=== PATIENT | female | born 1965 | race Hispanic/Latino ===

== ENCOUNTER 2018-03-13 21:04 | Emergency (ER) | payer OTHER ==
--- OUTSIDE RECORDS SUMMARY | 2018-03-13 21:06 | XMS REPORT ---
:1965 Author Organization eClinicalWorks Care Team Providers Name Role Phone Jono Diamond Provider Role Unavailable Allergies, Adverse Reactions, Alerts Substance Reaction Event Type N.K.D.A. Info Not Available Non Drug Allergy Problems Problem Type Condition Code Onset Dates Condition Status Problem Primary osteoarthritis of right M17.11 Active knee Problem Primary osteoarthritis of left knee M17.12 Active Assessment Primary osteoarthritis of right M17.11 Active knee Assessment Primary osteoarthritis of left knee M17.12 Active Assessment Pain, joint, knee, right M25.561 Active Assessment Pain, joint, knee, left M25.562 Active Medications Medication Code Code Instructions Start End Status Dosage System Date Date Metaxalone [facility] 26705829000 800 MG Oral Active TAKE 1 TABLET BY MOUTH EVERY DAY Clonazepam [facility] 25296908665 2 MG Oral Active (Schedule IV Drug) TAKE 1 TABLET BY MOUTH 3 TIMES A DAY FOR 30 DAYS Furosemide [facility] 25105901601 40 MG Oral Active TAKE 1 TABLET BY MOUTH TWICE A DAY Lisinopril-Hydrochlor [facility] 62824020531 20-12.5 MG Active TAKE 1 othiazide Oral TABLET BY MOUTH EVERY MORNING Hydrocodone-Acetamino [facility] 31862200652 7.5-325 MG Active (Schedule phen Oral II Drug) TAKE 1 TABLET BY MOUTH 3 TIMES A DAY Fluoxetine HCl [facility] 10157901947 40 MG Oral Active TAKE 1 CAPSULE BY MOUTH EVERY DAY OneTouch Verio [facility] 56338458229 - In Vitro Active USE ONCE A DAY IN MORNING Allopurinol [facility] 55235313856 100 MG Oral Active TAKE 1/2 TABLET TWICE A DAY Lamotrigine [facility] 88139083062 100 MG Oral Active TAKE 1 TABLET BY MOUTH EVERY DAY MethylPREDNISolone [facility] 62538646010 4 MG Oral Active TAKE BY MOUTH 1 TABLET WITH FOOD OR MILK IN THE MORNING DIRECTED Gabapentin [facility] 66866297206 800 MG Oral Active TAKE 1 TABLET BY MOUTH THREE TIMES A DAY BuPROPion HCl ER (XL) [facility] 55527030728 300 MG Oral Active TAKE 1 TABLET EVERY MORNING Results No Known Results Summary Purpose eClinicalWorks Submission
[2018-03-13 22:39] LABS: Absolute Monocytes 0.7 K/uL (0.1-1.3); Absolute Neutrophil 8.5 K/uL (1.8-8.0); Basophils % 0.9 % (0-1.3); Eosinophils % 0.4 % (0-4.4); Hematocrit 28.6 % (36.0-45.0); Lymphocytes % 9.5 % (15.3-44.8); MCH 27.2 pg (27.0-35.0); MCV 83.9 fL (80-100); MPV 10.3 fL (7.6-11.3); Monocytes % 6.6 % (3.3-12.3); RBC Red Blood Cell Count 3.41 M/uL (3.86-4.86)
[2018-03-13 22:50] LABS: Potassium 3.8 mmol/L (3.5-5.1)
--- NOTE | 2018-03-13 23:43 | EDPHYS ---
Physician Documentation [facility] Name: Jackeline Weinstein Age: 52 yrs Sex: Female : 1965 Arrival Date: 03/13/2018 Time: 21:04 Bed 14 Private MD: Eber Maria E ED Physician Addison Miller HPI: 03/13 22:58 This 52 yrs old Female presents to ER via Wheelchair with complaints of jr8 Breathing Difficulty, left side pain. 22:58 Patient stated that her left shoulder has been hurting all day today. Stated that she jr8 feels short of breath. Denies falling or trauma. Denies past injury to shoulder. Stated that hit hurts to move it . Onset: The symptoms/episode began/occurred acutely, today. Severity of symptoms: At their worst the symptoms were moderate in the emergency department the symptoms are unchanged. The patient has not experienced similar symptoms in the past. The patient has not recently seen a physician. 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 - Social history:: Smoking status: Patient/guardian denies using tobacco. - Ebola Screening: : Patient negative for fever greater than or equal to 101.5 degrees Fahrenheit, and additional compatible Ebola Virus Disease symptoms Patient denies exposure to infectious person Patient denies travel to an Ebola-affected area in the 21 days before illness onset No symptoms or risks identified at this time. ROS: 22:58 Eyes: Negative for injury, pain, redness, and discharge, ENT: Negative for injury, jr8 pain, and discharge, Neck: Negative for injury, pain, and swelling, Cardiovascular: Negative for chest pain, palpitations, and edema, Abdomen/GI: Negative for abdominal pain, nausea, vomiting, diarrhea, and constipation, Back: Negative for injury and pain, Skin: Negative for injury, rash, and discoloration, Neuro: Negative for headache, weakness, numbness, tingling, and seizure. 22:58 Respiratory: Positive for shortness of breath, Negative for cough, dyspnea on exertion, hemoptysis, orthopnea, pleurisy, sputum production, wheezing. 22:58 MS/extremity: Positive for decreased range of motion, pain, tenderness, of the left arm. Exam: 22:58 Eyes: Pupils equal round and reactive to light, extra-ocular motions intact. Lids and jr8 lashes normal. Conjunctiva and sclera are non-icteric and not injected. Cornea within normal limits. Periorbital areas with no swelling, redness, or edema. ENT: Nares patent. No nasal discharge, no septal abnormalities noted. Tympanic membranes are normal and external auditory canals are clear. Oropharynx with no redness, swelling, or masses, exudates, or evidence of obstruction, uvula midline. Mucous membranes moist. Neck: Trachea midline, no thyromegaly or masses palpated, and no cervical lymphadenopathy. Supple, full range of motion without nuchal rigidity, or vertebral point tenderness. No Meningismus. Cardiovascular: Regular rate and rhythm with a normal S1 and S2. No gallops, murmurs, or rubs. Normal PMI, no JVD. No pulse deficits. Respiratory: Lungs have equal breath sounds bilaterally, clear to auscultation and percussion. No rales, rhonchi or wheezes noted. No increased work of breathing, no retractions or nasal flaring. Abdomen/GI: Soft, non-tender, with normal bowel sounds. No distension or tympany. No guarding or rebound. No evidence of tenderness throughout. Back: No spinal tenderness. No costovertebral tenderness. Full range of motion. Skin: Warm, dry with normal turgor. Normal color with no rashes, no lesions, and no evidence of cellulitis. Neuro: Awake and alert, GCS 15, oriented to person, place, time, and situation. Cranial nerves II-XII grossly intact. Motor strength 5/5 in all extremities. Sensory grossly intact. Cerebellar exam normal. Normal gait. 22:58 Musculoskeletal/extremity: Extremities: grossly normal except: noted in the left shoulder: Moderate amount of pain with palpation and ROM. FULL ROM actively but decreased with passive due to pain. Neurovascularly intact with 2+ radial pulses and normal sensation . Vital Signs: 21:13 BP 128 / 68; Pulse 96; Resp 18; Temp 97.5; Pulse Ox 100% on R/A; Weight 117.93 kg; aj Height 5 ft. 3 in. (160.02 cm); 22:30 BP 130 / 70; Pulse 90; Resp 18; Pulse Ox 99% ; Pain 8/10; ea 23:42 BP 132 / 68; Pulse 88; Resp 18; Pulse Ox 100% on R/A; ea 21:13 Body Mass Index 46.06 (117.93 kg, 160.02 cm) aj MDM: 21:59 Patient medically screened. [facility] 23:40 Data reviewed: vital signs, nurses notes, lab test result(s), EKG, radiologic studies, jr8 plain films. Data interpreted: Pulse oximetry: on room air is 100 %. Interpretation: normal. Counseling: I had a detailed discussion with the patient and/or guardian regarding: the historical points, exam findings, and any diagnostic results supporting the discharge/admit diagnosis, lab results, radiology results, the need for outpatient follow up, a family practitioner, to return to the emergency department if symptoms worsen or persist or if there are any questions or concerns that arise at home. ED course: No acute radiographic or laboratory findings. ECG normal. Patient hemodynamically stable. No altered vital signs. No respiratory distress or adventitious breath sounds. To f/u with PCP . 03/13 22:11 Order name: CBC with Diff; Complete Time: 22:57 [facility] 03/13 22:11 Order name: Basic Metabolic Panel; Complete Time: 22:57 [facility] 03/13 22:09 Order name: XRAY Chest Pa And Lat (2 Views) [facility] 03/13 22:09 Order name: XRAY Shoulder LEFT 2 view [facility] 03/13 22:09 Order name: EKG - Nurse/Tech; Complete Time: 22:43 [facility] Administered Medications: 22:30 Drug: [place] 10 mg-325 mg 1 tabs Route: PO; ea 23:55 Follow up: Response: No adverse reaction; Pain is decreased ea Disposition: 03/14 06:52 Co-signature as Attending Physician, Addison Miller MD I agree with the assessment and ps1 plan of care. Disposition: 03/13/18 23:42 Discharged to Home. Impression: Pain in left shoulder, Shortness of breath. - Condition is Stable. - Discharge Instructions: Joint Pain, Arthritis, Shortness of Breath. - Prescriptions for Mobic 7.5 mg Oral Tablet - take 1 tablet by ORAL route once daily take with food; 20 tablet. - Medication Reconciliation Form, Thank You Letter, Antibiotic Education, Prescription Opioid Use form. - Follow up: Eber Maria MD; When: 2 - 3 days; Reason: Recheck today's complaints, Continuance of care, Re-evaluation by your physician. - Problem is new. - Symptoms have improved. Signatures: Dispatcher [employer] EDMS Keren Diaz RN RN Howard Sellers PA PA jr8 Clara Herring RN RN Addison Fried MD MD ps1 Corrections: (The following items were deleted from the chart) 03/13 23:43 23:40 ED course: No acute radiographic or laboratory findings. ECG normal. To f/u with jose PCP . jose 23:56 23:42 03/13/2018 23:42 Discharged to Home. Impression: Pain in left shoulder; Shortness ea of breath. Condition is Stable. Forms are Medication Reconciliation Form, Thank You Letter, Antibiotic Education, Prescription Opioid Use. Follow up: Eber Maria; When: 2 - 3 days; Reason: Recheck today's complaints, Continuance of care, Re-evaluation by your physician. Problem is new. Symptoms have improved. jr8
--- NOTE | 2018-03-13 23:43 | ER ---
Nurse's Notes [facility] Name: Jackeline Weinstein Age: 52 yrs Sex: Female : 1965 Arrival Date: 03/13/2018 Time: 21:04 Bed 14 Private MD: Eber Maria E Diagnosis: Pain in left shoulder;Shortness of breath Presentation: 03/13 21:08 Presenting complaint: Patient states: Left shoulder and arm pain that started this aj afternoon. Transition of care: patient was not received from another setting of care. Onset of symptoms was March 13, 2018. Risk Assessment: Do you want to hurt yourself or someone else? Patient reports no desire to harm self or others. Initial Sepsis Screen: Does the patient meet any 2 criteria? No. Patient's initial sepsis screen is negative. Does the patient have a suspected source of infection? No. Patient's initial sepsis screen is negative. 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 21:08 Method Of Arrival: Wheelchair aj 21:08 Acuity: CHELSY 4 Triage Assessment: 21:13 General: Appears in no apparent distress. comfortable, obese, Behavior is calm, aj cooperative, appropriate for age. Pain: Complains of pain in anterior aspect of left shoulder. Neuro: Level of Consciousness is awake, alert, obeys commands, Oriented to person, place, time, situation, Appropriate for age. Respiratory: Airway is patent Respiratory effort is even, unlabored, Respiratory pattern is regular, symmetrical. Derm: Skin is intact, is healthy with good turgor, Skin is pink, warm \T\ dry. normal. Musculoskeletal: Reports pain in anterior aspect of left shoulder, left bicep, posterior aspect of left shoulder and left tricep. 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 - Social history:: Smoking status: Patient/guardian denies using tobacco. - Ebola Screening: : Patient negative for fever greater than or equal to 101.5 degrees Fahrenheit, and additional compatible Ebola Virus Disease symptoms Patient denies exposure to infectious person Patient denies travel to an Ebola-affected area in the 21 days before illness onset No symptoms or risks identified at this time. Screenin:15 Abuse screen: Denies threats or abuse. Nutritional screening: No deficits noted. ea Tuberculosis screening: No symptoms or risk factors identified. 22:00 Fall Risk None identified. ea Assessment: 22:20 General: Appears uncomfortable, Behavior is calm, cooperative, appropriate for age. ea Pain: Complains of pain in left tricep and posterior aspect of left shoulder and left bicep and anterior aspect of left shoulder. Pain: Pain currently is 10 out of 10 on a pain scale. Quality of pain is described as aching, Is continuous. Neuro: Level of Consciousness is awake, alert, obeys commands, Oriented to person, place, time, situation. Cardiovascular: Heart tones S1 S2 present Patient's skin is warm and dry. Rhythm is sinus rhythm. Respiratory: Airway is patent Respiratory effort is even, unlabored, Respiratory pattern is regular, symmetrical, Breath sounds are clear bilaterally. GI: Abdomen is non-distended, Bowel sounds present X 4 quads. : No signs and/or symptoms were reported regarding the genitourinary system. Derm: No signs and/or symptoms reported regarding the dermatologic system. Skin is pink, warm \T\ dry. Musculoskeletal: Reports pain in left arm. 23:51 Reassessment: Patient and/or family updated on plan of care and expected duration. Pain ea level reassessed. Patient is alert, oriented x 3, equal unlabored respirations, skin warm/dry/pink. Discharge instructions given to patient, verbalized the understanding of instruction. Vital Signs: 21:13 BP 128 / 68; Pulse 96; Resp 18; Temp 97.5; Pulse Ox 100% on R/A; Weight 117.93 kg; aj Height 5 ft. 3 in. (160.02 cm); 22:30 BP 130 / 70; Pulse 90; Resp 18; Pulse Ox 99% ; Pain 8/10; ea 23:42 BP 132 / 68; Pulse 88; Resp 18; Pulse Ox 100% on R/A; ea 21:13 Body Mass Index 46.06 (117.93 kg, 160.02 cm) ED Course: 21:04 Patient arrived in ED. am2 21:05 Eber Maria MD is Private Physician. am2 21:11 Triage completed. aj 21:13 Arm band placed on right wrist. Patient placed in an exam room. aj 21:18 Howard Covarrubias PA is PHCP. jr8 21:18 Addison Miller MD is Attending Physician. jr8 22:16 Clara Herring, ENZO is Primary Nurse. ea 22:20 Patient has correct armband on for positive identification. Bed in low position. Call ea light in reach. Side rails up X2. 22:50 XRAY Chest Pa And Lat (2 Views) In Process Unspecified. EDMS 22:51 XRAY Shoulder LEFT 2 view In Process Unspecified. EDMS 23:42 Eber Maria MD is Referral Physician. jr8 23:53 No provider procedures requiring assistance completed. IV discontinued, intact, ea bleeding controlled, No redness/swelling at site. Pressure dressing applied. Administered Medications: 22:30 Drug: [place] 10 mg-325 mg 1 tabs Route: PO; ea 23:55 Follow up: Response: No adverse reaction; Pain is decreased ea Outcome: 23:42 Discharge ordered by . jr8 23:54 Discharged to home via wheelchair, with significant other. ea 23:54 Condition: good 23:54 Discharge instructions given to patient, Instructed on discharge instructions, follow up and referral plans. medication usage, Demonstrated understanding of instructions, follow-up care, medications, Prescriptions given X 1. 23:56 Patient left the ED. ea Signatures: Dispatcher [employer] EDMS Keern Diaz RN RN Howard Sellers PA PA jrKeren Driver Clara Vasques RN RN ea
--- NOTE | 2018-03-14 07:48 | RAD REPORT ---
EXAM DESCRIPTION: RAD - Shoulder Left 2 View - 03/13/2018 10:50 pm CLINICAL HISTORY: Left shoulder pain FINDINGS: No fracture or dislocation is seen. Marked osteoarthritis involves the acromioclavicular joint mainly consisting of osteophytes and joint space narrowing. This may result in impingement syndrome
--- NOTE | 2018-03-14 07:48 | RAD REPORT ---
EXAM DESCRIPTION: Tri Christianson (2 Views)03/13/2018 10:51 pm CLINICAL HISTORY: Chest pain COMPARISON: 2008 FINDINGS: The lungs appear clear of acute infiltrate. The heart is borderline enlarged IMPRESSION: No acute abnormalities displayed
--- NOTE | 2018-03-14 07:50 | EKG ---
Test Date: 2018-03-13 Test Time: 22:24:38 Siebel Architect: ACE MEASUREMENT RESULTS: Intervals: Rate: 93 [place]: 136 QRSD: 84 QT: 366 QTc: 455 [place]: P: 39 [place]: 136 QRS: 8 T: 19 INTERPRETIVE STATEMENTS: Normal sinus rhythm Normal ECG Compared to ECG 08/06/2008 15:17:31 No significant changes Electronically Signed On 03-14-18 07:49:37 CDT by Ryan Park
== END 2018-03-13 23:56 | disposition home or self-care (01) ==
LOC: ER 21:04
DX: M25.512 Pain in left shoulder (principal); R06.02 Shortness of breath; M79.7 Fibromyalgia; I10 Essential (primary) hypertension; M06.9 Rheumatoid arthritis, unspecified
CPT/HCPCS: 36415; 71046; 80048; 85025; 93005; 99284

== ENCOUNTER 2018-08-05 21:17 | Emergency (ER) | payer OTHER ==
--- OUTSIDE RECORDS SUMMARY | 2018-08-05 21:20 | XMS REPORT ---
[...] End Status Dosage System Date Date Metaxalone [facility] 73007335151 800 MG Oral Active TAKE 1 TABLET BY MOUTH EVERY DAY Clonazepam [facility] 53445202734 2 MG Oral Active (Schedule IV Drug) TAKE 1 TABLET BY MOUTH 3 TIMES A DAY FOR 30 DAYS Furosemide [facility] 49537249032 40 MG Oral Active TAKE 1 TABLET BY MOUTH TWICE A DAY Lisinopril-Hydrochlor [facility] 67084593314 20-12.5 MG Active TAKE 1 othiazide Oral TABLET BY MOUTH EVERY MORNING Hydrocodone-Acetamino [facility] 77851464603 7.5-325 MG Active (Schedule phen Oral II Drug) TAKE 1 TABLET BY MOUTH 3 TIMES A DAY Fluoxetine HCl [facility] 22879126273 40 MG Oral Active TAKE 1 CAPSULE BY MOUTH EVERY DAY OneTouch Verio [facility] 73386806379 - In Vitro Active USE ONCE A DAY IN MORNING Allopurinol [facility] 94943874487 100 MG Oral Active TAKE 1/2 TABLET TWICE A DAY Lamotrigine [facility] 29117265061 100 MG Oral Active TAKE 1 TABLET BY MOUTH EVERY DAY MethylPREDNISolone [facility] 68348028788 4 MG Oral Active TAKE BY MOUTH 1 TABLET WITH FOOD OR MILK IN THE MORNING DIRECTED Gabapentin [facility] 51909373672 800 MG Oral Active TAKE 1 TABLET BY MOUTH THREE TIMES A DAY BuPROPion HCl ER (XL) [facility] 66935270090 300 MG Oral Active TAKE 1 TABLET EVERY MORNING Results No Known Results Summary Purpose eClinicalWorks Submission
--- OUTSIDE RECORDS SUMMARY | 2018-08-05 21:20 | XMS REPORT ---
:1965 [facility] Address [address] [place] [address] [address] [place] [id number] Care Team Providers Name Role Phone Unavailable Unavailable Unavailable Problems This patient has no known problems. Allergies, Adverse Reactions, Alerts This patient has no known allergies or adverse reactions. Medications This patient has no known medications.
--- OUTSIDE RECORDS SUMMARY | 2018-08-05 21:20 | XMS REPORT ---
:1965 Author Organization eClinicalWorks Care Team Providers Name Role Phone Jono Diamond Provider Role Unavailable Allergies, Adverse Reactions, Alerts Substance Reaction Event Type N.K.D.A. Info Not Available Non Drug Allergy Problems Problem Type Condition Code Onset Dates Condition Status Problem Primary osteoarthritis of right knee M17.11 Active Problem Primary osteoarthritis of left knee M17.12 Active Assessment Arthritis of knee, left M17.12 Active Assessment Arthritis of knee, right M17.11 Active Medications Medication Code Code Instructions Start End Status Dosage System Date Date Allopurinol [facility] 45914209565 100 MG Oral Active TAKE 1/2 TABLET TWICE A DAY Lamotrigine [facility] 93145311283 100 MG Oral Active TAKE 1 TABLET BY MOUTH EVERY DAY BuPROPion HCl [facility] 23946280834 300 MG Oral Active TAKE 1 ER (XL) TABLET EVERY MORNING Fluoxetine HCl [facility] 79790137752 40 MG Oral Active TAKE 1 CAPSULE BY MOUTH EVERY DAY OneTouch Verio [facility] 49929484198 - In Vitro Active USE ONCE A DAY IN MORNING Metaxalone [facility] 11481978833 800 MG Oral Active TAKE 1 TABLET BY MOUTH EVERY DAY Gabapentin [facility] 48305360410 800 MG Oral Active TAKE 1 TABLET BY MOUTH THREE TIMES A DAY Latuda [facility] 74954286838 40 MG Orally Active 1 tablet Once a day with food Clonazepam [facility] 66314874041 2 MG Oral Active (Schedule IV Drug) TAKE 1 TABLET BY MOUTH 3 TIMES A DAY FOR 30 DAYS Mobic [facility] 31188865120 7.5 MG Orally Active 1 tablet Once a day Lisinopril-Hydr [facility] 55893042134 20-12.5 MG Oral Active TAKE 1 ochlorothiazide TABLET BY MOUTH EVERY MORNING Furosemide ND 02857291257 40 MG Oral Active TAKE 1 TABLET BY MOUTH TWICE A DAY Hydrocodone-Leno [facility] 36125226927 7.5-325 MG Oral Active (Schedule taminophen II Drug) TAKE 1 TABLET BY MOUTH 3 TIMES A DAY Results No Known Results Summary Purpose eClinicalWorks Submission
--- OUTSIDE RECORDS SUMMARY | 2018-08-05 21:20 | XMS REPORT ---
:1965 Author Organization eClinicalWorks Care Team Providers Name Role Phone Jono Diamond Provider Role Unavailable Allergies, Adverse Reactions, Alerts Substance Reaction Event Type N.K.D.A. Info Not Available Non Drug Allergy Problems Problem Type Condition Code Onset Dates Condition Status Problem Primary osteoarthritis of right M17.11 Active knee Problem Primary osteoarthritis of left knee M17.12 Active Assessment Acute pain of left knee M25.562 Active Assessment Acute pain of right knee M25.561 Active Assessment Primary osteoarthritis of right M17.11 Active knee Assessment Arthritis of knee, left M17.12 Active Medications Medication Code Code Instructions Start End Status Dosage System Date Date Fluoxetine HCl [facility] 54171313008 40 MG Oral Active TAKE 1 CAPSULE BY MOUTH EVERY DAY Hydrocodone-Leno [facility] 53416742275 7.5-325 MG Oral Active (Schedule taminophen II Drug) TAKE 1 TABLET BY MOUTH 3 TIMES A DAY Lisinopril-Hydr [facility] 43202108387 20-12.5 MG Oral Active TAKE 1 ochlorothiazide TABLET BY MOUTH EVERY MORNING Allopurinol [facility] 54903804311 100 MG Oral Active TAKE 1/2 TABLET TWICE A DAY BuPROPion HCl [facility] [id number] 300 MG Oral Active TAKE 1 ER (XL) TABLET EVERY MORNING Metaxalone [facility] [id number] 800 MG Oral Active TAKE 1 TABLET BY MOUTH EVERY DAY Gabapentin [facility] 81741941976 800 MG Oral Active TAKE 1 TABLET BY MOUTH THREE TIMES A DAY Mobic [facility] 41414607309 7.5 MG Orally Active 1 tablet Once a day Lamotrigine [facility] 10285789145 100 MG Oral Active TAKE 1 TABLET BY MOUTH EVERY DAY Furosemide [facility] 54500353785 40 MG Oral Active TAKE 1 TABLET BY MOUTH TWICE A DAY Clonazepam [facility] [id number] 2 MG Oral Active (Schedule IV Drug) TAKE 1 TABLET BY MOUTH 3 TIMES A DAY FOR 30 DAYS Latuda [facility] 74674757609 40 MG Orally Active 1 tablet Once a day with food OneTouch Verio [facility] [id number] - In Vitro Active USE ONCE A DAY IN MORNING Results No Known Results Summary Purpose eClinicalWorks Submission
[2018-08-05 22:35] LABS: Protime INR 1.07
[2018-08-05 22:36] LABS: Absolute Lymphocytes (CBC) 2.2 K/uL (0.7-4.9); Absolute Monocytes 1.4 K/uL (0.1-1.3); Absolute Neutrophil 10.8 K/uL (1.8-8.0); Basophils % 0.8 % (0-1.3); Eosinophils % 0.6 % (0-4.4); Hematocrit 32.3 % (36.0-45.0); Lymphocytes % 14.8 % (15.3-44.8); Monocytes % 9.8 % (3.3-12.3); RBC Red Blood Cell Count 3.78 M/uL (3.86-4.86)
[2018-08-05] MEDS ORDERED: ONDANSETRON 4 MG/2 ML VIAL ONE (22:46)
[2018-08-05] MEDS ORDERED: MORPHINE 4 MG/ML SYR ONE (22:46)
[2018-08-05 22:50] LABS: ALT/SGPT 22 U/L (12-78); AST/SGOT 15 U/L (15-37); Albumin 3.7 g/dL (3.4-5.0); Alkaline Phosphatase 181 U/L (45-117); BUN Blood Urea Nitrogen 14 mg/dL (7-18); Bicarbonate 25 mmol/L (21-32); Bilirubin Direct 0.2 mg/dL (0-0.2); Bilirubin Total 0.4 mg/dL (0.2-1.0); Glucose Level 120 mg/dL (74-106); Magnesium 2.1 mg/dL (1.8-2.4); NT PRO-BNP 127 pg/mL (<125); Potassium 4.2 mmol/L (3.5-5.1); Protein, Total 7.7 g/dL (6.4-8.2); Sodium Level 136 mmol/L (136-145); Troponin (Emerg Dept Use Only) < 0.02 ng/mL (0.0-0.045)
--- NOTE | 2018-08-06 00:29 | ER ---
Nurse's Notes [facility] Name: Jackeline Weinstein Age: 52 yrs Sex: Female : 1965 Arrival Date: 08/05/2018 Time: 21:20 Bed 27 Private MD: Eber Maria E Diagnosis: Chest pain, unspecified;Pain in right shoulder;Other chronic pain Presentation: 08/05 21:36 Presenting complaint: Patient states: she is having shortness of breath and pain with bb respirations and chest pain aching and sore pain is constant pain radiates down right arm and into her back symptoms started today after lunch and seem to be getting worse. Transition of care: patient was not received from another setting of care. Onset of symptoms was August 05, 2018. Risk Assessment: Do you want to hurt yourself or someone else? Patient reports no desire to harm self or others. Initial Sepsis Screen: Does the patient meet any 2 criteria? No. Patient's initial sepsis screen is negative. Does the patient have a suspected source of infection? No. Patient's initial sepsis screen is negative. Care prior to arrival: None. 21:36 Method Of Arrival: Wheelchair bb 21:36 Acuity: CHELSY 3 bb Triage Assessment: 22:04 Respiratory: Onset: The symptoms/episode began/occurred today, the patient has mild jd3 shortness of breath. 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 - Hysterectomy bb Historical: - Allergies: 21:46 Lyrica; bb - Home Meds: 21:46 bupropion HCl 300 mg oral Tb24 once daily [Active]; Buspirone Oral [Active]; bb hydrocodone-acetaminophen 7.5-325 mg Oral tab 1 tab three times a day [Active]; Klonopin Oral [Active]; Prozac Oral [Active]; hydroxychloroquine 200 mg oral tab 1 tab 2 times per day [Active]; furosemide 20 mg Oral tab 1 tab once daily [Active]; lamotrigine 100 mg oral TbDL 1 tab once daily [Active]; indomethacin 25 mg Oral cap 1 cap daily [Active]; Allopurinol 50 mg Oral 2 times per day [Active]; rifampin 300 mg Oral cap 2 caps once daily [Active]; lisinopril-hydrochlorothiazide 20-12.5 mg oral tab 1 tab once daily [Active]; metaxalone 800 mg oral tab 1 tab twice a day [Active]; gabapentin 800 mg oral tab 1 tab 3 times per day [Active]; - PMHx: 21:46 Chronic pain; Fibromyalgia; Gout; Hypertension; Rheumatoid Arthritis; bb - PSHx: 21:46 Gastric Bypass; ; Hysterectomy; Cholecystectomy; bb - Immunization history:: Adult Immunizations up to date. - Social history:: Smoking status: Patient/guardian denies using tobacco. - Ebola Screening: : No symptoms or risks identified at this time. Screenin:04 Abuse screen: Denies threats or abuse. Nutritional screening: No deficits noted. jd3 Tuberculosis screening: No symptoms or risk factors identified. Fall Risk Ambulatory Aid- None/Bed Rest/Nurse Assist (0 pts). Gait- Normal/Bed Rest/Wheelchair (0 pts) Mental Status- Oriented to own ability (0 pts). Total Morrow Fall Scale indicates No Risk (0-24 pts). Assessment: 22:03 General: Appears uncomfortable, Behavior is cooperative, appropriate for age, anxious. jd3 Pain: Complains of pain in chest Quality of pain is described as pressure. Neuro: Level of Consciousness is awake, alert, obeys commands, Oriented to person, place, time, situation, Appropriate for age. Cardiovascular: Heart tones S1 S2 present Capillary refill < 3 seconds Patient's skin is warm and dry. Rhythm is regular. Respiratory: Reports shortness of breath at rest Airway is patent Respiratory effort is even, unlabored, Respiratory pattern is regular, symmetrical, Breath sounds are clear bilaterally. GI: No signs and/or symptoms were reported involving the gastrointestinal system. : No signs and/or symptoms were reported regarding the genitourinary system. EENT: No signs and/or symptoms were reported regarding the EENT system. Derm: Skin is intact, Skin is dry, Skin is normal, Skin temperature is warm. Musculoskeletal: Circulation, motion, and sensation intact. Range of motion: intact in all extremities. 23:00 Reassessment: Patient appears in no apparent distress at this time. Patient and/or jd3 family updated on plan of care and expected duration. Pain level reassessed. Patient is alert, oriented x 3, equal unlabored respirations, skin warm/dry/pink. 23:22 Reassessment: Patient and/or family updated on plan of care and expected duration. Pain tl3 level reassessed. Patient is alert, oriented x 3, equal unlabored respirations, skin warm/dry/pink. pt states that pain is better since pain meds, no other needs at this time. 08/06 00:13 Reassessment: Patient appears in no apparent distress at this time. No changes from tl3 previously documented assessment. Patient and/or family updated on plan of care and expected duration. Pain level reassessed. Patient is alert, oriented x 3, equal unlabored respirations, skin warm/dry/pink. 00:43 Reassessment: Patient appears in no apparent distress at this time. No changes from tl3 previously documented assessment. Patient and/or family updated on plan of care and expected duration. Pain level reassessed. Patient is alert, oriented x 3, equal unlabored respirations, skin warm/dry/pink. Vital Signs: 08/05 21:46 BP 144 / 68; Pulse 89; Resp 18 S; Temp 99.8(O); Pulse Ox 100% on R/A; Weight 117.93 kg bb (R); Height 5 ft. 3 in. (160.02 cm) (R); Pain 9/10; 23:00 BP 121 / 54; Pulse 91; Resp 17 S; Pulse Ox 100% on R/A; jd3 08/06 00:13 BP 118 / 50; Pulse 88; Resp 18; Pulse Ox 100% on R/A; tl3 08/05 21:46 Body Mass Index 46.06 (117.93 kg, 160.02 cm) bb ED Course: 08/05 21:20 Patient arrived in ED. es 21:21 Eber Maria MD is Private Physician. es 21:38 Triage completed. bb 21:46 Arm band placed on right wrist. Family accompanied patient. bb 21:54 John Fleming NP is PHCP. pm1 21:54 Nomi Amaya MD is Attending Physician. pm1 22:03 Greyson Galeana, ENZO is Primary Nurse. jd3 22:05 Patient has correct armband on for positive identification. Placed in gown. Bed in low jd3 position. Call light in reach. Side rails up X 1. Adult w/ patient. 22:45 XRAY Chest (1 view) In Process Unspecified. EDMS 23:22 No provider procedures requiring assistance completed. Inserted saline lock: 20 gauge tl3 in right antecubital area, using aseptic technique. 08/06 00:43 IV discontinued, intact, bleeding controlled, No redness/swelling at site. Pressure tl3 dressing applied. Administered Medications: 08/05 22:41 Drug: morphine 4 mg Route: IVP; Site: right antecubital; jd3 23:23 Follow up: Response: Marked relief of symptoms tl3 22:41 Drug: Zofran 4 mg Route: IVP; Site: right antecubital; jd3 23:23 Follow up: Response: Marked relief of symptoms tl3 08/06 00:42 Drug: morphine 4 mg Route: IVP; Infused Over: 2 mins; Site: right antecubital; tl3 00:42 Follow up: Response: Medication administered at discharge. tl3 Outcome: 00:27 Discharge ordered by . pm1 00:43 Discharged to home via wheelchair. tl3 00:43 Discharged to home 00:43 Condition: stable 00:43 Discharge instructions given to patient, family, Instructed on discharge instructions, follow up and referral plans. medication usage, Demonstrated understanding of instructions, follow-up care, medications, Prescriptions given X 1. 00:44 Patient left the ED. tl3 Signatures: Dispatcher [employer] Dottie Mccarthy Brenda, RN RN bb Marinas, Patrick, NP TEACHER [employer] pm1 Greyson Galeana RN RN jArmida Cobb RN RN tl3
--- NOTE | 2018-08-06 00:29 | EDPHYS ---
Physician Documentation [facility] Name: Jackeline Weinstein Age: 52 yrs Sex: Female : 1965 Arrival Date: 08/05/2018 Time: 21:20 Bed 27 Private MD: Eber Maria E ED Physician Nomi Amaya HPI: 08/05 22:00 This 52 yrs old Female presents to ER via Wheelchair with complaints of pm1 Shoulder Pain, WHOLE RT SIDE PAIN, Breathing Difficulty. 22:00 The patient or guardian reports chest pain that is located primarily in the anterior pm1 aspect of right upper chest. Onset: this morning. The pain does not radiate. Associated signs and symptoms: Pertinent negatives: cough, diaphoresis, dizziness, headache, nausea, palpitations, shortness of breath, vomiting. The chest pain is described as sharp. Duration: The patient or guardian reports a single episode. Modifying factors: The symptoms are alleviated by nothing. the symptoms are aggravated by movement of left arm. Severity of pain: in the emergency department the pain is actually worse. The patient has experienced similar episodes in the past, chronically. The patient has not recently seen a physician. 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 - Hysterectomy bb Historical: - Allergies: 21:46 Lyrica; bb - Home Meds: 21:46 bupropion HCl 300 mg oral Tb24 once daily [Active]; Buspirone Oral [Active]; bb hydrocodone-acetaminophen 7.5-325 mg Oral tab 1 tab three times a day [Active]; Klonopin Oral [Active]; Prozac Oral [Active]; hydroxychloroquine 200 mg oral tab 1 tab 2 times per day [Active]; furosemide 20 mg Oral tab 1 tab once daily [Active]; lamotrigine 100 mg oral TbDL 1 tab once daily [Active]; indomethacin 25 mg Oral cap 1 cap daily [Active]; Allopurinol 50 mg Oral 2 times per day [Active]; rifampin 300 mg Oral cap 2 caps once daily [Active]; lisinopril-hydrochlorothiazide 20-12.5 mg oral tab 1 tab once daily [Active]; metaxalone 800 mg oral tab 1 tab twice a day [Active]; gabapentin 800 mg oral tab 1 tab 3 times per day [Active]; - PMHx: 21:46 Chronic pain; Fibromyalgia; Gout; Hypertension; Rheumatoid Arthritis; bb - PSHx: 21:46 Gastric Bypass; ; Hysterectomy; Cholecystectomy; bb - Immunization history:: Adult Immunizations up to date. - Social history:: Smoking status: Patient/guardian denies using tobacco. - Ebola Screening: : No symptoms or risks identified at this time. ROS: 22:00 Constitutional: Negative for fever, chills, and weight loss, Eyes: Negative for injury, pm1 pain, redness, and discharge, ENT: Negative for injury, pain, and discharge, Neck: Negative for injury, pain, and swelling. 22:00 Respiratory: Negative for shortness of breath, cough, wheezing, and pleuritic chest pain, Abdomen/GI: Negative for abdominal pain, nausea, vomiting, diarrhea, and constipation, Back: Negative for injury and pain, : Negative for injury, bleeding, discharge, and swelling. 22:00 Skin: Negative for injury, rash, and discoloration, Neuro: Negative for headache, weakness, numbness, tingling, and seizure. 22:00 Cardiovascular: Positive for chest pain, Negative for edema, palpitations. 22:00 MS/extremity: Positive for pain, of the right shoulder. Exam: 22:00 Constitutional: This is a well developed, well nourished patient who is awake, alert, pm1 and in no acute distress. Head/Face: Normocephalic, atraumatic. Eyes: Pupils equal round and reactive to light, extra-ocular motions intact. Lids and lashes normal. Conjunctiva and sclera are non-icteric and not injected. Cornea within normal limits. Periorbital areas with no swelling, redness, or edema. ENT: Nares patent. No nasal discharge, no septal abnormalities noted. Tympanic membranes are normal and external auditory canals are clear. Oropharynx with no redness, swelling, or masses, exudates, or evidence of obstruction, uvula midline. Mucous membranes moist. Neck: Trachea midline, no thyromegaly or masses palpated, and no cervical lymphadenopathy. Supple, full range of motion without nuchal rigidity, or vertebral point tenderness. No Meningismus. 22:00 Cardiovascular: Regular rate and rhythm with a normal S1 and S2. No gallops, murmurs, or rubs. Normal PMI, no JVD. No pulse deficits. Respiratory: Lungs have equal breath sounds bilaterally, clear to auscultation and percussion. No rales, rhonchi or wheezes noted. No increased work of breathing, no retractions or nasal flaring. Abdomen/GI: Soft, non-tender, with normal bowel sounds. No distension or tympany. No guarding or rebound. No evidence of tenderness throughout. Back: No spinal tenderness. No costovertebral tenderness. Full range of motion. Skin: Warm, dry with normal turgor. Normal color with no rashes, no lesions, and no evidence of cellulitis. MS/ Extremity: Pulses equal, no cyanosis. Neurovascular intact. Full, normal range of motion. 22:00 Chest/axilla: Inspection: normal, Palpation: tenderness, of the anterior aspect of right upper chest, that totally reproduces the patient's complaints, rotation of right arm and shoulder reproduces pain. 22:00 Neuro: Orientation: is normal, Motor: is normal, moves all fours, Sensation: is normal, no obvious gross deficits. Vital Signs: 21:46 BP 144 / 68; Pulse 89; Resp 18 S; Temp 99.8(O); Pulse Ox 100% on R/A; Weight 117.93 kg bb (R); Height 5 ft. 3 in. (160.02 cm) (R); Pain 9/10; 23:00 BP 121 / 54; Pulse 91; Resp 17 S; Pulse Ox 100% on R/A; jd3 08/06 00:13 BP 118 / 50; Pulse 88; Resp 18; Pulse Ox 100% on R/A; tl3 08/05 21:46 Body Mass Index 46.06 (117.93 kg, 160.02 cm) bb MDM: 08/05 21:55 Patient medically screened. [facility] 22:06 Data reviewed: vital signs. Data interpreted: Pulse oximetry: on room air is 100 %. pm1 Interpretation: normal. 08/06 00:26 Counseling: I had a detailed discussion with the patient and/or guardian regarding: the pm1 historical points, exam findings, and any diagnostic results supporting the discharge/admit diagnosis, lab results, radiology results, the need for outpatient follow up, to return to the emergency department if symptoms worsen or persist or if there are any questions or concerns that arise at home. 08/05 22:07 Order name: NT PRO-BNP; Complete Time: 22:54 pm1 08/05 22:07 Order name: Basic Metabolic Panel; Complete Time: 22:54 pm08/05 22:07 Order name: CBC with Diff; Complete Time: 22:54 pm08/05 22:07 Order name: LFT's; Complete Time: 22:54 pm1 08/05 22:07 Order name: Magnesium; Complete Time: 22:54 pm08/05 22:07 Order name: PT-INR; Complete Time: 22:54 pm08/05 22:07 Order name: Troponin (emerg Dept Use Only); Complete Time: 22:54 pm08/05 22:07 Order name: XRAY Chest (1 view) pm08/05 22:07 Order name: EKG; Complete Time: 22:07 pm08/06 00:14 Order name: Urine Dipstick--Ancillary (enter results); Complete Time: 00:39 ar08/06 00:14 Order name: Urine --Ancillary (enter results); Complete Time: 00:39 08/05 22:07 Order name: Cardiac monitoring; Complete Time: 22:18 pm08/05 22:07 Order name: EKG - Nurse/Tech; Complete Time: 22:18 pm08/05 22:07 Order name: IV Saline Lock; Complete Time: 22:42 pm08/05 22:07 Order name: Labs collected and sent; Complete Time: 22:42 pm08/05 22:07 Order name: O2 Per Protocol; Complete Time: 22:18 pm08/05 22:07 Order name: O2 Sat Monitoring; Complete Time: 22:18 pm08/05 22:07 Order name: Urine Dipstick-Ancillary (obtain specimen); Complete Time: 00:13 pm08/05 22:07 Order name: Urine Test (obtain specimen); Complete Time: 00:13 pm1 Administered Medications: 08/05 22:41 Drug: morphine 4 mg Route: IVP; Site: right antecubital; jd3 23:23 Follow up: Response: Marked relief of symptoms tl3 22:41 Drug: Zofran 4 mg Route: IVP; Site: right antecubital; jd3 23:23 Follow up: Response: Marked relief of symptoms tl3 08/06 00:42 Drug: morphine 4 mg Route: IVP; Infused Over: 2 mins; Site: right antecubital; tl3 00:42 Follow up: Response: Medication administered at discharge. tl3 Disposition: 08/06/18 00:27 Discharged to Home. Impression: Chest pain, unspecified, Pain in right shoulder, Other chronic pain. - Condition is Stable. - Discharge Instructions: Nonspecific Chest Pain, Chronic Pain, Musculoskeletal Pain, Shoulder Pain. - Prescriptions for Mobic 7.5 mg Oral Tablet - take 1 tablet by ORAL route once daily take with food; 20 tablet. - Medication Reconciliation Form, Thank You Letter, Antibiotic Education, Prescription Opioid Use form. - Follow up: Emergency Department; When: As needed; Reason: Worsening of condition. Follow up: Private Physician; When: 2 - 3 days; Reason: Recheck today's complaints, Continuance of care, Re-evaluation by your physician. - Problem is new. - Symptoms have improved. Addendum: 08/09/2018 06:55 Co-signature as Attending Physician, Nomi Amaya MD I agree with the assessment and c mcallister plan of care. Signatures: Dispatcher [employer] EDKS Nomi Amaya MD MD cha Ballard, Brenda RN RN bb John Fleming NP PROSTHETIC DENTIST pm1 Greyson Galeana RN RN jArmida Cobb RN RN tl3 Corrections: (The following items were deleted from the chart) 08/06 00:44 00:27 08/06/2018 00:27 Discharged to Home. Impression: Chest pain, unspecified; Pain in tl3 right shoulder; Other chronic pain. Condition is Stable. Forms are Medication Reconciliation Form, Thank You Letter, Antibiotic Education, Prescription Opioid Use. Follow up: Emergency Department; When: As needed; Reason: Worsening of condition. Follow up: Private Physician; When: 2 - 3 days; Reason: Recheck today's complaints, Continuance of care, Re-evaluation by your physician. Problem is new. Symptoms have improved. pm1
[2018-08-06 00:37] LABS: Urine Blood NEGATIVE (NEG); Urine Glucose NEGATIVE (NEG); Urine Protein NEGATIVE (NEG); Urine Specific Gravity 1.015 (1.005-1.030); Urine pH 6.5 (5.0-7.0)
[2018-08-06] MEDS ORDERED: MORPHINE 4 MG/ML SYR ONE (00:47)
--- NOTE | 2018-08-06 06:37 | EKG ---
Test Date: 2018-08-05 Test Time: 21:59:37 Marketing Researcher: ADA MEASUREMENT RESULTS: Intervals: Rate: 86 NC: 144 QRSD: 78 QT: 362 QTc: 433 [place]: P: 28 NC: 144 QRS: 26 T: 21 INTERPRETIVE STATEMENTS: Normal sinus rhythm Normal ECG Compared to ECG 03/13/2018 22:24:38 No significant changes Electronically Signed On 08-06-18 06:36:12 WALLBOARD WORKER by Ryan Park
--- NOTE | 2018-08-06 09:09 | RAD REPORT ---
EXAM DESCRIPTION: RAD - Chest Single View - 08/05/2018 10:46 pm CLINICAL HISTORY: Chest pain, shortness of breath COMPARISON: February 2018 TECHNIQUE: AP portable chest image was obtained 2244 hours . FINDINGS: Lung volumes are low. Portable technique, shallow inspiration and large body habitus accen tuate chest findings. No peripheral mass, consolidation or significant failure. Heart and vasculature are normal. No measurable pleural effusion and no pneumothorax. No acute bony abnormality seen. No a cute aortic findings suspected. IMPRESSION: Significant, acute cardiopulmonary finding is doubtful. Portable technique, shallow inspiration and large body habitus limit assessment.
== END 2018-08-06 00:44 | disposition home or self-care (01) ==
LOC: ER 21:17
DX: R07.9 Chest pain, unspecified (principal); G89.29 Other chronic pain; I10 Essential (primary) hypertension; M10.9 Gout, unspecified; Z88.8 Allergy status to other drugs, medicaments and biological substances
CPT/HCPCS: 36415; 71045; 80048; 80076; 81003; 81025; 83735; 83880; 84484; 85025; 85610; 93005; 96374; 96375; 99284; J2405

== ENCOUNTER 2018-09-02 09:38 | Emergency (ER) | payer OTHER ==
--- OUTSIDE RECORDS SUMMARY | 2018-09-02 09:40 | XMS REPORT ---
[...] End Status Dosage System Date Date Metaxalone [facility] [id number] 800 MG Oral Active TAKE 1 TABLET BY MOUTH EVERY DAY Clonazepam [facility] 14500275188 2 MG Oral Active (Schedule IV Drug) TAKE 1 TABLET BY MOUTH 3 TIMES A DAY FOR 30 DAYS Furosemide [facility] 41787155313 40 MG Oral Active TAKE 1 TABLET BY MOUTH TWICE A DAY Lisinopril-Hydrochlor [facility] 26232039231 20-12.5 MG Active TAKE 1 othiazide Oral TABLET BY MOUTH EVERY MORNING Hydrocodone-Acetamino [facility] 41926628089 7.5-325 MG Active (Schedule phen Oral II Drug) TAKE 1 TABLET BY MOUTH 3 TIMES A DAY Fluoxetine HCl [facility] 90937609780 40 MG Oral Active TAKE 1 CAPSULE BY MOUTH EVERY DAY OneTouch Verio [facility] 96910630657 - In Vitro Active USE ONCE A DAY IN MORNING Allopurinol [facility] 36026035946 100 MG Oral Active TAKE 1/2 TABLET TWICE A DAY Lamotrigine [facility] 70573529293 100 MG Oral Active TAKE 1 TABLET BY MOUTH EVERY DAY MethylPREDNISolone [facility] 39663983270 4 MG Oral Active TAKE BY MOUTH 1 TABLET WITH FOOD OR MILK IN THE MORNING DIRECTED Gabapentin [facility] 50875788150 800 MG Oral Active TAKE 1 TABLET BY MOUTH THREE TIMES A DAY BuPROPion HCl ER (XL) [facility] 33387603001 300 MG Oral Active TAKE 1 TABLET EVERY MORNING Results No Known Results Summary Purpose eClinicalWorks Submission
--- OUTSIDE RECORDS SUMMARY | 2018-09-02 09:40 | XMS REPORT ---
[...] Status Dosage System Date Date Fluoxetine HCl [facility] [id number] 40 MG Oral Active TAKE 1 CAPSULE BY MOUTH EVERY DAY Hydrocodone-Leno [facility] 61809138701 7.5-325 MG Oral Active (Schedule taminophen II Drug) TAKE 1 TABLET BY MOUTH 3 TIMES A DAY Lisinopril-Hydr [facility] 17201371835 20-12.5 MG Oral Active TAKE 1 ochlorothiazide TABLET BY MOUTH EVERY MORNING Allopurinol [facility] 68150264769 100 MG Oral Active TAKE 1/2 TABLET TWICE A DAY BuPROPion HCl [facility] 66871630338 300 MG Oral Active TAKE 1 ER (XL) TABLET EVERY MORNING Metaxalone [facility] 37946849916 800 MG Oral Active TAKE 1 TABLET BY MOUTH EVERY DAY Gabapentin [facility] 39344970238 800 MG Oral Active TAKE 1 TABLET BY MOUTH THREE TIMES A DAY Mobic [facility] 96856992578 7.5 MG Orally Active 1 tablet Once a day Lamotrigine [facility] 66041807466 100 MG Oral Active TAKE 1 TABLET BY MOUTH EVERY DAY Furosemide [facility] 27557454378 40 MG Oral Active TAKE 1 TABLET BY MOUTH TWICE A DAY Clonazepam [facility] 04989775766 2 MG Oral Active (Schedule IV Drug) TAKE 1 TABLET BY MOUTH 3 TIMES A DAY FOR 30 DAYS Latuda [facility] 25608182035 40 MG Orally Active 1 tablet Once a day with food OneTouch Verio [facility] [id number] - In Vitro Active USE ONCE A DAY IN MORNING Results No Known Results Summary Purpose eClinicalWorks Submission
--- OUTSIDE RECORDS SUMMARY | 2018-09-02 09:40 | XMS REPORT ---
[...] End Status Dosage System Date Date Allopurinol [facility] 11533038298 100 MG Oral Active TAKE 1/2 TABLET TWICE A DAY Lamotrigine [facility] 46229690859 100 MG Oral Active TAKE 1 TABLET BY MOUTH EVERY DAY BuPROPion HCl [facility] 30322543649 300 MG Oral Active TAKE 1 ER (XL) TABLET EVERY MORNING Fluoxetine HCl [facility] 12727592308 40 MG Oral Active TAKE 1 CAPSULE BY MOUTH EVERY DAY OneTouch Verio [facility] 79608197060 - In Vitro Active USE ONCE A DAY IN MORNING Metaxalone [facility] 91453863167 800 MG Oral Active TAKE 1 TABLET BY MOUTH EVERY DAY Gabapentin [facility] 10829253871 800 MG Oral Active TAKE 1 TABLET BY MOUTH THREE TIMES A DAY Latuda [facility] 41379925369 40 MG Orally Active 1 tablet Once a day with food Clonazepam [facility] 39108906216 2 MG Oral Active (Schedule IV Drug) TAKE 1 TABLET BY MOUTH 3 TIMES A DAY FOR 30 DAYS Mobic [facility] 97559032976 7.5 MG Orally Active 1 tablet Once a day Lisinopril-Hydr [facility] 03105973687 20-12.5 MG Oral Active TAKE 1 ochlorothiazide TABLET BY MOUTH EVERY MORNING Furosemide [place] 79389254156 40 MG Oral Active TAKE 1 TABLET BY MOUTH TWICE A DAY Hydrocodone-Leno [facility] 10043378109 7.5-325 MG Oral Active (Schedule taminophen II Drug) TAKE 1 TABLET BY MOUTH 3 TIMES A DAY Results No Known Results Summary Purpose eClinicalWorks Submission
--- OUTSIDE RECORDS SUMMARY | 2018-09-02 09:40 | XMS REPORT ---
:1965 [facility] Address [address] [place] [address] Dr. [address] [place] [id number] Care Team Providers Name Role Phone Unavailable Unavailable Unavailable Problems This patient has no known problems. Allergies, Adverse Reactions, Alerts This patient has no known allergies or adverse reactions. Medications This patient has no known medications.
[2018-09-02] MEDS ORDERED: ONDANSETRON 4 MG/2 ML VIAL ONE ×2 (10:52→13:27)
[2018-09-02] MEDS ORDERED: FAMOTIDINE 20 MG/2 ML VIAL IV ONE (10:52)
--- NOTE | 2018-09-02 11:00 | RAD REPORT ---
EXAM DESCRIPTION: Tri Single View09/02/2018 10:39 am CLINICAL HISTORY: Shortness of breath COMPARISON: July 2018 FINDINGS: The lungs appear clear of acute infiltrate. The heart is normal size IMPRESSION: No acute abnormalities displayed
[2018-09-02 11:18] LABS: Absolute Lymphocytes (CBC) 2.3 K/uL (0.7-4.9); Absolute Monocytes 0.5 K/uL (0.1-1.3); Absolute Neutrophil 5.3 K/uL (1.8-8.0); Eosinophils % 0.4 % (0-4.4); Hematocrit 35.4 % (36.0-45.0); Lymphocytes % 27.4 % (15.3-44.8); MPV 10.7 fL (7.6-11.3); Monocytes % 6.1 % (3.3-12.3); RBC Red Blood Cell Count 4.21 M/uL (3.86-4.86)
[2018-09-02 11:24] LABS: Protime INR 1.15
[2018-09-02 11:36] LABS: ALT/SGPT 20 U/L (12-78); AST/SGOT 20 U/L (15-37); Albumin 3.9 g/dL (3.4-5.0); Alkaline Phosphatase 178 U/L (45-117); BUN Blood Urea Nitrogen 10 mg/dL (7-18); Bicarbonate 25 mmol/L (21-32); Bilirubin Direct < 0.1 mg/dL (0-0.2); Bilirubin Total 0.2 mg/dL (0.2-1.0); Glucose Level 117 mg/dL (74-106); Lipase 298 U/L (73-393); Magnesium 1.9 mg/dL (1.8-2.4); NT PRO-BNP 142 pg/mL (<125); Potassium 3.8 mmol/L (3.5-5.1); Protein, Total 8.3 g/dL (6.4-8.2); Sodium Level 137 mmol/L (136-145); Troponin (Emerg Dept Use Only) < 0.02 ng/mL (0.0-0.045)
--- NOTE | 2018-09-02 12:23 | RAD REPORT ---
EXAM DESCRIPTION: US - Abdomen Exam Limited - 09/02/2018 12:08 pm CLINICAL HISTORY: Abdominal pain, prior cholecystectomy COMPARISON: None. FINDINGS: Gallbladder is absent. Common bile duct is 7 mm which is normal for a post cholecystectomy patient. No biliary tree dilatation or duct stone identifiable. Imaged portions of the liver parench yma show no suspicious findings. Pancreas is grossly normal but partially obscured by bowel. IMPRESSION: Status post cholecystectomy with no biliary tree abnormality. Pancreas is grossly normal but partially obscured.
[2018-09-02] MEDS ORDERED: PANTOPRAZOLE 40 MG INJ ONE (13:27)
[2018-09-02] MEDS ORDERED: LIDOCAINE VISCOUS 2% SOLN 15 ML UDC ONE (13:27)
[2018-09-02] MEDS ORDERED: MAGNE/ALUM HYDROXD 30 ML UCUP ONE (13:27)
--- NOTE | 2018-09-02 13:36 | EDPHYS ---
Physician Documentation [facility] Name: Jackeline Weinstein Age: 52 yrs Sex: Female : 1965 Arrival Date: 09/02/2018 Time: 09:41 Bed 7 Private MD: Eber Maria E ED Physician Galindo Norton HPI: 09/02 10:22 This 52 yrs old Female presents to ER via Ambulatory with complaints of cp Shortness Of Breath. 10:22 The patient has shortness of breath with light activity. Onset: The symptoms/episode cp began/occurred 1 week(s) ago. Duration: The symptoms are intermittent. Associated signs and symptoms: Pertinent positives: nausea, upper abdominal pain, Pertinent negatives: productive cough, diaphoresis, fever. Severity of symptoms: in the emergency department the symptoms are unchanged despite home interventions. 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 - Hysterectomy hb Historical: - Allergies: 10:11 Lyrica; hb - Home Meds: 10:15 Allopurinol 50 mg Oral 2 times per day [Active]; bupropion HCl 300 mg Oral Tb24 once hb daily [Active]; Buspirone Oral [Active]; furosemide 20 mg Oral tab 1 tab once daily [Active]; gabapentin 800 mg Oral tab 1 tab 3 times per day [Active]; hydrocodone-acetaminophen 5-163 mg/7.5mL(7.5mL) oral soln [Active]; hydroxychloroquine 200 mg Oral tab 1 tab 2 times per day [Active]; indomethacin 25 mg Oral cap 1 cap daily [Active]; Klonopin Oral [Active]; lamotrigine 100 mg Oral TbDL 1 tab once daily [Active]; lisinopril Oral [Active]; lisinopril-hydrochlorothiazide 20-12.5 mg Oral tab 1 tab once daily [Active]; metaxalone 800 mg Oral tab 1 tab twice a day [Active]; Prozac Oral [Active]; rifampin 300 mg Oral cap 2 caps once daily [Active]; - PMHx: 10:11 Chronic pain; Fibromyalgia; Gout; Hypertension; Rheumatoid Arthritis; hb - PSHx: 10:11 Gastric Bypass; ; Cholecystectomy; Hysterectomy; hb - Immunization history:: Adult Immunizations up to date. - Social history:: Smoking status: Patient/guardian denies using tobacco. - Ebola Screening: : No symptoms or risks identified at this time. ROS: 10:30 Constitutional: Negative for body aches, chills, fever, poor PO intake, weight loss. cp 10:30 Eyes: Negative for injury, pain, redness, and discharge. cp 10:30 ENT: Negative for drainage from ear(s), ear pain, sore throat, difficulty swallowing, difficulty handling secretions. 10:30 Cardiovascular: Negative for chest pain, edema, palpitations. 10:30 Respiratory: Positive for shortness of breath, Negative for cough, wheezing. 10:30 Abdomen/GI: Positive for abdominal pain, nausea, diarrhea, of the right upper quadrant and left upper quadrant, Negative for vomiting, constipation, dysphagia, black/tarry stool, rectal bleeding. 10:30 Back: Negative for pain at rest, pain with movement, radiated pain. 10:30 : Negative for urinary symptoms, flank pain. 10:30 Skin: Negative for cellulitis, rash. 10:30 Neuro: Negative for altered mental status, headache, numbness, weakness. 10:30 All other systems are negative. Exam: 10:35 Constitutional: The patient appears in no acute distress, alert, awake, cp non-diaphoretic, non-toxic, well developed, well nourished, obese. 10:35 Head/Face: Normocephalic, atraumatic. Eyes: Pupils equal round and reactive to light, cp extra-ocular motions intact. Lids and lashes normal. Conjunctiva and sclera are non-icteric and not injected. Cornea within normal limits. Periorbital areas with no swelling, redness, or edema. ENT: Nares patent. No nasal discharge, no septal abnormalities noted. Tympanic membranes are normal and external auditory canals are clear. Oropharynx with no redness, swelling, or masses, exudates, or evidence of obstruction, uvula midline. Mucous membranes moist. Neck: Trachea midline, no thyromegaly or masses palpated, and no cervical lymphadenopathy. Supple, full range of motion without nuchal rigidity, or vertebral point tenderness. No Meningismus. Chest/axilla: Normal chest wall appearance and motion. Nontender with no deformity. No lesions are appreciated. 10:35 Cardiovascular: Rate: normal, Rhythm: regular, Edema: is not appreciated, JVD: is not appreciated. 10:35 Respiratory: the patient does not display signs of respiratory distress, Respirations: normal, no use of accessory muscles, no retractions, no splinting, no tachypnea, labored breathing, is not present, Breath sounds: are clear throughout, no decreased breath sounds, no stridor, no wheezing. 10:35 Abdomen/GI: Inspection: obese Bowel sounds: active, all quadrants, Palpation: abdomen is soft and non-tender, in all quadrants, rebound tenderness, is not appreciated, voluntary guarding, is not appreciated, involuntary guarding, is not appreciated. 10:35 Back: pain, is absent, ROM is normal. 10:35 Skin: cellulitis, is not appreciated, no rash present. 10:35 Neuro: Orientation: to person, place \T\ time. Mentation: is normal, Cerebellar function: is grossly normal, Motor: is normal, Sensation: is normal. 11:00 ECG was reviewed by the Attending Physician. cp Vital Signs: 10:11 BP 154 / 76; Pulse 96; Resp 16; Temp 98.2; Pulse Ox 96% on R/A; Pain 8/10; hb 11:24 BP 131 / 64; Pulse 75; Resp 12; Pulse Ox 99% on R/A; aj 13:23 BP 138 / 58; Pulse 87; Resp 16; Pulse Ox 99% on R/A; aj 13:55 BP 137 / 68; Pulse 81; Resp 16; Pulse Ox 99% on R/A; aj MDM: 10:22 Patient medically screened. cp 11:00 Differential diagnosis: Bronchitis Chronic Obstructive Pulmonary Disease pneumonia, cp pulmonary edema, Pulmonary Embolism Unstable Angina gastritis, pancreatitis, bowel obstruction. 13:35 Data reviewed: vital signs, nurses notes, lab test result(s), EKG, radiologic studies, cp plain films, ultrasound, and as a result, I will discharge patient. 13:35 Test interpretation: by ED physician or midlevel provider: ECG, plain radiologic cp studies. 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 Response to treatment: the patient's symptoms have markedly improved after treatment, and as a result, I will discharge patient. 09/02 10:22 Order name: Basic Metabolic Panel; Complete Time: 11:37 cp / 11:37 Interpretation: Normal except: GLUC 117; GFR 67. cp 09/02 10:22 Order name: CBC with Diff; Complete Time: 11:37 cp 09/02 11:38 Interpretation: Normal except: HGB 11.3; HCT 35.4; MCH 26.9; RDW 16.0. cp 09/02 10:22 Order name: LFT's; Complete Time: 11:41 cp 09/02 11:42 Interpretation: Normal except: ALK 178; TP 8.3; GLOB 4.4; A/G 0.9. cp 09/02 10:22 Order name: Magnesium; Complete Time: 11:41 cp 09/02 10:22 Order name: NT PRO-BNP; Complete Time: 11:41 cp 09/02 11:43 Interpretation: Normal except: NT PRO-BNP 142. cp 09/02 10:22 Order name: PT-INR; Complete Time: 11:37 cp 09/02 11:38 Interpretation: PT 13.7; Reviewed. cp 09/02 10:22 Order name: Troponin (emerg Dept Use Only); Complete Time: 11:38 cp 09/02 11:38 Interpretation: Abnormal: TROPED < 0.02. cp 09/02 10:22 Order name: XRAY Chest (1 view); Complete Time: 11:12 cp 09/02 11:12 Interpretation: Report review. cp 09/02 10:22 Order name: Lipase; Complete Time: 11:41 cp 09/02 11:43 Interpretation: LIP 298; Reviewed. cp 09/02 11:45 Order name: US Abdomen Limited; Complete Time: 12:26 cp 09/02 12:26 Interpretation: Report reviewed. cp 09/02 11:45 Order name: Stool Culture cp 09/02 11:45 Order name: CDIFF cp 09/02 12:41 Order name: Urine Dipstick--Ancillary (enter results); Complete Time: 21:20 eb 09/02 10:22 Order name: EKG; Complete Time: 10:23 cp 09/02 10:22 Order name: Cardiac monitoring; Complete Time: 10:47 cp 09/02 10:22 Order name: EKG - Nurse/Tech; Complete Time: 10:47 cp 09/02 10:22 Order name: IV Saline Lock; Complete Time: 11:08 cp 09/02 10:22 Order name: Labs collected and sent; Complete Time: 11:08 cp 09/02 10:22 Order name: O2 Per Protocol; Complete Time: 10:47 cp 09/02 10:22 Order name: O2 Sat Monitoring; Complete Time: 10:47 cp EC:00 Rate is 84 beats/min. Rhythm is regular. DC interval is normal. QRS interval is normal. cp QT interval is normal. T waves are Inverted in lead III. Interpreted by me. Reviewed by me. Administered Medications: 11:07 Drug: Zofran 4 mg Route: IVP; Site: right antecubital; aj 12:32 Follow up: Response: Nausea is decreased aj 11:07 Drug: Pepcid 20 mg Route: IVP; Site: right antecubital; aj 12:31 Follow up: Response: No adverse reaction; Nausea is decreased aj 13:21 Drug: Zofran 4 mg Route: IVP; Site: right antecubital; aj 13:51 Follow up: Response: No adverse reaction aj 13:22 Drug: GI Cocktail without - (Maalox Suspension 30 ml, Lidocaine Liquid 2 % 15 aj ml) Route: PO; 13:51 Follow up: Response: No adverse reaction aj 13:22 Drug: ProTONIX 40 mg Route: IVP; Site: right antecubital; aj 13:51 Follow up: Response: No adverse reaction aj Disposition: 15:11 Co-signature as Attending Physician, Galindo Norton MD I agree with the assessment and kdr plan of care. Disposition: 09/02/18 13:35 Discharged to Home. Impression: Diarrhea, unspecified, Nausea. - Condition is Stable. - Discharge Instructions: Food Choices to Help Relieve Diarrhea, Adult, Diarrhea, Adult, Nausea, Adult. - Prescriptions for Protonix 40 mg Oral Tablet - take 1 tablet by ORAL route once daily; 30 tablet. Zofran 4 mg Oral Tablet - take 1 tablet by ORAL route every 12 hours As needed; 20 tablet. - Medication Reconciliation Form, Thank You Letter, Antibiotic Education, Prescription Opioid Use form. - Follow up: Eber Cabrera MD; When: 2 - 3 days; Reason: Recheck today's complaints. - Problem is new. - Symptoms have improved. Signatures: Dispatcher [employer] Keren Gleason RN RN aj Galindo Norton MD MD kdr Page, Corey, PA PA cp Nancy Gonzalez RN RN Corrections: (The following items were deleted from the chart) 13:57 13:35 09/02/2018 13:35 Discharged to Home. Impression: Diarrhea, unspecified; Nausea. aj Condition is Stable. Forms are Medication Reconciliation Form, Thank You Letter, Antibiotic Education, Prescription Opioid Use. Follow up: Eber Cabrera; When: 2 - 3 days; Reason: Recheck today's complaints. Problem is new. Symptoms have improved. cp
--- NOTE | 2018-09-02 13:36 | ER ---
Nurse's Notes [facility] Name: Jackeline Weinstein Age: 52 yrs Sex: Female : 1965 Arrival Date: 09/02/2018 Time: 09:41 Bed 7 Private MD: Eber Maria E Diagnosis: Diarrhea, unspecified;Nausea Presentation: 09/02 10:11 Presenting complaint: Upper abdominal pain and SOB x 1 week. Transition of care: hb patient was not received from another setting of care. Onset of symptoms was August 27, 2018. Risk Assessment: Do you want to hurt yourself or someone else? Patient reports no desire to harm self or others. Initial Sepsis Screen: Does the patient meet any 2 criteria? No. Patient's initial sepsis screen is negative. Does the patient have a suspected source of infection? No. Patient's initial sepsis screen is negative. Care prior to arrival: None. 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 - Hysterectomy hb Historical: - Allergies: 10:11 Lyrica; hb - Home Meds: 10:15 Allopurinol 50 mg Oral 2 times per day [Active]; bupropion HCl 300 mg Oral Tb24 once hb daily [Active]; Buspirone Oral [Active]; furosemide 20 mg Oral tab 1 tab once daily [Active]; gabapentin 800 mg Oral tab 1 tab 3 times per day [Active]; hydrocodone-acetaminophen 5-163 mg/7.5mL(7.5mL) oral soln [Active]; hydroxychloroquine 200 mg Oral tab 1 tab 2 times per day [Active]; indomethacin 25 mg Oral cap 1 cap daily [Active]; Klonopin Oral [Active]; lamotrigine 100 mg Oral TbDL 1 tab once daily [Active]; lisinopril Oral [Active]; lisinopril-hydrochlorothiazide 20-12.5 mg Oral tab 1 tab once daily [Active]; metaxalone 800 mg Oral tab 1 tab twice a day [Active]; Prozac Oral [Active]; rifampin 300 mg Oral cap 2 caps once daily [Active]; - PMHx: 10:11 Chronic pain; Fibromyalgia; Gout; Hypertension; Rheumatoid Arthritis; hb - PSHx: 10:11 Gastric Bypass; ; Cholecystectomy; Hysterectomy; hb - Immunization history:: Adult Immunizations up to date. - Social history:: Smoking status: Patient/guardian denies using tobacco. - Ebola Screening: : No symptoms or risks identified at this time. Screenin:16 Abuse screen: Denies threats or abuse. Denies injuries from another. Nutritional hb screening: No deficits noted. Tuberculosis screening: No symptoms or risk factors identified. Fall Risk None identified. Assessment: 11:05 General: Appears in no apparent distress. comfortable, Behavior is calm, cooperative, aj appropriate for age. Pain: Denies pain. Neuro: Level of Consciousness is awake, alert, obeys commands, Oriented to person, place, time, situation, Appropriate for age. Cardiovascular: Capillary refill < 3 seconds in bilateral fingers Patient's skin is warm and dry. Rhythm is regular. Respiratory: Reports shortness of breath Airway is patent Respiratory effort is even, unlabored, Respiratory pattern is regular, symmetrical, Breath sounds are clear bilaterally. GI: Reports diarrhea, indigestion. Derm: Skin is intact, is healthy with good turgor, Skin is pink, warm \T\ dry. normal. 13:22 Reassessment: Patient appears in no apparent distress at this time. No changes from aj previously documented assessment. Patient and/or family updated on plan of care and expected duration. Pain level reassessed. Patient is alert, oriented x 3, equal unlabored respirations, skin warm/dry/pink. 13:55 Reassessment: Patient appears in no apparent distress at this time. No changes from aj previously documented assessment. Patient and/or family updated on plan of care and expected duration. Pain level reassessed. Patient is alert, oriented x 3, equal unlabored respirations, skin warm/dry/pink. Vital Signs: 10:11 BP 154 / 76; Pulse 96; Resp 16; Temp 98.2; Pulse Ox 96% on R/A; Pain 8/10; hb 11:24 BP 131 / 64; Pulse 75; Resp 12; Pulse Ox 99% on R/A; aj 13:23 BP 138 / 58; Pulse 87; Resp 16; Pulse Ox 99% on R/A; aj 13:55 BP 137 / 68; Pulse 81; Resp 16; Pulse Ox 99% on R/A; aj ED Course: 09:41 Patient arrived in ED. sb2 09:41 Maria, Eber, MD is Private Physician. sb2 10:10 Nomi Pagan PA is PHCP. cp 10:10 Galindo Norton MD is Attending Physician. cp 10:11 Arm band placed on. hb 10:12 Triage completed. hb 10:12 Keren Diaz, RN is Primary Nurse. aj 10:16 Patient has correct armband on for positive identification. Bed in low position. Call hb light in reach. Side rails up X 1. 10:37 X-ray completed. Portable x-ray completed in exam room. Patient tolerated procedure kw well. 10:39 XRAY Chest (1 view) In Process Unspecified. EDMS 11:05 Inserted saline lock: 20 gauge in right antecubital area, using aseptic technique. aj Blood collected. 11:06 EKG done, by snow technician. reviewed by Nomi ESPINOZA. at1 11:07 Lipase Sent. aj 11:08 Basic Metabolic Panel Sent. aj 11:08 CBC with Diff Sent. aj 11:08 LFT's Sent. aj 11:08 Magnesium Sent. aj 11:08 NT PRO-BNP Sent. aj 11:08 PT-INR Sent. aj 11:08 Troponin (emerg Dept Use Only) Sent. aj 11:31 Noise minimized. Lights dimmed. Pillow given. aj 12:09 US Abdomen Limited In Process Unspecified. EDMS 12:10 Ultrasound completed. Patient moved back from ultrasound. aa4 12:36 Urine collected: clean catch specimen, clear. dh3 13:34 Eber Cabrera MD is Referral Physician. cp 13:55 No provider procedures requiring assistance completed. IV discontinued, intact, aj bleeding controlled, No redness/swelling at site. Pressure dressing applied. 13:57 Stool Culture Sent. aj 13:57 CDIFF Sent. aj Administered Medications: 11:07 Drug: Zofran 4 mg Route: IVP; Site: right antecubital; aj 12:32 Follow up: Response: Nausea is decreased aj 11:07 Drug: Pepcid 20 mg Route: IVP; Site: right antecubital; aj 12:31 Follow up: Response: No adverse reaction; Nausea is decreased aj 13:21 Drug: Zofran 4 mg Route: IVP; Site: right antecubital; aj 13:51 Follow up: Response: No adverse reaction aj 13:22 Drug: GI Cocktail without - (Maalox Suspension 30 ml, Lidocaine Liquid 2 % 15 aj ml) Route: PO; 13:51 Follow up: Response: No adverse reaction aj 13:22 Drug: ProTONIX 40 mg Route: IVP; Site: right antecubital; aj 13:51 Follow up: Response: No adverse reaction aj Outcome: 13:35 Discharge ordered by . costa 13:55 Discharged to home ambulatory. aj 13:55 Condition: good 13:55 Discharge instructions given to patient, family, Instructed on discharge instructions, follow up and referral plans. medication usage, Demonstrated understanding of instructions, follow-up care, medications, Prescriptions given X 2. 13:57 Patient left the ED. noni Signatures: Dispatcher [employer] EDMS Keren Diaz, RN RN Keren Lares aa4 Juli Sosa Amanda, roofing apprentice EKG Tat1 Nomi Pagan PA PA cp Baxter, Heather, RN RN hb Herrera, Deanna 3 Marilee Peterson sb2
[2018-09-02 14:14] LABS: Urine Blood TRACE (NEG); Urine Glucose NEGATIVE (NEG); Urine Protein TRACE (NEG)
--- NOTE | 2018-09-02 16:17 | EKG ---
Test Date: 2018-09-02 Test Time: 10:52:07 Manager Of Photography: JOSE MEASUREMENT RESULTS: Intervals: Rate: 84 ME: 138 QRSD: 78 QT: 374 QTc: 441 [place]: P: 40 ME: 138 QRS: 6 T: 20 INTERPRETIVE STATEMENTS: Normal sinus rhythm Normal ECG Compared to ECG 08/05/2018 21:59:37 No significant changes Electronically Signed On 09-02-18 16:16:51 RESEARCH ASSISTANT by Ryan Park
== END 2018-09-02 13:57 | disposition home or self-care (01) ==
LOC: ER 09:38
DX: R19.7 Diarrhea, unspecified (principal); I10 Essential (primary) hypertension; Z88.8 Allergy status to other drugs, medicaments and biological substances
CPT/HCPCS: 36415; 71045; 76705; 80048; 80076; 81003; 83690; 83735; 83880; 84484; 85025; 85610; 87045; 87046; 87493; 93005; 96374; 96375; 99284; C9113; J2405

== ENCOUNTER 2019-01-28 18:21 | Emergency (ER) | payer OTHER ==
--- OUTSIDE RECORDS SUMMARY | 2019-01-28 18:23 | XMS REPORT ---
:1965 Author Organization [facility] Address [address] [place] [address] Dr. [address] [place] [id number] Care Team Providers Name Role Phone Unavailable Unavailable Unavailable Problems This patient has no known problems. Allergies, Adverse Reactions, Alerts This patient has no known allergies or adverse reactions. Medications This patient has no known medications.
--- OUTSIDE RECORDS SUMMARY | 2019-01-28 18:24 | XMS REPORT ---
[...] End Status Dosage System Date Date Metaxalone [facility] 61692187532 800 MG Oral Active TAKE 1 TABLET BY MOUTH EVERY DAY Clonazepam [facility] 85011829175 2 MG Oral Active (Schedule IV Drug) TAKE 1 TABLET BY MOUTH 3 TIMES A DAY FOR 30 DAYS Furosemide [facility] 92023242490 40 MG Oral Active TAKE 1 TABLET BY MOUTH TWICE A DAY Lisinopril-Hydrochlor [facility] 96794213043 20-12.5 MG Active TAKE 1 othiazide Oral TABLET BY MOUTH EVERY MORNING Hydrocodone-Acetamino [facility] 13029780878 7.5-325 MG Active (Schedule phen Oral II Drug) TAKE 1 TABLET BY MOUTH 3 TIMES A DAY Fluoxetine HCl [facility] 32276806011 40 MG Oral Active TAKE 1 CAPSULE BY MOUTH EVERY DAY OneTouch Verio [facility] 37644792030 - In Vitro Active USE ONCE A DAY IN MORNING Allopurinol [facility] 18977836329 100 MG Oral Active TAKE 1/2 TABLET TWICE A DAY Lamotrigine [facility] 66743607230 100 MG Oral Active TAKE 1 TABLET BY MOUTH EVERY DAY MethylPREDNISolone [facility] 47942232005 4 MG Oral Active TAKE BY MOUTH 1 TABLET WITH FOOD OR MILK IN THE MORNING DIRECTED Gabapentin [facility] 88611922540 800 MG Oral Active TAKE 1 TABLET BY MOUTH THREE TIMES A DAY BuPROPion HCl ER (XL) [facility] 23488877753 300 MG Oral Active TAKE 1 TABLET EVERY MORNING Results No Known Results Summary Purpose eClinicalWorks Submission
--- OUTSIDE RECORDS SUMMARY | 2019-01-28 18:24 | XMS REPORT ---
[...] Status Dosage System Date Date Fluoxetine HCl [facility] 34270512857 40 MG Oral Active TAKE 1 CAPSULE BY MOUTH EVERY DAY Hydrocodone-Leno [facility] 80251991891 7.5-325 MG Oral Active (Schedule taminophen II Drug) TAKE 1 TABLET BY MOUTH 3 TIMES A DAY Lisinopril-Hydr [facility] 12804855578 20-12.5 MG Oral Active TAKE 1 ochlorothiazide TABLET BY MOUTH EVERY MORNING Allopurinol [facility] 91614223241 100 MG Oral Active TAKE 1/2 TABLET TWICE A DAY BuPROPion HCl [facility] 47413274590 300 MG Oral Active TAKE 1 ER (XL) TABLET EVERY MORNING Metaxalone [facility] 51009797301 800 MG Oral Active TAKE 1 TABLET BY MOUTH EVERY DAY Gabapentin [facility] 84197148230 800 MG Oral Active TAKE 1 TABLET BY MOUTH THREE TIMES A DAY Mobic [facility] 06017831674 7.5 MG Orally Active 1 tablet Once a day Lamotrigine [facility] 82063973679 100 MG Oral Active TAKE 1 TABLET BY MOUTH EVERY DAY Furosemide [facility] 89663680846 40 MG Oral Active TAKE 1 TABLET BY MOUTH TWICE A DAY Clonazepam [facility] 52487341662 2 MG Oral Active (Schedule IV Drug) TAKE 1 TABLET BY MOUTH 3 TIMES A DAY FOR 30 DAYS Latuda [facility] 73608075333 40 MG Orally Active 1 tablet Once a day with food OneTouch Verio [facility] 30197817602 - In Vitro Active USE ONCE A DAY IN MORNING Results No Known Results Summary Purpose eClinicalWorks Submission
--- OUTSIDE RECORDS SUMMARY | 2019-01-28 18:24 | XMS REPORT ---
[...] End Status Dosage System Date Date Allopurinol [facility] 16950717308 100 MG Oral Active TAKE 1/2 TABLET TWICE A DAY Lamotrigine [facility] 42454394063 100 MG Oral Active TAKE 1 TABLET BY MOUTH EVERY DAY BuPROPion HCl [facility] 73499757983 300 MG Oral Active TAKE 1 ER (XL) TABLET EVERY MORNING Fluoxetine HCl [facility] 07652575968 40 MG Oral Active TAKE 1 CAPSULE BY MOUTH EVERY DAY OneTouch Verio [facility] 98728587801 - In Vitro Active USE ONCE A DAY IN MORNING Metaxalone [facility] 07066694200 800 MG Oral Active TAKE 1 TABLET BY MOUTH EVERY DAY Gabapentin [facility] 83666834949 800 MG Oral Active TAKE 1 TABLET BY MOUTH THREE TIMES A DAY Latuda [facility] 41068175663 40 MG Orally Active 1 tablet Once a day with food Clonazepam [facility] 49023939332 2 MG Oral Active (Schedule IV Drug) TAKE 1 TABLET BY MOUTH 3 TIMES A DAY FOR 30 DAYS Mobic [facility] 56124263550 7.5 MG Orally Active 1 tablet Once a day Lisinopril-Hydr [facility] 52467800230 20-12.5 MG Oral Active TAKE 1 ochlorothiazide TABLET BY MOUTH EVERY MORNING Furosemide ND 80145643905 40 MG Oral Active TAKE 1 TABLET BY MOUTH TWICE A DAY Hydrocodone-Leno [facility] 85964137538 7.5-325 MG Oral Active (Schedule taminophen II Drug) TAKE 1 TABLET BY MOUTH 3 TIMES A DAY Results No Known Results Summary Purpose eClinicalWorks Submission
--- OUTSIDE RECORDS SUMMARY | 2019-01-28 18:24 | XMS REPORT ---
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 Active Assessment Arthritis of knee, right M17.11 Active Medications Medication Code Code Instructions Start End Status Dosage System Date Date Gabapentin [facility] 55680545574 800 MG Oral Active TAKE 1 TABLET BY MOUTH THREE TIMES A DAY Metaxalone [facility] 16362052676 800 MG Oral Active TAKE 1 TABLET BY MOUTH EVERY DAY Mobic [facility] 08740879878 7.5 MG Orally Active 1 tablet Once a day Fluoxetine HCl [facility] 64934512253 40 MG Oral Active TAKE 1 CAPSULE BY MOUTH EVERY DAY Furosemide [facility] 66911439515 40 MG Oral Active TAKE 1 TABLET BY MOUTH TWICE A DAY Allopurinol [facility] 30788586891 100 MG Oral Active TAKE 1/2 TABLET TWICE A DAY Hydrocodone-Leno [facility] 87462930865 7.5-325 MG Oral Active (Schedule taminophen II Drug) TAKE 1 TABLET BY MOUTH 3 TIMES A DAY Latuda [facility] 24393512537 40 MG Orally Active 1 tablet Once a day with food Clonazepam [facility] 47514029886 2 MG Oral Active (Schedule IV Drug) TAKE 1 TABLET BY MOUTH 3 TIMES A DAY FOR 30 DAYS BuPROPion HCl [facility] 95885889815 300 MG Oral Active TAKE 1 ER (XL) TABLET EVERY MORNING OneTouch Verio [facility] 58184621806 - In Vitro Active USE ONCE A DAY IN MORNING Lisinopril-Hydr [facility] 95019129701 20-12.5 MG Oral Active TAKE 1 ochlorothiazide TABLET BY MOUTH EVERY MORNING Lamotrigine [facility] 89090077801 100 MG Oral Active TAKE 1 TABLET BY MOUTH EVERY DAY Results No Known Results Summary Purpose eClinicalWorks Submission
[2019-01-28] MEDS ORDERED: CYCLOBENZAPRINE 10 MG TAB ONE (19:21)
[2019-01-28] MEDS ORDERED: HYDROCODONE/APAP 5/325 MG TAB ONE (19:21)
--- NOTE | 2019-01-28 19:54 | RAD REPORT ---
EXAM DESCRIPTION: RAD - Shoulder Left 2 View - 01/28/2019 7:38 pm CLINICAL HISTORY: PAIN Fall, left shoulder pain COMPARISON: <Comparisons> FINDINGS: Left shoulder, left humerus and left forearm-multiple projections are submitted Minimally displaced fracture is seen involving the greater tuberosity of the proximal left humerus. A C joint degenerative changes are present. No additional fracture seen. No dislocation.
--- NOTE | 2019-01-28 20:08 | ER ---
Nurse's Notes [facility] Name: Jackeline Weinstein Age: 53 yrs Sex: Female : 1965 Arrival Date: 01/28/2019 Time: 18:24 Bed 20 Private MD: Diagnosis: Fracture of upper end of humerus-Minimally displaced fracture of greater tuberosity of proximal left humerus Presentation: 01/28 18:31 Presenting complaint: Patient states: I fell from standing on to the concrete on to my la1 left side yesterday. My left shoulder is hurting badly but it is hurting all the way down to my forearm. Transition of care: patient was not received from another setting of care. Onset of symptoms was January 28, 2019. Risk Assessment: Do you want to hurt yourself or someone else? Patient reports no desire to harm self or others. Initial Sepsis Screen: Does the patient meet any 2 criteria? No. Patient's initial sepsis screen is negative. Does the patient have a suspected source of infection? No. Patient's initial sepsis screen is negative. Care prior to arrival: None. 18:31 Method Of Arrival: Ambulatory la1 18:31 Acuity: CHELSY 4 la1 Historical: - Allergies: 18:31 Lyrica; la1 - Home Meds: 19:15 Allopurinol 50 mg Oral 2 times per day [Active]; bupropion HCl 300 mg Oral Tb24 once cc3 daily [Active]; Buspirone Oral [Active]; furosemide 20 mg Oral tab 1 tab once daily [Active]; gabapentin 800 mg Oral tab 1 tab 3 times per day [Active]; hydrocodone-acetaminophen 5-163 mg/7.5mL(7.5mL) Oral soln [Active]; hydroxychloroquine 200 mg Oral tab 1 tab 2 times per day [Active]; indomethacin 25 mg Oral cap 1 cap daily [Active]; Klonopin Oral [Active]; lamotrigine 100 mg Oral TbDL 1 tab once daily [Active]; lisinopril Oral [Active]; lisinopril-hydrochlorothiazide 20-12.5 mg Oral tab 1 tab once daily [Active]; metaxalone 800 mg Oral tab 1 tab twice a day [Active]; Prozac Oral [Active]; rifampin 300 mg Oral cap 2 caps once daily [Active]; - PMHx: 18:31 Chronic pain; Fibromyalgia; Gout; Hypertension; Rheumatoid Arthritis; la1 - Immunization history:: Adult Immunizations up to date. - Social history:: Smoking status: Patient/guardian denies using tobacco. - Ebola Screening: : No symptoms or risks identified at this time. Screenin:43 Abuse screen: Denies threats or abuse. Nutritional screening: No deficits noted. em Tuberculosis screening: No symptoms or risk factors identified. Fall Risk None identified. Assessment: 18:42 General: Appears in no apparent distress. comfortable, Behavior is calm, cooperative. em Pain: Complains of pain in anterior aspect of left shoulder Pain currently is 8 out of 10 on a pain scale. Neuro: Level of Consciousness is awake, alert, obeys commands, Oriented to person, place, time, situation. Cardiovascular: Capillary refill < 3 seconds Patient's skin is warm and dry. Respiratory: Airway is patent Respiratory effort is even, unlabored, Respiratory pattern is regular, symmetrical. GI:. Derm: Skin is intact, is healthy with good turgor, Skin is pink, warm \T\ dry. Musculoskeletal: Circulation, motion, and sensation intact. Capillary refill < 3 seconds, Range of motion: limited in left shoulder. 19:10 General: Appears in no apparent distress. comfortable, Behavior is calm, cooperative, cc3 appropriate for age. Pain: Complains of pain in left shoulder and anterior aspect of left shoulder Pain radiates to left forearm Quality of pain is described as aching, Pain began 1 day ago. Neuro: Level of Consciousness is awake, alert, obeys commands, Oriented to person, place, time, situation, Appropriate for age. Cardiovascular: Denies chest pain, Capillary refill < 3 seconds Patient's skin is warm and dry. Respiratory: Airway is patent Respiratory effort is even, unlabored, Respiratory pattern is regular, symmetrical. GI: Abdomen is round non-distended. : No signs and/or symptoms were reported regarding the genitourinary system. EENT: No signs and/or symptoms were reported regarding the EENT system. Derm: Skin is intact, is healthy with good turgor, Skin is pink, warm \T\ dry. normal. Musculoskeletal: Circulation, motion, and sensation intact. Capillary refill < 3 seconds, Range of motion: limited in left shoulder and anterior aspect of left shoulder and left arm. 20:45 Reassessment: Patient appears in no apparent distress at this time. Patient and/or cc3 family updated on plan of care and expected duration. Pain level reassessed. Patient is alert, oriented x 3, equal unlabored respirations, skin warm/dry/pink. LEAH Lopez discharged the patient home, no prescription given. No IV cannula in situ. Patient left ER vitally stable and ambulatory with her . No valuables left in the patient's room. Patient denies pain at this time. Patient states feeling better. Patient states symptoms have improved. Vital Signs: 18:33 BP 131 / 59; Pulse 71; Resp 16; Temp 97.4; Pulse Ox 98% on R/A; Weight 113.4 kg; Height la1 5 ft. 3 in. (160.02 cm); 19:15 BP 104 / 54; Pulse 73; Resp 16 S; Temp 97.7(O); Pulse Ox 96% on R/A; cc3 20:35 BP 119 / 59; Pulse 67; Resp 17 S; Pulse Ox 97% on R/A; cc3 18:33 Body Mass Index 44.29 (113.40 kg, 160.02 cm) la1 ED Course: 18:24 Patient arrived in ED. rg4 18:33 Triage completed. la1 18:33 Arm band placed on left wrist. la1 18:42 Gerard Reno LVN is Primary Nurse. em 18:43 Patient has correct armband on for positive identification. Bed in low position. Call em light in reach. Side rails up X2. Adult w/ patient. 18:46 John Fleming NP is PHCP. pm1 18:46 Brea Telles MD is Attending Physician. pm1 19:38 Shoulder Left (2 View) XRAY In Process Unspecified. EDMS 19:38 Humerus Left XRAY In Process Unspecified. EDMS 19:39 Forearm Left XRAY In Process Unspecified. EDMS 20:46 No provider procedures requiring assistance completed. Patient did not have IV access cc3 during this emergency room visit. Administered Medications: 19:10 Drug: Flexeril 10 mg Route: PO; cc3 20:03 Follow up: Response: No adverse reaction; Pain is decreased cc3 19:10 Drug: [place] 5 mg-325 mg 1 tabs Route: PO; cc3 20:03 Follow up: Response: No adverse reaction; Pain is decreased cc3 20:20 Drug: morphine 4 mg Route: IM; Site: left gluteus; cc3 20:46 Follow up: Response: No adverse reaction; Pain is decreased cc3 Outcome: 20:07 Discharge ordered by . pm1 20:46 Patient left the ED. cc3 20:46 Discharged to home ambulatory, with family. cc3 20:46 Condition: stable 20:46 Discharge instructions given to patient, family, Instructed on discharge instructions, follow up and referral plans. Demonstrated understanding of instructions, follow-up care. Signatures: Dispatcher [employer] EDGerard Mcclain, ANABELA SARAVIAN Michael Small RN RN la1 John Fleming, LEAH BI MANAGER pm1 Sherlyn Jacobs Charlene cc3
--- NOTE | 2019-01-28 20:08 | EDPHYS ---
Physician Documentation [facility] Name: Jackeline Weinstein Age: 53 yrs Sex: Female : 1965 Arrival Date: 01/28/2019 Time: 18:24 Bed 20 Private MD: ED Physician Brea Telles HPI: 01/28 18:59 This 53 yrs old Female presents to ER via Ambulatory with complaints of Left pm1 Shoulder Pain and left arm pain. 18:59 The patient or guardian complains of pain, that is acute. pm1 18:59 The complaints affect the anterior aspect of left shoulder. Context: The problem was pm1 sustained outdoors. Onset: The symptoms/episode began/occurred yesterday. Treatment prior to arrival includes: prescription medications, hydrocodone. Modifying factors: The symptoms are alleviated by remaining still, the symptoms are aggravated by movement, left arm. Associated signs and symptoms: Pertinent negatives: decreased range of motion, deformity, numbness, tingling. Severity of symptoms: in the emergency department the symptoms are unchanged. The patient has not experienced similar symptoms in the past. Patient getting into her car on passenger side and tripped on her slipper. Patient fell down with left arm outstretched. 18:59 No headache, head injury, neck pain, LOC. pm1 Historical: - Allergies: 18:31 Lyrica; la1 - Home Meds: 19:15 Allopurinol 50 mg Oral 2 times per day [Active]; bupropion HCl 300 mg Oral Tb24 once cc3 daily [Active]; Buspirone Oral [Active]; furosemide 20 mg Oral tab 1 tab once daily [Active]; gabapentin 800 mg Oral tab 1 tab 3 times per day [Active]; hydrocodone-acetaminophen 5-163 mg/7.5mL(7.5mL) Oral soln [Active]; hydroxychloroquine 200 mg Oral tab 1 tab 2 times per day [Active]; indomethacin 25 mg Oral cap 1 cap daily [Active]; Klonopin Oral [Active]; lamotrigine 100 mg Oral TbDL 1 tab once daily [Active]; lisinopril Oral [Active]; lisinopril-hydrochlorothiazide 20-12.5 mg Oral tab 1 tab once daily [Active]; metaxalone 800 mg Oral tab 1 tab twice a day [Active]; Prozac Oral [Active]; rifampin 300 mg Oral cap 2 caps once daily [Active]; - PMHx: 18:31 Chronic pain; Fibromyalgia; Gout; Hypertension; Rheumatoid Arthritis; la1 - Immunization history:: Adult Immunizations up to date. - Social history:: Smoking status: Patient/guardian denies using tobacco. - Ebola Screening: : No symptoms or risks identified at this time. ROS: 18:59 Constitutional: Negative for fever, chills, and weight loss, Eyes: Negative for injury, pm1 pain, redness, and discharge, ENT: Negative for injury, pain, and discharge, Neck: Negative for injury, pain, and swelling, Cardiovascular: Negative for chest pain, palpitations, and edema, Respiratory: Negative for shortness of breath, cough, wheezing, and pleuritic chest pain, Abdomen/GI: Negative for abdominal pain, nausea, vomiting, diarrhea, and constipation, Back: Negative for injury and pain. 18:59 Skin: Negative for injury, rash, and discoloration, Neuro: Negative for headache, weakness, numbness, tingling, and seizure. 18:59 MS/extremity: Positive for pain, of the anterior and lateral aspect of left shoulder, Negative for deformity. Exam: 18:59 Constitutional: This is a well developed, well nourished patient who is awake, alert, pm1 and in no acute distress. Head/Face: Normocephalic, atraumatic. Neck: Trachea midline, no thyromegaly or masses palpated, and no cervical lymphadenopathy. Supple, full range of motion without nuchal rigidity, or vertebral point tenderness. No Meningismus. Chest/axilla: Normal chest wall appearance and motion. Nontender with no deformity. No lesions are appreciated. Cardiovascular: Regular rate and rhythm with a normal S1 and S2. No gallops, murmurs, or rubs. Normal PMI, no JVD. No pulse deficits. Respiratory: Lungs have equal breath sounds bilaterally, clear to auscultation and percussion. No rales, rhonchi or wheezes noted. No increased work of breathing, no retractions or nasal flaring. Abdomen/GI: Soft, non-tender, with normal bowel sounds. No distension or tympany. No guarding or rebound. No evidence of tenderness throughout. Back: No spinal tenderness. No costovertebral tenderness. Full range of motion. Skin: Warm, dry with normal turgor. Normal color with no rashes, no lesions, and no evidence of cellulitis. 18:59 Musculoskeletal/extremity: Extremities: grossly normal except: noted in the anterior and lateral aspect of left shoulder: ROM: full passive range of motion, in the left shoulder, Circulation is intact in all extremities. the left arm Sensation intact. Vital Signs: 18:33 BP 131 / 59; Pulse 71; Resp 16; Temp 97.4; Pulse Ox 98% on R/A; Weight 113.4 kg; Height la1 5 ft. 3 in. (160.02 cm); 19:15 BP 104 / 54; Pulse 73; Resp 16 S; Temp 97.7(O); Pulse Ox 96% on R/A; cc3 20:35 BP 119 / 59; Pulse 67; Resp 17 S; Pulse Ox 97% on R/A; cc3 18:33 Body Mass Index 44.29 (113.40 kg, 160.02 cm) la1 MDM: 18:49 Patient medically screened. pm1 19:55 Data reviewed: vital signs. Data interpreted: Pulse oximetry: on room air is 96 %. pm1 Interpretation: normal. Counseling: I had a detailed discussion with the patient and/or guardian regarding: the historical points, exam findings, and any diagnostic results supporting the discharge/admit diagnosis, radiology results, the need for outpatient follow up, for definitive care, a orthopedic surgeon, to return to the emergency department if symptoms worsen or persist or if there are any questions or concerns that arise at home. 01/28 18:55 Order name: Shoulder Left (2 View) XRAY; Complete Time: 20:07 pm1 01/28 18:55 Order name: Humerus Left XRAY pm1 01/28 18:55 Order name: Forearm Left XRAY pm1 01/28 19:55 Order name: Sling; Complete Time: 20:14 pm1 Administered Medications: 19:10 Drug: Flexeril 10 mg Route: PO; cc3 20:03 Follow up: Response: No adverse reaction; Pain is decreased cc3 19:10 Drug: [place] 5 mg-325 mg 1 tabs Route: PO; cc3 20:03 Follow up: Response: No adverse reaction; Pain is decreased cc3 20:20 Drug: morphine 4 mg Route: IM; Site: left gluteus; cc3 20:46 Follow up: Response: No adverse reaction; Pain is decreased cc3 Disposition: 01/28/19 20:07 Discharged to Home. Impression: Fracture of upper end of humerus - Minimally displaced fracture of greater tuberosity of proximal left humerus. - Condition is Stable. - Discharge Instructions: Humerus Fracture Treated With Immobilization, How to Use a Sling. - Medication Reconciliation Form, Thank You Letter, Antibiotic Education, Prescription Opioid Use form. - Follow up: Emergency Department; When: As needed; Reason: Worsening of condition. Follow up: Private Physician; When: 2 - 3 days; Reason: Recheck today's complaints, Continuance of care, Re-evaluation by your physician. - Problem is new. - Symptoms have improved. Addendum: 02/02/2019 02:10 Co-signature as Attending Physician, Brea Telles MD. m a2 Signatures: Dispatcher [employer] EDMS Michael Loya RN RN la1 John Fleming, FLAP CURER FLAP CURER pm1 Brea Telles MD MD ma2 Veronica Garcia cc3 Corrections: (The following items were deleted from the chart) 01/28 20:09 20:07 01/28/2019 20:07 Discharged to Home. Impression: Fracture of upper end of pm1 humerus. Condition is Stable. Forms are Medication Reconciliation Form, Thank You Letter, Antibiotic Education, Prescription Opioid Use. Follow up: Emergency Department; When: As needed; Reason: Worsening of condition. Follow up: Private Physician; When: 2 - 3 days; Reason: Recheck today's complaints, Continuance of care, Re-evaluation by your physician. Problem is new. Symptoms have improved. pm1 20:46 20:09 01/28/2019 20:07 Discharged to Home. Impression: Fracture of upper end of humerus cc3 - Minimally displaced fracture of greater tuberosity of proximal left humerus. Condition is Stable. Discharge Instructions: Humerus Fracture Treated With Immobilization. Forms are Medication Reconciliation Form, Thank You Letter, Antibiotic Education, Prescription Opioid Use. Follow up: Emergency Department; When: As needed; Reason: Worsening of condition. Follow up: Private Physician; When: 2 - 3 days; Reason: Recheck today's complaints, Continuance of care, Re-evaluation by your physician. Problem is new. Symptoms have improved. pm1
[2019-01-28] MEDS ORDERED: MORPHINE 4 MG/ML SYR ONE (20:36)
--- NOTE | 2019-01-30 10:50 | RAD REPORT ---
EXAM DESCRIPTION: RAD - Forearm Left - 01/28/2019 7:38 pm CLINICAL HISTORY: PAIN Fall, left shoulder pain COMPARISON: None FINDINGS: Left shoulder, left humerus and left forearm-multiple projections are submitted Minimally displaced fracture is seen involving the greater tuberosity of the proximal left humerus. A C joint degenerative changes are present. No additional fracture seen. No dislocation.
== END 2019-01-28 20:46 | disposition home or self-care (01) ==
LOC: ER 18:21
DX: S42.252A Displaced fracture of greater tuberosity of left humerus, initial encounter for closed fracture (principal); W01.0XXA Fall on same level from slipping, tripping and stumbling without subsequent striking against object, initial encounter; Y92.810 Car as the place of occurrence of the external cause; M10.9 Gout, unspecified; I10 Essential (primary) hypertension; M06.9 Rheumatoid arthritis, unspecified
CPT/HCPCS: 96372; 99283

== ENCOUNTER 2019-03-22 20:22 | Emergency (ER) | payer OTHER ==
--- OUTSIDE RECORDS SUMMARY | 2019-03-22 20:24 | XMS REPORT ---
:1965 Author Organization eClinicalWorks Care Team Providers Name Role Phone Jono Diamond Provider Role Unavailable Allergies, Adverse Reactions, Alerts Substance Reaction Event Type N.K.D.A. 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 Assessment Pain in joint of left shoulder M25.512 Active Assessment Closed displaced fracture of S42.252D Active greater tuberosity of left humerus with routine healing, subsequent encounter Medications Medication Code Code Instructions Start End Status Dosage System Date Date Clonazepam [facility] 51410799400 2 MG Oral Active (Schedule IV Drug) TAKE 1 TABLET BY MOUTH 3 TIMES A DAY FOR 30 DAYS Allopurinol [facility] 98203621112 100 MG Oral Active TAKE 1/2 TABLET TWICE A DAY OneTouch Verio [facility] 70210832343 - In Vitro Active USE ONCE A DAY IN MORNING Fluoxetine HCl [facility] 35331174967 40 MG Oral Active TAKE 1 CAPSULE BY MOUTH EVERY DAY Lisinopril-Hydr [facility] 98776374843 20-12.5 MG Oral Active TAKE 1 ochlorothiazide TABLET BY MOUTH EVERY MORNING Gabapentin [facility] 83087426335 800 MG Oral Active TAKE 1 TABLET BY MOUTH THREE TIMES A DAY Hydrocodone-Leno [facility] 39073720467 7.5-325 MG Oral Active (Schedule taminophen II Drug) TAKE 1 TABLET BY MOUTH 3 TIMES A DAY Latuda [facility] 19360248119 40 MG Orally Active 1 tablet Once a day with food BuPROPion HCl [facility] 55780144429 300 MG Oral Active TAKE 1 ER (XL) TABLET EVERY MORNING Mobic [facility] 43147144103 7.5 MG Orally Active 1 tablet Once a day Furosemide ND 40809772260 40 MG Oral Active TAKE 1 TABLET BY MOUTH TWICE A DAY Lamotrigine [facility] 90524686666 100 MG Oral Active TAKE 1 TABLET BY MOUTH EVERY DAY Metaxalone [facility] 14495384151 800 MG Oral Active TAKE 1 TABLET BY MOUTH EVERY DAY Results No Known Results Summary Purpose eClinicalWorks Submission
--- OUTSIDE RECORDS SUMMARY | 2019-03-22 20:24 | XMS REPORT ---
:1965 Author Organization [facility] Address [address] [place] [address] [address]. [address] [place] [id number] Care Team Providers Name Role Phone Unavailable Unavailable Unavailable Problems This patient has no known problems. Allergies, Adverse Reactions, Alerts This patient has no known allergies or adverse reactions. Medications This patient has no known medications.
[2019-03-22] MEDS ORDERED: ACETAMINOPHEN 500 MG TAB ONE (21:59)
[2019-03-22] MEDS ORDERED: ONDANSETRON 4 MG/2 ML VIAL ONE (21:59)
[2019-03-22] MEDS ORDERED: FENTANYL CITR 100 MCG/2 ML ONE (21:59)
[2019-03-22 22:00] LABS: Absolute Lymphocytes (CBC) 1.6 K/uL (0.7-4.9); Basophils % 0.8 % (0-1.3); Hematocrit 34.1 % (36.0-45.0); Lymphocytes % 16.8 % (15.3-44.8); MPV 9.8 fL (7.6-11.3); RBC Red Blood Cell Count 3.85 M/uL (3.86-4.86)
[2019-03-22 22:07] LABS: Protime INR 1.07
[2019-03-22 22:26] LABS: ALT/SGPT 20 U/L (12-78); AST/SGOT 22 U/L (15-37); Albumin 3.7 g/dL (3.4-5.0); Alkaline Phosphatase 152 U/L (45-117); BUN Blood Urea Nitrogen 19 mg/dL (7-18); Bicarbonate 25 mmol/L (21-32); Bilirubin Direct < 0.1 mg/dL (0-0.2); Bilirubin Total 0.3 mg/dL (0.2-1.0); Creatine Phosphokinase 130 U/L (26-192); Glucose Level 131 mg/dL (74-106); Lipase 229 U/L (73-393); NT PRO-BNP 1108 pg/mL (<125); Potassium 4.4 mmol/L (3.5-5.1); Sodium Level 139 mmol/L (136-145); Troponin I < 0.02 ng/mL (0.0-0.045)
[2019-03-22 23:46] LABS: Urine Blood TRACE (NEG); Urine Glucose NEGATIVE (NEG); Urine Protein NEGATIVE (NEG); Urine pH 5.5 (5.0-7.0)
[2019-03-22 23:52] LABS: Urine Bacteria 20-50 /HPF (<20); Urine Culture Reflex Order REFLEXED; Urine RBC <5 /HPF (NONE SEEN)
[2019-03-23] MEDS ORDERED: NA CHLORIDE 0.9% 100 ML IV ONE (00:08)
[2019-03-23] MEDS ORDERED: CEFTRIAXONE 1000 MG/VIAL ONE (00:08)
[2019-03-23] MEDS ORDERED: FENTANYL CITR 100 MCG/2 ML ONE (00:44)
--- NOTE | 2019-03-23 01:25 | ER ---
Nurse's Notes [facility] Name: Jackeline Weinstein Age: 53 yrs Sex: Female : 1965 Arrival Date: 03/22/2019 Time: 20:26 Bed 6 Private MD: Eber Maria E Diagnosis: acute headache;shortness of breath Presentation: 03/22 20:44 Presenting complaint: Patient states: headache since this morning. pt stated she took a ak1 pain pill. pt with left shoulder fx a month ago, pt in sling. pt c/o SOB, no resp distress noted in triage. Transition of care: patient was not received from another setting of care. Onset of symptoms was March 22, 2019. Risk Assessment: Do you want to hurt yourself or someone else? Patient reports no desire to harm self or others. Initial Sepsis Screen: Does the patient meet any 2 criteria? No. Patient's initial sepsis screen is negative. Does the patient have a suspected source of infection? No. Patient's initial sepsis screen is negative. Care prior to arrival: None. 20:44 Method Of Arrival: Ambulatory ak1 20:44 Acuity: CHELSY 3 ak1 Triage Assessment: 20:46 General: Appears in no apparent distress. comfortable, Behavior is cooperative. ak1 21:35 Respiratory: Reports shortness of breath at rest on exertion Onset: The cc3 symptoms/episode began/occurred today, the patient has mild shortness of breath. Historical: - Allergies: 20:46 Lyrica; ak1 - Home Meds: 20:46 Allopurinol 50 mg Oral 2 times per day [Active]; bupropion HCl 300 mg Oral Tb24 once ak1 daily [Active]; Buspirone Oral [Active]; furosemide 20 mg Oral tab 1 tab once daily [Active]; gabapentin 800 mg Oral tab 1 tab 3 times per day [Active]; hydrocodone-acetaminophen 5-163 mg/7.5mL(7.5mL) Oral soln [Active]; hydroxychloroquine 200 mg Oral tab 1 tab 2 times per day [Active]; indomethacin 25 mg Oral cap 1 cap daily [Active]; Klonopin Oral [Active]; lisinopril Oral [Active]; lamotrigine 100 mg Oral TbDL 1 tab once daily [Active]; lisinopril-hydrochlorothiazide 20-12.5 mg Oral tab 1 tab once daily [Active]; metaxalone 800 mg Oral tab 1 tab twice a day [Active]; Prozac Oral [Active]; rifampin 300 mg Oral cap 2 caps once daily [Active]; - PMHx: 20:46 Chronic pain; Fibromyalgia; Gout; Hypertension; Rheumatoid Arthritis; ak1 - Immunization history:: Adult Immunizations unknown. - Social history:: Smoking status: Patient/guardian denies using tobacco. - Ebola Screening: : No symptoms or risks identified at this time. - Family history:: not pertinent. - Hospitalizations: : No recent hospitalization is reported. Screenin:35 Abuse screen: Denies threats or abuse. Denies injuries from another. Nutritional cc3 screening: No deficits noted. Tuberculosis screening: No symptoms or risk factors identified. Fall Risk Ambulatory Aid- None/Bed Rest/Nurse Assist (0 pts). Gait- Normal/Bed Rest/Wheelchair (0 pts) Mental Status- Oriented to own ability (0 pts). Assessment: 21:35 General: Appears in no apparent distress. uncomfortable, Behavior is calm, cooperative, cc3 appropriate for age. Pain: Complains of pain in headache. Neuro: Level of Consciousness is awake, alert, obeys commands, Oriented to person, place, time, situation, Appropriate for age. Cardiovascular: Capillary refill < 3 seconds Patient's skin is warm and dry. Rhythm is regular. Respiratory: Airway is patent Respiratory effort is even, unlabored, Respiratory pattern is regular, symmetrical, Breath sounds are clear bilaterally. GI: Abdomen is round obese. : No signs and/or symptoms were reported regarding the genitourinary system. EENT: No signs and/or symptoms were reported regarding the EENT system. Derm: Skin is intact, is healthy with good turgor, Skin is pink, warm \T\ dry. normal. Musculoskeletal: Circulation, motion, and sensation intact. Range of motion: intact in all extremities. 22:18 Reassessment: Patient appears in no apparent distress at this time. Patient and/or cc3 family updated on plan of care and expected duration. Pain level reassessed. Patient is alert, oriented x 3, equal unlabored respirations, skin warm/dry/pink. 23:12 Reassessment: Patient appears in no apparent distress at this time. Patient and/or cc3 family updated on plan of care and expected duration. Pain level reassessed. Patient is alert, oriented x 3, equal unlabored respirations, skin warm/dry/pink. Patient denies pain at this time. Patient states feeling better. Patient states symptoms have improved. 03/23 00:20 Reassessment: Patient appears in no apparent distress at this time. Patient and/or cc3 family updated on plan of care and expected duration. Pain level reassessed. Patient is alert, oriented x 3, equal unlabored respirations, skin warm/dry/pink. 01:22 Reassessment: Patient appears in no apparent distress at this time. Patient and/or cc3 family updated on plan of care and expected duration. Pain level reassessed. Patient is alert, oriented x 3, equal unlabored respirations, skin warm/dry/pink. Patient denies pain at this time. 01:28 Reassessment: Patient appears in no apparent distress at this time. Patient and/or cc3 family updated on plan of care and expected duration. Pain level reassessed. Patient is alert, oriented x 3, equal unlabored respirations, skin warm/dry/pink. Dr. Bui discharged the patient home, no prescription given. IV cannula removed and patient left ER vitally stable by wheelchair escorted by construction services techniciankip Parks and the patient's . No valuables left in the patient's room. Patient denies pain at this time. Patient states feeling better. Patient states symptoms have improved. Vital Signs: 03/22 20:44 BP 151 / 74; Pulse 73; Resp 16; Temp 98; Pulse Ox 99% on R/A; Weight 113.4 kg (R); ak1 Height 5 ft. 3 in. (160.02 cm) (R); Pain 9/10; 21:36 BP 135 / 95; Pulse 68; Resp 18 S; Pulse Ox 100% on R/A; cc3 22:25 BP 161 / 80; Pulse 70; Resp 17 S; Pulse Ox 99% on R/A; cc3 23:43 BP 130 / 54; Pulse 67; Resp 18 S; Pulse Ox 99% on R/A; cc3 03/23 00:17 BP 137 / 58; Pulse 68; Resp 17 S; Pulse Ox 97% on R/A; cc3 01:15 BP 118 / 53; Pulse 65; Resp 18 S; Pulse Ox 98% on R/A; cc3 03/22 20:44 Body Mass Index 44.29 (113.40 kg, 160.02 cm) ak1 ED Course: 03/22 20:26 Patient arrived in ED. cl3 20:26 Eber Maria MD is Private Physician. cl3 20:45 Triage completed. ak1 20:46 Arm band placed on Patient placed in waiting room, Patient notified of wait time. ak1 21:31 Eber Bui MD is Attending Physician. wa 21:35 Veronica Garcia is Primary Nurse. cc3 21:35 Patient has correct armband on for positive identification. Placed in gown. Bed in low cc3 position. Call light in reach. Side rails up X 1. groundwater monitoring technician on. Pulse ox on. NIBP on. 21:45 Inserted saline lock: 20 gauge in right antecubital area, using aseptic technique. cc3 Blood collected. 22:03 Radiology exam delayed due to lab results not completed at this time. (BUN/Creatinine). ne 22:40 CT completed. Patient tolerated procedure well. Patient moved to CT. Patient moved back ne from CT. 23:50 Chest Pa And Lat (2 Views) In Process Unspecified. EDMS 23:54 Head Brain Wo Cont In Process Unspecified. EDMS 23:54 Chest For Pe Angio In Process Unspecified. EDMS 03/23 01:21 Andrea Severino MD is Referral Physician. ut 01:28 No provider procedures requiring assistance completed. IV discontinued, intact, cc3 bleeding controlled, No redness/swelling at site. Pressure dressing applied. Administered Medications: 03/22 22:00 Drug: fentaNYL (PF) 50 mcg {Note: RASS 0.} Route: IVP; Site: right antecubital; cc3 22:30 Follow up: Response: No adverse reaction; Pain is decreased; RASS: Alert and Calm (0) cc3 22:05 Drug: Tylenol 1000 mg Route: PO; cc3 23:00 Follow up: Response: No adverse reaction; Pain is decreased cc3 22:05 Drug: Zofran 4 mg Route: IVP; Site: right antecubital; cc3 22:30 Follow up: Response: No adverse reaction; Nausea is decreased cc3 03/23 00:15 Drug: Rocephin - (cefTRIAXone) 2 grams Route: IVPB; Infused Over: 30 mins; Site: right cc3 antecubital; 00:47 Follow up: IV Status: Completed infusion; IV Intake: 100ml tl1 00:48 Drug: fentaNYL (PF) 100 mcg Route: IVP; Infused Over: 2 mins; Site: right antecubital; tl1 01:15 Follow up: Response: No adverse reaction; Pain is decreased; RASS: Alert and Calm (0) cc3 Intake: 00:47 IV: 100ml; Total: 100ml. tl1 Outcome: 01:22 Discharge ordered by . marquis 01:28 Discharged to home via wheelchair, with family. cc3 01:28 Condition: stable 01:28 Discharge instructions given to patient, family, Instructed on discharge instructions, follow up and referral plans. Demonstrated understanding of instructions, follow-up care. 01:30 Patient left the ED. cc3 Addendum: 03/28/2019 16:53 Addendum: Culture Results: Positive urine culture. Patient was not prescribed s s antibiotics at discharge. Report given to MADDY for further evaluation and then to campaign director for follow up with patient. Phone call Attempt #1 no answer. Left Certified letter sent to listed address for patient. 17:30 Addendum: Other Patient called back stating that she was feeling better. Denies having s s S/S of UTI. States that she has follow up appt on the 6th with Dr. Maria and will mention the positive culture report and knows that the culture report is available if Dr. Maria needs copies. Signatures: Dispatcher [employer] EDMS Erna Chapman RN RN Krystle Miguel RN RN tl1 Caryl Olson RN RN ak1 French Araujo William, MD MD wa Cordel, Charlene cc3 Adarsh Foley 3
--- NOTE | 2019-03-23 01:26 | EDPHYS ---
Physician Documentation [facility] Name: Jackeline Weinstein Age: 53 yrs Sex: Female : 1965 Arrival Date: 03/22/2019 Time: 20:26 Bed 6 Private MD: Eber Maria E ED Physician Eber Bui HPI: 03/23 04:03 This 53 yrs old Female presents to ER via Ambulatory with complaints of wa Shortness Of Breath, Headache. 04:03 The patient has shortness of breath at rest. Onset: The symptoms/episode began/occurred wa today. Duration: The symptoms are continuous, and are unchanged since they started. The patient's shortness of breath has no apparent modifying factors. Associated signs and symptoms: Pertinent positives: headache, Pertinent negatives: chest pain, dizziness, fever. Severity of symptoms: At their worst the symptoms were moderate in the emergency department the symptoms are unchanged. The patient has experienced similar episodes in the past, a few times. The patient has not recently seen a physician. c/o DEL ANGEL since waking up. Also c/o feeling short of breath. denies h/o HAs. Historical: - Allergies: 03/22 20:46 Lyrica; ak1 - Home Meds: 20:46 Allopurinol 50 mg Oral 2 times per day [Active]; bupropion HCl 300 mg Oral Tb24 once ak1 daily [Active]; Buspirone Oral [Active]; furosemide 20 mg Oral tab 1 tab once daily [Active]; gabapentin 800 mg Oral tab 1 tab 3 times per day [Active]; hydrocodone-acetaminophen 5-163 mg/7.5mL(7.5mL) Oral soln [Active]; hydroxychloroquine 200 mg Oral tab 1 tab 2 times per day [Active]; indomethacin 25 mg Oral cap 1 cap daily [Active]; Klonopin Oral [Active]; lisinopril Oral [Active]; lamotrigine 100 mg Oral TbDL 1 tab once daily [Active]; lisinopril-hydrochlorothiazide 20-12.5 mg Oral tab 1 tab once daily [Active]; metaxalone 800 mg Oral tab 1 tab twice a day [Active]; Prozac Oral [Active]; rifampin 300 mg Oral cap 2 caps once daily [Active]; - PMHx: 20:46 Chronic pain; Fibromyalgia; Gout; Hypertension; Rheumatoid Arthritis; ak1 - Immunization history:: Adult Immunizations unknown. - Social history:: Smoking status: Patient/guardian denies using tobacco. - Ebola Screening: : No symptoms or risks identified at this time. - Family history:: not pertinent. - Hospitalizations: : No recent hospitalization is reported. ROS: 03/23 04:05 Constitutional: Negative for fever, chills, and weight loss, Eyes: Negative for injury, wa pain, redness, and discharge, ENT: Negative for injury, pain, and discharge, Neck: Negative for injury, pain, and swelling, Abdomen/GI: Negative for abdominal pain, nausea, vomiting, diarrhea, and constipation, Back: Negative for injury and pain, : Negative for injury, bleeding, discharge, and swelling, MS/Extremity: Negative for injury and deformity, Skin: Negative for injury, rash, and discoloration, Psych: Negative for depression, anxiety, suicide ideation, homicidal ideation, and hallucinations. Cardiovascular: Negative for chest pain, edema, orthopnea, palpitations, paroxysmal nocturnal dyspnea. Respiratory: Positive for shortness of breath, Negative for cough, dyspnea on exertion, hemoptysis, orthopnea. Neuro: Positive for headache, Negative for altered mental status, dizziness, gait disturbance. All other systems are negative. Exam: 04:06 Constitutional: This is a well developed, well nourished patient who is awake, alert, wa and in no acute distress. Head/Face: Normocephalic, atraumatic. Eyes: Pupils equal round and reactive to light, extra-ocular motions intact. Lids and lashes normal. Conjunctiva and sclera are non-icteric and not injected. Cornea within normal limits. Periorbital areas with no swelling, redness, or edema. ENT: Nares patent. No nasal discharge, no septal abnormalities noted. Tympanic membranes are normal and external auditory canals are clear. Oropharynx with no redness, swelling, or masses, exudates, or evidence of obstruction, uvula midline. Mucous membranes moist. Neck: Trachea midline, no thyromegaly or masses palpated, and no cervical lymphadenopathy. Supple, full range of motion without nuchal rigidity, or vertebral point tenderness. No Meningismus. Chest/axilla: Normal chest wall appearance and motion. Nontender with no deformity. No lesions are appreciated. Abdomen/GI: Soft, non-tender, with normal bowel sounds. No distension or tympany. No guarding or rebound. No evidence of tenderness throughout. Back: No spinal tenderness. No costovertebral tenderness. Full range of motion. Skin: Warm, dry with normal turgor. Normal color with no rashes, no lesions, and no evidence of cellulitis. MS/ Extremity: Pulses equal, no cyanosis. Neurovascular intact. Full, normal range of motion. Psych: Awake, alert, with orientation to person, place and time. Behavior, mood, and affect are within normal limits. 04:06 Cardiovascular: Rate: normal, Rhythm: regular, Pulses: no pulse deficits are appreciated, Heart sounds: normal, Edema: is not appreciated, JVD: is not appreciated. 04:06 Respiratory: the patient does not display signs of respiratory distress, Respirations: normal, Breath sounds: are clear throughout, Respiratory rate: nml 04:06 Neuro: Orientation: is normal, Cranial nerves: grossly normal, Motor: is normal. Vital Signs: 03/22 20:44 BP 151 / 74; Pulse 73; Resp 16; Temp 98; Pulse Ox 99% on R/A; Weight 113.4 kg (R); ak1 Height 5 ft. 3 in. (160.02 cm) (R); Pain 9/10; 21:36 BP 135 / 95; Pulse 68; Resp 18 S; Pulse Ox 100% on R/A; cc3 22:25 BP 161 / 80; Pulse 70; Resp 17 S; Pulse Ox 99% on R/A; cc3 23:43 BP 130 / 54; Pulse 67; Resp 18 S; Pulse Ox 99% on R/A; cc3 03/23 00:17 BP 137 / 58; Pulse 68; Resp 17 S; Pulse Ox 97% on R/A; cc3 01:15 BP 118 / 53; Pulse 65; Resp 18 S; Pulse Ox 98% on R/A; cc3 03/22 20:44 Body Mass Index 44.29 (113.40 kg, 160.02 cm) ak1 MDM: 03/22 21:31 Patient medically screened. ak 03/23 04:09 Differential diagnosis: Anemia Bronchitis CHF exacerbation, Chronic Obstructive wa Pulmonary Disease pneumonia, Pneumothorax pulmonary edema, Pulmonary Embolism Unstable Angina r/o ICH. Data reviewed: vital signs, nurses notes. Test interpretation: by ED physician or midlevel provider: labs noted for UTI. head CT noted negative fo acute process. CT chest: no PE. . Response to treatment: the patient's symptoms have markedly improved after treatment. ED course: pt improved in ED with interventions including IV pain med treatment. 04:11 Test interpretation: by ED physician or midlevel provider: EKG: Interp by mo: HR 77. wa sinus. nml axis. no obvious STEMI or acute dysrrhythmia. 03/22 21:47 Order name: BMP 03/22 21:47 Order name: CBC with Diff 03/22 21:47 Order name: CPK 03/22 21:47 Order name: Hepatic Function 03/22 21:47 Order name: Lipase 03/22 21:47 Order name: NT PRO-BNP 03/22 21:47 Order name: PT-INR 03/22 21:47 Order name: Troponin (emerg Dept Use Only) 03/22 21:48 Order name: Urine Microscopic Only 03/22 22:02 Order name: CBC with Automated Diff; Complete Time: 23:56 EDMS 03/22 22:22 Order name: Protime (+INR); Complete Time: 23:56 EDMS 03/22 22:26 Order name: Basic Metabolic Panel; Complete Time: 23:56 EDMS 03/22 22:26 Order name: Liver (Hepatic) Function; Complete Time: 23:56 EDMS 03/22 22:26 Order name: Creatine Phosphokinase; Complete Time: 23:56 EDMS 03/22 21:47 Order name: XRAY Chest Pa And Lat (2 Views) ak 03/22 21:48 Order name: CT Head Brain wo Cont ak 03/22 21:49 Order name: CT Chest For PE Angio 03/22 22:26 Order name: Troponin I; Complete Time: 23:56 EDMS 03/22 22:26 Order name: NT PRO-BNP; Complete Time: 23:56 EDMS 03/22 22:26 Order name: Lipase; Complete Time: 23:56 EDSD 03/22 23:28 Order name: Urine Dipstick--Ancillary (enter results) cm6 03/22 23:39 Order name: Head Brain Wo Cont EDSD 03/22 23:39 Order name: Chest Pa And Lat (2 Views) EDSD 03/22 23:40 Order name: Chest For Pe Angio EDSD 03/22 23:48 Order name: Urine Dipstick-Ancillary; Complete Time: 23:56 [facility] 03/22 23:53 Order name: Urine Microscopic Only EDSD 03/23 00:33 Order name: Urine Culture [facility] 03/22 21:47 Order name: EKG; Complete Time: 22:31 ak 03/22 21:47 Order name: Cardiac monitoring; Complete Time: 21:48 ak 03/22 21:47 Order name: EKG - Nurse/Tech; Complete Time: 21:48 ak 03/22 21:47 Order name: IV Saline Lock; Complete Time: 21:48 ak 03/22 21:47 Order name: Labs collected and sent; Complete Time: 21:48 ak 03/22 21:47 Order name: O2 Per Protocol; Complete Time: 21:48 ak 03/22 21:47 Order name: O2 Sat Monitoring; Complete Time: 21:48 ak 03/22 21:48 Order name: Urine Dipstick-Ancillary (obtain specimen); Complete Time: 23:52 ak Administered Medications: 03/22 22:00 Drug: fentaNYL (PF) 50 mcg {Note: RASS 0.} Route: IVP; Site: right antecubital; cc3 22:30 Follow up: Response: No adverse reaction; Pain is decreased; RASS: Alert and Calm (0) cc3 22:05 Drug: Tylenol 1000 mg Route: PO; cc3 23:00 Follow up: Response: No adverse reaction; Pain is decreased cc3 22:05 Drug: Zofran 4 mg Route: IVP; Site: right antecubital; cc3 22:30 Follow up: Response: No adverse reaction; Nausea is decreased 3 03/23 00:15 Drug: Rocephin - (cefTRIAXone) 2 grams Route: IVPB; Infused Over: 30 mins; Site: right cc3 antecubital; 00:47 Follow up: IV Status: Completed infusion; IV Intake: 100ml tl1 00:48 Drug: fentaNYL (PF) 100 mcg Route: IVP; Infused Over: 2 mins; Site: right antecubital; tl1 01:15 Follow up: Response: No adverse reaction; Pain is decreased; RASS: Alert and Calm (0) cc3 Disposition: 03/23/19 01:22 Discharged to Home. Impression: acute headache, shortness of breath. - Condition is Stable. - Discharge Instructions: Shortness of Breath, [id number], General Headache Without Cause, [id number]. - Medication Reconciliation Form, Thank You Letter, Antibiotic Education, Prescription Opioid Use form. - Follow up: Andrea Severino MD; When: 1 - 2 days; Reason: Recheck today's complaints. - Problem is new. - Symptoms have improved. - Notes: return for any worsening concerns such a pain and or shortness of breath Signatures: Dispatcher [employer] EDMS Krystle Miguel RN RN tl1 Caryl Olson RN RN ak1 Eber Bui MD MD wa Cordel, Charlene cc3 Corrections: (The following items were deleted from the chart) 01:30 01:22 03/23/2019 01:22 Discharged to Home. Impression: acute headache; shortness of cc3 breath. Condition is Stable. Forms are Medication Reconciliation Form, Thank You Letter, Antibiotic Education, Prescription Opioid Use. Follow up: Andrea Severino; When: 1 - 2 days; Reason: Recheck today's complaints. Problem is new. Symptoms have improved. wa
--- NOTE | 2019-03-23 07:31 | EKG ---
Test Date: 2019-03-22 Test Time: 21:36:58 Material Preparation Worker: GARY MEASUREMENT RESULTS: Intervals: Rate: 77 NV: 264 QRSD: 76 QT: 444 QTc: 502 [place]: P: 35 NV: 264 QRS: 37 T: 28 INTERPRETIVE STATEMENTS: Sinus rhythm with 1st degree AV block with fusion complexes Right atrial enlargement Prolonged QT Abnormal ECG Compared to ECG 03/22/2019 21:36:19 Fusion complex(es) now present First degree AV block now present Atrial abnormality now present Prolonged QT interval now present Uncertain supraventricular rhythm no longer present Ventricular premature complex(es) no longer present Electronically Signed On 03-23-19 07:31:14 CDT by Trenton Wilson
--- NOTE | 2019-03-23 08:16 | RAD REPORT ---
EXAM DESCRIPTION: RAD - Chest Pa And Lat (2 Views) - 03/22/2019 10:19 pm CLINICAL HISTORY: COUGH Chest pain. COMPARISON: Chest Single View dated 09/02/2018; Chest Single View dated 08/05/2018; Chest Pa And Lat (2 Views) dated 03/13/2018; CHEST PA AND LAT 2 VIEW dated 08/06/2008 FINDINGS: The lungs are clear. The heart is mildly enlarged in size. No displaced fractures. Mild th oracic dextroscoliosis. IMPRESSION: Mild cardiomegaly.
--- NOTE | 2019-03-23 10:53 | RAD REPORT ---
EXAM DESCRIPTION: CT Angiography Chest With Intravenous Contrast CLINICAL HISTORY: The patient is 53 years old and is Female; SOB TECHNIQUE: Axial computed tomographic angiography images of the chest with intravenous contrast usin g pulmonary embolism protocol. Sagittal and coronal reformatted images were created and reviewed. This CT exam was performed using one or more of the following dose reduction techniques: automated exposure control, adjustment of the mA and/or kV according to patient size, and/or use of iterative reconstruction technique. MIP reconstructed images were created and reviewed. COMPARISON: No relevant prior studies available. FINDINGS: ARTIFACTS: The exam is suboptimal secondary to motion artifact. LIMITATIONS: Suboptimal study secondary to artifact related to patient body habitus. PULMONARY ARTERIES: There are no obvious filling defects identified within the pulmonary arterie s to suggest pulmonary embolism. AORTA: No acute findings. No thoracic aortic aneurysm. LUNGS: Unremarkable. No mass. No consolidation. PLEURAL SPACE: Unremarkable. No significant effusion. No pneumothorax. HEART: Unremarkable. No cardiomegaly. No significant pericardial effusion. No evidence of RV dysfunction. BONES/JOINTS: Multilevel degenerative changes spine is present. No acute fracture. No disloc ation. SOFT TISSUES: Unremarkable. LYMPH NODES: Unremarkable. No enlarged lymph nodes. IMPRESSION: No evidence of pulmonary embolism. Electronically signed by: Vicenta Lange MD 03/22/2019 10:52 PM CDT Due to temporary technical issues with the PACS/Fluency reporting system, reports are being signed by the in house radiologist as a courtesy to ensure prompt reporting. The interpreting radiologist is f ully responsible for the content of the report.
--- NOTE | 2019-03-23 10:54 | RAD REPORT ---
EXAM DESCRIPTION: CT Head Without Intravenous Contrast CLINICAL HISTORY: The patient is 53 years old and is Female; HEADACHE TECHNIQUE: Axial computed tomography images of the head/brain without intravenous contrast. Sagitt al and coronal reformatted images were created and reviewed. This CT exam was performed using one o r more of the following dose reduction techniques: automated exposure control, adjustment of the mA and/or kV according to patient size, and/or use of iterative reconstruction technique. COMPARISON: No relevant prior studies available. FINDINGS: BRAIN: Unremarkable. The barraza-white matter differentiation is preserved . No hemorrhag e. No significant white matter disease. No edema. No extra-axial fluid collections. VENTRICLES: Unremarkable. No ventriculomegaly. BONES/JOINTS: No acute fracture. SOFT TISSUES: Unremarkable. SINUSES: Unremarkable as visualized. No acute sinusitis. MASTOID AIR CELLS: Unremarkable as visualized. No mastoid effusion. IMPRESSION: No acute intracranial findings. Electronically signed by: Vicenta Lange MD 03/22/2019 10:40 PM CDT Due to temporary technical issues with the PACS/Fluency reporting system, reports are being signed by the in house radiologist as a courtesy to ensure prompt reporting. The interpreting radiologist is f ully responsible for the content of the report.
== END 2019-03-23 01:30 | disposition home or self-care (01) ==
LOC: ER 20:22
DX: R51 Headache (principal); I10 Essential (primary) hypertension; M79.7 Fibromyalgia; M06.9 Rheumatoid arthritis, unspecified; G89.29 Other chronic pain; M10.9 Gout, unspecified; Z88.8 Allergy status to other drugs, medicaments and biological substances
CPT/HCPCS: 96365; 93005; 87088; 85025; 87086; 80048; 36415; 82550; 85610; 80076; 87077; 87186; 84484; 83690; 83880; 70450; 71275; 71046; 96375; 99285; Q9967; J3010 ×2; J2405; 81003; 81015

== ENCOUNTER 2019-11-09 21:35 | Emergency (ER) | payer OTHER ==
--- OUTSIDE RECORDS SUMMARY | 2019-11-09 21:38 | XMS REPORT ---
:1965 Author Organization eClinicalWorks Care Team Providers Name Role Phone Jono Diamond Provider Role Unavailable Allergies, Adverse Reactions, Alerts Substance Reaction Event Type N.K.D.A. Info Not Available Non Drug Allergy Problems Problem Type Condition Code Onset Dates Condition Statu s Problem Primary osteoarthritis of right M17.11 Active knee Problem Primary osteoarthritis of left M17.12 Active knee Assessment Closed displaced fracture of S42.252D Active greater tuberosity of left humerus with routine healing, subsequent encounter Assessment Contusion of right shoulder, S40.011D Active subsequent encounter Assessment Pain in joint of right shoulder M25.511 Active Assessment Pain in joint of left shoulder M25.512 Active Medications Medication Code Code Instructions Start End Status Dosage System Date Date Clonazepam [facility] 25419106155 2 MG Oral Active (Schedu le IV Drug) TAKE 1 TABLET BY MOUTH 3 TIMES A DAY FOR 30 DAYS Metaxalone ND 14678361820 800 MG Oral Active TAKE 1 TABLET BY MOUTH EVERY DAY Gabapentin ND 78106656235 800 MG Oral Active TAKE 1 TABLET BY MOUTH THREE TIMES A DAY Lamotrigine ND 49123840356 100 MG Oral Active TAKE 1 TABLET BY MOUTH EVERY DAY Triamcinolone ND 32889480500 0.1 % External Active APPLY 1-2 Acetonide GRAMS TO AFFECTED AREA(S) UP TO 3-4 TIMES DAILY NEEDED, AVOID FACE. USE 2 WEEKS ON, 1 WEEK OFF LONG DIRECTED BY PHYSICIAN Hydrocodone-Acet [facility] 16320038198 7.5-325 MG Oral Act chaparro (Schedule aminophen II Drug) TAKE 1 TABLET BY MOUTH 3 TIMES A DAY Allopurinol ND 60560169256 100 MG Oral Active TAKE 1/2 TABLET TWICE A DAY Metformin HCl ND 90839334603 500 MG Oral Active TA KE 1 TABLET BY MOUTH TWICE A DAY WITH MEALS Leflunomide ND 91906126614 20 MG Oral Active TAKE 1 TABLET BY MOUTH EVERY DAY Lisinopril-Casco [facility] 71664899790 20-12.5 MG Oral Act chaparro TAKE 1 chlorothiazide TABLET BY MOUTH EVERY MORNING Mobic [facility] 62832206961 7.5 MG Orally Active 1 tabl et Once a day Azithromycin [facility] 81839223490 250 MG Oral Active LUIS E 2 TABLETS BY MOUTH TODAY, THEN TAKE 1 TABLET DAILY FOR 4 DAYS BuPROPion HCl ER [facility] 32554234968 300 MG Oral Active TAKE 1 (XL) TABLET EVERY MORNING Fluoxetine HCl [facility] 46828434720 40 MG Oral Active TA KE 1 CAPSULE BY MOUTH EVERY DAY Timolol Maleate [facility] 33246885394 0.5 % Active INST ILL 1 Ophthalmic DROP INTO BOTH EYES EVERY MORNING OneTouch Verio [facility] 52977890490 - In Vitro Active US E ONCE A DAY IN MORNING Latuda [facility] 66130601034 40 MG Orally Active 1 table t Once a day with food Furosemide [facility] 42527086318 40 MG Oral Active TAKE 1 TABLET BY MOUTH TWICE A DAY Pantoprazole [facility] 97526087064 40 MG Oral Active TAKE 1 Sodium TABLET BY MOUTH DAILY 30 MINUTES BEFORE BREAKFAST (ON AN EMPTY STOMACH) Results No Known Results Summary Purpose eClinicalWorks Submission
--- OUTSIDE RECORDS SUMMARY | 2019-11-09 21:38 | XMS REPORT ---
:1965 Author Organization [employer]ClinicalWorks Care Team Providers Name Role Phone Gretel Russ Provider Role Unavailable Allergies No Known Allergies Problems Problem Type Condition Code Onset Dates Condition Statu s Problem Primary osteoarthritis of right knee M17.11 Active Problem Primary osteoarthritis of left knee M17.12 Active Medications No Known Medications Results No Known Results Summary Purpose eClinicalWorks Submission
--- OUTSIDE RECORDS SUMMARY | 2019-11-09 21:38 | XMS REPORT ---
:1965 Author Organization [facility] t Address [address] [place] [address] Care Team Providers Name Role Phone Unavailable Unavailable Unavailable Problems Condition Condition Condition Status Onset Resolution Last Treatin g Comments Name Details Category Date Date Treatment Clinician Date Primary Primary Diagnosis Active osteoarthri osteoarthri tis of tis of right knee right knee Primary Primary Diagnosis Active osteoarthri osteoarthri tis of left tis of left knee knee Pain in Pain in Diagnosis Active joint of joint of left knee left knee Pain in Pain in Diagnosis Active joint of joint of right knee right knee Allergies, Adverse Reactions, Alerts This patient has no known allergies or adverse reactions. Medications Ordered Filled Start Stop Current Ordering Indication Dosage Frequency Signature Comments Components Medication Medication Date Date Medication? Clinician (SIG) Name Name Metaxalone Metaxalone Yes Jono TAKE 1 Diamond TABLET BY MOUTH EVERY DAY Furosemide Furosemide Yes Jono TAKE 1 Diamond TABLET BY MOUTH TWICE A DAY Lisinopril- Lisinopril- Yes Jono TAKE 1 Hydrochloro Hydrochloro Diamond TABLET B Y thiazide thiazide MOUTH EVERY MORNING Hydrocodone Hydrocodone Yes Jono (Sched ule -Acetaminop -Acetaminop Diamond II Drug) hen hen TAKE 1 TABLET BY MOUTH 3 TIMES A DAY Fluoxetine Fluoxetine Yes Jono TAKE 1 HCl HCl Diamond CAPSULE BY MOUTH EVERY DAY OneTouch OneTouch Yes Jono USE ONCE A Verio Verio Diamond DAY IN MORNING Allopurinol Allopurinol Yes Jono TAKE 1 /2 Diamond TABLET TWICE A DAY Lamotrigine Lamotrigine Yes Jono TAKE 1 Diamond TABLET BY MOUTH EVERY DAY Gabapentin Gabapentin Yes Jono TAKE 1 Diamond TABLET BY MOUTH THREE TIMES A DAY BuPROPion BuPROPion Yes Jono TAKE 1 HCl ER (XL) HCl ER (XL) Diamond TABLET EVERY MORNING Mobic Mobic Yes Jono 1 tablet Diamond Latuda Latuda Yes Jono 1 tablet Diamond with food Clonazepam Clonazepam Yes Jono (Schedul e Diamond IV Drug) TAKE 1 TABLET BY MOUTH 3 TIMES A DAY FOR 30 DAYS Triamcinolo Triamcinolo Yes Jono APPLY 1-2 ne ne Diamond GRAMS TO Acetonide Acetonide AFFECTED AREA(S) UP TO 3-4 TIMES DAILY NEEDED, AVOID FACE. USE 2 WEEKS ON, 1 WEEK OFF LONG DIRECTED BY PHYSICIAN Metformin Metformin Yes Jono TAKE 1 HCl HCl Diamond TABLET BY MOUTH TWICE A DAY WITH MEALS Leflunomide Leflunomide Yes Jono TAKE 1 Diamond TABLET BY MOUTH EVERY DAY Azithromyci Azithromyci Yes Jono TAKE 2 n n Diamond TABLETS BY MOUTH TODAY, THEN TAKE 1 TABLET DAILY FOR 4 DAYS Timolol Timolol Yes Jono INSTILL 1 Maleate Maleate Diamond DROP INTO BOTH EYES EVERY MORNING Pantoprazol Pantoprazol Yes Jono TAKE 1 e Sodium e Sodium Diamond TABLET BY MOUTH DAILY 30 MINUTES BEFORE BREAKFAST (ON AN EMPTY STOMACH) Encounters Start End Encounter Admission Attending Care Care Encounter Date/Time Date/Time Type Type Clinicians Facility Department ID 2019-10-12 2019-10-12 [facility] [id number] 10:00:00 10:00:00 [facility] 2019-09-07 2019-09-07 [id number] 11:39:00 11:39:00 [facility] 2019-09-07 2019-09-07 [facility] [id number] 11:38:00 11:38:00 [facility] 2019-09-05 2019-09-05 [facility] [id number] 13:30:00 13:30:00 [facility] 2019-06-28 2019-06-28 [id number] 15:10:00 15:10:00 [facility] 2019-06-19 2019-06-19 [facility] [id number] 15:03:00 15:03:00 [facility] 2019-06-12 2019-06-12 [facility] [id number] 11:10:00 11:10:00 [facility] 2019-06-12 2019-06-12 [facility] [id number] 10:30:00 10:30:00 [facility] 2019-05-04 2019-05-04 [id number] 15:30:00 15:30:00 [facility] 2019-04-26 2019-04-26 [id number] 10:00:00 10:00:00 [facility] 2019-04-19 2019-04-19 [id number] 08:26:00 08:26:00 [facility] 2019-04-04 2019-04-04 [id number] 10:43:00 10:43:00 [facility] 2019-04-03 2019-04-03 [facility] [id number] 13:25:00 13:25:00 [facility] 2019-03-06 2019-03-06 [id number] 14:00:00 14:00:00 [facility] 2019-02-02 2019-02-02 [id number] 13:30:00 13:30:00 [facility] 2018-10-27 2018-10-27 [id number] 09:30:00 09:30:00 [facility] 2018-06-28 2018-06-28 [id number] 11:00:00 11:00:00 [facility] 2018-06-28 2018-06-28 [id number] 11:00:00 11:00:00 [facility] 2018-04-28 2018-04-28 [id number] 09:00:00 09:00:00 [facility] 2018-04-28 2018-04-28 [id number] 09:00:00 09:00:00 [facility] 2018-03-01 2018-03-01 [id number] 14:30:00 14:30:00 [facility] 2018-03-01 2018-03-01 [facility] [id number] 14:30:00 14:30:00 [facility]
--- OUTSIDE RECORDS SUMMARY | 2019-11-09 21:38 | XMS REPORT | Summary of Care ---
:1965 Author Organization [facility] Address [address] [place] [address] Care Team Providers Name Role Phone Eber Maria Primary Care Provider Reason for Visit Reason Comments Rx Concern/Question Encounter Details Date Type Department Care Team Description 09/01/2019 Telephone [facility] Adelita Pham MD Rx Concern/Question [address] [place] [address] [facility] [phone] [place] [address] Allergies Active Allergy Reactions Severity Noted Date Comments Pregabalin Swelling 05/24/2018 documented as of this encounter (statuses as of 09/01/2019) Medications Medication Sig Dispensed Refills Start Date End Date Status furosemide 40 mg/5 mL (8 Take 20 mg by 0 Active mg/mL) solution mouth daily. lamoTRIgine 100 mg Take 100 mg by 0 Active tablet mouth daily. FLUoxetine 40 mg capsule Take 40 mg by 0 Active mouth daily. allopurinol 100 mg Take 100 mg by 0 Active tablet mouth daily. metaxalone 800 mg tablet Take 800 mg by 0 Active mouth 4 (four) times daily. gabapentin 800 mg tablet Take 800 mg by 0 Active mouth 3 (three) times daily. latanoprost 0.005 % Place 1 Drop in 0 Active ophthalmic drops both eyes every evening. buPROPion XL 300 mg 24 Take 300 mg by 0 Active hr tablet mouth daily. lisinopril-hydrochloroth Take 1 tablet by 0 Active iazide 20-12.5 mg per mouth daily. tablet clonazePAM 2 mg tablet Take 2 mg by 0 Active mouth daily. HYDROcodone-acetaminophe Take 1 tablet by 0 Active n 7.5-325 mg per tablet mouth 3 (three) times daily. Fluocinolone-Hydroq.-Jeremy Apply to 30 g 1 06/23/2018 Active tinoin (TRI-JOHN) area(s) at 0.01-4-0.05 % bedtime. creamIndications: Melasma amoxicillin 500 mg TAKE ONE CAPSULE 0 06/14/2018 Active capsule BY MOUTH 4 TIMES A DAY UNTIL ALL TAKEN , TAKE WITH FOOD AND DRINK PLENTY OF WATER furosemide 20 mg tablet TAKE 1 TABLET BY 2 8 Active MOUTH EVERY MORNING LATUDA 40 mg tablet TAKE 1 TABLET BY 2 06/05/2018 Active MOUTH IN THE EVENING WITH A FULL MEAL VITAMIN C 500 mg tablet Take 500 mg by 08/28/2018 Active mouth daily. SAPHRIS 10 mg sublinguql TAKE 1 TABLET BY 2 08/06/19 19 Active tablet MOUTH EVERYDAY AT BEDTIME ferrous sulfate 325 mg Take 325 mg by 08/28/2018 Active (65 mg iron) EC tablet mouth daily. indomethacin 25 mg TAKE 1 CAPSULE 2 07/30/2018 Active capsule BY MOUTH TWICE A DAY WITH FOOD OR MILK metFORMIN 500 mg tablet TAKE 1 TABLET BY 1 9 Active MOUTH TWICE A DAY WITH MEALS ondansetron 4 mg tablet TAKE 1 TABLET BY 0 9 Active MOUTH EVERY 12 HOURS NEEDED pantoprazole 40 mg EC Take 40 mg by 0 09/02/2018 Active tablet mouth daily. predniSONE 20 mg tablet TAKE 1 TABLET BY 0 9 Active MOUTH TWICE A DAY FOR 5 DAYS promethazine-codeine TAKE BY MOUTH 1 0 06/29/2018 Active 6.25-10 mg/5 mL syrup TEASPOONFUL EVERY 6 HOURS NEEDED FOR 7 DAYS traZODONE 50 mg tablet TAKE 1 TABLET BY 5 07/27/2018 Active MOUTH EVERY DAY AT BEDTIME NEEDED zolpidem 10 mg tablet TAKE 1 TABLET BY 08/30/2018 Active MOUTH AT BEDTIME NEEDED hydroxychloroquine 200 Take 1.5 tablets 135 tablet 1 9 Active mg tabletIndications: by mouth daily 0 Sjogren's syndrome, with for 90 days. unspecified organ involvement, Polyarthralgia meloxicam 7.5 mg Take 1 tablet 90 tablet 0 07/07/2019 Active tabletIndications: daily as needed Sjogren's syndrome, with for joint pain unspecified organ involvement, Polyarthralgia ergocalciferol, vitamin Take 1 capsule 12 capsule 0 07/13/2019 Active d2, 50,000 unit by mouth weekly 0 capsuleIndications: for 90 days. Hypovitaminosis D hydrocortisone 2.5 % Apply to 454 g 2 07/27/2019 Active creamIndications: Other affected area(s) atopic dermatitis 2 (two) times daily. Apply to itchy areas on arms, legs, trunk twice daily as needed timolol 0.5 % ophthalmic Place 1 Drop in 5 mL 3 0 Active solution both eyes every morning. documented as of this encounter (statuses as of 09/01/2019) Active Problems Patient Care Coordination Note Diabetes Plan of Care 02/24/2013 My Diabetes Goals are the following: A1c (Measure of average glucose over t he 3 months) less than 7.0 Blood pressure- less than 130/80 Cholesterol- LDL ( bad cholesterol )- less than 100 (If I have heart disease less than 70) Home Glucose value goals o Before Breakfast- 80 to 126 o 2 hours after meals- 120-160 My Diabetes Care Plan includes the follo wing: Check and record my blood glucose at [facility] once a day, alternating between checking before breakfast and checking 2 hours after my largest meal Check and record blood pressure at [facility] once a week Exercise at least 30 minutes a day 5 d ays a week. This can be in three 10 minute intervals Continue to adhere to my diabetic diet (if you have questions about this, ask) Contact the office if: o Glucose values are not in the goal ran ge three times in one week o I have feelings my glucose is too low (feeling very faint, dizzy, or fuzzy headed or feeling very jittery, sweaty and hungry) and/or my glucose values are under 60 more than twice a week o I am so sick that I cannot eat properl y, to find out whether I need to adjust my medicines o My blood pressure is over my goal more than three times Problem Noted Date Morbid obesity with body mass index of 40.0-49.9 06/28 Long-term use of Plaquenil 06/22/2018 Iron deficiency anemia 05/24/2018 Skin depigmentation 05/24/2018 Positive QuantiFERON-TB Gold test 04/20/2018 Intermediate TPMT enzyme activity: 23.4 04/18/2018 Hypovitaminosis D: 14(03/2018) 04/15/2018 Immunization counseling 04/12/2018 senior care (current) use of non-steroidal anti-inflamma tories (nsaid) 04/12/2018 Idiopathic gout of multiple sites 04/12/2018 ESR raised 04/12/2018 At risk for bone density loss 04/12/2018 Diabetes mellitus type 2 without retinopathy 3 Glaucoma suspect 09/02/2012 Dry eyes 09/02/2012 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 Insomnia 08/02/2012 Fibromyalgia 05/06/2012 Chronic low back pain 05/06/2012 Shortness of breath 05/06/2012 Other depression 05/06/2012 Positive PPD 05/06/2012 Essential hypertension, benign 05/06/2012 Rotator cuff tear, right 05/25/2011 Arthropathy of shoulder region 03/31/2011 Overview: ICD10 Diagnosis Term Employment Educational Coord Utility Myalgia and myositis 03/27/2011 Overview: ICD10 Diagnosis Term Employment Educational Coord Utility Other specified crystal arthropathies, shoulder region 03/27/2011 Sjogren's syndrome: sicca, + SSA 03/13/2011 Polyarthralgia: RF 30, CCP 21 03/13/2011 Elevated rheumatoid factor 03/13/2011 Lumbago 03/13/2011 documented as of this encounter (statuses as of 09/01/2019) Resolved Problems Problem Noted Date Resolved Date Positive ALIA (antinuclear antibody) 1:320 04/12/2018 05/24/2018 documented as of this encounter (statuses as of 09/01/2019) Immunizations Name Administration Dates Next Due Influenza Virus Vaccine 04/27/2019, 05/03/2012 documented as of this encounter Social History Tobacco Use Types Packs/Day Years Used Date Former Smoker Cigarettes Quit: 03/13/19 96 Smokeless Tobacco: Never Used Alcohol Use Drinks/Week oz/Week Comments No Sex Assigned at Date Recorded Not on file Job Start Date Occupation Industry Not on file Not on file Not on file Travel History Travel Start Travel End No recent travel history available. documented as of this encounter Last Filed Vital Signs Not on filedocumented in this encounter Plan of Treatment Date Type Specialty Care Team Description 10/06/2019 Office Visit Rheumatology Surendra Robin i, MD [address] [place] [address]. [place] [address] [phone] 10/26/2019 Office Visit Ophthalmology Adelita Pham MD [address] [address] [phone] 12/28/2019 Office Visit Dermatology Marisa Asher MD [address] [place] [address] [phone] 07/01/2020 Office Visit Obstetrics & Gynecology Amy Ibarra, [address] [place] [address] [phone] Health Maintenance Due Date Last Done Comments PNEUMOCOCCAL 0-64 YEARS COMBINED 09/30/1969 SERIES (1 of 1 - PPSV23) DTaP,Tdap,and Td Vaccines (1 - 09/30/1974 Tdap) COLONOSCOPY 09/30/2013 Zoster Recombinant Vaccine 09/30/2013 (SHINGRIX) (1 of 2) FOOT EXAM 03/24/2014 03/24/2013 HgA1C 05/26/2015 11/23/2014, 03/22/2014, 09/27/2013, Additional history exists LDL-C 11/24/2015 11/23/2014, 03/22/2014, 09/27/2013, Additional history exists URINE MICROALBUMIN 11/24/2015 11/23/2014, 09/27/2013, 08/16/2012 Breast Cancer Screening 12/14/2017 12/14/2016 (MAMMOGRAM) CREATININE (SERUM) 02/01/2019 02/01/2018, 11/23/2014, 03/22/2014, Additional history exists EYE EXAM 07/27/2020 07/27/2019, 05/31/2018, 01/25/2014, Additional history exists HEPATITIS C (HCV) SCREEN Completed 03/13/2011 INFLUENZA VACCINE Completed 04/27/2019, 05/03/2012 documented as of this encounter Results Not on filedocumented in this encounter Insurance Payer Benefit Plan Subscriber ID Effective Phone Address Typ e / Group Dates [facility] xxxxxxxxx 2014-Olga Medic aid HEALTH[employer] COMM STAR PLUS nt PLAN - MANAGED MEDICAID [place] MEDICAID OF xxxxxxxxx 2017-Pre [phone] Med icaid [place] sent [id number] [place] [address] [facility] TOTAL [facility] TOTAL [id number] 2018-Olga Hindsio n VISION VISION nt documented as of this encounter Advance Directives Type Date Recorded Patient Social Director Explanati on Advance Directives and Living Will Power of Construction Supervisor
--- OUTSIDE RECORDS SUMMARY | 2019-11-09 21:38 | XMS REPORT ---
:1965 Author Organization eClinicalWorks Care Team Providers Name Role Phone Jono Diamond Provider Role Unavailable Allergies No Known Allergies Problems Problem Type Condition Code Onset Dates Condition Statu s Problem Primary osteoarthritis of right knee M17.11 Active Problem Primary osteoarthritis of left knee M17.12 Active Medications No Known Medications Results No Known Results Summary Purpose eClinicalWorks Submission
--- OUTSIDE RECORDS SUMMARY | 2019-11-09 21:39 | XMS REPORT | Summary of Care ---
:1965 Author Organization [address] [address] Care Team Providers Name Role Phone Eber Maria Primary Care Provider Reason for Visit Reason Comments Medication Assistance instructions Encounter Details Date Type Department Care Team Description 08/08/2019 Telephone [facility] Marisa Asher MD Medication Assistance Dermatology- [address] [place], [place] [address]d (instructions) [facility] [phone] [place] [address] Drive, 5th [place] [address] Allergies Active Allergy Reactions Severity Noted Date Comments Pregabalin Swelling 05/24/2018 documented as of this encounter (statuses as of 08/08/2019) Medications Medication Sig Dispensed Refills Start Date [...] 500 mg tablet Take 500 mg by 5 08/28/2018 Active mouth daily. SAPHRIS 10 mg [...] 500 mg tablet TAKE 1 TABLET BY 9 Active MOUTH TWICE A DAY WITH [...] 10 mg tablet TAKE 1 TABLET BY 1 08/30/2018 Active MOUTH AT BEDTIME NEEDED hydroxychloroquine [...] as of this encounter (statuses as of 08/08/2019) Active Problems Patient Care Coordination Note Diabetes [...] Check and record my blood glucose at [facility] once a day, alternating between checking before breakfast and checking 2 hours after my largest meal Check and record blood pressure at [facility] once a week Exercise at least 30 [...] Hypovitaminosis D: 14(03/2018) 04/15/2018 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 of non-steroidal anti-inflamma tories (nsaid) [...] shoulder region 03/31/2011 Overview: ICD10 Diagnosis Term Solid Waste Analyst Utility Myalgia and myositis 03/27/2011 Overview: ICD10 Diagnosis Term Solid Waste Analyst Utility Other specified crystal arthropathies, shoulder region 03/27/2011 Sjogren's syndrome: sicca, + SSA 03/13/2011 Polyarthralgia: RF 30, CCP 21 03/13/2011 Elevated rheumatoid factor 03/13/2011 Lumbago 03/13/2011 documented as of this encounter (statuses as of 08/08/2019) Resolved Problems Problem Noted Date Resolved Date Positive ALIA (antinuclear antibody) 1:320 04/12/2018 05/24/2018 documented as of this encounter (statuses as of 08/08/2019) Immunizations Name Administration Dates Next Due Influenza [...] Office Visit Rheumatology Surendra Robin i, MD [address] [place] [address]. [place], [place] [phone] 10/26/2019 Office Visit Ophthalmology Adelita Pham MD 2660 [facility] 8 [place], [place] [address] 12/28/2019 Office Visit Dermatology Marisa Asher MD [address] [place] [address] [phone] 07/01/2020 Office Visit Obstetrics & Gynecology Amy Ibarra PA-C [address] [place] [address] 208 [place], [place] [phone] Health Maintenance Due Date Last [...] Phone Address Typ e / Group Dates [facility] xxxxxxxxx 2014-[place]ga Medic aid HEALTHCARE COMM STAR PLUS nt PLAN - MANAGED MEDICAID [facility] MEDICAID OF xxxxxxxxx 2017-Pre [phone] [address] Med icaid [place] sent [phone] [id number] [place] [address] [facility] TOTAL [facility] TOTAL [id number] 2018-Olga Hindsio n VISION VISION nt documented as of this encounter Advance Directives Type Date Recorded Patient Can Carrier Explanati on Advance Directives and Living Will Power of Story Writer
--- OUTSIDE RECORDS SUMMARY | 2019-11-09 21:40 | XMS REPORT | Summary of Care ---
:1965 Author Organization [facility] [place] [facility] Address [address] [place] [address] Care Team Providers Name Role Phone Eber Maria Primary Care Provider Reason for Visit Reason Comments Assessment Encounter Details Date Type Department Care Team Description 08/08/2019 Telephone [facility] [place] Adelita Pham MD Assessment Center-[address] [place] [address] [place] [address] [place] [address] [phone] Allergies Active Allergy Reactions Severity Noted Date [...] Check and record my blood glucose at 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) use of non-steroidal anti-inflamma tories [...] shoulder region 03/31/2011 Overview: ICD10 Diagnosis Term Glove Cleaner Utility Myalgia and myositis 03/27/2011 Overview: ICD10 Diagnosis Term Glove Cleaner Utility Other specified crystal arthropathies, shoulder region 03/27/2011 Sjogren's syndrome: sicca, + SSA 03/13/2011 Polyarthralgia: RF 30, CCP 21 03/13/2011 Elevated rheumatoid factor 03/13/2011 Lumbago 03/13/2011 documented as of this encounter (statuses as of 08/08/2019) Resolved Problems Problem Noted Date Resolved Date Positive LAIA (antinuclear antibody) 1:320 04/12/2018 05/24/2018 documented as [...] Office Visit Rheumatology Surendra Robin i, MD [address] [place] [address]. [place], [place] [phone] 10/26/2019 Office Visit Ophthalmology Adelita Pham MD [address] [id number] 12/28/2019 Office Visit Dermatology Marisa Asher MD [address] [place] [address] [phone] 07/01/2020 Office Visit Obstetrics & Gynecology Amy Ibarra PA-C [address] [place] [phone] Health Maintenance Due Date Last [...] Address Typ e / Group Dates [facility] [place] xxxxxxxxx 2014-Olga Medic aid HEALTHCARE COMM STAR PLUS nt PLAN - MANAGED MEDICAID [facility] MEDICAID OF xxxxxxxxx 2017-Dominic [phone] [address] Med icaid [place] sent [phone] [id number] [place] [address] [facility] TOTAL [facility] TOTAL [id number] 2018-Olga Rich n VISION VISION nt documented as of this encounter Advance Directives Type Date Recorded 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
--- OUTSIDE RECORDS SUMMARY | 2019-11-09 21:40 | XMS REPORT | Summary of Care ---
:1965 Author Organization [facility] Address [address] [place] [address] Care Team Providers Name Role Phone Eber Maria Primary Care Provider Reason for Visit Reason Comments Cataract Dry Eye GLAUCOMA (Routine) Status Reason Specialty Diagnoses / Procedures Referred By Elizabeth solano To Contact Contact Closed Ophthalmology Diagnoses Sjogren's syndrome, with unspecified organ involvement Marley Shah Procedures CONSULT/REFERRAL OPHTHALMOLOGY MD [place] [address] [place] [address] 2 [place] [address] Encounter Details Date Type Department Care Team Description 07/27/[address] [facility] Eye Adelita Pham, Glaucoma suspect of both eyes (Primary Dx); [facility] Long-term use of Plaquenil; [address] [place] [address]. [address] [place] [address] Senile incipient cataract of both eyes; [facility] Dry eye [address] [place], [place] [address] Allergies Active Allergy Reactions Severity Noted Date Comments Pregabalin Swelling 05/24/2018 documented as of this encounter (statuses as of 08/31/2019) Medications Medication Sig Dispensed Refills Start End Status Date Date furosemide 40 mg/5 mL Take 20 mg by 0 Active (8 mg/mL) solution mouth daily. lamoTRIgine 100 mg Take 100 mg by 0 Active tablet mouth daily. FLUoxetine 40 mg Take 40 mg by 0 Active capsule mouth daily. allopurinol 100 mg Take 100 mg by 0 Active tablet mouth daily. metaxalone 800 mg Take 800 mg by 0 Active tablet mouth 4 (four) times daily. gabapentin 800 mg Take 800 mg by 0 Active tablet mouth 3 (three) times daily. latanoprost 0.005 % Place 1 Drop 0 Active ophthalmic drops in both eyes every evening. buPROPion XL 300 mg 24 Take 300 mg by 0 Active hr tablet mouth daily. lisinopril-hydrochloro Take 1 tablet 0 Active thiazide 20-12.5 mg by mouth per tablet daily. clonazePAM 2 mg tablet Take 2 mg by 0 Active mouth daily. HYDROcodone-acetaminop Take 1 tablet 0 Active hen 7.5-325 mg per by mouth 3 tablet (three) times daily. Fluocinolone-Hydroq.-T Apply to 30 g 1 06/23/20 Active retinoin (TRI-JOHN) area(s) at 18 0.01-4-0.05 % bedtime. creamIndications: Melasma amoxicillin 500 mg TAKE ONE 0 06/14/20 A ctive capsule CAPSULE BY 18 MOUTH 4 TIMES A DAY UNTIL ALL TAKEN , TAKE WITH FOOD AND DRINK PLENTY OF WATER furosemide 20 mg TAKE 1 TABLET 2 06/21/20 Active tablet BY MOUTH EVERY 18 MORNING LATUDA 40 mg tablet TAKE 1 TABLET 2 06/05/20 Active BY MOUTH IN 18 THE EVENING WITH A FULL MEAL VITAMIN C 500 mg Take 500 mg by 5 08/28/19 Active tablet mouth daily. 19 SAPHRIS 10 mg TAKE 1 TABLET 2 08/06/19 Ac tive sublinguql tablet BY MOUTH 19 EVERYDAY AT BEDTIME ferrous sulfate 325 mg Take 325 mg by 5 08/28/19 Active (65 mg iron) EC tablet mouth daily. 19 indomethacin 25 mg TAKE 1 CAPSULE 2 07/30/19 Active capsule BY MOUTH TWICE 19 A DAY WITH FOOD OR MILK metFORMIN 500 mg TAKE 1 TABLET 1 08/23/19 Active tablet BY MOUTH TWICE 19 A DAY WITH MEALS ondansetron 4 mg TAKE 1 TABLET 0 09/02/19 Active tablet BY MOUTH EVERY 19 12 HOURS NEEDED pantoprazole 40 mg EC Take 40 mg by 0 09/02/19 Active tablet mouth daily. 19 predniSONE 20 mg TAKE 1 TABLET 0 07/27/19 Active tablet BY MOUTH TWICE 19 A DAY FOR 5 DAYS promethazine-codeine TAKE BY MOUTH 0 06/29/20 Active 6.25-10 mg/5 mL syrup 1 TEASPOONFUL 18 EVERY 6 HOURS NEEDED FOR 7 DAYS traZODONE 50 mg tablet TAKE 1 TABLET 5 07/27/19 Active BY MOUTH EVERY 19 DAY AT BEDTIME NEEDED zolpidem 10 mg tablet TAKE 1 TABLET 1 08/30/19 Active BY MOUTH AT 19 BEDTIME NEEDED hydroxychloroquine 200 Take 1.5 135 tablet 1 07/07/20 Active mg tabletIndications: tablets by 19 020 Sjogren's syndrome, mouth daily with unspecified organ for 90 days. involvement, Polyarthralgia meloxicam 7.5 mg Take 1 tablet 90 tablet 0 07/07/20 Active tabletIndications: daily as 19 Sjogren's syndrome, needed for with unspecified organ joint pain involvement, Polyarthralgia ergocalciferol, Take 1 capsule 12 capsule 0 07/13/20 Active vitamin d2, 50,000 by mouth 020 unit weekly for 90 capsuleIndications: days. Hypovitaminosis D hydrocortisone 2.5 % Apply to 454 g 2 07/27/19 Active creamIndications: affected 20 Other atopic area(s) 2 dermatitis (two) times daily. Apply to itchy areas on arms, legs, trunk twice daily as needed timolol 0.5 % Place 1 Drop 0 Dis continued ophthalmic solution in both eyes 020 (Reorder) every morning. documented as of this encounter (statuses as of 08/31/2019) Active Problems Patient Care Coordination Note Diabetes [...] Check and record my blood glucose at [facility] once a day, alternating between checking before [...] Hypovitaminosis D: 14(03/2018) 04/15/2018 Immunization counseling 04/12/2018 ocean transportation intermediary (current) use of non-steroidal anti-inflamma tories (nsaid) [...] shoulder region 03/31/2011 Overview: ICD10 Diagnosis Term Runstitching Machine Operator Utility Myalgia and myositis 03/27/2011 Overview: ICD10 Diagnosis Term Runstitching Machine Operator Utility Other specified crystal arthropathies, shoulder region 03/27/2011 Sjogren's syndrome: sicca, + SSA 03/13/2011 Polyarthralgia: RF 30, CCP 21 03/13/2011 Elevated rheumatoid factor 03/13/2011 Lumbago 03/13/2011 documented as of this encounter (statuses as of 08/31/2019) Resolved Problems Problem Noted Date Resolved Date Positive ALIA (antinuclear antibody) 1:320 04/12/2018 05/24/2018 documented as of this encounter (statuses as of 08/31/2019) Immunizations Name Administration Dates Next Due Influenza [...] Signs Not on filedocumented in this encounter Progress Notes Adelita Pham MD - 07/27/2019 1:45 PM CST Ophthalmology Clinic Note 07/27/2019 14:36 CC: Chief Complaint Patient presents with Cataract Dry Eye GLAUCOMA HPI: Jackeline Weinstein is a 53 year old female presents for plaquenil sreening. She states she has not noted any distortion of vision but does not intermittent blurring while reading OU over the past few months. Has been taking glaucoma meds without problems. PMH: Past Medical History: Diagnosis Date Abnormal uterine bleeding Anemia Anxiety Arthritis Autoimmune disorder Blood dyscrasia Chronic low back pain Depression DM (diabetes mellitus) Fibromyalgia Glaucoma Gout Hypertension Sjogren syndrome Ro and ALIA 1:320 Tuberculosis skin test positive / chest xray neg ROS: Review of systems done by data communications technician during this encounter. No changes noted. Meds: Current Outpatient Medications: timolol 0.5 % ophthalmic solution, Place 1 Drop in both eyes every morning., Disp: , Rfl: hydroxychloroquine 200 mg tablet, Take 1.5 tablets by mouth daily for 90 days., Disp: 135 tablet, Rfl: 1 latanoprost 0.005 % ophthalmic drops, Place 1 Drop in both eyes every evening., Disp: , Rfl: hydrocortisone 2.5 % cream, Apply to affected area(s) 2 (two) times daily. Apply to itchy areas on arms, legs, trunk twice daily as needed, Disp: 454 g, Rfl: 2 ergocalciferol, vitamin d2, 50,000 unit capsule, Take 1 capsule by mouth weekly for 90 days., Disp: 12 capsule, Rfl: 0 meloxicam 7.5 mg tablet, Take 1 tablet daily as needed for joint pain, Disp: 90 tablet, Rfl: 0 ferrous sulfate 325 mg (65 mg iron) EC tablet, Take 325 mg by mouth daily., Disp: , Rfl: 5 indomethacin 25 mg capsule, TAKE 1 CAPSULE BY MOUTH TWICE A DAY WITH FOOD OR MILK, Disp: , Rfl:2 metFORMIN 500 mg tablet, TAKE 1 TABLET BY MOUTH TWICE A DAY WITH MEALS, Disp: , Rfl: 1 ondansetron 4 mg tablet, TAKE 1 TABLET BY MOUTH EVERY 12 HOURS NEEDED, Disp: , Rfl: 0 pantoprazole 40 mg EC tablet, Take 40 mg by mouth daily., Disp: , Rfl: 0 predniSONE 20 mg tablet, TAKE 1 TABLET BY MOUTH TWICE A DAY FOR 5 DAYS, Disp: , Rfl: 0 promethazine-codeine 6.25-10 mg/5 mL syrup, TAKE BY MOUTH 1 TEASPOONFUL EVERY 6 HOURS NEEDEDFOR 7 DAYS, Disp: , Rfl: 0 SAPHRIS 10 mg sublinguql tablet, TAKE 1 TABLET BY MOUTH EVERYDAY AT BEDTIME, Disp: , Rfl: 2 traZODONE 50 mg tablet, TAKE 1 TABLET BY MOUTH EVERY DAY AT BEDTIME NEEDED, Disp: , Rfl: 5 VITAMIN C 500 mg tablet, Take 500 mg by mouth daily., Disp: , Rfl: 5 zolpidem 10 mg tablet, TAKE 1 TABLET BY MOUTH AT BEDTIME NEEDED, Disp: , Rfl: 1 amoxicillin 500 mg capsule, TAKE ONE CAPSULE BY MOUTH 4 TIMES A DAY UNTIL ALL TAKEN , TAKE WITHFOOD AND DRINK PLENTY OF WATER, Disp: , Rfl: 0 furosemide 20 mg tablet, TAKE 1 TABLET BY MOUTH EVERY MORNING, Disp: , Rfl: 2 LATUDA 40 mg tablet, TAKE 1 TABLET BY MOUTH IN THE EVENING WITH A FULL MEAL, Disp: , Rfl: 2 Fluocinolone-Hydroq.-Tretinoin (TRI-JOHN) 0.01-4-0.05 % cream, Apply to area(s) at bedtime., Disp: 30 g, Rfl: 1 allopurinol 100 mg tablet, Take 100 mg by mouth daily., Disp: , Rfl: buPROPion XL 300 mg 24 hr tablet, Take 300 mg by mouth daily., Disp: , Rfl: clonazePAM 2 mg tablet, Take 2 mg by mouth daily., Disp: , Rfl: FLUoxetine 40 mg capsule, Take 40 mg by mouth daily., Disp: , Rfl: furosemide 40 mg/5 mL (8 mg/mL) solution, Take 20 mg by mouth daily., Disp: , Rfl: gabapentin 800 mg tablet, Take 800 mg by mouth 3 (three) times daily., Disp: , Rfl: HYDROcodone-acetaminophen 7.5-325 mg per tablet, Take 1 tablet by mouth 3 (three) times daily.,Disp: , Rfl: lamoTRIgine 100 mg tablet, Take 100 mg by mouth daily., Disp: , Rfl: lisinopril-hydrochlorothiazide 20-12.5 mg per tablet, Take 1 tablet by mouth daily., Disp: , Rfl: metaxalone 800 mg tablet, Take 800 mg by mouth 4 (four) times daily., Disp: , Rfl: 1. Glaucoma suspect of both eyes OU SPECTRALIS OCT MACULA, BOTH EYES OU SPECTRALIS OCT OPTIC NERVE, BOTH EYES 2. Long-term use of Plaquenil 3. Senile incipient cataract of both eyes 4. Dry eye Assessment/Plan: 53 year old female seen by ophthalmology for Cataract; Dry Eye; and GLAUCOMA 1. Glaucoma suspect of both eyes - no known family history - DFE (07/27/2019): 0.45 OU - OCT (07/27/2019): yellow nasally OD, yellow ST/SN/N/IT OS - follows with outside provider - continue latanoprost qhs OU and timolol qam OU 2. Long-term use of Plaquenil - patient has been on plaquenil x 2 months - dose: 300 mg/day or 60 mg/kg/day - [place] body weight 116 lb - cumulative dose: 3600 mg - OCT macula 07/27/2019 : wnl OU 3. Senile incipient cataract of both eyes - early, not visually significant - will monitor for now - UV protection 4. Dry eye - recommend ATs 3-4x/day, Preservative free if more often - likely related to Sjogren's Follow up 3 months, HVF 24-2 Kera Faster Adelita Pham MD Department of Ophthalmology and Visual Sciences hkath-Anna Bonilla - 07/27/2019 1:45 PM CSTSpectralis OCT disc and mac OU Anna Max 07/27/2019 2:11 PM LING FLOOR SUPERVISOR documented in this encounter Plan of Treatment Date Type Specialty Care Team Description 10/06/2019 Office Visit Rheumatology Surendra Robin i, MD 301 [facility]. [place], [place] [phone] 10/26/2019 Office Visit Ophthalmology Adelita Pham MD [address] [address] [phone] 12/28/2019 Office Visit Dermatology Marisa Asher MD [address] [place] [address] [phone] 07/01/2020 Office Visit Obstetrics & Gynecology Amy Ibarra, ALEXIS-C [address] [place] [phone] Health Maintenance Due Date Last [...] 04/27/2019, 05/03/2012 documented as of this encounter Procedures Procedure Name Priority Date/Time Associated Diagnosis Comme nts OU SPECTRALIS OCT Routine 07/27/2019 Glaucoma suspect of Res ults for this OPTIC NERVE, BOTH EYES both eyes proce dure are in the results section . documented in this encounter Results OU SPECTRALIS OCT OPTIC NERVE, BOTH EYES (07/27/2019) Impressions Performed At yellow nasally OD, yellow ST/SN/N/IT OS documented in this encounter Visit Diagnoses Diagnosis Glaucoma suspect of both eyes - Primary Preglaucoma, unspecified Long-term use of Plaquenil Senile incipient cataract of both eyes Dry eye documented in this encounter Insurance Payer Benefit Plan / Subscriber ID Effective Dates Phone Addre ss Type Group C TOTAL VISION [facility] TOTAL VISION [id number] 2018-Present Vision documented as of this encounter Advance Directives Type Date Recorded Patient Senior Licensing Manager Explanati on Advance Directives and Living Will Power of Education Reporter
--- OUTSIDE RECORDS SUMMARY | 2019-11-09 21:41 | XMS REPORT | Summary of Care ---
:1965 Author Organization [facility] Address [address] [place] [address] Care Team Providers Name Role Phone Eber Maria Primary Care Provider Reason for Visit Reason Comments Assessment Rx Concern/Question Medication Assistance Encounter Details Date Type Department Care Team Description 09/01/2019 Telephone [facility] Yamilet Robin, Salvador t; Rx Rheumatology-[place] Concern/Question; [facility] [address] [place] [address]. Medication 2660 [facility] [place], [place] [phone] Allergies Active Allergy Reactions Severity Noted Date Comments Pregabalin Swelling 05/24/2018 documented as of this encounter (statuses as of 09/04/2019) Medications Medication Sig Dispensed Refills Start Date [...] 325 mg Take 325 mg by 5 08/28/2018 Active (65 mg iron) EC tablet [...] as of this encounter (statuses as of 09/04/2019) Active Problems Patient Care Coordination Note Diabetes [...] record my blood glucose at [facility] once a day, alternating between checking before breakfast and checking 2 hours after my largest meal Check and record blood pressure at [facility] once a week Exercise at [...] Hypovitaminosis D: 14(03/2018) 04/15/2018 Immunization counseling 04/12/2018 [facility] (current) use of non-steroidal anti-inflamma tories (nsaid) [...] shoulder region 03/31/2011 Overview: ICD10 Diagnosis Term Drill Punch Operator Utility Myalgia and myositis 03/27/2011 Overview: ICD10 Diagnosis Term Drill Punch Operator Utility Other specified crystal arthropathies, shoulder region 03/27/2011 Sjogren's syndrome: sicca, + SSA 03/13/2011 Polyarthralgia: RF 30, CCP 21 03/13/2011 Elevated rheumatoid factor 03/13/2011 Lumbago 03/13/2011 documented as of this encounter (statuses as of 09/04/2019) Resolved Problems Problem Noted Date Resolved Date Positive ALIA (antinuclear antibody) 1:320 04/12/2018 05/24/2018 documented as of this encounter (statuses as of 09/04/2019) Immunizations Name Administration Dates Next Due Influenza [...] Office Visit Rheumatology Surendra Robin i, MD [address] [place] [address]. [place], [place] [phone] 10/26/2019 Office Visit Ophthalmology Adelita Pham MD [address] [address] [phone] 12/28/2019 Office Visit Dermatology Marisa Asher MD [address] [place] [address] [phone] 07/01/2020 Office Visit Obstetrics & Gynecology Amy Ibarra, [address] [place] [phone] Health Maintenance Due Date Last [...] Address Typ e / Group Dates [facility] xxxxxxxxx 2014-Presadelso Medic aid HEALTHCARE COMM STAR PLUS nt PLAN - MANAGED MEDICAID [facility] MEDICAID OF xxxxxxxxx 2017-Pre [phone] [address] Med icaid [place] sent [phone] [id number] [place] [address] [facility] TOTAL [facility] TOTAL [id number] 2018-Olga Visio n VISION VISION nt documented as of this encounter Advance Directives Type Date Recorded Patient Channel Man Explanati on Advance Directives and Living Will Power of Bacteriology Technician
--- OUTSIDE RECORDS SUMMARY | 2019-11-09 21:41 | XMS REPORT | Summary of Care ---
:1965 Author Organization [facility] Address [address] [place] [address] Care Team Providers Name Role Phone Eber Maria Primary Care Provider Reason for Visit Reason Comments Rx Concern/Question Encounter Details Date Type Department Care Team Description 08/31/2019 Telephone [facility] Eye Adelita Pham MD Rx Concern/Question [address] [place] [address] [facility] [phone] [place] [address] Allergies Active Allergy Reactions Severity Noted Date Comments Pregabalin Swelling 05/24/2018 documented as of this encounter (statuses as of 08/31/2019) Medications Medication Sig Dispensed Refills Start Date [...] Check and record my blood glucose at [facility] once a day, alternating between checking [...] Hypovitaminosis D: 14(03/2018) 04/15/2018 Immunization counseling 04/12/2018 [facility] (current) use of non-steroidal anti-inflamma tories (nsaid) [...] shoulder region 03/31/2011 Overview: ICD10 Diagnosis Term Molding Line Operator Utility Myalgia and myositis 03/27/2011 Overview: ICD10 Diagnosis Term Molding Line Operator Utility Other specified crystal arthropathies, shoulder [...] Office Visit Rheumatology Surendra Robin i, MD [address] [place] [address]. [place] [address] [phone] 10/26/2019 Office Visit Ophthalmology Adelita Pham MD [address] [address] [phone] 12/28/2019 Office Visit Dermatology Marisa Asher MD [address] [place] [address] [phone] 07/01/2020 Office Visit Obstetrics & Gynecology Amy Ibarra, [address] [place] [phone] Health Maintenance Due Date Last [...] Phone Address Typ e / Group Dates [facility] xxxxxxxxx 2014-Olga Medic aid HEALTHCARE COMM STAR PLUS nt PLAN - MANAGED MEDICAID [facility] MEDICAID OF xxxxxxxxx 2017-Pre [phone] [address] Med icaid [place] sent [id number] [place] [address] [facility] TOTAL [facility] TOTAL [id number] 2018-Olga Hindsio n VISION VISION nt documented as of this encounter Advance Directives Type Date Recorded Patient Vocational Rehabilitation Teacher Explanati on Advance Directives and Living Will Power of Terminal Computer Operator
--- OUTSIDE RECORDS SUMMARY | 2019-11-09 21:42 | XMS REPORT | Summary of Care ---
:1965 Author Organization [facility] Address [address] [place] [address] Care Team Providers Name Role Phone Eber Maria Primary Care Provider Reason for Visit Reason Comments Rx Concern/Question Encounter Details Date Type Department Care Team Description 09/11/2019 Telephone [facility] Eye Adelita Pham MD Rx Concern/Question [address] [place] [address] [facility] [phone] [place] [address] Allergies Active Allergy Reactions Severity Noted Date Comments Pregabalin Swelling 05/24/2018 documented as of this encounter (statuses as of 09/11/2019) Medications Medication Sig Dispensed Refills Start Date [...] as of this encounter (statuses as of 09/11/2019) Active Problems Patient Care Coordination Note Diabetes [...] Hypovitaminosis D: 14(03/2018) 04/15/2018 Immunization counseling 04/12/2018 detention (current) use of non-steroidal anti-inflamma tories (nsaid) [...] shoulder region 03/31/2011 Overview: ICD10 Diagnosis Term Network Account Manager Utility Myalgia and myositis 03/27/2011 Overview: ICD10 Diagnosis Term Network Account Manager Utility Other specified crystal arthropathies, shoulder region 03/27/2011 Sjogren's syndrome: sicca, + SSA 03/13/2011 Polyarthralgia: RF 30, CCP 21 03/13/2011 Elevated rheumatoid factor 03/13/2011 Lumbago 03/13/2011 documented as of this encounter (statuses as of 09/11/2019) Resolved Problems Problem Noted Date Resolved Date Positive ALIA (antinuclear antibody) 1:320 04/12/2018 05/24/2018 documented as of this encounter (statuses as of 09/11/2019) Immunizations Name Administration Dates Next Due Influenza [...] Office Visit Rheumatology Surendra Robin i, MD [address] [place] [address]. [place] [address] [phone] 10/26/2019 Office Visit Ophthalmology Adelita Pham MD [address] [address] [phone] 12/28/2019 Office Visit Dermatology Marisa Asher MD [address] [place] [address] [phone] 07/01/2020 Office Visit Obstetrics & Gynecology Amy Ibarra, [address] [place] [address] [phone] Health Maintenance Due Date Last [...] Phone Address Typ e / Group Dates [facility] xxxxxxxxx 2014-Olga Medic aid [employer] COMM STAR PLUS nt PLAN - MANAGED MEDICAID [facility] MEDICAID OF xxxxxxxxx 2017-Pre [phone] Med icaid [place] sent [id number] [place] [address] [facility] TOTAL [id number] 2018-Olga Hindsio n VISION VISION nt documented as of this encounter Advance Directives Type Date Recorded Patient Rental Car Porter Explanati on Advance Directives and Living Will Power of Primer Inspector
--- OUTSIDE RECORDS SUMMARY | 2019-11-09 21:42 | XMS REPORT ---
:1965 Author Organization [employer] Care Team Providers Name Role Phone DiamondJono Provider Role Unavailable Allergies, Adverse Reactions, Alerts [...] Start End Status Dosage System Date Date OneTouch Verio [facility] 81182734622 - In Vitro Active US E ONCE A DAY IN MORNING Hydrocodone-Acet [facility] 79138475155 7.5-325 MG Oral Act chaparro (Schedule aminophen II Drug) TAKE 1 TABLET BY MOUTH 3 TIMES A DAY Clonazepam [facility] 27041125415 2 MG Oral Active (Schedu le IV Drug) TAKE 1 TABLET BY MOUTH 3 TIMES A DAY FOR 30 DAYS Triamcinolone [facility] 62063379340 0.1 % External Active APPLY 1-2 Acetonide GRAMS TO AFFECTED AREA(S) UP TO 3-4 TIMES DAILY NEEDED, AVOID FACE. USE 2 WEEKS ON, 1 WEEK OFF LONG DIRECTED BY PHYSICIAN Furosemide ND [id number] 40 MG Oral Active TAKE 1 TABLET BY MOUTH TWICE A DAY Lamotrigine [facility] [id number] 100 MG Oral Active TAKE 1 TABLET BY MOUTH EVERY DAY Azithromycin [facility] 26074746395 250 MG Oral Active LUIS E 2 TABLETS BY MOUTH TODAY, THEN TAKE 1 TABLET DAILY FOR 4 DAYS Fluoxetine HCl [facility] 53773041566 40 MG Oral Active TA KE 1 CAPSULE BY MOUTH EVERY DAY Pantoprazole [facility] 96225906743 40 MG Oral Active TAKE 1 Sodium TABLET BY MOUTH DAILY 30 MINUTES BEFORE BREAKFAST (ON AN EMPTY STOMACH) Timolol Maleate [facility] 94200793724 0.5 % Active INST ILL 1 Ophthalmic DROP INTO BOTH EYES EVERY MORNING Gabapentin [facility] 09331013701 800 MG Oral Active TAKE 1 TABLET BY MOUTH THREE TIMES A DAY Metaxalone [facility] 44124963760 800 MG Oral Active TAKE 1 TABLET BY MOUTH EVERY DAY Lisinopril-[place] [facility] 82821591762 20-12.5 MG Oral Act chaparro TAKE 1 chlorothiazide TABLET BY MOUTH EVERY MORNING Allopurinol [facility] 85109566134 100 MG Oral Active TAKE 1/2 TABLET TWICE A DAY Mobic [facility] 49336758206 7.5 MG Orally Active 1 tabl et Once a day Leflunomide [facility] 82619444614 20 MG Oral Active TAKE 1 TABLET BY MOUTH EVERY DAY BuPROPion HCl ER [facility] 82598725791 300 MG Oral Active TAKE 1 (XL) TABLET EVERY MORNING Metformin HCl [facility] 85782247177 500 MG Oral Active TA KE 1 TABLET BY MOUTH TWICE A DAY WITH MEALS Latuda [facility] 69628420107 40 MG Orally Active 1 table t Once a day with food Results No Known Results Summary Purpose eClinicalWorks Submission
--- OUTSIDE RECORDS SUMMARY | 2019-11-09 21:43 | XMS REPORT | Summary of Care ---
:1965 Author Organization [facility] Address [address] [place] [address] Care Team Providers Name Role Phone Eber Maria Primary Care Provider Reason for Visit Reason Comments Assessment Encounter Details Date Type Department Care Team Description 09/21/2019 Telephone [facility] Internal Yamilet Robin MD Assessment Medicine [address] [place] [address]. Rheumatology[facility] [place] [address] Primary Care Pavilio n [phone] [facility] [address], [address] [phone] (F ax) [address] [place] [address] Allergies Active Allergy Reactions Severity Noted Date Comments Pregabalin Swelling 05/24/2018 documented as of this encounter (statuses as of 09/26/2019) Medications Medication Sig Dispensed Refills Start Date [...] to 30 g 1 06/23/2018 Active tinoin (TRI-JHON) area(s) at 0.01-4-0.05 % bedtime. 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) use of non-steroidal anti-inflamma tories (nsaid) [...] shoulder region 03/31/2011 Overview: ICD10 Diagnosis Term Sports Fitness And Wellness Director Utility Myalgia and myositis 03/27/2011 Overview: ICD10 Diagnosis Term Sports Fitness And Wellness Director Utility Other specified crystal arthropathies, shoulder region 03/27/2011 Sjogren's syndrome: sicca, + SSA 03/13/2011 Polyarthralgia: RF 30, CCP 21 03/13/2011 Elevated rheumatoid factor 03/13/2011 Lumbago 03/13/2011 documented as of this encounter (statuses as of 09/26/2019) Resolved Problems Problem Noted Date Resolved Date Positive ALIA (antinuclear antibody) 1:320 04/12/2018 05/24/2018 documented as of this encounter (statuses as of 09/26/2019) Immunizations Name Administration Dates Next Due Influenza [...] Treatment Date Type Specialty Care Team Description 09/28/2019 Office Visit Rheumatology Surendra Robin i, MD [address] [place] [address]. [place], [place] [phone] 10/26/2019 Office Visit Ophthalmology Adelita Pham MD [address] [facility] [address] [place], [place] [phone] 12/28/2019 Office Visit Dermatology Marisa Asher MD [address] [place] [phone] 07/01/2020 Office Visit Obstetrics & Gynecology Amy Ibarra PA-C [address] [place] [address] [phone] Health Maintenance Due Date Last [...] Address Typ e / Group Dates [facility] xxxxxxxxx 2014-Olga Medic aid HEALTH[employer]ARE COMM STAR PLUS nt PLAN - MANAGED MEDICAID [facility] MEDICAID OF xxxxxxxxx 2017-Pre [phone] Med icaid [place] sent [phone] [id number] [place] [address] [facility] TOTAL [facility] TOTAL [id number] 2018-Olga Hindsio n VISION VISION nt documented as of this encounter Advance Directives Type Date Recorded 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
--- OUTSIDE RECORDS SUMMARY | 2019-11-09 21:43 | XMS REPORT | Summary of Care ---
:1965 Author Organization [facility] Address [address] [place] [address] Care Team Providers Name Role Phone Eber Maria Primary Care Provider Reason for Referral (Routine) Status Reason Specialty Diagnoses / Referred By Referred To Procedures Contact Contact New Request Endocrinology Diagnoses Sjogren's syndrome, with unspecified organ involvement Polyarthralgia Homero Diabetes & Procedures CONSULT/REFERRAL ENDOCRINOLOGY Preferred Location: [facility] Jameson Sanon MD [id number] [place] [address] Reason for Visit Reason Comments Follow-up Encounter Details Date Type Department Care Team Description 09/28/2019 Office Visit [facility] Jameson Valentin MD [address] [place], [place] [id number] [place] [address] Sjogren's syndrome, with unspecified org an involvement (Primary Dx); Internal Medicine Yamilet Porter MD [address] [place] [address]. [place] [address] Polyarthralgia: RF 30, CCP 21; Rheumatology[facility] Fibromya lgia; ton Positive anti-CCP test; Primary Care ESR raised; [facility] Fatigue, unspecified type; [address] , Other de pression; [address] Hypovitaminosis D: 14(03/2018 ); [place], [place] Positive ALIA ( antinuclear antibody); [id number] Rheumatoid factor positive; [phone] Hypocomplemente andrew; History of gout Allergies Active Allergy Reactions Severity Noted Date Comments Pregabalin Swelling 05/24/2018 documented as of this encounter (statuses as of 09/28/2019) Medications Medication Sig Dispensed Refills Start End [...] 0 Active thiazide 20-12.5 mg by mouth daily. per tablet clonazePAM 2 mg tablet Take 2 mg by 0 Active mouth daily. HYDROcodone-acetaminop Take 1 tablet 0 Active hen 7.5-325 mg per by mouth 3 tablet (three) times daily. Fluocinolone-Hydroq.-T Apply to 30 g 1 Active retinoin (TRI-JOHN) area(s) at 8 0.01-4-0.05 % bedtime. creamIndications: Melasma LATUDA 40 mg tablet TAKE 1 TABLET 2 Active BY MOUTH IN THE 8 EVENING WITH A FULL MEAL VITAMIN C 500 mg Take 500 mg by 5 Active tablet mouth daily. 9 SAPHRIS 10 mg TAKE 1 TABLET 2 Ac tive sublinguql tablet BY MOUTH 9 EVERYDAY AT BEDTIME ferrous sulfate 325 mg Take 325 mg by 5 Active (65 mg iron) EC tablet mouth daily. 9 metFORMIN 500 mg TAKE 1 TABLET 1 Active tablet BY MOUTH TWICE 9 A DAY WITH MEALS ondansetron 4 mg TAKE 1 TABLET 0 Active tablet BY MOUTH EVERY 9 12 HOURS NEEDED pantoprazole 40 mg EC Take 40 mg by 0 Active tablet mouth daily. 9 promethazine-codeine TAKE BY MOUTH 1 0 Active 6.25-10 mg/5 mL syrup TEASPOONFUL 8 EVERY 6 HOURS NEEDED FOR 7 DAYS zolpidem 10 mg tablet TAKE 1 TABLET 1 Active BY MOUTH AT 9 BEDTIME NEEDED hydroxychloroquine 200 Take 1.5 135 tablet 1 Active mg tabletIndications: tablets by 9 020 Sjogren's syndrome, mouth daily for with unspecified organ 90 days. involvement, Polyarthralgia meloxicam 7.5 mg Take 1 tablet 90 tablet 0 Active tabletIndications: daily as needed 9 Sjogren's syndrome, for joint pain with unspecified organ involvement, Polyarthralgia ergocalciferol, Take 1 capsule 12 capsule 0 Active vitamin d2, 50,000 by mouth weekly 9 020 unit for 90 days. capsuleIndications: Hypovitaminosis D hydrocortisone 2.5 % Apply to 454 g 2 Active creamIndications: affected 0 Other atopic area(s) 2 (two) dermatitis times daily. Apply to itchy areas on arms, legs, trunk twice daily as needed timolol 0.5 % Place 1 Drop in 5 mL 3 Active ophthalmic solution both eyes every 0 morning. methotrexate 2.5 mg Take 5 tablets 60 tablet 1 12/26 Active tabletIndications: by mouth weekly 0 020 Sjogren's syndrome, with unspecified organ involvement, Polyarthralgia foLIC acid 1 mg Take 1 tablet 90 tablet 1 Active tabletIndications: by mouth daily 0 020 Sjogren's syndrome, for 90 days. with unspecified organ involvement, Polyarthralgia hydroxychloroquine Take 1.5 135 tablet 1 Active (PLAQUENIL) 200 mg tablets by 0 020 tabletIndications: mouth daily for Sjogren's syndrome, 90 days. with unspecified organ involvement, Polyarthralgia amoxicillin 500 mg TAKE ONE 0 D iscontinued capsule CAPSULE BY 8 020 MOUTH 4 TIMES A DAY UNTIL ALL TAKEN , TAKE WITH FOOD AND DRINK PLENTY OF WATER furosemide 20 mg TAKE 1 TABLET 2 Discontinued tablet BY MOUTH EVERY 8 020 MORNING indomethacin 25 mg TAKE 1 CAPSULE 2 Discontinued capsule BY MOUTH TWICE 9 020 A DAY WITH FOOD OR MILK predniSONE 20 mg TAKE 1 TABLET 0 Discontinued tablet BY MOUTH TWICE 9 020 A DAY FOR 5 DAYS traZODONE 50 mg tablet TAKE 1 TABLET 5 11/24 Discontinued BY MOUTH EVERY 9 020 DAY AT BEDTIME NEEDED documented as of this encounter (statuses as of 09/28/2019) Active Problems Patient Care Coordination Note Diabetes [...] 120-160 My Diabetes Care Plan includes the tooo wing: Check and record my blood glucose at 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 Rheumatoid factor positive 09/28/2019 Positive ALIA (antinuclear antibody) 09/28/2019 Morbid obesity with body mass index of 40.0-49.9 06/28 Long-term use of Plaquenil 06/22/2018 Iron deficiency anemia 05/24/2018 Skin depigmentation 05/24/2018 Positive QuantiFERON-TB Gold test 04/20/2018 Intermediate TPMT enzyme activity: 23.4 04/18/2018 Hypovitaminosis D: 14(03/2018) 04/15/2018 Immunization counseling 04/12/2018 correction (current) use of non-steroidal anti-inflamma tories (nsaid) [...] shoulder region 03/31/2011 Overview: ICD10 Diagnosis Term [employer] Utility Myalgia and myositis 03/27/2011 Overview: ICD10 Diagnosis Term [employer] Other specified crystal arthropathies, shoulder region 03/27/2011 Sjogren's syndrome: sicca, + SSA 03/13/2011 Polyarthralgia: RF 30, CCP 21 03/13/2011 Elevated rheumatoid factor 03/13/2011 Lumbago 03/13/2011 documented as of this encounter (statuses as of 09/28/2019) Resolved Problems Problem Noted Date Resolved Date Positive ALIA (antinuclear antibody) 1:320 04/12/2018 05/24/2018 documented as of this encounter (statuses as of 09/28/2019) Immunizations Name Administration Dates Next Due Influenza [...] of this encounter Last Filed Vital Signs Vital Sign Reading Time Taken Comments Blood Pressure 138/74 09/28/2019 10:55 AM FITTER'S ASSISTANT Pulse 65 09/28/2019 10:55 AM FITTER'S ASSISTANT Temperature 36.6 C (97.8 F) 09/28/2019 10:55 AM FITTER'S ASSISTANT Respiratory Rate 16 09/28/2019 10:55 AM FITTER'S ASSISTANT Oxygen Saturation 97% 09/28/2019 10:55 AM FITTER'S ASSISTANT Inhaled Oxygen Concentration - - Weight 109.2 kg (240 lb 11.2 oz) 09/28/2019 10:55 AM FITTER'S ASSISTANT Height 160 cm (5' 3") 09/28/2019 10:55 AM FITTER'S ASSISTANT Body Mass Index 42.64 09/28/2019 10:55 AM FITTER'S ASSISTANT documented in this encounter Patient Instructions Patient InstructionsYamilet Porter MD - 09/28/2019 10:30 AM FITTER'S ASSISTANT- Please take Vitamin D as prescribed. After completing the medication (for 3 months), you can starttaking over the counter Vitamin D3 1000 units daily - Continue Plaquenil 300 mg daily - Will start Methotrexate - please take 5 pills ONCE a week - Will start Folic acid 1 mg daily - may use Tylenol (Acetaminophen) over the counter as needed for joint pains, not to exceed 2000 mg in 24 hours - Return to Clinic in 3-4 months ER'S ASSISTANT documented in this encounter Progress Notes Jameson Valentin MD - 09/28/2019 10:30 AM CSTMarch [address] Porter, I interviewed and examined the patient with Dr. Porter todayin the clinic. Jackeline Weinstein is a 53 year old female from [place], a follow-up patient. She has a complicated medical history: several diagnoses, including gout, Sjogren's syndrome, fibromyalgia, history of latent TB, treated, etc. Her description of polyarticular joint symptoms would suggest more aninflammatory autoimmune disorder than gout. A serum uric acid was in fact only 5.7 mg/dl or so. She hurts in multiple joints most of the time, including both hands in the MCPs. PMH: HTN, glaucoma, history of treated latent TB, gout, fibromyalgia, anxiety-depression, anemia, chronic low back pain, diabetes mellitus, type 2. Medications: Plaquenil, 300 mg, allopurinol, 100 mg, iron, meloxicam, prn, metformin, Zofran, Zaphris SL tablet, vitamin C, Lasix, clonazepam, Prozac, Neurontin, 800 mg PO TID, lamotrigine, lisinopril-HCTZ, metaxalone, 800 mg 4 times daily. Her labs are from January, MAR, APR, andDEC 2019: a CBC shows anemia, with a Hb of 9.2 (this is she says from her S/P bariatric surgery for obesity); a CMP, TSH, UA, SPEP, and a CK were normal. An ALIA was positive in 2010, at 1:320 but laternegative in 2018. An anti-Ro was positive in the 30 unit range, and an anti-CCP was 21, repeated at 22.4; a RA factor is also positive at 58. An anti-La was negative, anti-DNA, and other autoantibodieswere negative. A hep C was non-reactive. A TPMT was low at 23.4. A G6PDS screen was normal. A CRP [id number] was 1.8. C3 was normal, and C4 low at 17. A serum uric acid was 4.1 mg/dl, on allopurinol, 100 mg. Hand and foot films were rather non-specific with periarticular osteopenia, and some cystic areas, without overt erosions. She has OA changes as well, without findings suggestive of gout. PE: she is in a wheel-chair. She is obese. The MCPs seem mildly puffy, without over synovitis. Thereis no Raynaud's, parotid enlargement, skin rashes, etc. A Prayer sign is mildly positive. Her lungs are clear. I don't believe she has gout. If anything, her joint symptoms, lab, and physical findings would suggest more a polyarticular inflamatory arthropathy, along the lines of Sjogren's, UCTD, RA, or similar overlap. In addition, she can have diabetic neuropathy and/or arthropathy. Today, we are referring her to endocrinology for diabetes management. We reminded her to continue having the annual retinal examinations, as required. Therapeutically, we are continuing the Plaquenil, 300 mg PO QHS, and adding MTX, 5 pills weekly, along with daily folic acid. We are D/Cing the allopurinol. We asked her not to drink alcohol while on the MTX. The potential medication side effects were discussed, including renal and liver dysfunction, infection, malignancy, GI ulceration and bleeding, cytopenias, bone marrow suppression, infection, retinopathy, pneumonitis, skin rashes, photosensitivity, etc. I agree with Dr. Porter's impressions & recommendations, as written. 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 She reports persistent joint pains in hands, knees and ankles. Has intermittent swelling of hands (MCPs) and ankles as well. Unable to make a full fist or carry out her regular activities. Continues to have dry eye and dry mouth. Using artificial tears. Denies any gout flares - states it occurred last on left foot about 4 months ago, lasting for a few days, and took indomethacin with good relief. Had some shrimp just prior. Avoiding shrimp, alcohol. She does drink sodas. Currently on Plaquenil 300 mg daily, Meloxicam 7.5 mg daily PRN (been taking everyday). Also on Allopurinol 100 mg daily. She takes Gabapentin 800 mg once or twice a day or so. She also takes [place] prn, about once a day or so. She is still on Vitamin D2 50,000 weekly. No longer on Indomethacin. Last Ophthalmology visit was 07/2019 - okay to continue Plaquenil. 06/2019 She reports joint pains in her hands, right elbow, wrists, right knee, right hip, feet. There is intermittent swelling in her hands (MCPs), feet, right elbow, and right knee. Has days of difficulty making a fist a few times a month. She has been off Plaquenil for 6 months. She reports blurry vision which was concerning for her and was advised on phone to see Ophthalmology by her [employer], which she was unable to. She was notable to keep up with her follow up appointment with [employer] as well. Morning stiffness 30 minutes. She takes Gabapentin 800 mg once every other day or so. She also takes [place] prn, about once a day or so. Also on Skelaxin prn. Denies any nsaids otc or Mobic. She is on Allopurinol 100 mg daily and Indomethacin 25 mg BID as prescribed by her PCP for joint pain/swelling/redness in right big toe - has been taking it off/on for past year. She does eat shrimp once a week; red meats once every 2 weeks; denies any Etoh use. Follows with Psychiatry. She says she stopped taking Latuda due to swelling in her body. 05/2018 - Seen by Dr. Myesha Lea Js is a 52 year old /White, or [place] female with past medical history significant for Depression/HTN/LBP/OA/FMS/Sjogren's syndrome. Last seen 05/24/2018. Seen by ID for latent TB and started on rifampin. Has seen eye doctor 02/2018 AND 04/2018- cleared for plaquenil. Has chronic anemia. Currently on ergocalciferol weekly. Continues to have diffuse joint and muscle aches, brain fog, difficulty multitasking/concentrating,Non refreshing sleep some days( no sleep study), labile mood. On gabapentin with some relief. Continues to have dry eyes, dry mouth- uses lubricating drops. Goes to see Dr. Horne in [place], went to see dentist last week. Uses norco 7.5mg and gabapentin as needed, uses mobic 7.5mg daily. Has had hand swelling. Patient denies fevers/ chills/ weight changes/ anorexia/ patchy hair loss/ swollen joints/ photosensitivity/ malar rash/ skin rashes/ recent infections/ nasal, oral or genital ulcers/ enlarged lymph nodes/ raynaud's phenomenon/ dyspnea/ chest pain/ cough/ serositis/ pleurisy/ abdominal pain/ bloody stools/ dysphagia/ cytopenia/ DVTs/ miscarriages/ seizures/ hematuria/ proteinuria/ digital ulcers/ GERD/ Skin thickening. + sicca/fatigue REVIEW OF SYSTEMS General - + Fatigue. Negative for generalized weakness, weight loss, fevers or chills HEENT - Negative for dry eyes, dry mouth, oral ulcers, blurry vision, eye pain, eye redness Cardiovascular - Negative for chest pain and palpitations Respiratory - Negative for cough and dyspnea Gastrointestinal - Negative for heart burn, dysphagia, abdominal pain, constipation, diarrhea Genitourinary - Negative for dysuria and hematuria Skin - Negative for rash and Raynaud's phenomenon Neuro - Negative for numbness, tingling and weakness. Negative for Seizures. Hematologic - Negative for blood clots and easy bruising Psych - Negative for anxiety, depression and hallucinations HISTORY Past Medical History: Diagnosis Date Abnormal uterine bleeding Anemia Anxiety Arthritis Autoimmune disorder Blood dyscrasia Chronic low back pain Depression DM (diabetes mellitus) Fibromyalgia Glaucoma Gout Hypertension Sjogren syndrome Ro and ALIA 1:320 Tuberculosis skin test positive / chest xray neg Past Surgical History: Procedure Laterality Date APPENDECTOMY SECTION CHOLECYSTECTOMY HYSTERECTOMY excessive bleeding LAPAROSCOPIC BARIATRIC GASTRIC BYPASS 2014 OPEN SHOULDER ROTATOR CUFF REPAIR TOOTH EXTRACTION [place] Teeth Family History Problem Relation Age of Onset Arthritis Father Diabetes Brother Arthritis Mother Diabetes Mother Cancer Mother breast Breast Cancer Mother 63 Asthma NoFHx defects NoFHx Colon Cancer NoFHx Ovarian Cancer NoFHx Uterine Cancer NoFHx Depression NoFHx Genetic NoFHx High cholesterol NoFHx Heart NoFHx Hypertension NoFHx Mental retardation NoFHx Neurological NoFHx Osteoporosis NoFHx Psychiatry NoFHx Other - see comments NoFHx Social History Socioeconomic History Marital status: Spouse name: Not on file Number of children: Not on file Years of education: Not on file Highest education level: Not on file 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 Social Needs Financial resource strain: Not on file Food insecurity: Worry: Not on file Inability: Not on file Transportation needs: Medical: Not on file Non-medical: Not on file Tobacco Use Smoking status: Former Smoker Types: Cigarettes Last attempt to quit: 03/13/1996 Years since quittin.5 Smokeless tobacco: Never Used Substance and Sexual Activity Alcohol use: No Drug use: No Sexual activity: Yes Partners: Male control/protection: Surgical Lifestyle Physical activity: Days per week: Not on file Minutes per session: Not on file Stress: Not on file Relationships Social connections: Talks on phone: Not on file Gets together: Not on file Attends faith service: Not on file Active member of club or organization: Not on file Attends meetings of clubs or organizations: Not on file Relationship status: Not on file Intimate partner violence: Fear of current or ex partner: Not on file Emotionally abused: Not on file Physically abused: Not on file Forced sexual activity: Not on file Other Topics Concern Not on file Social History Narrative , 4 children On disability No hx of TB contacts. Lives in [place] with . She had a "skin test for TB in the thatshowed a reaction, like swelling". She states that no further w/u or treatment was given". Allergies Allergen Reactions Lyrica [Pregabalin] Swelling Current Outpatient Medications on File Prior to Visit Medication Sig Dispense Refill timolol 0.5 % ophthalmic solution Place 1 Drop in both eyes every morning. 5 mL 3 hydrocortisone 2.5 % cream Apply to affected area(s) 2 (two) times daily. Apply to itchy areas on arms, legs, trunk twice daily as needed 454 g 2 ergocalciferol, vitamin d2, 50,000 unit capsule Take 1 capsule by mouth weekly for 90 days. 12 capsule 0 hydroxychloroquine 200 mg tablet Take 1.5 tablets by mouth daily for 90 days. 135 tablet 1 meloxicam 7.5 mg tablet Take 1 tablet daily as needed for joint pain 90 tablet 0 ferrous sulfate 325 mg (65 mg iron) EC tablet Take 325 mg by mouth daily. 5 indomethacin 25 mg capsule TAKE 1 CAPSULE BY MOUTH TWICE A DAY WITH FOOD OR MILK 2 metFORMIN 500 mg tablet TAKE 1 TABLET BY MOUTH TWICE A DAY WITH MEALS 1 ondansetron 4 mg tablet TAKE 1 TABLET BY MOUTH EVERY 12 HOURS NEEDED 0 pantoprazole 40 mg EC tablet Take 40 mg by mouth daily. 0 predniSONE 20 mg tablet TAKE 1 TABLET BY MOUTH TWICE A DAY FOR 5 DAYS 0 promethazine-codeine 6.25-10 mg/5 mL syrup TAKE BY MOUTH 1 TEASPOONFUL EVERY 6 HOURS NEEDED FOR 7 DAYS 0 SAPHRIS 10 mg sublinguql tablet TAKE 1 TABLET BY MOUTH EVERYDAY AT BEDTIME 2 traZODONE 50 mg tablet TAKE 1 TABLET BY MOUTH EVERY DAY AT BEDTIME NEEDED 5 VITAMIN C 500 mg tablet Take 500 mg by mouth daily. 5 zolpidem 10 mg tablet TAKE 1 TABLET BY MOUTH AT BEDTIME NEEDED 1 amoxicillin 500 mg capsule TAKE ONE CAPSULE BY MOUTH 4 TIMES A DAY UNTIL ALL TAKEN , TAKE WITH FOOD AND DRINK PLENTY OF WATER 0 furosemide 20 mg tablet TAKE 1 TABLET BY MOUTH EVERY MORNING 2 LATUDA 40 mg tablet TAKE 1 TABLET BY MOUTH IN THE EVENING WITH A FULL MEAL 2 Fluocinolone-Hydroq.-Tretinoin (TRI-JOHN) 0.01-4-0.05 % cream Apply to area(s) at bedtime. 30 g1 allopurinol 100 mg tablet Take 100 mg by mouth daily. buPROPion XL 300 mg 24 hr tablet Take 300 mg by mouth daily. clonazePAM 2 mg tablet Take 2 mg by mouth daily. FLUoxetine 40 mg capsule Take 40 mg by mouth daily. furosemide 40 mg/5 mL (8 mg/mL) solution Take 20 mg by mouth daily. gabapentin 800 mg tablet Take 800 mg by mouth 3 (three) times daily. HYDROcodone-acetaminophen 7.5-325 mg per tablet Take 1 tablet by mouth 3 (three) times daily. lamoTRIgine 100 mg tablet Take 100 mg by mouth daily. latanoprost 0.005 % ophthalmic drops Place 1 Drop in both eyes every evening. lisinopril-hydrochlorothiazide 20-12.5 mg per tablet Take 1 tablet by mouth daily. metaxalone 800 mg tablet Take 800 mg by mouth 4 (four) times daily. No current facility-administered medications on file prior to visit. PHYSICAL EXAM BP 138/74 (BP Location: Left arm, Patient Position: Sitting, BP CUFF SIZE: Adult Medium) | Pulse 65 | Temp 36.6 C (97.8 F) (Oral) | Resp 16 | Ht 5' 3" (1.6 m) | Wt 240 lb 11.2 oz (109.2 kg) |SpO2 97% | BMI 42.64 kg/m General: Alert, Oriented to name, place and time, No apparent distress Psych: Mood and affect congruent Eyes: Pupils equal round, reactive to light, Sclera non injected, anicteric Ears, Nose, Throat, Mouth: Oral mucosa moist with good salivary pool; no oral or nasal ulcers or erythema;no parotid enlargement Skin: No rashes noted Neck: No lymphadenopathy Cardiovascular: Regular S1, S2; normal rate and rhythm; no murmurs/rubs/gallops appreciated; no lower extremity edema Respiratory: clear to ausculation bilaterally, no wheezes or crackles Abdomen: Soft, nontender, nondistended with normoactive bowel sounds Neuro: Normal proximal and distal muscle strength; able to rise from chair without assistance; Cranial nerves 2-12 grossly intact Musculoskeletal: Hands: Normal, No swelling, tenderness, warmth, erythema, present at the PIPs, DIPs, MCPs. OA changes: none. Fist makin % bilaterally Wrists: Normal. No swelling, tenderness, warmth, erythema. Bilateral ROM: Normal. Elbows: Normal. No swelling, tenderness, warmth, erythema. No nodules. Bilateral ROM: Normal. Shoulders: Normal. Bilateral ROM: Normal. Feet: Normal and bilateral MTP squeeze negative. Ankles: Normal. No swelling, tenderness, warmth, erythema. Bilateral ROM: Normal. Knees: Normal. Bony enlargement / crepitus negative. No swelling, tenderness, warmth, erythema. No joint effusion. Bilateral ROM: Normal. Hips: Normal and bilateral ROM: Normal. LABS 06/2019 Uric acid 4.1 RF 58 CCP 22.4 Vit D - 22 Added on SSA/ SSB to above labs --> SSA positive, SSB negative Xray reviewed at [facility]- Rheum conference dated 07/07/[address] Em XRay Hands: No marginal erosions, Rt 3rd MCP nonspecific cyst XRay feet Rt Osteophytes in Calcaneus Impression: No erosions, Osteopenia, OA changes 04/2019 (outside records) CMP normal Hg 9.7 HgA1C 6.4 TSH normal FT4 normal Result review: 03/2018: Hgb 9.2, MCV 88, plt 215, U/A WNL, SPEP WNL, + Qft, Vit D 14, HBcAB/HIV Neg, ALIA/Centromere/chromatin/SCL 70/ DS DNA/CCP Neg, C3/C4 WNL, TPMT 23.4, G6PD WNL, TSH 2.76, CRP 1.8, UA 5.2 02/2018: Cr 1.13, AST 14, ALT 12, Alb 3.7, UA 6.2, WBC 9, Hgb 9.6, plt 278, RF 30 01/2018: Hgb 8.9, MCV 85, ESR 69 2012: +SSA, SSB neg, CRP 1.4, ESR 63, RF <20 2010: ESR 57, HCV/HBsAG Neg, ALIA 1:320 03/2018 CXR: WNL 03/2018 XRAY HANDS/FEET Findings are nonspecific for inflammatory arthropathy, but may represent early inflammatory arthritis. Mild to moderate bilateral hands and wrists osteoarthrosis. Right hallux valgus. No acute osseous abnormality. 01/2018 CXR Mild pulmonary venous congestion 01/2018 XRAY R HAND 1. No acute abnormality. 2. Osteoarthritis and osteopenia 12/2016 MRI [facility] -Advanced OA changes in medial compartment, chondromalacia, meniscal tear 08/2017 MRI [facility] Degenerative medial meniscal tear, OA of medial compartment with subchondral edema ASSESSMENT ICD-10-CM ICD-9-CM 1. Sjogren's syndrome, with unspecified organ involvement M35.00 710.2 2. Polyarthralgia: RF 30, CCP 21 M25.50 719.49 3. Fibromyalgia M79.7 729.1 4. Positive anti-CCP test R76.8 795.79 5. Idiopathic gout of multiple sites, unspecified chronicity M10.09 274.00 6. ESR raised R70.0 790.1 7. Fatigue, unspecified type R53.83 780.79 8. Other depression F32.89 311 9. 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 +SSA in 2012. Using eye drops as prescribed by her Ophthalmology. Also has joint pains, could the joint pain be inflammatory in nature? Plan: - Continue Plaquenil 300 mg daily - Continue Meloxicam 7.5 mg daily prn joint pain - Will start Methotrexate 5 pills weekly - Will start Folic acid 1 mg daily - may use Tylenol (Acetaminophen) over the counter as needed for joint pains, not to exceed 2000 mg in 24 hours Polyarthralgia: CCP 22, RF 58 Positive anti-CCP test Comment: low titer CCP (21). +SSA in 2012 with sicca symptoms. Has ongoing diffuse pain and swellingin hands - likely has FMS, OA and more likely element of inflammatory arthritis - RA vs Sjogren's vsGout?. Hand and Feet XR in 2018 showing Findings are nonspecific for inflammatory arthropathy, but may represent early inflammatory arthritis. Mild to moderate bilateral hands and wrists osteoarthrosis. Plan: - Continue Plaquenil 300 mg daily - Continue Meloxicam 7.5 mg daily prn joint pain - Will start Methotrexate 5 pills weekly - Will start Folic acid 1 mg daily - may use Tylenol (Acetaminophen) over the counter as needed for joint pains, not to exceed 2000 mg in 24 hours History of gout Comment: low serum uric acid. Her joint pains are not suggestive of acute/chronic gout flare at thistime. Plan: - Will STOP Allopurinol - monitor Fibromyalgia Comment: Clinical scenario is suggestive of chronic fatigue/fibromyalgia. Fibromyalgia is a condition is associated with abnormal central processing of various peripheral stimuli including pain. Diagnosis based on clinical symptoms and exam. The cornerstones of therapy for this are optimal sleep, regular aerobic exercise (stationary bike, pool therapy) and optimal treatment of depression. Optimal quality sleep (especially deep sleep - phase 3/4 NREM) is important to achieve and hence recommend follow up with sleep physician. Patient may also benefit from relaxation techniques such as yoga or biofeedback to help deal better with stress. We emphasize that all the three aspects of the treatment (sleep, exercise, depression) be addressed simultaneously for maximum benefit and effective treatment of this condition. Doing one or the other will result in less than an optimal response to treatment. Plan: - Recommend low grade low impact graded aerobic exercise - Recommend aquatic therapy - Consider referral to sleep medicine + Qft test Completed rifampin for latent TB by ID in 2018 Plan: - noted ESR raised Comment: has had chronically elevated ESR- likely related to multiple comorbidities Plan: - Recommend age appropriate malignancy screening Fatigue, unspecified type Comment: Likely multifactorial Plan: replete vit D Monitor Other depression Comment: ongoing issue Plan: - F/U with psychiatry Hypovitaminosis D Plan: - Vit D 22 in 06/2019 - Being repleted RTC in 3-4 months YAMILET PORTER MD Rheumatology Fellow, PGY-5 Pager: [phone] ER'S ASSISTANT documented in this encounter Plan of Treatment Date Type Specialty Care Team Description 10/26/2019 Office Visit Ophthalmology Adelita Pham MD [address] [place] [address] [phone] 12/11/2019 Office Visit Endocrinology Diabetes & Kesired Korina bedolla MD Metabolism [address] [place] [address] [phone] 12/28/2019 Office Visit Dermatology Marisa Asher MD [address] [place] [phone] 12/28/2019 Office Visit Rheumatology Surendra Porter i, MD [address] [place] [address]. [place] [address] [phone] 07/01/2020 Office Visit Obstetrics & Gynecology Amy Ibarra PA-C [address] [place], [place] [phone] Health Maintenance Due Date Last Done [...] Results Not on filedocumented in this encounter Visit Diagnoses Diagnosis Sjogren's syndrome, with unspecified org an involvement - Primary Polyarthralgia: RF 30, CCP 21 Pain in joint, multiple sites Fibromyalgia Mylagia and myositis, unspecified Positive anti-CCP test Other and unspecified nonspecific immuno logical findings ESR raised Elevated sedimentation rate Fatigue, unspecified type Other depression Hypovitaminosis D: 14(03/2018) Unspecified vitamin D deficiency Positive ALIA (antinuclear antibody) Other and unspecified nonspecific immuno logical findings Rheumatoid factor positive Other and unspecified nonspecific immuno logical findings 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
--- OUTSIDE RECORDS SUMMARY | 2019-11-09 21:44 | XMS REPORT | Summary of Care ---
:1965 Author Organization [facility] Address [address] [place] [address] Care Team Providers Name Role Phone Eber Maria Primary Care Provider Reason for Referral (Routine) Status Reason Specialty Diagnoses / Referred By Referred To Procedures Contact Contact New Request Endocrinology Diagnoses Sjogren's syndrome, with unspecified organ involvement Polyarthralgia Homero Diabetes & Procedures CONSULT/REFERRAL ENDOCRINOLOGY Preferred Location: [facility] Jameson Sanon MD [id number] [place] [address] Reason for Visit Reason Comments Follow-up Encounter Details Date Type Department Care Team Description 09/28/2019 Office Visit [facility] Jameson aVlentin MD [address] [place], [place] [phone] [place] [address] Sjogren's syndrome, with unspecified org an involvement (Primary Dx); Internal Medicine Yamilet Porter MD [address] [place] [address]. [place] [address] Polyarthralgia: RF 30, CCP 21; [facility]ology[facility] Fibromya lgia; ton Positive anti-CCP test; Primary Care ESR raised; Pavilion Fatigue, unspecified type; [address] , Other de pression; [address] Hypovitaminosis D: 14(03/2018 ); [place], [place] Positive ALIA ( antinuclear antibody); [address] Rheumatoid factor positive; [phone] Hypocomplemente andrew; History of gout Allergies Active [...] Check and record my blood glucose at [facility] once a day, alternating between checking [...] shoulder region 03/31/2011 Overview: ICD10 Diagnosis Term Manager Risk Management Utility Myalgia and myositis 03/27/2011 Overview: ICD10 Diagnosis Term Manager Risk Management Utility Other specified crystal arthropathies, shoulder region [...] Comments Blood Pressure 138/74 09/28/2019 10:55 AM GRAIN PICKER Pulse 65 09/28/2019 10:55 AM GRAIN PICKER Temperature 36.6 C (97.8 F) 09/28/2019 10:55 AM GRAIN PICKER Respiratory Rate 16 09/28/2019 10:55 AM GRAIN PICKER Oxygen Saturation 97% 09/28/2019 10:55 AM GRAIN PICKER Inhaled Oxygen Concentration - - Weight 109.2 kg (240 lb 11.2 oz) 09/28/2019 10:55 AM GRAIN PICKER Height 160 cm (5' 3") 09/28/2019 10:55 AM GRAIN PICKER Body Mass Index 42.64 09/28/2019 10:55 AM GRAIN PICKER documented in this encounter Patient Instructions Patient InstructionsYamilet Porter MD - 09/28/2019 10:30 AM GRAIN PICKER- Please take Vitamin D as prescribed. After [...] - Return to Clinic in 3-4 months N PICKER documented in this encounter Progress Notes Jameson Valentin MD - 09/28/2019 10:30 AM CSTMarch [address] Porter, I interviewed and examined the patient with Dr. Porter todayin the clinic. Jackeline Weinstein is a 53 year old female from [place], a follow-up patient. She has a complicated [...] A G6PDS screen was normal. A CRP [id number] was 1.8. C3 was normal, and C4 [...] Dr. Porter's impressions & recommendations, as written. 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 She also takes Dawes prn, about once a day or so. [...] on phone to see Ophthalmology by her Casting Carrier, which she was unable to. She was notable to keep up with her follow up appointment with Casting Carrier as well. Morning stiffness 30 minutes. She takes Gabapentin 800 mg once every other day or so. She also takes Dawes prn, about once a day or so. [...] a 52 year old /White, or [place] female with past medical history significant for [...] drops. Goes to see Dr. Horne in [place], went to see dentist last week. Uses [...] OPEN SHOULDER ROTATOR CUFF REPAIR TOOTH EXTRACTION [place]eth Family History Problem Relation Age of [...] file Gets together: Not on file Attends amish service: Not on file Active member of [...] No hx of TB contacts. Lives in [place] with . She had a "skin test [...] SSA positive, SSB negative Xray reviewed at [facility] Radio- Rheum conference dated 07/07/[address] [...] YAMILET PORTER MD Rheumatology Fellow, PGY-5 Pager: [phone] N PICKER documented in this encounter Plan of Treatment Date Type Specialty Care Team Description 10/26/2019 Office Visit Ophthalmology Adelita Pham MD [address] [place] [address] [phone] 12/11/2019 Office Visit Endocrinology Diabetes & Kesired Korina bedolla MD Metabolism [address] [place] [address] [phone] 12/28/2019 Office Visit Dermatology Marisa Asher MD [address] [place] [phone] 12/28/2019 Office Visit Rheumatology Surendra Porter i, MD [address] [place] [address]. [place] [address] [phone] 07/01/2020 Office Visit Obstetrics & Gynecology Amy Ibarra PA-C [address] [place], [place] [address] [phone] Health Maintenance Due Date Last Done [...] Effective Dates Phone Addre ss Type Group [facility] xxxxxxxxx 2014-Present Medicaid COMM PLAN - PLUS MANAGED MEDICAID documented as of this encounter Advance Directives Type Date Recorded Patient Feed Blender Explanati on Advance Directives and Living Will Power of Business Continuity Planner
--- OUTSIDE RECORDS SUMMARY | 2019-11-09 21:45 | XMS REPORT ---
[...] osteoarthritis of left knee M17.12 Active Assessment Pain in joint of left knee M25.562 A ctive Assessment Pain in joint of right knee M25.561 Active Medications Medication Code Code Instructions Start End Status Dosage System Date Date Lamotrigine [facility] 54486490844 100 MG Oral Active TAKE 1 TABLET BY MOUTH EVERY DAY Clonazepam [facility] 82504692670 2 MG Oral Active (Schedu le IV Drug) TAKE 1 TABLET BY MOUTH 3 TIMES A DAY FOR 30 DAYS Fluoxetine HCl [facility] 78299364811 40 MG Oral Active TA KE 1 CAPSULE BY MOUTH EVERY DAY Timolol Maleate [facility] 41597744544 0.5 % Active INST ILL 1 Ophthalmic DROP INTO BOTH EYES EVERY MORNING Gabapentin [facility] 96693443920 800 MG Oral Active TAKE 1 TABLET BY MOUTH THREE TIMES A DAY OneTouch Verio [facility] 66582423808 - In Vitro Active US E ONCE A DAY IN MORNING Pantoprazole [facility] 74293094192 40 MG Oral Active TAKE 1 Sodium TABLET BY MOUTH DAILY 30 MINUTES BEFORE BREAKFAST (ON AN EMPTY STOMACH) Allopurinol ND 71366672846 100 MG Oral Active TAKE 1/2 TABLET TWICE A DAY Mobic [facility] 91011330332 7.5 MG Orally Active 1 tabl et Once a day Azithromycin [facility] 59802041969 250 MG Oral Active LUIS E 2 TABLETS BY MOUTH TODAY, THEN TAKE 1 TABLET DAILY FOR 4 DAYS Furosemide ND 72859416376 40 MG Oral Active TAKE 1 TABLET BY MOUTH TWICE A DAY Metformin HCl [facility] 07978784720 500 MG Oral Active TA KE 1 TABLET BY MOUTH TWICE A DAY WITH MEALS Leflunomide [facility] 26112792286 20 MG Oral Active TAKE 1 TABLET BY MOUTH EVERY DAY Lisinopril-Wilton [facility] 74811225915 20-12.5 MG Oral Act chaparro TAKE 1 chlorothiazide TABLET BY MOUTH EVERY MORNING Metaxalone [facility] 04791570767 800 MG Oral Active TAKE 1 TABLET BY MOUTH EVERY DAY Triamcinolone [facility] 11705746136 0.1 % External Active APPLY 1-2 Acetonide GRAMS TO AFFECTED AREA(S) UP TO 3-4 TIMES DAILY NEEDED, AVOID FACE. USE 2 WEEKS ON, 1 WEEK OFF LONG DIRECTED BY PHYSICIAN Hydrocodone-Acet [facility] 38821919216 7.5-325 MG Oral Act chaparro (Schedule aminophen II Drug) TAKE 1 TABLET BY MOUTH 3 TIMES A DAY BuPROPion HCl ER [facility] 16622644373 300 MG Oral Active TAKE 1 (XL) TABLET EVERY MORNING Latuda [facility] 08184608152 40 MG Orally Active 1 table t Once a day with food Results No Known Results Summary Purpose eClinicalWorks Submission
--- OUTSIDE RECORDS SUMMARY | 2019-11-09 21:45 | XMS REPORT | Summary of Care ---
:1965 Author Organization [facility] Address [address] [place] [address] Care Team Providers Name Role Phone Eber Maria Primary Care Provider Reason for Referral (Routine) Status Reason Specialty Diagnoses / Referred By Referred To Procedures Contact Contact New Request Endocrinology Diagnoses Sjogren's syndrome, with unspecified organ involvement Polyarthralgia Homero Diabetes & Procedures CONSULT/REFERRAL ENDOCRINOLOGY Preferred Location: [facility] Jameson Sanon MD [phone] [place] [address] Reason for Visit Reason Comments Follow-up Encounter Details Date Type Department Care Team Description 09/28/2019 Office Visit [facility] Jameson Valentin MD [address] [place], [place] [phone] [place] [address] Sjogren's syndrome, with unspecified org an involvement (Primary Dx); Internal Medicine Yamilet Porter MD [address] [place] [address]. [place] [address] Polyarthralgia: RF 30, CCP 21; Rheumatology-[facility] Fibromya lgia; ton Positive anti-CCP test; Primary Care ESR raised; [facility] Fatigue, unspecified type; [address] , Other de pression; [address] Hypovitaminosis D: 14(03/2018 ); [place], [place] Positive ALIA ( antinuclear antibody); [address] Rheumatoid factor positive; [phone] Hypocomplemente andrew; History of gout Allergies Active Allergy Reactions Severity Noted Date Comments Pregabalin Swelling 05/24/2018 documented as of this encounter (statuses as of 10/06/2019) Medications Medication Sig Dispensed Refills Start End [...] Active BY MOUTH AT 9 BEDTIME NEEDED meloxicam 7.5 mg Take 1 tablet 90 [...] EVERY 9 020 DAY AT BEDTIME NEEDED hydroxychloroquine 200 Take 1.5 135 tablet 1 mg tabletIndications: tablets by 9 020 Sjogren's syndrome, mouth daily for with unspecified organ 90 days. involvement, Polyarthralgia documented as of this encounter (statuses as of 10/06/2019) Active Problems Patient Care Coordination Note Diabetes [...] Check and record my blood glucose at [facility] once a day, alternating between checking before breakfast and checking 2 hours after my largest meal Check and record blood pressure at [facility] once a week Exercise at least 30 [...] Hypovitaminosis D: 14(03/2018) 04/15/2018 Immunization counseling 04/12/2018 manager long term care (current) use of non-steroidal anti-inflamma tories [...] shoulder region 03/31/2011 Overview: ICD10 Diagnosis Term Structural Steel Trades Worker Utility Myalgia and myositis 03/27/2011 Overview: ICD10 Diagnosis Term Structural Steel Trades Worker Utility Other specified crystal arthropathies, shoulder region 03/27/2011 Sjogren's syndrome: sicca, + SSA 03/13/2011 Polyarthralgia: RF 30, CCP 21 03/13/2011 Elevated rheumatoid factor 03/13/2011 Lumbago 03/13/2011 documented as of this encounter (statuses as of 10/06/2019) Resolved Problems Problem Noted Date Resolved Date Positive ALIA (antinuclear antibody) 1:320 04/12/2018 05/24/2018 documented as of this encounter (statuses as of 10/06/2019) Immunizations Name Administration Dates Next Due Influenza [...] Comments Blood Pressure 138/74 09/28/2019 10:55 AM SOAP MIXER Pulse 65 09/28/2019 10:55 AM SOAP MIXER Temperature 36.6 C (97.8 F) 09/28/2019 10:55 AM SOAP MIXER Respiratory Rate 16 09/28/2019 10:55 AM SOAP MIXER Oxygen Saturation 97% 09/28/2019 10:55 AM SOAP MIXER Inhaled Oxygen Concentration - - Weight 109.2 kg (240 lb 11.2 oz) 09/28/2019 10:55 AM SOAP MIXER Height 160 cm (5' 3") 09/28/2019 10:55 AM SOAP MIXER Body Mass Index 42.64 09/28/2019 10:55 AM SOAP MIXER documented in this encounter Patient Instructions Patient InstructionsYamilet Porter MD - 09/28/2019 10:30 AM SOAP MIXER- Please take Vitamin D as prescribed. After [...] - Return to Clinic in 3-4 months MIXER documented in this encounter Progress Notes Jameson Valentin MD - 09/28/2019 10:30 AM CSTMarch [address] Porter, I interviewed and examined the patient with Dr. Porter todayin the clinic. Jackeline Weinstein is a 53 year old female from [place], a follow-up patient. She has a complicated [...] A G6PDS screen was normal. A CRP [id number] was 1.8. C3 was normal, and C4 [...] Dr. Porter's impressions & recommendations, as written. 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 She also takes Glen prn, about once a day or so. [...] on phone to see Ophthalmology by her Relationship Specialist, which she was unable to. She was notable to keep up with her follow up appointment with Relationship Specialist as well. Morning stiffness 30 minutes. She takes Gabapentin 800 mg once every other day or so. She also takes Glen prn, about once a day or so. [...] a 52 year old /White, or [place] female with past medical history significant for [...] drops. Goes to see Dr. Horne in [place], went to see dentist last week. Uses [...] OPEN SHOULDER ROTATOR CUFF REPAIR TOOTH EXTRACTION [place] Teeth Family History Problem Relation Age of [...] file Gets together: Not on file Attends mandaen service: Not on file Active member of [...] No hx of TB contacts. Lives in [place] with . She had a "skin test [...] SSA positive, SSB negative Xray reviewed at [facility] Radio- Rheum conference dated 07/07/[address] [...] YAMILET PORTER MD Rheumatology Fellow, PGY-5 Pager: [phone] MIXER documented in this encounter Plan of Treatment Date Type Specialty Care Team Description 10/26/2019 Office Visit Ophthalmology Adelita Pham MD [address] [phone] 12/11/2019 Office Visit Endocrinology Diabetes & Kesired Korina bedolla MD Metabolism [address] [place], [place] [address] 12/28/2019 Office Visit Dermatology Marisa Asher MD [address] [place] [phone] 12/28/2019 Office Visit Rheumatology Surendra Porter i, MD [address] [place] [address]. [place] [phone] 07/01/2020 Office Visit Obstetrics & Gynecology Amy Ibarra PA-C [address] [place] [phone] Name Type Priority Associated Diagnoses Order S chedule CBC WITH DIFF LAB Routine Sjogren's syndrome, with Ex pected: 10/06/2019, unspecified organ Expires: 0 10/05/2020 involvement COMP. METABOLIC PANEL LAB Routine Sjogren's syndrome, with Expected: 10/06/2019, ([id number]) unspecified organ Expires: 0 10/05/2020 involvement Health Maintenance Due Date Last Done Comments PNEUMOCOCCAL 0-64 YEARS COMBINED 09/30/1969 SERIES (1 of 3 - PCV13) MENINGOCOCCAL B VACCINES (1 of 2 - 09/30/1973 Risk Bexsero 2-dose series) DTaP,Tdap,and Td Vaccines (1 - 09/30/1974 Tdap) [...] Effective Dates Phone Addre ss Type Group [facility] xxxxxxxxx 2014-Present Medicaid COMM PLAN - PLUS MANAGED MEDICAID documented as of this encounter Advance Directives Type Date Recorded Patient Vegetable Harvest Worker Explanati on Advance Directives and Living Will Power of Piped Buttonhole Machine Operator
--- OUTSIDE RECORDS SUMMARY | 2019-11-09 21:45 | XMS REPORT | Summary of Care ---
:1965 Author Organization [facility] Address [address] [place] [id number] Care Team Providers Name Role Phone Candace Eber Causey Primary Care Provider Reason for Visit Reason Comments Refill Request meloxicam 7.5 mg tablet Encounter Details Date Type Department Care Team Description 10/03/2019 Refill [facility] Internal Yamilet Robin MD Refill Request Medicine [address] [place] [address] lvd. (meloxicam 7.5 mg Rheumatology[facility] [place] tablet ) [place] [phone] [facility] [address] [place] [address] Allergies Active Allergy Reactions Severity Noted Date [...] at 18 0.01-4-0.05 % bedtime. creamIndications: Melasma LATUDA 40 [...] mg iron) EC tablet mouth daily. 19 metFORMIN 500 mg TAKE 1 TABLET 1 08/23/19 Active tablet BY MOUTH TWICE 19 A DAY WITH MEALS ondansetron 4 mg TAKE 1 TABLET 0 09/02/19 Active tablet BY MOUTH EVERY 19 12 HOURS NEEDED pantoprazole 40 mg EC Take 40 mg by 0 09/02/19 Active tablet mouth daily. 19 promethazine-codeine TAKE BY MOUTH 0 06/29/20 Active 6.25-10 mg/5 mL syrup 1 TEASPOONFUL 18 EVERY 6 HOURS NEEDED FOR 7 DAYS zolpidem 10 mg tablet TAKE 1 TABLET 1 08/30/19 Active BY MOUTH AT 19 BEDTIME NEEDED ergocalciferol, Take 1 capsule 12 capsule 0 07/13/2010/10/ Active vitamin d2, 50,000 by mouth 19 020 unit weekly for 90 capsuleIndications: days. Hypovitaminosis D hydrocortisone 2.5 % Apply to 454 g 2 07/27/19 Active creamIndications: affected 20 Other atopic area(s) 2 dermatitis (two) times daily. Apply to itchy areas on arms, legs, trunk twice daily as needed timolol 0.5 % Place 1 Drop 5 mL 3 07/31/19 Act chaparro ophthalmic solution in both eyes 20 every morning. methotrexate 2.5 mg Take 5 tablets 60 tablet 1 09/28/1912/26 Active tabletIndications: by mouth 20 020 Sjogren's syndrome, weekly with unspecified organ involvement, Polyarthralgia foLIC acid 1 mg Take 1 tablet 90 tablet 1 09/28/19 Active tabletIndications: by mouth daily 20 020 Sjogren's syndrome, for 90 days. with unspecified organ involvement, Polyarthralgia hydroxychloroquine Take 1.5 135 tablet 1 09/28/19 Active (PLAQUENIL) 200 mg tablets by 20 020 tabletIndications: mouth daily Sjogren's syndrome, for 90 days. with unspecified organ involvement, Polyarthralgia meloxicam 15 mg Take 1 tablet 30 tablet 0 10/06/19 Active tabletIndications: daily as 20 Sjogren's syndrome, needed for with unspecified organ joint pain involvement, Polyarthralgia hydroxychloroquine 200 Take 1.5 135 tablet 1 07/07/20 mg tabletIndications: tablets by 020 Sjogren's syndrome, mouth daily with unspecified organ for 90 days. involvement, Polyarthralgia meloxicam 7.5 mg Take 1 tablet 90 tablet 0 07/07/20 Discontinued tabletIndications: daily as 020 ( Reorder) Sjogren's syndrome, needed for with unspecified organ joint pain involvement, Polyarthralgia documented as of this encounter [...] record my blood glucose at [facility] once a day, alternating between checking before breakfast and checking 2 hours after my largest meal Check and record blood pressure at [facility] once a week Exercise at least [...] Hypovitaminosis D: 14(03/2018) 04/15/2018 Immunization counseling 04/12/2018 director long term care (current) use of non-steroidal [...] shoulder region 03/31/2011 Overview: ICD10 Diagnosis Term Thinner Sprayer Utility Myalgia and myositis 03/27/2011 Overview: ICD10 Diagnosis Term Thinner Sprayer Utility Other specified crystal arthropathies, shoulder region [...] 10/26/2019 Office Visit Ophthalmology Adelita Pham MD [address] [place] [address] [phone] 12/11/2019 Office Visit Endocrinology Diabetes & Kesired Korina bedolla MD Metabolism [address] [place] [address] [phone] 12/28/2019 Office Visit Dermatology Marisa Asher MD [address] [place] [phone] 12/28/2019 Office Visit Rheumatology Surendra Robin i, MD [address] [place] [address]. [place] [phone] 07/01/2020 Office Visit Obstetrics & Gynecology Amy Ibarra PA-C [address] [place] [phone] Health Maintenance Due Date Last [...] Sjogren's syndrome, with unspecified org an involvement Polyarthralgia: RF 30, CCP 21 Pain in joint, multiple sites documented in this encounter Insurance Payer Benefit Plan Subscriber ID Effective Phone Address Typ e / Group Dates [facility] xxxxxxxxx 2014-Prese Medic aid HEALTHCARE COMM STAR PLUS nt PLAN - MANAGED MEDICAID [facility] MEDICAID OF xxxxxxxxx 2017-Pre [phone] Med icaid [place] sent [id number] [place] [address] [facility] TOTAL [facility] TOTAL [id number] 2018-Prese Visio n VISION VISION nt documented as of this encounter Advance Directives Type Date Recorded Patient Rail Equipment Operator Explanati on Advance Directives and Living Will Power of Supersonic Engineer
--- OUTSIDE RECORDS SUMMARY | 2019-11-09 21:46 | XMS REPORT | Summary of Care ---
:1965 Author Organization [facility] Address [address] [place] [address] Care Team Providers Name Role Phone Eber Maria Primary Care Provider Reason for Visit Reason Comments Appointment Encounter Details Date Type Department Care Team Description 11/06/2019 Telephone [facility] Eye Adelita Pham MD Appointment Center-[address] [place] [address] [place] [address] [phone] Allergies Active Allergy Reactions Severity Noted Date Comments Pregabalin Swelling 05/24/2018 documented as of this encounter (statuses as of 11/06/2019) Medications Medication Sig Dispensed Refills Start Date [...] area(s) at 0.01-4-0.05 % bedtime. creamIndications: Melasma LATUDA 40 [...] (65 mg iron) EC tablet mouth daily. metFORMIN 500 mg tablet TAKE 1 TABLET BY 1 9 Active MOUTH TWICE A DAY WITH MEALS ondansetron 4 mg tablet TAKE 1 TABLET BY 0 9 Active MOUTH EVERY 12 HOURS NEEDED pantoprazole 40 mg EC Take 40 mg by 0 09/02/2018 Active tablet mouth daily. promethazine-codeine TAKE BY MOUTH 1 0 06/29/2018 Active 6.25-10 mg/5 mL syrup TEASPOONFUL EVERY 6 HOURS NEEDED FOR 7 DAYS zolpidem 10 mg tablet TAKE 1 TABLET BY 1 08/30/2018 Active MOUTH AT BEDTIME NEEDED hydrocortisone 2.5 % Apply to 454 g 2 07/27/2019 Active creamIndications: Other affected area(s) atopic dermatitis 2 (two) times daily. Apply to itchy areas on arms, legs, trunk twice daily as needed timolol 0.5 % ophthalmic Place 1 Drop in 5 mL 3 0 Active solution both eyes every morning. methotrexate 2.5 mg Take 5 tablets 60 tablet 1 09/28/2019 06/0 Active tabletIndications: by mouth weekly 0 Sjogren's syndrome, with unspecified organ involvement, Polyarthralgia foLIC acid 1 mg Take 1 tablet by 90 tablet 1 09/28/2019 Active tabletIndications: mouth daily for 0 Sjogren's syndrome, with 90 days. unspecified organ involvement, Polyarthralgia hydroxychloroquine Take 1.5 tablets 135 tablet 1 09/28/2019 Active (PLAQUENIL) 200 mg by mouth daily 0 tabletIndications: for 90 days. Sjogren's syndrome, with unspecified organ involvement, Polyarthralgia meloxicam 15 mg Take 1 tablet 30 tablet 0 10/06/2019 Active tabletIndications: daily as needed Sjogren's syndrome, with for joint pain unspecified organ involvement, Polyarthralgia documented as of this encounter (statuses as of 11/06/2019) Active Problems Patient Care Coordination Note Diabetes [...] record my blood glucose at 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 non-steroidal anti-inflamma tories (nsaid) [...] shoulder region 03/31/2011 Overview: ICD10 Diagnosis Term Child Care Specialist Utility Myalgia and myositis 03/27/2011 Overview: ICD10 Diagnosis Term Child Care Specialist Utility Other specified crystal arthropathies, shoulder region 03/27/2011 Sjogren's syndrome: sicca, + SSA 03/13/2011 Polyarthralgia: RF 30, CCP 21 03/13/2011 Elevated rheumatoid factor 03/13/2011 Lumbago 03/13/2011 documented as of this encounter (statuses as of 11/06/2019) Resolved Problems Problem Noted Date Resolved Date Positive ALIA (antinuclear antibody) 1:320 04/12/2018 05/24/2018 documented as of this encounter (statuses as of 11/06/2019) Immunizations Name Administration Dates Next Due Influenza [...] Treatment Date Type Specialty Care Team Description 11/29/2019 Office Visit Ophthalmology Adelita Pham MD [facility] [address] [place] [address] [phone] 12/11/2019 Telemedicine Visit Endocrinology Diabetes Kesire Korina mclaughlin MD & Metabolism [address] [place] [address] [phone] 12/28/2019 Office Visit Dermatology Marisa Sims MD [address] [place] [phone] 01/02/2020 Office Visit Rheumatology Marley Shah MD [address] [place] [address] [address] [place], [place] [phone] 05/02/2020 Appointment Radiology Radiology [address] [place] [address] 07/01/2020 Office Visit Obstetrics & Gynecology Amy Ibarra, ALEXIS-C [address] [place] [phone] Health Maintenance Due Date Last Done Comments [...] Address Typ e / Group Dates [facility] xxxxxxxxx 2014-Olga Medic aid HEALTHCARE COMM STAR PLUS nt PLAN - MANAGED MEDICAID [id number] MEDICAID OF xxxxxxxxx 2017-Pre [phone] Med icaid [place] sent [id number] [place] [address] [facility] TOTAL [facility] TOTAL [id number] 2018-Olga rider VISION VISION nt documented as of this encounter Advance Directives Type Date Recorded 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
[2019-11-09] MEDS ORDERED: HYDROCODONE/APAP 7.5/325 MG TAB ONE (22:38)
--- NOTE | 2019-11-09 23:29 | EDPHYS ---
Physician Documentation [facility] Name: Jackeline Weinstein Age: 54 yrs Sex: Female : 1965 Arrival Date: 11/09/2019 Time: 21:36 Bed 5 Private MD: Nomi Gallego HPI: 11/08 22:25 This 54 yrs old Female presents to ER via Ambulatory with complaints of Wrist cp Pain - -Right. 22:25 The patient or guardian reports decreased range of motion, deformity, injury, pain. The cp complaints affect the right wrist diffusely. Context: The problem was sustained at home, resulted from a fall. Onset: The symptoms/episode began/occurred today. Associated signs and symptoms: Pertinent positives: tingling distally. Historical: - Allergies: 21:51 Lyrica; ll1 - Home Meds: 22:01 Allopurinol 50 mg Oral 2 times per day [Active]; bupropion HCl 300 mg Oral Tb24 once lp1 daily [Active]; Buspirone Oral [Active]; furosemide 20 mg Oral tab 1 tab once daily [Active]; gabapentin 800 mg Oral tab 1 tab 3 times per day [Active]; hydrocodone-acetaminophen 5-163 mg/7.5mL(7.5mL) Oral soln [Active]; hydroxychloroquine 200 mg Oral tab 1 tab 2 times per day [Active]; indomethacin 25 mg Oral cap 1 cap daily [Active]; Klonopin Oral [Active]; lamotrigine 100 mg Oral TbDL 1 tab once daily [Active]; lisinopril Oral [Active]; lisinopril-hydrochlorothiazide 20-12.5 mg Oral tab 1 tab once daily [Active]; metaxalone 800 mg Oral tab 1 tab twice a day [Active]; Prozac Oral [Active]; rifampin 300 mg Oral cap 2 caps once daily [Active]; - PMHx: 21:51 Hypertension; Chronic pain; Rheumatoid Arthritis; Gout; Fibromyalgia; ll1 - PSHx: 21:51 Gastric Bypass; ; ll1 - Immunization history:: Adult Immunizations up to date. - Social history:: Patient/guardian denies using alcohol, street drugs, tobacco products, Smoking status: Patient denies any tobacco usage or history of. ROS: 22:30 MS/extremity: Positive for injury or acute deformity, decreased range of motion, pain, cp paresthesias, tenderness. 22:30 All other systems are negative. cp Exam: 22:30 Constitutional: The patient appears in no acute distress, alert, awake, cp non-diaphoretic, non-toxic, well developed, well nourished, uncomfortable. 22:30 Head/Face: Normocephalic, atraumatic. cp 22:30 Musculoskeletal/extremity: Extremities: grossly normal except: noted in the right wrist: decreased ROM, deformity, pain, swelling, tenderness, Perfusion: the extremity is normally perfused throughout, the right hand Tingling of extremity. 22:30 Skin: intact right wrist. 22:30 Neuro: Orientation: to person, place \T\ time. Mentation: is normal. Vital Signs: 21:49 BP 172 / 86; Pulse 77; Resp 18; Temp 98.0; Pulse Ox 100% ; Pain 10/10; ll1 11/09 00:00 BP 148 / 77; Pulse 68; Resp 18; Pulse Ox 98% ; ea Procedures: 00:15 Splinting: Splint applied to right wrist using Orthoglass splint, sling, sugar tong cp type. applied by tech. Examined by me, post splint application: neurovascular intact, Patient tolerated well. MDM: 11/08 21:50 Patient medically screened. ekaterina 22:30 Differential diagnosis: dislocation, open fracture, closed fracture. cp 23:23 Data reviewed: vital signs, nurses notes, radiologic studies, plain films. Test cp interpretation: by ED physician or midlevel provider: xrays of right wrist show distal radius fracture with ulna styloid fracture. Counseling: I had a detailed discussion with the patient and/or guardian regarding: the historical points, exam findings, and any diagnostic results supporting the discharge/admit diagnosis, radiology results, the need for outpatient follow up, for definitive care, a orthopedic surgeon, to return to the emergency department if symptoms worsen or persist or if there are any questions or concerns that arise at home. Response to treatment: the patient's symptoms have markedly improved after treatment, and as a result, I will discharge patient. 23:28 ED course: Patient reports having prescribed hydrocodone at home for pain and not cp needing prescription for pain medications. 11/08 22:21 Order name: XRAY Wrist RIGHT 3 view cp 11/08 23:21 Order name: Sling; Complete Time: 00:01 cp 11/08 23:21 Order name: Sugar Tong Forearm Splint; Complete Time: 00:01 cp Administered Medications: 22:36 Drug: Hydrocodone-Acetaminophen (7.5 mg-325 mg) 1 tabs {Note: RASS 0.} Route: PO; lp1 23:20 Follow up: Response: No adverse reaction; Pain is unchanged, physician notified ea 23:30 Drug: Demerol 25 mg {Note: RASS 1.} Route: IM; Site: left deltoid; ea 11/09 00:01 Follow up: Response: No adverse reaction ea Disposition: 11/08 23:45 Chart complete. cp 11/09 11:11 Co-signature as Attending Physician, Nomi Amaya MD I agree with the assessment and ekaterina plan of care. Disposition: 11/09/19 23:28 Discharged to Home. Impression: Colles' fracture of right radius, Fracture of ulna styloid process - right. - Condition is Stable. - Discharge Instructions: Colles Fracture. - Medication Reconciliation Form, Thank You Letter, Antibiotic Education, Prescription Opioid Use form. - Follow up: Jono Diamond MD; When: 2 - 3 days; Reason: distal radius fracture. - Problem is new. - Symptoms have improved. Signatures: Dispatcher [employer] EDMS Nomi Amaya MD MD cha Pena, Laura, RN RN lp1 Nomi Pagan PA PA cp Antunez, Elena, RN RN ea Lewis, Lynsay RN RN ll1 Corrections: (The following items were deleted from the chart) 00:17 11/08 23:28 11/09/2019 23:28 Discharged to Home. Impression: Colles' fracture of right ea radius; Fracture of ulna styloid process - right. Condition is Stable. Forms are Medication Reconciliation Form, Thank You Letter, Antibiotic Education, Prescription Opioid Use. Follow up: Dr. Jono Diamond; When: 2 - 3 days; Reason: distal radius fracture. Problem is new. Symptoms have improved. cp
--- NOTE | 2019-11-09 23:29 | ER ---
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 Reports landing ll1 on right wrist, pain since. Coronavirus screen: Proceed with normal triage. Patient denies a cough. Patient denies shortness of breath or difficulty breathing. Patient denies measured and/or subjective temperature greater than 100.4F prior to today's visit. Patient denies travel on a cruise ship or to a country the [facility] currently lists as an affected area. Patient denies contact with known and/or suspected case of COVID-19. Ebola Screen: Patient denies travel to an Ebola-affected area in the 21 days before illness onset. Initial Sepsis Screen: Does the patient meet any 2 criteria? No. Patient's initial sepsis screen is negative. Risk Assessment: Do you want to hurt yourself or someone else? Patient reports no desire to harm self or others. Onset of symptoms was November 09, 2019. 21:49 Method Of Arrival: Ambulatory ll1 21:49 Acuity: CEHLSY 4 ll1 22:00 Initial Sepsis Screen: Does the patient have a suspected source of infection? No. lp1 Patient's initial sepsis screen is negative. Historical: - Allergies: 21:51 Lyrica; ll1 - Home Meds: 22:01 Allopurinol 50 mg Oral 2 times per day [Active]; bupropion HCl 300 mg Oral Tb24 once lp1 daily [Active]; Buspirone Oral [Active]; furosemide 20 mg Oral tab 1 tab once daily [Active]; gabapentin 800 mg Oral tab 1 tab 3 times per day [Active]; hydrocodone-acetaminophen 5-163 mg/7.5mL(7.5mL) Oral soln [Active]; hydroxychloroquine 200 mg Oral tab 1 tab 2 times per day [Active]; indomethacin 25 mg Oral cap 1 cap daily [Active]; Klonopin Oral [Active]; lamotrigine 100 mg Oral TbDL 1 tab once daily [Active]; lisinopril Oral [Active]; lisinopril-hydrochlorothiazide 20-12.5 mg Oral tab 1 tab once daily [Active]; metaxalone 800 mg Oral tab 1 tab twice a day [Active]; Prozac Oral [Active]; rifampin 300 mg Oral cap 2 caps once daily [Active]; - PMHx: 21:51 Hypertension; Chronic pain; Rheumatoid Arthritis; Gout; Fibromyalgia; ll1 - PSHx: 21:51 Gastric Bypass; ; ll1 - Immunization history:: Adult Immunizations up to date. - Social history:: Patient/guardian denies using alcohol, street drugs, tobacco products, Smoking status: Patient denies any tobacco usage or history of. Screenin:59 Abuse screen: Denies threats or abuse. Denies injuries from another. Nutritional lp1 screening: No deficits noted. Tuberculosis screening: No symptoms or risk factors identified. Fall Risk None identified. Assessment: 21:58 General: Appears in no apparent distress. Behavior is appropriate for age. Pain: lp1 Complains of pain in dorsal aspect of right wrist Pain currently is 8 out of 10 on a pain scale. Quality of pain is described as aching. Neuro: No deficits noted. Cardiovascular: Patient's skin is warm and dry. Respiratory: Respiratory effort is even, unlabored. GI: No signs and/or symptoms were reported involving the gastrointestinal system. : No signs and/or symptoms were reported regarding the genitourinary system. EENT: No signs and/or symptoms were reported regarding the EENT system. Derm: Skin is pink, warm \T\ dry. Musculoskeletal: Range of motion: limited in right wrist Swelling present in dorsal aspect of right wrist. 23:00 Reassessment: Patient and/or family updated on plan of care and expected duration. Pain ea level reassessed. Patient is alert, oriented x 3, equal unlabored respirations, skin warm/dry/pink. 11/09 00:16 Reassessment: Patient and/or family updated on plan of care and expected duration. Pain ea level reassessed. Patient is alert, oriented x 3, equal unlabored respirations, skin warm/dry/pink. Discharge instruction given to patient, verbalized the understanding of instruction pt left via wheelchair, tolerating well. Vital Signs: 11/08 21:49 BP 172 / 86; Pulse 77; Resp 18; Temp 98.0; Pulse Ox 100% ; Pain 10/10; ll1 11/09 00:00 BP 148 / 77; Pulse 68; Resp 18; Pulse Ox 98% ; ea ED Course: 11/08 21:36 Patient arrived in ED. cl3 21:48 Kenzie Powell, RN is Primary Nurse. lp1 21:49 Nomi Pagan PA is PHCP. cp 21:49 Nomi Amaya MD is Attending Physician. cp 21:50 Triage completed. ll1 21:52 Arm band placed on Patient placed in an exam room, on a stretcher. ll1 21:58 Ice pack applied to right wrist. lp1 21:59 Patient has correct armband on for positive identification. lp1 22:54 XRAY Wrist RIGHT 3 view In Process Unspecified. EDMS 23:25 Jono Diamond MD is Referral Physician. cp 11/09 00:02 No provider procedures requiring assistance completed. Patient did not have IV access ea during this emergency room visit. 00:04 Orthoglass splint: Sugar tong splint applied on right arm. Sling applied to right arm. oe Administered Medications: 11/08 22:36 Drug: Hydrocodone-Acetaminophen (7.5 mg-325 mg) 1 tabs {Note: RASS 0.} Route: PO; lp1 23:20 Follow up: Response: No adverse reaction; Pain is unchanged, physician notified ea 23:30 Drug: Demerol 25 mg {Note: RASS 1.} Route: IM; Site: left deltoid; ea 11/09 00:01 Follow up: Response: No adverse reaction ea Outcome: 11/08 23:28 Discharge ordered by . cp 11/09 00:16 Discharged to home via wheelchair, with family. ea Condition: stable Discharge instructions given to patient, Instructed on discharge instructions, follow up and referral plans. Demonstrated understanding of instructions, follow-up care. 00:17 Patient left the ED. ea Signatures: Dispatcher [employer] EDMS Kenzie Powell, RN RN lp1 Nomi Pagan PA PA cp Adin Martin Elena, RN RN ea Lewis, Charde cl3 Janice Foley RN RN ll1
[2019-11-09] MEDS ORDERED: MEPERIDINE HCL 25 MG/0.5 ML ONE (23:31)
[2019-11-10 00:23] VITALS: TEMP 98
[2019-11-10 00:24] VITALS: BP 148/77; O2SAT 98
--- NOTE | 2019-11-10 08:32 | RAD REPORT ---
EXAM DESCRIPTION: RAD - Wrist Right 3 View - 11/09/2019 10:53 pm CLINICAL HISTORY: fall;Pain Pain COMPARISON: No comparisons FINDINGS: Intra-articular distal radius fracture is seen with mild impaction. Ulnar styloid fracture also present. Moderate soft tissue swelling is evident.
== END 2019-11-10 00:17 | disposition home or self-care (01) ==
LOC: ER 21:35
PROC: 2W3CX1Z Immobilization of Right Lower Arm using Splint (ICD-10-PCS; principal; 2019-11-10)
DX: S52.531A Colles' fracture of right radius, initial encounter for closed fracture (principal); S52.611A Displaced fracture of right ulna styloid process, initial encounter for closed fracture; W19.XXXA Unspecified fall, initial encounter; Y93.9 Activity, unspecified; Y92.009 Unspecified place in unspecified non-institutional (private) residence as the place of occurrence of the external cause; I10 Essential (primary) hypertension; Z88.8 Allergy status to other drugs, medicaments and biological substances
CPT/HCPCS: 73110; 96372; 99283; 29125; J2175

== ENCOUNTER 2023-06-21 10:53 | Emergency (ER) | payer OTHER ==
[2023-06-21 11:29] LABS: Absolute Lymphocytes (CBC) 1.6 K/uL (0.7-4.9); Hematocrit 34.1 % (36.0-45.0); Lymphocytes % 34.3 % (15.3-44.8); MCV 99.5 fL (80-100); Platelets 115 thou/uL (152-406); RBC Red Blood Cell Count 3.43 M/uL (3.86-4.86)
--- OUTSIDE RECORDS SUMMARY | 2023-06-21 11:32 | XMS REPORT | Continuity of Care Document ---
:1965 Author Organization [facility] t Address [address] [facility] [address] [place] [address] Care Team Providers Name Role Phone Deng Curtis Primary Care Physician James Willard Attending Clinician Unavailable Felipe Rosas Attending Clinician Unavailable Gretel Russ Attending Clinician Unavailable ANTHONY AHMADI Attending Clinician Unavailable COLT HOLDEN Attending Clinician Unavailable KING PERRY Attending Clinician Unavailable FREDERIC MO Attending Clinician Unavailable FREDERIC MO Attending Clinician Unavailable KARELY POSADAS Attending Clinician Unavailable KARELY POSADAS Attending Clinician Unavailable CHAYO APODACA Attending Clinician Unavailable Vtc-Lab Attending Clinician Unavailable NASH SWARTZ Attending Clinician Unavailable Sendy Saavedra MA Attending Clinician Unavailable KARELY POSADAS Attending Clinician Unavailable Anthony Ahmadi MD Attending Clinician Doctor Unassigned, [place] Attending Clinician Unavailable Alexandria Castro RN Attending Clinician Unavailable HILARY NELSON Attending Clinician Unavailable HILARY NELSON Attending Clinician Unavailable Guilherme LYNN, Shashi Attending Clinician TOMMY CURIEL Attending Clinician Unavailable Julio GIRALDO, Bettie Ogden Attending Clinician Unavailable Martin Rojo MD Attending Clinician [phone] Nancy Craig MA Attending Clinician Unavailable Karyn Rendon Attending Clinician Unavailable MEHDI RIOS Attending Clinician Unavailable Mehdi Rios PA-C Attending Clinician MICHEL COVARRUBIAS Attending Clinician Unavailable MICHEL COVARRUBIAS Attending Clinician Unavailable SHANE CASTILLO Attending Clinician Unavailable MARTIN ROJO Attending Clinician Unavailable JASWANT SANFORD Attending Clinician Unavailable Shane Castillo MD Attending Clinician NICOLE MARX Attending Clinician Unavailable Nicole Marx MD Attending Clinician [phone] SHASHI MCCLURE Attending Clinician Unavailable Sunday Liu MD Attending Clinician SAM WEAVER Attending Clinician Unavailable Frantz Santiago MD Attending Clinician BUBBA MARX Attending Clinician Unavailable Justice Dexter MD Attending Clinician Marilyn Weston MD Attending Clinician MARILYN WESTON Attending Clinician Unavailable Mike De La Garza MD Attending Clinician Liseth Sesay MD Attending Clinician Unavailable 1, [facility] Attending Clinician Unavailable Lotus Griffith LMSW Attending Clinician Unavailable Antonino Bailey DO Attending Clinician Emma Shah MD Attending Clinician DESEAN ORTEGA Attending Clinician Unavailable Po, [facility] Main Attending Clinician Unavailable BRIDGETTE LEHMAN Attending Clinician Unavailable SUNDAY LIU Attending Clinician Unavailable MIKE DE LA GARZA Attending Clinician Unavailable EBENEZER NAVARRO Attending Clinician Unavailable PAVAN LOPEZ Attending Clinician Unavailable ROSEMARIE NO Attending Clinician Unavailable EMMA SHAH Attending Clinician Unavailable Yeison GIRALDO, Nomi Attending Clinician Unavailable Radiology Attending Clinician Unavailable RADIOLOGY Attending Clinician Unavailable ALMA VIRAMONTES Attending Clinician Unavailable LUCIO CASAS Attending Clinician Unavailable Gloria العراقي, Apple Alexander Attending Clinician JOHN BUI Attending Clinician Unavailable ANTHONY AHMADI Admitting Clinician Unavailable COLT HOLDEN Admitting Clinician Unavailable FREDERIC MO Admitting Clinician Unavailable NICOLE MARX Admitting Clinician Unavailable AMAURI GAXIOLA Admitting Clinician Unavailable Payers Payer Name Policy Type Policy Number Effective Date Expiration Date S ynes [facility] [id number] 2014 PLUS 00:00:00 [place] [id number] [place] [id number] [place] [id number] [id number] [place] [id number] [id number] [facility] Problems Condition Condition Condition Status Onset Resolution Last Treating Co mments Source Name Details Category Date Date Treatment Clinician Date S/P S/P Disease Active Univers hysterecto hysterecto 2-19 it y of my my 00:: [place] [facility] Chronic Chronic Disease Active Univers gouty gouty 1-13 ity [facility] arthritis [facility] Morbid Morbid Disease Active Univers obesity obesity 1-13 ity of 00:: [place] [facility] Osteoarthr Osteoarthr Disease Active U nivers itis of itis of 1-13 ity of knee knee 00:00: [place] [facility] Type 2 Type 2 Disease Active Univers diabetes diabetes 1-13 ity of mellitus mellitus 00:00: [place] with other with other 00 Me dical specified specified Bran ch complicati complicati on on History of History of Disease Active 2019-0 U nivers gout gout 3-05 ity of 00:00: [place] [facility] 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 3-05 ity of 00:: [place] [facility] Rheumatoid Rheumatoid Disease Active 2020-0 U nivers factor factor 3-05 ity of positive positive 00:00: [place] 00 Medical Branch Positive Positive Disease Active Unive rs ALIA ALIA 3-05 ity of (antinucle [place]antinucle [place] [facility] antibody[place] antibody) Bran ch BMI BMI Disease Active 2018-07 Univers 40.0-44.9, 40.0-44.9, 2-04 it y of adult adult 00:00: [place] [facility] Long-term Long-term Disease Active 2017-07 Uni vers use of use of 1-28 ity of Plaquenil Plaquenil [place] Iron Iron Disease Active 2017-07 Univers deficiency deficiency 0-30 it y of anemia anemia 00:00: [place] [facility] Skin Skin Disease Active 2017-07 Univers depigmenta depigmenta 0-30 it y of tion tion 00:00: [place] [facility] Skin Skin Disease Active 2017-07 Univers depigmenta depigmenta 0-30 it y of tion tion 00:00: [place] [facility] Positive Positive Disease Active Unive rs QuantiFERO QuantiFERO 9-26 it y of N-TB Gold N-TB Gold 00:[place] 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 9-24 ity of enzyme enzyme 00:00: [place] activity: activity: 00 Medi julian 23.4 23.4 Branch 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: nosis D: 9-21 ity of 14(03/2018) 14(03/2018) [place] [facility] [place] Well woman Well woman Disease Active 2017- U nivers exam exam 9-18 ity of 00:00: [place] [facility] Idiopathic Idiopathic Disease Active U nivers gout of gout of 9-18 ity of multiple multiple 00:00: [place] sites sites 00 Medical Branch ESR raised ESR raised Disease Active 2017- U nivers 9-18 ity of 00:00: [place] 00 Medical Branch At risk At risk Disease Active Univers for bone for bone 9-18 ity of density density 00:00: [place] loss loss Medical Branch Diabetes Diabetes Disease Active Unive rs mellitus mellitus 2-08 ity of type 2 type 2 00:00: [place] without without 00 Medical retinopath retinopath Br anch y y Glaucoma Glaucoma Disease Active Unive rs suspect suspect 2-08 ity of 00:00: [place] [facility] Dry eyes Dry eyes Disease Active Overview: Un violeta 2-08 Formattin ity of 00:00: g of this [place] 00 note Medical might be Branch different from the original. 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 Will stop HCTZ due to goutStart lisinopri l 40mg daily- advised to follow home BP measureme nts Essential Essential Disease Active 2011-07 Last Uni vers hypertensi hypertensi 0-12 Assessmen ity of on on 00:00: t & Plan: [place] Formattin Medical g of this Branch note might be different from the original. Will stop HCTZ due to goutStart lisinopri l 40mg daily- advised to follow home BP measureme nts Fibromyalg Fibromyalg Disease Active 2011-07 U nivers ia ia 0-12 ity of 00:00: [place] 00 Medical Branch Rotator Rotator Disease Active 2010-07 Univers cuff tear, cuff tear, 0-31 it y of right right 00:00: 00 Medical Branch Arthropath Arthropath Disease Active Overview : Univers y of y of 9-06 Formattin ity of shoulder shoulder 00:00: g of this [place] as region region 00 note Medical might be Branch different from the original. ICD10 Diagnosis Term [employer] Myalgia Myalgia Disease Active Overview: Univ ers and and 03-27 Formattin ity of myositis myositis 00:00: g of this [place] 00 note Medical might be Branch different from the original. ICD10 Diagnosis Term [employer] Other Other Disease Active Univers specified specified 03-27 ity of crystal crystal 00:00: [place] arthropath arthropath 00 Me dical ies, ies, Branch shoulder shoulder region region Sjogren's Sjogren's Disease Active Uni vers syndrome: syndrome: 03-13 ity of sicca, + sicca, + 00:00: [place] SSA SSA Medical Branch Multiple Multiple Disease Active Unive rs joint pain joint pain 03-13 it y of 00:00: Medical Branch Elevated Elevated Disease Active Unive rs rheumatoid rheumatoid 03-13 it y of factor factor 00:00: Medical Branch Lumbago Lumbago Disease Active Univers 03-13 ity of 00:00: Medical Branch [id number] Primary Problem Active Comm on osteoarthr Spirit itis of [facility] right knee [facility] [id number] Primary Problem Active Comm on osteoarthr Spirit itis of - [facility] left knee [facility] Allergies, Adverse Reactions, Alerts Allergy Allergy Status Severity Reaction(s) Onset Inactive Treating Comm ents Source Name Type Date Date Clinician PREGABAL DRUG Active Swelling 2017-07 Univer s IN INGREDI 0-30 ity of 00:00: 00 Medical Branch Pregabal Propensi Active Swelling 2017-07 Univ ers in ty to 0-30 ity of adverse 00:00: [place] reaction 00 Medical s Branch Pregabal Drug Active Swelling 2017-07 Univer s in Allergy 0-30 ity of 00:00: [place] [facility] [place] Social History Social Habit Start Date Stop Date Quantity Comments Source Sex Assigned At [facility] - [facility] Gender identity Universit y [facility] Sexual orientation Univer sity [facility] Alcohol intake 2023-05-13 2023-05-13 Ex-drinker University of 00:00:00 00:00:00 (finding) [facility] Exposure to 2022-09-25 2022-10-05 Not sure [facility] SARS-CoV-2 (event) 00:00:00 12:06:00 [facility] Tobacco use and 2022-09-09 2022-09-09 Smokeless Universit y of exposure 00:00:00 00:00:00 tobacco non-user [facility] dical Branch History of Social 2021-01-16 2021-01-16 Univers ity of function 00:00:00 00:00:00 [place] [facility] [place] History SDOH 2020-07-01 2020-07-01 99 University o f Alcohol Frequency 00:00:00 00:00:00 [place] M edical Branch History SDOH 2020-07-01 2020-07-01 99 University o f Alcohol Std Drinks 00:00:00 00:00:00 [facility] History SDOH 2020-07-01 2020-07-01 99 University o f Alcohol Binge 00:00:00 00:00:00 [place] Medic al [facility] Alcohol Comment 2020-07-01 2020-07-01 rare Universit y of 00:00:00 00:00:00 [facility] History of tobacco 1996-03-13 Cigarette Smoker University of use 00:00:00 [facility] Smoking Status Start Date Stop Date Source Ex-smoker 2022-09-09 00:00:00 2022-09-09 00:00:00 Universi ty of [facility] Never Smoker [facility] Medications Ordered Filled Start Stop Current Ordering Indication Dosage Frequency Signature Comments Components Source Medication Medication Date Date Medication? Clinician (SIG) Name Name leflunomide 2022-07 Yes [id number] 20mg Take 1 Univers 20 mg 0-19 tablet by ity of tablet 00:00: mouth in [place] 00 the Medical morning. Branch leflunomide 2022-07 Yes [id number] 20mg Take 1 Univers 20 mg 0-19 tablet by ity of tablet 00:00: mouth in [place] the Medical morning. Branch leflunomide 2022-07 Yes [id number] 20mg Take 1 Univers 20 mg 0-19 tablet by ity of tablet 00:00: mouth in [place] [address] the Medical morning. Branch leflunomide 2022-07 Yes [id number] 20mg Take 1 Univers 20 mg 0-19 tablet by ity of tablet 00:00: mouth in [place] [address] the Medical morning. Branch leflunomide 2023-1 Yes [id number] 20mg Take 1 Univers 20 mg 0-19 tablet by ity of tablet 00:00: mouth in [place] the Medical morning. Branch leflunomide 3-1 Yes [id number] 20mg Take 1 Univers 20 mg 0-19 tablet by ity of tablet 00:00: mouth in [place] the Medical morning. Branch leflunomide 3-1 Yes [id number] 20mg Take 1 Univers 20 mg 0-19 tablet by ity of tablet 00:00: mouth in [place] the Medical morning. Branch leflunomide 3-1 Yes [id number] 20mg Take 1 Univers 20 mg 0-19 tablet by ity of tablet 00:00: mouth in [place] the Medical morning. Branch foLIC acid 3-0 Yes [id number] 2mg Take 2 Univers 1 mg tablet 8-31 tablets by it y of 00:00: mouth in [place] the Medical morning. Branch foLIC acid 3-0 Yes [id number] 2mg Take 2 Univers 1 mg tablet 8-31 tablets by it y of 00:00: mouth in [place] the Medical morning. Branch foLIC acid 2023-0 Yes [id number] 2mg Take 2 Univers 1 mg tablet 8-31 tablets by it y of 00:00: mouth in [place] the Medical morning. Branch foLIC acid 2023-0 Yes [id number] 2mg Take 2 Univers 1 mg tablet 8-31 tablets by it y of 00:00: mouth in [place] the Medical morning. Branch foLIC acid 2023-0 Yes [id number] 2mg Take 2 Univers 1 mg tablet 8-31 tablets by it y of 00:00: mouth in [place] the Medical morning. Branch foLIC acid 2023-0 Yes [id number] 2mg Take 2 Univers 1 mg tablet 8-31 tablets by it y of 00:00: mouth in [place] the Medical morning. Branch foLIC acid 2023-0 Yes [id number] 2mg Take 2 Univers 1 mg tablet 8-31 tablets by it y of 00:00: mouth in [place] the Medical morning. Branch foLIC acid 2023-0 Yes [id number] 2mg Take 2 Univers 1 mg tablet 8-31 tablets by it y of 00:00: mouth in [place] the Medical morning. Branch foLIC acid 2023-0 Yes [id number] 2mg Take 2 Univers 1 mg tablet 8-31 tablets by it y of 00:00: mouth in [place] 00 the Medical morning. Branch foLIC acid 2022-0 Yes [id number] 2mg Take 2 Univers 1 mg tablet 8-31 tablets by it y of 00:00: mouth in [place] the Medical morning. Branch foLIC acid 2022-0 Yes [id number] 2mg Take 2 Univers 1 mg tablet 8-31 tablets by it y of 00:00: mouth in [place] the Medical morning. Branch foLIC acid 2022-0 Yes [id number] 2mg Take 2 Univers 1 mg tablet 8-31 tablets by it y of 00:00: mouth in [place] the Medical morning. Branch foLIC acid 2022-0 Yes [id number] 2mg Take 2 Univers 1 mg tablet 8-31 tablets by it y of 00:00: mouth in [place] the Medical morning. Branch foLIC acid 2022-0 Yes [id number] 2mg Take 2 Univers 1 mg tablet 8-31 tablets by it y of 00:00: mouth in [place] the Medical morning. Branch methotrexat 2022-0 2022- Yes [id number] 10mg Take 4 Univers e 2.5 mg 8-31 11-30 tablets by ity of tablet 00:00: 05:59 mouth [place] 00 :00 weekly Medical Branch methotrexat 3-0 2022- Yes [id number] 10mg Take 4 Univers e 2.5 mg 8-31 11-30 tablets by ity of tablet 00:00: 05:59 mouth [place] 00 :00 weekly Medical Branch methotrexat 3-0 2022- Yes [id number] 10mg Take 4 Univers e 2.5 mg 8-31 11-30 tablets by ity of tablet 00:00: 05:59 mouth [place] 00 :00 weekly Medical Branch methotrexat 3-0 3- Yes [id number] 10mg Take 4 Univers e 2.5 mg 8-31 11-30 tablets by ity of tablet 00:00: 05:59 mouth [place] 00 :00 weekly Medical Branch methotrexat 3-0 2022- Yes [id number] 10mg Take 4 Univers e 2.5 mg 8-31 11-30 tablets by ity of tablet 00:00: 05:59 mouth [place] 00 :00 weekly Medical Branch HYDROXYCHLO 3-0 Yes [id number] TAKE 2 Univers ROQUINE 200 6-06 TABLETS BY it y of mg tablet 00:00: MOUTH [place] 00 EVERY Medical MORNING Branch HYDROXYCHLO 2023-0 Yes [id number] TAKE 2 Univers ROQUINE 200 6-06 TABLETS BY it y of mg tablet 00:00: MOUTH [place] 00 EVERY Medical MORNING Branch HYDROXYCHLO 3-0 Yes [id number] TAKE 2 Univers ROQUINE 200 6-06 TABLETS BY it y of mg tablet 00:00: MOUTH [place] 00 EVERY Medical MORNING Branch HYDROXYCHLO 3-0 Yes [id number] TAKE 2 Univers ROQUINE 200 6-06 TABLETS BY it y of mg tablet 00:00: MOUTH [place] 00 EVERY Medical MORNING Branch HYDROXYCHLO 2023-0 Yes [id number] TAKE 2 Univers ROQUINE 200 6-06 TABLETS BY it y of mg tablet 00:00: MOUTH [place] 00 EVERY Medical MORNING Branch HYDROXYCHLO 3-0 Yes [id number] TAKE 2 Univers ROQUINE 200 6-06 TABLETS BY it y of mg tablet 00:00: MOUTH [place] 00 EVERY Medical MORNING Branch HYDROXYCHLO 3-0 Yes [id number] TAKE 2 Univers ROQUINE 200 6-06 TABLETS BY it y of mg tablet 00:00: MOUTH [place] 00 EVERY Medical MORNING Branch HYDROXYCHLO 3-0 Yes [id number] TAKE 2 Univers ROQUINE 200 6-06 TABLETS BY it y of mg tablet 00:00: MOUTH [place] 00 EVERY Medical MORNING Branch HYDROXYCHLO 3-0 Yes [id number] TAKE 2 Univers ROQUINE 200 6-06 TABLETS BY it y of mg tablet 00:00: MOUTH [place] 00 EVERY Medical MORNING Branch HYDROXYCHLO 3-0 Yes [id number] TAKE 2 Univers ROQUINE 200 6-06 TABLETS BY it y of mg tablet 00:00: MOUTH [place] 00 EVERY Medical MORNING Branch HYDROXYCHLO 3-0 Yes [id number] TAKE 2 Univers ROQUINE 200 6-06 TABLETS BY it y of mg tablet 00:00: MOUTH [place] 00 EVERY Medical MORNING Branch HYDROXYCHLO 2023-0 Yes [id number] TAKE 2 Univers ROQUINE 200 6-06 TABLETS BY it y of mg tablet 00:00: MOUTH [place] 00 EVERY Medical MORNING Branch HYDROXYCHLO 3-0 Yes [id number] TAKE 2 Univers ROQUINE 200 6-06 TABLETS BY it y of mg tablet 00:00: MOUTH [place] 00 EVERY Medical MORNING Branch HYDROXYCHLO 3-0 Yes [id number] TAKE 2 Univers ROQUINE 200 6-06 TABLETS BY it y of mg tablet 00:00: MOUTH [place] 00 EVERY Medical MORNING Branch FOLIC ACID 3-0 Yes [id number] TAKE 1 Univers 1 mg tablet 6-06 TABLET BY ity of 00:00: MOUTH [place] 00 EVERY DAY Medical Branch HYDROXYCHLO 2023-0 Yes [id number] TAKE 2 Univers ROQUINE 200 6-06 TABLETS BY it y of mg tablet 00:00: MOUTH [place] 00 EVERY Medical MORNING Branch FOLIC ACID 2023-0 Yes [id number] TAKE 1 Univers 1 mg tablet 6-06 TABLET BY ity of 00:00: MOUTH [place] 00 EVERY DAY Medical Branch HYDROXYCHLO 2023-0 Yes [id number] TAKE 2 Univers ROQUINE 200 6-06 TABLETS BY it y of mg tablet 00:00: MOUTH [place] 00 EVERY Medical MORNING Branch FOLIC ACID 2023-0 Yes [id number] TAKE 1 Univers 1 mg tablet 6-06 TABLET BY ity of 00:00: MOUTH [place] 00 EVERY DAY Medical Branch HYDROXYCHLO 2023-0 Yes [id number] TAKE 2 Univers ROQUINE 200 6-06 TABLETS BY it y of mg tablet 00:00: MOUTH [place] 00 EVERY Medical MORNING Branch FOLIC ACID 2023-0 Yes [id number] TAKE 1 Univers 1 mg tablet 6-06 TABLET BY ity of 00:00: MOUTH [place] 00 EVERY DAY Medical Branch HYDROXYCHLO 2023-0 Yes [id number] TAKE 2 Univers ROQUINE 200 6-06 TABLETS BY it y of mg tablet 00:00: MOUTH [place] 00 EVERY Medical MORNING Branch FOLIC ACID 2023-0 Yes [id number] TAKE 1 Univers 1 mg tablet 6-06 TABLET BY ity of 00:00: MOUTH [place] 00 EVERY DAY Medical Branch HYDROXYCHLO 2023-0 Yes [id number] TAKE 2 Univers ROQUINE 200 6-06 TABLETS BY it y of mg tablet 00:00: MOUTH [place] 00 EVERY Medical MORNING Branch FOLIC ACID 2023-0 2023- No [id number] TAKE 1 Univers 1 mg tablet 6-06 08-31 TABLET BY it y of 00:00: 00:00 MOUTH [place] 00 :00 EVERY DAY Medical Branch METHOTREXAT 2023-0 Yes [id number] 20mg TAKE 8 Univers E 2.5 mg 6-05 TABLETS BY ity o f tablet 00:00: MOUTH [place] 00 WEEKLY Medical TAKE 4 Branch PILLS IN THE MORNING AND 4 PILLS IN THE EVENING METHOTREXAT 2023-0 Yes [id number] 20mg TAKE 8 Univers E 2.5 mg 6-05 TABLETS BY ity o f tablet 00:00: MOUTH [place] 00 WEEKLY Medical TAKE 4 Branch PILLS IN THE MORNING AND 4 PILLS IN THE EVENING METHOTREXAT 2023-0 Yes [id number] 20mg TAKE 8 Univers E 2.5 mg 6-05 TABLETS BY ity o f tablet 00:00: WEEKLY Medical TAKE 4 Branch PILLS IN THE MORNING AND 4 PILLS IN THE EVENING METHOTREXAT 2023-0 Yes [id number] 20mg TAKE 8 Univers E 2.5 mg 6-05 TABLETS BY ity o f tablet 00:00: WEEKLY Medical TAKE 4 Branch PILLS IN THE MORNING AND 4 PILLS IN THE EVENING METHOTREXAT 2023-0 Yes [id number] 20mg TAKE 8 Univers E 2.5 mg 6-05 TABLETS BY ity o f tablet 00:00: WEEKLY Medical TAKE 4 Branch PILLS IN THE MORNING AND 4 PILLS IN THE EVENING METHOTREXAT 2023-0 Yes [id number] 20mg TAKE 8 Univers E 2.5 mg 6-05 TABLETS BY ity o f tablet 00:00: WEEKLY Medical TAKE 4 Branch PILLS IN THE MORNING AND 4 PILLS IN THE EVENING METHOTREXAT 2023-0 2023- No [id number] 20mg TAKE 8 Univers E 2.5 mg 6-05 08-31 TABLETS BY ity of tablet 00:00: 00: 00 :00 WEEKLY Medical TAKE 4 Branch PILLS IN THE MORNING AND 4 PILLS IN THE EVENING METHOTREXAT 2023-0 Yes [id number] 20mg TAKE 8 Univers E 2.5 mg 5-11 TABLETS BY ity o f tablet 00:00: WEEKLY Medical TAKE 4 Branch PILLS IN THE MORNING AND 4 PILLS IN THE EVENING METHOTREXAT 2023-0 Yes [id number] 20mg TAKE 8 Univers E 2.5 mg 5-11 TABLETS BY ity o f tablet 00:00: WEEKLY Medical TAKE 4 Branch PILLS IN THE MORNING AND 4 PILLS IN THE EVENING METHOTREXAT 2023-0 Yes [id number] 20mg TAKE 8 Univers E 2.5 mg 5-11 TABLETS BY ity o f tablet 00:00: WEEKLY Medical TAKE 4 Branch PILLS IN THE MORNING AND 4 PILLS IN THE EVENING METHOTREXAT 2023-0 Yes [id number] 20mg TAKE 8 Univers E 2.5 mg 5-11 TABLETS BY ity o f tablet 00:00: WEEKLY Medical TAKE 4 Branch PILLS IN THE MORNING AND 4 PILLS IN THE EVENING METHOTREXAT 2023-0 Yes [id number] 20mg TAKE 8 Univers E 2.5 mg 5-11 TABLETS BY ity o f tablet 00:00: MOUTH [place] 00 WEEKLY Medical TAKE 4 Branch PILLS IN THE MORNING AND 4 PILLS IN THE EVENING METHOTREXAT 3-0 2023- No [id number] 20mg TAKE 8 Univers E 2.5 mg 5-11 06-05 TABLETS BY ity of tablet 00:00: 00:00 MOUTH [place] 00 :00 WEEKLY Medical TAKE 4 Branch PILLS IN THE MORNING AND 4 PILLS IN THE EVENING METHOTREXAT 3-0 2023- No [id number] 20mg TAKE 8 Univers E 2.5 mg 5-11 06-05 TABLETS BY ity of tablet 00:00: 00:00 MOUTH [place] 00 :00 WEEKLY Medical TAKE 4 Branch PILLS IN THE MORNING AND 4 PILLS IN THE EVENING foLIC acid 2023-0 Yes [id number] TAKE 1 Univers 1 mg tablet 4-19 TABLET BY ity of 00:00: MOUTH [place] 00 EVERY DAY Medical Branch foLIC acid 2023-0 Yes [id number] TAKE 1 Univers 1 mg tablet 4-19 TABLET BY ity of 00:00: MOUTH [place] 00 EVERY DAY Medical Branch foLIC acid 2023-0 Yes [id number] TAKE 1 Univers 1 mg tablet 4-19 TABLET BY ity of 00:00: MOUTH [place] 00 EVERY DAY Medical Branch foLIC acid 2023-0 Yes [id number] TAKE 1 Univers 1 mg tablet 4-19 TABLET BY ity of 00:00: MOUTH [place] 00 EVERY DAY Medical Branch foLIC acid 2023-0 Yes [id number] TAKE 1 Univers 1 mg tablet 4-19 TABLET BY ity of 00:00: MOUTH [place] 00 EVERY DAY Medical Branch foLIC acid 2023-0 Yes [id number] TAKE 1 Univers 1 mg tablet 4-19 TABLET BY ity of 00:00: MOUTH [place] 00 EVERY DAY Medical Branch foLIC acid 2023-0 Yes [id number] TAKE 1 Univers 1 mg tablet 4-19 TABLET BY ity of 00:00: MOUTH [place] 00 EVERY DAY Medical Branch foLIC acid 2023-0 Yes [id number] TAKE 1 Univers 1 mg tablet 4-19 TABLET BY ity of 00:00: MOUTH [place] 00 EVERY DAY Medical Branch foLIC acid 2023-0 Yes [id number] TAKE 1 Univers 1 mg tablet 4-19 TABLET BY ity of 00:00: MOUTH [place] 00 EVERY DAY Medical Branch foLIC acid 2023-0 2023- No [id number] TAKE 1 Univers 1 mg tablet 11-11 TABLET BY it y of 00:00: 00:00 MOUTH [place] 00 :00 EVERY DAY Medical Branch foLIC acid 2023-0 3- No [id number] TAKE 1 Univers 1 mg tablet 11-11 TABLET BY it y of 00:00: 00:00 MOUTH [place] 00 :00 EVERY DAY Medical Branch ibuprofen 2023-0 Yes 800mg Take 1 Unive rs 800 mg 3-23 tablet by ity of tablet 00:00: mouth [place] 00 every 8 Medical (eight) Branch hours as needed for Pain (scale 4-6). ibuprofen 2023-0 Yes 800mg Take 1 Unive rs 800 mg 3-23 tablet by ity of tablet 00:00: mouth [place] 00 every 8 Medical (eight) Branch hours as needed for Pain (scale 4-6). ibuprofen 2023-0 Yes 800mg Take 1 Unive rs 800 mg 3-23 tablet by ity of tablet 00:00: mouth [place] 00 every 8 Medical (eight) Branch hours as needed for Pain (scale 4-6). ibuprofen 2023-0 Yes 800mg Take 1 [facility] 800 mg 3-23 tablet by ity of tablet 00:00: mouth [place] 00 every 8 Medical (eight) Branch hours as needed for Pain (scale 4-6). ibuprofen 2023-0 Yes 800mg Take 1 [facility] rs 800 mg 3-23 tablet by ity of tablet 00:00: mouth [place] 00 every 8 Medical (eight) Branch hours as needed for Pain (scale 4-6). ibuprofen 2023-0 Yes 800mg Take 1 [facility] rs 800 mg 3-23 tablet by ity of tablet 00:00: mouth [place] 00 every 8 Medical (eight) Branch hours as needed for Pain (scale 4-6). ibuprofen 2023-0 Yes 800mg Take 1 [facility] rs 800 mg 3-23 tablet by ity of tablet 00:00: mouth [place] 00 every 8 Medical (eight) Branch hours as needed for Pain (scale 4-6). ibuprofen 2023-0 Yes 800mg Take 1 [facility] rs 800 mg 3-23 tablet by ity of tablet 00:00: mouth [place] 00 every 8 Medical (eight) Branch hours as needed for Pain (scale 4-6). ibuprofen 2023-0 Yes 800mg Take 1 [facility] rs 800 mg 3-23 tablet by ity of tablet 00:00: mouth [place] 00 every 8 Medical (eight) Branch hours as needed for Pain (scale 4-6). ibuprofen 2023-0 Yes 800mg Take 1 [facility] rs 800 mg 3-23 tablet by ity of tablet 00:00: mouth [place] 00 every 8 Medical (eight) Branch hours as needed for Pain (scale 4-6). ibuprofen 2023-0 Yes 800mg Take 1 [facility] rs 800 mg 3-23 tablet by ity of tablet 00:00: mouth [place] 00 every 8 Medical (eight) Branch hours as needed for Pain (scale 4-6). ibuprofen 2023-0 Yes 800mg Take 1 [facility] rs 800 mg 3-23 tablet by ity of tablet 00:00: mouth [place] 00 every 8 Medical (eight) Branch hours as needed for Pain (scale 4-6). ibuprofen 2023-0 Yes 800mg Take 1 [facility] rs 800 mg 3-23 tablet by ity of tablet 00:00: mouth [place] 00 every 8 Medical (eight) Branch hours as needed for Pain (scale 4-6). ibuprofen 2023-0 Yes 800mg Take 1 [facility] rs 800 mg 3-23 tablet by ity of tablet 00:00: mouth [place] 00 every 8 Medical (eight) Branch hours as needed for Pain (scale 4-6). ibuprofen 2023-0 Yes 800mg Take 1 [facility] rs 800 mg 3-23 tablet by ity of tablet 00:00: mouth [place] 00 every 8 Medical (eight) Branch hours as needed for Pain (scale 4-6). ibuprofen 2023-0 Yes 800mg Take 1 [facility] rs 800 mg 3-23 tablet by ity of tablet 00:00: mouth [place] 00 every 8 Medical (eight) Branch hours as needed for Pain (scale 4-6). ibuprofen 2023-0 Yes 800mg Take 1 [facility] rs 800 mg 3-23 tablet by ity of tablet 00:00: mouth [place] 00 every 8 Medical (eight) Branch hours as needed for Pain (scale 4-6). ibuprofen 2023-0 Yes 800mg Take 1 [facility] rs 800 mg 3-23 tablet by ity of tablet 00:00: mouth [place] 00 every 8 Medical (eight) Branch hours as needed for Pain (scale 4-6). ibuprofen 2023-0 Yes 800mg Take 1 [facility] rs 800 mg 3-23 tablet by ity of tablet 00:00: mouth [place] 00 every 8 Medical (eight) Branch hours as needed for Pain (scale 4-6). ibuprofen 2023-0 Yes 800mg Take 1 [facility] rs 800 mg 3-23 tablet by ity of tablet 00:00: mouth [place] 00 every 8 Medical (eight) Branch hours as needed for Pain (scale 4-6). ibuprofen 2023-0 Yes 800mg Take 1 [facility] rs 800 mg 3-23 tablet by ity of tablet 00:00: mouth [place] 00 every 8 Medical (eight) Branch hours as needed for Pain (scale 4-6). ibuprofen 2023-0 Yes 800mg Take 1 [facility] rs 800 mg 3-23 tablet by ity of tablet 00:00: mouth [place] 00 every 8 Medical (eight) Branch hours as needed for Pain (scale 4-6). ibuprofen 2023-0 Yes 800mg Take 1 [facility] rs 800 mg 3-23 tablet by ity of tablet 00:00: mouth [place] 00 every 8 Medical (eight) Branch hours as needed for Pain (scale 4-6). ibuprofen 2023-0 Yes 800mg Take 1 [facility] rs 800 mg 3-23 tablet by ity of tablet 00:00: mouth [place] 00 every 8 Medical (eight) Branch hours as needed for Pain (scale 4-6). ibuprofen 2023-0 Yes 800mg Take 1 [facility] rs 800 mg 3-23 tablet by ity of tablet 00:00: mouth [place] 00 every 8 Medical (eight) Branch hours as needed for Pain (scale 4-6). ibuprofen 2023-0 Yes 800mg Take 1 [facility] rs 800 mg 3-23 tablet by ity of tablet 00:00: mouth [place] 00 every 8 Medical (eight) Branch hours as needed for Pain (scale 4-6). ibuprofen 2023-0 Yes 800mg Take 1 [facility] rs 800 mg 3-23 tablet by ity of tablet 00:00: mouth [place] 00 every 8 Medical (eight) Branch hours as needed for Pain (scale 4-6). ibuprofen 2023-0 Yes 800mg Take 1 [facility] rs 800 mg 3-23 tablet by ity of tablet 00:00: mouth [place] 00 every 8 Medical (eight) Branch hours as needed for Pain (scale 4-6). ibuprofen 2023-0 Yes 800mg Take 1 [facility] rs 800 mg 3-23 tablet by ity of tablet 00:00: mouth [place] 00 every 8 Medical (eight) Branch hours as needed for Pain (scale 4-6). ibuprofen 2023-0 Yes 800mg Take 1 [facility] rs 800 mg 3-23 tablet by ity of tablet 00:00: mouth [place] 00 every 8 Medical (eight) Branch hours as needed for Pain (scale 4-6). ibuprofen 2023-0 Yes 800mg Take 1 [facility] rs 800 mg 3-23 tablet by ity of tablet 00:00: mouth [place] 00 every 8 Medical (eight) Branch hours as needed for Pain (scale 4-6). ibuprofen 2023-0 Yes 800mg Take 1 [facility] rs 800 mg 3-23 tablet by ity of tablet 00:00: mouth [place] 00 every 8 Medical (eight) Branch hours as needed for Pain (scale 4-6). methylPREDN 2023-0 2022- No [id number] 80mg Univers ISolone 10-05 [id number] ity of acetate 22:30: 22:21 [place] (DEPO-MEDRO 00 :00 Medical L) Branch injection 80 mg methylPREDN 3-0 2022- No [id number] 80mg 80 mg, Univers ISolone 10-05 [id number] Intramuscu ity of acetate 22:30: 22:21 [place], ONCE, [place] (DEPO-MEDRO 00 :00 1 dose, On Me dical L) Mon Branch injection 10/05/22 at 80 mg 1730, Routine methylPREDN 2022-0 2022- No [id number] 80mg Univers ISolone 10-05 [id number] ity of acetate 22:30: 22:21 [place] (DEPO-MEDRO 00 :00 Medical L) Branch injection 80 mg methylPREDN 2023-0 2022- No [id number] 80mg 80 mg, Univers ISolone 10-05 [id number] Intramuscu ity of acetate 22:30: 22:21 lar, ONCE, [place] (DEPO-MEDRO 00 :00 1 dose, On Me dical L) Mon Branch injection 10/05/22 at 80 mg 1730, Routine methylPREDN 2023-0 2022- No [id number] 80mg Univers ISolone 10-05 [id number] ity of acetate 22:30: 22:21 [place] (DEPO-MEDRO 00 :00 Medical L) Branch injection 80 mg methylPREDN 2022-0 2022- No [id number] 80mg 80 mg, Univers ISolone 10-05 [id number] Intramuscu ity of acetate 22:30: 22:21 lar, ONCE, [place] (DEPO-MEDRO 00 :00 1 dose, On Me dical L) Mon Branch injection 10/05/22 at 80 mg 1730, Routine methylPREDN 2022-0 2022- No [id number] 80mg Univers ISolone 10-05 [id number] ity of acetate 22:30: 22:21 [place] (DEPO-MEDRO 00 :00 Medical L) Branch injection 80 mg methylPREDN 2022-0 2022- No [id number] 80mg 80 mg, Univers ISolone 10-05 [id number] Intramuscu ity of acetate 22:30: 22:21 lar, ONCE, [place] (DEPO-MEDRO 00 :00 1 dose, On Me dical L) Mon Branch injection 10/05/22 at 80 mg 1730, Routine methylPREDN 2022-0 2022- No [id number] 80mg Univers ISolone 10-05 [id number] ity of acetate 22:30: 22:21 [place] (DEPO-MEDRO 00 :00 Medical L) Branch injection 80 mg methylPREDN 2022-0 2022- No [id number] 80mg 80 mg, Univers ISolone 10-05 [id number] Intramuscu ity of acetate 22:30: 22:21 lar, ONCE, [place] (DEPO-MEDRO 00 :00 1 dose, On Me dical L) Mon Branch injection 10/05/22 at 80 mg 1730, Routine LATANOPROST 2022-0 Yes [id number] INSTILL 1 Univers 0.005 % 2-20 DROP IN ity of ophthalmic 00:00: BOTH EYES [place] drops 00 AT [facility] LATANOPROST 2022-0 Yes [id number] INSTILL 1 Univers 0.005 % 2-20 DROP IN ity of ophthalmic 00:00: [place] [facility] Yes [id number] INSTILL 1 Univers 0.005 % 2-20 DROP IN ity of ophthalmic 00:00: BOTH EYES [place] drops 00 AT [facility] LATANOPROST 2022-0 Yes [id number] INSTILL 1 Univers 0.005 % 2-20 DROP IN ity of ophthalmic 00:00: BOTH EYES [place] drops 00 AT [facility] LATANOPROST 2022-0 Yes [id number] INSTILL 1 Univers 0.005 % 2-20 DROP IN ity of ophthalmic 00:00: BOTH EYES [place] drops 00 AT [facility] LATANOPROST 2022-0 Yes [id number] INSTILL 1 Univers 0.005 % 2-20 DROP IN ity of ophthalmic 00:00: BOTH EYES [place] drops 00 AT [facility] LATANOPROST 0 Yes [id number] INSTILL 1 Univers 0.005 % 2-20 DROP IN ity of ophthalmic 00:00: BOTH EYES [place] drops 00 AT [facility] LATANOPROST 0 Yes [id number] INSTILL 1 Univers 0.005 % 2-20 DROP IN ity of ophthalmic 00:00: BOTH EYES [place] 00 AT [facility] LATANOPROST 0 Yes [id number] INSTILL 1 Univers 0.005 % 2-20 DROP IN ity of ophthalmic 00:00: BOTH EYES [place] 00 AT [facility] LATANOPROST 2022-0 Yes [id number] INSTILL 1 Univers 0.005 % 2-20 DROP IN ity of ophthalmic 00:00: BOTH EYES [place] 00 AT [facility] LATANOPROST 0 Yes [id number] INSTILL 1 Univers 0.005 % 2-20 DROP IN ity of ophthalmic 00:00: BOTH EYES [place] 00 AT [facility] LATANOPROST 2022-0 Yes [id number] INSTILL 1 Univers 0.005 % 2-20 DROP IN ity of ophthalmic 00:00: BOTH EYES [place] 00 AT [facility] LATANOPROST 2022-0 Yes [id number] INSTILL 1 Univers 0.005 % 2-20 DROP IN ity of ophthalmic 00:00: BOTH EYES [place] 00 AT [facility] LATANOPROST 2022-0 Yes [id number] INSTILL 1 Univers 0.005 % 2-20 DROP IN ity of ophthalmic 00:00: BOTH EYES [place] 00 AT [facility] LATANOPROST 0 Yes [id number] INSTILL 1 Univers 0.005 % 2-20 DROP IN ity of ophthalmic 00:00: BOTH EYES [place] 00 AT [facility] LATANOPROST 0 Yes [id number] INSTILL 1 Univers 0.005 % 2-20 DROP IN ity of ophthalmic 00:00: BOTH EYES [place] 00 AT [facility] LATANOPROST Yes [id number] INSTILL 1 Univers 0.005 % 2-20 DROP IN ity of ophthalmic 00:00: BOTH EYES [place] 00 AT [facility] LATANOPROST Yes [id number] INSTILL 1 Univers 0.005 % 2-20 DROP IN ity of ophthalmic 00:00: BOTH EYES [place] 00 AT [facility] LATANOPROST Yes [id number] INSTILL 1 Univers 0.005 % 2-20 DROP IN ity of ophthalmic 00:00: BOTH EYES [place] 00 AT [facility] LATANOPROST Yes [id number] INSTILL 1 Univers 0.005 % 2-20 DROP IN ity of ophthalmic 00:00: BOTH EYES [place] 00 AT [facility] LATANOPROST Yes [id number] INSTILL 1 Univers 0.005 % 2-20 DROP IN ity of ophthalmic 00:00: BOTH EYES [place] 00 AT [facility] LATANOPROST Yes [id number] INSTILL 1 Univers 0.005 % 2-20 DROP IN ity of ophthalmic 00:00: BOTH EYES [place] 00 AT [facility] LATANOPROST 0 Yes [id number] INSTILL 1 Univers 0.005 % 2-20 DROP IN ity of ophthalmic 00:00: BOTH EYES [place] 00 AT [facility] LATANOPROST 0 Yes [id number] INSTILL 1 Univers 0.005 % 2-20 DROP IN ity of ophthalmic 00:00: BOTH EYES [place] 00 AT [facility] LATANOPROST 0 Yes [id number] INSTILL 1 Univers 0.005 % 2-20 DROP IN ity of ophthalmic 00:00: BOTH EYES [place] 00 AT [facility] LATANOPROST Yes [id number] INSTILL 1 Univers 0.005 % 2-20 DROP IN ity of ophthalmic 00:00: BOTH EYES [place] 00 AT [facility] LATANOPROST 0 Yes [id number] INSTILL 1 Univers 0.005 % 2-20 DROP IN ity of ophthalmic 00:00: BOTH EYES [place] 00 AT [facility] LATANOPROST Yes [id number] INSTILL 1 Univers 0.005 % 2-20 DROP IN ity of ophthalmic 00:00: BOTH EYES [place] 00 AT [facility] LATANOPROST Yes [id number] INSTILL 1 Univers 0.005 % 2-20 DROP IN ity of ophthalmic 00:00: BOTH EYES [place] 00 AT [facility] LATANOPROST Yes [id number] INSTILL 1 Univers 0.005 % 2-20 DROP IN ity of ophthalmic 00:00: BOTH EYES [place] 00 AT [facility] LATANOPROST Yes [id number] INSTILL 1 Univers 0.005 % 2-20 DROP IN ity of ophthalmic 00:00: BOTH EYES [place] 00 AT [facility] LATANOPROST Yes [id number] INSTILL 1 Univers 0.005 % 2-20 DROP IN ity of ophthalmic 00:00: BOTH EYES [place] 00 AT [facility] LATANOPROST 0 Yes [id number] INSTILL 1 Univers 0.005 % 2-20 DROP IN ity of ophthalmic 00:00: BOTH EYES [place] 00 AT [facility] LATANOPROST 0 Yes [id number] INSTILL 1 Univers 0.005 % 2-20 DROP IN ity of ophthalmic 00:00: BOTH EYES [place] 00 AT [facility] LATANOPROST 0 Yes [id number] INSTILL 1 Univers 0.005 % 2-20 DROP IN ity of ophthalmic 00:00: BOTH EYES [place] 00 AT [facility] LATANOPROST Yes [id number] INSTILL 1 Univers 0.005 % 2-20 DROP IN ity of ophthalmic 00:00: BOTH EYES [place] 00 AT [facility] LATANOPROST 0 Yes [id number] INSTILL 1 Univers 0.005 % 2-20 DROP IN ity of ophthalmic 00:00: BOTH EYES [place] 00 AT [facility] LATANOPROST 0 Yes [id number] INSTILL 1 Univers 0.005 % 2-20 DROP IN ity of ophthalmic 00:00: BOTH EYES [place] 00 AT [facility] LATANOPROST Yes [id number] INSTILL 1 Univers 0.005 % 2-20 DROP IN ity of ophthalmic 00:00: BOTH EYES [place] 00 AT [facility] LATANOPROST Yes [id number] INSTILL 1 Univers 0.005 % 2-20 DROP IN ity of ophthalmic 00:00: BOTH EYES [place] 00 AT [facility] LATANOPROST Yes [id number] INSTILL 1 Univers 0.005 % 2-20 DROP IN ity of ophthalmic 00:00: BOTH EYES [place] 00 AT [facility] LATANOPROST 0 Yes [id number] INSTILL 1 Univers 0.005 % 2-20 DROP IN ity of ophthalmic 00:00: BOTH EYES [place] 00 AT [facility] LATANOPROST 0 Yes [id number] INSTILL 1 Univers 0.005 % 2-20 DROP IN ity of ophthalmic 00:00: BOTH EYES [place] 00 AT [facility] LATANOPROST 0 Yes [id number] INSTILL 1 Univers 0.005 % 2-20 DROP IN ity of ophthalmic 00:00: BOTH EYES [place] 00 AT [facility] LATANOPROST 0 Yes [id number] INSTILL 1 Univers 0.005 % 2-20 DROP IN ity of ophthalmic 00:00: BOTH EYES [place] drops 00 AT [facility] LATANOPROST 0 Yes [id number] INSTILL 1 Univers 0.005 % 2-20 DROP IN ity of ophthalmic 00:00: BOTH EYES [place] 00 AT [facility] LATANOPROST Yes [id number] INSTILL 1 Univers 0.005 % 2-20 DROP IN ity of ophthalmic 00:00: BOTH EYES [place] 00 AT [facility] LATANOPROST Yes [id number] INSTILL 1 Univers 0.005 % 2-20 DROP IN ity of ophthalmic 00:00: B[place] EYES [place] 00 AT [facility] LATANOPROST Yes [id number] INSTILL 1 Univers 0.005 % 2-20 DROP IN ity of ophthalmic 00:00: B[place] EYES [place] 00 AT [facility] LATANOPROST Yes [id number] INSTILL 1 Univers 0.005 % 2-20 DROP IN ity of ophthalmic 00:00: BOTH EYES [place] drops 00 AT [facility] LATANOPROST Yes [id number] INSTILL 1 Univers 0.005 % 2-20 DROP IN ity of ophthalmic 00:00: BOTH EYES [place] drops 00 AT [facility] LATANOPROST Yes [id number] INSTILL 1 Univers 0.005 % 2-20 DROP IN ity of ophthalmic 00:00: BOTH EYES [place] drops 00 AT [facility] LATANOPROST Yes [id number] INSTILL 1 Univers 0.005 % 2-20 DROP IN ity of ophthalmic 00:00: BOTH EYES [place] drops 00 AT [facility] LATANOPROST Yes [id number] INSTILL 1 Univers 0.005 % 2-20 DROP IN ity of ophthalmic 00:00: BOTH EYES [place] drops 00 AT [facility] LATANOPROST Yes [id number] INSTILL 1 Univers 0.005 % 2-20 DROP IN ity of ophthalmic 00:00: BOTH EYES [place] drops 00 AT [facility] allopurinoL 2022- No [id number] 200mg Take 2 Univers 100 mg 2-18 03-21 tablets by ity of tablet 00:00: 04:59 mouth in [place] 00 :00 the [facility] for 30 days. Needs [facility] maeve carson pcp for further refills. allopurinoL 2022- No [id number] 200mg Take 2 Univers 100 mg 2-18 03-21 tablets by ity of tablet 00:00: 04:59 mouth in [place] 00 :00 the [facility] for 30 days. Needs appointmen maeve carson pcp for further refills. allopurinoL 2022- No [id number] 200mg Take 2 Univers 100 mg 2-18 03-21 tablets by ity of tablet 00:00: 04:59 mouth in [place] 00 :00 the [facility] for 30 days. Needs appointmen t yamileth pcp for further refills. allopurinoL 2022- No [id number] 200mg Take 2 Univers 100 mg 2-18 03-21 tablets by ity of tablet 00:00: 04:59 mouth in [place] 00 :00 the [facility] for 30 days. Needs appointmen maeve carson pcp for further refills. allopurinoL 2022- No [id number] 200mg Take 2 Univers 100 mg 2-18 03-21 tablets by ity of tablet 00:00: 04:59 mouth in [place] 00 :00 the [facility] for 30 days. Needs appointmen t yamileth pcp for further refills. allopurinoL 2022- No [id number] 200mg Take 2 Univers 100 mg 2-18 03-21 tablets by ity of tablet 00:00: 04:59 mouth in [place] 00 :00 the [facility] for 30 days. Needs appointmen maeve carson pcp for further refills. allopurinoL 2022- No [id number] 200mg Take 2 Univers 100 mg 2-18 03-21 tablets by ity of tablet 00:00: 04:59 mouth in [place] 00 :00 the [facility] for 30 days. Needs appointmen t yamileth pcp for further refills. allopurinoL 2022- No [id number] 200mg Take 2 Univers 100 mg 2-18 03-21 tablets by ity of tablet 00:00: 04:59 mouth in [place] 00 :00 the [facility] for 30 days. Needs appointmen t yamileth pcp for further refills. allopurinoL 2022- No [id number] 200mg Take 2 Univers 100 mg 2-18 03-21 tablets by ity of tablet 00:00: 04:59 mouth in [place] 00 :00 the [facility] for 30 days. Needs appointmen t wit pcp for further refills. allopurinoL No [id number] 200mg Take 2 Univers 100 mg 2-18 03-21 tablets by ity of tablet 00:00: 04:59 mouth in [place] 00 :00 the [facility] for 30 days. Needs appointmen t wit pcp for further refills. allopurinoL 2022- No [id number] 200mg Take 2 Univers 100 mg 2-18 03-21 tablets by ity of tablet 00:00: 04:59 mouth in [place] 00 :00 the [facility] for 30 days. Needs appointmen t wit pcp for further refills. allopurinoL 2022- No [id number] 200mg Take 2 Univers 100 mg 2-18 03-21 tablets by ity of tablet 00:00: 04:59 mouth in [place] 00 :00 the [facility] for 30 days. Needs appointmen t wit pcp for further refills. allopurinoL 2022- No [id number] 200mg Take 2 Univers 100 mg 2-18 03-21 tablets by ity of tablet 00:00: 04:59 mouth in [place] 00 :00 the [facility] for 30 days. Needs appointmen t wit pcp for further refills. allopurinoL 2022- No [id number] 200mg Take 2 Univers 100 mg 2-18 03-21 tablets by ity of tablet 00:00: 04:59 mouth in [place] 00 :00 the [facility] for 30 days. Needs appointmen t yamileth pcp for further refills. allopurinoL 2022- No [id number] 200mg Take 2 Univers 100 mg 2-18 03-21 tablets by ity of tablet 00:00: 04:59 mouth in [place] 00 :00 the [facility] for 30 days. Needs appointmen t wit pcp for further refills. allopurinoL 2022- No [id number] 200mg Take 2 Univers 100 mg 2-18 03-21 tablets by ity of tablet 00:00: 04:59 mouth in [place] 00 :00 the [facility] for 30 days. Needs appointmen t wit pcp for further refills. allopurinoL 2022- No [id number] 200mg Take 2 Univers 100 mg 2-18 03-21 tablets by ity of tablet 00:00: 04:59 mouth in [place] 00 :00 [facility] for 30 days. Needs appointmen t wit pcp for further refills. allopurinoL 2022- No [id number] 200mg Take 2 Univers 100 mg 2-18 03-21 tablets by ity of tablet 00:00: 04:59 mouth in [place] 00 :00 the [facility] for 30 days. Needs appointmen t wit pcp for further refills. allopurinoL 2022- No [id number] 200mg Take 2 Univers 100 mg 2-18 03-21 tablets by ity of tablet 00:00: 04:59 mouth in [place] 00 :00 the [facility] for 30 days. Needs appointmen t wit pcp for further refills. allopurinoL 2022- No [id number] 200mg Take 2 Univers 100 mg 2-18 03-21 tablets by ity of tablet 00:00: 04:59 mouth in [place] 00 :00 [facility] for 30 days. Needs appointmen t wit pcp for further refills. allopurinoL 2022- No [id number] 200mg Take 2 Univers 100 mg 2-18 03-21 tablets by ity of tablet 00:00: 04:59 mouth in [place] 00 :00 [facility] for 30 days. Needs appointmen t yamileth pcp for further refills. allopurinoL 2022- No [id number] 200mg Take 2 Univers 100 mg 2-18 03-21 tablets by ity of tablet 00:00: 04:59 mouth in [place] 00 :00 [facility] for 30 days. Needs appointmen t wit pcp for further refills. clonazePAM 2022-0 Yes (Schedule Un violeta 2 mg tablet 2-15 IV Drug) ity of 14:39: TAKE 1 [place] 55 TABLET BY Medical MOUTH 3 Branch TIMES A DAY FOR 30 DAYS lamoTRIgine 2022-0 Yes 1{tbl} Take 1 Un violeta 100 mg 2-15 tablet by ity of tablet 14:39: mouth in [place] [address] the Medical morning. Branch colchicine 2022-0 Yes Take by Univ ers 0.6 mg Cap 2-15 mouth. ity of 14:39: [place] [address] Medical Branch clonazePAM 2022-0 Yes (Schedule Un violeta 2 mg tablet 2-15 IV Drug) ity of 14:39: TAKE 1 [place] 55 TABLET BY Medical MOUTH 3 Branch TIMES A DAY FOR 30 DAYS lamoTRIgine 2022-0 Yes 1{tbl} Take 1 Un violeta 100 mg 2-15 tablet by ity of tablet 14:39: mouth in [place] [address] the Medical morning. Branch colchicine 0 Yes Take by Univ ers 0.6 mg Cap 2-15 mouth. ity of 14:39: [place] [address] Medical Branch clonazePAM 2022-0 Yes (Schedule Un violeta 2 mg tablet 2-15 IV Drug) ity of 14:39: TAKE 1 [place] 55 TABLET BY Medical MOUTH 3 Branch TIMES A DAY FOR 30 DAYS lamoTRIgine 2022-0 Yes 1{tbl} Take 1 Un violeta 100 mg 2-15 tablet by ity of tablet 14:39: mouth in [place] [address] the Medical morning. Branch colchicine 0 Yes Take by Univ ers 0.6 mg Cap 2-15 mouth. ity of 14:39: [address] Branch clonazePAM 2022-0 Yes (Schedule Un violeta 2 mg tablet 2-15 IV Drug) ity of 14:39: TAKE 1 [place] 55 TABLET BY Medical MOUTH 3 Branch TIMES A DAY FOR 30 DAYS lamoTRIgine 2022-0 Yes 1{tbl} Take 1 Un violeta 100 mg 2-15 tablet by ity of tablet 14:39: mouth in [place] [address] the Medical morning. Branch colchicine 0 Yes Take by Univ ers 0.6 mg Cap 2-15 mouth. ity of 14:39: [place] [address] Medical Branch clonazePAM 2022-0 Yes (Schedule Un violeta 2 mg tablet 2-15 IV Drug) ity of 14:39: TAKE 1 [place] 55 TABLET BY Medical MOUTH 3 Branch TIMES A DAY FOR 30 DAYS lamoTRIgine 2022-0 Yes 1{tbl} Take 1 Un violeta 100 mg 2-15 tablet by ity of tablet 14:39: mouth in [place] [address] the Medical morning. Branch colchicine 0 Yes Take by Univ ers 0.6 mg Cap 2-15 mouth. ity of 14:39: [place] [address] Medical Branch colchicine 2022-0 Yes Take by Univ ers 0.6 mg Cap 2-15 mouth. ity of 14:39: [place] [address] Medical Branch colchicine 2022-0 Yes Take by Univ ers 0.6 mg Cap 2-15 mouth. ity of 14:39: [address] colchicine Yes Take by Univ ers 0.6 mg Cap 2-15 mouth. ity of 14:39: [address] colchicine Yes Take by Univ ers 0.6 mg Cap 2-15 mouth. ity of 14:39: [address] colchicine Yes Take by Univ ers 0.6 mg Cap 2-15 mouth. ity of 14:39: [address] colchicine Yes Take by Univ ers 0.6 mg Cap 2-15 mouth. ity of 14:39: [address] colchicine Yes Take by Univ ers 0.6 mg Cap 2-15 mouth. ity of 14:39: [address] colchicine Yes Take by Univ ers 0.6 mg Cap 2-15 mouth. ity of 14:39: [address] colchicine Yes Take by Univ ers 0.6 mg Cap 2-15 mouth. ity of 14:39: [address] clonazePAM Yes (Schedule Un violeta 2 mg tablet 2-15 IV Drug) ity of 14:39: TAKE 1 [place] 55 TABLET BY Medical MOUTH 3 Branch TIMES A DAY FOR 30 DAYS lamoTRIgine Yes 1{tbl} Take 1 Un violeta 100 mg 2-15 tablet by ity of tablet 14:39: mouth in [place] [address] the Medical morning. Branch colchicine Yes Take by Univ ers 0.6 mg Cap 2-15 mouth. ity of 14:39: [address] clonazePAM Yes (Schedule Un violeta 2 mg tablet 2-15 IV Drug) ity of 14:39: TAKE 1 [place] 55 TABLET BY Medical MOUTH 3 Branch TIMES A DAY FOR 30 DAYS lamoTRIgine Yes 1{tbl} Take 1 Un violeta 100 mg 2-15 tablet by ity of tablet 14:39: mouth in [place] [address] the Medical morning. Branch colchicine Yes Take by Univ ers 0.6 mg Cap 2-15 mouth. ity of 14:39: [address] lamoTRIgine Yes 1{tbl} Take 1 Un violeta 100 mg 2-15 tablet by ity of tablet 14:39: mouth in [place] [address] the Medical morning. Branch colchicine 2022-0 Yes Take by Univ ers 0.6 mg Cap 2-15 mouth. ity of 14:39: [place] [address] Medical Branch lamoTRIgine 2022-0 Yes 1{tbl} Take 1 Un violeta 100 mg 2-15 tablet by ity of tablet 14:39: mouth in [place] [address] the Medical morning. Branch colchicine 2022-0 Yes Take by [facility] 0.6 mg Cap 2-15 mouth. [facility] of 14:39: [place] [address] [facility] Branch lamoTRIgine 2022-0 Yes 1{tbl} Take 1 Un violeta 100 mg 2-15 tablet by ity of tablet 14:39: mouth in [place] [address] the Medical morning. Branch colchicine 2022-0 Yes Take by [facility] 0.6 mg Cap 2-15 mouth. ity of 14:39: [place] [address] [facility] Branch lamoTRIgine 2022-0 Yes 1{tbl} Take 1 Un violeta 100 mg 2-15 tablet by ity of tablet 14:39: mouth in [place] [address] the Medical morning. Branch colchicine 2022-0 Yes Take by [facility] 0.6 mg Cap 2-15 mouth. ity of 14:39: [place] [address] [facility] Branch lamoTRIgine 2022-0 Yes 1{tbl} Take 1 Un violeta 100 mg 2-15 tablet by ity of tablet 14:39: mouth in [place] [address] the Medical morning. Branch colchicine 2022-0 Yes Take by [facility] 0.6 mg Cap 2-15 mouth. ity of 14:39: [place] [address] [facility] Branch lamoTRIgine 3-0 Yes 1{tbl} Take 1 Un violeta 100 mg 2-15 tablet by ity of tablet 14:39: mouth in [place] [address] the Medical morning. Branch colchicine 3-0 Yes Take by [facility] 0.6 mg Cap 2-15 mouth. ity of 14:39: [place] [address] [facility] Branch lamoTRIgine 3-0 Yes 1{tbl} Take 1 Un violtea 100 mg 2-15 tablet by ity of tablet 14:39: mouth in [place] [address] the Medical morning. Branch colchicine 3-0 Yes Take by [facility] 0.6 mg Cap 2-15 mouth. ity of 14:39: [place] [address] [facility] Branch lamoTRIgine 2022-0 Yes 1{tbl} Take 1 Un violeta 100 mg 2-15 tablet by ity of tablet 14:39: mouth in [place] [address] the Medical morning. Branch colchicine 2022-0 Yes Take by [facility] 0.6 mg Cap 2-15 mouth. ity of 14:39: [place] [address] [facility] Branch lamoTRIgine 2022-0 Yes 1{tbl} Take 1 Un violeta 100 mg 2-15 tablet by ity of tablet 14:39: mouth in [place] [address] the Medical morning. Branch colchicine 2022-0 Yes Take by [facility] 0.6 mg Cap 2-15 mouth. ity of 14:39: [place] [address] [facility] Branch clonazePAM 2022-0 Yes (Schedule Un violeta 2 mg tablet 2-15 IV Drug) ity of 14:39: TAKE 1 [place] 55 TABLET BY Medical MOUTH 3 Branch TIMES A DAY FOR 30 DAYS lamoTRIgine 2022-0 Yes 1{tbl} Take 1 Un violeta 100 mg 2-15 tablet by ity of tablet 14:39: mouth in [place] [address] the Medical morning. Branch colchicine 2022-0 Yes Take by [facility] 0.6 mg Cap 2-15 mouth. ity of 14:39: [place] [address] [facility] Branch clonazePAM 2022-0 Yes (Schedule Un violeta 2 mg tablet 2-15 IV Drug) ity of 14:39: TAKE 1 [place] 55 TABLET BY Medical MOUTH 3 Branch TIMES A DAY FOR 30 DAYS lamoTRIgine 2022-0 Yes 1{tbl} Take 1 Un violeta 100 mg 2-15 tablet by ity of tablet 14:39: mouth in [place] [address] the Medical morning. Branch colchicine 2022-0 Yes Take by [facility] 0.6 mg Cap 2-15 mouth. ity of 14:39: [place] [address] Medical Branch clonazePAM 3-0 Yes (Schedule Un violeta 2 mg tablet 2-15 IV Drug) ity of 14:39: TAKE 1 [place] 55 TABLET BY Medical MOUTH 3 Branch TIMES A DAY FOR 30 DAYS lamoTRIgine 3-0 Yes 1{tbl} Take 1 Un violeta 100 mg 2-15 tablet by ity of tablet 14:39: mouth in [place] [address] the Medical morning. Branch colchicine 2022-0 Yes Take by [facility] 0.6 mg Cap 2-15 mouth. ity of 14:39: [place] [address] [facility] Branch clonazePAM 2023-0 Yes (Schedule Un violeta 2 mg tablet 2-15 IV Drug) ity of 14:39: TAKE 1 [place] 55 TABLET BY Medical MOUTH 3 Branch TIMES A DAY FOR 30 DAYS lamoTRIgine 2022-0 Yes 1{tbl} Take 1 Un violeta 100 mg 2-15 tablet by ity of tablet 14:39: mouth in [place] [address] the Medical morning. Branch colchicine 2022-0 Yes Take by [facility] 0.6 mg Cap 2-15 mouth. ity of 14:39: [place] [address] [facility] Branch clonazePAM 2022-0 Yes (Schedule Un violeta 2 mg tablet 2-15 IV Drug) ity of 14:39: TAKE 1 [place] 55 TABLET BY Medical MOUTH 3 Branch TIMES A DAY FOR 30 DAYS lamoTRIgine 2022-0 Yes 1{tbl} Take 1 Un violeta 100 mg 2-15 tablet by ity of tablet 14:39: mouth in [place] [address] the Medical morning. Branch colchicine 2022-0 Yes Take by [facility] 0.6 mg Cap 2-15 mouth. ity of 14:39: [place] [address] Medical Branch clonazePAM 2022-0 Yes (Schedule Un violeta 2 mg tablet 2-15 IV Drug) ity of 14:39: TAKE 1 [place] 55 TABLET BY Medical MOUTH 3 Branch TIMES A DAY FOR 30 DAYS lamoTRIgine 2022-0 Yes 1{tbl} Take 1 Un violeta 100 mg 2-15 tablet by ity of tablet 14:39: mouth in [place] [address] the Medical morning. Branch colchicine 2022-0 Yes Take by [facility] 0.6 mg Cap 2-15 mouth. ity of 14:39: [place] [address] [facility] Branch clonazePAM 2022-0 Yes (Schedule Un violeta 2 mg tablet 2-15 IV Drug) ity of 14:39: TAKE 1 [place] 55 TABLET BY Medical MOUTH 3 Branch TIMES A DAY FOR 30 DAYS lamoTRIgine 2022-0 Yes 1{tbl} Take 1 Un violeta 100 mg 2-15 tablet by ity of tablet 14:39: mouth in [place] [address] the Medical morning. Branch colchicine 2022-0 Yes Take by [facility] 0.6 mg Cap 2-15 mouth. ity of 14:39: [place] [address] [facility] Branch clonazePAM 3-0 Yes (Schedule Un violeta 2 mg tablet 2-15 IV Drug) ity of 14:39: TAKE 1 [place] 55 TABLET BY Medical MOUTH 3 Branch TIMES A DAY FOR 30 DAYS lamoTRIgine 3-0 Yes 1{tbl} Take 1 Un violeta 100 mg 2-15 tablet by ity of tablet 14:39: mouth in [place] [address] the Medical morning. Branch colchicine 2022-0 Yes Take by [facility] 0.6 mg Cap 2-15 mouth. ity of 14:39: [place] [address] [facility] Branch clonazePAM 2022-0 Yes (Schedule Un violeta 2 mg tablet 2-15 IV Drug) ity of 14:39: TAKE 1 [place] 55 TABLET BY Medical MOUTH 3 Branch TIMES A DAY FOR 30 DAYS lamoTRIgine 2022-0 Yes 1{tbl} Take 1 Un violeta 100 mg 2-15 tablet by ity of tablet 14:39: mouth in [place] [address] the Medical morning. Branch colchicine 0 Yes Take by [facility] 0.6 mg Cap 2-15 mouth. ity of 14:39: [place] [address] Medical Branch clonazePAM 2022-0 Yes (Schedule Un violeta 2 mg tablet 2-15 IV Drug) ity of 14:39: TAKE 1 [place] 55 TABLET BY Medical MOUTH 3 Branch TIMES A DAY FOR 30 DAYS lamoTRIgine 2022-0 Yes 1{tbl} Take 1 Un violeta 100 mg 2-15 tablet by ity of tablet 14:39: mouth in [place] [address] the Medical morning. Branch colchicine 0 Yes Take by [facility] 0.6 mg Cap 2-15 mouth. ity of 14:39: [place] [address] Medical Branch clonazePAM 3-0 Yes (Schedule Un violeta 2 mg tablet 2-15 IV Drug) ity of 14:39: TAKE 1 [place] 55 TABLET BY Medical MOUTH 3 Branch TIMES A DAY FOR 30 DAYS lamoTRIgine 2022-0 Yes 1{tbl} Take 1 Un violeta 100 mg 2-15 tablet by ity of tablet 14:39: mouth in [place] [address] the Medical morning. Branch colchicine 2022-0 Yes Take by [facility] 0.6 mg Cap 2-15 mouth. ity of 14:39: [place] [address] Medical Branch clonazePAM 3-0 Yes (Schedule Un violeta 2 mg tablet 2-15 IV Drug) ity of 14:39: TAKE 1 [place] 55 TABLET BY Medical MOUTH 3 Branch TIMES A DAY FOR 30 DAYS lamoTRIgine 3-0 Yes 1{tbl} Take 1 Un violeta 100 mg 2-15 tablet by ity of tablet 14:39: mouth in [place] [address] the Medical morning. Branch colchicine 2022-0 Yes Take by [facility] 0.6 mg Cap 2-15 mouth. ity of 14:39: [place] [address] Medical Branch clonazePAM 2022-0 Yes (Schedule Un violeta 2 mg tablet 2-15 IV Drug) ity of 14:39: TAKE 1 [place] 55 TABLET BY Medical MOUTH 3 Branch TIMES A DAY FOR 30 DAYS lamoTRIgine 2022-0 Yes 1{tbl} Take 1 Un violeta 100 mg 2-15 tablet by ity of tablet 14:39: mouth in [place] [address] the Medical morning. Branch colchicine 2022-0 Yes Take by [facility] 0.6 mg Cap 2-15 mouth. ity of 14:39: [place] [address] Medical Branch clonazePAM 2022-0 Yes (Schedule Un violeta 2 mg tablet 2-15 IV Drug) ity of 14:39: TAKE 1 [place] 55 TABLET BY Medical MOUTH 3 Branch TIMES A DAY FOR 30 DAYS lamoTRIgine 2022-0 Yes 1{tbl} Take 1 Un violeta 100 mg 2-15 tablet by ity of tablet 14:39: mouth in [place] [address] the Medical morning. Branch colchicine 2022-0 Yes Take by [facility] 0.6 mg Cap 2-15 mouth. ity of 14:39: [place] [address] Medical Branch clonazePAM 2022-0 Yes (Schedule Un violeta 2 mg tablet 2-15 IV Drug) ity of 14:39: TAKE 1 [place] 55 TABLET BY Medical MOUTH 3 Branch TIMES A DAY FOR 30 DAYS lamoTRIgine 2022-0 Yes 1{tbl} Take 1 Un violeta 100 mg 2-15 tablet by ity of tablet 14:39: mouth in [place] [address] the Medical morning. Branch colchicine 2022-0 Yes Take by [facility] 0.6 mg Cap 2-15 mouth. ity of 14:39: [place] [address] Medical Branch clonazePAM 3-0 Yes (Schedule Un violeta 2 mg tablet 2-15 IV Drug) ity of 14:39: TAKE 1 [place] 55 TABLET BY Medical MOUTH 3 Branch TIMES A DAY FOR 30 DAYS lamoTRIgine 3-0 Yes 1{tbl} Take 1 Un violeta 100 mg 2-15 tablet by ity of tablet 14:39: mouth in [place] [address] the Medical morning. Branch colchicine 2023-0 Yes Take by [facility] 0.6 mg Cap 2-15 mouth. ity of 14:39: [place] [address] [facility] Branch clonazePAM 2022-0 Yes (Schedule Un violeta 2 mg tablet 2-15 IV Drug) ity of 14:39: TAKE 1 [place] 55 TABLET BY Medical MOUTH 3 Branch TIMES A DAY FOR 30 DAYS lamoTRIgine 2022-0 Yes 1{tbl} Take 1 Un violeta 100 mg 2-15 tablet by ity of tablet 14:39: mouth in [place] [address] the Medical morning. Branch colchicine 2022-0 Yes Take by [facility] 0.6 mg Cap 2-15 mouth. ity of 14:39: [place] [address] Medical Branch clonazePAM 2022-0 Yes (Schedule Un violeta 2 mg tablet 2-15 IV Drug) ity of 14:39: TAKE 1 [place] 55 TABLET BY Medical MOUTH 3 Branch TIMES A DAY FOR 30 DAYS lamoTRIgine 2022-0 Yes 1{tbl} Take 1 Un violeta 100 mg 2-15 tablet by ity of tablet 14:39: mouth in [place] [address] the Medical morning. Branch colchicine 2022-0 Yes Take by [facility] 0.6 mg Cap 2-15 mouth. ity of 14:39: [place] [address] Medical Branch clonazePAM 2022-0 Yes (Schedule Un violeta 2 mg tablet 2-15 IV Drug) ity of 14:39: TAKE 1 [place] 55 TABLET BY Medical MOUTH 3 Branch TIMES A DAY FOR 30 DAYS lamoTRIgine 2022-0 Yes 1{tbl} Take 1 Un violeta 100 mg 2-15 tablet by ity of tablet 14:39: mouth in [place] [address] the Medical morning. Branch colchicine 2022-0 Yes Take by [facility] 0.6 mg Cap 2-15 mouth. ity of 14:39: [place] [address] Medical Branch clonazePAM 2022-0 Yes (Schedule Un violeta 2 mg tablet 2-15 IV Drug) ity of 14:39: TAKE 1 [place] 55 TABLET BY Medical MOUTH 3 Branch TIMES A DAY FOR 30 DAYS lamoTRIgine 2022-0 Yes 1{tbl} Take 1 Un violeta 100 mg 2-15 tablet by ity of tablet 14:39: mouth in [place] [address] the Medical morning. Branch colchicine 2022-0 Yes Take by [facility] 0.6 mg Cap 2-15 mouth. ity of 14:39: [place] [address] Medical Branch clonazePAM 2023-0 Yes (Schedule Un violeta 2 mg tablet 2-15 IV Drug) ity of 14:39: TAKE 1 [place] 55 TABLET BY Medical MOUTH 3 Branch TIMES A DAY FOR 30 DAYS lamoTRIgine 3-0 Yes 1{tbl} Take 1 Un violeta 100 mg 2-15 tablet by ity of tablet 14:39: mouth in [place] [address] the Medical morning. Branch colchicine 2022-0 Yes Take by [facility] 0.6 mg Cap 2-15 mouth. ity of 14:39: [place] [address] Medical Branch clonazePAM 3-0 Yes (Schedule Un violeta 2 mg tablet 2-15 IV Drug) ity of 14:39: TAKE 1 [place] 55 TABLET BY Medical MOUTH 3 Branch TIMES A DAY FOR 30 DAYS lamoTRIgine 3-0 Yes 1{tbl} Take 1 Un violeta 100 mg 2-15 tablet by ity of tablet 14:39: mouth in [place] [address] the Medical morning. Branch colchicine 2022-0 Yes Take by [facility] 0.6 mg Cap 2-15 mouth. ity of 14:39: [place] [address] Medical Branch clonazePAM 3-0 Yes (Schedule Un violeta 2 mg tablet 2-15 IV Drug) ity of 14:39: TAKE 1 [place] 55 TABLET BY Medical MOUTH 3 Branch TIMES A DAY FOR 30 DAYS lamoTRIgine 3-0 Yes 1{tbl} Take 1 Un violeta 100 mg 2-15 tablet by ity of tablet 14:39: mouth in [place] [address] the Medical morning. Branch colchicine 2022-0 Yes Take by [facility] 0.6 mg Cap 2-15 mouth. ity of 14:39: [place] [address] Medical Branch clonazePAM 3-0 Yes (Schedule Un violeta 2 mg tablet 2-15 IV Drug) ity of 14:39: TAKE 1 [place] 55 TABLET BY Medical MOUTH 3 Branch TIMES A DAY FOR 30 DAYS lamoTRIgine 3-0 Yes 1{tbl} Take 1 Un violeta 100 mg 2-15 tablet by ity of tablet 14:39: mouth in [place] [address] the Medical morning. Branch colchicine 2022-0 Yes Take by [facility] 0.6 mg Cap 2-15 mouth. ity of 14:39: [place] [address] Medical Branch clonazePAM 3-0 Yes (Schedule Un violeta 2 mg tablet 2-15 IV Drug) ity of 14:39: TAKE 1 [place] 55 TABLET BY Medical MOUTH 3 Branch TIMES A DAY FOR 30 DAYS lamoTRIgine 2022-0 Yes 1{tbl} Take 1 Un violeta 100 mg 2-15 tablet by ity of tablet 14:39: mouth in [place] [address] the Medical morning. Branch colchicine 0 Yes Take by [facility] 0.6 mg Cap 2-15 mouth. ity of 14:39: [place] [address] Medical Branch clonazePAM 2022-0 Yes (Schedule Un violeta 2 mg tablet 2-15 IV Drug) ity of 14:39: TAKE 1 [place] 55 TABLET BY Medical MOUTH 3 Branch TIMES A DAY FOR 30 DAYS lamoTRIgine 2022-0 Yes 1{tbl} Take 1 Un violeta 100 mg 2-15 tablet by ity of tablet 14:39: mouth in [place] [address] the Medical morning. Branch colchicine 0 Yes Take by [facility] 0.6 mg Cap 2-15 mouth. ity of 14:39: [place] [address] Medical Branch clonazePAM 2022-0 Yes (Schedule Un violeta 2 mg tablet 2-15 IV Drug) ity of 14:39: TAKE 1 [place] 55 TABLET BY Medical MOUTH 3 Branch TIMES A DAY FOR 30 DAYS lamoTRIgine 2022-0 Yes 1{tbl} Take 1 Un violeta 100 mg 2-15 tablet by ity of tablet 14:39: mouth in [place] [address] the Medical morning. Branch colchicine 2022-0 Yes Take by [facility] 0.6 mg Cap 2-15 mouth. ity of 14:39: [place] [address] Medical Branch clonazePAM 2022-0 Yes (Schedule Un violeta 2 mg tablet 2-15 IV Drug) ity of 14:39: TAKE 1 [place] 55 TABLET BY Medical MOUTH 3 Branch TIMES A DAY FOR 30 DAYS lamoTRIgine 2022-0 Yes 1{tbl} Take 1 Un violeta 100 mg 2-15 tablet by ity of tablet 14:39: mouth in [place] [address] the Medical morning. Branch colchicine 2022-0 Yes Take by [facility] 0.6 mg Cap 2-15 mouth. ity of 14:39: [place] [address] Medical Branch clonazePAM 3-0 Yes (Schedule Un violeta 2 mg tablet 2-15 IV Drug) ity of 14:39: TAKE 1 [place] 55 TABLET BY Medical MOUTH 3 Branch TIMES A DAY FOR 30 DAYS lamoTRIgine 2022-0 Yes 1{tbl} Take 1 Un vioelta 100 mg 2-15 tablet by ity of tablet 14:39: mouth in [place] [address] the Medical morning. Branch colchicine 2022-0 Yes Take by [facility] 0.6 mg Cap 2-15 mouth. ity of 14:39: [place] [address] Medical Branch clonazePAM 2022-0 Yes (Schedule Un violeta 2 mg tablet 2-15 IV Drug) ity of 14:39: TAKE 1 [place] 55 TABLET BY Medical MOUTH 3 Branch TIMES A DAY FOR 30 DAYS lamoTRIgine 2022-0 Yes 1{tbl} Take 1 Un violeta 100 mg 2-15 tablet by ity of tablet 14:39: mouth in [place] [address] the Medical morning. Branch colchicine 2022-0 Yes Take by [facility] 0.6 mg Cap 2-15 mouth. ity of 14:39: [place] [address] Medical Branch clonazePAM 2022-0 Yes (Schedule Un violeta 2 mg tablet 2-15 IV Drug) ity of 14:39: TAKE 1 [place] 55 TABLET BY Medical MOUTH 3 Branch TIMES A DAY FOR 30 DAYS lamoTRIgine 2022-0 Yes 1{tbl} Take 1 Un violeta 100 mg 2-15 tablet by ity of tablet 14:39: mouth in [place] [address] the Medical morning. Branch colchicine 2022-0 Yes Take by [facility] 0.6 mg Cap 2-15 mouth. ity of 14:39: [place] [address] Medical Branch clonazePAM 2022-0 Yes (Schedule Un violeta 2 mg tablet 2-15 IV Drug) ity of 14:39: TAKE 1 [place] 55 TABLET BY Medical MOUTH 3 Branch TIMES A DAY FOR 30 DAYS lamoTRIgine 2022-0 Yes 1{tbl} Take 1 Un violeta 100 mg 2-15 tablet by ity of tablet 14:39: mouth in [place] [address] the Medical morning. Branch colchicine 2022-0 Yes Take by [facility] 0.6 mg Cap 2-15 mouth. ity of 14:39: [place] [address] Medical Branch clonazePAM 2022-0 Yes (Schedule Un violeta 2 mg tablet 2-15 IV Drug) ity of 14:39: TAKE 1 [place] 55 TABLET BY Medical MOUTH 3 Branch TIMES A DAY FOR 30 DAYS lamoTRIgine 3-0 Yes 1{tbl} Take 1 Un violeta 100 mg 2-15 tablet by ity of tablet 14:39: mouth in [place] [address] the Medical morning. Branch colchicine 2023-0 Yes Take by [facility] 0.6 mg Cap 2-15 mouth. ity of 14:39: [place] [address] Medical Branch clonazePAM 3-0 Yes (Schedule Un violeta 2 mg tablet 2-15 IV Drug) ity of 14:39: TAKE 1 [place] 55 TABLET BY Medical MOUTH 3 Branch TIMES A DAY FOR 30 DAYS lamoTRIgine 3-0 Yes 1{tbl} Take 1 Un violeta 100 mg 2-15 tablet by ity of tablet 14:39: mouth in [place] [address] the Medical morning. Branch colchicine 2022-0 Yes Take by [facility] 0.6 mg Cap 2-15 mouth. ity of 14:39: [place] [address] Medical Branch clonazePAM 3-0 Yes (Schedule Un violeta 2 mg tablet 2-15 IV Drug) ity of 14:39: TAKE 1 [place] 55 TABLET BY Medical MOUTH 3 Branch TIMES A DAY FOR 30 DAYS lamoTRIgine 3-0 Yes 1{tbl} Take 1 Un violeta 100 mg 2-15 tablet by ity of tablet 14:39: mouth in [place] [address] the Medical morning. Branch colchicine 2022-0 Yes Take by [facility] 0.6 mg Cap 2-15 mouth. ity of 14:39: [place] [address] Medical Branch clonazePAM 3-0 Yes (Schedule Un violeta 2 mg tablet 2-15 IV Drug) ity of 14:39: TAKE 1 [place] 55 TABLET BY Medical MOUTH 3 Branch TIMES A DAY FOR 30 DAYS lamoTRIgine 3-0 Yes 1{tbl} Take 1 Un violeta 100 mg 2-15 tablet by ity of tablet 14:39: mouth in [place] [address] the Medical morning. Branch colchicine 3-0 Yes Take by [facility] 0.6 mg Cap 2-15 mouth. ity of 14:39: [place] [address] Medical Branch clonazePAM 3-0 Yes (Schedule Un violeta 2 mg tablet 2-15 IV Drug) ity of 14:39: TAKE 1 [place] 55 TABLET BY Medical MOUTH 3 Branch TIMES A DAY FOR 30 DAYS lamoTRIgine 2023-0 Yes 1{tbl} Take 1 Un violeta 100 mg 2-15 tablet by ity of tablet 14:39: mouth in [place] [address] the Medical morning. Branch colchicine 3-0 Yes Take by [facility] 0.6 mg Cap 2-15 mouth. ity of 14:39: [place] [address] Medical Branch clonazePAM 3-0 Yes (Schedule Un violeta 2 mg tablet 2-15 IV Drug) ity of 14:39: TAKE 1 [place] 55 TABLET BY Medical MOUTH 3 Branch TIMES A DAY FOR 30 DAYS lamoTRIgine 2022-0 Yes 1{tbl} Take 1 Un violeta 100 mg 2-15 tablet by ity of tablet 14:39: mouth in [place] [address] the Medical morning. Branch colchicine 2022-0 Yes Take by [facility] 0.6 mg Cap 2-15 mouth. ity of 14:39: [place] [address] Medical Branch clonazePAM 2022-0 Yes (Schedule Un violeta 2 mg tablet 2-15 IV Drug) ity of 14:39: TAKE 1 [place] 55 TABLET BY Medical MOUTH 3 Branch TIMES A DAY FOR 30 DAYS lamoTRIgine 2022-0 Yes 1{tbl} Take 1 Un violeta 100 mg 2-15 tablet by ity of tablet 14:39: mouth in [place] [address] the Medical morning. Branch colchicine 2022-0 Yes Take by [facility] 0.6 mg Cap 2-15 mouth. ity of 14:39: [place] [address] Medical Branch clonazePAM 2022-0 Yes (Schedule Un violeta 2 mg tablet 2-15 IV Drug) ity of 14:39: TAKE 1 [place] 55 TABLET BY Medical MOUTH 3 Branch TIMES A DAY FOR 30 DAYS lamoTRIgine 2022-0 Yes 1{tbl} Take 1 Un violeta 100 mg 2-15 tablet by ity of tablet 14:39: mouth in [place] [address] the Medical morning. Branch colchicine 2022-0 Yes Take by [facility] 0.6 mg Cap 2-15 mouth. ity of 14:39: [place] [address] Medical Branch clonazePAM 3-0 Yes (Schedule Un violeta 2 mg tablet 2-15 IV Drug) ity of 14:39: TAKE 1 [place] 55 TABLET BY Medical MOUTH 3 Branch TIMES A DAY FOR 30 DAYS lamoTRIgine 3-0 Yes 1{tbl} Take 1 Un violeta 100 mg 2-15 tablet by ity of tablet 14:39: mouth in [place] [address] the Medical morning. Branch colchicine 2022-0 Yes Take by [facility] 0.6 mg Cap 2-15 mouth. ity of 14:39: [place] [address] Medical Branch clonazePAM 3-0 Yes (Schedule Un violeta 2 mg tablet 2-15 IV Drug) ity of 14:39: TAKE 1 [place] 55 TABLET BY Medical MOUTH 3 Branch TIMES A DAY FOR 30 DAYS lamoTRIgine 3-0 Yes 1{tbl} Take 1 Un violeta 100 mg 2-15 tablet by ity of tablet 14:39: mouth in [place] [address] the Medical morning. Branch colchicine 2022-0 Yes Take by [facility] 0.6 mg Cap 2-15 mouth. ity of 14:39: [place] [address] Medical Branch clonazePAM 3-0 Yes (Schedule Un violeta 2 mg tablet 2-15 IV Drug) ity of 14:39: TAKE 1 [place] 55 TABLET BY Medical MOUTH 3 Branch TIMES A DAY FOR 30 DAYS lamoTRIgine 2022-0 Yes 1{tbl} Take 1 Un violeta 100 mg 2-15 tablet by ity of tablet 14:39: mouth in [place] [address] the Medical morning. Branch colchicine 2022-0 Yes Take by [facility] 0.6 mg Cap 2-15 mouth. ity of 14:39: [place] [address] Medical Branch clonazePAM 3-0 Yes (Schedule Un violeta 2 mg tablet 2-15 IV Drug) ity of 14:39: TAKE 1 [place] 55 TABLET BY Medical MOUTH 3 Branch TIMES A DAY FOR 30 DAYS lamoTRIgine 2022-0 Yes 1{tbl} Take 1 Un violeta 100 mg 2-15 tablet by ity of tablet 14:39: mouth in [place] [address] the Medical morning. Branch colchicine 2022-0 Yes Take by [facility] 0.6 mg Cap 2-15 mouth. ity of 14:39: [place] [address] Medical Branch clonazePAM 3-0 Yes (Schedule Un violeta 2 mg tablet 2-15 IV Drug) ity of 14:39: TAKE 1 [place] 55 TABLET BY Medical MOUTH 3 Branch TIMES A DAY FOR 30 DAYS lamoTRIgine 3-0 Yes 1{tbl} Take 1 Un violeta 100 mg 2-15 tablet by ity of tablet 14:39: mouth in [place] [address] the Medical morning. Branch colchicine 2022-0 Yes Take by [facility] 0.6 mg Cap 2-15 mouth. ity of 14:39: [place] [address] Medical Branch clonazePAM 3-0 Yes (Schedule Un violeta 2 mg tablet 2-15 IV Drug) ity of 14:39: TAKE 1 [place] 55 TABLET BY Medical MOUTH 3 Branch TIMES A DAY FOR 30 DAYS lamoTRIgine 2023-0 Yes 1{tbl} Take 1 Un violeta 100 mg 2-15 tablet by ity of tablet 14:39: mouth in [place] [address] the Medical morning. Branch colchicine 2022-0 Yes Take by [facility] 0.6 mg Cap 2-15 mouth. ity of 14:39: [place] [address] Medical Branch clonazePAM 2022-0 Yes (Schedule Un violeta 2 mg tablet 2-15 IV Drug) ity of 14:39: TAKE 1 [place] 55 TABLET BY Medical MOUTH 3 Branch TIMES A DAY FOR 30 DAYS lamoTRIgine 2022-0 Yes 1{tbl} Take 1 Un violeta 100 mg 2-15 tablet by ity of tablet 14:39: mouth in [place] [address] the Medical morning. Branch colchicine 0 Yes Take by [facility] 0.6 mg Cap 2-15 mouth. ity of 14:39: [place] [address] Medical Branch clonazePAM 2022-0 Yes (Schedule Un violeta 2 mg tablet 2-15 IV Drug) ity of 14:39: TAKE 1 [place] [address] TABLET BY Medical MOUTH 3 Branch TIMES A DAY FOR 30 DAYS lamoTRIgine 2022-0 Yes 1{tbl} Take 1 Un violeta 100 mg 2-15 tablet by ity of tablet 14:39: mouth in [place] [address] the Medical morning. Branch colchicine 0 Yes Take by [facility] 0.6 mg Cap 2-15 mouth. ity of 14:39: [place] [address] Medical Branch clonazePAM 2022-0 Yes (Schedule Un violeta 2 mg tablet 2-15 IV Drug) ity of 14:39: TAKE 1 [place] [address] TABLET BY Medical MOUTH 3 Branch TIMES A DAY FOR 30 DAYS lamoTRIgine 2022-0 Yes 1{tbl} Take 1 Un violeta 100 mg 2-15 tablet by ity of tablet 14:39: mouth in [place] [address] the Medical morning. Branch colchicine 2022-0 Yes Take by [facility] 0.6 mg Cap 2-15 mouth. ity of 14:39: [place] [address] Medical Branch FLUoxetine 2022-0 2022- No 1{capsu Take 1 U nivers 40 mg 2-15 02-15 le} capsule by ity of capsule 14:39: 00:00 mouth in [place] 55 :00 the Medical morning. Branch FLUoxetine 2022-0 2022- No 1{capsu Take 1 U nivers 40 mg 2-15 02-15 le} capsule by ity of capsule 14:39: 00:00 mouth in [place] 55 :00 the Medical morning. [place] lisinopriL- 2022- No 1{tbl} Take 1 [facility] nivers hydrochloro 2-15 02-15 tablet by it y of thiazide 14:39: 00:00 mouth [place] 20-12.5 mg 55 :00 every Medical per tablet morning. [facility] FLUoxetine 2022- No 1{capsu Take 1 U nivers 40 mg 2-15 02-15 le} capsule by ity of capsule 14:39: 00:00 mouth in [place] 55 :00 the Medical morning. [place] lisinopriL- 2022- No 1{tbl} Take 1 U nivers hydrochloro 2-15 02-15 tablet by it y of thiazide 14:39: 00:00 mouth [place] 20-12.5 mg 55 :00 every Medical per tablet morning. [facility] FLUoxetine 2022- No 1{capsu Take 1 U nivers 40 mg 2-15 02-15 le} capsule by ity of capsule 14:39: 00:00 mouth in [place] 55 :00 the Medical morning. [place] FLUoxetine 2022- No 1{capsu Take 1 U nivers 40 mg 2-15 02-15 le} capsule by ity of capsule 14:39: 00:00 mouth in [place] 55 :00 the Medical morning. [place] FLUoxetine 2022- No 1{capsu Take 1 U nivers 40 mg 2-15 02-15 le} capsule by ity of capsule 14:39: 00:00 mouth in [place] 55 :00 the Medical morning. [place] buPROPion Yes TAKE 1 [facility] 200 mg 12 2-06 TABLET BY ity o f hr tablet 00:00: MOUTH [place] 00 EVERY DAY Medical IN THE [place] MORNING FOR 90 DAYS buPROPion Yes TAKE 1 [facility] 200 mg 12 2-06 TABLET BY ity o f hr tablet 00:00: MOUTH [place] [address] EVERY DAY Medical IN THE [place] MORNING FOR 90 DAYS buPROPion Yes TAKE 1 [facility] 200 mg 12 2-06 TABLET BY ity o f hr tablet 00:00: MOUTH [place] [address] EVERY DAY Medical IN THE [place] MORNING FOR 90 DAYS buPROPion 2023-0 Yes TAKE 1 [facility] 200 mg 12 2-06 TABLET BY [facility] hr tablet 00:00: MOUTH [place] 00 EVERY DAY Medical IN THE [place] MORNING FOR 90 DAYS buPROPion 3-0 Yes TAKE 1 [facility] 200 mg 12 2-06 TABLET BY [facility] hr tablet 00:00: MOUTH [place] 00 EVERY DAY Medical IN THE [place] MORNING FOR 90 DAYS buPROPion 3-0 Yes TAKE 1 [facility] 200 mg 12 2-06 TABLET BY [facility] hr tablet 00:00: MOUTH [place] 00 EVERY DAY Medical IN THE [place] MORNING FOR 90 DAYS buPROPion 2022-0 Yes TAKE 1 [facility] 200 mg 12 2-06 TABLET BY [facility] hr tablet 00:00: MOUTH [place] 00 EVERY DAY Medical IN THE [place] MORNING FOR 90 DAYS buPROPion 2022-0 Yes TAKE 1 [facility] 200 mg 12 2-06 TABLET BY [facility] hr tablet 00:00: MOUTH [place] 00 EVERY DAY Medical IN THE [place] MORNING FOR 90 DAYS buPROPion 2022-0 Yes TAKE 1 [facility] 200 mg 12 2-06 TABLET BY [facility] hr tablet 00:00: MOUTH [place] 00 EVERY DAY Medical IN THE [place] MORNING FOR 90 DAYS buPROPion 2022-0 Yes TAKE 1 [facility] 200 mg 12 2-06 TABLET BY [facility] hr tablet 00:00: MOUTH [place] 00 EVERY DAY Medical IN THE [place] MORNING FOR 90 DAYS buPROPion 3-0 Yes TAKE 1 [facility] 200 mg 12 2-06 TABLET BY [facility] hr tablet 00:00: MOUTH [place] 00 EVERY DAY Medical IN THE [place] MORNING FOR 90 DAYS buPROPion 3-0 Yes TAKE 1 [facility] 200 mg 12 2-06 TABLET BY [facility] hr tablet 00:00: MOUTH [place] 00 EVERY DAY Medical IN THE [place] MORNING FOR 90 DAYS buPROPion 3-0 Yes TAKE 1 [facility] 200 mg 12 2-06 TABLET BY [facility] hr tablet 00:00: MOUTH [place] 00 EVERY DAY Medical IN THE [place] MORNING FOR 90 DAYS buPROPion 3-0 Yes TAKE 1 [facility] 200 mg 12 2-06 TABLET BY [facility] hr tablet 00:00: MOUTH [place] 00 EVERY DAY Medical IN THE [place] MORNING FOR 90 DAYS buPROPion 3-0 Yes TAKE 1 [facility] 200 mg 12 2-06 TABLET BY [facility] hr tablet 00:00: MOUTH [place] 00 EVERY DAY Medical IN THE [place] MORNING FOR 90 DAYS buPROPion 3-0 Yes TAKE 1 [facility] 200 mg 12 2-06 TABLET BY [facility] hr tablet 00:00: MOUTH [place] 00 EVERY DAY Medical IN THE [place] MORNING FOR 90 DAYS buPROPion 2023-0 Yes TAKE 1 [facility] 200 mg 12 2-06 TABLET BY [facility] hr tablet 00:00: MOUTH [place] 00 EVERY DAY Medical IN THE [place] MORNING FOR 90 DAYS buPROPion 3-0 Yes TAKE 1 [facility] 200 mg 12 2-06 TABLET BY [facility] hr tablet 00:00: MOUTH [place] 00 EVERY DAY Medical IN THE [place] MORNING FOR 90 DAYS buPROPion 3-0 Yes TAKE 1 [facility] 200 mg 12 2-06 TABLET BY [facility] hr tablet 00:00: MOUTH [place] 00 EVERY DAY Medical IN THE [place] MORNING FOR 90 DAYS buPROPion 3-0 Yes TAKE 1 [facility] 200 mg 12 2-06 TABLET BY [facility] hr tablet 00:00: MOUTH [place] 00 EVERY DAY Medical IN THE [place] MORNING FOR 90 DAYS buPROPion 3-0 Yes TAKE 1 [facility] 200 mg 12 2-06 TABLET BY [facility] hr tablet 00:00: MOUTH [place] 00 EVERY DAY Medical IN THE [place] MORNING FOR 90 DAYS buPROPion 3-0 Yes TAKE 1 [facility] 200 mg 12 2-06 TABLET BY [facility] hr tablet 00:00: MOUTH [place] 00 EVERY DAY Medical IN THE [place] MORNING FOR 90 DAYS buPROPion 3-0 Yes TAKE 1 [facility] 200 mg 12 2-06 TABLET BY [facility] hr tablet 00:00: MOUTH [place] 00 EVERY DAY Medical IN THE [place] MORNING FOR 90 DAYS buPROPion 3-0 Yes TAKE 1 [facility] 200 mg 12 2-06 TABLET BY [facility] hr tablet 00:00: MOUTH [place] 00 EVERY DAY Medical IN THE [place] MORNING FOR 90 DAYS buPROPion 2023-0 Yes TAKE 1 [facility] 200 mg 12 2-06 TABLET BY [facility] hr tablet 00:00: MOUTH [place] 00 EVERY DAY Medical IN THE [place] MORNING FOR 90 DAYS buPROPion 2023-0 Yes TAKE 1 [facility] 200 mg 12 2-06 TABLET BY [facility] hr tablet 00:00: MOUTH [place] 00 EVERY DAY Medical IN THE [place] MORNING FOR 90 DAYS buPROPion 3-0 Yes TAKE 1 [facility] 200 mg 12 2-06 TABLET BY [facility] hr tablet 00:00: MOUTH [place] 00 EVERY DAY Medical IN THE [place] MORNING FOR 90 DAYS buPROPion 3-0 Yes TAKE 1 [facility] 200 mg 12 2-06 TABLET BY [facility] hr tablet 00:00: MOUTH [place] 00 EVERY DAY Medical IN THE [place] MORNING FOR 90 DAYS buPROPion 3-0 Yes TAKE 1 [facility] 200 mg 12 2-06 TABLET BY [facility] hr tablet 00:00: MOUTH [place] 00 EVERY DAY Medical IN THE [place] MORNING FOR 90 DAYS buPROPion 3-0 Yes TAKE 1 [facility] 200 mg 12 2-06 TABLET BY [facility] hr tablet 00:00: MOUTH [place] 00 EVERY DAY Medical IN THE [place] MORNING FOR 90 DAYS buPROPion 3-0 Yes TAKE 1 [facility] 200 mg 12 2-06 TABLET BY [facility] hr tablet 00:00: MOUTH [place] 00 EVERY DAY Medical IN THE [place] MORNING FOR 90 DAYS buPROPion 3-0 Yes TAKE 1 [facility] 200 mg 12 2-06 TABLET BY [facility] hr tablet 00:00: MOUTH [place] 00 EVERY DAY Medical IN THE [place] MORNING FOR 90 DAYS buPROPion 3-0 Yes TAKE 1 [facility] 200 mg 12 2-06 TABLET BY [facility] hr tablet 00:00: MOUTH [place] 00 EVERY DAY Medical IN THE [place] MORNING FOR 90 DAYS buPROPion 3-0 Yes TAKE 1 [facility] 200 mg 12 2-06 TABLET BY [facility] hr tablet 00:00: MOUTH [place] 00 EVERY DAY Medical IN THE [place] MORNING FOR 90 DAYS buPROPion 3-0 Yes TAKE 1 [facility] 200 mg 12 2-06 TABLET BY [facility] hr tablet 00:00: MOUTH [place] 00 EVERY DAY Medical IN THE [place] MORNING FOR 90 DAYS buPROPion 3-0 Yes TAKE 1 [facility] 200 mg 12 2-06 TABLET BY [facility] hr tablet 00:00: MOUTH [place] 00 EVERY DAY Medical IN THE [place] MORNING FOR 90 DAYS buPROPion 3-0 Yes TAKE 1 [facility] 200 mg 12 2-06 TABLET BY [facility] hr tablet 00:00: MOUTH [place] 00 EVERY DAY Medical IN THE [place] MORNING FOR 90 DAYS buPROPion 3-0 Yes TAKE 1 [facility] 200 mg 12 2-06 TABLET BY [facility] hr tablet 00:00: MOUTH [place] 00 EVERY DAY Medical IN THE [place] MORNING FOR 90 DAYS buPROPion 3-0 Yes TAKE 1 [facility] 200 mg 12 2-06 TABLET BY [facility] hr tablet 00:00: MOUTH [place] 00 EVERY DAY Medical IN THE [place] MORNING FOR 90 DAYS buPROPion 2023-0 Yes TAKE 1 [facility] 200 mg 12 2-06 TABLET BY [facility] hr tablet 00:00: MOUTH [place] 00 EVERY DAY Medical IN THE [place] MORNING FOR 90 DAYS buPROPion 3-0 Yes TAKE 1 [facility] 200 mg 12 2-06 TABLET BY [facility] hr tablet 00:00: MOUTH [place] 00 EVERY DAY Medical IN THE [place] MORNING FOR 90 DAYS buPROPion 3-0 Yes TAKE 1 [facility] 200 mg 12 2-06 TABLET BY [facility] hr tablet 00:00: MOUTH [place] 00 EVERY DAY Medical IN THE [place] MORNING FOR 90 DAYS buPROPion 3-0 Yes TAKE 1 [facility] 200 mg 12 2-06 TABLET BY [facility] hr tablet 00:00: MOUTH [place] 00 EVERY DAY Medical IN THE [place] MORNING FOR 90 DAYS buPROPion 3-0 Yes TAKE 1 [facility] 200 mg 12 2-06 TABLET BY [facility] hr tablet 00:00: MOUTH [place] 00 EVERY DAY Medical IN THE [place] MORNING FOR 90 DAYS buPROPion 3-0 Yes TAKE 1 [facility] 200 mg 12 2-06 TABLET BY [facility] hr tablet 00:00: MOUTH [place] 00 EVERY DAY Medical IN THE [place] MORNING FOR 90 DAYS buPROPion 3-0 Yes TAKE 1 [facility] 200 mg 12 2-06 TABLET BY [facility] hr tablet 00:00: MOUTH [place] 00 EVERY DAY Medical IN THE [place] MORNING FOR 90 DAYS buPROPion 3-0 Yes TAKE 1 [facility] 200 mg 12 2-06 TABLET BY [facility] hr tablet 00:00: MOUTH [place] 00 EVERY DAY Medical IN THE [place] MORNING FOR 90 DAYS buPROPion 3-0 Yes TAKE 1 [facility] 200 mg 12 2-06 TABLET BY [facility] hr tablet 00:00: MOUTH [place] 00 EVERY DAY Medical IN THE [place] MORNING FOR 90 DAYS buPROPion 3-0 Yes TAKE 1 [facility] 200 mg 12 2-06 TABLET BY [facility] hr tablet 00:00: MOUTH [place] 00 EVERY DAY Medical IN THE [place] MORNING FOR 90 DAYS buPROPion 3-0 Yes TAKE 1 [facility] 200 mg 12 2-06 TABLET BY [facility] hr tablet 00:00: MOUTH [place] 00 EVERY DAY Medical IN THE [place] MORNING FOR 90 DAYS buPROPion 2023-0 Yes TAKE 1 [facility] 200 mg 12 2-06 TABLET BY [facility] hr tablet 00:00: MOUTH [place] 00 EVERY DAY Medical IN THE [place] MORNING FOR 90 DAYS buPROPion 3-0 Yes TAKE 1 [facility] 200 mg 12 2-06 TABLET BY [facility] hr tablet 00:00: MOUTH [place] 00 EVERY DAY Medical IN THE [place] MORNING FOR 90 DAYS buPROPion 3-0 Yes TAKE 1 [facility] 200 mg 12 2-06 TABLET BY [facility] hr tablet 00:00: MOUTH [place] 00 EVERY DAY Medical IN THE [place] MORNING FOR 90 DAYS buPROPion 3-0 Yes TAKE 1 [facility] 200 mg 12 2-06 TABLET BY [facility] hr tablet 00:00: MOUTH [place] 00 EVERY DAY Medical IN THE [place] MORNING FOR 90 DAYS buPROPion 3-0 Yes TAKE 1 [facility] 200 mg 12 2-06 TABLET BY [facility] hr tablet 00:00: MOUTH [place] 00 EVERY DAY Medical IN THE [place] MORNING FOR 90 DAYS buPROPion 3-0 Yes TAKE 1 [facility] 200 mg 12 2-06 TABLET BY [facility] hr tablet 00:00: MOUTH [place] 00 EVERY DAY Medical IN THE [place] MORNING FOR 90 DAYS buPROPion 3-0 Yes TAKE 1 [facility] 200 mg 12 2-06 TABLET BY [facility] o [facility] hr tablet 00:00: MOUTH [place] 00 EVERY DAY Medical IN THE [place] MORNING FOR 90 DAYS buPROPion 3-0 Yes TAKE 1 [facility] 200 mg 12 2-06 TABLET BY [facility] o [facility] hr tablet 00:00: MOUTH [place] 00 EVERY DAY Medical IN THE [place] MORNING FOR 90 DAYS buPROPion 2023-0 Yes TAKE 1 [facility] 200 mg 12 2-06 TABLET BY [facility] o [facility] hr tablet 00:00: MOUTH [place] 00 EVERY DAY Medical IN THE [place] MORNING FOR 90 DAYS buPROPion 2023-0 Yes TAKE 1 [facility] 200 mg 12 2-06 TABLET BY [facility] o [facility] hr tablet 00:00: MOUTH [place] 00 EVERY DAY Medical IN THE [place] MORNING FOR 90 DAYS buPROPion 0 Yes TAKE 1 [facility] 200 mg 12 2-06 TABLET BY it[facility] o [facility] hr tablet 00:00: MOUTH [place] 00 EVERY DAY Medical IN THE [place] MORNING FOR 90 DAYS lisinopriL- 2022-0 Yes [id number] 1{tbl} Take 1 [facility] hydrochloro 1-26 tablet by ity of thiazide 00:00: mouth in [place] 20-12.5 mg 00 the Medical per tablet morning. [facility] lisinopriL- 2022-0 Yes [id number] 1{tbl} Take 1 [facility] hydrochloro 1-26 tablet by ity of thiazide 00:00: mouth in [place] 20-12.5 mg 00 the Medical per tablet morning. [facility] lisinopriL- 2022-0 Yes [id number] 1{tbl} Take 1 [facility] hydrochloro 1-26 tablet by ity of thiazide 00:00: mouth in [place] 20-12.5 mg 00 the Medical per tablet morning. [facility] lisinopriL- 3-0 Yes [id number] 1{tbl} Take 1 [facility] hydrochloro 1-26 tablet by ity of thiazide 00:00: mouth in [place] 20-12.5 mg 00 the Medical per tablet morning. [facility] lisinopriL- 3-0 Yes [id number] 1{tbl} Take 1 [facility] hydrochloro 1-26 tablet by ity of thiazide 00:00: mouth in [place] 20-12.5 mg 00 the Medical per tablet morning. [facility] lisinopriL- 3-0 Yes [id number] 1{tbl} Take 1 [facility] hydrochloro 1-26 tablet by ity of thiazide 00:00: mouth in [place] 20-12.5 mg 00 the Medical per tablet morning. [facility] lisinopriL- 3-0 Yes [id number] 1{tbl} Take 1 [facility] hydrochloro 1-26 tablet by ity of thiazide 00:00: mouth in [place] 20-12.5 mg 00 the Medical per tablet morning[facility]- 3-0 Yes [id number] 1{tbl} Take 1 [facility] hydrochloro 1-26 tablet by ity of thiazide 00:00: mouth in [place] 20-12.5 mg 00 the Medical per tablet morning. [facility] lisinopriL- 2022-0 Yes [id number] 1{tbl} Take 1 [facility] hydrochloro 1-26 tablet by ity of thiazide 00:00: mouth in [place] 20-12.5 mg 00 the Medical per tablet morning. [facility] lisinopriL- 2022-0 Yes [id number] 1{tbl} Take 1 [facility] hydrochloro 1-26 tablet by ity of thiazide 00:00: mouth in [place] 20-12.5 mg 00 the Medical per tablet morning. [facility] lisinopriL- 2022-0 Yes [id number] 1{tbl} Take 1 [facility] hydrochloro 1-26 tablet by ity of thiazide 00:00: mouth in [place] 20-12.5 mg 00 the Medical per tablet morning. [facility] lisinopriL- 2022-0 Yes [id number] 1{tbl} Take 1 [facility] hydrochloro 1-26 tablet by ity of thiazide 00:00: mouth in [place] 20-12.5 mg 00 the Medical per tablet morning. [facility] lisinopriL- 2022-0 Yes [id number] 1{tbl} Take 1 [facility] hydrochloro 1-26 tablet by ity of thiazide 00:00: mouth in [place] 20-12.5 mg 00 the Medical per tablet morning. [facility] lisinopriL- 2022-0 Yes [id number] 1{tbl} Take 1 [facility] hydrochloro 1-26 tablet by ity of thiazide 00:00: mouth in [place] 20-12.5 mg 00 the Medical per tablet morning. [facility] lisinopriL- 2022-0 Yes [id number] 1{tbl} Take 1 [facility] hydrochloro 1-26 tablet by ity of thiazide 00:00: mouth in [place] 20-12.5 mg 00 the Medical per tablet morning. [facility] lisinopriL- 2022-0 Yes [id number] 1{tbl} Take 1 [facility] hydrochloro 1-26 tablet by ity of thiazide 00:00: mouth in [place] 20-12.5 mg 00 the Medical per tablet morning. [facility] hydrOXYchlo 2022-0 Yes [id number] 400mg Take 2 [facility] roQUINE 200 1-26 tablets by it y [facility] mg tablet 00:00: [facility] morning. [facility] methotrexat 0 Yes [id number] 20mg Take 8 [facility] e 2.5 mg 1-26 tablets by ity o f tablet 00:00: mouth weekly Medical Take 4 Branch pills in the morning and 4 pills in the evening lisinopriL- 2023-0 Yes [id number] 1{tbl} Take 1 [facility] hydrochloro 1-26 tablet by ity of thiazide 00:00: mouth in [place] 20-12.5 mg 00 the Medical per tablet morning. [facility] hydrOXYchlo 2023-0 Yes [id number] 400mg Take 2 [facility] roQUINE 200 1-26 tablets by it y of mg tablet 00:00: mouth in the Medical morning. Branch methotrexat 2023-0 Yes [id number] 20mg Take 8 [facility] e 2.5 mg 1-26 tablets by ity o f tablet 00:00: mouth weekly Medical Take 4 Branch pills in the morning and 4 pills in the evening lisinopriL- 2023-0 Yes [id number] 1{tbl} Take 1 [facility] hydrochloro 1-26 tablet by ity of thiazide 00:00: mouth in [place] 20-12.5 mg 00 the Medical per tablet morning. [facility] hydrOXYchlo 3-0 Yes [id number] 400mg Take 2 [facility] roQUINE 200 1-26 tablets by it y of mg tablet 00:00: mouth in the Medical morning. [facility] methotrexat 3-0 Yes [id number] 20mg Take 8 [facility] e 2.5 mg 1-26 tablets by ity o f tablet 00:00: mouth weekly Medical Take 4 Branch pills in the morning and 4 pills in the evening lisinopriL- 2023-0 Yes [id number] 1{tbl} Take 1 [facility] hydrochloro 1-26 tablet by ity of thiazide 00:00: mouth in [place] 20-12.5 mg 00 the Medical per tablet morning. [facility] hydrOXYchlo 2023-0 Yes [id number] 400mg Take 2 [facility] roQUINE 200 1-26 tablets by it y of mg tablet 00:[place]: [place] the Medical morning. [facility] methotrexat 2023-0 Yes [id number] 20mg Take 8 [facility] e 2.5 mg 1-26 tablets by ity o f tablet 00:00: mouth weekly Medical Take 4 Branch pills in the morning and 4 pills in the evening lisinopriL- 2023-0 Yes [id number] 1{tbl} Take 1 [facility] hydrochloro 1-26 tablet by ity of thiazide 00:00: mouth in [place] 20-12.5 mg 00 the Medical per tablet morning. [facility] hydrOXYchlo 3-0 Yes [id number] 400mg Take 2 [facility] roQUINE 200 1-26 tablets by [facility] y of mg tablet 00:[place]: [place] the Medical morning. [facility] methotrexat 3-0 Yes [id number] 20mg Take 8 [facility] e 2.5 mg 1-26 tablets by ity o f tablet 00:00: mouth weekly Medical Take 4 Branch pills in the morning and 4 pills in the evening lisinopriL- 2023-0 Yes [id number] 1{tbl} Take 1 [facility] hydrochloro 1-26 tablet by ity of thiazide 00:00: mouth in [place] 20-12.5 mg 00 the Medical per tablet morning. [facility] hydrOXYchlo 2022-0 Yes [id number] 400mg Take 2 [facility] roQUINE 200 1-26 tablets by it y of mg tablet 00:00: [place] the Medical morning. [facility] methotrexat 3-0 Yes [id number] 20mg Take 8 [facility] e 2.5 mg 1-26 tablets by ity o f tablet 00:00: mouth [place] weekly Medical Take 4 Branch pills in the morning and 4 pills in the evening lisinopriL- 2023-0 Yes [id number] 1{tbl} Take 1 [facility] hydrochloro 1-26 tablet by ity of thiazide 00:00: mouth in [place] 20-12.5 mg 00 the Medical per tablet morning. [facility] hydrOXYchlo 3-0 Yes [id number] 400mg Take 2 [facility] roQUINE 200 1-26 tablets by it y of mg tablet 00:00: mouth [place] 00 the Medical morning. [facility] methotrexat 3-0 Yes [id number] 20mg Take 8 [facility] e 2.5 mg 1-26 tablets by ity o f tablet 00:00: mouth [place] 00 weekly Medical Take 4 Branch pills in the morning and 4 pills in the evening lisinopriL- 2023-0 Yes [id number] 1{tbl} Take 1 [facility] hydrochloro 1-26 tablet by ity of thiazide 00:00: mouth in [place] 20-12.5 mg 00 the Medical per tablet morning. [facility] hydrOXYchlo 2023-0 Yes [id number] 400mg Take 2 [facility] roQUINE 200 1-26 tablets by it y of mg tablet 00:00: mouth in the Medical morning. Branch methotrexat 2023-0 Yes [id number] 20mg Take 8 [facility] e 2.5 mg 1-26 tablets by ity o f tablet 00:00: mouth [place] weekly Medical Take 4 Branch pills in the morning and 4 pills in the evening lisinopriL- 2023-0 Yes [id number] 1{tbl} Take 1 [facility] hydrochloro 1-26 tablet by ity of thiazide 00:00: mouth in [place] 20-12.5 mg 00 the Medical per tablet morning. [facility] h hydrOXYchlo 2023-0 Yes [id number] 400mg Take 2 [facility] roQUINE 200 1-26 tablets by it y of mg tablet 00:00: mouth in [facility] the Medical morning. Branch methotrexat 2023-0 Yes [id number] 20mg Take 8 [facility] e 2.5 mg 1-26 tablets by ity o f tablet 00:00: mouth [place] weekly Medical Take 4 Branch pills in the morning and 4 pills in the evening lisinopriL- 2023-0 Yes [id number] 1{tbl} Take 1 [facility] hydrochloro 1-26 tablet by ity of thiazide 00:00: mouth in [place] 20-12.5 mg 00 the Medical per tablet morning. [facility] h hydrOXYchlo 2023-0 Yes [id number] 400mg Take 2 [facility] roQUINE 200 1-26 tablets by it y of mg tablet 00:00: mouth in [facility] the Medical morning. Branch methotrexat 2023-0 Yes [id number] 20mg Take 8 [facility] e 2.5 mg 1-26 tablets by ity o f tablet 00:00: mouth [place] weekly Medical Take 4 Branch pills in the morning and 4 pills in the evening lisinopriL- 2023-0 Yes [id number] 1{tbl} Take 1 [facility] hydrochloro 1-26 tablet by ity of thiazide 00:00: mouth in [place] 20-12.5 mg 00 the Medical per tablet morning. [facility] hydrOXYchlo 2023-0 Yes [id number] 400mg Take 2 [facility] roQUINE 200 1-26 tablets by it y of mg tablet 00:00: mouth in the Medical morning. Branch methotrexat 2023-0 Yes [id number] 20mg Take 8 [facility] e 2.5 mg 1-26 tablets by ity o f tablet 00:00: mouth weekly Medical Take 4 Branch pills in the morning and 4 pills in the evening lisinopriL- 2023-0 Yes [id number] 1{tbl} Take 1 [facility] hydrochloro 1-26 tablet by ity of thiazide 00:00: mouth in [place] 20-12.5 mg 00 the Medical per tablet morning. [facility] h hydrOXYchlo 2023-0 Yes [id number] 400mg Take 2 [facility] roQUINE 200 1-26 tablets by it y of mg tablet 00:00: mouth in the Medical morning. Branch methotrexat 2023-0 Yes [id number] 20mg Take 8 [facility] e 2.5 mg 1-26 tablets by ity o f tablet 00:00: mouth weekly Medical Take 4 Branch pills in the morning and 4 pills in the evening lisinopriL- 2023-0 Yes [id number] 1{tbl} Take 1 [facility] hydrochloro 1-26 tablet by ity of thiazide 00:00: mouth in [place] 20-12.5 mg 00 the Medical per tablet morning. [facility] hydrOXYchlo 2023-0 Yes [id number] 400mg Take 2 [facility] roQUINE 200 1-26 tablets by it y of mg tablet 00:00: mouth in the Medical morning. Branch methotrexat 2023-0 Yes [id number] 20mg Take 8 [facility] e 2.5 mg 1-26 tablets by ity o f tablet 00:00: mouth [place] weekly Medical Take 4 Branch pills in the morning and 4 pills in the evening lisinopriL- 2023-0 Yes [id number] 1{tbl} Take 1 [facility] hydrochloro 1-26 tablet by ity of thiazide 00:00: mouth in [place] 20-12.5 mg 00 the Medical per tablet morning. [facility] h hydrOXYchlo 2023-0 Yes [id number] 400mg Take 2 [facility] roQUINE 200 1-26 tablets by it y of mg tablet 00:00: mouth in [place] the Medical morning. [facility] methotrexat 2023-0 Yes [id number] 20mg Take 8 [facility] e 2.5 mg 1-26 tablets by ity o f tablet 00:00: mouth weekly Medical Take 4 Branch pills in the morning and 4 pills in the evening lisinopriL- 2023-0 Yes [id number] 1{tbl} Take 1 [facility] hydrochloro 1-26 tablet by ity of thiazide 00:00: mouth in [place] 20-12.5 mg 00 the Medical per tablet morning. [facility] hydrOXYchlo 2023-0 Yes [id number] 400mg Take 2 [facility] roQUINE 200 1-26 tablets by it y of mg tablet 00:00: mouth in [place] the Medical morning. [facility] methotrexat 2023-0 Yes [id number] 20mg Take 8 [facility] e 2.5 mg 1-26 tablets by ity o f tablet 00:00: mouth weekly Medical Take 4 Branch pills in the morning and 4 pills in the evening lisinopriL- 2023-0 Yes [id number] 1{tbl} Take 1 [facility] hydrochloro 1-26 tablet by ity of thiazide 00:00: mouth in [place] 20-12.5 mg 00 the Medical per tablet morning. [facility] h hydrOXYchlo 3-0 Yes [id number] 400mg Take 2 [facility] roQUINE 200 1-26 tablets by it y of mg tablet 00:00: mouth in the Medical morning. Branch methotrexat 3-0 Yes [id number] 20mg Take 8 [facility] e 2.5 mg 1-26 tablets by ity o f tablet 00:00: mouth weekly Medical Take 4 Branch pills in the morning and 4 pills in the evening lisinopriL- 2023-0 Yes [id number] 1{tbl} Take 1 [facility] hydrochloro 1-26 tablet by ity of thiazide 00:00: mouth in [place] 20-12.5 mg 00 the Medical per tablet morning. [facility] hydrOXYchlo 2023-0 Yes [id number] 400mg Take 2 [facility] roQUINE 200 1-26 tablets by it y of mg tablet 00:00: mouth [place] the Medical morning. [facility] methotrexat 2023-0 Yes [id number] 20mg Take 8 [facility] e 2.5 mg 1-26 tablets by ity o f tablet 00:00: mouth weekly Medical Take 4 Branch pills in the morning and 4 pills in the evening lisinopriL- 2023-0 Yes [id number] 1{tbl} Take 1 [facility] hydrochloro 1-26 tablet by ity of thiazide 00:00: mouth in [place] 20-12.5 mg 00 the Medical per tablet morning. [facility] hydrOXYchlo 3-0 Yes [id number] 400mg Take 2 [facility] roQUINE 200 1-26 tablets by it y of mg tablet 00:00: [place] 00 the Medical morning. [facility] methotrexat 2023-0 Yes [id number] 20mg Take 8 [facility] e 2.5 mg 1-26 tablets by ity o f tablet 00:00: mouth [place] 00 weekly Medical Take 4 Branch pills in the morning and 4 pills in the evening lisinopriL- 2023-0 Yes [id number] 1{tbl} Take 1 [facility] hydrochloro 1-26 tablet by ity of thiazide 00:00: mouth in [place] 20-12.5 mg 00 the Medical per tablet morning. [facility] hydrOXYchlo 3-0 Yes [id number] 400mg Take 2 [facility] roQUINE 200 1-26 tablets by it y of mg tablet 00:00: mouth in [facility] 00 the Medical morning. Branch methotrexat 3-0 Yes [id number] 20mg Take 8 [facility] e 2.5 mg 1-26 tablets by ity o f tablet 00:00: mouth [place] 00 weekly Medical Take 4 Branch pills in the morning and 4 pills in the evening lisinopriL- 2023-0 Yes [id number] 1{tbl} Take 1 [facility] hydrochloro 1-26 tablet by ity of thiazide 00:00: mouth in [place] 20-12.5 mg 00 the Medical per tablet morning. [facility] hydrOXYchlo 3-0 Yes [id number] 400mg Take 2 [facility] roQUINE 200 1-26 tablets by it y of mg tablet 00:00: mouth [place] 00 the Medical morning. [facility] methotrexat 2023-0 Yes [id number] 20mg Take 8 [facility] e 2.5 mg 1-26 tablets by ity o f tablet 00:00: mouth [place] 00 weekly Medical Take 4 Branch pills in the morning and 4 pills in the evening lisinopriL- 2023-0 Yes [id number] 1{tbl} Take 1 [facility] hydrochloro 1-26 tablet by ity of thiazide 00:00: mouth in [place] 20-12.5 mg 00 the Medical per tablet morning. [facility] hydrOXYchlo 2023-0 Yes [id number] 400mg Take 2 [facility] roQUINE 200 1-26 tablets by it y of mg tablet 00:00: mouth in the Medical morning. [facility] methotrexat 3-0 Yes [id number] 20mg Take 8 [facility] e 2.5 mg 1-26 tablets by ity o f tablet 00:00: mouth weekly Medical Take 4 Branch pills in the morning and 4 pills in the evening lisinopriL- 2023-0 Yes [id number] 1{tbl} Take 1 [facility] hydrochloro 1-26 tablet by ity of thiazide 00:00: mouth in [place] 20-12.5 mg 00 the Medical per tablet morning. [facility] h hydrOXYchlo 3-0 Yes [id number] 400mg Take 2 [facility] roQUINE 200 1-26 tablets by it y of mg tablet 00:00: mouth in the Medical morning. Branch methotrexat 3-0 Yes [id number] 20mg Take 8 [facility] e 2.5 mg 1-26 tablets by ity o f tablet 00:00: mouth weekly Medical Take 4 Branch pills in the morning and 4 pills in the evening lisinopriL- 2023-0 Yes [id number] 1{tbl} Take 1 [facility] hydrochloro 1-26 tablet by ity of thiazide 00:00: mouth in [place] 20-12.5 mg 00 the Medical per tablet morning. [facility] hydrOXYchlo 3-0 Yes [id number] 400mg Take 2 [facility] roQUINE 200 1-26 tablets by it y of mg tablet 00:00: mouth in [facility] the Medical morning. Branch methotrexat 3-0 Yes [id number] 20mg Take 8 [facility] e 2.5 mg 1-26 tablets by ity o f tablet 00:00: mouth 00 weekly Medical Take 4 Branch pills in the morning and 4 pills in the evening lisinopriL- 2023-0 Yes [id number] 1{tbl} Take 1 [facility] hydrochloro 1-26 tablet by ity of thiazide 00:00: mouth in [place] 20-12.5 mg 00 the Medical per tablet morning. [facility] hydrOXYchlo 3-0 Yes [id number] 400mg Take 2 [facility] roQUINE 200 1-26 tablets by it y of mg tablet 00:[place] the Medical morning. Branch methotrexat 2023-0 Yes [id number] 20mg Take 8 [facility] e 2.5 mg 1-26 tablets by ity o f tablet 00:00: mouth weekly Medical Take 4 Branch pills in the morning and 4 pills in the evening lisinopriL- 2023-0 Yes [id number] 1{tbl} Take 1 [facility] hydrochloro 1-26 tablet by ity of thiazide 00:00: mouth in [place] 20-12.5 mg 00 the Medical per tablet morning. [facility] h hydrOXYchlo 2023-0 Yes [id number] 400mg Take 2 [facility] roQUINE 200 1-26 tablets by it y of mg tablet 00:00: mouth in [place] the Medical morning. Branch methotrexat 2023-0 Yes [id number] 20mg Take 8 [facility] e 2.5 mg 1-26 tablets by ity o f tablet 00:00: mouth [place] weekly Medical Take 4 Branch pills in the morning and 4 pills in the evening lisinopriL- 2023-0 Yes [id number] 1{tbl} Take 1 [facility] hydrochloro 1-26 tablet by ity of thiazide 00:00: mouth in [place] 20-12.5 mg 00 the Medical per tablet morning. [facility] hydrOXYchlo 2023-0 Yes [id number] 400mg Take 2 [facility] roQUINE 200 1-26 tablets by it y of mg tablet 00:00: mouth in [facility] the Medical morning. Branch methotrexat 2023-0 Yes [id number] 20mg Take 8 [facility] e 2.5 mg 1-26 tablets by ity o f tablet 00:00: mouth [place] weekly Medical Take 4 Branch pills in the morning and 4 pills in the evening lisinopriL- 2023-0 Yes [id number] 1{tbl} Take 1 [facility] hydrochloro 1-26 tablet by ity of thiazide 00:00: mouth in [place] 20-12.5 mg 00 the Medical per tablet morning. [facility] h hydrOXYchlo 2023-0 Yes [id number] 400mg Take 2 [facility] roQUINE 200 1-26 tablets by it y [place] mg tablet 00:00: [place] the Medical morning. Branch methotrexat 2023-0 Yes [id number] 20mg Take 8 [facility] e 2.5 mg 1-26 tablets by ity o f tablet 00:00: mouth weekly Medical Take 4 Branch pills in the morning and 4 pills in the evening lisinopriL- 2023-0 Yes [id number] 1{tbl} Take 1 [facility] hydrochloro 1-26 tablet by ity of thiazide 00:00: mouth in [place] 20-12.5 mg 00 the Medical per tablet morning. [facility] h hydrOXYchlo 2023-0 Yes [id number] 400mg Take 2 [facility] roQUINE 200 1-26 tablets by it y of mg tablet 00:00: mouth in the Medical morning. Branch methotrexat 2023-0 Yes [id number] 20mg Take 8 [facility] e 2.5 mg 1-26 tablets by ity o f tablet 00:00: mouth weekly Medical Take 4 Branch pills in the morning and 4 pills in the evening lisinopriL- 2023-0 Yes [id number] 1{tbl} Take 1 [facility] hydrochloro 1-26 tablet by ity of thiazide 00:00: mouth in [place] 20-12.5 mg 00 the Medical per tablet morning. [facility] hydrOXYchlo 2023-0 Yes [id number] 400mg Take 2 [facility] roQUINE 200 1-26 tablets by it y of mg tablet 00:00: mouth in [facility] the Medical morning. Branch methotrexat 2023-0 Yes [id number] 20mg Take 8 [facility] e 2.5 mg 1-26 tablets by ity o f tablet 00:00: mouth weekly Medical Take 4 Branch pills in the morning and 4 pills in the evening lisinopriL- 2023-0 Yes [id number] 1{tbl} Take 1 [facility] hydrochloro 1-26 tablet by ity of thiazide 00:00: mouth in [place] 20-12.5 mg 00 the Medical per tablet morning. [facility] h hydrOXYchlo 2023-0 Yes [id number] 400mg Take 2 [facility] roQUINE 200 1-26 tablets by it y of mg tablet 00:00: [place] the Medical morning. Branch methotrexat 2023-0 Yes [id number] 20mg Take 8 [facility] e 2.5 mg 1-26 tablets by ity o f tablet 00:00: mouth [place] weekly Medical Take 4 Branch pills in the morning and 4 pills in the evening lisinopriL- 2023-0 Yes [id number] 1{tbl} Take 1 [facility] hydrochloro 1-26 tablet by ity of thiazide 00:00: mouth in [place] 20-12.5 mg 00 the Medical per tablet morning. [facility] h hydrOXYchlo 2023-0 Yes [id number] 400mg Take 2 [facility] roQUINE 200 1-26 tablets by it y of mg tablet 00:00: mouth in [facility] the Medical morning. Branch methotrexat 2023-0 Yes [id number] 20mg Take 8 [facility] e 2.5 mg 1-26 tablets by ity o f tablet 00:00: mouth [place] 00 weekly Medical Take 4 Branch pills in the morning and 4 pills in the evening lisinopriL- 2023-0 Yes [id number] 1{tbl} Take 1 [facility] hydrochloro 1-26 tablet by ity of thiazide 00:00: mouth in [place] 20-12.5 mg 00 the Medical per tablet morning. [facility] hydrOXYchlo 3-0 Yes [id number] 400mg Take 2 [facility] roQUINE 200 1-26 tablets by it y of mg tablet 00:00: mouth in [facility] the Medical morning. Branch methotrexat 2023-0 Yes [id number] 20mg Take 8 [facility] e 2.5 mg 1-26 tablets by ity o f tablet 00:00: mouth [place] weekly Medical Take 4 Branch pills in the morning and 4 pills in the evening lisinopriL- 2023-0 Yes [id number] 1{tbl} Take 1 [facility] hydrochloro 1-26 tablet by ity of thiazide 00:00: mouth in [place] 20-12.5 mg 00 the Medical per tablet morning. [facility] hydrOXYchlo 3-0 Yes [id number] 400mg Take 2 [facility] roQUINE 200 1-26 tablets by it y of mg tablet 00:00: mouth in [facility] 00 the Medical morning. Branch methotrexat 2023-0 Yes [id number] 20mg Take 8 [facility] e 2.5 mg 1-26 tablets by ity o f tablet 00:00: mouth [place] 00 weekly Medical Take 4 Branch pills in the morning and 4 pills in the evening lisinopriL- 2023-0 Yes [id number] 1{tbl} Take 1 [facility] hydrochloro 1-26 tablet by ity of thiazide 00:00: mouth in [place] 20-12.5 mg 00 the Medical per tablet morning. [facility] hydrOXYchlo 2023-0 Yes [id number] 400mg Take 2 [facility] roQUINE 200 1-26 tablets by it y of mg tablet 00:00: mouth in the Medical morning. Branch methotrexat 2023-0 Yes [id number] 20mg Take 8 [facility] e 2.5 mg 1-26 tablets by ity o f tablet 00:00: mouth weekly Medical Take 4 Branch pills in the morning and 4 pills in the evening lisinopriL- 2023-0 Yes [id number] 1{tbl} Take 1 [facility] hydrochloro 1-26 tablet by ity of thiazide 00:00: mouth in [place] 20-12.5 mg 00 the Medical per tablet morning. [facility] h hydrOXYchlo 3-0 Yes [id number] 400mg Take 2 [facility] roQUINE 200 1-26 tablets by it y of mg tablet 00:00: mouth in [place] the Medical morning. Branch methotrexat 2023-0 Yes [id number] 20mg Take 8 [facility] e 2.5 mg 1-26 tablets by ity o f tablet 00:00: mouth weekly Medical Take 4 Branch pills in the morning and 4 pills in the evening lisinopriL- 2023-0 Yes [id number] 1{tbl} Take 1 [facility] hydrochloro 1-26 tablet by ity of thiazide 00:00: mouth in [place] 20-12.5 mg 00 the Medical per tablet morning. [facility] h hydrOXYchlo 3-0 Yes [id number] 400mg Take 2 [facility] roQUINE 200 1-26 tablets by it y of mg tablet 00:00: mouth in the Medical morning. Branch methotrexat 2023-0 Yes [id number] 20mg Take 8 [facility] e 2.5 mg 1-26 tablets by ity o f tablet 00:00: mouth weekly Medical Take 4 Branch pills in the morning and 4 pills in the evening lisinopriL- 2023-0 Yes [id number] 1{tbl} Take 1 [facility] hydrochloro 1-26 tablet by ity of thiazide 00:00: mouth in [place] 20-12.5 mg 00 the Medical per tablet morning. [facility] h hydrOXYchlo 2023-0 Yes [id number] 400mg Take 2 [facility] roQUINE 200 1-26 tablets by it y of mg tablet 00:00: [place] the Medical morning. Branch methotrexat 2023-0 Yes [id number] 20mg Take 8 [facility] e 2.5 mg 1-26 tablets by ity o f tablet 00:00: mouth weekly Medical Take 4 Branch pills in the morning and 4 pills in the evening lisinopriL- 2023-0 Yes [id number] 1{tbl} Take 1 [facility] hydrochloro 1-26 tablet by ity of thiazide 00:00: mouth in [place] 20-12.5 mg 00 the Medical per tablet morning. [facility] h hydrOXYchlo 2023-0 Yes [id number] 400mg Take 2 [facility] roQUINE 200 1-26 tablets by it y of mg tablet 00:00: mouth in [place] the Medical morning. Branch methotrexat 2023-0 Yes [id number] 20mg Take 8 [facility] e 2.5 mg 1-26 tablets by ity o f tablet 00:00: mouth weekly Medical Take 4 Branch pills in the morning and 4 pills in the evening lisinopriL- 2023-0 Yes [id number] 1{tbl} Take 1 [facility] hydrochloro 1-26 tablet by ity of thiazide 00:00: mouth in [place] 20-12.5 mg 00 the Medical per tablet morning. [facility] h hydrOXYchlo 2023-0 Yes [id number] 400mg Take 2 [facility] roQUINE 200 1-26 tablets by it y of mg tablet 00:00: mouth in the Medical morning. Branch methotrexat 2023-0 Yes [id number] 20mg Take 8 [facility] e 2.5 mg 1-26 tablets by ity o f tablet 00:00: mouth weekly Medical Take 4 Branch pills in the morning and 4 pills in the evening lisinopriL- 2023-0 Yes [id number] 1{tbl} Take 1 [facility] hydrochloro 1-26 tablet by ity of thiazide 00:00: mouth in [place] 20-12.5 mg 00 the Medical per tablet morning. [facility] h hydrOXYchlo 2023-0 Yes [id number] 400mg Take 2 [facility] roQUINE 200 1-26 tablets by it y of mg tablet 00:00: [place] the Medical morning. Branch methotrexat 2023-0 Yes [id number] 20mg Take 8 [facility] e 2.5 mg 1-26 tablets by ity o f tablet 00:00: mouth weekly Medical Take 4 Branch pills in the morning and 4 pills in the evening lisinopriL- 2023-0 Yes [id number] 1{tbl} Take 1 [facility] hydrochloro 1-26 tablet by ity of thiazide 00:00: mouth in [place] 20-12.5 mg 00 the Medical per tablet morning. [facility] hydrOXYchlo 3-0 Yes [id number] 400mg Take 2 [facility] roQUINE 200 1-26 tablets by it y of mg tablet 00:00: mouth in [facility] s the Medical morning. Branch methotrexat 2023-0 Yes [id number] 20mg Take 8 [facility] e 2.5 mg 1-26 tablets by ity o f tablet 00:00: mouth [place] weekly Medical Take 4 Branch pills in the morning and 4 pills in the evening lisinopriL- 2023-0 Yes [id number] 1{tbl} Take 1 [facility] hydrochloro 1-26 tablet by ity of thiazide 00:00: mouth in [place] 20-12.5 mg 00 the Medical per tablet morning. [facility] hydrOXYchlo 3-0 Yes [id number] 400mg Take 2 [facility] roQUINE 200 1-26 tablets by it y of mg tablet 00:00: mouth in [facility] s the Medical morning. Branch methotrexat 3-0 Yes [id number] 20mg Take 8 [facility] e 2.5 mg 1-26 tablets by ity o f tablet 00:00: mouth [place] weekly Medical Take 4 Branch pills in the morning and 4 pills in the evening lisinopriL- 2023-0 Yes [id number] 1{tbl} Take 1 [facility] hydrochloro 1-26 tablet by ity of thiazide 00:00: mouth in [place] 20-12.5 mg 00 the Medical per tablet morning. [facility] hydrOXYchlo 3-0 Yes [id number] 400mg Take 2 [facility] roQUINE 200 1-26 tablets by it y of mg tablet 00:00: [place] the Medical morning. Branch methotrexat 2023-0 Yes [id number] 20mg Take 8 [facility] e 2.5 mg 1-26 tablets by ity o f tablet 00:00: mouth [place] weekly Medical Take 4 Branch pills in the morning and 4 pills in the evening lisinopriL- 2023-0 Yes [id number] 1{tbl} Take 1 [facility] hydrochloro 1-26 tablet by ity of thiazide 00:00: mouth in [place] 20-12.5 mg 00 the Medical per tablet morning. [facility] hydrOXYchlo 3-0 Yes [id number] 400mg Take 2 [facility] roQUINE 200 1-26 tablets by it y of mg tablet 00:00: mouth in the Medical morning. Branch methotrexat 3-0 Yes [id number] 20mg Take 8 [facility] e 2.5 mg 1-26 tablets by ity o f tablet 00:00: mouth [place] weekly Medical Take 4 Branch pills in the morning and 4 pills in the evening lisinopriL- 2023-0 Yes [id number] 1{tbl} Take 1 [facility] hydrochloro 1-26 tablet by ity of thiazide 00:00: mouth in [place] 20-12.5 mg 00 the Medical per tablet morning. [facility] hydrOXYchlo 3-0 Yes [id number] 400mg Take 2 [facility] roQUINE 200 1-26 tablets by it y of mg tablet 00:00: mouth in the Medical morning. Branch methotrexat 3-0 Yes [id number] 20mg Take 8 [facility] e 2.5 mg 1-26 tablets by ity o f tablet 00:00: mouth [place] weekly Medical Take 4 Branch pills in the morning and 4 pills in the evening lisinopriL- 2023-0 Yes [id number] 1{tbl} Take 1 [facility] hydrochloro 1-26 tablet by ity of thiazide 00:00: mouth in [place] 20-12.5 mg 00 the Medical per tablet morning. [facility] hydrOXYchlo 3-0 Yes [id number] 400mg Take 2 [facility] roQUINE 200 1-26 tablets by it y of mg tablet 00:00: mouth in [facility] the Medical morning. Branch lisinopriL- 2023-0 Yes [id number] 1{tbl} Take 1 [facility] hydrochloro 1-26 tablet by ity of thiazide 00:00: mouth in [place] 20-12.5 mg 00 the Medical per tablet morning. [facility] hydrOXYchlo 2023-0 Yes [id number] 400mg Take 2 [facility] roQUINE 200 1-26 tablets by it y of mg tablet 00:00: mouth in [facility] s the Medical morning. Branch lisinopriL- 2023-0 Yes [id number] 1{tbl} Take 1 [facility] hydrochloro 1-26 tablet by ity of thiazide 00:00: mouth in [place] 20-12.5 mg 00 the Medical per tablet morning. [facility] hydrOXYchlo 2023-0 Yes [id number] 400mg Take 2 [facility] roQUINE 200 1-26 tablets by it y of mg tablet 00:00: [place] the Medical morning. Branch lisinopriL- 2023-0 Yes [id number] 1{tbl} Take 1 [facility] hydrochloro 1-26 tablet by ity of thiazide 00:00: mouth in [place] 20-12.5 mg 00 the Medical per tablet morning. [facility] hydrOXYchlo 3-0 Yes [id number] 400mg Take 2 [facility] roQUINE 200 1-26 tablets by it y of mg tablet 00:00: [place] 00 the Medical morning. [place] lisinopriL- 2023-0 Yes [id number] 1{tbl} Take 1 [facility] hydrochloro 1-26 tablet by ity of thiazide 00:00: mouth in [place] 20-12.5 mg 00 the Medical per tablet morning. [facility] hydrOXYchlo 3-0 Yes [id number] 400mg Take 2 [facility] roQUINE 200 1-26 tablets by it y of mg tablet 00:00: [place] 00 the Medical morning. [place] lisinopriL- 2023-0 Yes [id number] 1{tbl} Take 1 [facility] hydrochloro 1-26 tablet by ity of thiazide 00:00: mouth in [place] 20-12.5 mg 00 the Medical per tablet morning. [facility] hydrOXYchlo 3-0 Yes [id number] 400mg Take 2 [facility] roQUINE 200 1-26 tablets by it y of mg tablet 00:00: mouth [place] 00 the Medical morning. [place] lisinopriL- 2023-0 Yes [id number] 1{tbl} Take 1 [facility] hydrochloro 1-26 tablet by ity of thiazide 00:00: mouth in [place] 20-12.5 mg 00 the Medical per tablet morning. [facility] lisinopriL- 2023-0 Yes [id number] 1{tbl} Take 1 [facility] hydrochloro 1-26 tablet by ity of thiazide 00:00: mouth in [place] 20-12.5 mg 00 the Medical per tablet morning. [facility] lisinopriL- 2023-0 Yes [id number] 1{tbl} Take 1 [facility] hydrochloro 1-26 tablet by ity of thiazide 00:00: mouth in [place] 20-12.5 mg 00 the Medical per tablet morning. [facility] lisinopriL- 2023-0 Yes [id number] 1{tbl} Take 1 [facility] hydrochloro 1-26 tablet by ity of thiazide 00:00: mouth in [place] 20-12.5 mg 00 the Medical per tablet morning. [facility] lisinopriL- 3-0 Yes [id number] 1{tbl} Take 1 [facility] hydrochloro 1-26 tablet by ity of thiazide 00:00: mouth in [place] 20-12.5 mg 00 the Medical per tablet morning. [facility] lisinopriL- 3-0 Yes [id number] 1{tbl} Take 1 [facility] hydrochloro 1-26 tablet by ity of thiazide 00:00: mouth in [place] 20-12.5 mg 00 the Medical per tablet morning. [facility] lisinopriL- 3-0 Yes [id number] 1{tbl} Take 1 [facility] hydrochloro 1-26 tablet by ity of thiazide 00:00: mouth in [place] 20-12.5 mg 00 the Medical per tablet morning. [facility] lisinopriL- 3-0 Yes [id number] 1{tbl} Take 1 [facility] hydrochloro 1-26 tablet by ity of thiazide 00:00: mouth in [place] 20-12.5 mg 00 the Medical per tablet morning. [facility] hydrOXYchlo 3-0 2022- No [id number] 400mg Take 2 Univers roQUINE 200 1-26 06-06 tablets by i ty of mg tablet 00:00: 00:00 mouth in [facility] as 00 :00 the Medical morning. [place] hydrOXYchlo 3-0 2022- No [id number] 400mg Take 2 Univers roQUINE 200 1-26 06-06 tablets by i ty of mg tablet 00:00: 00:00 mouth in [place] as 00 :00 the Medical morning. Branch methotrexat 3-0 2022- No [id number] 20mg Take 8 Univers e 2.5 mg 1-26 05-11 tablets by ity of tablet 00:00: 00:00 mouth [place] 00 :00 weekly Medical Take 4 Branch pills in the morning and 4 pills in the evening methotrexat 2022-0 2023- No [id number] 20mg Take 8 Univers e 2.5 mg 1-26 05-11 tablets by ity of tablet 00:00: 00:00 mouth [place] 00 :00 weekly Medical Take 4 Branch pills in the morning and 4 pills in the evening clonazePAM 2022-0 Yes (Schedule Un violeta 2 mg tablet 1-13 IV Drug) ity of 08:47: TAKE 1 [place] 58 TABLET BY Medical MOUTH 3 Branch TIMES A DAY FOR 30 DAYS FLUoxetine 2022-0 Yes 1{capsu Take 1 Un violeta 40 mg 1-13 le} capsule by ity of capsule 08:47: mouth in [place] [address] the Medical morning. Branch lamoTRIgine Yes 1{tbl} Take 1 Un [facility] 100 mg 1-13 tablet by ity of tablet 08:47: mouth in [place] [address] the Medical morning. Branch clonazePAM Yes (Schedule Un violeta 2 mg tablet 1-13 IV Drug) ity of 08:47: TAKE 1 [place] 58 TABLET BY Medical MOUTH 3 Branch TIMES A DAY FOR 30 DAYS FLUoxetine 2022-0 Yes 1{capsu Take 1 Un violeta 40 mg 1-13 le} capsule by ity of capsule 08:47: mouth in [place] [address] the Medical morning. Branch lamoTRIgine 0 Yes 1{tbl} Take 1 Un [place] 100 mg 1-13 tablet by ity of tablet 08:47: mouth in [place] [address] the Medical morning. Branch clonazePAM 2022-0 Yes (Schedule Un violeta 2 mg tablet 1-13 IV Drug) ity of 08:47: TAKE 1 [place] 58 TABLET BY Medical MOUTH 3 Branch TIMES A DAY FOR 30 DAYS FLUoxetine 2022-0 Yes 1{capsu Take 1 Un viole[place] 40 mg 1-13 le} capsule by ity of capsule 08:47: mouth in [place] [address] the Medical morning. Branch lamoTRIgine 2022-0 Yes 1{tbl} Take 1 Un [place] 100 mg 1-13 tablet by ity of tablet 08:47: mouth in [place] [address] the Medical morning. Branch clonazePAM 2022-0 Yes (Schedule Un violeta 2 mg tablet 1-13 IV Drug) ity of 08:47: TAKE 1 [place] 58 TABLET BY Medical MOUTH 3 Branch TIMES A DAY FOR 30 DAYS FLUoxetine 2022-0 Yes 1{capsu Take 1 Un viole[place] 40 mg 1-13 le} capsule by ity of capsule 08:47: mouth in [place] [address] the Medical morning. Branch lamoTRIgine 2022-0 Yes 1{tbl} Take 1 Un [place] 100 mg 1-13 tablet by ity of tablet 08:47: mouth in [place] [address] the Medical morning. Branch clonazePAM 2022-0 Yes (Schedule Un violeta 2 mg tablet 1-13 IV Drug) ity of 08:47: TAKE 1 [place] 58 TABLET BY Medical MOUTH 3 Branch TIMES A DAY FOR 30 DAYS FLUoxetine 2022-0 Yes 1{capsu Take 1 Un viole[place] 40 mg 1-13 le} capsule by ity of capsule 08:47: mouth in [place] [address] the Medical morning. Branch lamoTRIgine 2022-0 Yes 1{tbl} Take 1 Un [place] 100 mg 1-13 tablet by ity of tablet 08:47: mouth in [place] [address] the Medical morning. Branch clonazePAM 2022-0 Yes (Schedule Un violeta 2 mg tablet 1-13 IV Drug) ity of 08:47: TAKE 1 [place] 58 TABLET BY Medical MOUTH 3 Branch TIMES A DAY FOR 30 DAYS FLUoxetine 2022-0 Yes 1{capsu Take 1 Un viole[place] 40 mg 1-13 le} capsule by ity of capsule 08:47: mouth in [place] [address] the Medical morning. Branch lamoTRIgine 2022-0 Yes 1{tbl} Take 1 Un [facility] 100 mg 1-13 tablet by ity of tablet 08:47: mouth in [place] [address] the Medical morning. Branch clonazePAM 2022-0 Yes (Schedule Un violeta 2 mg tablet 1-13 IV Drug) ity of 08:47: TAKE 1 [place] 58 TABLET BY Medical MOUTH 3 Branch TIMES A DAY FOR 30 DAYS FLUoxetine 3-0 Yes 1{capsu Take 1 Un violeta 40 mg 1-13 le} capsule by ity of capsule 08:47: mouth in [place] [address] the Medical morning. Branch lamoTRIgine 2022-0 Yes 1{tbl} Take 1 [facility] 100 mg 1-13 tablet by ity of tablet 08:47: mouth in [place] [address] the Medical morning. Branch clonazePAM 3-0 Yes (Schedule Un violeta 2 mg tablet 1-13 IV Drug) ity of 08:47: TAKE 1 [place] 58 TABLET BY Medical MOUTH 3 Branch TIMES A DAY FOR 30 DAYS FLUoxetine 2023-0 Yes 1{capsu Take 1 Un viole[facility] 40 mg 1-13 le} capsule by ity of capsule 08:47: mouth in [place] [address] the Medical morning. Branch lamoTRIgine 2022-0 Yes 1{tbl} Take 1 Un [facility] 100 mg 1-13 tablet by ity of tablet 08:47: mouth in [place] [address] the Medical morning. Branch clonazePAM 2022-0 Yes (Schedule Un violeta 2 mg tablet 1-13 IV Drug) ity of 08:47: TAKE 1 [place] 58 TABLET BY Medical MOUTH 3 Branch TIMES A DAY FOR 30 DAYS FLUoxetine 2022-0 Yes 1{capsu Take 1 Un v[facility]le[facility] 40 mg 1-13 le} capsule by ity of capsule 08:47: mouth in [place] [address] the Medical morning. Branch lamoTRIgine 2022-0 Yes 1{tbl} Take 1 Un [place] 100 mg 1-13 tablet by ity of tablet 08:47: mouth in [place] [address] the Medical morning. Branch clonazePAM 2022-0 Yes (Schedule Un violeta 2 mg tablet 1-13 IV Drug) ity of 08:47: TAKE 1 [place] 58 TABLET BY Medical MOUTH 3 Branch TIMES A DAY FOR 30 DAYS FLUoxetine 2022-0 Yes 1{capsu Take 1 Un v[facility]le[place] 40 mg 1-13 le} capsule by ity of capsule 08:47: mouth in [place] [address] the Medical morning. Branch lamoTRIgine 2022-0 Yes 1{tbl} Take 1 Un [facility] 100 mg 1-13 tablet by ity of tablet 08:47: mouth in [place] [address] the Medical morning. Branch clonazePAM 2022-0 Yes (Schedule Un violeta 2 mg tablet 1-13 IV Drug) ity of 08:47: TAKE 1 [place] 58 TABLET BY Medical MOUTH 3 Branch TIMES A DAY FOR 30 DAYS FLUoxetine 2022-0 Yes 1{capsu Take 1 Un [facility] 40 mg 1-13 le} capsule by ity of capsule 08:47: mouth in [place] [address] the Medical morning. Branch lamoTRIgine 2022-0 Yes 1{tbl} Take 1 [facility] [place] 100 mg 1-13 tablet by ity of tablet 08:47: mouth in [place] [address] the Medical morning. Branch METHOTREXAT 2021-07 Yes [id number] 20mg TAKE 8 [facility] E 2.5 mg 2-01 TABLETS BY ity o f tablet 00:00: MOUTH [place] [address] WEEKLY Medical Branch METHOTREXAT 2021-07 Yes [id number] 20mg TAKE 8 [facility] E 2.5 mg 2-01 TABLETS BY ity o f tablet 00:00: [facility] Medical Branch METHOTREXAT 2021-07 Yes [id number] 20mg TAKE 8 [facility] E 2.5 mg 2-01 TABLETS BY ity o f tablet 00:00: [facility] [place] [facility] Medical Branch METHOTREXAT 2021-07 Yes [id number] 20mg TAKE 8 [facility] E 2.5 mg 2-01 TABLETS BY ity o f tablet 00:00: [facility] [place] [facility] Branch METHOTREXAT 2021-07 Yes [id number] 20mg TAKE 8 [facility] E 2.5 mg 2-01 TABLETS BY ity o f tablet 00:00: [facility] [place] [facility] Branch METHOTREXAT 2021-07 Yes [id number] 20mg TAKE 8 [facility] E 2.5 mg 2-01 TABLETS BY ity o f tablet 00:00: [facility] [place] [facility] Branch METHOTREXAT 2021-07 Yes [id number] 20mg TAKE 8 [facility] E 2.5 mg 2-01 TABLETS BY ity o f tablet 00:00: [facility] [place] [facility] Branch METHOTREXAT 2021-07 Yes [id number] 20mg TAKE 8 [facility] E 2.5 mg 2-01 TABLETS BY ity o f tablet 00:00: [facility] [place] [facility] Branch METHOTREXAT 2021-07 Yes [id number] 20mg TAKE 8 [facility] E 2.5 mg 2-01 TABLETS BY ity o f tablet 00:00: [facility] [place] [facility] Branch METHOTREXAT 2021-2022- No [id number] 20mg TAKE 8 [facility] E 2.5 mg 2-01 -26 TABLETS BY ity of tablet 00:00: 00:00 [facility] [place] 00 : [facility] METHOTREXAT 2021-2022- No [id number] 20mg TAKE 8 Univers E 2.5 mg 2-01 -26 TABLETS BY ity of tablet 00:00: 00:00 [facility] [place] 00 :00 [facility] METHOTREXAT 2021-2022- No [id number] 20mg TAKE 8 Univers E 2.5 mg 2-01 -26 TABLETS BY ity of tablet 00:00: 00:00 [facility] [place] 00 : [facility] OZEMPIC 2021-07 Yes INJECT Univers 0.25 mg or 1-30 0.5MG ity of 0.5 mg(2 00:00: SUBCUTANEO [place] as mg/1.5 mL) 00 [facility] MORNING Branch ONCE A WEEK [facility]2021-07 Yes INJECT Univers 0.25 mg or 1-30 0.5MG ity of 0.5 mg(2 00:00: SUBCUTANEO [place] as mg/1.5 mL) 00 [facility] MORNING Branch ONCE A WEEK 2021-07 Yes INJECT Univers 0.25 mg or 1-30 0.5MG ity of 0.5 mg(2 00:00: SUBCUTANEO [place] as mg/1.5 mL) 00 [facility] MORNING Branch ONCE A WEEK 2021-07 Yes INJECT Univers 0.25 mg or 1-30 0.5MG ity of 0.5 mg(2 00:00: SUBCUTANEO [place] as mg/1.5 mL) 00 [facility] MORNING Branch ONCE A WEEK 2021-07 Yes INJECT Univers 0.25 mg or 1-30 0.5MG ity of 0.5 mg(2 00:00: SUBCUTANEO [place] as mg/1.5 mL) 00 [facility] MORNING Branch ONCE A WEEK 2021-07 Yes INJECT Univers 0.25 mg or 1-30 0.5MG ity of 0.5 mg(2 00:00: SUBCUTANEO [place] as mg/1.5 mL) 00 [facility] MORNING Branch ONCE A WEEK 2021-07 Yes INJECT Univers 0.25 mg or 1-30 0.5MG ity of 0.5 mg(2 00:00: SUBCUTANEO [place] mg/1.5 mL) 00 [facility] MORN[facility] Branch ONCE A WEEK 2021-07 Yes INJECT [facility] 0.25 mg or 1-30 0.5MG ity of 0.5 mg(2 00:00: SUBCUTANEO [place] mg/1.5 mL) 00 [facility] MORNING Branch ONCE A WEEK 2021-07 Yes INJECT [facility] 0.25 mg or 1-30 0.5MG ity of 0.5 mg(2 00:00: SUBCUTANEO [place] mg/1.5 mL) 00 [facility] ONCE A WEEK 2021-07 Yes INJECT [facility] 0.25 mg or 1-30 0.5MG ity of 0.5 mg(2 00:00: SUBCUTANEO [place] mg/1.5 mL) 00 [facility] ONCE A WEEK 2021-07 Yes INJECT [facility] 0.25 mg or 1-30 0.5MG ity of 0.5 mg(2 00:00: SUBCUTANEO [place] mg/1.5 mL) 00 [facility] ONCE A WEEK 2021-07 Yes INJECT [facility] 0.25 mg or 1-30 0.5MG ity of 0.5 mg(2 00:00: SUBCUTANEO [place] mg/1.5 mL) 00 [facility] ONCE A WEEK 2021-07 Yes INJECT [facility] 0.25 mg or 1-30 0.5MG ity of 0.5 mg(2 00:00: SUBCUTANEO [place] mg/1.5 mL) 00 [facility] ONCE A WEEK 2021-07 Yes INJECT [facility] 0.25 mg or 1-30 0.5MG ity of 0.5 mg(2 00:00: SUBCUTANEO [place] mg/1.5 mL) 00 [facility] ONCE A WEEK 2021-07 Yes INJECT [facility] 0.25 mg or 1-30 0.5MG it[facility] of 0.5 mg(2 00:00: SUBCUTANEO [place] mg/1.5 mL) 00 [facility] ONCE A WEEK 2021-07 Yes INJECT [facility] 0.25 mg or 1-30 0.5MG ity of 0.5 mg(2 00:00: SUBCUTANEO [place] mg/1.5 mL) 00 [facility] ONCE A WEEK 2021-07 Yes INJECT [facility] 0.25 mg or 1-30 0.5MG ity of 0.5 mg(2 00:00: SUBCUTANEO [place] mg/1.5 mL) 00 [facility] ONCE A WEEK 2021-07 Yes INJECT [facility] 0.25 mg or 1-30 0.5MG [facility] of 0.5 mg(2 00:00: SUBCUTANEO [place] mg/1.5 mL) 00 [facility] ONCE A WEEK 2021-07 Yes INJECT [facility] 0.25 mg or 1-30 0.5MG ity of 0.5 mg(2 00:00: SUBCUTANEO [place] mg/1.5 mL) 00 [facility] ONCE A WEEK 2021-07 Yes INJECT [facility] 0.25 mg or 1-30 0.5MG ity of 0.5 mg(2 00:00: SUBCUTANEO [place] mg/1.5 mL) 00 [facility] ONCE A WEEK 2021-07 Yes INJECT [facility] 0.25 mg or 1-30 0.5MG ity of 0.5 mg(2 00:00: SUBCUTANEO [place] mg/1.5 mL) 00 [facility] ONCE A WEEK 2021-07 Yes INJECT [facility] 0.25 mg or 1-30 0.5MG ity of 0.5 mg(2 00:00: SUBCUTANEO [place] mg/1.5 mL) 00 [facility] ONCE A WEEK 2021-07 Yes INJECT [facility] 0.25 mg or 1-30 0.5MG ity of 0.5 mg(2 00:00: SUBCUTANEO [place] mg/1.5 mL) 00 [facility] ONCE A WEEK 2021-07 Yes INJECT [facility] 0.25 mg or 1-30 0.5MG ity of 0.5 mg(2 00:00: SUBCUTANEO [place] mg/1.5 mL) 00 [facility] ONCE A WEEK 2021-07 Yes INJECT [facility] 0.25 mg or 1-30 0.5MG ity of 0.5 mg(2 00:00: SUBCUTANEO [place] mg/1.5 mL) 00 [facility] ONCE A WEEK 2021-07 Yes INJECT [facility] 0.25 mg or 1-30 0.5MG ity of 0.5 mg(2 00:00: SUBCUTANEO [place] mg/1.5 mL) 00 [facility] ONCE A WEEK 2021-07 Yes INJECT [facility] 0.25 mg or 1-30 0.5MG ity of 0.5 mg(2 00:00: SUBCUTANEO [place] mg/1.5 mL) 00 [facility] ONCE A WEEK 2021-07 Yes INJECT [facility] 0.25 mg or 1-30 0.5MG ity of 0.5 mg(2 00:00: SUBCUTANEO [place] mg/1.5 mL) 00 [facility] ONCE A WEEK 2021-07 Yes INJECT [facility] 0.25 mg or 1-30 0.5MG ity of 0.5 mg(2 00:00: SUBCUTANEO [place] mg/1.5 mL) 00 [facility] ONCE A WEEK 2021-07 Yes INJECT [facility] 0.25 mg or 1-30 0.5MG ity of 0.5 mg(2 00:00: SUBCUTANEO [place] mg/1.5 mL) 00 [facility] ONCE A WEEK 2021-07 Yes INJECT [facility] 0.25 mg or 1-30 0.5MG ity of 0.5 mg(2 00:00: SUBCUTANEO [place] mg/1.5 mL) 00 [facility] ONCE A WEEK 2021-07 Yes INJECT [facility] 0.25 mg or 1-30 0.5MG ity of 0.5 mg(2 00:00: SUBCUTANEO [place] mg/1.5 mL) 00 [facility] ONCE A WEEK 2021-07 Yes INJECT [facility] 0.25 mg or 1-30 0.5MG ity of 0.5 mg(2 00:00: SUBCUTANEO [place] mg/1.5 mL) 00 [facility] ONCE A WEEK 2021-07 Yes INJECT [facility] 0.25 mg or 1-30 0.5MG ity of 0.5 mg(2 00:00: SUBCUTANEO [place] mg/1.5 mL) 00 [facility] ONCE A WEEK 2021-07 Yes INJECT [facility] 0.25 mg or 1-30 0.5MG ity of 0.5 mg(2 00:00: SUBCUTANEO [place] mg/1.5 mL) 00 [facility] ONCE A WEEK 2021-07 Yes INJECT [facility] 0.25 mg or 1-30 0.5MG ity of 0.5 mg(2 00:00: SUBCUTANEO [place] mg/1.5 mL) 00 [facility] ONCE A WEEK 2021-07 Yes INJECT [facility] 0.25 mg or 1-30 0.5MG ity of 0.5 mg(2 00:00: SUBCUTANEO [place] mg/1.5 mL) 00 [facility] ONCE A WEEK 2021-07 Yes INJECT [facility] 0.25 mg or 1-30 0.5MG ity of 0.5 mg(2 00:00: SUBCUTANEO [place] mg/1.5 mL) 00 [facility] ONCE A WEEK 2021-07 Yes INJECT [facility] 0.25 mg or 1-30 0.5MG ity of 0.5 mg(2 00:00: SUBCUTANEO [place] mg/1.5 mL) 00 [facility] ONCE A WEEK 2021-07 Yes INJECT [facility] 0.25 mg or 1-30 0.5MG ity of 0.5 mg(2 00:00: SUBCUTANEO [place] mg/1.5 mL) 00 [facility] ONCE A WEEK 2021-07 Yes INJECT [facility] 0.25 mg or 1-30 0.5MG ity of 0.5 mg(2 00:00: SUBCUTANEO [place] mg/1.5 mL) 00 [facility] ONCE A WEEK 2021-07 Yes INJECT [facility] 0.25 mg or 1-30 0.5MG ity of 0.5 mg(2 00:00: SUBCUTANEO [place] mg/1.5 mL) 00 [facility] ONCE A WEEK 2021-07 Yes INJECT [facility] 0.25 mg or 1-30 0.5MG ity of 0.5 mg(2 00:00: SUBCUTANEO [place] mg/1.5 mL) 00 [facility] ONCE A WEEK 2021-07 Yes INJECT [facility] 0.25 mg or 1-30 0.5MG ity of 0.5 mg(2 00:00: SUBCUTANEO [place] mg/1.5 mL) 00 [facility] ONCE A WEEK 2021-07 Yes INJECT [facility] 0.25 mg or 1-30 0.5MG ity of 0.5 mg(2 00:00: SUBCUTANEO [place] mg/1.5 mL) 00 [facility] ONCE A WEEK 2021-07 Yes INJECT [facility] 0.25 mg or 1-30 0.5MG ity of 0.5 mg(2 00:00: SUBCUTANEO [place] mg/1.5 mL) 00 [facility] ONCE A WEEK 2021-07 Yes INJECT [facility] 0.25 mg or 1-30 0.5MG ity of 0.5 mg(2 00:00: SUBCUTANEO [place] mg/1.5 mL) 00 [facility] ONCE A WEEK 2021-07 Yes INJECT [facility] 0.25 mg or 1-30 0.5MG ity of 0.5 mg(2 00:00: SUBCUTANEO [place] mg/1.5 mL) 00 [facility] ONCE A WEEK 2021-07 Yes INJECT [facility] 0.25 mg or 1-30 0.5MG ity of 0.5 mg(2 00:00: SUBCUTANEO [place] mg/1.5 mL) 00 [facility] ONCE A WEEK 2021-07 Yes INJECT [facility] 0.25 mg or 1-30 0.5MG ity of 0.5 mg(2 00:00: SUBCUTANEO [place] mg/1.5 mL) 00 [facility] ONCE A WEEK 2021-07 Yes INJECT [facility] 0.25 mg or 1-30 0.5MG ity of 0.5 mg(2 00:00: SUBCUTANEO [place] mg/1.5 mL) 00 [facility] ONCE A WEEK 2021-07 Yes INJECT [facility] 0.25 mg or 1-30 0.5MG ity of 0.5 mg(2 00:00: SUBCUTANEO [place] mg/1.5 mL) 00 [facility] ONCE A WEEK 2021-07 Yes INJECT [facility] 0.25 mg or 1-30 0.5MG ity of 0.5 mg(2 00:00: SUBCUTANEO [place] mg/1.5 mL) 00 [facility] ONCE A WEEK 2021-07 Yes INJECT [facility] 0.25 mg or 1-30 0.5MG ity of 0.5 mg(2 00:00: SUBCUTANEO [place] mg/1.5 mL) 00 [facility] ONCE A WEEK 2021-07 Yes INJECT [facility] 0.25 mg or 1-30 0.5MG ity of 0.5 mg(2 00:00: SUBCUTANEO [place] mg/1.5 mL) 00 [facility] ONCE A WEEK 2021-07 Yes INJECT [facility] 0.25 mg or 1-30 0.5MG ity of 0.5 mg(2 00:00: SUBCUTANEO [place] [facility] mg/1.5 mL) 00 [facility] ONCE A WEEK 2021-07 Yes INJECT [facility] 0.25 mg or 1-30 0.5MG ity of 0.5 mg(2 00:00: SUBCUTANEO [place] mg/1.5 mL) 00 [facility] 0.25 mg or 1-30 0.5MG ity of 0.5 mg(2 00:00: SUBCUTANEO [place] mg/1.5 mL) 00 [facility] ONCE A WEEK OZEMPIC 2021-07 Yes INJECT [facility] 0.25 mg or 1-30 0.5MG ity of 0.5 mg(2 00:00: SUBCUTANEO [place] mg/1.5 mL) 00 [facility] ONCE A WEEK OZEMPIC 2021-07 Yes INJECT [facility] 0.25 mg or 1-30 0.5MG ity of 0.5 mg(2 00:00: SUBCUTANEO [place] [facility] mg/1.5 mL) 00 [facility] OZEMPIC 2021-07 Yes INJECT [facility] 0.25 mg or 1-30 0.5MG ity of 0.5 mg(2 00:00: SUBCUTANEO [place] mg/1.5 mL) 00 [facility] ONCE A WEEK zolpidem 2021-07 Yes TAKE 1 [facility] 12.5 mg CR 1-28 TABLET BY ity of tablet 00:00: MOUTH [place] 00 EVERY DAY Medical AT BEDTIME [place] NEEDED FOR 30 DAYS...DUE 06/22 zolpidem 2021-07 Yes TAKE 1 [facility] 12.5 mg CR 1-28 TABLET BY ity of tablet 00:00: MOUTH [place] 00 EVERY DAY Medical AT BEDTIME [place] NEEDED FOR 30 DAYS...DUE 06/22 zolpidem 2021-07 Yes TAKE 1 [facility] 12.5 mg CR 1-28 TABLET BY ity of tablet 00:00: MOUTH [place] 00 EVERY DAY Medical AT BEDTIME [place] NEEDED FOR 30 DAYS...DUE 06/22 zolpidem 2021-07 Yes TAKE 1 [facility] 12.5 mg CR 1-28 TABLET BY ity of tablet 00:00: MOUTH [place] 00 EVERY DAY Medical AT BEDTIME [place] NEEDED FOR 30 DAYS...DUE 06/22 zolpidem 2021-07 Yes TAKE 1 [facility] 12.5 mg CR 1-28 TABLET BY ity of tablet 00:00: MOUTH [place] 00 EVERY DAY Medical AT BEDTIME [place] NEEDED FOR 30 DAYS...DUE 06/22 zolpidem 2021-07 Yes TAKE 1 [facility] 12.5 mg CR 1-28 TABLET BY ity of tablet 00:00: MOUTH [place] 00 EVERY DAY Medical AT BEDTIME [place] NEEDED FOR 30 DAYS...DUE 06/22 zolpidem 2021-07 Yes TAKE 1 [facility] 12.5 mg CR 1-28 TABLET BY ity of tablet 00:00: MOUTH [place] 00 EVERY DAY Medical AT BEDTIME [place] NEEDED FOR 30 DAYS...DUE 06/22 zolpidem 2021-07 Yes TAKE 1 [facility] 12.5 mg CR 1-28 TABLET BY ity of tablet 00:00: MOUTH [place] 00 EVERY DAY Medical AT BEDTIME [place] NEEDED FOR 30 DAYS...DUE 06/22 zolpidem 2021-07 Yes TAKE 1 [facility] 12.5 mg CR 1-28 TABLET BY ity of tablet 00:00: MOUTH [place] 00 EVERY DAY Medical AT BEDTIME [place] NEEDED FOR 30 DAYS...DUE 06/22 zolpidem 2021-07 Yes TAKE 1 [facility] 12.5 mg CR 1-28 TABLET BY ity of tablet 00:00: MOUTH [place] 00 EVERY DAY Medical AT BEDTIME [place] NEEDED FOR 30 DAYS...DUE 06/22 zolpidem 2021-07 Yes TAKE 1 [facility] 12.5 mg CR 1-28 TABLET BY ity of tablet 00:00: MOUTH [place] 00 EVERY DAY Medical AT BEDTIME [place] NEEDED FOR 30 DAYS...DUE 06/22 zolpidem 2021-07 Yes TAKE 1 [facility] 12.5 mg CR 1-28 TABLET BY ity of tablet 00:00: MOUTH [place] 00 EVERY DAY Medical AT BEDTIME [place] NEEDED FOR 30 DAYS...DUE 06/22 zolpidem 2021-07 Yes TAKE 1 [facility] 12.5 mg CR 1-28 TABLET BY ity of tablet 00:00: MOUTH [place] 00 EVERY DAY Medical AT BEDTIME [place] NEEDED FOR 30 DAYS...DUE 06/22 zolpidem 2021-07 Yes TAKE 1 [facility] 12.5 mg CR 1-28 TABLET BY ity of tablet 00:00: MOUTH [place] 00 EVERY DAY Medical AT BEDTIME [place] NEEDED FOR 30 DAYS...DUE 06/22 zolpidem 2021-07 Yes TAKE 1 [facility] 12.5 mg CR 1-28 TABLET BY ity of tablet 00:00: MOUTH [place] 00 EVERY DAY Medical AT BEDTIME [place] NEEDED FOR 30 DAYS...DUE 06/22 zolpidem 2021-07 Yes TAKE 1 [facility] 12.5 mg CR 1-28 TABLET BY ity of tablet 00:00: MOUTH [place] 00 EVERY DAY Medical AT BEDTIME [place] NEEDED FOR 30 DAYS...DUE 06/22 zolpidem 2021-07 Yes TAKE 1 [facility] 12.5 mg CR 1-28 TABLET BY ity of tablet 00:00: MOUTH [place] 00 EVERY DAY Medical AT BEDTIME [place] NEEDED FOR 30 DAYS...DUE 06/22 zolpidem 2021-07 Yes TAKE 1 [facility] 12.5 mg CR 1-28 TABLET BY ity of tablet 00:00: MOUTH [place] 00 EVERY DAY Medical AT BEDTIME [place] NEEDED FOR 30 DAYS...DUE 06/22 zolpidem 2021-07 Yes TAKE 1 [facility] 12.5 mg CR 1-28 TABLET BY ity of tablet 00:00: MOUTH [place] 00 EVERY DAY Medical AT BEDTIME [place] NEEDED FOR 30 DAYS...DUE 06/22 zolpidem 2021-07 Yes TAKE 1 [facility] 12.5 mg CR 1-28 TABLET BY ity of tablet 00:00: MOUTH [place] 00 EVERY DAY Medical AT BEDTIME [place] NEEDED FOR 30 DAYS...DUE 06/22 zolpidem 2021-07 Yes TAKE 1 [facility] 12.5 mg CR 1-28 TABLET BY ity of tablet 00:00: MOUTH [place] 00 EVERY DAY Medical AT BEDTIME [place] NEEDED FOR 30 DAYS...DUE 06/22 zolpidem 2021-07 Yes TAKE 1 [facility] 12.5 mg CR 1-28 TABLET BY ity of tablet 00:00: MOUTH [place] 00 EVERY DAY Medical AT BEDTIME [place] NEEDED FOR 30 DAYS...DUE 06/22 zolpidem 2021-07 Yes TAKE 1 [facility] 12.5 mg CR 1-28 TABLET BY ity of tablet 00:00: MOUTH [place] 00 EVERY DAY Medical AT BEDTIME [place] NEEDED FOR 30 DAYS...DUE 06/22 zolpidem 2021-07 Yes TAKE 1 [facility] 12.5 mg CR 1-28 TABLET BY ity of tablet 00:00: MOUTH [place] 00 EVERY DAY Medical AT BEDTIME [place] NEEDED FOR 30 DAYS...DUE 06/22 zolpidem 2021-07 Yes TAKE 1 [facility] 12.5 mg CR 1-28 TABLET BY ity of tablet 00:00: MOUTH [place] 00 EVERY DAY Medical AT BEDTIME [place] NEEDED FOR 30 DAYS...DUE 06/22 zolpidem 2021-07 Yes TAKE 1 [facility] 12.5 mg CR 1-28 TABLET BY ity of tablet 00:00: MOUTH [place] 00 EVERY DAY Medical AT BEDTIME [place] NEEDED FOR 30 DAYS...DUE 06/22 zolpidem 2021-07 Yes TAKE 1 [facility] 12.5 mg CR 1-28 TABLET BY ity of tablet 00:00: MOUTH [place] 00 EVERY DAY Medical AT BEDTIME [place] NEEDED FOR 30 DAYS...DUE 06/22 zolpidem 2021-07 Yes TAKE 1 [facility] 12.5 mg CR 1-28 TABLET BY ity of tablet 00:00: MOUTH [place] 00 EVERY DAY Medical AT BEDTIME [place] NEEDED FOR 30 DAYS...DUE 06/22 zolpidem 2021-07 Yes TAKE 1 [facility] 12.5 mg CR 1-28 TABLET BY ity of tablet 00:00: MOUTH [place] 00 EVERY DAY Medical AT BEDTIME [place] NEEDED FOR 30 DAYS...DUE 06/22 zolpidem 2021-07 Yes TAKE 1 [facility] 12.5 mg CR 1-28 TABLET BY ity of tablet 00:00: MOUTH [place] 00 EVERY DAY Medical AT BEDTIME [place] NEEDED FOR 30 DAYS...DUE 06/22 zolpidem 2021-07 Yes TAKE 1 [facility] 12.5 mg CR 1-28 TABLET BY ity of tablet 00:00: MOUTH [place] 00 EVERY DAY Medical AT BEDTIME [place] NEEDED FOR 30 DAYS...DUE 06/22 zolpidem 2021-07 Yes TAKE 1 [facility] 12.5 mg CR 1-28 TABLET BY ity of tablet 00:00: MOUTH [place] 00 EVERY DAY Medical AT BEDTIME [place] NEEDED FOR 30 DAYS...DUE 06/22 zolpidem 2021-07 Yes TAKE 1 [facility] 12.5 mg CR 1-28 TABLET BY ity of tablet 00:00: MOUTH [place] 00 EVERY DAY Medical AT BEDTIME [place] NEEDED FOR 30 DAYS...DUE 06/22 zolpidem 2021-07 Yes TAKE 1 [facility] 12.5 mg CR 1-28 TABLET BY ity of tablet 00:00: MOUTH [place] 00 EVERY DAY Medical AT BEDTIME [place] NEEDED FOR 30 DAYS...DUE 06/22 zolpidem 2021-07 Yes TAKE 1 [facility] 12.5 mg CR 1-28 TABLET BY ity of tablet 00:00: MOUTH [place] 00 EVERY DAY Medical AT BEDTIME [place] NEEDED FOR 30 DAYS...DUE 06/22 zolpidem 2021-07 Yes TAKE 1 [facility] 12.5 mg CR 1-28 TABLET BY ity of tablet 00:00: MOUTH [place] 00 EVERY DAY Medical AT BEDTIME [place] NEEDED FOR 30 DAYS...DUE 06/22 zolpidem 2021-07 Yes TAKE 1 [facility] 12.5 mg CR 1-28 TABLET BY ity of tablet 00:00: MOUTH [place] 00 EVERY DAY Medical AT BEDTIME [place] NEEDED FOR 30 DAYS...DUE 06/22 zolpidem 2021-07 Yes TAKE 1 [facility] 12.5 mg CR 1-28 TABLET BY ity of tablet 00:00: MOUTH [place] 00 EVERY DAY Medical AT BEDTIME [place] NEEDED FOR 30 DAYS...DUE 06/22 zolpidem 2021-07 Yes TAKE 1 [facility] 12.5 mg CR 1-28 TABLET BY ity of tablet 00:00: MOUTH [place] 00 EVERY DAY Medical AT BEDTIME [place] NEEDED FOR 30 DAYS...DUE 06/22 zolpidem 2021-07 Yes TAKE 1 [facility] 12.5 mg CR 1-28 TABLET BY ity of tablet 00:00: MOUTH [place] 00 EVERY DAY Medical AT BEDTIME [place] NEEDED FOR 30 DAYS...DUE 06/22 zolpidem 2021-07 Yes TAKE 1 [facility] 12.5 mg CR 1-28 TABLET BY ity of tablet 00:00: MOUTH [place] 00 EVERY DAY Medical AT BEDTIME [place] NEEDED FOR 30 DAYS...DUE 06/22 zolpidem 2021-07 Yes TAKE 1 [facility] 12.5 mg CR 1-28 TABLET BY ity of tablet 00:00: MOUTH [place] 00 EVERY DAY Medical AT BEDTIME [place] NEEDED FOR 30 DAYS...DUE 06/22 zolpidem 2021-07 Yes TAKE 1 [facility] 12.5 mg CR 1-28 TABLET BY ity of tablet 00:00: MOUTH [place] 00 EVERY DAY Medical AT BEDTIME [place] NEEDED FOR 30 DAYS...DUE 06/22 zolpidem 2021-07 Yes TAKE 1 [facility] 12.5 mg CR 1-28 TABLET BY ity of tablet 00:00: MOUTH [place] 00 EVERY DAY Medical AT BEDTIME [place] NEEDED FOR 30 DAYS...DUE 06/22 zolpidem 2021-07 Yes TAKE 1 [facility] 12.5 mg CR 1-28 TABLET BY ity of tablet 00:00: MOUTH [place] 00 EVERY DAY Medical AT BEDTIME [place] NEEDED FOR 30 DAYS...DUE 06/22 zolpidem 2021-07 Yes TAKE 1 [facility] 12.5 mg CR 1-28 TABLET BY ity of tablet 00:00: MOUTH [place] 00 EVERY DAY Medical AT BEDTIME [place] NEEDED FOR 30 DAYS...DUE 06/22 zolpidem 2021-07 Yes TAKE 1 [facility] 12.5 mg CR 1-28 TABLET BY ity of tablet 00:00: MOUTH [place] 00 EVERY DAY Medical AT BEDTIME [place] NEEDED FOR 30 DAYS...DUE 06/22 zolpidem 2021-07 Yes TAKE 1 [facility] 12.5 mg CR 1-28 TABLET BY ity of tablet 00:00: MOUTH [place] 00 EVERY DAY Medical AT BEDTIME [place] NEEDED FOR 30 DAYS...DUE 06/22 zolpidem 2021-07 Yes TAKE 1 [facility] 12.5 mg CR 1-28 TABLET BY ity of tablet 00:00: MOUTH [place] 00 EVERY DAY Medical AT BEDTIME [place] NEEDED FOR 30 DAYS...DUE 06/22 zolpidem 2021-07 Yes TAKE 1 [facility] 12.5 mg CR 1-28 TABLET BY ity of tablet 00:00: MOUTH [place] 00 EVERY DAY Medical AT BEDTIME [place] NEEDED FOR 30 DAYS...DUE 06/22 zolpidem 2021-07 Yes TAKE 1 [facility] 12.5 mg CR 1-28 TABLET BY ity of tablet 00:00: MOUTH [place] 00 EVERY DAY Medical AT BEDTIME [place] NEEDED FOR 30 DAYS...DUE 06/22 zolpidem 2021-07 Yes TAKE 1 [facility] 12.5 mg CR 1-28 TABLET BY ity of tablet 00:00: MOUTH [place] 00 EVERY DAY Medical AT BEDTIME [place] NEEDED FOR 30 DAYS...DUE 06/22 zolpidem 2021-07 Yes TAKE 1 [facility] 12.5 mg CR 1-28 TABLET BY ity of tablet 00:00: MOUTH [place] [facility] zolpidem 2021-07 Yes TAKE 1 [facility] 12.5 mg CR 1-28 TABLET BY ity of tablet 00:00: MOUTH [place] 00 EVERY DAY Medical AT BEDTIME [place] NEEDED FOR 30 DAYS...DUE 06/22 zolpidem 2021-07 Yes TAKE 1 [facility] 12.5 mg CR 1-28 TABLET BY ity of tablet 00:00: MOUTH [place] 00 EVERY DAY Medical AT [facility] NEEDED FOR 30 DAYS...DUE 06/22 zolpidem 2021-07 Yes TAKE 1 [facility] 12.5 mg CR 1-28 TABLET BY ity of tablet 00:00: MOUTH [place] 00 EVERY DAY Medical AT BEDTIME [place] NEEDED FOR 30 DAYS...DUE 06/22 zolpidem 2021-07 Yes TAKE 1 [facility] 12.5 mg CR 1-28 TABLET BY ity of tablet 00:00: MOUTH [place] 00 [facility] 06/22 zolpidem 2021-07 Yes TAKE 1 [facility] 12.5 mg CR 1-28 TABLET BY ity of tablet 00:00: MOUTH [place] 00 [facility] [place] [facility]...DUE 06/22 zolpidem 2021-07 Yes TAKE 1 [facility] 12.5 mg CR 1-28 TABLET BY ity of tablet 00:00: MOUTH [place] 00 [facility] 06/22 zolpidem 2021-07 Yes TAKE 1 [facility] 12.5 mg CR 1-28 TABLET BY ity of tablet 00:00: MOUTH [place] 00 EVERY DAY Medical AT BEDTIME [place] NEEDED FOR 30 DAYS...DUE 06/22 zolpidem 2021-07 Yes TAKE 1 [facility] 12.5 mg CR 1-28 TABLET BY ity of tablet 00:00: MOUTH [place] 00 EVERY DAY Medical AT BEDTIME [place] NEEDED FOR 30 DAYS...DUE 06/22 zolpidem 2021-07 Yes TAKE 1 [facility] 12.5 mg CR 1-28 TABLET BY ity of tablet 00:00: MOUTH [place] 00 EVERY DAY Medical AT BEDTIME [place] NEEDED FOR 30 DAYS...DUE 06/22 zolpidem 2021-07 Yes TAKE 1 [facility] 12.5 mg CR 1-28 TABLET BY ity of tablet 00:00: MOUTH [place] 00 EVERY DAY Medical AT BEDTIME [place] NEEDED FOR 30 DAYS...DUE 06/22 zolpidem 2021-07 Yes TAKE 1 [facility] 12.5 mg CR 1-28 TABLET BY ity of tablet 00:00: MOUTH [place] 00 EVERY DAY Medical AT BEDTIME [place] NEEDED FOR 30 DAYS...DUE 06/22 zolpidem 2021-07 Yes TAKE 1 [facility] 12.5 mg CR 1-28 TABLET BY ity of tablet 00:00: MOUTH [place] 00 EVERY DAY Medical AT BEDTIME [place] NEEDED FOR 30 DAYS...DUE 06/22 zolpidem 2021-07 Yes TAKE 1 [facility] 12.5 mg CR 1-28 TABLET BY ity of tablet 00:00: MOUTH [place] 00 EVERY DAY Medical AT BEDTIME [place] NEEDED FOR 30 DAYS...DUE 06/22 zolpidem 2021-07 Yes TAKE 1 [facility] 12.5 mg CR 1-28 TABLET BY ity of tablet 00:00: MOUTH [place] 00 EVERY DAY Medical AT BEDTIME [place] NEEDED FOR 30 DAYS...DUE 06/22 zolpidem 2021-07 Yes TAKE 1 [facility] 12.5 mg CR 1-28 TABLET BY ity of tablet 00:00: MOUTH [place] 00 EVERY DAY Medical AT BEDTIME [place] NEEDED FOR 30 DAYS...DUE 06/22 zolpidem 2021-07 Yes TAKE 1 [facility] 12.5 mg CR 1-28 TABLET BY ity of tablet 00:00: MOUTH [place] 00 EVERY DAY Medical AT BEDTIME [place] NEEDED FOR 30 DAYS...DUE 06/22 zolpidem 2021-07 Yes TAKE 1 [facility] 12.5 mg CR 1-28 TABLET BY ity of tablet 00:00: MOUTH [place] 00 EVERY DAY Medical AT BEDTIME [place] NEEDED FOR 30 DAYS...DUE 06/22 zolpidem 2021-07 Yes TAKE 1 [facility] 12.5 mg CR 1-28 TABLET BY ity of tablet 00:00: MOUTH [place] 00 EVERY DAY Medical AT BEDTIME [place] NEEDED FOR 30 DAYS...DUE 06/22 zolpidem 2021-07 Yes TAKE 1 [facility] 12.5 mg CR 1-28 TABLET BY ity of tablet 00:00: MOUTH [place] 00 EVERY DAY Medical AT BEDTIME [place] NEEDED FOR 30 DAYS...DUE 06/22 zolpidem 2021-07 Yes TAKE 1 [facility] 12.5 mg CR 1-28 TABLET BY ity of tablet 00:00: MOUTH [place] 00 EVERY DAY Medical AT BEDTIME [place] NEEDED FOR 30 DAYS...DUE 06/22 zolpidem 2021-07 Yes TAKE 1 [facility] 12.5 mg CR 1-28 TABLET BY ity of tablet 00:00: MOUTH [place] 00 EVERY DAY Medical AT BEDTIME [place] NEEDED FOR 30 DAYS...DUE 06/22 zolpidem 2021-07 Yes TAKE 1 [facility] 12.5 mg CR 1-28 TABLET BY ity of tablet 00:00: MOUTH [place] 00 EVERY DAY Medical AT BEDTIME [place] NEEDED FOR 30 DAYS...DUE 06/22 zolpidem 2021-07 Yes TAKE 1 [facility] 12.5 mg CR 1-28 TABLET BY ity of tablet 00:00: MOUTH [place] 00 EVERY DAY Medical AT BEDTIME [place] NEEDED FOR 30 DAYS...DUE 06/22 ARIPiprazol 2021-07 Yes 5mg Take 5 mg U nivers e 5 mg 1-22 by mouth ity of tablet 00:00: in the [place] morning. Medical Branch ARIPiprazol 2021-07 Yes 5mg Take 5 mg U nivers e 5 mg 1-22 by mouth ity of tablet 00:00: in the [place] morning. Medical Branch ARIPiprazol 2021-07 Yes 5mg Take 5 mg [facility] n[facility] e 5 mg 1-22 by mouth ity of tablet 00:00: in the [place] morning. [facility] Branch ARIPiprazol 2021-07 Yes 5mg Take 5 mg [facility] n[facility] 5 mg 1-22 by mouth ity of tablet 00:00: in the [place] morning. [facility] ARIPiprazol 2021-07 Yes 5mg Take 5 mg [facility] n[facility] 5 mg 1-22 by mouth ity of tablet 00:00: in the [place] 00 morning. [facility] Branch ARIPiprazol 2021-07 Yes 5mg Take 5 mg [facility] n[facility] e 5 mg 1-22 by mouth ity of tablet 00:00: in the [place] 00 morning. [facility] Branch ARIPiprazol 2021-07 Yes 5mg Take 5 mg U nivers e 5 mg 1-22 by mouth ity of tablet 00:00: in the [place] 00 morning. Medical Branch [facility] 2021-07 Yes [id number] TAKE 1 AND [facility] ro[facility] 200 1-22 1/2 ity of mg tablet 00:00: TABLETS BY [place] 00 MOUTH Medical EVERY DAY [facility]-07 Yes [id number] TAKE 1 AND [facility] roQUINE 200 1-22 1/2 ity of mg tablet 00:00: TABLETS BY [place] 00 MOUTH Medical EVERY DAY [facility] 2021-07 Yes [id number] TAKE 1 AND [facility] roQUINE 200 1-22 1/2 ity of mg tablet 00:00: TABLETS BY [place] 00 MOUTH Medical EVERY DAY [facility] 2021-07 Yes [id number] TAKE 1 AND [facility] roQUINE 200 1-22 1/2 ity of mg tablet 00:00: TABLETS BY [place] 00 MOUTH Medical EVERY DAY [facility] 2021-07 Yes [id number] TAKE 1 AND [facility] roQUINE 200 1-22 1/2 ity of mg tablet 00:00: TABLETS BY [place] 00 MOUTH Medical EVERY DAY [facility] 2021-07 Yes [id number] TAKE 1 AND [facility] roQUINE 200 1-22 1/2 ity of mg tablet 00:00: TABLETS BY [place] 00 MOUTH Medical EVERY DAY [facility] 2021-07 Yes [id number] TAKE 1 AND [facility] roQUINE 200 1-22 1/2 ity of mg tablet 00:00: TABLETS BY [place] 00 MOUTH Medical EVERY DAY [facility] 2021-07 Yes [id number] TAKE 1 AND [facility] roQUINE 200 1-22 1/2 ity of mg tablet 00:00: TABLETS BY [place] 00 MOUTH Medical EVERY DAY [facility] 2021-07 Yes [id number] TAKE 1 AND [facility] roQUINE 200 1-22 1/2 ity of mg tablet 00:00: TABLETS BY [place] 00 MOUTH Medical EVERY DAY Branch ARIPiprazol 2021-07 Yes 5mg Take 5 mg U nivers e 5 mg 1-22 by mouth ity of tablet 00:00: in the [place] 00 morning. [facility] Yes [id number] TAKE 1 AND [facility] roQUINE 200 1-22 1/2 ity of mg tablet 00:00: TABLETS BY [place] 00 MOUTH Medical EVERY DAY Branch ARIPiprazol 2021-07 Yes 5mg Take 5 mg U nivers e 5 mg 1-22 by mouth ity of tablet 00:00: in the [place] 00 morning. Medical Branch ARIPiprazol 2021-1 Yes 5mg Take 5 mg U nivers e 5 mg 1-22 by mouth ity of tablet 00:00: in the [place] 00 morning. Medical Branch ARIPiprazol 2021-1 Yes 5mg Take 5 mg U nivers e 5 mg 1-22 by mouth ity of tablet 00:00: in the [place] 00 morning. Medical Branch ARIPiprazol 2-1 Yes 5mg Take 5 mg U nivers e 5 mg 1-22 by mouth ity of tablet 00:00: in the [place] 00 morning. Medical Branch ARIPiprazol 2021-1 Yes 5mg Take 5 mg U nivers e 5 mg 1-22 by mouth ity of tablet 00:00: in the [place] 00 morning. Medical Branch ARIPiprazol 2021-1 Yes 5mg Take 5 mg U nivers e 5 mg 1-22 by mouth ity of tablet 00:00: in the [place] 00 morning. Medical Branch ARIPiprazol 2021-1 Yes 5mg Take 5 mg U nivers e 5 mg 1-22 by mouth ity of tablet 00:00: in the [place] 00 morning. Medical Branch ARIPiprazol 2021- Yes 5mg Take 5 mg U nivers e 5 mg 1-22 by mouth ity of tablet 00:00: in the [place] 00 morning. Medical Branch ARIPiprazol 2-1 Yes 5mg Take 5 mg U nivers e 5 mg 1-22 by mouth ity of tablet 00:00: in the [place] 00 morning. Medical Branch ARIPiprazol 2-1 Yes 5mg Take 5 mg U nivers e 5 mg 1-22 by mouth ity of tablet 00:00: in the [place] 00 morning. Medical Branch ARIPiprazol 2-1 Yes 5mg Take 5 mg U nivers e 5 mg 1-22 by mouth ity of tablet 00:00: in the [place] 00 morning. Medical Branch ARIPiprazol 2-1 Yes 5mg Take 5 mg U nivers e 5 mg 1-22 by mouth ity of tablet 00:00: in the [place] 00 morning. Medical Branch ARIPiprazol 2022- Yes 5mg Take 5 mg U nivers e 5 mg 1-22 by mouth ity of tablet 00:00: in the [place] 00 morning. Medical Branch ARIPiprazol 2021- Yes 5mg Take 5 mg U nivers e 5 mg 1-22 by mouth ity of tablet 00:00: in the [place] 00 morning. Medical Branch ARIPiprazol 2021- Yes 5mg Take 5 mg U nivers e 5 mg 1-22 by mouth ity of tablet 00:00: in the [place] 00 morning. Medical Branch ARIPiprazol 2021- Yes 5mg Take 5 mg U nivers e 5 mg 1-22 by mouth ity of tablet 00:00: in the [place] 00 morning. Medical Branch ARIPiprazol 2021- Yes 5mg Take 5 mg U nivers e 5 mg 1-22 by mouth ity of tablet 00:00: in the [place] 00 morning. Medical Branch ARIPiprazol 2021- Yes 5mg Take 5 mg U nivers e 5 mg 1-22 by mouth ity of tablet 00:00: in the [place] 00 morning. Medical Branch ARIPiprazol 2021- Yes 5mg Take 5 mg U nivers e 5 mg 1-22 by mouth ity of tablet 00:00: in the [place] 00 morning. Medical Branch ARIPiprazol 2021- Yes 5mg Take 5 mg U nivers e 5 mg 1-22 by mouth ity of tablet 00:00: in the [place] 00 morning. Medical Branch ARIPiprazol 2- Yes 5mg Take 5 mg U nivers e 5 mg 1-22 by mouth ity of tablet 00:00: in the [place] 00 morning. Medical Branch ARIPiprazol 2021- Yes 5mg Take 5 mg U nivers e 5 mg 1-22 by mouth ity of tablet 00:00: in the [place] 00 morning. Medical Branch ARIPiprazol 2021-1 Yes 5mg Take 5 mg U nivers e 5 mg 1-22 by mouth ity of tablet 00:00: in the [place] 00 morning. Medical Branch ARIPiprazol 2021-1 Yes 5mg Take 5 mg U nivers e 5 mg 1-22 by mouth ity of tablet 00:00: in the [place] 00 morning. Medical Branch ARIPiprazol 2-1 Yes 5mg Take 5 mg U nivers e 5 mg 1-22 by mouth ity of tablet 00:00: in the [place] 00 morning. Medical Branch ARIPiprazol 2-1 Yes 5mg Take 5 mg U nivers e 5 mg 1-22 by mouth ity of tablet 00:00: in the [place] 00 morning. Medical Branch ARIPiprazol 2-1 Yes 5mg Take 5 mg U nivers e 5 mg 1-22 by mouth ity of tablet 00:00: in the [place] 00 morning. Medical Branch ARIPiprazol 2-1 Yes 5mg Take 5 mg U nivers e 5 mg 1-22 by mouth ity of tablet 00:00: in the [place] 00 morning. Medical Branch ARIPiprazol 2021-1 Yes 5mg Take 5 mg U nivers e 5 mg 1-22 by mouth ity of tablet 00:00: in the [place] 00 morning. Medical Branch ARIPiprazol 2-1 Yes 5mg Take 5 mg U nivers e 5 mg 1-22 by mouth ity of tablet 00:00: in the [place] 00 morning. Medical Branch ARIPiprazol 2-1 Yes 5mg Take 5 mg U nivers e 5 mg 1-22 by mouth ity of tablet 00:00: in the [place] 00 morning. Medical Branch ARIPiprazol 2-1 Yes 5mg Take 5 mg U nivers e 5 mg 1-22 by mouth ity of tablet 00:00: in the [place] 00 morning. Medical Branch ARIPiprazol 2-1 Yes 5mg Take 5 mg U nivers e 5 mg 1-22 by mouth ity of tablet 00:00: in the [place] 00 morning. Medical Branch ARIPiprazol 2-1 Yes 5mg Take 5 mg U nivers e 5 mg 1-22 by mouth ity of tablet 00:00: in the [place] 00 morning. Medical Branch ARIPiprazol 2-1 Yes 5mg Take 5 mg U nivers e 5 mg 1-22 by mouth ity of tablet 00:00: in the [place] 00 morning. Medical Branch ARIPiprazol 2-1 Yes 5mg Take 5 mg U nivers e 5 mg 1-22 by mouth ity of tablet 00:00: in the [place] 00 morning. Medical Branch ARIPiprazol 2021- Yes 5mg Take 5 mg U nivers e 5 mg 1-22 by mouth ity of tablet 00:00: in the [place] 00 morning. Medical Branch ARIPiprazol 2021-1 Yes 5mg Take 5 mg U nivers e 5 mg 1-22 by mouth ity of tablet 00:00: in the [place] 00 morning. Medical Branch ARIPiprazol 2021- Yes 5mg Take 5 mg U nivers e 5 mg 1-22 by mouth ity of tablet 00:00: in the [place] 00 morning. Medical Branch ARIPiprazol 2021- Yes 5mg Take 5 mg U nivers e 5 mg 1-22 by mouth ity of tablet 00:00: in the [place] 00 morning. Medical Branch ARIPiprazol 2021-1 Yes 5mg Take 5 mg U nivers e 5 mg 1-22 by mouth ity of tablet 00:00: in the [place] 00 morning. Medical Branch ARIPiprazol 2021-1 Yes 5mg Take 5 mg U nivers e 5 mg 1-22 by mouth ity of tablet 00:00: in the [place] 00 morning. Medical Branch ARIPiprazol 2021- Yes 5mg Take 5 mg U nivers e 5 mg 1-22 by mouth ity of tablet 00:00: in the [place] 00 morning. Medical Branch ARIPiprazol 2021- Yes 5mg Take 5 mg U nivers e 5 mg 1-22 by mouth ity of tablet 00:00: in the [place] 00 morning. Medical Branch ARIPiprazol 2-1 Yes 5mg Take 5 mg U nivers e 5 mg 1-22 by mouth ity of tablet 00:00: in the [place] 00 morning. Medical Branch ARIPiprazol 2021-1 Yes 5mg Take 5 mg U nivers e 5 mg 1-22 by mouth ity of tablet 00:00: in the [place] 00 morning. Medical Branch ARIPiprazol 2021-1 Yes 5mg Take 5 mg U nivers e 5 mg 1-22 by mouth ity of tablet 00:00: in the [place] 00 morning. Medical Branch ARIPiprazol 2-1 Yes 5mg Take 5 mg U nivers e 5 mg 1-22 by mouth ity of tablet 00:00: in the [place] 00 morning. Medical Branch ARIPiprazol 2021-07 Yes 5mg Take 5 mg U nivers e 5 mg 1-22 by mouth ity of tablet 00:00: in the [place] 00 morning. [facility] Branch ARIPiprazol 2021-07 Yes 5mg Take 5 mg U nivers e 5 mg 1-22 by mouth ity of tablet 00:00: in the [place] 00 morning. Medical Branch ARIPiprazol 2021-07 Yes 5mg Take 5 mg U nivers e 5 mg 1-22 by mouth ity of tablet 00:00: in the [place] 00 morning. Medical Branch ARIPiprazol 2021-07 Yes 5mg Take 5 mg U nivers e 5 mg 1-22 by mouth ity of tablet 00:00: in the [place] 00 morning. Medical Branch ARIPiprazol 2021-07 Yes 5mg Take 5 mg U nivers e 5 mg 1-22 by mouth ity of tablet 00:00: in the [place] 00 morning. [facility] Branch ARIPiprazol 2021-07 Yes 5mg Take 5 mg U nivers e 5 mg 1-22 by mouth ity of tablet 00:00: in the [place] 00 morning. Medical Branch ARIPiprazol 2021-07 Yes 5mg Take 5 mg U nivers e 5 mg 1-22 by mouth ity of tablet 00:00: in the [place] 00 morning. Medical Branch ARIPiprazol 2021-07 Yes 5mg Take 5 mg U nivers e 5 mg 1-22 by mouth ity of tablet 00:00: in the [place] 00 morning. Medical Branch ARIPiprazol 2021-07 Yes 5mg Take 5 mg U nivers e 5 mg 1-22 by mouth ity of tablet 00:00: in the [place] 00 morning. Medical Branch ARIPiprazol 2021-07 Yes 5mg Take 5 mg U nivers e 5 mg 1-22 by mouth ity of tablet 00:00: in the [place] 00 morning. Medical Branch ARIPiprazol 2021-07 Yes 5mg Take 5 mg U nivers e 5 mg 1-22 by mouth ity of tablet 00:00: in the [place] 00 morning. Medical Branch hydrOXYchlo 2021-073- No [id number] TAKE 1 AND [facility] roQUINE 200 08-20 12 ity of mg tablet 00:00: 00:00 TABLETS BY [place] 00 :00 MOUTH Medical EVERY DAY Branch hydrOXYchlo 2021-07- No [id number] TAKE 1 AND [facility] roQUINE 200 08-16 1/2 ity of mg tablet 00:00: 00:00 TABLETS BY [place] 00 :00 MOUTH Medical EVERY DAY Branch hydrOXYchlo 2021-07- No [id number] TAKE 1 AND [facility] roQUINE 200 08-16 12 ity of mg tablet 00:00: 00:00 TABLETS BY [place] 00 :00 MOUTH Medical EVERY DAY Branch DULoxetine 2021-07 Yes TAKE 1 Unive rs 60 mg 1-07 CAPSULE AT ity of capsule 00:00: NIGHT FOR [place] (S) Medical Branch metaxalone 2021-07 Yes 800mg Take 800 Un violeta 800 mg 1-07 mg by ity of tablet 00:00: mouth in [place] the Medical morning Branch and 800 mg in the evening. DULoxetine 2021-07 Yes TAKE 1 Unive rs 60 mg 1-07 CAPSULE AT ity of capsule 00:00: NIGHT FOR [place] (S) Medical Branch metaxalone 2021-07 Yes 800mg Take 800 Un violeta 800 mg 1-07 mg by ity of tablet 00:00: mouth in [place] the Medical morning Branch and 800 mg in the evening. DULoxetine 2021-07 Yes TAKE 1 Unive rs 60 mg 1-07 CAPSULE AT ity of capsule 00:00: NIGHT FOR [place] (S) Medical Branch metaxalone 2021-07 Yes 800mg Take 800 Un violeta 800 mg 1-07 mg by ity of tablet 00:00: mouth in [place] the Medical morning Branch and 800 mg in the evening. DULoxetine 2021-07 Yes TAKE 1 Unive rs 60 mg 1-07 CAPSULE AT ity of capsule 00:00: NIGHT FOR [place] DAY(S) Medical Branch metaxalone 2021-07 Yes 800mg Take 800 Un violeta 800 mg 1-07 mg by ity of tablet 00:00: mouth in [place] [address] the Medical morning Branch and 800 mg in the evening. DULoxetine 2021-07 Yes TAKE 1 Unive rs 60 mg 1-07 CAPSULE AT ity of capsule 00:00: NIGHT FOR [place] (S) Medical Branch metaxalone 2021-07 Yes 800mg Take 800 Un violeta 800 mg 1-07 mg by ity of tablet 00:00: mouth in [place] the Medical morning Branch and 800 mg in the evening. DULoxetine 2021-07 Yes TAKE 1 Unive rs 60 mg 1-07 CAPSULE AT ity of capsule 00:00: NIGHT FOR [place] (S) Medical Branch metaxalone 2021-07 Yes 800mg Take 800 Un violeta 800 mg 1-07 mg by ity of tablet 00:00: mouth in [place] the Medical morning Branch and 800 mg in the evening. DULoxetine 2021-07 Yes TAKE 1 Unive rs 60 mg 1-07 CAPSULE AT ity of capsule 00:00: NIGHT FOR [place] (S) Medical Branch metaxalone 2021-07 Yes 800mg Take 800 Un violeta 800 mg 1-07 mg by ity of tablet 00:00: mouth in [place] the Medical morning Branch and 800 mg in the evening. METHOTREXAT 2021-07 Yes [id number] 20mg TAKE 8 [facility] E 2.5 mg 1-07 TABLETS BY ity o f tablet 00:00: MOUTH [place] WEEKLY Medical Branch METHOTREXAT 2021-07 Yes [id number] 20mg TAKE 8 [facility] E 2.5 mg 1-07 TABLETS BY ity o f tablet 00:00: MOUTH [place] WEEKLY Medical Branch METHOTREXAT 2021-07 Yes [id number] 20mg TAKE 8 [facility] E 2.5 mg 1-07 TABLETS BY ity o f tablet 00:00: MOUTH [place] WEEKLY Medical Branch DULoxetine 2021-07 Yes TAKE 1 Unive rs 60 mg 1-07 CAPSULE AT ity of capsule 00:00: NIGHT FOR [place] (S) Medical Branch metaxalone 2021-07 Yes 800mg Take 800 Un violeta 800 mg 1-07 mg by ity of tablet 00:00: mouth in [place] [address] the Medical morning Branch and 800 mg in the evening. DULoxetine 2021-07 Yes TAKE 1 Unive rs 60 mg 1-07 CAPSULE AT ity of capsule 00:00: NIGHT FOR [place] (S) Medical Branch metaxalone 2021-07 Yes 800mg Take 800 Un violeta 800 mg 1-07 mg by ity of tablet 00:00: mouth in [place] 00 the Medical morning Branch and 800 mg in the evening. DULoxetine 2021-07 Yes TAKE 1 Unive rs 60 mg 1-07 CAPSULE AT ity of capsule 00:00: NIGHT FOR (S) Medical Branch metaxalone 2021-07 Yes 800mg Take 800 Un violeta 800 mg 1-07 mg by ity of tablet 00:00: mouth in [place] 00 the Medical morning Branch and 800 mg in the evening. DULoxetine 2021-07 Yes TAKE 1 Unive rs 60 mg 1-07 CAPSULE AT ity of capsule 00:00: NIGHT FOR [place] (S) Medical Branch metaxalone 2021-07 Yes 800mg Take 800 Un violeta 800 mg 1-07 mg by ity of tablet 00:00: mouth in [place] the Medical morning Branch and 800 mg in the evening. DULoxetine 2021-07 Yes TAKE 1 Unive rs 60 mg 1-07 CAPSULE AT ity of capsule 00:00: NIGHT FOR [place] (S) Medical Branch metaxalone 2021-07 Yes 800mg Take 800 Un violeta 800 mg 1-07 mg by ity of tablet 00:00: mouth in [place] the Medical morning Branch and 800 mg in the evening. DULoxetine 2021-07 Yes TAKE 1 Unive rs 60 mg 1-07 CAPSULE AT ity of capsule 00:00: NIGHT FOR (S) Medical Branch metaxalone 2021-07 Yes 800mg Take 800 Un violeta 800 mg 1-07 mg by ity of tablet 00:00: mouth in [place] the Medical morning Branch and 800 mg in the evening. DULoxetine 2021-07 Yes TAKE 1 Unive rs 60 mg 1-07 CAPSULE AT ity of capsule 00:00: NIGHT FOR [place] (S) Medical Branch metaxalone 2021-07 Yes 800mg Take 800 Un violeta 800 mg 1-07 mg by ity of tablet 00:00: mouth in [place] the Medical morning Branch and 800 mg in the evening. DULoxetine 2021-07 Yes TAKE 1 Unive rs 60 mg 1-07 CAPSULE AT ity of capsule 00:00: NIGHT FOR [place] (S) Medical Branch metaxalone 2021- Yes 800mg Take 800 Un violeta 800 mg 1-07 mg by ity of tablet 00:00: mouth in [place] 00 the Medical morning Branch and 800 mg in the evening. DULoxetine 2021-07 Yes TAKE 1 Unive rs 60 mg 1-07 CAPSULE AT ity of capsule 00:00: NIGHT FOR [place] (S) Medical Branch metaxalone 2021-07 Yes 800mg Take 800 Un violeta 800 mg 1-07 mg by ity of tablet 00:00: mouth in [place] 00 the Medical morning Branch and 800 mg in the evening. DULoxetine 2021-07 Yes TAKE 1 Unive rs 60 mg 1-07 CAPSULE AT ity of capsule 00:00: NIGHT FOR [place] (S) Medical Branch metaxalone 2021-07 Yes 800mg Take 800 Un violeta 800 mg 1-07 mg by ity of tablet 00:00: mouth in [place] the Medical morning Branch and 800 mg in the evening. DULoxetine 2021-07 Yes TAKE 1 Unive rs 60 mg 1-07 CAPSULE AT ity of capsule 00:00: NIGHT FOR [place] (S) Medical Branch metaxalone 2021-07 Yes 800mg Take 800 Un violeta 800 mg 1-07 mg by ity of tablet 00:00: mouth in [place] the Medical morning Branch and 800 mg in the evening. DULoxetine 2021-07 Yes TAKE 1 Unive rs 60 mg 1-07 CAPSULE AT ity of capsule 00:00: NIGHT FOR [place] (S) Medical Branch metaxalone 2021-07 Yes 800mg Take 800 Un violeta 800 mg 1-07 mg by ity of tablet 00:00: mouth in [place] the Medical morning Branch and 800 mg in the evening. DULoxetine 2021-07 Yes TAKE 1 Unive rs 60 mg 1-07 CAPSULE AT ity of capsule 00:00: NIGHT FOR [place] (S) Medical Branch metaxalone 2021-07 Yes 800mg Take 800 Un violeta 800 mg 1-07 mg by ity of tablet 00:00: mouth in [place] the Medical morning Branch and 800 mg in the evening. DULoxetine 2021-07 Yes TAKE 1 Unive rs 60 mg 1-07 CAPSULE AT ity of capsule 00:00: NIGHT FOR [place] (S) Medical Branch metaxalone 2021-07 Yes 800mg Take 800 Un violeta 800 mg 1-07 mg by ity of tablet 00:00: mouth in [place] 00 the Medical morning Branch and 800 mg in the evening. DULoxetine 2021-07 Yes TAKE 1 Unive rs 60 mg 1-07 CAPSULE AT ity of capsule 00:00: NIGHT FOR (S) Medical Branch metaxalone 2021-07 Yes 800mg Take 800 Un violeta 800 mg 1-07 mg by ity of tablet 00:00: mouth in [place] the Medical morning Branch and 800 mg in the evening. DULoxetine 2021-07 Yes TAKE 1 Unive rs 60 mg 1-07 CAPSULE AT ity of capsule 00:00: NIGHT FOR [place] (S) Medical Branch metaxalone 2021-07 Yes 800mg Take 800 Un violeta 800 mg 1-07 mg by ity of tablet 00:00: mouth in [place] the Medical morning Branch and 800 mg in the evening. DULoxetine 2021-07 Yes TAKE 1 Unive rs 60 mg 1-07 CAPSULE AT ity of capsule 00:00: NIGHT FOR (S) Medical Branch metaxalone 2021-07 Yes 800mg Take 800 Un violeta 800 mg 1-07 mg by ity of tablet 00:00: mouth in [place] the Medical morning Branch and 800 mg in the evening. DULoxetine 2021-07 Yes TAKE 1 Unive rs 60 mg 1-07 CAPSULE AT ity of capsule 00:00: NIGHT FOR [place] (S) Medical Branch metaxalone 2021-07 Yes 800mg Take 800 Un violeta 800 mg 1-07 mg by ity of tablet 00:00: mouth in [place] the Medical morning Branch and 800 mg in the evening. DULoxetine 2021-07 Yes TAKE 1 Unive rs 60 mg 1-07 CAPSULE AT ity of capsule 00:00: NIGHT FOR [place] (S) Medical Branch metaxalone 2021-07 Yes 800mg Take 800 Un violeta 800 mg 1-07 mg by ity of tablet 00:00: mouth in [place] the Medical morning Branch and 800 mg in the evening. DULoxetine 2021-07 Yes TAKE 1 Unive rs 60 mg 1-07 CAPSULE AT ity of capsule 00:00: NIGHT FOR [place] (S) Medical Branch metaxalone 2021-07 Yes 800mg Take 800 Un violeta 800 mg 1-07 mg by ity of tablet 00:00: mouth in [place] the Medical morning Branch and 800 mg in the evening. DULoxetine 2021-07 Yes TAKE 1 Unive rs 60 mg 1-07 CAPSULE AT ity of capsule 00:00: NIGHT FOR (S) Medical Branch metaxalone 2021-07 Yes 800mg Take 800 Un violeta 800 mg 1-07 mg by ity of tablet 00:00: mouth in [place] the Medical morning Branch and 800 mg in the evening. DULoxetine 2021-07 Yes TAKE 1 Unive rs 60 mg 1-07 CAPSULE AT ity of capsule 00:00: NIGHT FOR [place] (S) Medical Branch metaxalone 2021-07 Yes 800mg Take 800 Un violeta 800 mg 1-07 mg by ity of tablet 00:00: mouth in [place] the Medical morning Branch and 800 mg in the evening. DULoxetine 2021-07 Yes TAKE 1 Unive rs 60 mg 1-07 CAPSULE AT ity of capsule 00:00: NIGHT FOR [place] (S) Medical Branch metaxalone 2021-07 Yes 800mg Take 800 Un violeta 800 mg 1-07 mg by ity of tablet 00:00: mouth in [place] the Medical morning Branch and 800 mg in the evening. DULoxetine 2021-07 Yes TAKE 1 Unive rs 60 mg 1-07 CAPSULE AT ity of capsule 00:00: NIGHT FOR [place] (S) Medical Branch metaxalone 2021-07 Yes 800mg Take 800 Un violeta 800 mg 1-07 mg by ity of tablet 00:00: mouth in [place] the Medical morning Branch and 800 mg in the evening. DULoxetine 2021-07 Yes TAKE 1 Unive rs 60 mg 1-07 CAPSULE AT ity of capsule 00:00: NIGHT FOR [place] (S) Medical Branch metaxalone 2021-07 Yes 800mg Take 800 Un violeta 800 mg 1-07 mg by ity of tablet 00:00: mouth in [place] the Medical morning Branch and 800 mg in the evening. DULoxetine 2021-07 Yes TAKE 1 Unive rs 60 mg 1-07 CAPSULE AT ity of capsule 00:00: NIGHT FOR [place] (S) Medical Branch metaxalone 2021- Yes 800mg Take 800 Un violeta 800 mg 1-07 mg by ity of tablet 00:00: mouth in [place] 00 the Medical morning Branch and 800 mg in the evening. DULoxetine 2021-07 Yes TAKE 1 Unive rs 60 mg 1-07 CAPSULE AT ity of capsule 00:00: NIGHT FOR (S) Medical Branch metaxalone 2021-07 Yes 800mg Take 800 Un violeta 800 mg 1-07 mg by ity of tablet 00:00: mouth in [place] the Medical morning Branch and 800 mg in the evening. DULoxetine 2021-07 Yes TAKE 1 Unive rs 60 mg 1-07 CAPSULE AT ity of capsule 00:00: NIGHT FOR (S) Medical Branch metaxalone 2021-07 Yes 800mg Take 800 Un violeta 800 mg 1-07 mg by ity of tablet 00:00: mouth in [place] the Medical morning Branch and 800 mg in the evening. DULoxetine 2021-07 Yes TAKE 1 Unive rs 60 mg 1-07 CAPSULE AT ity of capsule 00:00: NIGHT FOR (S) Medical Branch metaxalone 2021-07 Yes 800mg Take 800 Un violeta 800 mg 1-07 mg by ity of tablet 00:00: mouth in [place] the Medical morning Branch and 800 mg in the evening. DULoxetine 2021-07 Yes TAKE 1 Unive rs 60 mg 1-07 CAPSULE AT ity of capsule 00:00: NIGHT FOR (S) Medical Branch metaxalone 2021-07 Yes 800mg Take 800 Un violeta 800 mg 1-07 mg by ity of tablet 00:00: mouth in [place] the Medical morning Branch and 800 mg in the evening. DULoxetine 2021-07 Yes TAKE 1 Unive rs 60 mg 1-07 CAPSULE AT ity of capsule 00:00: NIGHT FOR [place] (S) Medical Branch metaxalone 2021-07 Yes 800mg Take 800 Un violeta 800 mg 1-07 mg by ity of tablet 00:00: mouth in [place] the Medical morning Branch and 800 mg in the evening. DULoxetine 2021-07 Yes TAKE 1 Unive rs 60 mg 1-07 CAPSULE AT ity of capsule 00:00: NIGHT FOR [place] (S) Medical Branch metaxalone 2021-07 Yes 800mg Take 800 Un violeta 800 mg 1-07 mg by ity of tablet 00:00: mouth in [place] 00 the Medical morning Branch and 800 mg in the evening. DULoxetine 2021-07 Yes TAKE 1 Unive rs 60 mg 1-07 CAPSULE AT ity of capsule 00:00: NIGHT FOR (S) Medical Branch metaxalone 2021-07 Yes 800mg Take 800 Un violeta 800 mg 1-07 mg by ity of tablet 00:00: mouth in [place] 00 the Medical morning Branch and 800 mg in the evening. DULoxetine 2021-07 Yes TAKE 1 Unive rs 60 mg 1-07 CAPSULE AT ity of capsule 00:00: NIGHT FOR [place] (S) Medical Branch metaxalone 2021-07 Yes 800mg Take 800 Un violeta 800 mg 1-07 mg by ity of tablet 00:00: mouth in [place] the Medical morning Branch and 800 mg in the evening. DULoxetine 2021-07 Yes TAKE 1 Unive rs 60 mg 1-07 CAPSULE AT ity of capsule 00:00: NIGHT FOR [place] (S) Medical Branch metaxalone 2021-07 Yes 800mg Take 800 Un violeta 800 mg 1-07 mg by ity of tablet 00:00: mouth in [place] the Medical morning Branch and 800 mg in the evening. DULoxetine 2021-07 Yes TAKE 1 Unive rs 60 mg 1-07 CAPSULE AT ity of capsule 00:00: NIGHT FOR (S) Medical Branch metaxalone 2021-07 Yes 800mg Take 800 Un violeta 800 mg 1-07 mg by ity of tablet 00:00: mouth in [place] the Medical morning Branch and 800 mg in the evening. DULoxetine 2021-07 Yes TAKE 1 Unive rs 60 mg 1-07 CAPSULE AT ity of capsule 00:00: NIGHT FOR [place] (S) Medical Branch metaxalone 2021-07 Yes 800mg Take 800 Un violeta 800 mg 1-07 mg by ity of tablet 00:00: mouth in [place] the Medical morning Branch and 800 mg in the evening. DULoxetine 2021-07 Yes TAKE 1 Unive rs 60 mg 1-07 CAPSULE AT ity of capsule 00:00: NIGHT FOR [place] (S) Medical Branch metaxalone 2021-07 Yes 800mg Take 800 Un violeta 800 mg 1-07 mg by ity of tablet 00:00: mouth in [place] 00 the Medical morning Branch and 800 mg in the evening. DULoxetine 2021-07 Yes TAKE 1 Unive rs 60 mg 1-07 CAPSULE AT ity of capsule 00:00: NIGHT FOR (S) Medical Branch metaxalone 2021-07 Yes 800mg Take 800 Un violeta 800 mg 1-07 mg by ity of tablet 00:00: mouth in [place] 00 the Medical morning Branch and 800 mg in the evening. DULoxetine 2021-07 Yes TAKE 1 Unive rs 60 mg 1-07 CAPSULE AT ity of capsule 00:00: NIGHT FOR (S) Medical Branch metaxalone 2021-07 Yes 800mg Take 800 Un violeta 800 mg 1-07 mg by ity of tablet 00:00: mouth in [place] the Medical morning Branch and 800 mg in the evening. DULoxetine 2021-07 Yes TAKE 1 Unive rs 60 mg 1-07 CAPSULE AT ity of capsule 00:00: NIGHT FOR (S) Medical Branch metaxalone 2021-07 Yes 800mg Take 800 Un violeta 800 mg 1-07 mg by ity of tablet 00:00: mouth in [place] the Medical morning Branch and 800 mg in the evening. DULoxetine 2021-07 Yes TAKE 1 Unive rs 60 mg 1-07 CAPSULE AT ity of capsule 00:00: NIGHT FOR (S) Medical Branch metaxalone 2021-07 Yes 800mg Take 800 Un violeta 800 mg 1-07 mg by ity of tablet 00:00: mouth in [place] the Medical morning Branch and 800 mg in the evening. DULoxetine 2021-07 Yes TAKE 1 Unive rs 60 mg 1-07 CAPSULE AT ity of capsule 00:00: NIGHT FOR (S) Medical Branch metaxalone 2021-07 Yes 800mg Take 800 Un violeta 800 mg 1-07 mg by ity of tablet 00:00: mouth in [place] the Medical morning Branch and 800 mg in the evening. DULoxetine 2021-07 Yes TAKE 1 Unive rs 60 mg 1-07 CAPSULE AT ity of capsule 00:00: NIGHT FOR (S) Medical Branch metaxalone 2021-07 Yes 800mg Take 800 Un violeta 800 mg 1-07 mg by ity of tablet 00:00: mouth in [place] 00 the Medical morning Branch and 800 mg in the evening. DULoxetine 2021-07 Yes TAKE 1 Unive rs 60 mg 1-07 CAPSULE AT ity of capsule 00:00: NIGHT FOR (S) Medical Branch metaxalone 2021-07 Yes 800mg Take 800 Un violeta 800 mg 1-07 mg by ity of tablet 00:00: mouth in [place] 00 the Medical morning Branch and 800 mg in the evening. DULoxetine 2021-07 Yes TAKE 1 Unive rs 60 mg 1-07 CAPSULE AT ity of capsule 00:00: NIGHT FOR (S) Medical Branch metaxalone 2021-07 Yes 800mg Take 800 Un violeta 800 mg 1-07 mg by ity of tablet 00:00: mouth in [place] the Medical morning Branch and 800 mg in the evening. DULoxetine 2021-07 Yes TAKE 1 Unive rs 60 mg 1-07 CAPSULE AT ity of capsule 00:00: NIGHT FOR (S) Medical Branch metaxalone 2021-07 Yes 800mg Take 800 Un violeta 800 mg 1-07 mg by ity of tablet 00:00: mouth in [place] the Medical morning Branch and 800 mg in the evening. DULoxetine 2021-07 Yes TAKE 1 Un[facility] rs 60 mg 1-07 CAPSULE AT ity of capsule 00:00: NIGHT FOR (S) Medical Branch metaxalone 2021-07 Yes 800mg Take 800 Un violeta 800 mg 1-07 mg by ity of tablet 00:00: mouth in [place] the Medical morning Branch and 800 mg in the evening. DULoxetine 2021-07 Yes TAKE 1 [facility] rs 60 mg 1-07 CAPSULE AT ity of capsule 00:00: NIGHT FOR (S) Medical Branch metaxalone 2021-07 Yes 800mg Take 800 Un violeta 800 mg 1-07 mg by ity of tablet 00:00: mouth in [place] the Medical morning Branch and 800 mg in the evening. DULoxetine 2021-07 Yes TAKE 1 [facility] rs 60 mg 1-07 CAPSULE AT ity of capsule 00:00: NIGHT FOR [place] (S) Medical Branch metaxalone 2021-07 Yes 800mg Take 800 Un violeta 800 mg 1-07 mg by ity of tablet 00:00: mouth in [place] 00 the Medical morning Branch and 800 mg in the evening. DULoxetine 2021-07 Yes TAKE 1 [facility] rs 60 mg 1-07 CAPSULE AT ity of capsule 00:00: NIGHT FOR (S) Medical Branch metaxalone 2021-07 Yes 800mg Take 800 Un violeta 800 mg 1-07 mg by ity of tablet 00:00: mouth in [place] 00 the Medical morning Branch and 800 mg in the evening. DULoxetine 2021-07 Yes TAKE 1 [facility] rs 60 mg 1-07 CAPSULE AT ity of capsule 00:00: NIGHT FOR (S) Medical Branch metaxalone 2021-07 Yes 800mg Take 800 Un violeta 800 mg 1-07 mg by ity of tablet 00:00: mouth in [place] the Medical morning Branch and 800 mg in the evening. DULoxetine 2021-07 Yes TAKE 1 [facility] rs 60 mg 1-07 CAPSULE AT ity of capsule 00:00: NIGHT FOR (S) Medical Branch metaxalone 2021-07 Yes 800mg Take 800 Un violeta 800 mg 1-07 mg by ity of tablet 00:00: mouth in [place] the Medical morning Branch and 800 mg in the evening. DULoxetine 2021-07 Yes TAKE 1 Unive rs 60 mg 1-07 CAPSULE AT ity of capsule 00:00: NIGHT FOR (S) Medical Branch metaxalone 2021-07 Yes 800mg Take 800 Un violeta 800 mg 1-07 mg by ity of tablet 00:00: mouth in [place] the Medical morning Branch and 800 mg in the evening. DULoxetine 2021-07 Yes TAKE 1 [facility] rs 60 mg 1-07 CAPSULE AT ity of capsule 00:00: NIGHT FOR (S) Medical Branch metaxalone 2021-07 Yes 800mg Take 800 Un violeta 800 mg 1-07 mg by ity of tablet 00:00: mouth in [place] the Medical morning Branch and 800 mg in the evening. DULoxetine 2021-07 Yes TAKE 1 [facility] rs 60 mg 1-07 CAPSULE AT ity of capsule 00:00: NIGHT FOR (S) Medical Branch metaxalone 2021-07 Yes 800mg Take 800 Un violeta 800 mg 1-07 mg by ity of tablet 00:00: mouth in [place] the Medical morning Branch and 800 mg in the evening. DULoxetine 2021-07 Yes TAKE 1 Unive rs 60 mg 1-07 CAPSULE AT ity of capsule 00:00: NIGHT FOR (S) Medical Branch metaxalone 2021-07 Yes 800mg Take 800 Un violeta 800 mg 1-07 mg by ity of tablet 00:00: mouth in [place] the Medical morning Branch and 800 mg in the evening. DULoxetine 2021-07 Yes TAKE 1 Unive rs 60 mg 1-07 CAPSULE AT ity of capsule 00:00: NIGHT FOR [place] (S) Medical Branch metaxalone 2021-07 Yes 800mg Take 800 Un violeta 800 mg 1-07 mg by ity of tablet 00:00: mouth in [place] the Medical morning Branch and 800 mg in the evening. DULoxetine 2021-07 Yes TAKE 1 [facility] rs 60 mg 1-07 CAPSULE AT ity of capsule 00:00: NIGHT FOR [place] (S) Medical Branch metaxalone 2021-07 Yes 800mg Take 800 Un violeta 800 mg 1-07 mg by ity of tablet 00:00: mouth in [place] the Medical morning Branch and 800 mg in the evening. DULoxetine 2021-07 Yes TAKE 1 [facility] rs 60 mg 1-07 CAPSULE AT ity of capsule 00:00: NIGHT FOR (S) Medical Branch metaxalone 2021-07 Yes 800mg Take 800 Un violeta 800 mg 1-07 mg by ity of tablet 00:00: mouth in [place] the Medical morning Branch and 800 mg in the evening. METHOTREXAT 2021-07- No [id number] 20mg TAKE 8 [facility] E 2.5 mg 1-07 12-01 TABLETS BY ity of tablet 00:00: 00:00 MOUTH [place] 00 :00 WEEKLY Medical Branch methotrexat 2021- Yes [id number] 20mg Take 8 [facility] e 2.5 mg 0-14 tablets by ity o f tablet 00:00: mouth [place] 00 weekly Medical Branch methotrexat 2021- Yes [id number] 20mg Take 8 [facility] e 2.5 mg 0-14 tablets by ity o f tablet 00:00: [facility] weekly Medical Branch methotrexat 2021-2021- No [id number] 20mg Take 8 [facility] e 2.5 mg 0-14 11-07 tablets by ity of tablet 00:00: 00:00 [facility] 00 : weekly Medical Branch methotrexat 2021-2021- No [id number] 20mg Take 8 [facility] e 2.5 mg 0-14 11-07 tablets by ity of tablet 00:00: 00:00 [facility] 00 : weekly Medical Branch ALLOPURINOL 2021-0 Yes [id number] 200mg TAKE 2 [facility] 100 mg 9-14 TABLETS BY ity of tablet 00:00: [facility] DAILY Medical Branch ALLOPURINOL 2021-0 Yes [id number] 200mg TAKE 2 [facility] 100 mg 9-14 TABLETS BY ity of tablet 00:00: [facility] DAILY Medical Branch ALLOPURINOL 2021-0 Yes [id number] 200mg TAKE 2 [facility] 100 mg 9-14 TABLETS BY ity of tablet 00:00: [facility] DAILY Medical Branch ALLOPURINOL 2021-0 Yes [id number] 200mg TAKE 2 [facility] 100 mg 9-14 TABLETS BY ity of tablet 00:00: [facility] DAILY Medical Branch ALLOPURINOL 2021-0 Yes [id number] 200mg TAKE 2 [facility] 100 mg 9-14 TABLETS BY ity of tablet 00:00: [facility] DAILY Medical Branch ALLOPURINOL 2021-0 Yes [id number] 200mg TAKE 2 [facility] 100 mg 9-14 TABLETS BY ity of tablet 00:00: [facility] DAILY Medical Branch ALLOPURINOL 2-0 Yes [id number] 200mg TAKE 2 [facility] 100 mg 9-14 TABLETS BY ity of tablet 00:00: [facility] DAILY Medical Branch ALLOPURINOL 2021-0 Yes [id number] 200mg TAKE 2 [facility] 100 mg 9-14 TABLETS BY ity of tablet 00:00: [facility] DAILY Medical Branch ALLOPURINOL 2021-0 Yes [id number] 200mg TAKE 2 [facility] 100 mg 9-14 TABLETS BY ity of tablet 00:00: [facility] DAILY Medical Branch ALLOPURINOL 2021-0 Yes [id number] 200mg TAKE 2 [facility] 100 mg 9-14 TABLETS BY ity of tablet 00:00: [facility] DAILY Medical Branch ALLOPURINOL 2-0 Yes [id number] 200mg TAKE 2 [facility] 100 mg 9-14 TABLETS BY ity of tablet 00:00: [facility] DAILY Medical Branch ALLOPURINOL 2-0 Yes [id number] 200mg TAKE 2 [facility] 100 mg 9-14 TABLETS BY ity of tablet 00:00: DAILY Medical Branch ALLOPURINOL 2021-0 Yes [id number] 200mg TAKE 2 [facility] 100 mg 9-14 TABLETS BY ity of tablet 00:00: [facility] DAILY Medical Branch ALLOPURINOL 2021-0 Yes [id number] 200mg TAKE 2 [facility] 100 mg 9-14 TABLETS BY ity of tablet 00:00: [facility] DAILY Medical Branch ALLOPURINOL 2021-0 Yes [id number] 200mg TAKE 2 [facility] 100 mg 9-14 TABLETS BY ity of tablet 00:00: [facility] DAILY Medical Branch ALLOPURINOL 2021-0 Yes [id number] 200mg TAKE 2 [facility] 100 mg 9-14 TABLETS BY ity of tablet 00:00: [facility] DAILY Medical Branch ALLOPURINOL 2021-0 Yes [id number] 200mg TAKE 2 [facility] 100 mg 9-14 TABLETS BY ity of tablet 00:00: [facility] DAILY Medical Branch ALLOPURINOL 2021-0 Yes [id number] 200mg TAKE 2 [facility] 100 mg 9-14 TABLETS BY ity of tablet 00:00: [facility] DAILY Medical Branch ALLOPURINOL 2021-0 Yes [id number] 200mg TAKE 2 [facility] 100 mg 9-14 TABLETS BY ity of tablet 00:00: [facility] DAILY Medical Branch ALLOPURINOL 2-0 Yes [id number] 200mg TAKE 2 [facility] 100 mg 9-14 TABLETS BY ity of tablet 00:00: [facility] DAILY Medical Branch ALLOPURINOL 2-0 Yes [id number] 200mg TAKE 2 [facility] 100 mg 9-14 TABLETS BY ity of tablet 00:00: [facility] DAILY Medical Branch ALLOPURINOL 2-0 Yes [id number] 200mg TAKE 2 [facility] 100 mg 9-14 TABLETS BY ity of tablet 00:00: [facility] DAILY Medical Branch ALLOPURINOL 2-0 Yes [id number] 200mg TAKE 2 [facility] 100 mg 9-14 TABLETS BY ity of tablet 00:00: [facility] DAILY Medical Branch ALLOPURINOL 0 Yes [id number] 200mg TAKE 2 [facility] 100 mg 9-14 TABLETS BY ity of tablet 00:00: [facility] DAILY Medical Branch ALLOPURINOL 2021-0 Yes [id number] 200mg TAKE 2 [facility] 100 mg 9-14 TABLETS BY ity of tablet 00:00: [facility] DAILY Medical Branch ALLOPURINOL 2021-0 Yes [id number] 200mg TAKE 2 [facility] 100 mg 9-14 TABLETS BY ity of tablet 00:00: [facility] DAILY Medical Branch ALLOPURINOL 2021-0 Yes [id number] 200mg TAKE 2 [facility] 100 mg 9-14 TABLETS BY ity of tablet 00:00: [facility] DAILY Medical Branch ALLOPURINOL 2021-0 Yes [id number] 200mg TAKE 2 [facility] 100 mg 9-14 TABLETS BY ity of tablet 00:00: [facility] DAILY Medical Branch ALLOPURINOL 2021-0 3- No [id number] 200mg TAKE 2 [facility] 100 mg 9-14 02-18 TABLETS BY ity of tablet 00:00: 00:00 [facility] 00 :00 DAILY Medical Branch ALLOPURINOL 2021-0 3- No [id number] 200mg TAKE 2 [facility] 100 mg 9-14 02-18 TABLETS BY ity of tablet 00:00: 00:00 [facility] 00 :00 DAILY Medical Branch ALLOPURINOL 2021-0 3- No [id number] 200mg TAKE 2 [facility] 100 mg 9-14 02-18 TABLETS BY ity of tablet 00:00: 00:00 [facility] 00 :00 DAILY Medical Branch ALLOPURINOL 2021-0 2023- No [id number] 200mg TAKE 2 [facility] 100 mg 9-14 02-18 TABLETS BY ity of tablet 00:00: 00:00 [facility] 00 :00 DAILY Medical Branch ALLOPURINOL 2021-0 3- No [id number] 200mg TAKE 2 [facility] 100 mg 9-14 02-18 TABLETS BY ity of tablet 00:00: 00:00 [facility] 00 :00 DAILY Medical Branch ALLOPURINOL 2021-0 2023- No [id number] 200mg TAKE 2 [facility] 100 mg 9-14 02-18 TABLETS BY ity of tablet 00:00: 00:00 [facility] 00 :00 DAILY Medical Branch ibuprofen 2-0 Yes 800mg Take 1 Unive rs 800 mg 9-07 tablet by ity of tablet 00:00: mouth [place] 00 every 8 Medical (eight) Branch hours as needed for Pain (scale 4-6). ibuprofen 2022-0 Yes 800mg Take 1 Unive rs 800 mg 9-07 tablet by ity of tablet 00:00: mouth [place] 00 every 8 Medical (eight) Branch hours as needed for Pain (scale 4-6). ibuprofen 2022-0 Yes 800mg Take 1 Unive rs 800 mg 9-07 tablet by ity of tablet 00:00: mouth [place] 00 every 8 Medical (eight) Branch hours as needed for Pain (scale 4-6). ibuprofen 2022-0 Yes 800mg Take 1 Unive rs 800 mg 9-07 tablet by ity of tablet 00:00: mouth [place] 00 every 8 Medical (eight) Branch hours as needed for Pain (scale 4-6). ibuprofen 2022-0 Yes 800mg Take 1 Unive rs 800 mg 9-07 tablet by ity of tablet 00:00: mouth [place] 00 every 8 Medical (eight) Branch hours as needed for Pain (scale 4-6). ibuprofen 2022-0 Yes 800mg Take 1 Unive rs 800 mg 9-07 tablet by ity of tablet 00:00: mouth [place] 00 every 8 Medical (eight) Branch hours as needed for Pain (scale 4-6). ibuprofen 2022-0 Yes 800mg Take 1 Unive rs 800 mg 9-07 tablet by ity of tablet 00:00: mouth [place] 00 every 8 Medical (eight) Branch hours as needed for Pain (scale 4-6). ibuprofen 2022-0 Yes 800mg Take 1 Unive rs 800 mg 9-07 tablet by ity of tablet 00:00: mouth [place] 00 every 8 Medical (eight) Branch hours as needed for Pain (scale 4-6). ibuprofen 2022-0 Yes 800mg Take 1 Unive rs 800 mg 9-07 tablet by ity of tablet 00:00: mouth [place] 00 every 8 Medical (eight) Branch hours as needed for Pain (scale 4-6). ibuprofen 2022-0 Yes 800mg Take 1 Unive rs 800 mg 9-07 tablet by ity of tablet 00:00: mouth [place] 00 every 8 Medical (eight) Branch hours as needed for Pain (scale 4-6). ibuprofen 2022-0 Yes 800mg Take 1 Unive rs 800 mg 9-07 tablet by ity of tablet 00:00: mouth [place] 00 every 8 Medical (eight) Branch hours as needed for Pain (scale 4-6). ibuprofen 2022-0 Yes 800mg Take 1 Unive rs 800 mg 9-07 tablet by ity of tablet 00:00: mouth [place] 00 every 8 Medical (eight) Branch hours as needed for Pain (scale 4-6). ibuprofen 2022-0 Yes 800mg Take 1 Unive rs 800 mg 9-07 tablet by ity of tablet 00:00: mouth [place] 00 every 8 Medical (eight) Branch hours as needed for Pain (scale 4-6). ibuprofen 2022-0 Yes 800mg Take 1 Unive rs 800 mg 9-07 tablet by ity of tablet 00:00: mouth [place] 00 every 8 Medical (eight) Branch hours as needed for Pain (scale 4-6). ibuprofen 2022-0 Yes 800mg Take 1 Unive rs 800 mg 9-07 tablet by ity of tablet 00:00: mouth [place] 00 every 8 Medical (eight) Branch hours as needed for Pain (scale 4-6). ibuprofen 2022-0 Yes 800mg Take 1 Unive rs 800 mg 9-07 tablet by ity of tablet 00:00: mouth [place] 00 every 8 Medical (eight) Branch hours as needed for Pain (scale 4-6). ibuprofen 2022-0 Yes 800mg Take 1 Unive rs 800 mg 9-07 tablet by ity of tablet 00:00: mouth [place] 00 every 8 Medical (eight) Branch hours as needed for Pain (scale 4-6). ibuprofen 2022-0 Yes 800mg Take 1 Unive rs 800 mg 9-07 tablet by ity of tablet 00:00: mouth [place] 00 every 8 Medical (eight) Branch hours as needed for Pain (scale 4-6). ibuprofen 2022-0 Yes 800mg Take 1 Unive rs 800 mg 9-07 tablet by ity of tablet 00:00: mouth [place] 00 every 8 Medical (eight) Branch hours as needed for Pain (scale 4-6). ibuprofen 2022-0 Yes 800mg Take 1 Unive rs 800 mg 9-07 tablet by ity of tablet 00:00: mouth [place] 00 every 8 Medical (eight) Branch hours as needed for Pain (scale 4-6). ibuprofen 2022-0 Yes 800mg Take 1 Unive rs 800 mg 9-07 tablet by ity of tablet 00:00: mouth [place] 00 every 8 Medical (eight) Branch hours as needed for Pain (scale 4-6). ibuprofen 2022-0 Yes 800mg Take 1 Unive rs 800 mg 9-07 tablet by ity of tablet 00:00: mouth [place] 00 every 8 Medical (eight) Branch hours as needed for Pain (scale 4-6). ibuprofen 2022-0 Yes 800mg Take 1 Unive rs 800 mg 9-07 tablet by ity of tablet 00:00: mouth [place] 00 every 8 Medical (eight) Branch hours as needed for Pain (scale 4-6). ibuprofen 2022-0 Yes 800mg Take 1 Unive rs 800 mg 9-07 tablet by ity of tablet 00:00: mouth [place] 00 every 8 Medical (eight) Branch hours as needed for Pain (scale 4-6). ibuprofen 2022-0 Yes 800mg Take 1 Unive rs 800 mg 9-07 tablet by ity of tablet 00:00: mouth [place] 00 every 8 Medical (eight) Branch hours as needed for Pain (scale 4-6). ibuprofen 2022-0 Yes 800mg Take 1 Unive rs 800 mg 9-07 tablet by ity of tablet 00:00: mouth [place] 00 every 8 Medical (eight) Branch hours as needed for Pain (scale 4-6). ibuprofen 2022-0 Yes 800mg Take 1 Unive rs 800 mg 9-07 tablet by ity of tablet 00:00: mouth [place] 00 every 8 Medical (eight) Branch hours as needed for Pain (scale 4-6). ibuprofen 2022-0 Yes 800mg Take 1 Unive rs 800 mg 9-07 tablet by ity of tablet 00:00: mouth [place] 00 every 8 Medical (eight) Branch hours as needed for Pain (scale 4-6). ibuprofen 2022-0 Yes 800mg Take 1 Unive rs 800 mg 9-07 tablet by ity of tablet 00:00: mouth [place] 00 every 8 Medical (eight) Branch hours as needed for Pain (scale 4-6). ibuprofen 2022-0 Yes 800mg Take 1 Unive rs 800 mg 9-07 tablet by ity of tablet 00:00: mouth [place] 00 every 8 Medical (eight) Branch hours as needed for Pain (scale 4-6). ibuprofen 2022-0 Yes 800mg Take 1 Unive rs 800 mg 9-07 tablet by ity of tablet 00:00: mouth [place] 00 every 8 Medical (eight) Branch hours as needed for Pain (scale 4-6). ibuprofen 2022-0 Yes 800mg Take 1 Unive rs 800 mg 9-07 tablet by ity of tablet 00:00: mouth [place] 00 every 8 Medical (eight) Branch hours as needed for Pain (scale 4-6). ibuprofen 2022-0 Yes 800mg Take 1 Unive rs 800 mg 9-07 tablet by ity of tablet 00:00: mouth [place] 00 every 8 Medical (eight) Branch hours as needed for Pain (scale 4-6). ibuprofen 2022-0 Yes 800mg Take 1 Unive rs 800 mg 9-07 tablet by ity of tablet 00:00: mouth [place] 00 every 8 Medical (eight) Branch hours as needed for Pain (scale 4-6). ibuprofen 2022-0 Yes 800mg Take 1 Unive rs 800 mg 9-07 tablet by ity of tablet 00:00: mouth [place] 00 every 8 Medical (eight) Branch hours as needed for Pain (scale 4-6). ibuprofen 2022-0 Yes 800mg Take 1 Unive rs 800 mg 9-07 tablet by ity of tablet 00:00: mouth [place] 00 every 8 Medical (eight) Branch hours as needed for Pain (scale 4-6). ibuprofen 2022-0 Yes 800mg Take 1 Unive rs 800 mg 9-07 tablet by ity of tablet 00:00: mouth [place] 00 every 8 Medical (eight) Branch hours as needed for Pain (scale 4-6). ibuprofen 2022-0 Yes 800mg Take 1 Unive rs 800 mg 9-07 tablet by ity of tablet 00:00: mouth [place] 00 every 8 Medical (eight) Branch hours as needed for Pain (scale 4-6). ibuprofen 2022-0 Yes 800mg Take 1 Unive rs 800 mg 9-07 tablet by ity of tablet 00:00: mouth [place] 00 every 8 Medical (eight) Branch hours as needed for Pain (scale 4-6). ibuprofen 2022-0 Yes 800mg Take 1 Unive rs 800 mg 9-07 tablet by ity of tablet 00:00: mouth [place] 00 every 8 Medical (eight) Branch hours as needed for Pain (scale 4-6). ibuprofen 2022-0 Yes 800mg Take 1 Unive rs 800 mg 9-07 tablet by ity of tablet 00:00: mouth [place] 00 every 8 Medical (eight) Branch hours as needed for Pain (scale 4-6). ibuprofen 2022-0 Yes 800mg Take 1 Unive rs 800 mg 9-07 tablet by ity of tablet 00:00: mouth [place] 00 every 8 Medical (eight) Branch hours as needed for Pain (scale 4-6). ibuprofen 2022-0 Yes 800mg Take 1 Unive rs 800 mg 9-07 tablet by ity of tablet 00:00: mouth [place] 00 every 8 Medical (eight) Branch hours as needed for Pain (scale 4-6). ibuprofen 2022-0 Yes 800mg Take 1 Unive rs 800 mg 9-07 tablet by ity of tablet 00:00: mouth [place] 00 every 8 Medical (eight) Branch hours as needed for Pain (scale 4-6). ibuprofen 2022-0 Yes 800mg Take 1 Unive rs 800 mg 9-07 tablet by ity of tablet 00:00: mouth [place] 00 every 8 Medical (eight) Branch hours as needed for Pain (scale 4-6). ibuprofen 2022-0 Yes 800mg Take 1 Unive rs 800 mg 9-07 tablet by ity of tablet 00:00: mouth [place] 00 every 8 Medical (eight) Branch hours as needed for Pain (scale 4-6). ibuprofen 2022-0 Yes 800mg Take 1 Unive rs 800 mg 9-07 tablet by ity of tablet 00:00: mouth [place] 00 every 8 Medical (eight) Branch hours as needed for Pain (scale 4-6). ibuprofen 2022-0 Yes 800mg Take 1 Unive rs 800 mg 9-07 tablet by ity of tablet 00:00: mouth [place] 00 every 8 Medical (eight) Branch hours as needed for Pain (scale 4-6). ibuprofen 2022-0 Yes 800mg Take 1 Unive rs 800 mg 9-07 tablet by ity of tablet 00:00: mouth [place] 00 every 8 Medical (eight) Branch hours as needed for Pain (scale 4-6). ibuprofen 2022-0 Yes 800mg Take 1 Unive rs 800 mg 9-07 tablet by ity of tablet 00:00: mouth [place] 00 every 8 Medical (eight) Branch hours as needed for Pain (scale 4-6). ibuprofen 2022-0 Yes 800mg Take 1 Unive rs 800 mg 9-07 tablet by ity of tablet 00:00: mouth [place] 00 every 8 Medical (eight) Branch hours as needed for Pain (scale 4-6). ibuprofen 2022-0 Yes 800mg Take 1 Unive rs 800 mg 9-07 tablet by ity of tablet 00:00: mouth [place] 00 every 8 Medical (eight) Branch hours as needed for Pain (scale 4-6). ibuprofen 2022-0 Yes 800mg Take 1 Unive rs 800 mg 9-07 tablet by ity of tablet 00:00: mouth [place] 00 every 8 Medical (eight) Branch hours as needed for Pain (scale 4-6). ibuprofen 2022-0 Yes 800mg Take 1 Unive rs 800 mg 9-07 tablet by ity of tablet 00:00: mouth [place] 00 every 8 Medical (eight) Branch hours as needed for Pain (scale 4-6). ibuprofen 2022-0 Yes 800mg Take 1 Un[facility] rs 800 mg 9-07 tablet by ity of tablet 00:00: mouth [place] 00 every 8 Medical (eight) Branch hours as needed for Pain (scale 4-6). ibuprofen 2022-0 2023- No 800mg Take 1 Univ ers 800 mg 9-07 03-18 tablet by ity of tablet 00:00: 00:00 mouth [place] 00 :00 every 8 Medical (eight) Branch hours as needed for Pain (scale 4-6). ibuprofen 2022-0 2023- No 800mg Take 1 Univ ers 800 mg 9-07 03-18 tablet by ity of tablet 00:00: 00:00 mouth [place] 00 :00 every 8 Medical (eight) Branch hours as needed for Pain (scale 4-6). methotrexat 2022-0 2022- No [id number] 20mg Take 8 [facility] e 2.5 mg 7-11 10-10 tablets by ity of tablet 00:00: 04:59 mouth [place] 00 :00 weekly Medical Branch methotrexat 2022-0 2022- No [id number] 20mg Take 8 [facility] e 2.5 mg 7-11 10-10 tablets by ity of tablet 00:00: 04:59 mouth [place] 00 :00 weekly Medical Branch methotrexat 2022-0 2022- No [id number] 20mg Take 8 [facility] e 2.5 mg 7-11 10-10 tablets by ity of tablet 00:00: 04:59 mouth [place] 00 :00 weekly Medical Branch LATANOPROST 0 Yes [id number] INSTILL 1 [facility] 0.005 % 6-27 [id number] DROP IN ity of ophthalmic 00:00: [place]OTH [place] 00 AT [facility] LATANOPROST 0 Yes [id number] INSTILL 1 [facility] 0.005 % 6-27 [id number] DROP IN ity of ophthalmic 00:00: [place] 00 AT [facility] LATANOPROST 0 Yes [id number] INSTILL 1 [facility] 0.005 % 6-27 [id number] DROP IN ity of ophthalmic 00:00: [place] 00 AT [facility] LATANOPROST 0 Yes [id number] INSTILL 1 [facility] 0.005 % 6-27 DROP IN ity of ophthalmic 00:00: [place] 00 AT [facility] LATANOPROST 0 Yes [id number] INSTILL 1 [facility] 0.005 % 6-27 DROP IN ity of ophthalmic 00:00: [place] 00 AT [facility] LATANOPROST 0 Yes [id number] INSTILL 1 [facility] 0.005 % 6-27 DROP IN ity of ophthalmic 00:00: [place] E[place] 00 AT [facility] LATANOPROST 0 Yes [id number] INSTILL 1 [facility] 0.005 % 6-27 DROP IN ity of ophthalmic 00:00: [place] 00 AT [facility] LATANOPROST 0 Yes [id number] INSTILL 1 [facility] 0.005 % 6-27 DROP IN ity of ophthalmic 00:00: [place] 00 AT [facility] LATANOPROST 0 Yes [id number] INSTILL 1 [facility] 0.005 % 6-27 DROP IN ity of ophthalmic 00:00: B[place] EYES [place] 00 AT [facility] LATANOPROST 0 Yes [id number] INSTILL 1 [facility] 0.005 % 6-27 DROP IN ity of ophthalmic 00:00: [place] EYES [place] 00 AT [facility] LATANOPROST 0 Yes [id number] INSTILL 1 [facility] 0.005 % 6-27 DROP IN ity of ophthalmic 00:00: B[place] EYES [place] 00 AT [facility] LATANOPROST Yes [id number] INSTILL 1 [facility] 0.005 % 6-27 DROP IN ity of ophthalmic 00:00: B[place] EYES [place] 00 AT [facility] LATANOPROST 0 Yes [id number] INSTILL 1 [facility] 0.005 % 6-27 DROP IN ity of ophthalmic 00:00: BOTH EYES [place] 00 AT [facility] LATANOPROST 0 Yes [id number] INSTILL 1 [facility] 0.005 % 6-27 DROP IN ity of ophthalmic 00:00: BOTH EYES [place] 00 AT [facility] LATANOPROST 0 Yes [id number] INSTILL 1 [facility] 0.005 % 6-27 DROP IN ity of ophthalmic 00:00: BOTH EYES [place] 00 AT [facility] LATANOPROST 0 Yes [id number] INSTILL 1 [facility] 0.005 % 6-27 DROP IN ity of ophthalmic 00:00: BOTH EYES [place] 00 AT [facility] LATANOPROST 0 Yes [id number] INSTILL 1 [facility] 0.005 % 6-27 DROP IN ity of ophthalmic 00:00: BOTH EYES [place] 00 AT [facility] LATANOPROST 0 Yes [id number] INSTILL 1 [facility] 0.005 % 6-27 DROP IN ity of ophthalmic 00:00: BOTH EYES [place] 00 AT [facility] LATANOPROST 0 Yes [id number] INSTILL 1 [facility] 0.005 % 6-27 DROP IN ity of ophthalmic 00:00: BOTH EYES [place] 00 AT [facility] LATANOPROST 0 Yes [id number] INSTILL 1 [facility] 0.005 % 6-27 DROP IN ity of ophthalmic 00:00: BOTH EYES [place] 00 AT [facility] LATANOPROST 0 Yes [id number] INSTILL 1 [facility] 0.005 % 6-27 DROP IN ity of ophthalmic 00:00: BOTH EYES [place] 00 AT [facility] LATANOPROST 0 Yes [id number] INSTILL 1 [facility] 0.005 % 6-27 DROP IN ity of ophthalmic 00:00: BOTH EYES [place] 00 AT [facility] LATANOPROST 0 Yes [id number] INSTILL 1 [facility] 0.005 % 6-27 DROP IN ity of ophthalmic 00:00: BOTH EYES [place] 00 AT [facility] LATANOPROST 0 Yes [id number] INSTILL 1 [facility] 0.005 % 6-27 DROP IN ity of ophthalmic 00:00: B[place] EYES [place] 00 AT [facility] LATANOPROST 0 Yes [id number] INSTILL 1 [facility] 0.005 % 6-27 DROP IN ity of ophthalmic 00:00: BOTH EYES [place] 00 AT [facility] LATANOPROST 0 Yes [id number] INSTILL 1 [facility] 0.005 % 6-27 DROP IN [facility]y of ophthalmic 00:00: B[place] EYES [place] 00 AT [facility] LATANOPROST 0 Yes [id number] INSTILL 1 [facility] 0.005 % 6-27 DROP IN ity of ophthalmic 00:00: [place] EYES [place] drops 00 AT [facility] LATANOPROST 0 Yes [id number] INSTILL 1 [facility] 0.005 % 6-27 DROP IN ity of ophthalmic 00:00: [place] 00 AT [facility] LATANOPROST 0 Yes [id number] INSTILL 1 [facility] 0.005 % 6-27 DROP IN ity of ophthalmic 00:00: [place] 00 AT [facility] LATANOPROST 0 Yes [id number] INSTILL 1 [facility] 0.005 % 6-27 DROP IN ity of ophthalmic 00:00: [place] 00 AT [facility] LATANOPROST 0 Yes [id number] INSTILL 1 [facility] 0.005 % 6-27 DROP IN ity of ophthalmic 00:00: [place] 00 AT [facility] LATANOPROST 0 2022- No [id number] INSTILL 1 [facility] 0.005 % 6-27 02-20 DROP IN ity of ophthalmic 00:00: 00:00 BOTH EYES [place] drops 00 :00 AT [facility] LATANOPROST 2022- No [id number] INSTILL 1 [facility] 0.005 % 6-27 02-20 DROP IN ity of ophthalmic 00:00: 00:00 BOTH EYES [place] drops 00 :00 AT BED[facility] LATANOPROST 2022- No [id number] INSTILL 1 [facility] 0.005 % 6-27 02-20 DROP IN ity of ophthalmic 00:00: [facility]:[place] [facility] No [id number] INSTILL 1 [facility] 0.005 % 6-27 02-20 DROP IN ity of ophthalmic 00:00: 00:00 BOTH EYES [place] drops 00 :00 AT [facility] semaglutide Yes [id number] 7mg Take 7 mg [facility] (RYBELSUS) 5-11 by mouth ity o f 7 mg Tab 00:00: daily. [place] [facility] semaglutide Yes [id number] 7mg Take 7 mg [facility] (RYBELSUS) 5-11 by mouth ity o f 7 mg Tab 00:00: daily. [place] [facility] semaglutide Yes [id number] 7mg Take 7 mg [facility] (RYBELSUS) 5-11 by mouth ity o f 7 mg Tab 00:00: daily. [place] [facility] semaglutide Yes [id number] 7mg Take 7 mg [facility] (RYBELSUS) 5-11 by mouth ity o f 7 mg Tab 00:00: daily. [place] [facility] semaglutide Yes [id number] 7mg Take 7 mg [facility] (RYBELSUS) 5-11 by mouth ity o f 7 mg Tab 00:00: daily. [place] [facility] semaglutide Yes [id number] 7mg Take 7 mg [facility] (RYBELSUS) 5-11 by mouth ity o f 7 mg Tab 00:00: daily. [place] [facility] semaglutide Yes [id number] 7mg Take 7 mg [facility] (RYBELSUS) 5-11 by mouth ity o f 7 mg Tab 00:00: daily. [place] [facility] semaglutide Yes [id number] 7mg Take 7 mg [facility] (RYBELSUS) 5-11 by mouth ity o f 7 mg Tab 00:00: daily. [facility] semaglutide Yes [id number] 7mg Take 7 mg [facility] (RYBELSUS) 5-11 by mouth ity o f 7 mg Tab 00:00: daily. [facility] semaglutide Yes [id number] 7mg Take 7 mg [facility] (RYBELSUS) 5-11 by mouth ity o f 7 mg Tab 00:00: daily. [facility] semaglutide Yes [id number] 7mg Take 7 mg [facility] (RYBELSUS) 5-11 by mouth ity o f 7 mg Tab 00:00: daily. [place] [facility] semaglutide Yes [id number] 7mg Take 7 mg [facility] (RYBELSUS) 5-11 by mouth ity o f 7 mg Tab 00:00: daily. [place] [facility] semaglutide Yes [id number] 7mg Take 7 mg [facility] (RYBELSUS) 5-11 by mouth ity o f 7 mg Tab 00:00: daily. [place] [facility] semaglutide Yes [id number] 7mg Take 7 mg [facility] (RYBELSUS) 5-11 by mouth ity o f 7 mg Tab 00:00: daily. [place] [facility] semaglutide Yes [id number] 7mg Take 7 mg [facility] (RYBELSUS) 5-11 by mouth ity o f 7 mg Tab 00:00: daily. [facility] semaglutide Yes [id number] 7mg Take 7 mg [facility] (RYBELSUS) 5-11 by mouth ity o f 7 mg Tab 00:00: daily. [place] [facility] semaglutide Yes [id number] 7mg Take 7 mg [facility] (RYBELSUS) 5-11 by mouth ity o f 7 mg Tab 00:00: daily. [place] [facility] semaglutide Yes [id number] 7mg Take 7 mg [facility] (RYBELSUS) 5-11 by mouth ity o f 7 mg Tab 00:00: daily. [facility] semaglutide Yes [id number] 7mg Take 7 mg [facility] (RYBELSUS) 5-11 by mouth ity o f 7 mg Tab 00:00: daily. [place] [facility] semaglutide Yes [id number] 7mg Take 7 mg [facility] (RYBELSUS) 5-11 by mouth ity o f 7 mg Tab 00:00: daily. [place] [facility] semaglutide Yes [id number] 7mg Take 7 mg [facility] (RYBELSUS) 5-11 by mouth ity o f 7 mg Tab 00:00: daily. [place] [facility] semaglutide Yes [id number] 7mg Take 7 mg [facility] (RYBELSUS) 5-11 by mouth ity o f 7 mg Tab 00:00: daily. [place] [facility] semaglutide 3- No [id number] 7mg Take 7 mg [facility] (RYBELSUS) -08 by mouth ity of 7 mg Tab 00:00: 00:00 daily. [place] 00 :00 [facility] semaglutide 3- No [id number] 7mg Take 7 mg [facility] (RYBELSUS) -05 27-08 by mouth ity of 7 mg Tab 00:00: 00:00 daily. [place] 00 :00 [facility] Branch semaglutide 3- No [id number] 7mg Take 7 mg [facility] (RYBELSUS) -05 27-08 by mouth ity of 7 mg Tab 00:00: 00:00 daily. [place] 00 :00 Medical [facility] semaglutide 3- No [id number] 7mg Take 7 mg [facility] (RYBELSUS) -05 27-08 by mouth ity of 7 mg Tab 00:00: 00:00 daily. [place] 00 :00 Medical Branch semaglutide 3- No [id number] 7mg Take 7 mg [facility] (RYBELSUS) -05 27-08 by mouth ity of 7 mg Tab 00:00: 00:00 daily. [place] 00 :00 Medical Branch timolol 0.5 Yes [id number] 1[drp] Place 1 [facility] % 4-14 Drop in ity of ophthalmic 00:00: both eyes [place] solution 00 every Medical morning. Branch timolol 0.5 Yes [id number] 1[drp] Place 1 [facility] % 4-14 Drop in ity of ophthalmic 00:00: both eyes [place] solution 00 every Medical morning. Branch timolol 0.5 2021-0 Yes [id number] 1[drp] Place 1 [facility] % 4-14 Drop in ity of ophthalmic 00:00: both eyes [place] solution 00 every Medical morning. Branch timolol 0.5 2-0 Yes [id number] 1[drp] Place 1 [facility] % 4-14 Drop in ity of ophthalmic 00:00: both eyes [place] solution 00 every Medical morning. Branch timolol 0.5 2021-0 Yes [id number] 1[drp] Place 1 [facility] % 4-14 Drop in ity of ophthalmic 00:00: both eyes [place] solution 00 every Medical morning. Branch timolol 0.5 2021-0 Yes [id number] 1[drp] Place 1 [facility] % 4-14 Drop in ity of ophthalmic 00:00: both eyes [place] solution 00 every Medical morning. Branch timolol 0.5 2021-0 Yes [id number] 1[drp] Place 1 [facility] % 4-14 Drop in ity of ophthalmic 00:00: both eyes [place] solution 00 every Medical morning. Branch timolol 0.5 2021-0 Yes [id number] 1[drp] Place 1 [facility] % 4-14 Drop in ity of ophthalmic 00:00: both eyes [place] solution 00 every Medical morning. Branch timolol 0.5 2021-0 Yes [id number] 1[drp] Place 1 [facility] % 4-14 Drop in ity of ophthalmic 00:00: both eyes [place] solution 00 every Medical morning. Branch timolol 0.5 2021-0 Yes [id number] 1[drp] Place 1 [facility] % 4-14 Drop in ity of ophthalmic 00:00: both eyes [place] solution 00 every Medical morning. Branch timolol 0.5 2021-0 Yes [id number] 1[drp] Place 1 [facility] % 4-14 Drop in ity of ophthalmic 00:00: both eyes [place] solution 00 every Medical morning. Branch timolol 0.5 2021-0 Yes [id number] 1[drp] Place 1 [facility] % 4-14 Drop in ity of ophthalmic 00:00: both eyes [place] solution 00 every Medical morning. Branch timolol 0.5 2021-0 Yes [id number] 1[drp] Place 1 [facility] % 4-14 Drop in ity of ophthalmic 00:00: both eyes [place] solution 00 every Medical morning. Branch timolol 0.5 2021-0 Yes [id number] 1[drp] Place 1 [facility] % 4-14 Drop in ity of ophthalmic 00:00: both eyes [place] solution 00 every Medical morning. Branch timolol 0.5 2021-0 Yes [id number] 1[drp] Place 1 [facility] % 4-14 Drop in ity of ophthalmic 00:00: both eyes [place] solution 00 every Medical morning. Branch timolol 0.5 2021-0 Yes [id number] 1[drp] Place 1 [facility] % 4-14 Drop in ity of ophthalmic 00:00: both eyes [place] solution 00 every Medical morning. Branch timolol 0.5 2021-0 Yes [id number] 1[drp] Place 1 [facility] % 4-14 Drop in ity of ophthalmic 00:00: both eyes [place] solution 00 every Medical morning. Branch timolol 0.5 2021-0 Yes [id number] 1[drp] Place 1 [facility] % 4-14 [id number] Drop in ity of ophthalmic 00:00: both eyes [place] solution 00 every Medical morning. Branch timolol 0.5 2021-0 Yes [id number] 1[drp] Place 1 [facility] % 4-14 [id number] Drop in ity of ophthalmic 00:00: both eyes [place] solution 00 every Medical morning. Branch timolol 0.5 2021-0 Yes [id number] 1[drp] Place 1 [facility] % 4-14 [id number] Drop in ity of ophthalmic 00:00: both eyes [place] solution 00 every Medical morning. Branch timolol 0.5 2021-0 Yes [id number] 1[drp] Place 1 [facility] % 4-14 Drop in ity of ophthalmic 00:00: both eyes [place] solution 00 every Medical morning. Branch timolol 0.5 2021-0 Yes [id number] 1[drp] Place 1 [facility] % 4-14 Drop in ity of ophthalmic 00:00: both eyes [place] solution 00 every Medical morning. Branch timolol 0.5 2021-0 Yes [id number] 1[drp] Place 1 [facility] % 4-14 Drop in ity of ophthalmic 00:00: both eyes [place] solution 00 every Medical morning. Branch timolol 0.5 2021-0 Yes [id number] 1[drp] Place 1 [facility] % 4-14 Drop in ity of ophthalmic 00:00: both eyes [place] solution 00 every Medical morning. Branch timolol 0.5 2021-0 Yes [id number] 1[drp] Place 1 [facility] % 4-14 Drop in ity of ophthalmic 00:00: both eyes [place] solution 00 every Medical morning. Branch timolol 0.5 2021-0 Yes [id number] 1[drp] Place 1 [facility] % 4-14 Drop in ity of ophthalmic 00:00: both eyes [place] solution 00 every Medical morning. Branch timolol 0.5 2021-0 Yes [id number] 1[drp] Place 1 [facility] % 4-14 Drop in ity of ophthalmic 00:00: both eyes [place] solution 00 every Medical morning. Branch timolol 0.5 2021-0 Yes [id number] 1[drp] Place 1 [facility] % 4-14 Drop in ity of ophthalmic 00:00: both eyes [place] solution 00 every Medical morning. Branch timolol 0.5 2021-0 Yes [id number] 1[drp] Place 1 [facility] % 4-14 Drop in ity of ophthalmic 00:00: both eyes [place] solution 00 every Medical morning. Branch timolol 0.5 2021-0 Yes [id number] 1[drp] Place 1 [facility] % 4-14 Drop in ity of ophthalmic 00:00: both eyes [place] solution 00 every Medical morning. Branch timolol 0.5 2021-0 Yes [id number] 1[drp] Place 1 [facility] % 4-14 Drop in ity of ophthalmic 00:00: both eyes [place] solution 00 every Medical morning. Branch timolol 0.5 2021-0 Yes [id number] 1[drp] Place 1 [facility] % 4-14 Drop in ity of ophthalmic 00:00: both eyes [place] solution 00 every Medical morning. Branch timolol 0.5 2021-0 Yes [id number] 1[drp] Place 1 [facility] % 4-14 Drop in ity of ophthalmic 00:00: both eyes [place] solution 00 every Medical morning. Branch timolol 0.5 2021-0 Yes [id number] 1[drp] Place 1 [facility] % 4-14 Drop in ity of ophthalmic 00:00: both eyes [place] solution 00 every Medical morning. Branch timolol 0.5 2021-0 Yes [id number] 1[drp] Place 1 [facility] % 4-14 Drop in ity of ophthalmic 00:00: both eyes [place] solution 00 every Medical morning. Branch timolol 0.5 2021-0 Yes [id number] 1[drp] Place 1 [facility] % 4-14 Drop in ity of ophthalmic 00:00: both eyes [place] solution 00 every Medical morning. Branch timolol 0.5 2021-0 Yes [id number] 1[drp] Place 1 [facility] % 4-14 Drop in ity of ophthalmic 00:00: both eyes [place] solution 00 every Medical morning. Branch timolol 0.5 2021-0 Yes [id number] 1[drp] Place 1 [facility] % 4-14 Drop in ity of ophthalmic 00:00: both eyes [place] solution 00 every Medical morning. Branch timolol 0.5 2021-0 Yes [id number] 1[drp] Place 1 [facility] % 4-14 Drop in ity of ophthalmic 00:00: both eyes [place] solution 00 every Medical morning. Branch timolol 0.5 2021-0 Yes [id number] 1[drp] Place 1 [facility] % 4-14 Drop in ity of ophthalmic 00:00: both eyes [place] solution 00 every Medical morning. Branch timolol 0.5 2021-0 Yes [id number] 1[drp] Place 1 [facility] % 4-14 Drop in ity of ophthalmic 00:00: both eyes [place] solution 00 every Medical morning. Branch timolol 0.5 2021-0 Yes [id number] 1[drp] Place 1 [facility] % 4-14 Drop in ity of ophthalmic 00:00: both eyes [place] solution 00 every Medical morning. Branch timolol 0.5 2021-0 Yes [id number] 1[drp] Place 1 [facility] % 4-14 Drop in ity of ophthalmic 00:00: both eyes [place] solution 00 every Medical morning. Branch timolol 0.5 2021-0 Yes [id number] 1[drp] Place 1 [facility] % 4-14 Drop in ity of ophthalmic 00:00: both eyes [place] solution 00 every Medical morning. Branch timolol 0.5 2021-0 Yes [id number] 1[drp] Place 1 [facility] % 4-14 Drop in ity of ophthalmic 00:00: both eyes [place] solution 00 every Medical morning. Branch timolol 0.5 2021-0 Yes [id number] 1[drp] Place 1 [facility] % 4-14 Drop in ity of ophthalmic 00:00: both eyes [place] solution 00 every Medical morning. Branch timolol 0.5 2021-0 Yes [id number] 1[drp] Place 1 [facility] % 4-14 Drop in ity of ophthalmic 00:00: both eyes [place] solution 00 every Medical morning. Branch timolol 0.5 2021-0 Yes [id number] 1[drp] Place 1 [facility] % 4-14 Drop in ity of ophthalmic 00:00: both eyes [place] solution 00 every Medical morning. Branch timolol 0.5 2021-0 Yes [id number] 1[drp] Place 1 [facility] % 4-14 Drop in ity of ophthalmic 00:00: both eyes [place] solution 00 every Medical morning. Branch timolol 0.5 2021-0 Yes [id number] 1[drp] Place 1 [facility] % 4-14 Drop in ity of ophthalmic 00:00: both eyes [place] solution 00 every Medical morning. Branch timolol 0.5 2021-0 Yes [id number] 1[drp] Place 1 [facility] % 4-14 Drop in ity of ophthalmic 00:00: both eyes [place] solution 00 every Medical morning. Branch timolol 0.5 2021-0 Yes [id number] 1[drp] Place 1 [facility] % 4-14 Drop in ity of ophthalmic 00:00: both eyes [place] solution 00 every Medical morning. Branch timolol 0.5 2021-0 Yes [id number] 1[drp] Place 1 [facility] % 4-14 Drop in ity of ophthalmic 00:00: both eyes [place] solution 00 every Medical morning. Branch timolol 0.5 2021-0 Yes [id number] 1[drp] Place 1 [facility] % 4-14 Drop in ity of ophthalmic 00:00: both eyes [place] solution 00 every Medical morning. Branch timolol 0.5 2021-0 Yes [id number] 1[drp] Place 1 [facility] % 4-14 Drop in ity of ophthalmic 00:00: both eyes [place] solution 00 every Medical morning. Branch timolol 0.5 2021-0 Yes [id number] 1[drp] Place 1 [facility] % 4-14 Drop in ity of ophthalmic 00:00: both eyes [place] solution 00 every Medical morning. Branch timolol 0.5 2021-0 Yes [id number] 1[drp] Place 1 [facility] % 4-14 Drop in ity of ophthalmic 00:00: both eyes [place] solution 00 every Medical morning. Branch timolol 0.5 2021-0 Yes [id number] 1[drp] Place 1 [facility] % 4-14 Drop in ity of ophthalmic 00:00: both eyes [place] solution 00 every Medical morning. Branch timolol 0.5 2021-0 Yes [id number] 1[drp] Place 1 [facility] % 4-14 Drop in ity of ophthalmic 00:00: both eyes [place] solution 00 every Medical morning. Branch timolol 0.5 2021-0 Yes [id number] 1[drp] Place 1 [facility] % 4-14 Drop in ity of ophthalmic 00:00: both eyes [place] solution 00 every Medical morning. Branch timolol 0.5 2021-0 Yes [id number] 1[drp] Place 1 [facility] % 4-14 Drop in ity of ophthalmic 00:00: both eyes [place] solution 00 every Medical morning. Branch timolol 0.5 2021-0 Yes [id number] 1[drp] Place 1 [facility] % 4-14 Drop in ity of ophthalmic 00:00: both eyes [place] solution 00 every Medical morning. Branch timolol 0.5 2021-0 Yes [id number] 1[drp] Place 1 [facility] % 4-14 Drop in ity of ophthalmic 00:00: both eyes [place] solution 00 every Medical morning. Branch timolol 0.5 2021-0 Yes [id number] 1[drp] Place 1 [facility] % 4-14 Drop in ity of ophthalmic 00:00: both eyes [place] solution 00 every Medical morning. Branch timolol 0.5 2021-0 Yes [id number] 1[drp] Place 1 [facility] % 4-14 Drop in ity of ophthalmic 00:00: both eyes [place] solution 00 every Medical morning. Branch timolol 0.5 2021-0 Yes [id number] 1[drp] Place 1 [facility] % 4-14 Drop in ity of ophthalmic 00:00: both eyes [place] solution 00 every Medical morning. Branch timolol 0.5 2021-0 Yes [id number] 1[drp] Place 1 [facility] % 4-14 Drop in ity of ophthalmic 00:00: both eyes [place] solution 00 every Medical morning. Branch timolol 0.5 2021-0 Yes [id number] 1[drp] Place 1 [facility] % 4-14 Drop in ity of ophthalmic 00:00: both eyes [place] solution 00 every Medical morning. Branch timolol 0.5 2021-0 Yes [id number] 1[drp] Place 1 [facility] % 4-14 Drop in ity of ophthalmic 00:00: both eyes [place] solution 00 every Medical morning. Branch timolol 0.5 2021-0 Yes [id number] 1[drp] Place 1 [facility] % 4-14 Drop in ity of ophthalmic 00:00: both eyes [place] solution 00 every Medical morning. Branch timolol 0.5 2021-0 Yes [id number] 1[drp] Place 1 [facility] % 4-14 Drop in ity of ophthalmic 00:00: both eyes [place] solution 00 every Medical morning. Branch timolol 0.5 2021-0 Yes [id number] 1[drp] Place 1 [facility] % 4-14 Drop in ity of ophthalmic 00:00: both eyes [place] solution 00 every Medical morning. Branch timolol 0.5 2021-0 Yes [id number] 1[drp] Place 1 [facility] % 4-14 Drop in ity of ophthalmic 00:00: both eyes [place] solution 00 every Medical morning. Branch timolol 0.5 2-0 Yes [id number] 1[drp] Place 1 [facility] % 4-14 Drop in ity of ophthalmic 00:00: both eyes [place] solution 00 every Medical morning. Branch timolol 0.5 2021-0 Yes [id number] 1[drp] Place 1 [facility] % 4-14 Drop in ity of ophthalmic 00:00: both eyes [place] solution 00 every Medical morning. Branch timolol 0.5 2021-0 Yes [id number] 1[drp] Place 1 [facility] % 4-14 Drop in ity of ophthalmic 00:00: both eyes [place] solution 00 every Medical morning. Branch timolol 0.5 2021-0 Yes [id number] 1[drp] Place 1 [facility] % 4-14 Drop in ity of ophthalmic 00:00: both eyes [place] solution 00 every Medical morning. Branch timolol 0.5 2021-0 Yes [id number] 1[drp] Place 1 [facility] % 4-14 Drop in ity of ophthalmic 00:00: both eyes [place] solution 00 every Medical morning. Branch timolol 0.5 2021-0 Yes [id number] 1[drp] Place 1 [facility] % 4-14 Drop in ity of ophthalmic 00:00: both eyes [place] solution 00 every Medical morning. Branch timolol 0.5 2021-0 Yes [id number] 1[drp] Place 1 [facility] % 4-14 Drop in ity of ophthalmic 00:00: both eyes [place] solution 00 every Medical morning. Branch timolol 0.5 2021-0 Yes [id number] 1[drp] Place 1 [facility] % 4-14 Drop in ity of ophthalmic 00:00: both eyes [place] solution 00 every Medical morning. Branch timolol 0.5 2021-0 Yes [id number] 1[drp] Place 1 [facility] % 4-14 Drop in ity of ophthalmic 00:00: both eyes [place] solution 00 every Medical morning. Branch timolol 0.5 2021-0 Yes [id number] 1[drp] Place 1 [facility] % 4-14 Drop in ity of ophthalmic 00:00: both eyes [place] solution 00 every Medical morning. Branch timolol 0.5 2021-0 Yes [id number] 1[drp] Place 1 [facility] % 4-14 Drop in ity of ophthalmic 00:00: both eyes [place] solution 00 every Medical morning. Branch timolol 0.5 2021-0 Yes [id number] 1[drp] Place 1 [facility] % 4-14 Drop in ity of ophthalmic 00:00: both eyes [place] solution 00 every Medical morning. Branch timolol 0.5 2022-0 Yes [id number] 1[drp] Place 1 [facility] % 4-14 Drop in ity of ophthalmic 00:00: both eyes [place] solution 00 every Medical morning. Branch timolol 0.5 2022-0 Yes [id number] 1[drp] Place 1 [facility] % 4-14 Drop in ity of ophthalmic 00:00: both eyes [place] solution 00 every Medical morning. Branch timolol 0.5 2-0 Yes [id number] 1[drp] Place 1 [facility] % 4-14 Drop in ity of ophthalmic 00:00: both eyes [place] solution 00 every Medical morning. Branch timolol 0.5 2022-0 Yes [id number] 1[drp] Place 1 [facility] % 4-14 Drop in ity of ophthalmic 00:00: both eyes [place] solution 00 every Medical morning. Branch timolol 0.5 2022-0 Yes [id number] 1[drp] Place 1 [facility] % 4-14 Drop in ity of ophthalmic 00:00: both eyes [place] solution 00 every Medical morning. Branch timolol 0.5 2021-0 Yes [id number] 1[drp] Place 1 [facility] % 4-14 Drop in ity of ophthalmic 00:00: both eyes [place] solution 00 every Medical morning. Branch timolol 0.5 2-0 Yes [id number] 1[drp] Place 1 [facility] % 4-14 Drop in ity of ophthalmic 00:00: both eyes [place] solution 00 every Medical morning. Branch foLIC acid Yes [id number] 1mg Take 1 Univers 1 mg tablet 4-05 tablet by ity of 00:00: mouth [place] 00 daily. Medical Branch hydrOXYchlo Yes [id number] 300mg Take 1.5 [facility] roQUINE 200 4-05 tablets by it y of mg tablet 00:00: mouth [place] 00 daily. [facility] Branch foLIC acid Yes [id number] 1mg Take 1 Univers 1 mg tablet 4-05 tablet by ity of 00:00: mouth [place] 00 daily. [facility] Branch hydrOXYchlo Yes [id number] 300mg Take 1.5 [facility] roQUINE 200 4-05 tablets by it y of mg tablet 00:00: mouth [place] 00 daily. Medical Branch foLIC acid 2021-0 Yes [id number] 1mg Take 1 Univers 1 mg tablet 4-05 tablet by ity of 00:00: mouth [place] 00 daily. Medical Branch hydrOXYchlo 2-0 Yes [id number] 300mg Take 1.5 [facility] roQUINE 200 4-05 tablets by it y of mg tablet 00:00: mouth [place] 00 daily. Medical Branch foLIC acid 2021-0 Yes [id number] 1mg Take 1 [facility] 1 mg tablet 4-05 tablet by ity of 00:00: mouth [place] 00 daily. Medical Branch hydrOXYchlo 2021-0 Yes [id number] 300mg Take 1.5 [facility] roQUINE 200 4-05 tablets by it y of mg tablet 00:00: mouth [place] 00 daily. Medical Branch foLIC acid 2021-0 Yes [id number] 1mg Take 1 [facility] 1 mg tablet 4-05 tablet by ity of 00:00: mouth [place] 00 daily. Medical Branch hydrOXYchlo 2021-0 Yes [id number] 300mg Take 1.5 [facility] roQUINE 200 4-05 tablets by it y of mg tablet 00:00: mouth [place] 00 daily. Medical Branch foLIC acid 2021-0 Yes [id number] 1mg Take 1 [facility] 1 mg tablet 4-05 tablet by ity of 00:00: mouth [place] 00 daily. Medical Branch hydrOXYchlo 2021-0 Yes [id number] 300mg Take 1.5 [facility] roQUINE 200 4-05 tablets by it y of mg tablet 00:00: mouth [place] 00 daily. Medical Branch foLIC acid 2021-0 Yes [id number] 1mg Take 1 [facility] 1 mg tablet 4-05 tablet by ity of 00:00: mouth [place] 00 daily. [facility] Branch hydrOXYchlo 2021-0 Yes [id number] 300mg Take 1.5 [facility] roQUINE 200 4-05 tablets by it y of mg tablet 00:00: mouth [place] 00 daily. Medical Branch foLIC acid 2021-0 Yes [id number] 1mg Take 1 [facility] 1 mg tablet 4-05 tablet by ity of 00:00: mouth [place] 00 daily. Medical Branch foLIC acid 2021-0 Yes [id number] 1mg Take 1 [facility] 1 mg tablet 4-05 tablet by ity of 00:00: mouth [place] 00 daily. Medical Branch foLIC acid 2021-0 Yes [id number] 1mg Take 1 [facility] 1 mg tablet 4-05 tablet by ity of 00:00: mouth [place] 00 daily. Medical Branch foLIC acid 2-0 Yes [id number] 1mg Take 1 [facility] 1 mg tablet 4-05 tablet by ity of 00:00: mouth [place] 00 daily. Medical Branch foLIC acid 2-0 Yes [id number] 1mg Take 1 [facility] 1 mg tablet 4-05 tablet by ity of 00:00: mouth [place] 00 daily. Medical Branch foLIC acid 2-0 Yes [id number] 1mg Take 1 [facility] 1 mg tablet 4-05 tablet by ity of 00:00: mouth [place] 00 daily. Medical Branch foLIC acid 2-0 Yes [id number] 1mg Take 1 [facility] 1 mg tablet 4-05 tablet by ity of 00:00: mouth [place] 00 daily. Medical Branch foLIC acid 2-0 Yes [id number] 1mg Take 1 [facility] 1 mg tablet 4-05 tablet by ity of 00:00: mouth [place] 00 daily. Medical Branch foLIC acid 2-0 Yes [id number] 1mg Take 1 [facility] 1 mg tablet 4-05 tablet by ity of 00:00: mouth [place] 00 daily. Medical Branch foLIC acid 2021-0 Yes [id number] 1mg Take 1 [facility] 1 mg tablet 4-05 tablet by ity of 00:00: mouth [place] 00 daily. Medical Branch foLIC acid 2-0 Yes [id number] 1mg Take 1 [facility] 1 mg tablet 4-05 tablet by ity of 00:00: mouth [place] 00 daily. Medical Branch foLIC acid 2-0 Yes [id number] 1mg Take 1 [facility] 1 mg tablet 4-05 tablet by ity of 00:00: mouth [place] 00 daily. Medical Branch foLIC acid 2-0 Yes [id number] 1mg Take 1 [facility] 1 mg tablet 4-05 tablet by ity of 00:00: mouth [place] 00 daily. Medical Branch foLIC acid 2-0 Yes [id number] 1mg Take 1 [facility] 1 mg tablet 4-05 tablet by ity of 00:00: mouth [place] 00 daily. Medical Branch foLIC acid 2-0 Yes [id number] 1mg Take 1 [facility] 1 mg tablet 4-05 tablet by ity of 00:00: mouth [place] 00 daily. Medical Branch foLIC acid 2-0 Yes [id number] 1mg Take 1 [facility] 1 mg tablet 4-05 tablet by ity of 00:00: mouth [place] 00 daily. Medical Branch foLIC acid 2-0 Yes [id number] 1mg Take 1 [facility] 1 mg tablet 4-05 tablet by ity of 00:00: mouth [place] 00 daily. Medical Branch foLIC acid 2-0 Yes [id number] 1mg Take 1 [facility] 1 mg tablet 4-05 tablet by ity of 00:00: mouth [place] 00 daily. Medical Branch foLIC acid 2-0 Yes [id number] 1mg Take 1 [facility] 1 mg tablet 4-05 tablet by ity of 00:00: mouth [place] 00 daily. Medical Branch foLIC acid 2-0 Yes [id number] 1mg Take 1 [facility] 1 mg tablet 4-05 tablet by ity of 00:00: mouth [place] 00 daily. Medical Branch foLIC acid 2-0 Yes [id number] 1mg Take 1 [facility] 1 mg tablet 4-05 tablet by ity of 00:00: mouth [place] 00 daily. Medical Branch foLIC acid 2021-0 Yes [id number] 1mg Take 1 [facility] 1 mg tablet 4-05 tablet by [facility]y of 00:00: mouth [place] 00 daily. [facility] foLIC acid 2021-0 Yes [id number] 1mg Take 1 [facility] 1 mg tablet 4-05 tablet by ity of 00:00: mouth [place] 00 daily. [facility] foLIC acid 2021-0 Yes [id number] 1mg Take 1 [facility] 1 mg tablet 4-05 tablet by ity of 00:00: mouth [place] 00 daily. [facility] foLIC acid 2-0 Yes [id number] 1mg Take 1 [facility] 1 mg tablet 4-05 tablet by ity of 00:00: mouth [place] 00 daily. [facility] foLIC acid 2-0 Yes [id number] 1mg Take 1 [facility] 1 mg tablet 4-05 tablet by ity of 00:00: mouth [place] 00 daily. [facility] foLIC acid 2-0 Yes [id number] 1mg Take 1 [facility] 1 mg tablet 4-05 tablet by ity of 00:00: mouth [place] 00 daily. [facility] foLIC acid 2-0 Yes [id number] 1mg Take 1 [facility] 1 mg tablet 4-05 tablet by ity of 00:00: mouth [place] 00 daily. [facility] foLIC acid 2-0 Yes [id number] 1mg Take 1 [facility] 1 mg tablet 4-05 tablet by ity of 00:00: mouth [place] 00 daily. [facility] foLIC acid 2-0 Yes [id number] 1mg Take 1 [facility] 1 mg tablet 4-05 tablet by ity of 00:00: mouth [place] 00 daily. [facility] foLIC acid 2-0 Yes [id number] 1mg Take 1 [facility] 1 mg tablet 4-05 tablet by ity of 00:00: mouth [place] 00 daily. [facility] foLIC acid 2-0 Yes [id number] 1mg Take 1 [facility] 1 mg tablet 4-05 tablet by ity of 00:00: mouth [place] 00 daily. [facility] foLIC acid 2-0 Yes [id number] 1mg Take 1 [facility] 1 mg tablet 4-05 tablet by ity of 00:00: mouth [place] 00 daily. [facility] foLIC acid 2-0 Yes [id number] 1mg Take 1 [facility] 1 mg tablet 4-05 tablet by ity of 00:00: mouth [place] 00 daily. [facility] foLIC acid 2-0 Yes [id number] 1mg Take 1 [facility] 1 mg tablet 4-05 tablet by ity of 00:00: mouth [place] 00 daily. [facility] foLIC acid 2-0 Yes [id number] 1mg Take 1 [facility] 1 mg tablet 4-05 tablet by ity of 00:00: mouth [place] 00 daily. [facility] foLIC acid 2-0 Yes [id number] 1mg Take 1 [facility] 1 mg tablet 4-05 tablet by ity of 00:00: mouth [place] 00 daily. [facility] foLIC acid 2-0 Yes [id number] 1mg Take 1 [facility] 1 mg tablet 4-05 tablet by ity of 00:00: mouth [place] 00 daily. [facility] foLIC acid 2-0 Yes [id number] 1mg Take 1 [facility] 1 mg tablet 4-05 tablet by ity of 00:00: mouth [place] 00 daily. [facility] foLIC acid 2-0 Yes [id number] 1mg Take 1 [facility] 1 mg tablet 4-05 tablet by ity of 00:00: mouth [place] 00 daily. [facility] foLIC acid 2-0 Yes [id number] 1mg Take 1 [facility] 1 mg tablet 4-05 tablet by ity of 00:00: mouth [place] 00 daily. [facility] foLIC acid 2-0 Yes [id number] 1mg Take 1 [facility] 1 mg tablet 4-05 tablet by ity of 00:00: mouth [place] 00 daily. [facility] foLIC acid 2-0 Yes [id number] 1mg Take 1 [facility] 1 mg tablet 4-05 tablet by ity of 00:00: mouth [place] 00 daily. [facility] foLIC acid 2022-0 Yes [id number] 1mg Take 1 [facility] 1 mg tablet 4-05 tablet by ity of 00:00: mouth [place] 00 daily. [facility] foLIC acid 2021-0 Yes [id number] 1mg Take 1 [facility] 1 mg tablet 4-05 tablet by ity of 00:00: mouth [place] 00 daily. [facility] foLIC acid 2021-0 Yes [id number] 1mg Take 1 [facility] 1 mg tablet 4-05 tablet by ity of 00:00: mouth [place] 00 daily. [facility] foLIC acid 2021-0 Yes [id number] 1mg Take 1 [facility] 1 mg tablet 4-05 tablet by ity of 00:00: mouth [place] 00 daily. [facility] foLIC acid 2021-0 Yes [id number] 1mg Take 1 [facility] 1 mg tablet 4-05 tablet by ity of 00:00: mouth [place] 00 daily. [facility] foLIC acid 2021-0 Yes [id number] 1mg Take 1 [facility] 1 mg tablet 4-05 tablet by ity of 00:00: mouth [place] 00 daily. [facility] foLIC acid 2021-0 Yes [id number] 1mg Take 1 [facility] 1 mg tablet 4-05 tablet by ity of 00:00: mouth [place] 00 daily. [facility] foLIC acid 2021-0 Yes [id number] 1mg Take 1 [facility] 1 mg tablet 4-05 tablet by ity of 00:00: mouth [place] 00 daily. [facility] foLIC acid 2021-0 3- No [id number] 1mg Take 1 [facility] 1 mg tablet 4-05 04-19 tablet by it y of 00:00: 00:00 mouth [place] 00 :00 daily. [facility] hydrOXYchlo 2021-0 2021- No [id number] 300mg Take 1.5 [facility] roQUINE 200 4-05 11-22 tablets by i ty of mg tablet 00:00: 00:00 mouth [place] 00 :00 daily. [facility] methylPREDN Yes Take by [facility] vers ISolone 3-15 mouth ity of (MEDROL, 00:00: SEE-INSTRU [place],) 4 mg 00 CTIONS. Medica l tablets Take as Branch directed on package methylPREDN Yes Take by [facility] vers ISolone 3-15 mouth ity of (MEDROL, 00:00: SEE-INSTRU [place],) 4 mg 00 CTIONS. Medica l tablets Take as Branch directed on package methylPREDN 2022-0 Yes Take by [facility] vers ISolone 3-15 mouth ity of (MEDROL, 00:00: SEE-INSTRU [place],) 4 mg 00 CTIONS. Medica l tablets Take as Branch directed on package methylPREDN 2022-0 Yes Take by [facility] vers ISolone 3-15 mouth ity of (MEDROL, 00:00: SEE-INSTRU [place],) 4 mg 00 CTIONS. Medica l tablets Take as Branch directed on package methylPREDN 2022-0 Yes Take by [facility] vers ISolone 3-15 mouth ity of (MEDROL, 00:00: SEE-INSTRU [place],) 4 mg 00 CTIONS. Medica l tablets Take as Branch directed on package methylPREDN 2022-0 Yes Take by [facility] vers ISolone 3-15 mouth ity of (MEDROL, 00:00: SEE-INSTRU [place],) 4 mg 00 CTIONS. Medica l tablets Take as Branch directed on package methylPREDN 2022-0 Yes Take by [facility] vers ISolone 3-15 mouth ity of (MEDROL, 00:00: SEE-INSTRU [place],) 4 mg 00 CTIONS. Medica l tablets Take as Branch directed on package methylPREDN 2022-0 Yes Take by [facility] vers ISolone 3-15 mouth ity of (MEDROL, 00:00: SEE-INSTRU [place],) 4 mg 00 CTIONS. Medica l tablets Take as Branch directed on package methylPREDN 2022-0 Yes Take by [facility] vers ISolone 3-15 mouth ity of (MEDROL, 00:00: SEE-INSTRU [place],) 4 mg 00 CTIONS. Medica l tablets Take as Branch directed on package methylPREDN 2022-0 Yes Take by [facility] vers ISolone 3-15 mouth ity of (MEDROL, 00:00: SEE-INSTRU [place],) 4 mg 00 CTIONS. Medica l tablets Take as Branch directed on package methylPREDN 2022-0 Yes Take by [facility] vers ISolone 3-15 mouth ity of (MEDROL, 00:00: SEE-INSTRU [place],) 4 mg 00 CTIONS. Medica l tablets Take as Branch directed on package methylPREDN 2022-0 Yes Take by [facility] vers ISolone 3-15 mouth ity of (MEDROL, 00:00: SEE-INSTRU [place],) 4 mg 00 CTIONS. Medica l tablets Take as Branch directed on package methylPREDN 2022-0 Yes Take by [facility] vers ISolone 3-15 mouth ity of (MEDROL, 00:00: SEE-INSTRU [place],) 4 mg 00 CTIONS. Medica l tablets Take as Branch directed on package methylPREDN 2022-0 Yes Take by [facility] vers ISolone 3-15 mouth ity of (MEDROL, 00:00: SEE-INSTRU [place],) 4 mg 00 CTIONS. Medica l tablets Take as Branch directed on package methylPREDN 2022-0 Yes Take by [facility] vers ISolone 3-15 mouth ity of (MEDROL, 00:00: SEE-INSTRU [place],) 4 mg 00 CTIONS. Medica l tablets Take as Branch directed on package methylPREDN 2022-0 Yes Take by [facility] vers ISolone 3-15 mouth ity of (MEDROL, 00:00: SEE-INSTRU [place],) 4 mg 00 CTIONS. Medica l tablets Take as Branch directed on package methylPREDN 2022-0 Yes Take by [facility] vers ISolone 3-15 mouth ity of (MEDROL, 00:00: SEE-INSTRU [place] [facility],) 4 mg 00 CTIONS. Medica l tablets Take as Branch directed on package methylPREDN 2022-0 Yes Take by [facility] vers ISolone 3-15 mouth ity of (MEDROL, 00:00: SEE-INSTRU [place],) 4 mg 00 CTIONS. Medica l tablets Take as Branch directed on package methylPREDN 2022-0 Yes Take by [facility] vers ISolone 3-15 mouth ity of (MEDROL, 00:00: SEE-INSTRU [place],) 4 mg 00 CTIONS. Medica l tablets Take as Branch directed on package methylPREDN 2022-0 Yes Take by [facility] vers ISolone 3-15 mouth ity of (MEDROL, 00:00: SEE-INSTRU [place],) 4 mg 00 CTIONS. Medica l tablets Take as Branch directed on package methylPREDN 2022-0 Yes Take by [facility] vers ISolone 3-15 mouth ity of (MEDROL, 00:00: SEE-INSTRU [place],) 4 mg 00 CTIONS. Medica l tablets Take as Branch directed on package methylPREDN 2022-0 Yes Take by [facility] vers ISolone 3-15 mouth ity of (MEDROL, 00:00: SEE-INSTRU [place],) 4 mg 00 CTIONS. Medica l tablets Take as Branch directed on package methylPREDN 2022-0 Yes Take by [facility] vers ISolone 3-15 mouth ity of (MEDROL, 00:00: SEE-INSTRU [place],) 4 mg 00 CTIONS. Medica l tablets Take as Branch directed on package methylPREDN 2022-0 Yes Take by [facility] vers ISolone 3-15 mouth ity of (MEDROL, 00:00: SEE-INSTRU [place],) 4 mg 00 CTIONS. Medica l tablets Take as Branch directed on package methylPREDN 2022-0 Yes Take by [facility] vers ISolone 3-15 mouth ity of (MEDROL, 00:00: SEE-INSTRU [place],) 4 mg 00 CTIONS. Medica l tablets Take as Branch directed on package methylPREDN 2022-0 Yes Take by [facility] vers ISolone 3-15 mouth ity of (MEDROL, 00:00: SEE-INSTRU [place],) 4 mg 00 CTIONS. Medica l tablets Take as Branch directed on package methylPREDN 2022-0 Yes Take by [facility] vers ISolone 3-15 mouth ity of (MEDROL, 00:00: SEE-INSTRU [place],) 4 mg 00 CTIONS. Medica l tablets Take as Branch directed on package methylPREDN 2022-0 Yes Take by [facility] vers ISolone 3-15 mouth ity of (MEDROL, 00:00: SEE-INSTRU [place],) 4 mg 00 CTIONS. Medica l tablets Take as Branch directed on package methylPREDN 2022-0 Yes Take by [facility] vers ISolone 3-15 mouth ity of (MEDROL, 00:00: SEE-INSTRU [place],) 4 mg 00 CTIONS. Medica l tablets Take as Branch directed on package methylPREDN 2022-0 Yes Take by [facility] vers ISolone 3-15 mouth ity of (MEDROL, 00:00: SEE-INSTRU [place],) 4 mg 00 CTIONS. Medica l tablets Take as Branch directed on package methylPREDN 2022-0 Yes Take by [facility] vers ISolone 3-15 mouth ity of (MEDROL, 00:00: SEE-INSTRU [place],) 4 mg 00 CTIONS. Medica l tablets Take as Branch directed on package methylPREDN 2022-0 Yes Take by [facility] vers ISolone 3-15 mouth ity of (MEDROL, 00:00: SEE-INSTRU [place],) 4 mg 00 CTIONS. Medica l tablets Take as Branch directed on package methylPREDN 2022-0 Yes Take by [facility] vers ISolone 3-15 mouth ity of (MEDROL, 00:00: SEE-INSTRU [place],) 4 mg 00 CTIONS. Medica l tablets Take as Branch directed on package methylPREDN 2022-0 Yes Take by [facility] vers ISolone 3-15 mouth ity of (MEDROL, 00:00: SEE-INSTRU [place],) 4 mg 00 CTIONS. Medica l tablets Take as Branch directed on package methylPREDN 2022-0 Yes Take by [facility] vers ISolone 3-15 mouth ity of (MEDROL, 00:00: SEE-INSTRU [place],) 4 mg 00 CTIONS. Medica l tablets Take as Branch directed on package methylPREDN 2022-0 Yes Take by [facility] vers ISolone 3-15 mouth ity of (MEDROL, 00:00: SEE-INSTRU [place],) 4 mg 00 CTIONS. Medica l tablets Take as Branch directed on package methylPREDN 2022-0 Yes Take by [facility] vers ISolone 3-15 mouth ity of (MEDROL, 00:00: SEE-INSTRU [place],) 4 mg 00 CTIONS. Medica l tablets Take as Branch directed on package methylPREDN 2022-0 Yes Take by [facility] vers ISolone 3-15 mouth ity of (MEDROL, 00:00: SEE-INSTRU [place],) 4 mg 00 CTIONS. Medica l tablets Take as Branch directed on package methylPREDN 2022-0 Yes Take by [facility] vers ISolone 3-15 mouth ity of (MEDROL, 00:00: SEE-INSTRU [place],) 4 mg 00 CTIONS. Medica l tablets Take as Branch directed on package methylPREDN 2022-0 Yes Take by Uni vers ISolone 3-15 mouth ity of (MEDROL, 00:00: SEE-INSTRU [place],) 4 mg 00 CTIONS. Medica l tablets Take as Branch directed on package methylPREDN 2022-0 Yes Take by [facility] vers ISolone 3-15 mouth ity of (MEDROL, 00:00: SEE-INSTRU [place],) 4 mg 00 CTIONS. Medica l tablets Take as Branch directed on package methylPREDN 2022-0 Yes Take by [facility] vers ISolone 3-15 mouth ity of (MEDROL, 00:00: SEE-INSTRU [place],) 4 mg 00 CTIONS. Medica l tablets Take as Branch directed on package methylPREDN 2022-0 Yes Take by [facility] vers ISolone 3-15 mouth ity of (MEDROL, 00:00: SEE-INSTRU [place],) 4 mg 00 CTIONS. Medica l tablets Take as Branch directed on package methylPREDN 2022-0 Yes Take by [facility] vers ISolone 3-15 mouth ity of (MEDROL, 00:00: SEE-INSTRU [place],) 4 mg 00 CTIONS. Medica l tablets Take as Branch directed on package methylPREDN 2022-0 Yes Take by [facility] vers ISolone 3-15 mouth ity of (MEDROL, 00:00: SEE-INSTRU [place] [facility],) 4 mg 00 CTIONS. Medica l tablets Take as Branch directed on package methylPREDN 2022-0 Yes Take by [facility] vers ISolone 3-15 mouth ity of (MEDROL, 00:00: SEE-INSTRU [place],) 4 mg 00 CTIONS. Medica l tablets Take as Branch directed on package methylPREDN 2022-0 Yes Take by Uni vers ISolone 3-15 mouth ity of (MEDROL, 00:00: SEE-INSTRU [place],) 4 mg 00 CTIONS. Medica l tablets Take as Branch directed on package methylPREDN 2022-0 Yes Take by [facility] vers ISolone 3-15 mouth ity of (MEDROL, 00:00: SEE-INSTRU [place],) 4 mg 00 CTIONS. Medica l tablets Take as Branch directed on package methylPREDN 2022-0 Yes Take by [facility] vers ISolone 3-15 mouth ity of (MEDROL, 00:00: SEE-INSTRU [place],) 4 mg 00 CTIONS. Medica l tablets Take as Branch directed on package methylPREDN 2022-0 Yes Take by Uni vers ISolone 3-15 mouth ity of (MEDROL, 00:00: SEE-INSTRU [place],) 4 mg 00 CTIONS. Medica l tablets Take as Branch directed on package methylPREDN 2022-0 Yes Take by [facility] vers ISolone 3-15 mouth ity of (MEDROL, 00:00: SEE-INSTRU [place],) 4 mg 00 CTIONS. Medica l tablets Take as Branch directed on package methylPREDN 2022-0 Yes Take by Uni vers ISolone 3-15 mouth ity of (MEDROL, 00:00: SEE-INSTRU [place],) 4 mg 00 CTIONS. Medica l tablets Take as Branch directed on package methylPREDN 2022-0 Yes Take by Un violeta ISolone 3-15 mouth ity of (MEDROL, 00:00: SEE-INSTRU [place]UNG,) 4 mg 00 CTIONS. Medica l tablets Take as Branch directed on package methylPREDN 2022-0 Yes Take by Uni vers ISolone 3-15 mouth ity of (MEDROL, 00:00: SEE-INSTRU [place] [facility],) 4 mg 00 CTIONS. Medica l tablets Take as Branch directed on package methylPREDN 2022-0 Yes Take by [facility] vers ISolone 3-15 mouth ity of (MEDROL, 00:00: SEE-INSTRU [place] [facility]UNG,) 4 mg 00 CTIONS. Medica l tablets Take as Branch directed on package methylPREDN 2022-0 Yes Take by Uni vers ISolone 3-15 mouth ity of (MEDROL, 00:00: SEE-INSTRU [place] [facility]UNG,) 4 mg 00 CTIONS. Medica l tablets Take as Branch directed on package methylPREDN 2022-0 Yes Take by Uni vers ISolone 3-15 mouth ity of (MEDROL, 00:00: SEE-INSTRU [place]UNG,) 4 mg 00 CTIONS. Medica l tablets Take as Branch directed on package methylPREDN 2022-0 Yes Take by [facility] vers ISolone 3-15 mouth ity of (MEDROL, 00:00: SEE-INSTRU [place],) 4 mg 00 CTIONS. Medica l tablets Take as Branch directed on package methylPREDN 2022-0 Yes Take by Uni vers ISolone 3-15 mouth ity of (MEDROL, 00:00: SEE-INSTRU [place],) 4 mg 00 CTIONS. Medica l tablets Take as Branch directed on package methylPREDN 2022-0 Yes Take by [facility] vers ISolone 3-15 mouth ity of (MEDROL, 00:00: SEE-INSTRU [place],) 4 mg 00 CTIONS. Medica l tablets Take as Branch directed on package methylPREDN 2022-0 Yes Take by Uni vers ISolone 3-15 mouth ity of (MEDROL, 00:00: SEE-INSTRU [place],) 4 mg 00 CTIONS. Medica l tablets Take as Branch directed on package methylPREDN 2022-0 Yes Take by Uni vers ISolone 3-15 mouth ity of (MEDROL, 00:00: SEE-INSTRU [place],) 4 mg 00 CTIONS. Medica l tablets Take as Branch directed on package methylPREDN 2022-0 Yes Take by Uni vers ISolone 3-15 mouth ity of (MEDROL, 00:00: SEE-INSTRU [place],) 4 mg 00 CTIONS. Medica l tablets Take as Branch directed on package methylPREDN 2022-0 Yes Take by Uni vers ISolone 3-15 mouth ity of (MEDROL, 00:00: SEE-INSTRU [place],) 4 mg 00 CTIONS. Medica l tablets Take as Branch directed on package methylPREDN 2022-0 Yes Take by Uni vers ISolone 3-15 mouth ity of (MEDROL, 00:00: SEE-INSTRU [place],) 4 mg 00 CTIONS. Medica l tablets Take as Branch directed on package methylPREDN 2022-0 Yes Take by Uni vers ISolone 3-15 mouth ity of (MEDROL, 00:00: SEE-INSTRU [place] [facility]G,) 4 mg 00 CTIONS. Medica l tablets Take as Branch directed on package methylPREDN 2022-0 Yes Take by [facility] vers ISolone 3-15 mouth ity of (MEDROL, 00:00: SEE-INSTRU [place],) 4 mg 00 CTIONS. Medica l tablets Take as Branch directed on package methylPREDN 2022-0 Yes Take by [facility] vers ISolone 3-15 mouth ity of (MEDROL, 00:00: SEE-INSTRU [place] [facility],) 4 mg 00 CTIONS. Medica l tablets Take as Branch directed on package methylPREDN 2022-0 Yes Take by [facility] vers ISolone 3-15 mouth ity of (MEDROL, 00:00: SEE-INSTRU [place] [facility]G,) 4 mg 00 CTIONS. Medica l tablets Take as Branch directed on package methylPREDN 2022-0 Yes Take by [facility] vers ISolone 3-15 mouth ity of (MEDROL, 00:00: SEE-INSTRU [place],) 4 mg 00 CTIONS. Medica l tablets Take as Branch directed on package methylPREDN 2022-0 Yes Take by [facility] vers ISolone 3-15 mouth ity of (MEDROL, 00:00: SEE-INSTRU [place],) 4 mg 00 CTIONS. Medica l tablets Take as Branch directed on package methylPREDN 2022-0 Yes Take by [facility] vers ISolone 3-15 mouth ity of (MEDROL, 00:00: SEE-INSTRU [place] [facility],) 4 mg 00 CTIONS. Medica l tablets Take as Branch directed on package methylPREDN 2022-0 Yes Take by [facility] vers ISolone 3-15 mouth ity of (MEDROL, 00:00: SEE-INSTRU [place],) 4 mg 00 CTIONS. Medica l tablets Take as Branch directed on package methylPREDN 2022-0 Yes Take by [facility] vers ISolone 3-15 mouth ity of (MEDROL, 00:00: SEE-INSTRU [place] [facility],) 4 mg 00 CTIONS. Medica l tablets Take as Branch directed on package methylPREDN 2022-0 Yes Take by [facility] vers ISolone 3-15 mouth ity of (MEDROL, 00:00: SEE-INSTRU [place] [facility],) 4 mg 00 CTIONS. Medica l tablets Take as Branch directed on package methylPREDN 2022-0 Yes Take by Uni vers ISolone 3-15 mouth ity of (MEDROL, 00:00: SEE-INSTRU [place] [facility],) 4 mg 00 CTIONS. Medica l tablets Take as Branch directed on package methylPREDN 2022-0 Yes Take by Uni vers ISolone 3-15 mouth ity of (MEDROL, 00:00: SEE-INSTRU [place],) 4 mg 00 CTIONS. Medica l tablets Take as Branch directed on package methylPREDN 2022-0 Yes Take by Uni vers ISolone 3-15 mouth ity of (MEDROL, 00:00: SEE-INSTRU [place],) 4 mg 00 CTIONS. Medica l tablets Take as Branch directed on package methylPREDN 2022-0 Yes Take by Uni vers ISolone 3-15 mouth ity of (MEDROL, 00:00: SEE-INSTRU [place] [facility] [place],) 4 mg 00 CTIONS. Medica l tablets Take as Branch directed on package methylPREDN 2022-0 Yes Take by Uni vers ISolone 3-15 mouth ity of (MEDROL, 00:00: SEE-INSTRU [place],) 4 mg 00 CTIONS. Medica l tablets Take as Branch directed on package methylPREDN 2022-0 Yes Take by Uni vers ISolone 3-15 mouth ity of (MEDROL, 00:00: SEE-INSTRU [place] [facility]G,) 4 mg 00 CTIONS. Medica l tablets Take as Branch directed on package methylPREDN 2022-0 Yes Take by Uni vers ISolone 3-15 mouth ity of (MEDROL, 00:00: SEE-INSTRU [place] [facility],) 4 mg 00 CTIONS. Medica l tablets Take as Branch directed on package methylPREDN 2022-0 Yes Take by Uni vers ISolone 3-15 mouth ity of (MEDROL, 00:00: SEE-INSTRU [place] [facility] [place],) 4 mg 00 CTIONS. Medica l tablets Take as Branch directed on package methylPREDN 2022-0 Yes Take by [facility] vers ISolone 3-15 mouth ity of (MEDROL, 00:00: SEE-INSTRU [place] [facility] [place],) 4 mg 00 CTIONS. Medica l tablets Take as Branch directed on package methylPREDN 2022-0 Yes Take by Uni vers ISolone 3-15 mouth ity of (MEDROL, 00:00: SEE-INSTRU [place] [facility],) 4 mg 00 CTIONS. Medica l tablets Take as Branch directed on package methylPREDN 2022-0 Yes Take by Uni vers ISolone 3-15 mouth ity of (MEDROL, 00:00: SEE-INSTRU [place] [facility] [place],) 4 mg 00 CTIONS. Medica l tablets Take as Branch directed on package methylPREDN 2022-0 Yes Take by [facility] vers ISolone 3-15 mouth ity of (MEDROL, 00:00: SEE-INSTRU [place] [facility],) 4 mg 00 CTIONS. Medica l tablets Take as Branch directed on package methylPREDN 2022-0 Yes Take by Uni vers ISolone 3-15 mouth ity of (MEDROL, 00:00: SEE-INSTRU [place] [facility] [place],) 4 mg 00 CTIONS. Medica l tablets Take as Branch directed on package methylPREDN 2022-0 Yes Take by [facility] vers ISolone 3-15 mouth ity of (MEDROL, 00:00: SEE-INSTRU [place] [facility] [place],) 4 mg 00 CTIONS. Medica l tablets Take as Branch directed on package methylPREDN 2022-0 Yes Take by Uni vers ISolone 3-15 mouth ity of (MEDROL, 00:00: SEE-INSTRU [place] [facility] [place],) 4 mg 00 CTIONS. Medica l tablets Take as Branch directed on package methylPREDN 2022-0 Yes Take by [facility] vers ISolone 3-15 mouth ity of (MEDROL, 00:00: SEE-INSTRU [place] [facility] [place],) 4 mg 00 CTIONS. Medica l tablets Take as Branch directed on package methylPREDN 2022-0 Yes Take by Uni vers ISolone 3-15 mouth ity of (MEDROL, 00:00: SEE-INSTRU [place],) 4 mg 00 CTIONS. Medica l tablets Take as Branch directed on package LISINOPRIL- 2022-0 Yes [id number] TAKE 1 [facility] nivers HYDROCHLORO 3-11 TABLET BY ity of THIAZIDE 00:00: MOUTH [place] 20-12.5 mg 00 EVERY DAY Medi julian per tablet Branch LISINOPRIL- 2022-0 Yes [id number] TAKE 1 U nivers HYDROCHLORO 3-11 TABLET BY ity of THIAZIDE 00:00: MOUTH [place] 20-12.5 mg 00 EVERY DAY Medi julian per tablet Branch LISINOPRIL- 2022-0 Yes [id number] TAKE 1 U nivers HYDROCHLORO 3-11 TABLET BY ity of THIAZIDE 00:00: MOUTH [place] 20-12.5 mg 00 EVERY DAY Medi julian per tablet Branch LISINOPRIL- 2021-0 Yes [id number] TAKE 1 U nivers HYDROCHLORO 3-11 TABLET BY ity of THIAZIDE 00:00: MOUTH [place] 20-12.5 mg 00 EVERY DAY Medi julian per tablet Branch LISINOPRIL- 2021-0 Yes [id number] TAKE 1 U nivers HYDROCHLORO 3-11 TABLET BY ity of THIAZIDE 00:00: MOUTH [place] 20-12.5 mg 00 EVERY DAY Medi julian per tablet Branch LISINOPRIL- 2021-0 Yes [id number] TAKE 1 U nivers HYDROCHLORO 3-11 TABLET BY ity of THIAZIDE 00:00: MOUTH [place] 20-12.5 mg 00 EVERY DAY Medi julian per tablet Branch LISINOPRIL- 0 Yes [id number] TAKE 1 U nivers HYDROCHLORO 3-11 TABLET BY ity of THIAZIDE 00:00: MOUTH [place] 20-12.5 mg 00 EVERY DAY Medi julian per tablet Branch LISINOPRIL- 0 Yes [id number] TAKE 1 U nivers HYDROCHLORO 3-11 TABLET BY ity of THIAZIDE 00:00: MOUTH [place] 20-12.5 mg 00 EVERY DAY Medi julian per tablet Branch LISINOPRIL- 0 Yes [id number] TAKE 1 U nivers HYDROCHLORO 3-11 TABLET BY ity of THIAZIDE 00:00: MOUTH [place] 20-12.5 mg 00 EVERY DAY Medi julian per tablet Branch LISINOPRIL- 0 Yes [id number] TAKE 1 U nivers HYDROCHLORO 3-11 TABLET BY ity of THIAZIDE 00:00: MOUTH [place] 20-12.5 mg 00 EVERY DAY Medi julian per tablet Branch LISINOPRIL- 2021-0 Yes [id number] TAKE 1 U nivers HYDROCHLORO 3-11 TABLET BY ity of THIAZIDE 00:00: MOUTH [place] 20-12.5 mg 00 EVERY DAY Medi julian per tablet Branch LISINOPRIL- 2021-0 Yes [id number] TAKE 1 U nivers HYDROCHLORO 3-11 TABLET BY ity of THIAZIDE 00:00: MOUTH [place] 20-12.5 mg 00 EVERY DAY Medi julian per tablet Branch LISINOPRIL- 2021-0 Yes [id number] TAKE 1 U nivers HYDROCHLORO 3-11 TABLET BY ity of THIAZIDE 00:00: MOUTH [place] 20-12.5 mg 00 EVERY DAY Medi julian per tablet Branch LISINOPRIL- 2021-0 Yes [id number] TAKE 1 U nivers HYDROCHLORO 3-11 TABLET BY ity of THIAZIDE 00:00: MOUTH [place] 20-12.5 mg 00 EVERY DAY Medi julian per tablet Branch LISINOPRIL- 2021-0 Yes [id number] TAKE 1 U nivers HYDROCHLORO 3-11 TABLET BY ity of THIAZIDE 00:00: MOUTH [place] 20-12.5 mg 00 EVERY DAY Medi julian per tablet Branch LISINOPRIL- 2021-0 Yes [id number] TAKE 1 U nivers HYDROCHLORO 3-11 TABLET BY ity of THIAZIDE 00:00: MOUTH [place] 20-12.5 mg 00 EVERY DAY Medi julian per tablet Branch LISINOPRIL- 2021-0 Yes [id number] TAKE 1 [facility] nivers HYDROCHLORO 3-11 TABLET BY ity of THIAZIDE 00:00: MOUTH [place] 20-12.5 mg 00 EVERY DAY Medi julian per tablet Branch LISINOPRIL- 0 3- No [id number] TAKE 1 [facility] HYDROCHLORO 3-11 - TABLET BY it y of THIAZIDE 00:00: 00:00 MOUTH [place] 20-12.5 mg 00 :00 EVERY DAY Medi julian per tablet Branch LISINOPRIL- 0 2023- No [id number] TAKE 1 [facility] HYDROCHLORO 3-11 - TABLET BY it y of THIAZIDE 00:00: 00:00 MOUTH [place] 20-12.5 mg 00 :00 EVERY DAY Medi julian per tablet Branch LISINOPRIL- 2021-0 2023- No [id number] TAKE 1 [facility] HYDROCHLORO 3-11 - TABLET BY it y of THIAZIDE 00:00: 00:00 MOUTH [place] 20-12.5 mg 00 :00 EVERY DAY Medi julian per tablet Branch ibuprofen 0 Yes [id number] 800mg Take 1 [facility] 800 [facility] 2-07 tablet by [facility] tablet 00:00: mouth [place] 00 every 6 [facility] (six) Branch hours as needed for Pain (scale 4-6). Diclofenac 0 Yes [id number] Apply to [facility] Sodium 2-07 area(s) 3 [facility] of (VOLTAREN) 00:00: (three) [place] 1 % gel 00 times [facility] daily as [facility] needed for Pain (scale 7-10). Apply 1 gram to affected area TID as needed ibuprofen 2021-0 Yes [id number] 800mg Take 1 [facility] 800 mg 2-07 tablet by [facility] tablet 00:00: mouth [place] 00 every 6 [facility] (six) Branch hours as needed for Pain (scale 4-6). Diclofenac 2021-0 Yes [id number] Apply to [facility] Sodium 2-07 area(s) 3 [facility] of (VOLTAREN) 00:00: (three) [place] 1 % gel 00 times [facility] daily as [facility] needed for Pain (scale 7-10). Apply 1 gram to affected area TID as needed ibuprofen 2021-0 Yes [id number] 800mg Take 1 [facility] 800 mg 2-07 tablet by [facility] tablet 00:00: mouth [place] 00 every 6 [facility] (six) Branch hours as needed for Pain (scale 4-6). Diclofenac 2021-0 Yes [id number] Apply to [facility] Sodium 2-07 area(s) 3 [facility] (VOLTAREN) 00:00: (three) [place] 1 % gel 00 times [facility] daily as [facility] needed for Pain (scale 7-10). Apply 1 gram to affected area TID as needed ibuprofen 2021-0 Yes [id number] 800mg Take 1 [facility] 800 mg 2-07 tablet by [facility] tablet 00:00: mouth [place] 00 every 6 [facility] (six) Branch hours as needed for Pain (scale 4-6). Diclofenac 2021-0 Yes [id number] Apply to [facility] Sodium 2-07 area(s) 3 [facility] of (VOLTAREN) 00:00: (three) [place] 1 % gel 00 times [facility] daily as [facility] needed for Pain (scale 7-10). Apply 1 gram to affected area TID as needed ibuprofen 2021-0 Yes [id number] 800mg Take 1 [facility] 800 mg 2-07 tablet by [facility] tablet 00:00: mouth [place] 00 every 6 [facility] (six) Branch hours as needed for Pain (scale 4-6). Diclofenac 2022-0 Yes [id number] Apply to [facility] Sodium 2-07 area(s) 3 [facility] (VOLTAREN) 00:00: (three) [place] 1 % gel 00 times [facility] daily as [facility] needed for Pain (scale 7-10). Apply 1 gram to affected area TID as needed ibuprofen 2021-0 Yes [id number] 800mg Take 1 [facility] 800 mg 2-07 tablet by [facility] tablet 00:00: mouth [place] 00 every 6 [facility] (six) Branch hours as needed for Pain (scale 4-6). Diclofenac 2021-0 Yes [id number] Apply to [facility] Sodium 2-07 area(s) 3 [facility] (VOLTAREN) 00:00: (three) [place] 1 % gel 00 times [facility] daily as [facility] needed for Pain (scale 7-10). Apply 1 gram to affected area TID as needed ibuprofen 2021-0 Yes [id number] 800mg Take 1 [facility] 800 mg 2-07 tablet by [facility] tablet 00:00: mouth [place] 00 every 6 [facility] (six) Branch hours as needed for Pain (scale 4-6). Diclofenac 2021-0 Yes [id number] Apply to [facility] Sodium 2-07 area(s) 3 [facility] (VOLTAREN) 00:00: (three) [place] 1 % gel 00 times [facility] daily as [facility] needed for Pain (scale 7-10). Apply 1 gram to affected area TID as needed ibuprofen 2021-0 Yes [id number] 800mg Take 1 [facility] 800 mg 2-07 tablet by [facility] tablet 00:00: mouth [place] 00 every 6 [facility] (six) Branch hours as needed for Pain (scale 4-6). Diclofenac 2021-0 Yes [id number] Apply to [facility] Sodium 2-07 area(s) 3 [facility] (VOLTAREN) 00:00: (three) [place] 1 % gel 00 times [facility] daily as [facility] needed for Pain (scale 7-10). Apply 1 gram to affected area TID as needed ibuprofen 2021-0 Yes [id number] 800mg Take 1 [facility] 800 mg 2-07 tablet by [facility] tablet 00:00: mouth [place] 00 every 6 [facility] (six) Branch hours as needed for Pain (scale 4-6). Diclofenac 2021-0 Yes [id number] Apply to [facility] Sodium 2-07 area(s) 3 [facility] (VOLTAREN) 00:00: (three) [place] 1 % gel 00 times [facility] daily as Branch needed for Pain (scale 7-10). Apply 1 gram to affected area TID as needed ibuprofen 2021-0 Yes [id number] 800mg Take 1 [facility] 800 mg 2-07 tablet by [facility] tablet 00:00: mouth [place] 00 every 6 [facility] (six) Branch hours as needed for Pain (scale 4-6). Diclofenac 2021-0 Yes [id number] Apply to [facility] Sodium 2-07 area(s) 3 [facility] of (VOLTAREN) 00:00: (three) [place] 1 % gel 00 times [facility] daily as [facility] needed for Pain (scale 7-10). Apply 1 gram to affected area TID as needed ibuprofen 2021-0 Yes [id number] 800mg Take 1 [facility] 800 mg 2-07 tablet by [facility] tablet 00:00: mouth [place] 00 every 6 [facility] (six) Branch hours as needed for Pain (scale 4-6). Diclofenac 2021-0 Yes [id number] Apply to [facility] Sodium 2-07 area(s) 3 [facility] of (VOLTAREN) 00:00: (three) [place] 1 % gel 00 times [facility] daily as Branch needed for Pain (scale 7-10). Apply 1 gram to affected area TID as needed ibuprofen 2021-0 Yes [id number] 800mg Take 1 [facility] 800 mg 2-07 tablet by [facility] tablet 00:00: mouth [place] 00 every 6 [facility] (six) Branch hours as needed for Pain (scale 4-6). Diclofenac 2021-0 Yes [id number] Apply to [facility] Sodium 2-07 area(s) 3 [facility] of (VOLTAREN) 00:00: (three) [place] 1 % gel 00 times [facility] daily as Branch needed for Pain (scale 7-10). Apply 1 gram to affected area TID as needed ibuprofen 2021-0 Yes [id number] 800mg Take 1 [facility] 800 mg 2-07 tablet by [facility] tablet 00:00: mouth [place] 00 every 6 [facility] (six) Branch hours as needed for Pain (scale 4-6). Diclofenac 2021-0 Yes [id number] Apply to [facility] Sodium 2-07 area(s) 3 [facility] of (VOLTAREN) 00:00: (three) [place] 1 % gel 00 times [facility] daily as Branch needed for Pain (scale 7-10). Apply 1 gram to affected area TID as needed ibuprofen 2021-0 Yes [id number] 800mg Take 1 [facility] 800 mg 2-07 tablet by [facility] tablet 00:00: mouth [place] 00 every 6 [facility] (six) Branch hours as needed for Pain (scale 4-6). Diclofenac 202-0 Yes [id number] Apply to [facility] Sodium 2-07 area(s) 3 [facility] of (VOLTAREN) 00:00: (three) [place] 1 % gel 00 times [facility] daily as Branch needed for Pain (scale 7-10). Apply 1 gram to affected area TID as needed ibuprofen 2021-0 Yes [id number] 800mg Take 1 [facility] 800 mg 2-07 tablet by [facility] tablet 00:00: mouth [place] 00 every 6 [facility] (six) Branch hours as needed for Pain (scale 4-6). Diclofenac 2021-0 Yes [id number] Apply to [facility] Sodium 2-07 area(s) 3 [facility] of (VOLTAREN) 00:00: (three) [place] 1 % gel 00 times [facility] daily as Branch needed for Pain (scale 7-10). Apply 1 gram to affected area TID as needed ibuprofen 2021-0 Yes [id number] 800mg Take 1 [facility] 800 mg 2-07 tablet by [facility] tablet 00:00: mouth [place] 00 every 6 [facility] (six) Branch hours as needed for Pain (scale 4-6). Diclofenac 2021-0 Yes [id number] Apply to [facility] Sodium 2-07 area(s) 3 [facility] of (VOLTAREN) 00:00: (three) [place] 1 % gel 00 times [facility] daily as Branch needed for Pain (scale 7-10). Apply 1 gram to affected area TID as needed ibuprofen 2021-0 Yes [id number] 800mg Take 1 [facility] 800 mg 2-07 tablet by [facility] tablet 00:00: mouth [place] 00 every 6 [facility] (six) Branch hours as needed for Pain (scale 4-6). Diclofenac 2021-0 Yes [id number] Apply to [facility] Sodium 2-07 area(s) 3 [facility] of (VOLTAREN) 00:00: (three) [place] 1 % gel 00 times [facility] daily as Branch needed for Pain (scale 7-10). Apply 1 gram to affected area TID as needed ibuprofen 2021-0 Yes [id number] 800mg Take 1 [facility] 800 mg 2-07 tablet by [facility] tablet 00:00: mouth [place] 00 every 6 [facility] (six) Branch hours as needed for Pain (scale 4-6). Diclofenac 2022-0 Yes [id number] Apply to [facility] Sodium 2-07 area(s) 3 [facility] of (VOLTAREN) 00:00: (three) [place] 1 % gel 00 times [facility] daily as Branch needed for Pain (scale 7-10). Apply 1 gram to affected area TID as needed ibuprofen 2021-0 Yes [id number] 800mg Take 1 [facility] 800 mg 2-07 tablet by [facility] tablet 00:00: mouth [place] 00 every 6 [facility] (six) Branch hours as needed for Pain (scale 4-6). Diclofenac 2021-0 Yes [id number] Apply to [facility] Sodium 2-07 area(s) 3 [facility] of (VOLTAREN) 00:00: (three) [place] 1 % gel 00 times [facility] daily as Branch needed for Pain (scale 7-10). Apply 1 gram to affected area TID as needed ibuprofen 2021-0 Yes [id number] 800mg Take 1 [facility] 800 mg 2-07 tablet by [facility] tablet 00:00: mouth [place] 00 every 6 [facility] (six) Branch hours as needed for Pain (scale 4-6). Diclofenac 2021-0 Yes [id number] Apply to [facility] Sodium 2-07 area(s) 3 [facility] of (VOLTAREN) 00:00: (three) [place] 1 % gel 00 times [facility] daily as Branch needed for Pain (scale 7-10). Apply 1 gram to affected area TID as needed ibuprofen 2021-0 Yes [id number] 800mg Take 1 [facility] 800 mg 2-07 tablet by [facility] tablet 00:00: mouth [place] 00 every 6 [facility] (six) Branch hours as needed for Pain (scale 4-6). Diclofenac 2021-0 Yes [id number] Apply to [facility] Sodium 2-07 area(s) 3 [facility] of (VOLTAREN) 00:00: (three) [place] 1 % gel 00 times [facility] daily as Branch needed for Pain (scale 7-10). Apply 1 gram to affected area TID as needed ibuprofen 2021-0 Yes [id number] 800mg Take 1 [facility] 800 mg 2-07 tablet by [facility] tablet 00:00: mouth [place] 00 every 6 [facility] (six) Branch hours as needed for Pain (scale 4-6). Diclofenac 2021-0 Yes [id number] Apply to [facility] Sodium 2-07 area(s) 3 [facility] of (VOLTAREN) 00:00: (three) [place] 1 % gel 00 times [facility] daily as Branch needed for Pain (scale 7-10). Apply 1 gram to affected area TID as needed ibuprofen 2021-0 Yes [id number] 800mg Take 1 [facility] 800 mg 2-07 tablet by [facility] tablet 00:00: mouth [place] 00 every 6 [facility] (six) Branch hours as needed for Pain (scale 4-6). Diclofenac 2021-0 Yes [id number] Apply to [facility] Sodium 2-07 area(s) 3 [facility] of (VOLTAREN) 00:00: (three) [place] 1 % gel 00 times [facility] daily as Branch needed for Pain (scale 7-10). Apply 1 gram to affected area TID as needed ibuprofen 2021-0 Yes [id number] 800mg Take 1 [facility] 800 mg 2-07 tablet by [facility] of tablet 00:00: mouth [place] 00 every 6 [facility] (six) Branch hours as needed for Pain (scale 4-6). Diclofenac 2021-0 Yes [id number] Apply to [facility] Sodium 2-07 area(s) 3 [facility] of (VOLTAREN) 00:00: (three) [place] 1 % gel 00 times [facility] daily as Branch needed for Pain (scale 7-10). Apply 1 gram to affected area TID as needed ibuprofen 2021-0 Yes [id number] 800mg Take 1 [facility] 800 mg 2-07 tablet by [facility] of tablet 00:00: mouth [place] 00 every 6 [facility] (six) Branch hours as needed for Pain (scale 4-6). Diclofenac 2021-0 Yes [id number] Apply to [facility] Sodium 2-07 area(s) 3 [facility] of (VOLTAREN) 00:00: (three) [place] 1 % gel 00 times [facility] daily as Branch needed for Pain (scale 7-10). Apply 1 gram to affected area TID as needed ibuprofen 2021-0 Yes [id number] 800mg Take 1 [facility] 800 mg 2-07 tablet by [facility] of tablet 00:00: mouth [place] 00 every 6 [facility] (six) Branch hours as needed for Pain (scale 4-6). Diclofenac 202-0 Yes [id number] Apply to [facility] Sodium 2-07 area(s) 3 [facility] of (VOLTAREN) 00:00: (three) [place] 1 % gel 00 times [facility] daily as Branch needed for Pain (scale 7-10). Apply 1 gram to affected area TID as needed ibuprofen 202-0 Yes [id number] 800mg Take 1 [facility] 800 mg 2-07 tablet by [facility] of tablet 00:00: mouth [place] 00 every 6 [facility] (six) Branch hours as needed for Pain (scale 4-6). Diclofenac 2021-0 Yes [id number] Apply to [facility] Sodium 2-07 area(s) 3 [facility] of (VOLTAREN) 00:00: (three) [place] 1 % gel 00 times [facility] daily as Branch needed for Pain (scale 7-10). Apply 1 gram to affected area TID as needed ibuprofen 2021-0 Yes [id number] 800mg Take 1 [facility] 800 mg 2-07 tablet by [facility] of tablet 00:00: mouth [place] 00 every 6 Medical (six) Branch hours as needed for Pain (scale 4-6). Diclofenac 2021-0 Yes [id number] Apply to [facility] Sodium 2-07 area(s) 3 [facility] of (VOLTAREN) 00:00: (three) [place] 1 % gel 00 times [facility] daily as Branch needed for Pain (scale 7-10). Apply 1 gram to affected area TID as needed ibuprofen 2021-0 Yes [id number] 800mg Take 1 [facility] 800 mg 2-07 tablet by [facility] of tablet 00:00: mouth [place] 00 every 6 [facility] (six) Branch hours as needed for Pain (scale 4-6). Diclofenac 2-0 Yes [id number] Apply to [facility] Sodium 2-07 area(s) 3 [facility] of (VOLTAREN) 00:00: (three) [place] 1 % gel 00 times [facility] daily as Branch needed for Pain (scale 7-10). Apply 1 gram to affected area TID as needed ibuprofen 2022-0 Yes [id number] 800mg Take 1 [facility] 800 mg 2-07 tablet by [facility] of tablet 00:00: mouth [place] 00 every 6 Medical (six) Branch hours as needed for Pain (scale 4-6). Diclofenac 2022-0 Yes [id number] Apply to [facility] Sodium 2-07 area(s) 3 [facility] of (VOLTAREN) 00:00: (three) [place] 1 % gel 00 times [facility] daily as Branch needed for Pain (scale 7-10). Apply 1 gram to affected area TID as needed ibuprofen 2021-0 Yes [id number] 800mg Take 1 [facility] 800 mg 2-07 tablet by [facility] of tablet 00:00: mouth [place] 00 every 6 Medical (six) Branch hours as needed for Pain (scale 4-6). Diclofenac 2021-0 Yes [id number] Apply to [facility] Sodium 2-07 area(s) 3 [facility] of (VOLTAREN) 00:00: (three) [place] 1 % gel 00 times [facility] daily as Branch needed for Pain (scale 7-10). Apply 1 gram to affected area TID as needed ibuprofen 2021-0 Yes [id number] 800mg Take 1 [facility] 800 mg 2-07 tablet by [facility] of tablet 00:00: mouth [place] 00 every 6 [facility] (six) Branch hours as needed for Pain (scale 4-6). Diclofenac 2021-0 Yes [id number] Apply to [facility] Sodium 2-07 area(s) 3 [facility] of (VOLTAREN) 00:00: (three) [place] 1 % gel 00 times [facility] daily as Branch needed for Pain (scale 7-10). Apply 1 gram to affected area TID as needed ibuprofen 2021-0 Yes [id number] 800mg Take 1 [facility] 800 mg 2-07 tablet by [facility] of tablet 00:00: mouth [place] 00 every 6 Medical (six) Branch hours as needed for Pain (scale 4-6). Diclofenac 2021-0 Yes [id number] Apply to [facility] Sodium 2-07 area(s) 3 [facility] of (VOLTAREN) 00:00: (three) [place] 1 % gel 00 times [facility] daily as Branch needed for Pain (scale 7-10). Apply 1 gram to affected area TID as needed ibuprofen 2021-0 Yes [id number] 800mg Take 1 [facility] 800 mg 2-07 tablet by [facility] of tablet 00:00: mouth [place] 00 every 6 Medical (six) Branch hours as needed for Pain (scale 4-6). Diclofenac 2022-0 Yes [id number] Apply to [facility] Sodium 2-07 area(s) 3 [facility] of (VOLTAREN) 00:00: (three) [place] 1 % gel 00 times [facility] daily as Branch needed for Pain (scale 7-10). Apply 1 gram to affected area TID as needed ibuprofen 2022-0 Yes [id number] 800mg Take 1 [facility] 800 mg 2-07 tablet by [facility] of tablet 00:00: mouth [place] 00 every 6 Medical (six) Branch hours as needed for Pain (scale 4-6). Diclofenac 2021-0 Yes [id number] Apply to [facility] Sodium 2-07 area(s) 3 [facility] of (VOLTAREN) 00:00: (three) [place] 1 % gel 00 times [facility] daily as Branch needed for Pain (scale 7-10). Apply 1 gram to affected area TID as needed ibuprofen 2021-0 Yes [id number] 800mg Take 1 [facility] 800 mg 2-07 tablet by [facility] of tablet 00:00: mouth [place] 00 every 6 Medical (six) Branch hours as needed for Pain (scale 4-6). Diclofenac 2021-0 Yes [id number] Apply to [facility] Sodium 2-07 area(s) 3 [facility] of (VOLTAREN) 00:00: (three) [place] 1 % gel 00 times [facility] daily as Branch needed for Pain (scale 7-10). Apply 1 gram to affected area TID as needed ibuprofen 2021-0 Yes [id number] 800mg Take 1 [facility] 800 mg 2-07 tablet by [facility] of tablet 00:00: mouth [place] 00 every 6 Medical (six) Branch hours as needed for Pain (scale 4-6). Diclofenac 2021-0 Yes [id number] Apply to [facility] Sodium 2-07 area(s) 3 [facility] of (VOLTAREN) 00:00: (three) [place] 1 % gel 00 times [facility] daily as Branch needed for Pain (scale 7-10). Apply 1 gram to affected area TID as needed ibuprofen 2021-0 Yes [id number] 800mg Take 1 [facility] 800 mg 2-07 tablet by [facility] of tablet 00:00: mouth [place] 00 every 6 Medical (six) Branch hours as needed for Pain (scale 4-6). Diclofenac 2021-0 Yes [id number] Apply to [facility] Sodium 2-07 area(s) 3 [facility] of (VOLTAREN) 00:00: (three) [place] 1 % gel 00 times [facility] daily as Branch needed for Pain (scale 7-10). Apply 1 gram to affected area TID as needed ibuprofen 2021-0 Yes [id number] 800mg Take 1 [facility] 800 mg 2-07 tablet by [facility] of tablet 00:00: mouth [place] 00 every 6 Medical (six) Branch hours as needed for Pain (scale 4-6). Diclofenac 2021-0 Yes [id number] Apply to [facility] Sodium 2-07 area(s) 3 [facility] of (VOLTAREN) 00:00: (three) [place] 1 % gel 00 times [facility] daily as Branch needed for Pain (scale 7-10). Apply 1 gram to affected area TID as needed ibuprofen 2021-0 Yes [id number] 800mg Take 1 [facility] 800 mg 2-07 tablet by [facility] of tablet 00:00: mouth [place] 00 every 6 Medical (six) Branch hours as needed for Pain (scale 4-6). Diclofenac 2021-0 Yes [id number] Apply to [facility] Sodium 2-07 area(s) 3 [facility] of (VOLTAREN) 00:00: (three) [place] 1 % gel 00 times [facility] daily as Branch needed for Pain (scale 7-10). Apply 1 gram to affected area TID as needed ibuprofen 2021-0 Yes [id number] 800mg Take 1 [facility] 800 mg 2-07 tablet by [facility] of tablet 00:00: mouth [place] 00 every 6 Medical (six) Branch hours as needed for Pain (scale 4-6). Diclofenac 2021-0 Yes [id number] Apply to [facility] Sodium 2-07 area(s) 3 [facility]y of (VOLTAREN) 00:00: (three) [place] 1 % gel 00 times [facility] daily as Branch needed for Pain (scale 7-10). Apply 1 gram to affected area TID as needed ibuprofen 2021-0 Yes [id number] 800mg Take 1 [facility] 800 mg 2-07 tablet by [facility] of tablet 00:00: mouth [place] 00 every 6 Medical (six) Branch hours as needed for Pain (scale 4-6). Diclofenac 202-0 Yes [id number] Apply to [facility] Sodium 2-07 area(s) 3 [facility] of (VOLTAREN) 00:00: (three) [place] 1 % gel 00 times [facility] daily as Branch needed for Pain (scale 7-10). Apply 1 gram to affected area TID as needed ibuprofen 2021-0 Yes [id number] 800mg Take 1 [facility] 800 mg 2-07 tablet by [facility] of tablet 00:00: mouth [place] 00 every 6 Medical (six) Branch hours as needed for Pain (scale 4-6). Diclofenac 2021-0 Yes [id number] Apply to [facility] Sodium 2-07 area(s) 3 [facility] of (VOLTAREN) 00:00: (three) [place] 1 % gel 00 times [facility] daily as Branch needed for Pain (scale 7-10). Apply 1 gram to affected area TID as needed ibuprofen 2021-0 Yes [id number] 800mg Take 1 [facility] 800 mg 2-07 tablet by [facility] of tablet 00:00: mouth [place] 00 every 6 Medical (six) Branch hours as needed for Pain (scale 4-6). Diclofenac 2021-0 Yes [id number] Apply to [facility] Sodium 2-07 area(s) 3 [facility] of (VOLTAREN) 00:00: (three) [place] 1 % gel 00 times [facility] daily as Branch needed for Pain (scale 7-10). Apply 1 gram to affected area TID as needed ibuprofen 2021-0 Yes [id number] 800mg Take 1 [facility] 800 mg 2-07 tablet by [facility] of tablet 00:00: mouth [place] 00 every 6 Medical (six) Branch hours as needed for Pain (scale 4-6). Diclofenac 2021-0 Yes [id number] Apply to [facility] Sodium 2-07 area(s) 3 [facility] of (VOLTAREN) 00:00: (three) [place] 1 % gel 00 times [facility] daily as Branch needed for Pain (scale 7-10). Apply 1 gram to affected area TID as needed ibuprofen 2021-0 Yes [id number] 800mg Take 1 [facility] 800 mg 2-07 tablet by [facility] of tablet 00:00: mouth [place] 00 every 6 Medical (six) Branch hours as needed for Pain (scale 4-6). Diclofenac 2021-0 Yes [id number] Apply to [facility] Sodium 2-07 area(s) 3 [facility] of (VOLTAREN) 00:00: (three) [place] 1 % gel 00 times [facility] daily as Branch needed for Pain (scale 7-10). Apply 1 gram to affected area TID as needed ibuprofen 2021-0 Yes [id number] 800mg Take 1 [facility] 800 mg 2-07 tablet by [facility] of tablet 00:00: mouth [place] 00 every 6 [facility] (six) Branch hours as needed for Pain (scale 4-6). Diclofenac 2021-0 Yes [id number] Apply to [facility] Sodium 2-07 area(s) 3 [facility] of (VOLTAREN) 00:00: (three) [place] 1 % gel 00 times [facility] daily as Branch needed for Pain (scale 7-10). Apply 1 gram to affected area TID as needed ibuprofen 2021-0 Yes [id number] 800mg Take 1 [facility] 800 mg 2-07 tablet by [facility] of tablet 00:00: mouth [place] 00 every 6 Medical (six) Branch hours as needed for Pain (scale 4-6). Diclofenac 2021-0 Yes [id number] Apply to [facility] Sodium 2-07 area(s) 3 [facility] of (VOLTAREN) 00:00: (three) [place] 1 % gel 00 times [facility] daily as Branch needed for Pain (scale 7-10). Apply 1 gram to affected area TID as needed ibuprofen 2021-0 Yes [id number] 800mg Take 1 [facility] 800 mg 2-07 tablet by [facility] of tablet 00:00: mouth [place] 00 every 6 Medical (six) Branch hours as needed for Pain (scale 4-6). Diclofenac 2021-0 Yes [id number] Apply to [facility] Sodium 2-07 area(s) 3 [facility] of (VOLTAREN) 00:00: (three) [place] 1 % gel 00 times [facility] daily as Branch needed for Pain (scale 7-10). Apply 1 gram to affected area TID as needed ibuprofen 2021-0 Yes [id number] 800mg Take 1 [facility] 800 mg 2-07 tablet by [facility] of tablet 00:00: mouth [place] 00 every 6 Medical (six) Branch hours as needed for Pain (scale 4-6). Diclofenac 2021-0 Yes [id number] Apply to [facility] Sodium 2-07 area(s) 3 [facility]y of (VOLTAREN) 00:00: (three) [place] 1 % gel 00 times [facility] daily as Branch needed for Pain (scale 7-10). Apply 1 gram to affected area TID as needed ibuprofen 2021-0 Yes [id number] 800mg Take 1 [facility] 800 mg 2-07 tablet by [facility] of tablet 00:00: mouth [place] 00 every 6 Medical (six) Branch hours as needed for Pain (scale 4-6). Diclofenac 2021-0 Yes [id number] Apply to [facility] Sodium 2-07 area(s) 3 [facility]y of (VOLTAREN) 00:00: (three) [place] 1 % gel 00 times [facility] daily as Branch needed for Pain (scale 7-10). Apply 1 gram to affected area TID as needed ibuprofen 2021-0 Yes [id number] 800mg Take 1 [facility] 800 mg 2-07 tablet by [facility] of tablet 00:00: mouth [place] 00 every 6 Medical (six) Branch hours as needed for Pain (scale 4-6). Diclofenac 2021-0 Yes [id number] Apply to [facility] Sodium 2-07 area(s) 3 [facility] of (VOLTAREN) 00:00: (three) [place] 1 % gel 00 times [facility] daily as Branch needed for Pain (scale 7-10). Apply 1 gram to affected area TID as needed ibuprofen 2021-0 Yes [id number] 800mg Take 1 [facility] 800 mg 2-07 tablet by [facility] of tablet 00:00: mouth [place] 00 every 6 Medical (six) Branch hours as needed for Pain (scale 4-6). Diclofenac 2021-0 Yes [id number] Apply to [facility] Sodium 2-07 area(s) 3 [facility]y of (VOLTAREN) 00:00: (three) [place] 1 % gel 00 times [facility] daily as Branch needed for Pain (scale 7-10). Apply 1 gram to affected area TID as needed ibuprofen 2021-0 Yes [id number] 800mg Take 1 [facility] 800 mg 2-07 tablet by [facility] of tablet 00:00: mouth [place] 00 every 6 Medical (six) Branch hours as needed for Pain (scale 4-6). Diclofenac 2021-0 Yes [id number] Apply to [facility] Sodium 2-07 area(s) 3 [facility]y of (VOLTAREN) 00:00: (three) [place] 1 % gel 00 times [facility] daily as Branch needed for Pain (scale 7-10). Apply 1 gram to affected area TID as needed ibuprofen 2021-0 Yes [id number] 800mg Take 1 [facility] 800 mg 2-07 tablet by [facility] of tablet 00:00: mouth [place] 00 every 6 Medical (six) Branch hours as needed for Pain (scale 4-6). Diclofenac 2022-0 Yes [id number] Apply to [facility] Sodium 2-07 area(s) 3 [facility]y of (VOLTAREN) 00:00: (three) [place] 1 % gel 00 times [facility] daily as Branch needed for Pain (scale 7-10). Apply 1 gram to affected area TID as needed ibuprofen 2021-0 Yes [id number] 800mg Take 1 [facility] 800 mg 2-07 tablet by [facility] of tablet 00:00: mouth [place] 00 every 6 Medical (six) Branch hours as needed for Pain (scale 4-6). Diclofenac 2021-0 Yes [id number] Apply to [facility] Sodium 2-07 area(s) 3 ity of (VOLTAREN) 00:00: (three) [place] 1 % gel 00 times [facility] daily as Branch needed for Pain (scale 7-10). Apply 1 gram to affected area TID as needed ibuprofen 2021-0 Yes [id number] 800mg Take 1 [facility] 800 mg 2-07 tablet by [facility] of tablet 00:00: mouth [place] 00 every 6 Medical (six) Branch hours as needed for Pain (scale 4-6). Diclofenac 2021-0 Yes [id number] Apply to [facility] Sodium 2-07 area(s) 3 [facility]y of (VOLTAREN) 00:00: (three) [place] 1 % gel 00 times [facility] daily as Branch needed for Pain (scale 7-10). Apply 1 gram to affected area TID as needed ibuprofen 2021-0 Yes [id number] 800mg Take 1 [facility] 800 mg 2-07 tablet by [facility] of tablet 00:00: mouth [place] 00 every 6 Medical (six) Branch hours as needed for Pain (scale 4-6). Diclofenac 2021-0 Yes [id number] Apply to [facility] Sodium 2-07 area(s) 3 ity of (VOLTAREN) 00:00: (three) [place] 1 % gel 00 times [facility] daily as Branch needed for Pain (scale 7-10). Apply 1 gram to affected area TID as needed ibuprofen 2022-0 Yes [id number] 800mg Take 1 [facility] 800 mg 2-07 tablet by [facility] of tablet 00:00: mouth [place] 00 every 6 Medical (six) Branch hours as needed for Pain (scale 4-6). Diclofenac 2022-0 Yes [id number] Apply to [facility] Sodium 2-07 area(s) 3 [facility]y of (VOLTAREN) 00:00: (three) [place] 1 % gel 00 times [facility] daily as Branch needed for Pain (scale 7-10). Apply 1 gram to affected area TID as needed ibuprofen 2021-0 Yes [id number] 800mg Take 1 [facility] 800 mg 2-07 tablet by [facility] of tablet 00:00: mouth [place] 00 every 6 Medical (six) Branch hours as needed for Pain (scale 4-6). Diclofenac 2021-0 Yes [id number] Apply to [facility] Sodium 2-07 area(s) 3 ity of (VOLTAREN) 00:00: (three[place] [facility] % gel 00 times [facility] daily as Branch needed for Pain (scale 7-10). Apply 1 gram to affected area TID as needed ibuprofen 2021-0 Yes [id number] 800mg Take 1 [facility] 800 mg 2-07 tablet by [facility] tablet 00:00: mouth [place] 00 every 6 Medical (six) Branch hours as needed for Pain (scale 4-6). Diclofenac 2021-0 Yes [id number] Apply to [facility] Sodium 2-07 area(s) 3 ity of (VOLTAREN) 00:00: (three) [place] 1 % gel 00 times [facility] daily as Branch needed for Pain (scale 7-10). Apply 1 gram to affected area TID as needed ibuprofen 2021-0 Yes [id number] 800mg Take 1 [facility] 800 mg 2-07 tablet by [facility] tablet 00:00: mouth [place] 00 every 6 Medical (six) Branch hours as needed for Pain (scale 4-6). Diclofenac 2021-0 Yes [id number] Apply to [facility] Sodium 2-07 area(s) 3 ity of (VOLTAREN) 00:00: (three) [place] 1 % gel 00 times [facility] daily as Branch needed for Pain (scale 7-10). Apply 1 gram to affected area TID as needed ibuprofen 2022-0 Yes [id number] 800mg Take 1 [facility] 800 mg 2-07 tablet by [facility] of tablet 00:00: mouth [place] 00 every 6 Medical (six) Branch hours as needed for Pain (scale 4-6). Diclofenac 2022-0 Yes [id number] Apply to [facility] Sodium 2-07 area(s) 3 ity of (VOLTAREN) 00:00: (three) [place] 1 % gel 00 times [facility] daily as Branch needed for Pain (scale 7-10). Apply 1 gram to affected area TID as needed ibuprofen 2021-0 Yes [id number] 800mg Take 1 [facility] 800 mg 2-07 tablet by [facility] tablet 00:00: mouth [place] 00 every 6 Medical (six) Branch hours as needed for Pain (scale 4-6). Diclofenac 2021-0 Yes [id number] Apply to [facility] Sodium 2-07 area(s) 3 ity of (VOLTAREN) 00:00: (three) [place] 1 % gel 00 times [facility] daily as Branch needed for Pain (scale 7-10). Apply 1 gram to affected area TID as needed ibuprofen 2021-0 Yes [id number] 800mg Take 1 [facility] 800 mg 2-07 tablet by [facility] tablet 00:00: mouth [place] 00 every 6 Medical (six) Branch hours as needed for Pain (scale 4-6). Diclofenac 2021-0 Yes [id number] Apply to [facility] Sodium 2-07 area(s) 3 ity of (VOLTAREN) 00:00: (three) [place] 1 % gel 00 times [facility] daily as Branch needed for Pain (scale 7-10). Apply 1 gram to affected area TID as needed ibuprofen 2021-0 Yes [id number] 800mg Take 1 [facility] 800 mg 2-07 tablet by [facility] tablet 00:00: mouth [place] 00 every 6 Medical (six) Branch hours as needed for Pain (scale 4-6). Diclofenac 2021-0 Yes [id number] Apply to [facility] Sodium 2-07 area(s) 3 ity of (VOLTAREN) 00:00: (three) [place] 1 % gel 00 times [facility] daily as Branch needed for Pain (scale 7-10). Apply 1 gram to affected area TID as needed ibuprofen 2021-0 Yes [id number] 800mg Take 1 [facility] 800 mg 2-07 tablet by [facility] tablet 00:00: mouth [place] 00 every 6 Medical (six) Branch hours as needed for Pain (scale 4-6). Diclofenac 2022-0 Yes [id number] Apply to [facility] Sodium 2-07 area(s) 3 [facility] of (VOLTAREN) 00:00: (three) [place] 1 % gel 00 times [facility] daily as Branch needed for Pain (scale 7-10). Apply 1 gram to affected area TID as needed ibuprofen 2022-0 Yes [id number] 800mg Take 1 [facility] 800 mg 2-07 tablet by [facility] tablet 00:00: mouth [place] 00 every 6 Medical (six) Branch hours as needed for Pain (scale 4-6). Diclofenac 2021-0 Yes [id number] Apply to [facility] Sodium 2-07 area(s) 3 ity of (VOLTAREN) 00:00: (three) [place] 1 % gel 00 times [facility] daily as Branch needed for Pain (scale 7-10). Apply 1 gram to affected area TID as needed ibuprofen 2021-0 Yes [id number] 800mg Take 1 [facility] 800 mg 2-07 tablet by [facility] of tablet 00:00: mouth [place] 00 every 6 Medical (six) Branch hours as needed for Pain (scale 4-6). Diclofenac 2021-0 Yes [id number] Apply to [facility] Sodium 2-07 area(s) 3 [facility] of (VOLTAREN) 00:00: (three) [place] 1 % gel 00 times [facility] daily as Branch needed for Pain (scale 7-10). Apply 1 gram to affected area TID as needed ibuprofen 2021-0 Yes [id number] 800mg Take 1 [facility] 800 mg 2-07 tablet by [facility] of tablet 00:00: mouth [place] 00 every 6 Medical (six) Branch hours as needed for Pain (scale 4-6). Diclofenac 2021-0 Yes [id number] Apply to [facility] Sodium 2-07 area(s) 3 ity of (VOLTAREN) 00:00: (three) [place] 1 % gel 00 times [facility] daily as Branch needed for Pain (scale 7-10). Apply 1 gram to affected area TID as needed ibuprofen 2021-0 Yes [id number] 800mg Take 1 [facility] 800 mg 2-07 tablet by [facility] of tablet 00:00: mouth [place] 00 every 6 Medical (six) Branch hours as needed for Pain (scale 4-6). Diclofenac 2022-0 Yes [id number] Apply to [facility] Sodium 2-07 area(s) 3 ity of (VOLTAREN) 00:00: (three) [place] 1 % gel 00 times [facility] daily as Branch needed for Pain (scale 7-10). Apply 1 gram to affected area TID as needed ibuprofen 202-0 Yes [id number] 800mg Take 1 [facility] 800 mg 2-07 tablet by [facility] of tablet 00:00: mouth [place] 00 every 6 Medical (six) Branch hours as needed for Pain (scale 4-6). Diclofenac 2021-0 Yes [id number] Apply to [facility] Sodium 2-07 area(s) 3 ity of (VOLTAREN) 00:00: (three) [place] 1 % gel 00 times [facility] daily as Branch needed for Pain (scale 7-10). Apply 1 gram to affected area TID as needed ibuprofen 2021-0 Yes [id number] 800mg Take 1 [facility] 800 mg 2-07 tablet by [facility] of tablet 00:00: mouth [place] 00 every 6 Medical (six) Branch hours as needed for Pain (scale 4-6). Diclofenac 2021-0 Yes [id number] Apply to [facility] Sodium 2-07 area(s) 3 ity of (VOLTAREN) 00:00: (three) [place] 1 % gel 00 times [facility] daily as Branch needed for Pain (scale 7-10). Apply 1 gram to affected area TID as needed ibuprofen 2021-0 Yes [id number] 800mg Take 1 [facility] 800 mg 2-07 tablet by [facility] of tablet 00:00: mouth [place] 00 every 6 Medical (six) Branch hours as needed for Pain (scale 4-6). Diclofenac 2021-0 Yes [id number] Apply to [facility] Sodium 2-07 area(s) 3 ity of (VOLTAREN) 00:00: (three) [place] 1 % gel 00 times [facility] daily as Branch needed for Pain (scale 7-10). Apply 1 gram to affected area TID as needed ibuprofen 2021-0 Yes [id number] 800mg Take 1 [facility] 800 mg 2-07 tablet by [facility] of tablet 00:00: mouth [place] 00 every 6 Medical (six) Branch hours as needed for Pain (scale 4-6). Diclofenac 2021-0 Yes [id number] Apply to [facility] Sodium 2-07 area(s) 3 ity of (VOLTAREN) 00:00: (three) [place] 1 % gel 00 times [facility] daily as Branch needed for Pain (scale 7-10). Apply 1 gram to affected area TID as needed ibuprofen 2021-0 Yes [id number] 800mg Take 1 [facility] 800 mg 2-07 tablet by [facility] of tablet 00:00: mouth [place] 00 every 6 Medical (six) Branch hours as needed for Pain (scale 4-6). Diclofenac 2021-0 Yes [id number] Apply to [facility] Sodium 2-07 area(s) 3 ity of (VOLTAREN) 00:00: (three) [place] 1 % gel 00 times [facility] daily as Branch needed for Pain (scale 7-10). Apply 1 gram to affected area TID as needed ibuprofen 2021-0 Yes [id number] 800mg Take 1 [facility] 800 mg 2-07 tablet by [facility] of tablet 00:00: mouth [place] 00 every 6 Medical (six) Branch hours as needed for Pain (scale 4-6). Diclofenac 202-0 Yes [id number] Apply to [facility] Sodium 2-07 area(s) 3 ity of (VOLTAREN) 00:00: (three) [place] 1 % gel 00 times [facility] daily as Branch needed for Pain (scale 7-10). Apply 1 gram to affected area TID as needed ibuprofen 2021-0 Yes [id number] 800mg Take 1 [facility] 800 mg 2-07 tablet by [facility] of tablet 00:00: mouth [place] 00 every 6 Medical (six) Branch hours as needed for Pain (scale 4-6). Diclofenac 2021-0 Yes [id number] Apply to [facility] Sodium 2-07 area(s) 3 [facility] of (VOLTAREN) 00:00: (three) [place] 1 % gel 00 times [facility] daily as Branch needed for Pain (scale 7-10). Apply 1 gram to affected area TID as needed ibuprofen 2021-0 Yes [id number] 800mg Take 1 [facility] 800 mg 2-07 tablet by [facility] of tablet 00:00: mouth [place] 00 every 6 Medical (six) Branch hours as needed for Pain (scale 4-6). Diclofenac 2022-0 Yes [id number] Apply to [facility] Sodium 2-07 area(s) 3 ity of (VOLTAREN) 00:00: (three) [place] 1 % gel 00 times [facility] daily as Branch needed for Pain (scale 7-10). Apply 1 gram to affected area TID as needed ibuprofen 2022-0 Yes [id number] 800mg Take 1 [facility] 800 mg 2-07 tablet by [facility] of tablet 00:00: mouth [place] 00 every 6 Medical (six) Branch hours as needed for Pain (scale 4-6). Diclofenac 2022-0 Yes [id number] Apply to [facility] Sodium 2-07 area(s) 3 ity of (VOLTAREN) 00:00: (three) [place] 1 % gel 00 times [facility] daily as Branch needed for Pain (scale 7-10). Apply 1 gram to affected area TID as needed ibuprofen 2021-0 Yes [id number] 800mg Take 1 [facility] 800 mg 2-07 tablet by [facility] of tablet 00:00: mouth [place] 00 every 6 Medical (six) Branch hours as needed for Pain (scale 4-6). Diclofenac 2021-0 Yes [id number] Apply to [facility] Sodium 2-07 area(s) 3 ity of (VOLTAREN) 00:00: (three) [place] 1 % gel 00 times [facility] daily as Branch needed for Pain (scale 7-10). Apply 1 gram to affected area TID as needed ibuprofen 0 Yes [id number] 800mg Take 1 [facility] 800 mg 2-07 tablet by [facility] of tablet 00:00: mouth [place] 00 every 6 Medical (six) Branch hours as needed for Pain (scale 4-6). Diclofenac 2021-0 Yes [id number] Apply to [facility] Sodium 2-07 area(s) 3 ity of (VOLTAREN) 00:00: (three) [place] 1 % gel 00 times [facility] daily as Branch needed for Pain (scale 7-10). Apply 1 gram to affected area TID as needed ibuprofen 2021-0 Yes [id number] 800mg Take 1 [facility] 800 mg 2-07 tablet by [facility] of tablet 00:00: mouth [place] 00 every 6 Medical (six) Branch hours as needed for Pain (scale 4-6). Diclofenac 2021-0 Yes [id number] Apply to [facility] Sodium 2-07 area(s) 3 ity of (VOLTAREN) 00:00: (three) [place] 1 % gel 00 times [facility] daily as Branch needed for Pain (scale 7-10). Apply 1 gram to affected area TID as needed ibuprofen 2021-0 Yes [id number] 800mg Take 1 [facility] 800 mg 2-07 tablet by [facility] of tablet 00:00: mouth [place] 00 every 6 Medical (six) Branch hours as needed for Pain (scale 4-6). Diclofenac 2021-0 Yes [id number] Apply to [facility] Sodium 2-07 area(s) 3 ity of (VOLTAREN) 00:00: (three) [place] 1 % gel 00 times [facility] daily as Branch needed for Pain (scale 7-10). Apply 1 gram to affected area TID as needed ibuprofen 2021-0 Yes [id number] 800mg Take 1 [facility] 800 mg 2-07 tablet by [facility] of tablet 00:00: mouth [place] 00 every 6 Medical (six) Branch hours as needed for Pain (scale 4-6). Diclofenac 2021-0 Yes [id number] Apply to [facility] Sodium 2-07 area(s) 3 ity of (VOLTAREN) 00:00: (three) [place] 1 % gel 00 times [facility] daily as Branch needed for Pain (scale 7-10). Apply 1 gram to affected area TID as needed ibuprofen 2021-0 Yes [id number] 800mg Take 1 [facility] 800 mg 2-07 tablet by [facility] of tablet 00:00: mouth [place] 00 every 6 Medical (six) Branch hours as needed for Pain (scale 4-6). Diclofenac 2021-0 Yes [id number] Apply to [facility] Sodium 2-07 area(s) 3 ity of (VOLTAREN) 00:00: (three) [place] 1 % gel 00 times [facility] daily as Branch needed for Pain (scale 7-10). Apply 1 gram to affected area TID as needed ibuprofen 2021-0 Yes [id number] 800mg Take 1 [facility] 800 mg 2-07 tablet by [facility] of tablet 00:00: mouth [place] 00 every 6 Medical (six) Branch hours as needed for Pain (scale 4-6). Diclofenac 2021-0 Yes [id number] Apply to [facility] Sodium 2-07 area(s) 3 ity of (VOLTAREN) 00:00: (three) [place] 1 % gel 00 times [facility] daily as Branch needed for Pain (scale 7-10). Apply 1 gram to affected area TID as needed ibuprofen 2021-0 Yes [id number] 800mg Take 1 [facility] 800 mg 2-07 tablet by [facility] of tablet 00:00: mouth [place] 00 every 6 Medical (six) Branch hours as needed for Pain (scale 4-6). Diclofenac 202-0 Yes [id number] Apply to [facility] Sodium 2-07 area(s) 3 ity of (VOLTAREN) 00:00: (three) [place] 1 % gel 00 times [facility] daily as Branch needed for Pain (scale 7-10). Apply 1 gram to affected area TID as needed ibuprofen 2021-0 Yes [id number] 800mg Take 1 [facility] 800 mg 2-07 tablet by [facility] of tablet 00:00: mouth [place] 00 every 6 Medical (six) Branch hours as needed for Pain (scale 4-6). Diclofenac 2021-0 Yes [id number] Apply to [facility] Sodium 2-07 area(s) 3 ity of (VOLTAREN) 00:00: (three) [place] 1 % gel 00 times [facility] daily as Branch needed for Pain (scale 7-10). Apply 1 gram to affected area TID as needed ibuprofen 2021-0 Yes [id number] 800mg Take 1 [facility] 800 mg 2-07 tablet by [facility] of tablet 00:00: mouth [place] 00 every 6 Medical (six) Branch hours as needed for Pain (scale 4-6). Diclofenac 2021-0 Yes [id number] Apply to [facility] Sodium 2-07 area(s) 3 ity of (VOLTAREN) 00:00: (three) [place] 1 % gel 00 times [facility] daily as Branch needed for Pain (scale 7-10). Apply 1 gram to affected area TID as needed ibuprofen 2021-0 Yes [id number] 800mg Take 1 [facility] 800 mg 2-07 tablet by [facility] of tablet 00:00: mouth [place] 00 every 6 Medical (six) Branch hours as needed for Pain (scale 4-6). Diclofenac 2021-0 Yes [id number] Apply to [facility] Sodium 2-07 area(s) 3 ity of (VOLTAREN) 00:00: (three) [place] 1 % gel 00 times [facility] daily as Branch needed for Pain (scale 7-10). Apply 1 gram to affected area TID as needed ibuprofen 202-0 Yes [id number] 800mg Take 1 [facility] 800 mg 2-07 tablet by [facility] of tablet 00:00: mouth [place] 00 every 6 Medical (six) Branch hours as needed for Pain (scale 4-6). Diclofenac 202-0 Yes [id number] Apply to [facility] Sodium 2-07 area(s) 3 ity of (VOLTAREN) 00:00: (three) [place] 1 % gel 00 times [facility] daily as Branch needed for Pain (scale 7-10). Apply 1 gram to affected area TID as needed METFORMIN Yes [id number] TAKE 1 [facility] 500 mg 1-26 TABLET BY ity o f 24 hr 00:00: MOUTH [place] tablet 00 EVERY DAY Medical WITH Branch BREAKFAST METFORMIN Yes [id number] TAKE 1 [facility] [place] [facility] 500 mg 1-26 TABLET BY ity o f 24 hr 00:00: MOUTH [place] tablet 00 EVERY DAY Medical WITH Branch BREAKFAST METFORMIN Yes [id number] TAKE 1 [facility] [place] [facility] 500 mg 1-26 TABLET BY ity o f 24 hr 00:00: MOUTH [place] tablet 00 EVERY DAY Medical WITH Branch BREAKFAST METFORMIN Yes [id number] TAKE 1 [facility] [place] [facility] 500 mg 1-26 TABLET BY ity o f 24 hr 00:00: MOUTH [place] tablet 00 EVERY DAY Medical WITH Branch BREAKFAST METFORMIN Yes [id number] TAKE 1 [facility] [facility] 500 mg 1-26 TABLET BY ity o f 24 hr 00:00: MOUTH [place] tablet 00 EVERY DAY Medical WITH Branch BREAKFAST METFORMIN Yes [id number] TAKE 1 [facility] [place] [facility] 500 mg 1-26 TABLET BY it[facility] o f 24 hr 00:00: MOUTH [place] tablet 00 EVERY DAY Medical WITH Branch BREAKFAST METFORMIN Yes [id number] TAKE 1 [facility] [place] [facility] 500 mg 1-26 TABLET BY it[facility] o f 24 hr 00:00: MOUTH [place] tablet 00 EVERY DAY Medical WITH Branch BREAKFAST METFORMIN 0 Yes [id number] TAKE 1 [facility] [place] [facility] 500 mg 1-26 TABLET BY it[facility] o f 24 hr 00:00: MOUTH [place] tablet 00 EVERY DAY Medical WITH Branch BREAKFAST METFORMIN 0 Yes [id number] TAKE 1 [facility] [place] [facility] 500 mg 1-26 TABLET BY ity o f 24 hr 00:00: MOUTH [place] tablet 00 EVERY DAY Medical WITH Branch BREAKFAST METFORMIN 0 Yes [id number] TAKE 1 [facility] [place] [facility] 500 mg 1-26 TABLET BY ity o f 24 hr 00:00: MOUTH [place] tablet 00 EVERY DAY Medical WITH Branch BREAKFAST METFORMIN 0 Yes [id number] TAKE 1 [facility] [facility] 500 mg 1-26 TABLET BY ity o f 24 hr 00:00: MOUTH [place] tablet 00 EVERY DAY Medical WITH Branch BREAKFAST METFORMIN Yes [id number] TAKE 1 [facility] [place] [facility] 500 mg 1-26 TABLET BY ity o f 24 hr 00:00: MOUTH [place] tablet 00 EVERY DAY Medical WITH Branch BREAKFAST METFORMIN 2021-0 Yes [id number] TAKE 1 [facility] [place] [facility] 500 mg 1-26 TABLET BY ity o f 24 hr 00:00: MOUTH [place] tablet 00 EVERY DAY Medical WITH Branch BREAKFAST METFORMIN 2021-0 Yes [id number] TAKE 1 [facility] [place] [facility] 500 mg 1-26 TABLET BY ity o f 24 hr 00:00: MOUTH [place] tablet 00 EVERY DAY Medical WITH Branch BREAKFAST METFORMIN 2021-0 Yes [id number] TAKE 1 [facility] [facility] 500 mg 1-26 TABLET BY ity o f 24 hr 00:00: MOUTH [place] tablet 00 EVERY DAY Medical WITH Branch BREAKFAST METFORMIN 2021-0 Yes [id number] TAKE 1 [facility] [facility] 500 mg 1-26 TABLET BY ity o f 24 hr 00:00: MOUTH [place] tablet 00 EVERY DAY Medical WITH Branch BREAKFAST METFORMIN 2021-0 Yes [id number] TAKE 1 [facility] [place] [facility] 500 mg 1-26 TABLET BY ity o f 24 hr 00:00: MOUTH [place] tablet 00 EVERY DAY Medical WITH Branch BREAKFAST METFORMIN 2021-0 Yes [id number] TAKE 1 [facility] [place] [facility] 500 mg 1-26 TABLET BY ity o f 24 hr 00:00: MOUTH [place] tablet 00 EVERY DAY Medical WITH Branch BREAKFAST METFORMIN 2021-0 Yes [id number] TAKE 1 [facility] [place] [facility] 500 mg 1-26 TABLET BY ity o f 24 hr 00:00: MOUTH [place] tablet 00 EVERY DAY Medical WITH Branch BREAKFAST METFORMIN 2021-0 Yes [id number] TAKE 1 [facility] [place] [facility] 500 mg 1-26 TABLET BY it[facility] o f 24 hr 00:00: MOUTH [place] tablet 00 EVERY DAY Medical WITH Branch BREAKFAST METFORMIN 2021-0 Yes [id number] TAKE 1 [facility] [place] [facility] 500 mg 1-26 TABLET BY it[facility] o f 24 hr 00:00: MOUTH [place] tablet 00 EVERY DAY Medical WITH Branch BREAKFAST METFORMIN 2021-0 Yes [id number] TAKE 1 [facility] [place] [facility] 500 mg 1-26 TABLET BY it[facility] o f 24 hr 00:00: MOUTH [place] tablet 00 EVERY DAY Medical WITH Branch BREAKFAST METFORMIN 2021-0 Yes [id number] TAKE 1 [facility] [place] [facility] 500 mg 1-26 TABLET BY ity o f 24 hr 00:00: MOUTH [place] tablet 00 EVERY DAY Medical WITH Branch BREAKFAST METFORMIN 2021-0 Yes [id number] TAKE 1 [facility] [place] [facility] 500 mg 1-26 TABLET BY ity o f 24 hr 00:00: MOUTH [place] tablet 00 EVERY DAY Medical WITH Branch BREAKFAST METFORMIN 2021-0 Yes [id number] TAKE 1 [facility] [place] [facility] 500 mg 1-26 TABLET BY ity o f 24 hr 00:00: MOUTH [place] tablet 00 EVERY DAY Medical WITH Branch BREAKFAST METFORMIN 2021-0 Yes [id number] TAKE 1 [facility] [place] [facility] 500 mg 1-26 TABLET BY ity o f 24 hr 00:00: MOUTH [place] tablet 00 EVERY DAY Medical WITH Branch BREAKFAST METFORMIN 2021-0 Yes [id number] TAKE 1 [facility] [place] [facility] 500 mg 1-26 TABLET BY ity o f 24 hr 00:00: MOUTH [place] tablet 00 EVERY DAY Medical WITH Branch BREAKFAST METFORMIN 2021-0 Yes [id number] TAKE 1 [facility] [place] 500 mg 1-26 TABLET BY ity o f 24 hr 00:00: MOUTH [place] tablet 00 EVERY DAY Medical WITH Branch BREAKFAST METFORMIN 2021-0 Yes [id number] TAKE 1 [facility] [place] [facility] 500 mg 1-26 TABLET BY ity o f 24 hr 00:00: MOUTH [place] tablet 00 EVERY DAY Medical WITH Branch BREAKFAST METFORMIN 2021-0 Yes [id number] TAKE 1 [facility] [place] [facility] 500 mg 1-26 TABLET BY ity o f 24 hr 00:00: MOUTH [place] tablet 00 EVERY DAY Medical WITH Branch BREAKFAST METFORMIN 2021-0 Yes [id number] TAKE 1 [facility] [place] [facility] 500 mg 1-26 TABLET BY it[facility] o f 24 hr 00:00: MOUTH [place] tablet 00 EVERY DAY Medical WITH Branch BREAKFAST METFORMIN 2021-0 Yes [id number] TAKE 1 [facility] [place] [facility] 500 mg 1-26 TABLET BY it[facility] o f 24 hr 00:00: MOUTH [place] tablet 00 EVERY DAY Medical WITH Branch BREAKFAST METFORMIN 2021-0 Yes [id number] TAKE 1 [facility] [place] [facility] 500 mg 1-26 TABLET BY ity o f 24 hr 00:00: MOUTH [place] tablet 00 EVERY DAY Medical WITH Branch BREAKFAST METFORMIN 2-0 Yes [id number] TAKE 1 [facility] [place] [facility] 500 mg 1-26 TABLET BY ity o f 24 hr 00:00: MOUTH [place] tablet 00 EVERY DAY Medical WITH Branch BREAKFAST METFORMIN 2021-0 Yes [id number] TAKE 1 [facility] [place] 500 mg 1-26 TABLET BY it[facility] o f 24 hr 00:00: MOUTH [place] tablet 00 EVERY DAY Medical WITH Branch BREAKFAST METFORMIN 2021-0 Yes [id number] TAKE 1 [facility] [facility] 500 mg 1-26 TABLET BY it[facility] o f 24 hr 00:00: MOUTH [place] tablet 00 EVERY DAY Medical WITH Branch BREAKFAST METFORMIN 2021-0 Yes [id number] TAKE 1 [facility] [facility] 500 mg 1-26 TABLET BY ity o f 24 hr 00:00: MOUTH [place] tablet 00 EVERY DAY Medical WITH Branch BREAKFAST METFORMIN 2021-0 Yes [id number] TAKE 1 [facility] [place] 500 mg 1-26 TABLET BY ity o f 24 hr 00:00: MOUTH [place] tablet 00 EVERY DAY Medical WITH Branch BREAKFAST METFORMIN 2021-0 Yes [id number] TAKE 1 [facility] [place] [facility] 500 mg 1-26 TABLET BY ity o f 24 hr 00:00: MOUTH [place] tablet 00 EVERY DAY Medical WITH Branch BREAKFAST METFORMIN 2021-0 Yes [id number] TAKE 1 [facility] [facility] 500 mg 1-26 TABLET BY ity o f 24 hr 00:00: MOUTH [place] tablet 00 EVERY DAY Medical WITH Branch BREAKFAST METFORMIN 2021-0 Yes [id number] TAKE 1 [facility] [place] [facility] 500 mg 1-26 TABLET BY ity o f 24 hr 00:00: MOUTH [place] tablet 00 EVERY DAY Medical WITH Branch BREAKFAST METFORMIN 2021-0 Yes [id number] TAKE 1 [facility] [place] [facility] 500 mg 1-26 TABLET BY it[facility] o f 24 hr 00:00: MOUTH [place] tablet 00 EVERY DAY Medical WITH Branch BREAKFAST METFORMIN 2021-0 Yes [id number] TAKE 1 [facility] [place] [facility] 500 mg 1-26 TABLET BY ity o f 24 hr 00:00: MOUTH [place] tablet 00 EVERY DAY Medical WITH Branch BREAKFAST METFORMIN 2021-0 Yes [id number] TAKE 1 [facility] [place] [facility] 500 mg 1-26 TABLET BY ity o f 24 hr 00:00: MOUTH [place] tablet 00 EVERY DAY Medical WITH Branch BREAKFAST METFORMIN 2021-0 Yes [id number] TAKE 1 [facility] [facility] 500 mg 1-26 TABLET BY ity o f 24 hr 00:00: MOUTH [place] tablet 00 EVERY DAY Medical WITH Branch BREAKFAST METFORMIN 2021-0 Yes [id number] TAKE 1 [facility] [facility] 500 mg 1-26 TABLET BY ity o f 24 hr 00:00: MOUTH [place] tablet 00 EVERY DAY Medical WITH Branch BREAKFAST METFORMIN 2021-0 Yes [id number] TAKE 1 [facility] [facility] 500 mg 1-26 TABLET BY ity o f 24 hr 00:00: MOUTH [place] tablet 00 EVERY DAY Medical WITH Branch BREAKFAST METFORMIN 2021-0 Yes [id number] TAKE 1 [facility] [facility] 500 mg 1-26 TABLET BY ity o f 24 hr 00:00: MOUTH [place] tablet 00 EVERY DAY Medical WITH Branch BREAKFAST METFORMIN 2021-0 Yes [id number] TAKE 1 [facility] [facility] 500 mg 1-26 TABLET BY ity o f 24 hr 00:00: MOUTH [place] tablet 00 EVERY DAY Medical WITH Branch BREAKFAST METFORMIN 2021-0 Yes [id number] TAKE 1 [facility] [facility] 500 mg 1-26 TABLET BY ity o f 24 hr 00:00: MOUTH [place] tablet 00 EVERY DAY Medical WITH Branch BREAKFAST METFORMIN 2021-0 Yes [id number] TAKE 1 [facility] [facility] 500 mg 1-26 TABLET BY ity o f 24 hr 00:00: MOUTH [place] tablet 00 EVERY DAY Medical WITH Branch BREAKFAST METFORMIN 2021-0 Yes [id number] TAKE 1 [facility] [facility] 500 mg 1-26 TABLET BY ity o f 24 hr 00:00: MOUTH [place] tablet 00 EVERY DAY Medical WITH Branch BREAKFAST METFORMIN 2021-0 Yes [id number] TAKE 1 [facility] [facility] 500 mg 1-26 TABLET BY ity o f 24 hr 00:00: MOUTH [place] tablet 00 EVERY DAY Medical WITH Branch BREAKFAST METFORMIN 2021-0 Yes [id number] TAKE 1 [facility] 500 mg 1-26 TABLET BY ity o f 24 hr 00:00: MOUTH [place] tablet 00 EVERY DAY Medical WITH Branch BREAKFAST METFORMIN 2021-0 Yes [id number] TAKE 1 [facility] [facility] 500 mg 1-26 TABLET BY ity o f 24 hr 00:00: MOUTH [place] tablet 00 EVERY DAY Medical WITH Branch BREAKFAST METFORMIN 2021-0 Yes [id number] TAKE 1 [facility] [facility] 500 mg 1-26 TABLET BY ity o f 24 hr 00:00: MOUTH [place] tablet 00 EVERY DAY Medical WITH Branch BREAKFAST METFORMIN 2021-0 Yes [id number] TAKE 1 [facility] [facility] 500 mg 1-26 TABLET BY ity o f 24 hr 00:00: MOUTH [place] tablet 00 EVERY DAY Medical WITH Branch BREAKFAST METFORMIN 2-0 Yes [id number] TAKE 1 [facility] [facility] 500 mg 1-26 TABLET BY ity o f 24 hr 00:00: MOUTH [place] tablet 00 EVERY DAY Medical WITH Branch BREAKFAST METFORMIN 2021-0 Yes [id number] TAKE 1 [facility] [facility] 500 mg 1-26 TABLET BY ity o f 24 hr 00:00: MOUTH [place] tablet 00 EVERY DAY Medical WITH Branch BREAKFAST METFORMIN 2022-0 Yes [id number] TAKE 1 [facility] [facility] 500 mg 1-26 TABLET BY ity o f 24 hr 00:00: MOUTH [place] tablet 00 EVERY DAY Medical WITH Branch BREAKFAST METFORMIN 2021-0 Yes [id number] TAKE 1 [facility] 500 mg 1-26 TABLET BY ity o f 24 hr 00:00: MOUTH [place] tablet 00 EVERY DAY Medical WITH Branch BREAKFAST METFORMIN 2021-0 Yes [id number] TAKE 1 [facility] 500 mg 1-26 TABLET BY ity o f 24 hr 00:00: MOUTH [place] tablet 00 EVERY DAY Medical WITH Branch BREAKFAST METFORMIN 2021-0 Yes [id number] TAKE 1 [facility] [facility] 500 mg 1-26 TABLET BY ity o f 24 hr 00:00: MOUTH [place] tablet 00 EVERY DAY Medical WITH Branch BREAKFAST METFORMIN 2021-0 Yes [id number] TAKE 1 [facility] [facility] 500 mg 1-26 TABLET BY ity o f 24 hr 00:00: MOUTH [place] tablet 00 EVERY DAY Medical WITH Branch BREAKFAST METFORMIN 2021-0 Yes [id number] TAKE 1 [facility] [facility] 500 mg 1-26 TABLET BY ity o f 24 hr 00:00: MOUTH [place] tablet 00 EVERY DAY Medical WITH Branch BREAKFAST METFORMIN 2021-0 Yes [id number] TAKE 1 [facility] [facility] 500 mg 1-26 TABLET BY ity o f 24 hr 00:00: MOUTH [place] tablet 00 EVERY DAY Medical WITH Branch BREAKFAST METFORMIN 2021-0 Yes [id number] TAKE 1 [facility] 500 mg 1-26 TABLET BY ity o f 24 hr 00:00: MOUTH [place] tablet 00 EVERY DAY Medical WITH Branch BREAKFAST METFORMIN 2021-0 Yes [id number] TAKE 1 [facility] 500 mg 1-26 TABLET BY ity o f 24 hr 00:00: MOUTH [place] tablet 00 EVERY DAY Medical WITH Branch BREAKFAST METFORMIN 2021-0 Yes [id number] TAKE 1 [facility] [facility] 500 mg 1-26 TABLET BY ity o f 24 hr 00:00: MOUTH [place] tablet 00 EVERY DAY Medical WITH Branch BREAKFAST METFORMIN 2-0 Yes [id number] TAKE 1 [facility] [facility] 500 mg 1-26 TABLET BY ity o f 24 hr 00:00: MOUTH [place] tablet 00 EVERY DAY Medical WITH Branch BREAKFAST METFORMIN 2021-0 Yes [id number] TAKE 1 [facility] 500 mg 1-26 TABLET BY ity o f 24 hr 00:00: MOUTH [place] tablet 00 EVERY DAY Medical WITH Branch BREAKFAST METFORMIN 2021-0 Yes [id number] TAKE 1 Un violeta ER 500 mg 1-26 TABLET BY ity o f 24 hr 00:00: MOUTH [place] tablet 00 EVERY DAY Medical WITH Branch BREAKFAST METFORMIN 2021-0 Yes [id number] TAKE 1 [facility] ER 500 mg 1-26 TABLET BY ity o f 24 hr 00:00: MOUTH [place] tablet 00 EVERY DAY Medical WITH Branch BREAKFAST METFORMIN 2021-0 Yes [id number] TAKE 1 [facility] ER 500 mg 1-26 TABLET BY ity o f 24 hr 00:00: MOUTH [place] tablet 00 EVERY DAY Medical WITH Branch BREAKFAST METFORMIN 2021-0 Yes [id number] TAKE 1 [facility] ER 500 mg 1-26 TABLET BY it[facility] o f 24 hr 00:00: MOUTH [place] tablet 00 EVERY DAY Medical WITH Branch BREAKFAST METFORMIN 2021-0 Yes [id number] TAKE 1 [facility] ER 500 mg 1-26 TABLET BY it[facility] o f 24 hr 00:00: MOUTH [place] tablet 00 EVERY DAY Medical WITH Branch BREAKFAST METFORMIN 2021-0 Yes [id number] TAKE 1 [facility] ER 500 mg 1-26 TABLET BY it[facility] o f 24 hr 00:00: MOUTH [place] tablet 00 EVERY DAY Medical WITH Branch BREAKFAST METFORMIN 2021-0 Yes [id number] TAKE 1 [facility] ER 500 mg 1-26 TABLET BY ity o f 24 hr 00:00: MOUTH [place] tablet 00 EVERY DAY Medical WITH Branch BREAKFAST METFORMIN 2021-0 Yes [id number] TAKE 1 [facility] ER 500 mg 1-26 TABLET BY ity o f 24 hr 00:00: MOUTH [place] tablet 00 EVERY DAY Medical WITH Branch BREAKFAST METFORMIN 2021-0 Yes [id number] TAKE 1 [facility] ER 500 mg 1-26 TABLET BY it[facility] o f 24 hr 00:00: MOUTH [place] tablet 00 EVERY DAY Medical WITH Branch BREAKFAST METFORMIN 2021-0 Yes [id number] TAKE 1 [facility] ER 500 mg 1-26 TABLET BY it[facility] o f 24 hr 00:00: MOUTH [place] tablet 00 EVERY DAY Medical WITH Branch BREAKFAST METFORMIN 2-0 Yes [id number] TAKE 1 [facility] ER 500 mg 1-26 TABLET BY it[facility] o f 24 hr 00:00: MOUTH [place] tablet 00 EVERY DAY Medical WITH Branch BREAKFAST METFORMIN 2021-0 Yes [id number] TAKE 1 [facility] ER 500 mg 1-26 TABLET BY it[facility] o f 24 hr 00:00: MOUTH [place] tablet 00 EVERY DAY Medical WITH Branch BREAKFAST METFORMIN 2021-0 Yes [id number] TAKE 1 [facility] ER 500 mg 1-26 TABLET BY it[facility] o f 24 hr 00:00: MOUTH [place] tablet 00 EVERY DAY Medical WITH Branch BREAKFAST METFORMIN 2021-0 Yes [id number] TAKE 1 [facility] ER 500 mg 1-26 TABLET BY [facility] o f 24 hr 00:00: MOUTH [place] tablet 00 EVERY DAY Medical WITH Branch BREAKFAST METFORMIN 2021-0 Yes [id number] TAKE 1 [facility] ER 500 mg 1-26 TABLET BY it[facility] o f 24 hr 00:00: MOUTH [place] tablet 00 EVERY DAY Medical WITH Branch BREAKFAST METFORMIN 2021-0 Yes [id number] TAKE 1 [facility] ER 500 mg 1-26 TABLET BY it[facility] o f 24 hr 00:00: MOUTH [place] tablet 00 EVERY DAY Medical WITH Branch BREAKFAST METFORMIN 2021-0 Yes [id number] TAKE 1 [facility] ER 500 mg 1-26 TABLET BY it[facility] o f 24 hr 00:00: MOUTH [place] tablet 00 EVERY DAY Medical WITH Branch BREAKFAST METFORMIN 2021-0 Yes [id number] TAKE 1 [facility] ER 500 mg 1-26 TABLET BY it[facility] o f 24 hr 00:00: MOUTH [place] tablet 00 EVERY DAY Medical WITH Branch BREAKFAST METFORMIN 2021-0 Yes [id number] TAKE 1 [facility] ER 500 mg 1-26 TABLET BY [facility] o f 24 hr 00:00: MOUTH [place] tablet 00 EVERY DAY Medical WITH Branch BREAKFAST METFORMIN 2021-0 Yes [id number] TAKE 1 [facility] ER 500 mg 1-26 TABLET BY [facility] o f 24 hr 00:00: MOUTH [place] tablet 00 EVERY DAY Medical WITH Branch BREAKFAST METFORMIN 2021-0 Yes [id number] TAKE 1 [facility] ER 500 mg 1-26 TABLET BY [facility] o f 24 hr 00:00: MOUTH [place] tablet 00 EVERY DAY Medical WITH Branch BREAKFAST METFORMIN 2021-0 Yes [id number] TAKE 1 [facility] ER 500 mg 1-26 TABLET BY it[facility] o f 24 hr 00:00: MOUTH [place] tablet 00 EVERY DAY Medical WITH Branch BREAKFAST atorvastati 2021-0 Yes 10mg Take 1 [facility] ers n 10 mg 1-19 tablet by [facility] of tablet 00:00: mouth at [place] 00 bedtime. Medical Branch atorvastati 0 Yes 10mg Take 1 [facility] ers n 10 mg 1-19 tablet by [facility] of tablet 00:00: mouth at [place] 00 bedtime. Medical Branch atorvastati 2-0 Yes 10mg Take 1 [facility] ers n 10 mg 1-19 tablet by [facility] of tablet 00:00: mouth at [place] [address] bedtime. Medical Branch atorvastati 2-0 Yes 10mg Take 1 [facility] ers n 10 mg 1-19 tablet by [facility] of tablet 00:00: mouth at [place] [address] bedtime. Medical Branch atorvastati 2-0 Yes 10mg Take 1 [facility] n 10 mg 1-19 tablet by [facility] of tablet 00:00: mouth at [place] bedtime. Medical Branch atorvastati 2-0 Yes 10mg Take 1 [facility] n 10 mg 1-19 tablet by [facility] of tablet 00:00: mouth at [place] [address] bedtime. Medical Branch atorvastati 2-0 Yes 10mg Take 1 [facility] n 10 mg 1-19 tablet by [facility] of tablet 00:00: mouth at [place] [address] bedtime. Medical Branch atorvastati 2-0 Yes 10mg Take 1 [facility] ers n 10 mg 1-19 tablet by [facility] of tablet 00:00: mouth at [place] [address] bedtime. Medical Branch atorvastati 2-0 Yes 10mg Take 1 [facility] n 10 mg 1-19 tablet by [facility] of tablet 00:00: mouth at [place] [address] bedtime. Medical [facility] atorvastati 2-0 Yes 10mg Take 1 [facility] n 10 mg 1-19 tablet by [facility] of tablet 00:00: mouth at [place] [address] bedtime. Medical Branch atorvastati 2-0 Yes 10mg Take 1 [facility] n 10 mg 1-19 tablet by [facility] of tablet 00:00: mouth at [place] [address] bedtime. Medical Branch atorvastati 2-0 Yes 10mg Take 1 [facility] n 10 mg 1-19 tablet by [facility] of tablet 00:00: mouth at [place] [address] bedtime. Medical Branch atorvastati 2-0 Yes 10mg Take 1 [facility] n 10 mg 1-19 tablet by [facility] of tablet 00:00: mouth at [place] [address] bedtime. Medical [facility] atorvastati 2-0 Yes 10mg Take 1 [facility] n 10 mg 1-19 tablet by [facility] of tablet 00:00: mouth at [place] [address] bedtime. Medical [facility] atorvastati 2-0 Yes 10mg Take 1 [facility] n 10 mg 1-19 tablet by [facility] of tablet 00:00: mouth at [place] [address] bedtime. [facility] atorvastati 2-0 Yes 10mg Take 1 [facility] n 10 mg 1-19 tablet by [facility] of tablet 00:00: mouth at [place] [address] bedtime. [facility] atorvastati 2-0 Yes 10mg Take 1 [facility] n 10 mg 1-19 tablet by [facility] of tablet 00:00: mouth at [place] [address] bedtime. [facility] atorvastati 2-0 Yes 10mg Take 1 [facility] n 10 mg 1-19 tablet by [facility] of tablet 00:00: mouth at [place] [address] bedtime. Medical Branch atorvastati 2-0 Yes 10mg Take 1 [facility] n 10 mg 1-19 tablet by [facility] of tablet 00:00: mouth at [place] [address] bedtime. Medical [facility] atorvastati 2-0 Yes 10mg Take 1 [facility] n 10 mg 1-19 tablet by [facility] of tablet 00:00: mouth at [place] [address] bedtime. [facility] atorvastati 2-0 Yes 10mg Take 1 [facility] n 10 mg 1-19 tablet by [facility] of tablet 00:00: mouth at [place] [address] bedtime. [facility] atorvastati 2-0 Yes 10mg Take 1 [facility] n 10 mg 1-19 tablet by [facility] of tablet 00:00: mouth at [place] [address] bedtime. [facility] atorvastati 2-0 Yes 10mg Take 1 [facility] n 10 mg 1-19 tablet by [facility] of tablet 00:00: mouth at [place] [address] bedtime. [facility] atorvastati 2-0 Yes 10mg Take 1 [facility] n 10 mg 1-19 tablet by [facility] of tablet 00:00: mouth at [place] [address] bedtime. [facility] atorvastati 2-0 Yes 10mg Take 1 [facility] n 10 mg 1-19 tablet by [facility] of tablet 00:00: mouth at [place] [address] bedtime. [facility] atorvastati 2-0 Yes 10mg Take 1 [facility] n 10 mg 1-19 tablet by [facility] of tablet 00:00: mouth at [place] [address] bedtime. [facility] atorvastati 2-0 Yes 10mg Take 1 [facility] n 10 mg 1-19 tablet by [facility] of tablet 00:00: mouth at [place] [address] bedtime. [facility] atorvastati 2-0 Yes 10mg Take 1 [facility] n 10 mg 1-19 tablet by [facility] of tablet 00:00: mouth at [place] [address] bedtime. [facility] atorvastati 2-0 Yes 10mg Take 1 [facility] n 10 mg 1-19 tablet by [facility] of tablet 00:00: mouth at [place] [address] bedtime. [facility] atorvastati 2-0 Yes 10mg Take 1 [facility] n 10 mg 1-19 tablet by [facility] of tablet 00:00: mouth at [place] bedtime. Medical [facility] atorvastati 2-0 Yes 10mg Take 1 [facility] n 10 mg 1-19 tablet by [facility] of tablet 00:00: mouth at [place] [address] bedtime. [facility] atorvastati 2-0 Yes 10mg Take 1 [facility] n 10 mg 1-19 tablet by [facility] of tablet 00:00: mouth at [place] [address] bedtime. [facility] atorvastati 2-0 Yes 10mg Take 1 [facility] n 10 mg 1-19 tablet by [facility] of tablet 00:00: mouth at [place] [address] bedtime. [facility] atorvastati 2-0 Yes 10mg Take 1 [facility] n 10 mg 1-19 tablet by [facility] of tablet 00:00: mouth at [place] [address] bedtime. [facility] atorvastati 2-0 Yes 10mg Take 1 [facility] n 10 mg 1-19 tablet by [facility] of tablet 00:00: mouth at [place] [address] bedtime. [facility] atorvastati 2-0 Yes 10mg Take 1 [facility] n 10 mg 1-19 tablet by [facility] of tablet 00:00: mouth at [place] [address] bedtime. [facility] atorvastati 2-0 Yes 10mg Take 1 [facility] n 10 mg 1-19 tablet by [facility] of tablet 00:00: mouth at [place] [address] bedtime. [facility] atorvastati 2-0 Yes 10mg Take 1 [facility] n 10 mg 1-19 tablet by [facility] of tablet 00:00: mouth at [place] [address] bedtime. [facility] atorvastati 2-0 Yes 10mg Take 1 [facility] n 10 mg 1-19 tablet by [facility] of tablet 00:00: mouth at [place] [address] bedtime. [facility] atorvastati 2-0 Yes 10mg Take 1 [facility] n 10 mg 1-19 tablet by [facility] of tablet 00:00: mouth at [place] [address] bedtime. [facility] atorvastati 2-0 Yes 10mg Take 1 [facility] n 10 mg 1-19 tablet by [facility] of tablet 00:00: mouth at [place] [address] bedtime. [facility] atorvastati 2-0 Yes 10mg Take 1 [facility] n 10 mg 1-19 tablet by ity of tablet 00:00: mouth at [place] [address] bedtime. [facility] atorvastati 2-0 Yes 10mg Take 1 [facility] n 10 mg 1-19 tablet by [facility] of tablet 00:00: mouth at [place] [address] bedtime. [facility] atorvastati 2-0 Yes 10mg Take 1 [facility] n 10 mg 1-19 tablet by ity of tablet 00:00: mouth at [place] [address] bedtime. [facility] atorvastati 2-0 Yes 10mg Take 1 [facility] n 10 mg 1-19 tablet by ity of tablet 00:00: mouth at [place] [address] bedtime. [facility] atorvastati 2-0 Yes 10mg Take 1 [facility] n 10 mg 1-19 tablet by [facility] of tablet 00:00: mouth at [place] [address] bedtime. [facility] atorvastati 2-0 Yes 10mg Take 1 [facility] n 10 mg 1-19 tablet by [facility] of tablet 00:00: mouth at [place] [address] bedtime. [facility] atorvastati 2-0 Yes 10mg Take 1 [facility] n 10 mg 1-19 tablet by ity of tablet 00:00: mouth at [place] [address] bedtime. [facility] atorvastati 2-0 Yes 10mg Take 1 [facility] n 10 mg 1-19 tablet by [facility]y of tablet 00:00: mouth at [place] [address] bedtime. [facility] atorvastati 2-0 Yes 10mg Take 1 [facility] n 10 mg 1-19 tablet by [facility] of tablet 00:00: mouth at [place] [address] bedtime. [facility] atorvastati 2-0 Yes 10mg Take 1 [facility] n 10 mg 1-19 tablet by [facility] of tablet 00:00: mouth at [place] [address] bedtime. [facility] atorvastati 2-0 Yes 10mg Take 1 [facility] 10 mg 1-19 tablet by [facility] of tablet 00:00: mouth at [place] [address] bedtime. [facility] atorvastati 2-0 Yes 10mg Take 1 [facility] 10 mg 1-19 tablet by [facility] of tablet 00:00: mouth at [place] [address] bedtime. [facility] atorvastati 2-0 Yes 10mg Take 1 [facility] n 10 mg 1-19 tablet by [facility] of tablet 00:00: mouth at [place] [address] bedtime. [facility] atorvastati 2-0 Yes 10mg Take 1 [facility] n 10 mg 1-19 tablet by [facility] of tablet 00:00: mouth at [place] bedtime. [facility] atorvastati 2-0 Yes 10mg Take 1 [facility] n 10 mg 1-19 tablet by [facility]y of tablet 00:00: mouth at [place] [address] bedtime. [facility] atorvastati 2-0 Yes 10mg Take 1 [facility] n 10 mg 1-19 tablet by [facility] of tablet 00:00: mouth at [place] [address] bedtime. [facility] atorvastati 2-0 Yes 10mg Take 1 [facility] 10 mg 1-19 tablet by [facility] of tablet 00:00: mouth at [place] [address] bedtime. [facility] atorvastati 2-0 Yes 10mg Take 1 [facility] n 10 mg 1-19 tablet by [facility] of tablet 00:00: mouth at [place] [address] bedtime. [facility] atorvastati 2-0 Yes 10mg Take 1 [facility] n 10 mg 1-19 tablet by [facility] of tablet 00:00: mouth at [place] [address] bedtime. [facility] atorvastati 2-0 Yes 10mg Take 1 [facility] 10 mg 1-19 tablet by [facility] of tablet 00:00: mouth at [place] [address] bedtime. [facility] atorvastati 2-0 Yes 10mg Take 1 [facility] 10 mg 1-19 tablet by [facility] of tablet 00:00: mouth at [place] [address] bedtime. [facility] atorvastati 2-0 Yes 10mg Take 1 [facility] 10 mg 1-19 tablet by [facility] of tablet 00:00: mouth at [place] [address] bedtime. [facility] atorvastati 2-0 Yes 10mg Take 1 [facility] 10 mg 1-19 tablet by [facility] of tablet 00:00: mouth at [place] [address] bedtime. [facility] atorvastati 2-0 Yes 10mg Take 1 [facility] 10 mg 1-19 tablet by [facility] of tablet 00:00: mouth at [place] [address] bedtime. [facility] atorvastati 2-0 Yes 10mg Take 1 [facility] 10 mg 1-19 tablet by [facility] of tablet 00:00: mouth at [place] [address] bedtime. [facility] atorvastati 2-0 Yes 10mg Take 1 [facility] 10 mg 1-19 tablet by [facility] of tablet 00:00: mouth at [place] [address] bedtime. [facility] atorvastati 2-0 Yes 10mg Take 1 [facility] 10 mg 1-19 tablet by [facility] of tablet 00:00: mouth at [place] [address] bedtime. [facility] atorvastati 2-0 Yes 10mg Take 1 [facility] 10 mg 1-19 tablet by [facility] of tablet 00:00: mouth at [place] [address] bedtime. [facility] atorvastati 2-0 Yes 10mg Take 1 [facility] 10 mg 1-19 tablet by [facility] of tablet 00:00: mouth at [place] [address] bedtime. [facility] atorvastati 2-0 Yes 10mg Take 1 [facility] 10 mg 1-19 tablet by [facility] of tablet 00:00: mouth at [place] [address] bedtime. [facility] atorvastati 2-0 Yes 10mg Take 1 [facility] 10 mg 1-19 tablet by [facility] of tablet 00:00: mouth at [place] [address] bedtime. [facility] atorvastati 2-0 Yes 10mg Take 1 [facility] 10 mg 1-19 tablet by [facility] of tablet 00:00: mouth at [place] [address] bedtime. [facility] atorvastati 2-0 Yes 10mg Take 1 [facility] 10 mg 1-19 tablet by [facility] of tablet 00:00: mouth at [place] [address] bedtime. [facility] atorvastati 2-0 Yes 10mg Take 1 [facility] 10 mg 1-19 tablet by [facility] of tablet 00:00: mouth at [place] [address] bedtime. [facility] atorvastati 2-0 Yes 10mg Take 1 [facility] 10 mg 1-19 tablet by [facility] of tablet 00:00: mouth at [place] [address] bedtime. [facility] atorvastati 2-0 Yes 10mg Take 1 [facility] 10 mg 1-19 tablet by [facility] of tablet 00:00: mouth at [place] [address] bedtime. [facility] atorvastati 2-0 Yes 10mg Take 1 [facility] 10 mg 1-19 tablet by [facility] of tablet 00:00: mouth at [place] [address] bedtime. [facility] atorvastati 2-0 Yes 10mg Take 1 [facility] 10 mg 1-19 tablet by [facility] of tablet 00:00: mouth at [place] [address] bedtime. [facility] atorvastati 2-0 Yes 10mg Take 1 [facility] 10 mg 1-19 tablet by [facility] of tablet 00:00: mouth at [place] bedtime. [facility] atorvastati 2-0 Yes 10mg Take 1 [facility] 10 mg 1-19 tablet by [facility] of tablet 00:00: mouth at [place] [address] bedtime. [facility] atorvastati 2-0 Yes 10mg Take 1 [facility] 10 mg 1-19 tablet by [facility] of tablet 00:00: mouth at [place] [address] bedtime. [facility] atorvastati 2-0 Yes 10mg Take 1 [facility] 10 mg 1-19 tablet by [facility] of tablet 00:00: mouth at [place] [address] bedtime. [facility] atorvastati 2-0 Yes 10mg Take 1 [facility] 10 mg 1-19 tablet by [facility] of tablet 00:00: mouth at [place] [address] bedtime. [facility] atorvastati 2-0 Yes 10mg Take 1 [facility] 10 mg 1-19 tablet by [facility] of tablet 00:00: mouth at [place] [address] bedtime. [facility] atorvastati 2-0 Yes 10mg Take 1 [facility] 10 mg 1-19 tablet by [facility] of tablet 00:00: mouth at [place] [address] bedtime. [facility] atorvastati 2-0 Yes 10mg Take 1 [facility] 10 mg 1-19 tablet by [facility] of tablet 00:00: mouth at [place] [address] bedtime. [facility] atorvastati 2-0 Yes 10mg Take 1 [facility] 10 mg 1-19 tablet by [facility] of tablet 00:00: mouth at [place] [address] bedtime. [facility] atorvastati 2-0 Yes 10mg Take 1 [facility] 10 mg 1-19 tablet by [facility] of tablet 00:00: mouth at [place] [address] bedtime. [facility] atorvastati 2-0 Yes 10mg Take 1 [facility] 10 mg 1-19 tablet by [facility] of tablet 00:00: mouth at [place] 00 bedtime. [facility] atorvastati 0 Yes 10mg Take 1 [facility] 10 mg 1-19 tablet by [facility] of tablet 00:00: mouth at [place] 00 bedtime. [facility] atorvastati 0 Yes 10mg Take 1 [facility] 10 mg 1-19 tablet by [facility] of tablet 00:00: mouth at [place] 00 bedtime. [facility] atorvastati 0 Yes 10mg Take 1 [facility] n 10 mg 1-19 tablet by [facility] of tablet 00:00: mouth at [place] 00 bedtime. [facility] Branch colchicine Yes Take by [facility] ers 0.6 mg Cap 1-18 mouth. ity of 13:28: [place] [address] Medical Branch colchicine Yes Take by [facility] ers 0.6 mg Cap 1-18 mouth. ity of 13:28: [place] [address] Medical Branch colchicine Yes Take by [facility] ers 0.6 mg Cap 1-18 mouth. ity of 13:28: [place] [address] Medical Branch colchicine Yes Take by [facility] 0.6 mg Cap 1-18 mouth. ity of 13:28: [place] [address] Medical Branch colchicine Yes Take by [facility] 0.6 mg Cap 1-18 mouth. ity of 13:28: [place] [address] Medical Branch colchicine Yes Take by [facility] 0.6 mg Cap 1-18 mouth. ity of 13:28: [place] [address] Medical Branch colchicine Yes Take by [facility] 0.6 mg Cap 1-18 mouth. ity of 13:28: [place] [address] Medical Branch colchicine Yes Take by [facility] 0.6 mg Cap 1-18 mouth. ity of 13:28: [place] [address] Medical Branch colchicine Yes Take by [facility] 0.6 mg Cap 1-18 mouth. ity of 13:28: [place] [address] Medical Branch colchicine Yes Take by [facility] 0.6 mg Cap 1-18 mouth. ity of 13:28: [place] [address] [facility] Branch colchicine Yes Take by [facility] 0.6 mg Cap 1-18 mouth. ity of 13:28: [place] [address] [facility] Branch colchicine Yes Take by [facility] 0.6 mg Cap 1-18 mouth. ity of 13:28: [place] [address] [facility] Branch colchicine Yes Take by [facility] 0.6 mg Cap 1-18 mouth. ity of 13:28: [place] [address] [facility] Branch colchicine Yes Take by [facility] 0.6 mg Cap 1-18 mouth. ity of 13:28: [place] [address] [facility] Branch colchicine Yes Take by [facility] 0.6 mg Cap 1-18 mouth. ity of 13:28: [place] [address] [facility] colchicine Yes Take by [facility] 0.6 mg Cap 1-18 mouth. ity of 13:28: [place] [address] [facility] colchicine Yes Take by [facility] 0.6 mg Cap 1-18 mouth. ity of 13:28: [place] [address] [facility] colchicine Yes Take by [facility] 0.6 mg Cap 1-18 mouth. ity of 13:28: [place] [address] [facility] colchicine Yes Take by [facility] 0.6 mg Cap 1-18 mouth. ity of 13:28: [place] [address] [facility] colchicine Yes Take by [facility] 0.6 mg Cap 1-18 mouth. ity of 13:28: [place] [address] [facility] colchicine Yes Take by [facility] 0.6 mg Cap 1-18 mouth. ity of 13:28: [place] [address] [facility] Branch colchicine Yes Take by [facility] vers 0.6 mg Cap 1-18 mouth. ity of 13:28: [address] Branch colchicine Yes Take by [facility] ers 0.6 mg Cap 1-18 mouth. ity of 13:28: [place] [address] Medical Branch colchicine Yes Take by [facility] 0.6 mg Cap 1-18 mouth. ity of 13:28: [place] [address] Medical Branch colchicine Yes Take by [facility] 0.6 mg Cap 1-18 mouth. ity of 13:28: [place] [address] [facility] Branch colchicine Yes Take by [facility] 0.6 mg Cap 1-18 mouth. ity of 13:28: [address] Branch allopurinoL 2021-0 2022- No [id number] 100mg Take 1 [facility] 100 mg 08-05 tablet by [facility] tablet 00:00: 00:00 mouth [place] 00 :00 daily. Medical [facility] METFORMIN 2020-07- No [id number] TAKE 1 [facility] ER 500 mg 09-03 TABLET BY [facility] of 24 hr 00:00: 00:00 MOUTH [place] tablet 00 :00 EVERY DAY Medical WITH Branch BREAKFAST cyanocobala 2020-07 Yes [id number] 2000ug Take 1 [facility] min 1-29 tablet by [facility] of (VITAMIN 00:00: mouth [place] B-12) 2,000 00 daily. Medica l mcg tablet Branch cyanocobala 2020-07 Yes [id number] 2000ug Take 1 [facility] min 1-29 tablet by ity of (VITAMIN 00:00: mouth [place] B-12) 2,000 00 daily. Medica l mcg tablet Branch cyanocobala 2020-07 Yes [id number] 2000ug Take 1 [facility] min 1-29 tablet by [facility]y of (VITAMIN 00:00: mouth [place] B-12) 2,000 00 daily. Medica l mcg tablet Branch cyanocobala 2020-07 Yes [id number] 2000ug Take 1 [facility] min 1-29 tablet by [facility]y of (VITAMIN 00:00: mouth [place] B-12) 2,000 00 daily. Medica l mcg tablet Branch cyanocobala 2020-07 Yes [id number] 2000ug Take 1 [facility] min 1-29 tablet by [facility]y of (VITAMIN 00:00: mouth [place] B-12) 2,000 00 daily. Medica [facility] mcg tablet Branch cyanocobala 2020-07 Yes [id number] 2000ug Take 1 [facility] min 1-29 tablet by [facility]y of (VITAMIN 00:00: mouth [place] B-12) 2,000 00 daily. Medica l mcg tablet Branch cyanocobala 2020-07 Yes [id number] 2000ug Take 1 [facility] min 1-29 tablet by ity of (VITAMIN 00:00: mouth [place] B-12) 2,000 00 daily. Medica [facility] mcg tablet Branch cyanocobala 2020-07 Yes [id number] 2000ug Take 1 [facility] min 1-29 tablet by ity of (VITAMIN 00:00: mouth [place] B-12) 2,000 00 daily. Medica l mcg tablet Branch cyanocobala 2020-07 Yes [id number] 2000ug Take 1 [facility] min 1-29 tablet by [facility]y of (VITAMIN 00:00: mouth [place] B-12) 2,000 00 daily. Medica [facility] mcg tablet Branch cyanocobala 2020-07 Yes [id number] 2000ug Take 1 [facility] min 1-29 tablet by ity of (VITAMIN 00:00: mouth [place] B-12) 2,000 00 daily. Medica [facility] mcg tablet Branch cyanocobala 2020-07 Yes [id number] 2000ug Take 1 [facility] min 1-29 tablet by [facility]y of (VITAMIN 00:00: mouth [place] B-12) 2,000 00 daily. Medica [facility] mcg tablet Branch cyanocobala 2020-07 Yes [id number] 2000ug Take 1 [facility] min 1-29 tablet by ity of (VITAMIN 00:00: mouth [place] B-12) 2,000 00 daily. Medica [facility] mcg tablet Branch cyanocobala 2020-07 Yes [id number] 2000ug Take 1 [facility] min 1-29 tablet by ity of (VITAMIN 00:00: mouth [place] B-12) 2,000 00 daily. Medica [facility] mcg tablet [facility] cyanocobala 2020-07 Yes [id number] 2000ug Take 1 [facility] min 1-29 tablet by ity of (VITAMIN 00:00: mouth [place] B-12) 2,000 00 daily. Medica [facility] mcg tablet Branch cyanocobala 2020-07 Yes [id number] 2000ug Take 1 [facility] min 1-29 tablet by ity of (VITAMIN 00:00: mouth [place] B-12) 2,000 00 daily. [facility]ica [facility] mcg tablet Branch cyanocobala 2020-07 Yes [id number] 2000ug Take 1 [facility] min 1-29 tablet by ity of (VITAMIN 00:00: mouth [place] B-12) 2,000 00 daily. Medica [facility] mcg tablet Branch cyanocobala 2020-07 Yes [id number] 2000ug Take 1 [facility] min 1-29 tablet by ity of (VITAMIN 00:00: mouth [place] B-12) 2,000 00 daily. Medica [facility] mcg tablet Branch cyanocobala 2020-07 Yes [id number] 2000ug Take 1 [facility] min 1-29 tablet by ity of (VITAMIN 00:00: mouth [place] B-12) 2,000 00 daily. Medica [facility] mcg tablet Branch cyanocobala 2020-07 Yes [id number] 2000ug Take 1 [facility] min 1-29 tablet by ity of (VITAMIN 00:00: mouth [place] B-12) 2,000 00 daily. Medica [facility] mcg tablet Branch cyanocobala 2020-07 Yes [id number] 2000ug Take 1 [facility] min 1-29 tablet by ity of (VITAMIN 00:00: mouth [place] B-12) 2,000 00 daily. Medica [facility] mcg tablet Branch cyanocobala 2020-07 Yes [id number] 2000ug Take 1 [facility] min 1-29 tablet by ity of (VITAMIN 00:00: mouth [place] B-12) 2,000 00 daily. Medica [facility] mcg tablet Branch cyanocobala 2020-07 Yes [id number] 2000ug Take 1 [facility] min 1-29 tablet by ity of (VITAMIN 00:00: mouth [place] B-12) 2,000 00 daily. Medica [facility] mcg tablet Branch cyanocobala 2020-07 Yes [id number] 2000ug Take 1 [facility] min 1-29 tablet by ity of (VITAMIN 00:00: mouth [place] B-12) 2,000 00 daily. Medica [facility] mcg tablet Branch cyanocobala 2020-07 Yes [id number] 2000ug Take 1 [facility] min 1-29 tablet by ity of (VITAMIN 00:00: mouth [place] B-12) 2,000 00 daily. Medica [facility] mcg tablet Branch cyanocobala 2020-07 Yes [id number] 2000ug Take 1 [facility] min 1-29 tablet by ity of (VITAMIN 00:00: mouth [place] B-12) 2,000 00 daily. Medica [facility] mcg tablet Branch cyanocobala 2020-07 Yes [id number] 2000ug Take 1 [facility] min 1-29 tablet by ity of (VITAMIN 00:00: mouth [place] B-12) 2,000 00 daily. Medica [facility] mcg tablet Branch cyanocobala 2020-07 Yes [id number] 2000ug Take 1 [facility] min 1-29 tablet by ity of (VITAMIN 00:00: mouth [place] B-12) 2,000 00 daily. Medica [facility] mcg tablet Branch cyanocobala 2020-07 Yes [id number] 2000ug Take 1 [facility] min 1-29 tablet by ity of (VITAMIN 00:00: mouth [place] B-12) 2,000 00 daily. Medica [facility] mcg tablet Branch cyanocobala 2020-07 Yes [id number] 2000ug Take 1 [facility] min 1-29 tablet by ity of (VITAMIN 00:00: mouth [place] B-12) 2,000 00 daily. Medica [facility] mcg tablet Branch cyanocobala 2020-07 Yes [id number] 2000ug Take 1 [facility] min 1-29 tablet by [facility]y of (VITAMIN 00:00: mouth [place] B-12) 2,000 00 daily. Medica [facility] mcg tablet Branch cyanocobala 2020-07 Yes [id number] 2000ug Take 1 [facility] min 1-29 tablet by ity of (VITAMIN 00:00: mouth [place] B-12) 2,000 00 daily. Medica [facility] mcg tablet Branch cyanocobala 2020-07 Yes [id number] 2000ug Take 1 [facility] min 1-29 tablet by ity of (VITAMIN 00:00: mouth [place] B-12) 2,000 00 daily. [facility] cyanocobala 2020-07 Yes [id number] 2000ug Take 1 [facility] min 1-29 tablet by [facility] (VITAMIN 00:00: mouth [place] B-12) 2,000 00 daily. [facility] tablet [facility] cyanocobala 2020-07 Yes [id number] 2000ug Take 1 [facility] min 1-29 tablet by [facility] of (VITAMIN 00:00: mouth [place] B-12) 2,000 00 daily. [facility] tablet [facility] cyanocobala 2020-07 Yes [id number] 2000ug Take 1 [facility] min 1-29 tablet by [facility] of (VITAMIN 00:00: mouth [place] B-12) 2,000 00 daily. [facility] tablet [facility] cyanocobala 2020-07 Yes [id number] 2000ug Take 1 [facility] min 1-29 tablet by [facility] of (VITAMIN 00:00: mouth [place] B-12) 2,000 00 daily. [facility] tablet [facility] cyanocobala 2020-07 Yes [id number] 2000ug Take 1 [facility] min 1-29 tablet by [facility] of (VITAMIN 00:00: mouth [place] B-12) 2,000 00 daily. [facility] tablet [facility] cyanocobala 2020-07 Yes [id number] 2000ug Take 1 [facility] min 1-29 tablet by [facility] of (VITAMIN 00:00: mouth [place] B-12) 2,000 00 daily. [facility] tablet [facility] cyanocobala 2020-07 Yes [id number] 2000ug Take 1 [facility] min 1-29 tablet by [facility] of (VITAMIN 00:00: mouth [place] B-12) 2,000 00 daily. [facility] tablet [facility] cyanocobala 2020-07 Yes [id number] 2000ug Take 1 [facility] min 1-29 tablet by [facility] of (VITAMIN 00:00: mouth [place] B-12) 2,000 00 daily. [facility] tablet [facility] cyanocobala 2020-07 Yes [id number] 2000ug Take 1 [facility] min 1-29 tablet by [facility] of (VITAMIN 00:00: mouth [place] B-12) 2,000 00 daily. [facility] tablet [facility] cyanocobala 2020-07 Yes [id number] 2000ug Take 1 [facility] min 1-29 tablet by [facility] of (VITAMIN 00:00: mouth [place] B-12) 2,000 00 daily. [facility] tablet [facility] cyanocobala 2020-07 Yes [id number] 2000ug Take 1 [facility] min 1-29 tablet by [facility] of (VITAMIN 00:00: mouth [place] B-12) 2,000 00 daily. [facility] tablet [facility] cyanocobala 2020-07 Yes [id number] 2000ug Take 1 [facility] min 1-29 tablet by [facility] of (VITAMIN 00:00: mouth [place] B-12) 2,000 00 daily. [facility] tablet [facility] cyanocobala 2020-07 Yes [id number] 2000ug Take 1 [facility] min 1-29 tablet by [facility] of (VITAMIN 00:00: mouth [place] B-12) 2,000 00 daily. [facility] tablet [facility] cyanocobala 2020-07 Yes [id number] 2000ug Take 1 [facility] min 1-29 tablet by [facility] of (VITAMIN 00:00: mouth [place] B-12) 2,000 00 daily. [facility] tablet [facility] cyanocobala 2020-07 Yes [id number] 2000ug Take 1 [facility] min 1-29 tablet by [facility] of (VITAMIN 00:00: mouth [place] B-12) 2,000 00 daily. [facility] tablet [facility] cyanocobala 2020-07 Yes [id number] 2000ug Take 1 [facility] min 1-29 tablet by [facility] of (VITAMIN 00:00: mouth [place] B-12) 2,000 00 daily. [facility] tablet [facility] cyanocobala 2020-07 Yes [id number] 2000ug Take 1 [facility] min 1-29 tablet by [facility] of (VITAMIN 00:00: mouth [place] B-12) 2,000 00 daily. [facility] tablet [facility] cyanocobala 2020-07 Yes [id number] 2000ug Take 1 [facility] min 1-29 tablet by [facility] of (VITAMIN 00:00: mouth [place] B-12) 2,000 00 daily. [facility] tablet [facility] cyanocobala 2020-07 Yes [id number] 2000ug Take 1 [facility] min 1-29 tablet by [facility] of (VITAMIN 00:00: mouth [place] B-12) 2,000 00 daily. [facility] tablet [facility] cyanocobala 2020-07 Yes [id number] 2000ug Take 1 [facility] min 1-29 tablet by [facility] of (VITAMIN 00:00: mouth [place] B-12) 2,000 00 daily. [facility] tablet [facility] cyanocobala 2020-07 Yes [id number] 2000ug Take 1 [facility] min 1-29 tablet by [facility] of (VITAMIN 00:00: mouth [place] B-12) 2,000 00 daily. [facility] tablet [facility] cyanocobala 2020-07 Yes [id number] 2000ug Take 1 [facility] min 1-29 tablet by [facility] of (VITAMIN 00:00: mouth [place] B-12) 2,000 00 daily. [facility] tablet [facility] cyanocobala 2020-07 Yes [id number] 2000ug Take 1 [facility] min 1-29 tablet by [facility] of (VITAMIN 00:00: mouth [place] B-12) 2,000 00 daily. [facility] tablet [facility] cyanocobala 2020-07 Yes [id number] 2000ug Take 1 [facility] min 1-29 tablet by [facility] of (VITAMIN 00:00: mouth [place] B-12) 2,000 00 daily. [facility] tablet [facility] cyanocobala 2020-07 Yes [id number] 2000ug Take 1 [facility] min 1-29 tablet by [facility] of (VITAMIN 00:00: mouth [place] B-12) 2,000 00 daily. [facility] tablet [facility] cyanocobala 2020-07 Yes [id number] 2000ug Take 1 [facility] min 1-29 tablet by [facility] of (VITAMIN 00:00: mouth [place] B-12) 2,000 00 daily. [facility] tablet [facility] cyanocobala 2020-07 Yes [id number] 2000ug Take 1 [facility] min 1-29 tablet by [facility] of (VITAMIN 00:00: mouth [place] B-12) 2,000 00 daily. [facility] tablet [facility] cyanocobala 2020-07 Yes [id number] 2000ug Take 1 [facility] min 1-29 tablet by [facility] of (VITAMIN 00:00: mouth [place] B-12) 2,000 00 daily. [facility] tablet [facility] cyanocobala 2020-07 Yes [id number] 2000ug Take 1 [facility] min 1-29 tablet by [facility] of (VITAMIN 00:00: mouth [place] B-12) 2,000 00 daily. [facility] tablet [facility] cyanocobala 2020-07 Yes [id number] 2000ug Take 1 [facility] min 1-29 tablet by [facility] of (VITAMIN 00:00: mouth [place] B-12) 2,000 00 daily. [facility] tablet [facility] cyanocobala 2020-07 Yes [id number] 2000ug Take 1 [facility] min 1-29 tablet by [facility] of (VITAMIN 00:00: mouth [place] B-12) 2,000 00 daily. [facility] tablet [facility] cyanocobala 2020-07 Yes [id number] 2000ug Take 1 [facility] min 1-29 tablet by [facility] of (VITAMIN 00:00: mouth [place] B-12) 2,000 00 daily. [facility] tablet [facility] cyanocobala 2020-07 Yes [id number] 2000ug Take 1 [facility] min 1-29 tablet by [facility] of (VITAMIN 00:00: mouth [place] B-12) 2,000 00 daily. [facility] tablet [facility] cyanocobala 2020-07 Yes [id number] 2000ug Take 1 [facility] min 1-29 tablet by [facility] of (VITAMIN 00:00: mouth [place] B-12) 2,000 00 daily. [facility] tablet [facility] cyanocobala 2020-07 Yes [id number] 2000ug Take 1 [facility] min 1-29 tablet by [facility] of (VITAMIN 00:00: mouth [place] B-12) 2,000 00 daily. [facility] tablet [facility] cyanocobala 2020-07 Yes [id number] 2000ug Take 1 [facility] min 1-29 tablet by [facility] of (VITAMIN 00:00: mouth [place] B-12) 2,000 00 daily. [facility] tablet [facility] cyanocobala 2020-07 Yes [id number] 2000ug Take 1 [facility] min 1-29 tablet by [facility] of (VITAMIN 00:00: mouth [place] B-12) 2,000 00 daily. [facility] tablet [facility] cyanocobala 2020-07 Yes [id number] 2000ug Take 1 [facility] min 1-29 tablet by [facility] of (VITAMIN 00:00: mouth [place] B-12) 2,000 00 daily. [facility] tablet [facility] cyanocobala 2020-07 Yes [id number] 2000ug Take 1 [facility] min 1-29 tablet by [facility] of (VITAMIN 00:00: mouth [place] B-12) 2,000 00 daily. [facility] tablet [facility] cyanocobala 2020-07 Yes [id number] 2000ug Take 1 [facility] min 1-29 tablet by [facility] of (VITAMIN 00:00: mouth [place] B-12) 2,000 00 daily. [facility] tablet [facility] cyanocobala 2020-07 Yes [id number] 2000ug Take 1 [facility] min 1-29 tablet by [facility] of (VITAMIN 00:00: mouth [place] B-12) 2,000 00 daily. [facility] tablet [facility] cyanocobala 2020-07 Yes [id number] 2000ug Take 1 [facility] min 1-29 tablet by [facility] of (VITAMIN 00:00: mouth [place] B-12) 2,000 00 daily. [facility] tablet [facility] cyanocobala 2020-07 Yes [id number] 2000ug Take 1 [facility] min 1-29 tablet by [facility] of (VITAMIN 00:00: mouth [place] B-12) 2,000 00 daily. [facility] tablet [facility] cyanocobala 2020-07 Yes [id number] 2000ug Take 1 [facility] min 1-29 tablet by [facility] of (VITAMIN 00:00: mouth [place] B-12) 2,000 00 daily. [facility] tablet [facility] cyanocobala 2020-07 Yes [id number] 2000ug Take 1 [facility] min 1-29 tablet by [facility] of (VITAMIN 00:00: mouth [place] B-12) 2,000 00 daily. [facility] tablet [facility] cyanocobala 2020-07 Yes [id number] 2000ug Take 1 [facility] min 1-29 tablet by [facility] of (VITAMIN 00:00: mouth [place] B-12) 2,000 00 daily. [facility] tablet [facility] cyanocobala 2020-07 Yes [id number] 2000ug Take 1 [facility] min 1-29 tablet by [facility] of (VITAMIN 00:00: mouth [place] B-12) 2,000 00 daily. [facility] tablet [facility] cyanocobala 2020-07 Yes [id number] 2000ug Take 1 [facility] min 1-29 tablet by [facility] of (VITAMIN 00:00: mouth [place] B-12) 2,000 00 daily. [facility] tablet [facility] cyanocobala 2020-07 Yes [id number] 2000ug Take 1 [facility] min 1-29 tablet by [facility] of (VITAMIN 00:00: mouth [place] B-12) 2,000 00 daily. [facility] tablet [facility] cyanocobala 2020-07 Yes [id number] 2000ug Take 1 [facility] min 1-29 tablet by [facility] of (VITAMIN 00:00: mouth [place] B-12) 2,000 00 daily. [facility] tablet [facility] cyanocobala 2020-07 Yes [id number] 2000ug Take 1 [facility] min 1-29 tablet by [facility] of (VITAMIN 00:00: mouth [place] B-12) 2,000 00 daily. [facility] tablet [facility] cyanocobala 2020-07 Yes [id number] 2000ug Take 1 [facility] min 1-29 tablet by [facility] of (VITAMIN 00:00: mouth [place] B-12) 2,000 00 daily. [facility] tablet [facility] cyanocobala 2020-07 Yes [id number] 2000ug Take 1 [facility] min 1-29 tablet by [facility] of (VITAMIN 00:00: mouth [place] B-12) 2,000 00 daily. [facility] tablet [facility] cyanocobala 2020-07 Yes [id number] 2000ug Take 1 [facility] min 1-29 tablet by [facility] of (VITAMIN 00:00: mouth [place] B-12) 2,000 00 daily. [facility] tablet [facility] cyanocobala 2020-07 Yes [id number] 2000ug Take 1 [facility] min 1-29 tablet by [facility] of (VITAMIN 00:00: mouth [place] B-12) 2,000 00 daily. [facility] tablet [facility] cyanocobala 2020-07 Yes [id number] 2000ug Take 1 [facility] min 1-29 tablet by [facility] of (VITAMIN 00:00: mouth [place] B-12) 2,000 00 daily. [facility] tablet [facility] cyanocobala 2020-07 Yes [id number] 2000ug Take 1 [facility] min 1-29 tablet by [facility] of (VITAMIN 00:00: mouth [place] B-12) 2,000 00 daily. [facility] tablet [facility] cyanocobala 2020-07 Yes [id number] 2000ug Take 1 [facility] min 1-29 tablet by [facility] of (VITAMIN 00:00: mouth [place] B-12) 2,000 00 daily. [facility] tablet [facility] cyanocobala 2020-07 Yes [id number] 2000ug Take 1 [facility] min 1-29 tablet by [facility] of (VITAMIN 00:00: mouth [place] B-12) 2,000 00 daily. [facility] tablet [facility] cyanocobala 2020-07 Yes [id number] 2000ug Take 1 [facility] min 1-29 tablet by [facility] of (VITAMIN 00:00: mouth [place] B-12) 2,000 00 daily. [facility] tablet [facility] cyanocobala 2020-07 Yes [id number] 2000ug Take 1 [facility] min 1-29 tablet by [facility] of (VITAMIN 00:00: mouth [place] B-12) 2,000 00 daily. [facility] m[facility] tablet [facility] cyanocobala 2020-07 Yes [id number] 2000ug Take 1 [facility] min 1-29 tablet by [facility] of (VITAMIN 00:00: mouth [place] B-12) 2,000 00 daily. [facility] m[facility] tablet [facility] clindamycin 2020-07 Yes [id number] Apply to [facility] 1 % gel 1-17 affected ity of 00:00: area(s) 2 [place] 00 (two) Medical times [facility] daily. clindamycin 2020-07 Yes [id number] Apply to [facility] 1 % gel 1-17 affected ity of 00:00: area(s) 2 [place] 00 (two) Medical times [facility] daily. clindamycin 2020-07 Yes [id number] Apply to [facility] 1 % gel 1-17 affected ity of 00:00: area(s) 2 [place] 00 (two) Medical times [facility] daily. clindamycin 2020-07 Yes [id number] Apply to [facility] 1 % gel 1-17 affected ity of 00:00: area(s) 2 [place] 00 (two) Medical times [facility] daily. clindamycin 2020-07 Yes [id number] Apply to [facility] 1 % gel 1-17 affected ity of 00:00: area(s) 2 [place] 00 (two) Medical times [facility] daily. clindamycin 2020-07 Yes [id number] Apply to [facility] 1 % gel 1-17 affected ity of 00:00: area(s) 2 [place] 00 (two) Medical times [facility] daily. clindamycin 2020-07 Yes [id number] Apply to [facility] 1 % gel 1-17 affected ity of 00:00: area(s) 2 [place] 00 (two) Medical times [facility] daily. clindamycin 2020-07 Yes [id number] Apply to [facility] 1 % gel 1-17 affected ity of 00:00: area(s) 2 [place] 00 (two) Medical times [facility] daily. clindamycin 2020-07 Yes [id number] Apply to [facility] 1 % gel 1-17 affected ity of 00:00: area(s) 2 [place] 00 (two) Medical times [facility] daily. clindamycin 2020-07 Yes [id number] Apply to [facility] 1 % gel 1-17 affected ity of 00:00: area(s) 2 [place] 00 (two) Medical times [facility] daily. clindamycin 2020-07 Yes [id number] Apply to [facility] 1 % gel 1-17 affected ity of 00:00: area(s) 2 [place] 00 (two) Medical times [facility] daily. clindamycin 2020-07 Yes [id number] Apply to [facility] 1 % gel 1-17 affected ity of 00:00: area(s) 2 [place] 00 (two) Medical times [facility] daily. clindamycin 2020-07 Yes [id number] Apply to [facility] 1 % gel 1-17 affected ity of 00:00: area(s) 2 [place] 00 (two) Medical times [facility] daily. clindamycin 2020-07 Yes [id number] Apply to [facility] 1 % gel 1-17 affected ity of 00:00: area(s) 2 [place] 00 (two) Medical times [facility] daily. clindamycin 2020-07 Yes [id number] Apply to [facility] 1 % gel 1-17 affected ity of 00:00: area(s) 2 [place] 00 (two) Medical times [facility] daily. clindamycin 2020-07 Yes [id number] Apply to [facility] 1 % gel 1-17 affected ity of 00:00: area(s) 2 [place] 00 (two) Medical times [facility] daily. clindamycin 2020-07 Yes [id number] Apply to [facility] 1 % gel 1-17 affected ity of 00:00: area(s) 2 [place] 00 (two) Medical times [facility] daily. clindamycin 2020-07 Yes [id number] Apply to [facility] 1 % gel 1-17 affected ity of 00:00: area(s) 2 [place] 00 (two) Medical times [facility] daily. clindamycin 2020-07 Yes [id number] Apply to [facility] 1 % gel 1-17 affected ity of 00:00: area(s) 2 [place] 00 (two) Medical times [facility] daily. clindamycin 2020-07 Yes [id number] Apply to [facility] 1 % gel 1-17 affected ity of 00:00: area(s) 2 [place] 00 (two) Medical times [facility] daily. clindamycin 2020-07 Yes [id number] Apply to [facility] 1 % gel 1-17 affected ity of 00:00: area(s) 2 [place] 00 (two) Medical times [facility] daily. clindamycin 2020-07 Yes [id number] Apply to [facility] 1 % gel 1-17 affected ity of 00:00: area(s) 2 [place] 00 (two) Medical times [facility] daily. clindamycin 2020-07 Yes [id number] Apply to [facility] 1 % gel 1-17 affected ity of 00:00: area(s) 2 [place] 00 (two) Medical times [facility] daily. clindamycin 2020-07 Yes [id number] Apply to [facility] 1 % gel 1-17 affected ity of 00:00: area(s) 2 [place] 00 (two) Medical times [facility] daily. clindamycin 2020-07 Yes [id number] Apply to [facility] 1 % gel 1-17 affected ity of 00:00: area(s) 2 [place] 00 (two) Medical times [facility] daily. clindamycin 2020-07 Yes [id number] Apply to [facility] 1 % gel 1-17 affected ity of 00:00: area(s) 2 [place] 00 (two) Medical times [facility] daily. clindamycin 2020-07 Yes [id number] Apply to [facility] 1 % gel 1-17 affected ity of 00:00: area(s) 2 [place] 00 (two) Medical times [facility] daily. clindamycin 2020-07 Yes [id number] Apply to [facility] 1 % gel 1-17 affected ity of 00:00: area(s) 2 [place] 00 (two) Medical times [facility] daily. clindamycin 2020-07 Yes [id number] Apply to [facility] 1 % gel 1-17 affected ity of 00:00: area(s) 2 [place] 00 (two) Medical times [facility] daily. clindamycin 2020-07 Yes [id number] Apply to [facility] 1 % gel 1-17 affected ity of 00:00: area(s) 2 [place] 00 (two) Medical times Branch daily. clindamycin 2020-07 Yes [id number] Apply to [facility] 1 % gel 1-17 affected ity of 00:00: area(s) 2 [place] 00 (two) Medical times [facility] daily. clindamycin 2020-07 Yes [id number] Apply to [facility] 1 % gel 1-17 affected ity of 00:00: area(s) 2 [place] 00 (two) Medical times [facility] daily. clindamycin 2020-07 Yes [id number] Apply to [facility] 1 % gel 1-17 affected ity of 00:00: area(s) 2 [place] 00 (two) Medical times [facility] daily. clindamycin 2020-07 Yes [id number] Apply to [facility] 1 % gel 1-17 affected ity of 00:00: area(s) 2 [place] 00 (two) Medical times [facility] daily. clindamycin 2020-07 Yes [id number] Apply to [facility] 1 % gel 1-17 affected ity of 00:00: area(s) 2 [place] 00 (two) Medical times [facility] daily. clindamycin 2020-07 Yes [id number] Apply to [facility] 1 % gel 1-17 affected ity of 00:00: area(s) 2 [place] 00 (two) Medical times [facility] daily. clindamycin 2020-07 Yes [id number] Apply to [facility] 1 % gel 1-17 affected ity of 00:00: area(s) 2 [place] 00 (two) Medical times [facility] daily. clindamycin 2020-07 Yes [id number] Apply to [facility] 1 % gel 1-17 affected ity of 00:00: area(s) 2 [place] 00 (two) Medical times [facility] daily. clindamycin 2020-07 Yes [id number] Apply to [facility] 1 % gel 1-17 affected ity of 00:00: area(s) 2 [place] 00 (two) Medical times [facility] daily. clindamycin 2020-07 Yes [id number] Apply to [facility] 1 % gel 1-17 affected ity of 00:00: area(s) 2 [place] 00 (two) Medical times [facility] daily. clindamycin 2020-07 Yes [id number] Apply to [facility] 1 % gel 1-17 affected ity of 00:00: area(s) 2 [place] 00 (two) Medical times [facility] daily. clindamycin 2020-07 Yes [id number] Apply to [facility] 1 % gel 1-17 affected ity of 00:00: area(s) 2 [place] 00 (two) Medical times [facility] daily. clindamycin 2020-07 Yes [id number] Apply to [facility] 1 % gel 1-17 affected ity of 00:00: area(s) 2 [place] 00 (two) Medical times [facility] daily. clindamycin 2020-07 Yes [id number] Apply to [facility] 1 % gel 1-17 affected ity of 00:00: area(s) 2 [place] 00 (two) Medical times [facility] daily. clindamycin 2020-07 Yes [id number] Apply to [facility] 1 % gel 1-17 affected ity of 00:00: area(s) 2 [place] 00 (two) Medical times [facility] daily. clindamycin 2020-07 Yes [id number] Apply to [facility] 1 % gel 1-17 affected ity of 00:00: area(s) 2 [place] 00 (two) Medical times [facility] daily. clindamycin 2020-07 Yes [id number] Apply to [facility] 1 % gel 1-17 affected ity of 00:00: area(s) 2 [place] 00 (two) Medical times [facility] daily. clindamycin 2020-07 Yes [id number] Apply to [facility] 1 % gel 1-17 affected ity of 00:00: area(s) 2 [place] 00 (two) Medical times [facility] daily. clindamycin 2020-07 Yes [id number] Apply to [facility] 1 % gel 1-17 affected ity of 00:00: area(s) 2 [place] 00 (two) Medical times [facility] daily. clindamycin 2020-07 Yes [id number] Apply to [facility] 1 % gel 1-17 affected ity of 00:00: area(s) 2 [place] 00 (two) Medical times [facility] daily. clindamycin 2020-07 Yes [id number] Apply to [facility] 1 % gel 1-17 affected ity of 00:00: area(s) 2 [place] 00 (two) Medical times [facility] daily. clindamycin 2020-07 Yes [id number] Apply to [facility] 1 % gel 1-17 affected ity of 00:00: area(s) 2 [place] 00 (two) Medical times [facility] daily. clindamycin 2020-07 Yes [id number] Apply to [facility] 1 % gel 1-17 affected ity of 00:00: area(s) 2 [place] 00 (two) Medical times [facility] daily. clindamycin 2020-07 Yes [id number] Apply to [facility] 1 % gel 1-17 affected ity of 00:00: area(s) 2 [place] 00 (two) Medical times [facility] daily. clindamycin 2020-07 Yes [id number] Apply to [facility] 1 % gel 1-17 affected ity of 00:00: area(s) 2 [place] 00 (two) Medical times [facility] daily. clindamycin 2020-07 Yes [id number] Apply to [facility] 1 % gel 1-17 affected ity of 00:00: area(s) 2 [place] 00 (two) Medical times [facility] daily. clindamycin 2020-07 Yes [id number] Apply to [facility] 1 % gel 1-17 affected ity of 00:00: area(s) 2 [place] 00 (two) Medical times [facility] daily. clindamycin 2020-07 Yes [id number] Apply to [facility] 1 % gel 1-17 affected ity of 00:00: area(s) 2 [place] 00 (two) Medical times [facility] daily. clindamycin 2020-07 Yes [id number] Apply to [facility] 1 % gel 1-17 affected ity of 00:00: area(s) 2 [place] 00 (two) Medical times [facility] daily. clindamycin 2020-07 Yes [id number] Apply to [facility] 1 % gel 1-17 affected ity of 00:00: area(s) 2 [place] 00 (two) Medical times [facility] daily. clindamycin 2021-1 Yes [id number] Apply to [facility] 1 % gel 1-17 affected ity of 00:00: area(s) 2 [place] 00 (two) Medical times [facility] daily. clindamycin 2020-07 Yes [id number] Apply to [facility] 1 % gel 1-17 affected ity of 00:00: area(s) 2 [place] 00 (two) Medical times [facility] daily. clindamycin 2020-07 Yes [id number] Apply to [facility] 1 % gel 1-17 affected ity of 00:00: area(s) 2 [place] 00 (two) Medical times [facility] daily. clindamycin 2020-07 Yes [id number] Apply to [facility] 1 % gel 1-17 affected ity of 00:00: area(s) 2 [place] 00 (two) Medical times [facility] daily. clindamycin 2020-07 Yes [id number] Apply to [facility] 1 % gel 1-17 affected ity of 00:00: area(s) 2 [place] 00 (two) Medical times [facility] daily. clindamycin 2020-07 Yes [id number] Apply to [facility] 1 % gel 1-17 affected ity of 00:00: area(s) 2 [place] 00 (two) Medical times [facility] daily. clindamycin 2020-07 Yes [id number] Apply to [facility] 1 % gel 1-17 affected ity of 00:00: area(s) 2 [place] 00 (two) Medical times [facility] daily. clindamycin 2020-07 Yes [id number] Apply to [facility] 1 % gel 1-17 affected ity of 00:00: area(s) 2 [place] 00 (two) Medical times [facility] daily. clindamycin 2020-07 Yes [id number] Apply to [facility] 1 % gel 1-17 affected ity of 00:00: area(s) 2 [place] 00 (two) Medical times [facility] daily. clindamycin 2020-07 Yes [id number] Apply to [facility] 1 % gel 1-17 affected ity of 00:00: area(s) 2 [place] 00 (two) Medical times [facility] daily. clindamycin 2020-07 Yes [id number] Apply to [facility] 1 % gel 1-17 affected ity of 00:00: area(s) 2 [place] 00 (two) Medical times [facility] daily. clindamycin 2020-07 Yes [id number] Apply to [facility] 1 % gel 1-17 affected ity of 00:00: area(s) 2 [place] 00 (two) Medical times [facility] daily. clindamycin 2020-07 Yes [id number] Apply to [facility] 1 % gel 1-17 affected ity of 00:00: area(s) 2 [place] 00 (two) Medical times [facility] daily. clindamycin 2020-07 Yes [id number] Apply to [facility] 1 % gel 1-17 affected ity of 00:00: area(s) 2 [place] 00 (two) Medical times [facility] daily. clindamycin 2020-07 Yes [id number] Apply to [facility] 1 % gel 1-17 affected ity of 00:00: area(s) 2 [place] 00 (two) Medical times [facility] daily. clindamycin 2020-07 Yes [id number] Apply to [facility] 1 % gel 1-17 affected ity of 00:00: area(s) 2 [place] 00 (two) Medical times [facility] daily. clindamycin 2020-07 Yes [id number] Apply to [facility] 1 % gel 1-17 affected ity of 00:00: area(s) 2 [place] 00 (two) Medical times [facility] daily. clindamycin 2020-07 Yes [id number] Apply to [facility] 1 % gel 1-17 affected ity of 00:00: area(s) 2 [place] 00 (two) Medical times [facility] daily. clindamycin 2020-07 Yes [id number] Apply to [facility] 1 % gel 1-17 affected ity of 00:00: area(s) 2 [place] 00 (two) Medical times [facility] daily. clindamycin 2020-07 Yes [id number] Apply to [facility] 1 % gel 1-17 affected ity of 00:00: area(s) 2 [place] 00 (two) Medical times [facility] daily. clindamycin 2020-07 Yes [id number] Apply to [facility] 1 % gel 1-17 affected ity of 00:00: area(s) 2 [place] 00 (two) Medical times [facility] daily. clindamycin 2020-07 Yes [id number] Apply to [facility] 1 % gel 1-17 affected ity of 00:00: area(s) 2 [place] 00 (two) Medical times [facility] daily. clindamycin 2020-07 Yes [id number] Apply to [facility] 1 % gel 1-17 affected ity of 00:00: area(s) 2 [place] 00 (two) Medical times [facility] daily. clindamycin 2020-07 Yes [id number] Apply to [facility] 1 % gel 1-17 affected ity of 00:00: area(s) 2 [place] 00 (two) Medical times [facility] daily. clindamycin 2020-07 Yes [id number] Apply to [facility] 1 % gel 1-17 affected ity of 00:00: area(s) 2 [place] 00 (two) Medical times [facility] daily. clindamycin 2020-07 Yes [id number] Apply to [facility] 1 % gel 1-17 affected ity of 00:00: area(s) 2 [place] 00 (two) Medical times [facility] daily. clindamycin 2020-07 Yes [id number] Apply to [facility] 1 % gel 1-17 affected ity of 00:00: area(s) 2 [place] 00 (two) Medical times [facility] daily. clindamycin 2020-07 Yes [id number] Apply to [facility] 1 % gel 1-17 affected ity of 00:00: area(s) 2 [place] 00 (two) Medical times [facility] daily. clindamycin 2020-07 Yes [id number] Apply to [facility] 1 % gel 1-17 affected ity of 00:00: area(s) 2 [place] 00 (two) Medical times [facility] daily. clindamycin 2020-07 Yes [id number] Apply to [facility] 1 % gel 1-17 affected ity of 00:00: area(s) 2 [place] 00 (two) Medical times [facility] daily. clindamycin 2020-07 Yes [id number] Apply to [facility] 1 % gel 1-17 affected ity of 00:00: area(s) 2 [place] 00 (two) Medical times [facility] daily. clindamycin 2020-07 Yes [id number] Apply to [facility] 1 % gel 1-17 affected ity of 00:00: area(s) 2 [place] 00 (two) Medical times [facility] daily. clindamycin 2020-07 Yes [id number] Apply to [facility] 1 % gel 1-17 affected ity of 00:00: area(s) 2 [place] 00 (two) Medical times [facility] daily. clindamycin 2020-07 Yes [id number] Apply to [facility] 1 % gel 1-17 affected ity of 00:00: area(s) 2 [place] 00 (two) Medical times [facility] daily. clindamycin 2020-07 Yes [id number] Apply to [facility] 1 % gel 1-17 affected ity of 00:00: area(s) 2 [place] 00 (two) Medical times Branch daily. semaglutide 2020-07- No [id number] 7mg Take 7 mg [facility] (RYBELSUS) 1-17 05-11 by mouth ity of 7 mg Tab 00:00: 00:00 daily. [place] 00 :00 Medical [facility] hydrocortis 2020-07 Yes [id number] Apply to [facility] one 2.5 % 1-10 affected ity of ointment 00:00: area(s) 2 [place] 00 (two) Medical times [facility] daily as needed for Rash (skin folds). clotrimazol 2020-07 Yes [id number] 1{dose} Apply 1 [facility] e 1 % 1-10 Dose to ity of ointment 00:00: [place](s[place] 2 [place] (two) Medical times [facility] daily as needed for Rash (skin folds). fluorouraci 2020-07 Yes [id number] [facility] to [facility] cream 1-10 area(s) at [facility] of 00:00: bedtime as [place] 00 needed Medical (wart). Branch hydrocortis 2020-07 Yes [id number] [facility] to [facility] 2.5 % 1-10 affected [facility] [facility]:[place] [facility] times [facility] daily as needed for Rash (skin folds). clotrimazol 2020-07 Yes [id number] 1{dose} Apply 1 [facility] 1 % 1-10 Dose to [facility]:[place] [facility] times [facility] daily as needed for Rash (skin folds). fluorouraci 2020-07 Yes [id number] Apply to [facility] 5 % cream 1-10 area(s) at [facility] of 00:00: bedtime as [place] 00 needed Medical (wart). Branch hydrocortis 2020-07 Yes [id number] Apply to [facility] 2.5 % 1-10 affected [facility]:[place] [facility] times [facility] daily as needed for Rash (skin folds). clotrimazol 2020-07 Yes [id number] 1{dose} Apply 1 [facility] 1 % 1-10 Dose to [facility] [facility] times [facility] daily as needed for Rash (skin folds). fluorouraci 2020-07 Yes [id number] Apply to [facility] 5 % cream 1-10 area(s) at [facility] of 00:00: bedtime as [place] 00 needed Medical (wart). Branch hydrocortis 2020-07 Yes [id number] Apply to [facility] 2.5 % 1-10 affected [facility]:[place] [facility] times [facility] daily as needed for Rash (skin folds). clotrimazol 2020-07 Yes [id number] 1{dose} Apply 1 [facility] 1 % 1-10 Dose to [facility]: [place] ([place] [facility] times [facility] daily as needed for Rash (skin folds). fluorouraci 2020-07 Yes [id number] Apply to [facility] 5 % cream 1-10 area(s) at [facility] of 00:00: bedtime as [place] 00 needed Medical (wart). Branch hydrocortis 2020-07 Yes [id number] Apply to [facility] 2.5 % 1-10 affected [facility] ([place] [facility] times [facility] daily as needed for Rash (skin folds). clotrimazol 2020-07 Yes [id number] 1{dose} Apply 1 [facility] 1 % 1-10 Dose to [facility] 00:[facility]: [place] ([place] [facility] times [facility] daily as needed for Rash (skin folds). fluorouraci 2020-07 Yes [id number] Apply to [facility] 5 % cream 1-10 area(s) at [facility] of 00:00: bedtime as [place] 00 needed Medical (wart). Branch hydrocortis 2020-07 Yes [id number] Apply to [facility] 2.5 % 1-10 affected [facility]: [place] ([place] [facility] times [facility] daily as needed for Rash (skin folds). clotrimazol 2020-07 Yes [id number] 1{dose} Apply 1 [facility] 1 % 1-10 Dose to [facility] 00:[facility]: [place] ([place] [facility] times [facility] daily as needed for Rash (skin folds). fluorouraci 2020-07 Yes [id number] Apply to [facility] 5 % cream 1-10 area(s) at [facility] of 00:00: bedtime as [place] 00 needed Medical (wart). Branch hydrocortis 2020-07 Yes [id number] Apply to [facility] 2.5 % 1-10 affected [facility]: [place] ([place] [facility] times [facility] daily as needed for Rash (skin folds). clotrimazol 2020-07 Yes [id number] 1{dose} Apply 1 [facility] 1 % 1-10 Dose to [facility] 00:00: [place] ([place] [facility] times [facility] daily as needed for Rash (skin folds). fluorouraci 2020-07 Yes [id number] Apply to [facility] 5 % cream 1-10 area(s) at [facility] of 00:00: bedtime as [place] 00 needed Medical (wart). [facility] hydrocortis 2020-07 Yes [id number] Apply to [facility] 2.5 % 1-10 affected [facility] 00:00: [place] ([facility] [facility] times [facility] daily as needed for Rash (skin folds). clotrimazol 2020-07 Yes [id number] 1{dose} Apply 1 [facility] 1 % 1-10 Dose to [facility] 00:00: [place] (two[place] [facility] times [facility] daily as needed for Rash (skin folds). fluorouraci 2020-07 Yes [id number] Apply to [facility] 5 % cream 1-10 area(s) at [facility] of 00:00: bedtime as [place] 00 needed Medical (wart). Branch hydrocortis 2020-07 Yes [id number] Apply to [facility] 2.5 % 1-10 affected [facility] o[facility] 00:00: [place] ([place] [facility] times [facility] daily as needed for Rash (skin folds). clotrimazol 2020-07 Yes [id number] 1{dose} Apply 1 [facility] 1 % 1-10 Dose to [facility]int[facility] 00:00: [place] (two[place] [facility] times [facility] daily as needed for Rash (skin folds). fluorouraci 2020-07 Yes [id number] Apply to [facility] 5 % cream 1-10 area(s) at [facility] of 00:00: bedtime as [place] 00 needed Medical (wart). Branch hydrocortis 2020-07 Yes [id number] Apply to [facility] 2.5 % 1-10 affected [facility] o[facility] 00:00: [place] (two[place] [facility] times [facility] daily as needed for Rash (skin folds). clotrimazol 2020-07 Yes [id number] 1{dose} Apply 1 [facility] 1 % 1-10 Dose to [facility] oint[facility] 00:00: [place] (two[place] [facility] times [facility] daily as needed for Rash (skin folds). fluorouraci 2020-07 Yes [id number] Apply to [facility] 5 % cream 1-10 area(s) at [facility] y of 00:00: bedtime as [place] 00 needed Medical (wart). Branch hydrocortis 2020-07 Yes [id number] Apply to [facility] 2.5 % 1-10 affected [facility] o[facility] 00:00: [place] (two[place] [facility] times [facility] daily as needed for Rash (skin folds). clotrimazol 2020-07 Yes [id number] 1{dose} Apply 1 [facility] 1 % 1-10 Dose to [facility]int[facility] 00:00: [place] (two[place] [facility] times [facility] daily as needed for Rash (skin folds). fluorouraci 2020-07 Yes [id number] Apply to [facility] 5 % cream 1-10 area(s) at [facility] of 00:00: bedtime as [place] 00 needed Medical (wart). Branch hydrocortis 2020-07 Yes [id number] Apply to [facility] 2.5 % 1-10 affected [facility] o[facility] 00:00: [place] (two[place] [facility] times [facility] daily as needed for Rash (skin folds). clotrimazol 2020-07 Yes [id number] 1{dose} Apply 1 [facility] 1 % 1-10 Dose to [facility] oint[facility] 00:00: [place] (two[place] [facility] times [facility] daily as needed for Rash (skin folds). fluorouraci 2020-07 Yes [id number] Apply to [facility] 5 % cream 1-10 area(s) at [facility] y of 00:00: bedtime as [place] 00 needed Medical (wart). Branch hydrocortis 2020-07 Yes [id number] Apply to [facility] 2.5 % 1-10 affected [facility] oint[facility] 00:00: [place] (two[place] [facility] times [facility] daily as needed for Rash (skin folds). clotrimazol 2020-07 Yes [id number] 1{dose} Apply 1 [facility] 1 % 1-10 Dose to [facility] oint[facility] 00:00: [place] (two[place] [facility] times [facility] daily as needed for Rash (skin folds). fluorouraci 2020-07 Yes [id number] Apply to [facility] 5 % cream 1-10 area(s) at [facility] y of 00:00: bedtime as [place] 00 needed Medical (wart). Branch hydrocortis 2020-07 Yes [id number] Apply to [facility] 2.5 % 1-10 affected [facility] oint[facility] 00:00: [place] (two[place] [facility] times [facility] daily as needed for Rash (skin folds). clotrimazol 2020-07 Yes [id number] 1{dose} Apply 1 [facility] 1 % 1-10 Dose to [facility] oint[facility] 00:00: [place] (two[place] [facility] times [facility] daily as needed for Rash (skin folds). fluorouraci 2020-07 Yes [id number] Apply to [facility] 5 % cream 1-10 area(s) at [facility] y of 00:00: bedtime as [place] 00 needed Medical (wart). Branch hydrocortis 2020-07 Yes [id number] Apply to [facility] 2.5 % 1-10 affected [facility] oint[facility] 00:00: [place] (two[place] [facility] times [facility] daily as needed for Rash (skin folds). clotrimazol 2020-07 Yes [id number] 1{dose} Apply 1 [facility] 1 % 1-10 Dose to [facility] ointment 00:00: [place] (two[place] [facility] times [facility] daily as needed for Rash (skin folds). fluorouraci 2020-07 Yes [id number] Apply to [facility] 5 % cream 1-10 area(s) at [facility] y of 00:00: bedtime as [place] 00 needed Medical (wart). Branch hydrocortis 2020-07 Yes [id number] Apply to [facility] 2.5 % 1-10 affected [facility] oint[facility] 00:00: [place] (two[place] [facility] times [facility] daily as needed for Rash (skin folds). clotrimazol 2020-07 Yes [id number] 1{dose} Apply 1 [facility] 1 % 1-10 Dose to [facility] oint[facility] 00:00: [place] (two) [facility] times [facility] daily as needed for Rash (skin folds). fluorouraci 2020-07 Yes [id number] Apply to [facility] 5 % cream 1-10 area(s) at [facility] y of 00:00: bedtime as [place] 00 needed Medical (wart). Branch hydrocortis 2020-07 Yes [id number] Apply to [facility] 2.5 % 1-10 affected [facility] oint[facility] 00:00: [place] (two[place] [facility] times [facility] daily as needed for Rash (skin folds). clotrimazol 2020-07 Yes [id number] 1{dose} Apply 1 [facility] 1 % 1-10 Dose to [facility] oint[facility] 00:00: [place] (two[place] [facility] times [facility] daily as needed for Rash (skin folds). fluorouraci 2020-07 Yes [id number] Apply to [facility] 5 % cream 1-10 area(s) at [facility] y of 00:00: bedtime as [place] 00 needed Medical (wart). Branch hydrocortis 2020-07 Yes [id number] Apply to [facility] 2.5 % 1-10 affected [facility] ointment 00:00: [place] (two[place] [facility] times [facility] daily as needed for Rash (skin folds). clotrimazol 2020-07 Yes [id number] 1{dose} Apply 1 [facility] 1 % 1-10 Dose to [facility] ointment 00:00: [place] (two[place] [facility] times [facility] daily as needed for Rash (skin folds). fluorouraci 2020-07 Yes [id number] Apply to [facility] 5 % cream 1-10 area(s) at [facility] y of 00:00: bedtime as [place] 00 needed Medical (wart). Branch hydrocortis 2020-07 Yes [id number] Apply to [facility] 2.5 % 1-10 affected [facility] ointment 00:00: [place] (two) [facility] times [facility] daily as needed for Rash (skin folds). clotrimazol 2020-07 Yes [id number] 1{dose} Apply 1 [facility] 1 % 1-10 Dose to [facility] ointment 00:00: [place] (two) [facility] times [facility] daily as needed for Rash (skin folds). fluorouraci 2020-07 Yes [id number] Apply to [facility] 5 % cream 1-10 area(s) at [facility] y of 00:00: bedtime as [place] 00 needed Medical (wart). Branch hydrocortis 2020-07 Yes [id number] Apply to [facility] 2.5 % 1-10 affected [facility] of ointment 00:00: [place] (two) [facility] times [facility] daily as needed for Rash (skin folds). clotrimazol 2020-07 Yes [id number] 1{dose} Apply 1 [facility] 1 % 1-10 Dose to [facility] of ointment 00:00: [place](s[place] (two) [facility] times [facility] daily as needed for Rash (skin folds). fluorouraci 2020-07 Yes [id number] Apply to [facility] 5 % cream 1-10 area(s) at it y of 00:00: bedtime as [place] 00 needed Medical (wart). Branch hydrocortis 2020-07 Yes [id number] Apply to [facility] 2.5 % 1-10 affected [facility] of ointment 00:00: [place] (two) [facility] times [facility] daily as needed for Rash (skin folds). clotrimazol 2020-07 Yes [id number] 1{dose} Apply 1 [facility] 1 % 1-10 Dose to [facility] of ointment 00:00: [place](s[place] (two) [facility] times [facility] daily as needed for Rash (skin folds). fluorouraci 2020-07 Yes [id number] Apply to [facility] 5 % cream 1-10 area(s) at it y of 00:00: bedtime as [place] 00 needed Medical (wart). Branch hydrocortis 2020-07 Yes [id number] Apply to [facility] 2.5 % 1-10 affected [facility] of ointment 00:00: [place] (two) [facility] times [facility] daily as needed for Rash (skin folds). clotrimazol 2020-07 Yes [id number] 1{dose} Apply 1 [facility] 1 % 1-10 Dose to [facility] of ointment 00:00: [place](s[place] (two) [facility] times [facility] daily as needed for Rash (skin folds). fluorouraci 2020-07 Yes [id number] Apply to [facility] 5 % cream 1-10 area(s) at it y of 00:00: bedtime as [place] 00 needed Medical (wart). Branch hydrocortis 2020-07 Yes [id number] Apply to [facility] 2.5 % 1-10 affected [facility] of ointment 00:00: [place](s[place] (two[place] [facility] times [facility] daily as needed for Rash (skin folds). clotrimazol 2020-07 Yes [id number] 1{dose} Apply 1 [facility] 1 % 1-10 Dose to [facility] of ointment 00:00: [place](s[place] (two[place] [facility] times [facility] daily as needed for Rash (skin folds). fluorouraci 2020-07 Yes [id number] Apply to [facility] 5 % cream 1-10 area(s) at it y of 00:00: bedtime as [place] 00 needed Medical (wart). Branch hydrocortis 2020-07 Yes [id number] Apply to [facility] 2.5 % 1-10 affected [facility] of ointment 00:00: [place](s[place] (two) [facility] times [facility] daily as needed for Rash (skin folds). clotrimazol 2020-07 Yes [id number] 1{dose} Apply 1 [facility] 1 % 1-10 Dose to [facility] of ointment 00:00: [place](s[place] (two) Medical times [facility] daily as needed for Rash (skin folds). fluorouraci 2020-07 Yes [id number] Apply to [facility] L 5 % cream 1-10 area(s) at it y of 00:00: bedtime as [place] 00 needed Medical (wart). Branch hydrocortis 2020-07 Yes [id number] Apply to [facility] 2.5 % 1-10 affected [facility] of ointment 00:00: [place] (two) [facility] times [facility] daily as needed for Rash (skin folds). clotrimazol 2020-07 Yes [id number] 1{dose} Apply 1 [facility] 1 % 1-10 Dose to [facility] of ointment 00:00: [place](s[place] (two) Medical times [facility] daily as needed for Rash (skin folds). fluorouraci 2020-07 Yes [id number] Apply to [facility] 5 % cream 1-10 area(s) at it y of 00:00: bedtime as [place] 00 needed Medical (wart). Branch hydrocortis 2020-07 Yes [id number] Apply to [facility] 2.5 % 1-10 affected [facility] of ointment 00:00: [place] (two) [facility] times [facility] daily as needed for Rash (skin folds). clotrimazol 2020-07 Yes [id number] 1{dose} Apply 1 [facility] 1 % 1-10 Dose to [facility] of ointment 00:00: [place](s[place] (two) [facility] times [facility] daily as needed for Rash (skin folds). fluorouraci 2020-07 Yes [id number] Apply to [facility] 5 % cream 1-10 area(s) at it y of 00:00: bedtime as [place] 00 needed Medical (wart). Branch hydrocortis 2020-07 Yes [id number] Apply to [facility] 2.5 % 1-10 affected [facility]y of ointment 00:00: [place](s[place] (two) [facility] times [facility] daily as needed for Rash (skin folds). clotrimazol 2020-07 Yes [id number] 1{dose} Apply 1 [facility] 1 % 1-10 Dose to [facility] of ointment 00:00: [place](s[place] (two) [facility] times [facility] daily as needed for Rash (skin folds). fluorouraci 2020-07 Yes [id number] Apply to [facility] L 5 % cream 1-10 area(s) at it y of 00:00: bedtime as [place] 00 needed Medical (wart). Branch hydrocortis 2020-07 Yes [id number] Apply to [facility] 2.5 % 1-10 affected [facility]y of ointment 00:00: [place] (two) [facility] times [facility] daily as needed for Rash (skin folds). clotrimazol 2020-07 Yes [id number] 1{dose} Apply 1 [facility] 1 % 1-10 Dose to [facility] of ointment 00:00: [place](s[place] (two) [facility] times [facility] daily as needed for Rash (skin folds). fluorouraci 2020-07 Yes [id number] Apply to [facility] L 5 % cream 1-10 area(s) at it y of 00:00: bedtime as [place] 00 needed Medical (wart). Branch hydrocortis 2020-07 Yes [id number] Apply to [facility] 2.5 % 1-10 affected [facility] of ointment 00:00: [place](s[place] (two) [facility] times [facility] daily as needed for Rash (skin folds). clotrimazol 2020-07 Yes [id number] 1{dose} Apply 1 [facility] 1 % 1-10 Dose to [facility] of ointment 00:00: [place](s[place] (two) [facility] times [facility] daily as needed for Rash (skin folds). fluorouraci 2020-07 Yes [id number] Apply to [facility] L 5 % cream 1-10 area(s) at it y of 00:00: bedtime as [place] 00 needed Medical (wart). Branch hydrocortis 2020-07 Yes [id number] Apply to [facility] 2.5 % 1-10 affected [facility]y of ointment 00:00: [place](s[place] (two) [facility] times [facility] daily as needed for Rash (skin folds). clotrimazol 2020-07 Yes [id number] 1{dose} Apply 1 [facility] 1 % 1-10 Dose to [facility] of ointment 00:00: [place](s[place] (two) [facility] times [facility] daily as needed for Rash (skin folds). fluorouraci 2020-07 Yes [id number] Apply to [facility] L 5 % cream 1-10 area(s) at it y of 00:00: bedtime as [place] 00 needed Medical (wart). Branch hydrocortis 2020-07 Yes [id number] Apply to [facility] 2.5 % 1-10 affected [facility] of ointment 00:00: [place](s[place] (two) [facility] times [facility] daily as needed for Rash (skin folds). clotrimazol 2020-07 Yes [id number] 1{dose} Apply 1 [facility] 1 % 1-10 Dose to [facility] of ointment 00:00: [place](s[place] (two) [facility] times [facility] daily as needed for Rash (skin folds). fluorouraci 2020-07 Yes [id number] Apply to [facility] 5 % cream 1-10 area(s) at [facility] y of 00:00: bedtime as [place] 00 needed Medical (wart). Branch hydrocortis 2020-07 Yes [id number] Apply to [facility] 2.5 % 1-10 affected [facility] of ointment 00:00: [place](s[place] (two) [facility] times [facility] daily as needed for Rash (skin folds). clotrimazol 2020-07 Yes [id number] 1{dose} Apply 1 [facility] 1 % 1-10 Dose to [facility] of ointment 00:00: [place](s[place] (two) [facility] times [facility] daily as needed for Rash (skin folds). fluorouraci 2020-07 Yes [id number] Apply to [facility] L 5 % cream 1-10 area(s) at it y of 00:00: bedtime as [place] 00 needed Medical (wart). Branch hydrocortis 2020-07 Yes [id number] Apply to [facility] 2.5 % 1-10 affected [facility] of ointment 00:00: [place] (two) [facility] times [facility] daily as needed for Rash (skin folds). clotrimazol 2020-07 Yes [id number] 1{dose} Apply 1 [facility] 1 % 1-10 Dose to [facility] of ointment 00:00: [place] (two) [facility] times [facility] daily as needed for Rash (skin folds). fluorouraci 2020-07 Yes [id number] Apply to [facility] L 5 % cream 1-10 area(s) at [facility] y of 00:00: bedtime as [place] 00 needed Medical (wart). Branch hydrocortis 2020-07 Yes [id number] Apply to [facility] 2.5 % 1-10 affected [facility] of ointment 00:00: [place](s[place] (two) [facility] times [facility] daily as needed for Rash (skin folds). clotrimazol 2020-07 Yes [id number] 1{dose} Apply 1 [facility] 1 % 1-10 Dose to [facility] of ointment 00:00: [place](s[place] (two) [facility] times [facility] daily as needed for Rash (skin folds). fluorouraci 2020-07 Yes [id number] Apply to [facility] L 5 % cream 1-10 area(s) at [facility] y of 00:00: bedtime as [place] 00 needed Medical (wart). Branch hydrocortis 2020-07 Yes [id number] Apply to [facility] 2.5 % 1-10 affected [facility] of ointment 00:00: [place] (two) [facility] times [facility] daily as needed for Rash (skin folds). clotrimazol 2020-07 Yes [id number] 1{dose} Apply 1 [facility] 1 % 1-10 Dose to [facility] of ointment 00:00: [place](s[place] (two) [facility] times [facility] daily as needed for Rash (skin folds). fluorouraci 2020-07 Yes [id number] Apply to [facility] L 5 % cream 1-10 area(s) at [facility] y of 00:00: bedtime as [place] 00 needed Medical (wart). Branch hydrocortis 2020-07 Yes [id number] Apply to [facility] 2.5 % 1-10 affected [facility] ointment 00:00: [place] (two) [facility] times [facility] daily as needed for Rash (skin folds). clotrimazol 2020-07 Yes [id number] 1{dose} Apply 1 [facility] 1 % 1-10 Dose to [facility] of ointment 00:00: [place] (two) [facility] times [facility] daily as needed for Rash (skin folds). fluorouraci 2020-07 Yes [id number] Apply to [facility] L 5 % cream 1-10 area(s) at [facility] y of 00:00: bedtime as [place] 00 needed Medical (wart). Branch hydrocortis 2020-07 Yes [id number] Apply to [facility] 2.5 % 1-10 affected [facility] of ointment 00:00: [place] (two) [facility] times [facility] daily as needed for Rash (skin folds). clotrimazol 2020-07 Yes [id number] 1{dose} Apply 1 [facility] 1 % 1-10 Dose to [facility] ointment 00:00: [place] (two) [facility] times [facility] daily as needed for Rash (skin folds). fluorouraci 2020-07 Yes [id number] Apply to [facility] L 5 % cream 1-10 area(s) at [facility] y of 00:00: bedtime as [place] 00 needed Medical (wart). Branch hydrocortis 2020-07 Yes [id number] Apply to [facility] 2.5 % 1-10 affected [facility] ointment 00:00: [place] (two[place] [facility] times [facility] daily as needed for Rash (skin folds). clotrimazol 2020-07 Yes [id number] 1{dose} Apply 1 [facility] 1 % 1-10 Dose to [facility] of ointment 00:00: [place] (two) [facility] times [facility] daily as needed for Rash (skin folds). fluorouraci 2020-07 Yes [id number] Apply to [facility] L 5 % cream 1-10 area(s) at it y of 00:00: bedtime as [place] 00 needed Medical (wart). Branch hydrocortis 2020-07 Yes [id number] Apply to [facility] 2.5 % 1-10 affected [facility] of ointment 00:00: [place] (two) [facility] times [facility] daily as needed for Rash (skin folds). clotrimazol 2020-07 Yes [id number] 1{dose} Apply 1 [facility] 1 % 1-10 Dose to [facility] of ointment 00:00: [place](s[place] (two) [facility] times [facility] daily as needed for Rash (skin folds). fluorouraci 2020-07 Yes [id number] Apply to [facility] 5 % cream 1-10 area(s) at [facility] y of 00:00: bedtime as [place] 00 needed Medical (wart). Branch hydrocortis 2020-07 Yes [id number] Apply to [facility] 2.5 % 1-10 affected [facility] of ointment 00:00: [place] (two[place] [facility] times [facility] daily as needed for Rash (skin folds). clotrimazol 2020-07 Yes [id number] 1{dose} Apply 1 [facility] 1 % 1-10 Dose to [facility] of ointment 00:00: [place] (two) [facility] times [facility] daily as needed for Rash (skin folds). fluorouraci 2020-07 Yes [id number] Apply to [facility] L 5 % cream 1-10 area(s) at [facility] y of 00:00: bedtime as [place] 00 needed Medical (wart). Branch hydrocortis 2020-07 Yes [id number] Apply to [facility] 2.5 % 1-10 affected [facility] of ointment 00:00: [place] (two[place] [facility] times [facility] daily as needed for Rash (skin folds). clotrimazol 2020-07 Yes [id number] 1{dose} Apply 1 [facility] 1 % 1-10 Dose to [facility] of ointment 00:00: [place] (two) [facility] times [facility] daily as needed for Rash (skin folds). fluorouraci 2020-07 Yes [id number] Apply to [facility] L 5 % cream 1-10 area(s) at it y of 00:00: bedtime as [place] 00 needed Medical (wart). Branch hydrocortis 2020-07 Yes [id number] Apply to [facility] 2.5 % 1-10 affected [facility] of ointment 00:00: [place] (two[place] [facility] times [facility] daily as needed for Rash (skin folds). clotrimazol 2020-07 Yes [id number] 1{dose} Apply 1 [facility] 1 % 1-10 Dose to [facility] of ointment 00:00: [place] (two) [facility] times [facility] daily as needed for Rash (skin folds). fluorouraci 2020-07 Yes [id number] Apply to [facility] L 5 % cream 1-10 area(s) at it y of 00:00: bedtime as [place] 00 needed Medical (wart). Branch hydrocortis 2020-07 Yes [id number] Apply to [facility] 2.5 % 1-10 affected [facility] ointment 00:00: [place] (two[place] [facility] times [facility] daily as needed for Rash (skin folds). clotrimazol 2020-07 Yes [id number] 1{dose} Apply 1 [facility] 1 % 1-10 Dose to [facility] of ointment 00:00: [place] (two) [facility] times [facility] daily as needed for Rash (skin folds). fluorouraci 2020-07 Yes [id number] Apply to [facility] L 5 % cream 1-10 area(s) at it y of 00:00: bedtime as [place] 00 needed Medical (wart). Branch hydrocortis 2020-07 Yes [id number] Apply to [facility] 2.5 % 1-10 affected [facility] of ointment 00:00: [place] (two[place] [facility] times [facility] daily as needed for Rash (skin folds). clotrimazol 2020-07 Yes [id number] 1{dose} Apply 1 [facility] 1 % 1-10 Dose to [facility] of ointment 00:00: [place] (two[place] [facility] times [facility] daily as needed for Rash (skin folds). fluorouraci 2020-07 Yes [id number] Apply to [facility] L 5 % cream 1-10 area(s) at it y of 00:00: bedtime as [place] 00 needed Medical (wart). Branch hydrocortis 2020-07 Yes [id number] Apply to [facility] 2.5 % 1-10 affected [facility] ointment 00:00: [place] ([place] [facility] times [facility] daily as needed for Rash (skin folds). clotrimazol 2020-07 Yes [id number] 1{dose} Apply 1 [facility] 1 % 1-10 Dose to [facility] of ointment 00:00: [place] (two[place] [facility] times [facility] daily as needed for Rash (skin folds). fluorouraci 2020-07 Yes [id number] Apply to [facility] L 5 % cream 1-10 area(s) at it y of 00:00: bedtime as [place] 00 needed Medical (wart). Branch hydrocortis 2020-07 Yes [id number] Apply to [facility] 2.5 % 1-10 affected [facility] o[facility]ment 00:00: [place] ([place] [facility] times [facility] daily as needed for Rash (skin folds). clotrimazol 2020-07 Yes [id number] 1{dose} Apply 1 [facility] 1 % 1-10 Dose to [facility] ointment 00:00: [place] ([place] [facility] times [facility] daily as needed for Rash (skin folds). fluorouraci 2020-07 Yes [id number] Apply to [facility] 5 % cream 1-10 area(s) at it y of 00:00: bedtime as [place] 00 needed Medical (wart). Branch hydrocortis 2020-07 Yes [id number] Apply to [facility] 2.5 % 1-10 affected [facility] o[facility]ment 00:00: [place] ([place] [facility] times [facility] daily as needed for Rash (skin folds). clotrimazol 2020-07 Yes [id number] 1{dose} Apply 1 [facility] 1 % 1-10 Dose to [facility] o[facility]ment 00:00: [place] ([place] [facility] times [facility] daily as needed for Rash (skin folds). fluorouraci 2020-07 Yes [id number] Apply to [facility] 5 % cream 1-10 area(s) at it y of 00:00: bedtime as [place] 00 needed Medical (wart). Branch hydrocortis 2020-07 Yes [id number] Apply to [facility] 2.5 % 1-10 affected [facility] o[facility] 00:[place]: [place] [facility] times [facility] daily as needed for Rash (skin folds). clotrimazol 2020-07 Yes [id number] 1{dose} Apply 1 [facility] % 1-10 D[facility] to [facility] [facility]:[place] [facility] times [facility] daily as needed for Rash (skin folds). fluorouraci 2020-07 Yes [id number] Apply to [facility] 5 % cream 1-10 area(s) at [facility] y of 00:00: bedtime as [place] 00 needed Medical (wart). Branch hydrocortis 2020-07 Yes [id number] Apply to [facility] 2.5 % 1-10 affected [facility] ([place] [facility] times [facility] daily as needed for Rash (skin folds). clotrimazol 2020-07 Yes [id number] 1{dose} Apply 1 [facility] 1 % 1-10 Dose to [facility] ([place] [facility] times [facility] daily as needed for Rash (skin folds). fluorouraci 2020-07 Yes [id number] Apply to [facility] 5 % cream 1-10 area(s) at it y of 00:00: bedtime as [place] 00 needed Medical (wart). Branch hydrocortis 2020-07 Yes [id number] Apply to [facility] 2.5 % 1-10 affected [facility]: [place] ([place] [facility] times [facility] daily as needed for Rash (skin folds). clotrimazol 2020-07 Yes [id number] 1{dose} Apply 1 [facility] 1 % 1-10 Dose to [facility] 00:[facility]: [place] ([place] [facility] times [facility] daily as needed for Rash (skin folds). fluorouraci 2020-07 Yes [id number] Apply to [facility] 5 % cream 1-10 area(s) at it y of 00:00: bedtime as [place] 00 needed Medical (wart). Branch hydrocortis 2020-07 Yes [id number] Apply to [facility] 2.5 % 1-10 affected [facility] 00:[facility]: [place] ([place] [facility] times [facility] daily as needed for Rash (skin folds). clotrimazol 2020-07 Yes [id number] 1{dose} Apply 1 [facility] 1 % 1-10 Dose to [facility] 00:00: [place] ([place] [facility] times [facility] daily as needed for Rash (skin folds). fluorouraci 2020-07 Yes [id number] Apply to [facility] 5 % cream 1-10 area(s) at it y of 00:00: bedtime as [place] 00 needed Medical (wart). Branch hydrocortis 2020-07 Yes [id number] Apply to [facility] 2.5 % 1-10 affected [facility] 00:[facility]: [place] ([place] [facility] times [facility] daily as needed for Rash (skin folds). clotrimazol 2020-07 Yes [id number] 1{dose} Apply 1 [facility] 1 % 1-10 Dose to [facility] 00:00: [place] (two[place] [facility] times [facility] daily as needed for Rash (skin folds). fluorouraci 2020-07 Yes [id number] Apply to [facility] 5 % cream 1-10 area(s) at it y of 00:00: bedtime as [place] 00 needed Medical (wart). Branch hydrocortis 2020-07 Yes [id number] Apply to [facility] 2.5 % 1-10 affected [facility] 00:00: [place] ([facility] [facility] times [facility] daily as needed for Rash (skin folds). clotrimazol 2020-07 Yes [id number] 1{dose} Apply 1 [facility] 1 % 1-10 Dose to [facility] 00:00: [place] (two[place] [facility] times [facility] daily as needed for Rash (skin folds). fluorouraci 2020-07 Yes [id number] Apply to [facility] 5 % cream 1-10 area(s) at [facility] y of 00:00: bedtime as [place] 00 needed Medical (wart). Branch hydrocortis 2020-07 Yes [id number] Apply to [facility] 2.5 % 1-10 affected [facility] 00:00: [place] ([facility] [facility] times [facility] daily as needed for Rash (skin folds). clotrimazol 2020-07 Yes [id number] 1{dose} Apply 1 [facility] 1 % 1-10 Dose to [facility] 00:00: [place] (two[place] [facility] times [facility] daily as needed for Rash (skin folds). fluorouraci 2020-07 Yes [id number] Apply to [facility] 5 % cream 1-10 area(s) at it y of 00:00: bedtime as [place] 00 needed Medical (wart). Branch hydrocortis 2020-07 Yes [id number] Apply to [facility] 2.5 % 1-10 affected [facility] 00:00: [place] ([facility] [facility] times [facility] daily as needed for Rash (skin folds). clotrimazol 2020-07 Yes [id number] 1{dose} Apply 1 [facility] 1 % 1-10 Dose to [facility] oint[facility] 00:00: [place] (two[place] [facility] times [facility] daily as needed for Rash (skin folds). fluorouraci 2020-07 Yes [id number] Apply to [facility] 5 % cream 1-10 area(s) at it y of 00:00: bedtime as [place] 00 needed Medical (wart). Branch hydrocortis 2020-07 Yes [id number] Apply to [facility] 2.5 % 1-10 affected [facility] 00:00: [place] (two[place] [facility] times [facility] daily as needed for Rash (skin folds). clotrimazol 2020-07 Yes [id number] 1{dose} Apply 1 [facility] 1 % 1-10 Dose to [facility] oint[facility] 00:00: [place] (two[place] [facility] times [facility] daily as needed for Rash (skin folds). fluorouraci 2020-07 Yes [id number] Apply to [facility] 5 % cream 1-10 area(s) at it y of 00:00: bedtime as [place] 00 needed Medical (wart). Branch hydrocortis 2020-07 Yes [id number] Apply to [facility] 2.5 % 1-10 affected [facility] o[facility] 00:00: [place] (two[place] [facility] times [facility] daily as needed for Rash (skin folds). clotrimazol 2020-07 Yes [id number] 1{dose} Apply 1 [facility] 1 % 1-10 Dose to [facility] oint[facility] 00:00: [place] (two) [facility] times [facility] daily as needed for Rash (skin folds). fluorouraci 2020-07 Yes [id number] Apply to [facility] 5 % cream 1-10 area(s) at it y of 00:00: bedtime as [place] 00 needed Medical (wart). Branch hydrocortis 2020-07 Yes [id number] Apply to [facility] 2.5 % 1-10 affected [facility] o[facility] 00:00: [place] (two) [facility] times [facility] daily as needed for Rash (skin folds). clotrimazol 2020-07 Yes [id number] 1{dose} Apply 1 [facility] 1 % 1-10 Dose to [facility] oint[facility] 00:00: [place] (two) [facility] times [facility] daily as needed for Rash (skin folds). fluorouraci 2020-07 Yes [id number] Apply to [facility] 5 % cream 1-10 area(s) at it y of 00:00: bedtime as [place] 00 needed Medical (wart). Branch hydrocortis 2020-07 Yes [id number] Apply to [facility] 2.5 % 1-10 affected [facility] oint[facility] 00:00: [place] (two) [facility] times [facility] daily as needed for Rash (skin folds). clotrimazol 2020-07 Yes [id number] 1{dose} Apply 1 [facility] 1 % 1-10 Dose to [facility] oint[facility] 00:00: [place] (two) [facility] times [facility] daily as needed for Rash (skin folds). fluorouraci 2020-07 Yes [id number] Apply to [facility] 5 % cream 1-10 area(s) at it y of 00:00: bedtime as [place] 00 needed Medical (wart). Branch hydrocortis 2020-07 Yes [id number] Apply to [facility] 2.5 % 1-10 affected [facility] oint[facility] 00:00: [place] (two) [facility] times [facility] daily as needed for Rash (skin folds). clotrimazol 2020-07 Yes [id number] 1{dose} Apply 1 [facility] 1 % 1-10 Dose to [facility] 00:00: [place] (two) [facility] times [facility] daily as needed for Rash (skin folds). fluorouraci 2020-07 Yes [id number] Apply to [facility] 5 % cream 1-10 area(s) at it y of 00:00: bedtime as [place] 00 needed Medical (wart). Branch hydrocortis 2020-07 Yes [id number] Apply to [facility] 2.5 % 1-10 affected [facility] o[facility] 00:00: [place] (two[place] [facility] times [facility] daily as needed for Rash (skin folds). clotrimazol 2020-07 Yes [id number] 1{dose} Apply 1 [facility] 1 % 1-10 Dose to [facility] oint[facility] 00:00: [place] (two) [facility] times [facility] daily as needed for Rash (skin folds). fluorouraci 2020-07 Yes [id number] Apply to [facility] 5 % cream 1-10 area(s) at it y of 00:00: bedtime as [place] 00 needed Medical (wart). Branch hydrocortis 2020-07 Yes [id number] Apply to [facility] 2.5 % 1-10 affected [facility] o[facility] 00:00: [place] (two) [facility] times [facility] daily as needed for Rash (skin folds). clotrimazol 2020-07 Yes [id number] 1{dose} Apply 1 [facility] 1 % 1-10 Dose to [facility] oint[facility] 00:00: [place] (two) [facility] times [facility] daily as needed for Rash (skin folds). fluorouraci 2020-07 Yes [id number] Apply to [facility] 5 % cream 1-10 area(s) at it y of 00:00: bedtime as [place] 00 needed Medical (wart). Branch hydrocortis 2020-07 Yes [id number] Apply to [facility] 2.5 % 1-10 affected [facility] oint[facility] 00:00: [place] (two[place] [facility] times [facility] daily as needed for Rash (skin folds). clotrimazol 2020-07 Yes [id number] 1{dose} Apply 1 [facility] 1 % 1-10 Dose to [facility] oint[facility] 00:00: [place] (two) [facility] times [facility] daily as needed for Rash (skin folds). fluorouraci 2020-07 Yes [id number] Apply to [facility] 5 % cream 1-10 area(s) at it y of 00:00: bedtime as [place] 00 needed Medical (wart). Branch hydrocortis 2020-07 Yes [id number] Apply to [facility] 2.5 % 1-10 affected [facility] oint[facility] 00:00: [facility] (two) [facility] times [facility] daily as needed for Rash (skin folds). clotrimazol 2020-07 Yes [id number] 1{dose} Apply 1 [facility] 1 % 1-10 Dose to [facility] oint[facility] 00:00: [place] (two) [facility] times [facility] daily as needed for Rash (skin folds). fluorouraci 2020-07 Yes [id number] Apply to [facility] 5 % cream 1-10 area(s) at it y of 00:00: bedtime as [place] 00 needed Medical (wart). Branch hydrocortis 2020-07 Yes [id number] Apply to [facility] 2.5 % 1-10 affected [facility] oint[facility] 00:00: [place] (two) [facility] times [facility] daily as needed for Rash (skin folds). clotrimazol 2020-07 Yes [id number] 1{dose} Apply 1 [facility] 1 % 1-10 Dose to [facility] of ointment 00:00: [place] (two) [facility] times [facility] daily as needed for Rash (skin folds). fluorouraci 2020-07 Yes [id number] Apply to [facility] L 5 % cream 1-10 area(s) at it y of 00:00: bedtime as [place] 00 needed Medical (wart). Branch hydrocortis 2020-07 Yes [id number] Apply to [facility] 2.5 % 1-10 affected [facility] of ointment 00:00: [place] (two) [facility] times [facility] daily as needed for Rash (skin folds). clotrimazol 2020-07 Yes [id number] 1{dose} Apply 1 [facility] 1 % 1-10 Dose to [facility] of ointment 00:00: [place](s[place] (two) Medical times [facility] daily as needed for Rash (skin folds). fluorouraci 2020-07 Yes [id number] Apply to [facility] L 5 % cream 1-10 area(s) at it y of 00:00: bedtime as [place] 00 needed Medical (wart). Branch hydrocortis 2020-07 Yes [id number] Apply to [facility] 2.5 % 1-10 affected [facility] of ointment 00:00: [facility](s[place] (two) [facility] times [facility] daily as needed for Rash (skin folds). clotrimazol 2020-07 Yes [id number] 1{dose} Apply 1 [facility] 1 % 1-10 Dose to [facility] of ointment 00:00: [place](s[place] (two) Medical times [facility] daily as needed for Rash (skin folds). fluorouraci 2020-07 Yes [id number] Apply to [facility] L 5 % cream 1-10 area(s) at it y of 00:00: bedtime as [place] 00 needed Medical (wart). Branch hydrocortis 2020-07 Yes [id number] Apply to [facility] 2.5 % 1-10 affected [facility] of ointment 00:00: [place](s[place] (two) [facility] times [facility] daily as needed for Rash (skin folds). clotrimazol 2020-07 Yes [id number] 1{dose} Apply 1 [facility] 1 % 1-10 Dose to [facility] of ointment 00:00: [place](s[place] (two) Medical times [facility] daily as needed for Rash (skin folds). fluorouraci 2020-07 Yes [id number] Apply to [facility] L 5 % cream 1-10 area(s) at it y of 00:00: bedtime as [place] 00 needed Medical (wart). Branch hydrocortis 2020-07 Yes [id number] Apply to [facility] 2.5 % 1-10 affected [facility] of ointment 00:00: [place](s[place] (two) [facility] times [facility] daily as needed for Rash (skin folds). clotrimazol 2020-07 Yes [id number] 1{dose} Apply 1 [facility] 1 % 1-10 Dose to [facility] of ointment 00:00: [place](s[place] (two) Medical times [facility] daily as needed for Rash (skin folds). fluorouraci 2020-07 Yes [id number] Apply to [facility] L 5 % cream 1-10 area(s) at it y of 00:00: bedtime as [place] 00 needed Medical (wart). Branch hydrocortis 2020-07 Yes [id number] Apply to [facility] one 2.5 % 1-10 affected [facility] of ointment 00:00: [place](s[place] (two) Medical times [facility] daily as needed for Rash (skin folds). clotrimazol 2020-07 Yes [id number] 1{dose} Apply 1 [facility] 1 % 1-10 Dose to [facility] of ointment 00:00: [place](s[place] (two) Medical times [facility] daily as needed for Rash (skin folds). fluorouraci 2020-07 Yes [id number] Apply to [facility] L 5 % cream 1-10 area(s) at it y of 00:00: bedtime as [place] 00 needed Medical (wart). Branch hydrocortis 2020-07 Yes [id number] Apply to [facility] 2.5 % 1-10 affected [facility] of ointment 00:00: [place](s[place] (two) Medical times [facility] daily as needed for Rash (skin folds). clotrimazol 2020-07 Yes [id number] 1{dose} Apply 1 [facility] 1 % 1-10 Dose to [facility] of ointment 00:00: [place](s[place] (two) Medical times [facility] daily as needed for Rash (skin folds). fluorouraci 2020-07 Yes [id number] Apply to [facility] L 5 % cream 1-10 area(s) at it y of 00:00: bedtime as [place] 00 needed Medical (wart). Branch hydrocortis 2020-07 Yes [id number] Apply to [facility] 2.5 % 1-10 affected [facility] of ointment 00:00: [place](s[place] (two) Medical times [facility] daily as needed for Rash (skin folds). clotrimazol 2020-07 Yes [id number] 1{dose} Apply 1 [facility] 1 % 1-10 Dose to [facility] of ointment 00:00: [place](s[place] (two) Medical times [facility] daily as needed for Rash (skin folds). fluorouraci 2020-07 Yes [id number] Apply to [facility] L 5 % cream 1-10 area(s) at it y of 00:00: bedtime as [place] 00 needed Medical (wart). Branch hydrocortis 2020-07 Yes [id number] Apply to [facility] 2.5 % 1-10 affected [facility] of ointment 00:00: [place](s[place] (two) [facility] times [facility] daily as needed for Rash (skin folds). clotrimazol 2020-07 Yes [id number] 1{dose} Apply 1 [facility] 1 % 1-10 Dose to [facility] of ointment 00:00: [place](s[place] (two) Medical times [facility] daily as needed for Rash (skin folds). fluorouraci 2020-07 Yes [id number] Apply to [facility] L 5 % cream 1-10 area(s) at it y of 00:00: bedtime as [place] 00 needed Medical (wart). Branch hydrocortis 2020-07 Yes [id number] Apply to [facility] 2.5 % 1-10 affected [facility] of ointment 00:00: [place](s[place] (two) Medical times [facility] daily as needed for Rash (skin folds). clotrimazol 2020-07 Yes [id number] 1{dose} Apply 1 [facility] 1 % 1-10 Dose to [facility] of ointment 00:00: [place](s[place] (two) Medical times [facility] daily as needed for Rash (skin folds). fluorouraci 2020-07 Yes [id number] Apply to [facility] L 5 % cream 1-10 area(s) at it y of 00:00: bedtime as [place] 00 needed Medical (wart). Branch hydrocortis 2020-07 Yes [id number] Apply to [facility] one 2.5 % 1-10 affected [facility] of ointment 00:00: [place](s[place] (two) Medical times [facility] daily as needed for Rash (skin folds). clotrimazol 2020-07 Yes [id number] 1{dose} Apply 1 [facility] 1 % 1-10 Dose to [facility] of ointment 00:00: [place](s[place] (two) Medical times [facility] daily as needed for Rash (skin folds). fluorouraci 2020-07 Yes [id number] Apply to [facility] L 5 % cream 1-10 area(s) at it y of 00:00: bedtime as [place] 00 needed Medical (wart). Branch hydrocortis 2020-07 Yes [id number] Apply to [facility] one 2.5 % 1-10 affected [facility]y of ointment 00:00: [place](s[place] (two) Medical times [facility] daily as needed for Rash (skin folds). clotrimazol 2020-07 Yes [id number] 1{dose} Apply 1 [facility] 1 % 1-10 Dose to [facility]y of ointment 00:00: [place](s[place] (two) Medical times [facility] daily as needed for Rash (skin folds). fluorouraci 2020-07 Yes [id number] Apply to [facility] L 5 % cream 1-10 area(s) at it y of 00:00: bedtime as [place] 00 needed Medical (wart). Branch hydrocortis 2020-07 Yes [id number] Apply to [facility] one 2.5 % 1-10 affected [facility]y of ointment 00:00: [place](s[place] (two) [facility] times [facility] daily as needed for Rash (skin folds). clotrimazol 2020-07 Yes [id number] 1{dose} Apply 1 [facility] 1 % 1-10 Dose to [facility]y of ointment 00:00: [place](s[place] (two) Medical times [facility] daily as needed for Rash (skin folds). fluorouraci 2020-07 Yes [id number] Apply to [facility] L 5 % cream 1-10 area(s) at it y of 00:00: bedtime as [place] 00 needed Medical (wart). Branch hydrocortis 2020-07 Yes [id number] Apply to [facility] one 2.5 % 1-10 affected [facility] of ointment 00:00: [place](s[place] (two) [facility] times [facility] daily as needed for Rash (skin folds). clotrimazol 2020-07 Yes [id number] 1{dose} Apply 1 [facility] 1 % 1-10 Dose to [facility]y of ointment 00:00: [place](s[place] (two) [facility] times [facility] daily as needed for Rash (skin folds). fluorouraci 2020-07 Yes [id number] Apply to [facility] L 5 % cream 1-10 area(s) at it y of 00:00: bedtime as [place] 00 needed Medical (wart). Branch hydrocortis 2020-07 Yes [id number] Apply to [facility] one 2.5 % 1-10 affected [facility] of ointment 00:00: [place](s[place] (two) [facility] times [facility] daily as needed for Rash (skin folds). clotrimazol 2020-07 Yes [id number] 1{dose} Apply 1 [facility] 1 % 1-10 Dose to [facility]y of ointment 00:00: [place](s[place] (two) Medical times [facility] daily as needed for Rash (skin folds). fluorouraci 2020-07 Yes [id number] Apply to [facility] L 5 % cream 1-10 area(s) at it y of 00:00: bedtime as [place] 00 needed Medical (wart). Branch hydrocortis 2020-07 Yes [id number] Apply to [facility] one 2.5 % 1-10 affected [facility] of ointment 00:00: [place](s[place] (two) [facility] times [facility] daily as needed for Rash (skin folds). clotrimazol 2020-07 Yes [id number] 1{dose} Apply 1 [facility] 1 % 1-10 Dose to [facility]y of ointment 00:00: [place](s[place] (two) [facility] times [facility] daily as needed for Rash (skin folds). fluorouraci 2020-07 Yes [id number] Apply to [facility] L 5 % cream 1-10 area(s) at it y of 00:00: bedtime as [place] 00 needed Medical (wart). Branch hydrocortis 2020-07 Yes [id number] Apply to [facility] one 2.5 % 1-10 affected [facility]y of ointment 00:00: [place](s[place] (two) [facility] times [facility] daily as needed for Rash (skin folds). clotrimazol 2020-07 Yes [id number] 1{dose} Apply 1 [facility] 1 % 1-10 Dose to [facility]y of ointment 00:00: [place](s[place] (two) [facility] times [facility] daily as needed for Rash (skin folds). fluorouraci 2020-07 Yes [id number] Apply to [facility] L 5 % cream 1-10 area(s) at it y of 00:00: bedtime as [place] 00 needed Medical (wart). Branch hydrocortis 2020-07 Yes [id number] Apply to [facility] one 2.5 % 1-10 affected [facility] of ointment 00:00: [place](s[place] (two) [facility] times [facility] daily as needed for Rash (skin folds). clotrimazol 2020-07 Yes [id number] 1{dose} Apply 1 [facility] 1 % 1-10 Dose to [facility]y of ointment 00:00: [place](s[place] (two) [facility] times [facility] daily as needed for Rash (skin folds). fluorouraci 2020-07 Yes [id number] Apply to [facility] L 5 % cream 1-10 area(s) at it y of 00:00: bedtime as [place] 00 needed Medical (wart). Branch hydrocortis 2020-07 Yes [id number] Apply to [facility] one 2.5 % 1-10 affected [facility] of ointment 00:00: [place](s[place] (two) [facility] times [facility] daily as needed for Rash (skin folds). clotrimazol 2020-07 Yes [id number] 1{dose} Apply 1 [facility] 1 % 1-10 Dose to [facility] of ointment 00:00: [place](s[place] (two) [facility] times [facility] daily as needed for Rash (skin folds). fluorouraci 2020-07 Yes [id number] Apply to [facility] L 5 % cream 1-10 area(s) at it y of 00:00: bedtime as [place] 00 needed Medical (wart). Branch hydrocortis 2020-07 Yes [id number] Apply to [facility] one 2.5 % 1-10 affected [facility]y of ointment 00:00: [place](s[place] (two) [facility] times [facility] daily as needed for Rash (skin folds). clotrimazol 2020-07 Yes [id number] 1{dose} Apply 1 [facility] 1 % 1-10 Dose to [facility]y of ointment 00:00: [place](s[place] (two) [facility] times [facility] daily as needed for Rash (skin folds). fluorouraci 2020-07 Yes [id number] Apply to [facility] L 5 % cream 1-10 area(s) at it y of 00:00: bedtime as [place] 00 needed Medical (wart). Branch hydrocortis 2020-07 Yes [id number] Apply to [facility] one 2.5 % 1-10 affected [facility] of ointment 00:00: [place] (two) [facility] times [facility] daily as needed for Rash (skin folds). clotrimazol 2020-07 Yes [id number] 1{dose} Apply 1 [facility] 1 % 1-10 Dose to [facility]y of ointment 00:00: [place](s[place] (two) [facility] times [facility] daily as needed for Rash (skin folds). fluorouraci 2020-07 Yes [id number] Apply to [facility] L 5 % cream 1-10 area(s) at it y of 00:00: bedtime as [place] 00 needed Medical (wart). Branch hydrocortis 2020-07 Yes [id number] Apply to [facility] one 2.5 % 1-10 affected [facility]y of ointment 00:00: [place](s[place] (two) [facility] times [facility] daily as needed for Rash (skin folds). clotrimazol 2020-07 Yes [id number] 1{dose} Apply 1 [facility] 1 % 1-10 Dose to [facility]y of ointment 00:00: [place](s[place] (two) [facility] times [facility] daily as needed for Rash (skin folds). fluorouraci 2020-07 Yes [id number] Apply to [facility] L 5 % cream 1-10 area(s) at it y of 00:00: bedtime as [place] 00 needed Medical (wart). Branch hydrocortis 2020-07 Yes [id number] Apply to [facility] one 2.5 % 1-10 affected [facility]y of ointment 00:00: [place] (two) [facility] times [facility] daily as needed for Rash (skin folds). clotrimazol 2020-07 Yes [id number] 1{dose} Apply 1 [facility] 1 % 1-10 Dose to [facility]y of ointment 00:00: [place](s[place] (two) [facility] times [facility] daily as needed for Rash (skin folds). fluorouraci 2020-07 Yes [id number] Apply to [facility] L 5 % cream 1-10 area(s) at it y of 00:00: bedtime as [place] 00 needed Medical (wart). Branch hydrocortis 2020-07 Yes [id number] Apply to [facility] one 2.5 % 1-10 affected [facility] of ointment 00:00: [place] (two) [facility] times [facility] daily as needed for Rash (skin folds). clotrimazol 2020-07 Yes [id number] 1{dose} Apply 1 [facility] 1 % 1-10 Dose to [facility]y of ointment 00:00: [place] (two) [facility] times [facility] daily as needed for Rash (skin folds). fluorouraci 2020-07 Yes [id number] Apply to [facility] L 5 % cream 1-10 area(s) at it y of 00:00: bedtime as [place] 00 needed Medical (wart). Branch hydrocortis 2020-07 Yes [id number] Apply to [facility] one 2.5 % 1-10 affected [facility] of ointment 00:00: [place] (two) [facility] times [facility] daily as needed for Rash (skin folds). clotrimazol 2020-07 Yes [id number] 1{dose} Apply 1 [facility] 1 % 1-10 Dose to [facility] of ointment 00:00: [place] (two) [facility] times [facility] daily as needed for Rash (skin folds). fluorouraci 2020-07 Yes [id number] Apply to [facility] L 5 % cream 1-10 area(s) at it y of 00:00: bedtime as [place] 00 needed Medical (wart). Branch hydrocortis 2020-07 Yes [id number] Apply to [facility] one 2.5 % 1-10 affected [facility] of ointment 00:00: [place] (two) [facility] times [facility] daily as needed for Rash (skin folds). clotrimazol 2020-07 Yes [id number] 1{dose} Apply 1 [facility] 1 % 1-10 Dose to [facility]y of ointment 00:00: [place] (two) [facility] times [facility] daily as needed for Rash (skin folds). fluorouraci 2020-07 Yes [id number] Apply to [facility] L 5 % cream 1-10 area(s) at it y of 00:00: bedtime as [place] 00 needed Medical (wart). Branch hydrocortis 2020-07 Yes [id number] Apply to [facility] one 2.5 % 1-10 affected [facility]y of ointment 00:00: [place] (two) [facility] times [facility] daily as needed for Rash (skin folds). clotrimazol 2020-07 Yes [id number] 1{dose} Apply 1 [facility] 1 % 1-10 Dose to [facility]y of ointment 00:00: [place] (two) [facility] times [facility] daily as needed for Rash (skin folds). fluorouraci 2020-07 Yes [id number] Apply to [facility] L 5 % cream 1-10 area(s) at it y of 00:00: bedtime as [place] 00 needed Medical (wart). Branch hydrocortis 2020-07 Yes [id number] Apply to [facility] one 2.5 % 1-10 affected [facility] of ointment 00:00: [place] ([place] [facility] times [facility] daily as needed for Rash (skin folds). clotrimazol 2020-07 Yes [id number] 1{dose} Apply 1 [facility] 1 % 1-10 Dose to [facility]y of ointment 00:00: [place] (two) [facility] times [facility] daily as needed for Rash (skin folds). fluorouraci 2020-07 Yes [id number] Apply to [facility] L 5 % cream 1-10 area(s) at it y of 00:00: bedtime as [place] 00 needed Medical (wart). Branch hydrocortis 2020-07 Yes [id number] Apply to [facility] one 2.5 % 1-10 affected [facility] of ointment 00:00: [place] ([place] [facility] times [facility] daily as needed for Rash (skin folds). clotrimazol 2020-07 Yes [id number] 1{dose} Apply 1 [facility] 1 % 1-10 Dose to [facility] of ointment 00:00: [place] ([place] [facility] times [facility] daily as needed for Rash (skin folds). fluorouraci 2020-07 Yes [id number] Apply to [facility] L 5 % cream 1-10 area(s) at it y of 00:00: bedtime as [place] 00 needed Medical (wart). Branch hydrocortis 2020-07 Yes [id number] Apply to [facility] one 2.5 % 1-10 affected [facility] of ointment 00:00: [place] ([place] [facility] times [facility] daily as needed for Rash (skin folds). clotrimazol 2020-07 Yes [id number] 1{dose} Apply 1 [facility] 1 % 1-10 Dose to [facility] of ointment 00:00: [place] ([place] [facility] times [facility] daily as needed for Rash (skin folds). fluorouraci 2020-07 Yes [id number] Apply to [facility] L 5 % cream 1-10 area(s) at it y of 00:00: bedtime as [place] 00 needed Medical (wart). Branch hydrocortis 2020-07 Yes [id number] Apply to [facility] one 2.5 % 1-10 affected [facility] o[facility] 00:[place]: [place] (two) Medical times Branch daily as needed for Rash (skin folds). clotrimazol 2020-07 Yes [id number] 1{dose} Apply 1 [facility] e 1 % 1-10 Dose to [facility]y of oint[place] 00:00[place] (two[place] [facility] times [facility] daily as needed for Rash (skin folds). fluorouraci 2020-07 Yes [id number] Apply to [facility] L 5 % cream 1-10 area(s) at it y of 00:00: bedtime as [place] 00 needed Medical (wart). Branch METHOTREXAT 2020-07- No [id number] 12.5mg TAKE 5 [facility] E 2.5 mg 1-10 04-05 TABLETS BY ity of tablet 00:00: 00:00 MOUTH [place] 00 :00 WEEKLY Medical Branch blood sugar 2020-07 Yes [id number] Use as [facility] diagnostic 0-07 directed, ity of (ONETOUCH 00:00: test bid [place] VERIO TEST 00 Medical STRIPS) Branch strip blood sugar 2020-07 Yes [id number] Use as [facility] diagnostic 0-07 directed, it[facility] of (ONETOUCH 00:00: test bid [place] VERIO TEST 00 Medical STRIPS) Branch strip blood sugar 2020-07 Yes [id number] Use as [facility] diagnostic 0-07 directed, ity of (ONETOUCH 00:00: test bid [place] VERIO TEST 00 Medical STRIPS) Branch strip blood sugar 2020-07 Yes [id number] Use as [facility] diagnostic 0-07 directed, it[facility] of (ONETOUCH 00:00: test bid [place] VERIO TEST 00 Medical STRIPS) Branch strip blood sugar 2020-07 Yes [id number] Use as [facility] diagnostic 0-07 directed, ity of (ONETOUCH 00:00: test bid [place] VERIO TEST 00 Medical STRIPS) Branch strip blood sugar 2020-07 Yes [id number] Use as [facility] diagnostic 0-07 directed, it[facility] of (ONETOUCH 00:00: test bid [place] VERIO TEST 00 Medical STRIPS) Branch strip blood sugar 2020-07 Yes [id number] Use as [facility] diagnostic 0-07 directed, it[facility] of (ONETOUCH 00:00: test bid [place] VERIO TEST 00 Medical STRIPS) Branch strip blood sugar 2020-07 Yes [id number] Use as [facility] diagnostic 0-07 directed, ity of (ONETOUCH 00:00: test bid [place] VERIO TEST 00 Medical STRIPS) Branch strip blood sugar 2020-07 Yes [id number] Use as [facility] diagnostic 0-07 directed, ity of (ONETOUCH 00:00: test bid [place] VERIO TEST 00 Medical STRIPS) Branch strip blood sugar 2020-07 Yes [id number] Use as [facility] diagnostic 0-07 directed, ity of (ONETOUCH 00:00: test bid [place] VERIO TEST 00 Medical STRIPS) Branch strip blood sugar 2020-07 Yes [id number] Use as [facility] diagnostic 0-07 directed, ity of (ONETOUCH 00:00: test bid [place] VERIO TEST 00 Medical STRIPS) Branch strip blood sugar 2020-07 Yes [id number] Use as [facility] diagnostic 0-07 directed, ity of (ONETOUCH 00:00: test bid [place] VERIO TEST 00 Medical STRIPS) Branch strip blood sugar 2020-07 Yes [id number] Use as [facility] diagnostic 0-07 directed, ity of (ONETOUCH 00:00: test bid [place] VERIO TEST 00 Medical STRIPS) Branch strip blood sugar 2020-07 Yes [id number] Use as [facility] diagnostic 0-07 directed, ity of (ONETOUCH 00:00: test bid [place] VERIO TEST 00 Medical STRIPS) Branch strip blood sugar 2020-07 Yes [id number] Use as [facility] diagnostic 0-07 directed, it[facility] of (ONETOUCH 00:00: test bid [place] VERIO TEST 00 Medical STRIPS) Branch strip blood sugar 2020-07 Yes [id number] Use as [facility] diagnostic 0-07 directed, ity of (ONETOUCH 00:00: test bid [place] VERIO TEST 00 Medical STRIPS) Branch strip blood sugar 2020-07 Yes [id number] Use as [facility] diagnostic 0-07 directed, ity of (ONETOUCH 00:00: test bid [place] VERIO TEST 00 Medical STRIPS) Branch strip blood sugar 2020-07 Yes [id number] Use as [facility] diagnostic 0-07 directed, ity of (ONETOUCH 00:00: test bid [place] VERIO TEST 00 Medical STRIPS) Branch strip blood sugar 2020-07 Yes [id number] Use as [facility] diagnostic 0-07 directed, ity of (ONETOUCH 00:00: test bid [place] VERIO TEST 00 Medical STRIPS) Branch strip blood sugar 2020-07 Yes [id number] Use as [facility] diagnostic 0-07 directed, ity of (ONETOUCH 00:00: test bid [place] VERIO TEST 00 Medical STRIPS) Branch strip blood sugar 2020-07 Yes [id number] Use as [facility] diagnostic 0-07 directed, ity of (ONETOUCH 00:00: test bid [place] VERIO TEST 00 Medical STRIPS) Branch strip blood sugar 2020-07 Yes [id number] Use as [facility] diagnostic 0-07 directed, ity of (ONETOUCH 00:00: test bid [place] VERIO TEST 00 Medical STRIPS) Branch strip blood sugar 2020-07 Yes [id number] Use as [facility] diagnostic 0-07 directed, ity of (ONETOUCH 00:00: test bid [place] VERIO TEST 00 Medical STRIPS) Branch strip blood sugar 2020-07 Yes [id number] Use as [facility] diagnostic 0-07 directed, ity of (ONETOUCH 00:00: test bid [place] VERIO TEST 00 Medical STRIPS) Branch strip blood sugar 2020-07 Yes [id number] Use as [facility] diagnostic 0-07 directed, ity of (ONETOUCH 00:00: test bid [place] VERIO TEST 00 Medical STRIPS) Branch strip blood sugar 2020-07 Yes [id number] Use as [facility] diagnostic 0-07 directed, ity of (ONETOUCH 00:00: test bid [place] VERIO TEST 00 Medical STRIPS) Branch strip blood sugar 2020-07 Yes [id number] Use as [facility] diagnostic 0-07 directed, ity of (ONETOUCH 00:00: test bid [place] VERIO TEST 00 Medical STRIPS) Branch strip blood sugar 2020-07 Yes [id number] Use as [facility] diagnostic 0-07 directed, ity of (ONETOUCH 00:00: test bid [place] VERIO TEST 00 Medical STRIPS) Branch strip blood sugar 2020-07 Yes [id number] Use as [facility] diagnostic 0-07 directed, ity of (ONETOUCH 00:00: test bid [place] VERIO TEST 00 Medical STRIPS) Branch strip blood sugar 2020-07 Yes [id number] Use as [facility] diagnostic 0-07 directed, ity of (ONETOUCH 00:00: test bid [place] VERIO TEST 00 Medical STRIPS) Branch strip blood sugar 2020-07 Yes [id number] Use as [facility] diagnostic 0-07 directed, ity of (ONETOUCH 00:00: test bid [place] VERIO TEST 00 Medical STRIPS) Branch strip blood sugar 2020-07 Yes [id number] Use as [facility] diagnostic 0-07 directed, it[facility] of (ONETOUCH 00:00: test bid [place] VERIO TEST 00 Medical STRIPS) Branch strip blood sugar 2020-07 Yes [id number] Use as [facility] diagnostic 0-07 directed, it[facility] of (ONETOUCH 00:00: test bid [place] VERIO TEST 00 Medical STRIPS) Branch strip blood sugar 2020-07 Yes [id number] Use as [facility] diagnostic 0-07 directed, it[facility] of (ONETOUCH 00:00: test bid [place] VERIO TEST 00 Medical STRIPS) Branch strip blood sugar 2020-07 Yes [id number] Use as [facility] diagnostic 0-07 directed, ity of (ONETOUCH 00:00: test bid [place] VERIO TEST 00 Medical STRIPS) Branch strip blood sugar 2020-07 Yes [id number] Use as [facility] diagnostic 0-07 directed, it[facility] of (ONETOUCH 00:00: test bid [place] VERIO TEST 00 Medical STRIPS) Branch strip blood sugar 2020-07 Yes [id number] Use as [facility] diagnostic 0-07 directed, ity of (ONETOUCH 00:00: test bid [place] VERIO TEST 00 Medical STRIPS) Branch strip blood sugar 2020-07 Yes [id number] Use as [facility] diagnostic 0-07 directed, ity of (ONETOUCH 00:00: test bid [place] VERIO TEST 00 Medical STRIPS) Branch strip blood sugar 2020-07 Yes [id number] Use as [facility] diagnostic 0-07 directed, ity of (ONETOUCH 00:00: test bid [place] VERIO TEST 00 Medical STRIPS) Branch strip blood sugar 2020-07 Yes [id number] Use as [facility] diagnostic 0-07 directed, ity of (ONETOUCH 00:00: test bid [place] VERIO TEST 00 Medical STRIPS) Branch strip blood sugar 2020-07 Yes [id number] Use as [facility] diagnostic 0-07 directed, [facility] of (ONETOUCH 00:00: test bid [place] VERIO TEST 00 Medical STRIPS) Branch strip blood sugar 2020-07 Yes [id number] Use as [facility] diagnostic 0-07 directed, ity of (ONETOUCH 00:00: test bid [place] VERIO TEST 00 Medical STRIPS) Branch strip blood sugar 2020-07 Yes [id number] Use as [facility] diagnostic 0-07 directed, ity of (ONETOUCH 00:00: test bid [place] VERIO TEST 00 Medical STRIPS) Branch strip blood sugar 2020-07 Yes [id number] Use as [facility] diagnostic 0-07 directed, ity of (ONETOUCH 00:00: test bid [place] VERIO TEST 00 Medical STRIPS) Branch strip blood sugar 2020-07 Yes [id number] Use as [facility] diagnostic 0-07 directed, ity of (ONETOUCH 00:00: test bid [place] VERIO TEST 00 Medical STRIPS) Branch strip blood sugar 2020-07 Yes [id number] Use as [facility] diagnostic 0-07 directed, [facility] of (ONETOUCH 00:00: test bid [place] VERIO TEST 00 Medical STRIPS) Branch strip blood sugar 2020-07 Yes [id number] Use as [facility] diagnostic 0-07 directed, it[facility] of (ONETOUCH 00:00: test bid [place] VERIO TEST 00 Medical STRIPS) Branch strip blood sugar 2020-07 Yes [id number] Use as [facility] diagnostic 0-07 directed, ity of (ONETOUCH 00:00: test bid [place] VERIO TEST 00 Medical STRIPS) Branch strip blood sugar 2020-07 Yes [id number] Use as [facility] diagnostic 0-07 directed, it[facility] of (ONETOUCH 00:00: test bid [place] VERIO TEST 00 Medical STRIPS) Branch strip blood sugar 2020-07 Yes [id number] Use as [facility] diagnostic 0-07 directed, ity of (ONETOUCH 00:00: test bid [place] VERIO TEST 00 Medical STRIPS) Branch strip blood sugar 2020-07 Yes [id number] Use as [facility] diagnostic 0-07 directed, ity of (ONETOUCH 00:00: test bid [place] VERIO TEST 00 Medical STRIPS) Branch strip blood sugar 2020-07 Yes [id number] Use as [facility] diagnostic 0-07 directed, ity of (ONETOUCH 00:00: test bid [place] VERIO TEST 00 Medical STRIPS) Branch strip blood sugar 2020-07 Yes [id number] Use as [facility] diagnostic 0-07 directed, ity of (ONETOUCH 00:00: test bid [place] VERIO TEST 00 Medical STRIPS) Branch strip blood sugar 2020-07 Yes [id number] Use as [facility] diagnostic 0-07 directed, ity of (ONETOUCH 00:00: test bid [place] VERIO TEST 00 Medical STRIPS) Branch strip blood sugar 2020-07 Yes [id number] Use as [facility] diagnostic 0-07 directed, ity of (ONETOUCH 00:00: test bid [place] VERIO TEST 00 Medical STRIPS) Branch strip blood sugar 2020-07 Yes [id number] Use as [facility] diagnostic 0-07 directed, ity of (ONETOUCH 00:00: test bid [place] VERIO TEST 00 Medical STRIPS) Branch strip blood sugar 2020-07 Yes [id number] Use as [facility] diagnostic 0-07 directed, ity of (ONETOUCH 00:00: test bid [place] VERIO TEST 00 Medical STRIPS) Branch strip blood sugar 2020-07 Yes [id number] Use as [facility] diagnostic 0-07 directed, ity of (ONETOUCH 00:00: test bid [place] VERIO TEST 00 Medical STRIPS) Branch strip blood sugar 2020-07 Yes [id number] Use as [facility] diagnostic 0-07 directed, ity of (ONETOUCH 00:00: test bid [place] VERIO TEST 00 Medical STRIPS) Branch strip blood sugar 2020-07 Yes [id number] Use as [facility] diagnostic 0-07 directed, ity of (ONETOUCH 00:00: test bid [place] VERIO TEST 00 Medical STRIPS) Branch strip blood sugar 2020-07 Yes [id number] Use as [facility] diagnostic 0-07 directed, ity of (ONETOUCH 00:00: test bid [place] VERIO TEST 00 Medical STRIPS) Branch strip blood sugar 2020-07 Yes [id number] Use as [facility] diagnostic 0-07 directed, ity of (ONETOUCH 00:00: test bid [place] VERIO TEST 00 Medical STRIPS) Branch strip blood sugar 2020-07 Yes [id number] Use as [facility] diagnostic 0-07 directed, ity of (ONETOUCH 00:00: test bid [place] VERIO TEST 00 Medical STRIPS) Branch strip blood sugar 2020-07 Yes [id number] Use as [facility] diagnostic 0-07 directed, ity of (ONETOUCH 00:00: test bid [place] VERIO TEST 00 Medical STRIPS) Branch strip blood sugar 2020-07 Yes [id number] Use as [facility] diagnostic 0-07 directed, ity of (ONETOUCH 00:00: test bid [place] VERIO TEST 00 Medical STRIPS) Branch strip blood sugar 2020-07 Yes [id number] Use as [facility] diagnostic 0-07 directed, ity of (ONETOUCH 00:00: test bid [place] VERIO TEST 00 Medical STRIPS) Branch strip blood sugar 2020-07 Yes [id number] Use as [facility] diagnostic 0-07 directed, ity of (ONETOUCH 00:00: test bid [place] VERIO TEST 00 Medical STRIPS) Branch strip blood sugar 2020-07 Yes [id number] Use as [facility] diagnostic 0-07 directed, ity of (ONETOUCH 00:00: test bid [place] VERIO TEST 00 Medical STRIPS) Branch strip blood sugar 2020-07 Yes [id number] Use as [facility] diagnostic 0-07 directed, ity of (ONETOUCH 00:00: test bid [place] VERIO TEST 00 Medical STRIPS) Branch strip blood sugar 2020-07 Yes [id number] Use as [facility] diagnostic 0-07 directed, ity of (ONETOUCH 00:00: test bid [place] VERIO TEST 00 Medical STRIPS) Branch strip blood sugar 2020-07 Yes [id number] Use as [facility] diagnostic 0-07 directed, ity of (ONETOUCH 00:00: test bid [place] VERIO TEST 00 Medical STRIPS) Branch strip blood sugar 2020-07 Yes [id number] Use as [facility] diagnostic 0-07 directed, ity of (ONETOUCH 00:00: test bid [place] VERIO TEST 00 Medical STRIPS) Branch strip blood sugar 2020-07 Yes [id number] Use as [facility] diagnostic 0-07 directed, ity of (ONETOUCH 00:00: test bid [place] VERIO TEST 00 Medical STRIPS) Branch strip blood sugar 2020-07 Yes [id number] Use as [facility] diagnostic 0-07 directed, ity of (ONETOUCH 00:00: test bid [place] VERIO TEST 00 Medical STRIPS) Branch strip blood sugar 2020-07 Yes [id number] Use as [facility] diagnostic 0-07 directed, ity of (ONETOUCH 00:00: test bid [place] VERIO TEST 00 Medical STRIPS) Branch strip blood sugar 2020-07 Yes [id number] Use as [facility] diagnostic 0-07 directed, ity of (ONETOUCH 00:00: test bid [place] VERIO TEST 00 Medical STRIPS) Branch strip blood sugar 2020-07 Yes [id number] Use as [facility] diagnostic 0-07 directed, ity of (ONETOUCH 00:00: test bid [place] VERIO TEST 00 Medical STRIPS) Branch strip blood sugar 2020-07 Yes [id number] Use as [facility] diagnostic 0-07 directed, ity of (ONETOUCH 00:00: test bid [place] VERIO TEST 00 Medical STRIPS) Branch strip blood sugar 2020-07 Yes [id number] Use as [facility] diagnostic 0-07 directed, ity of (ONETOUCH 00:00: test bid [place] VERIO TEST 00 Medical STRIPS) Branch strip blood sugar 2020-07 Yes [id number] Use as [facility] diagnostic 0-07 directed, ity of (ONETOUCH 00:00: test bid [place] VERIO TEST 00 Medical STRIPS) Branch strip blood sugar 2020-07 Yes [id number] Use as [facility] diagnostic 0-07 directed, ity of (ONETOUCH 00:00: test bid [place] VERIO TEST 00 Medical STRIPS) Branch strip blood sugar 2020-07 Yes [id number] Use as [facility] diagnostic 0-07 directed, ity of (ONETOUCH 00:00: test bid [place] VERIO TEST 00 Medical STRIPS) Branch strip blood sugar 2020-07 Yes [id number] Use as [facility] diagnostic 0-07 directed, ity of (ONETOUCH 00:00: test bid [place] VERIO TEST 00 Medical STRIPS) Branch strip blood sugar 2020-07 Yes [id number] Use as [facility] diagnostic 0-07 directed, ity of (ONETOUCH 00:00: test bid [place] VERIO TEST 00 Medical STRIPS) Branch strip blood sugar 2020-07 Yes [id number] Use as [facility] diagnostic 0-07 directed, ity of (ONETOUCH 00:00: test bid [place] VERIO TEST 00 Medical STRIPS) Branch strip blood sugar 2020-07 Yes [id number] Use as [facility] diagnostic 0-07 directed, ity of (ONETOUCH 00:00: test bid [place] VERIO TEST 00 Medical STRIPS) Branch strip blood sugar 2020-07 Yes [id number] Use as [facility] diagnostic 0-07 directed, ity of (ONETOUCH 00:00: test bid [place] VERIO TEST 00 Medical STRIPS) Branch strip blood sugar 2020-07 Yes [id number] Use as [facility] diagnostic 0-07 directed, ity of (ONETOUCH 00:00: test bid [place] VERIO TEST 00 Medical STRIPS) Branch strip blood sugar 2020-07 Yes [id number] Use as [facility] diagnostic 0-07 directed, ity of (ONETOUCH 00:00: test bid [place] VERIO TEST 00 Medical STRIPS) Branch strip blood sugar 2020-07 Yes [id number] Use as [facility] diagnostic 0-07 directed, ity of (ONETOUCH 00:00: test bid [place] VERIO TEST 00 Medical STRIPS) Branch strip blood sugar 2020-07 Yes [id number] Use as [facility] diagnostic 0-07 directed, ity of (ONETOUCH 00:00: test bid [place] VERIO TEST 00 Medical STRIPS) Branch strip blood sugar 2020-07 Yes [id number] Use as [facility] diagnostic 0-07 directed, ity of (ONETOUCH 00:00: test bid [place] VERIO TEST 00 Medical STRIPS) Branch strip blood sugar 2020-07 Yes [id number] Use as [facility] diagnostic 0-07 directed, ity of (ONETOUCH 00:00: test bid [place] VERIO TEST 00 Medical STRIPS) Branch strip blood sugar 2020-07 Yes [id number] Use as [facility] diagnostic 0-07 directed, ity of (ONETOUCH 00:00: test bid [place] VERIO TEST 00 Medical STRIPS) Branch strip blood sugar 2020-07 Yes [id number] Use as [facility] diagnostic 0-07 directed, ity of (ONETOUCH 00:00: test bid [place] VERIO TEST 00 Medical STRIPS) Branch strip blood sugar 2020-07 Yes [id number] Use as [facility] diagnostic 0-07 directed, ity of (ONETOUCH 00:00: test bid [place] VERIO TEST 00 Medical STRIPS) Branch strip blood sugar 2020-07 Yes [id number] Use as [facility] diagnostic 0-07 directed, ity of (ONETOUCH 00:00: test bid [place] VERIO TEST 00 Medical STRIPS) Branch strip LISINOPRIL- 2020-072- No [id number] TAKE 1 [facility] HYDROCHLORO 0-07 03-11 TABLET BY it y of THIAZIDE 00:00: 00:00 MOUTH [place] 20-12.5 mg 00 :00 EVERY DAY Medi julian per tablet [facility] 2020-07 Yes [id number] 8.6mg Take 1 [facility] 8.6 mg 0-05 tablet by ity of tablet 00:00: mouth [place] 00 daily. [facility] 2020-07 Yes [id number] 8.6mg Take 1 [facility] 8.6 mg 0-05 tablet by ity of tablet 00:00: mouth [place] 00 daily. [facility] 2020-07 Yes [id number] 8.6mg Take 1 [facility] 8.6 mg 0-05 tablet by ity of tablet 00:00: mouth [place] 00 daily. [facility] 2020-07 Yes [id number] 8.6mg Take 1 [facility] 8.6 mg 0-05 tablet by ity of tablet 00:00: mouth [place] 00 daily. [facility] 2020-07 Yes [id number] 8.6mg Take 1 [facility] 8.6 mg 0-05 tablet by ity of tablet 00:00: mouth [place] 00 daily. [facility] 2020-07 Yes [id number] 8.6mg Take 1 [facility] 8.6 mg 0-05 tablet by ity of tablet 00:00: mouth [place] 00 daily. [facility] 2020-07 Yes [id number] 8.6mg Take 1 [facility] 8.6 mg 0-05 tablet by ity of tablet 00:00: mouth [place] 00 daily. [facility] 2020-07 Yes [id number] 8.6mg Take 1 [facility] 8.6 mg 0-05 tablet by ity of tablet 00:00: mouth [place] 00 daily. [facility] 2020-07 Yes [id number] 8.6mg Take 1 [facility] 8.6 mg 0-05 tablet by ity of tablet 00:00: mouth [place] 00 daily. [facility] 2020-07 Yes [id number] 8.6mg Take 1 [facility] 8.6 mg 0-05 tablet by ity of tablet 00:00: mouth [place] 00 daily. [facility] 2020-07 Yes [id number] 8.6mg Take 1 [facility] 8.6 mg 0-05 tablet by ity of tablet 00:00: mouth [place] 00 daily. [facility] 2020-07 Yes [id number] 8.6mg Take 1 [facility] 8.6 mg 0-05 tablet by ity of tablet 00:00: mouth [place] 00 daily. [facility] 2020-07 Yes [id number] 8.6mg Take 1 [facility] 8.6 mg 0-05 tablet by ity of tablet 00:00: mouth [place] 00 daily. [facility] 2020-07 Yes [id number] 8.6mg Take 1 [facility] 8.6 mg 0-05 tablet by ity of tablet 00:00: mouth [place] 00 daily. [facility] 2020-07 Yes [id number] 8.6mg Take 1 [facility] 8.6 mg 0-05 tablet by ity of tablet 00:00: mouth [place] 00 daily. [facility] 2020-07 Yes [id number] 8.6mg Take 1 [facility] 8.6 mg 0-05 tablet by ity of tablet 00:00: mouth [place] 00 daily. [facility] 2020-07 Yes [id number] 8.6mg Take 1 [facility] 8.6 mg 0-05 tablet by ity of tablet 00:00: mouth [place] 00 daily. [facility] 2020-07 Yes [id number] 8.6mg Take 1 [facility] 8.6 mg 0-05 tablet by ity of tablet 00:00: mouth [place] 00 daily. [facility] 2020-07 Yes [id number] 8.6mg Take 1 [facility] 8.6 mg 0-05 tablet by ity of tablet 00:00: mouth [place] 00 daily. [facility] 2020-07 Yes [id number] 8.6mg Take 1 [facility] 8.6 mg 0-05 tablet by ity of tablet 00:00: mouth [place] 00 daily. [facility] 2020-07 Yes [id number] 8.6mg Take 1 [facility] 8.6 mg 0-05 tablet by ity of tablet 00:00: mouth [place] 00 daily. [facility] 2020-07 Yes [id number] 8.6mg Take 1 [facility] 8.6 mg 0-05 tablet by ity of tablet 00:00: mouth [place] 00 daily. [facility] 2020-07 Yes [id number] 8.6mg Take 1 [facility] 8.6 mg 0-05 tablet by ity of tablet 00:00: mouth [place] 00 daily. [facility] 2020-07 Yes [id number] 8.6mg Take 1 [facility] 8.6 mg 0-05 tablet by ity of tablet 00:00: mouth [place] 00 daily. [facility] 2020-07 Yes [id number] 8.6mg Take 1 [facility] 8.6 mg 0-05 tablet by ity of tablet 00:00: mouth [place] 00 daily. [facility] 2020-07 Yes [id number] 8.6mg Take 1 [facility] 8.6 mg 0-05 tablet by ity of tablet 00:00: mouth [place] 00 daily. [facility] 2020-07 Yes [id number] 8.6mg Take 1 [facility] 8.6 mg 0-05 tablet by ity of tablet 00:00: mouth [place] 00 daily. [facility] 2020-07 Yes [id number] 8.6mg Take 1 [facility] 8.6 mg 0-05 tablet by ity of tablet 00:00: mouth [place] 00 daily. [facility] 2020-07 Yes [id number] 8.6mg Take 1 [facility] 8.6 mg 0-05 tablet by ity of tablet 00:00: mouth [place] 00 daily. [facility] 2020-07 Yes [id number] 8.6mg Take 1 [facility] 8.6 mg 0-05 tablet by ity of tablet 00:00: mouth [place] 00 daily. [facility] 2020-07 Yes [id number] 8.6mg Take 1 [facility] 8.6 mg 0-05 tablet by ity of tablet 00:00: mouth [place] 00 daily. [facility] 2020-07 Yes [id number] 8.6mg Take 1 [facility] 8.6 mg 0-05 tablet by ity of tablet 00:00: mouth [place] 00 daily. [facility] 2020-07 Yes [id number] 8.6mg Take 1 [facility] 8.6 mg 0-05 tablet by ity of tablet 00:00: mouth [place] 00 daily. [facility] 2020-07 Yes [id number] 8.6mg Take 1 [facility] 8.6 mg 0-05 tablet by ity of tablet 00:00: mouth [place] 00 daily. [facility] 2020-07 Yes [id number] 8.6mg Take 1 [facility] 8.6 mg 0-05 tablet by ity of tablet 00:00: mouth [place] 00 daily. [facility] 2020-07 Yes [id number] 8.6mg Take 1 [facility] 8.6 mg 0-05 tablet by ity of tablet 00:00: mouth [place] 00 daily. [facility] 2020-07 Yes [id number] 8.6mg Take 1 [facility] 8.6 mg 0-05 tablet by ity of tablet 00:00: mouth [place] 00 daily. [facility] 2020-07 Yes [id number] 8.6mg Take 1 [facility] 8.6 mg 0-05 tablet by ity of tablet 00:00: mouth [place] 00 daily. [facility] 2020-07 Yes [id number] 8.6mg Take 1 [facility] 8.6 mg 0-05 tablet by ity of tablet 00:00: mouth [place] 00 daily. [facility] 2020-07 Yes [id number] 8.6mg Take 1 [facility] 8.6 mg 0-05 tablet by ity of tablet 00:00: mouth [place] 00 daily. [facility] 2020-07 Yes [id number] 8.6mg Take 1 [facility] 8.6 mg 0-05 tablet by ity of tablet 00:00: mouth [place] 00 daily. [facility] 2020-07 Yes [id number] 8.6mg Take 1 [facility] 8.6 mg 0-05 tablet by ity of tablet 00:00: mouth [place] 00 daily. [facility] 2020-07 Yes [id number] 8.6mg Take 1 [facility] 8.6 mg 0-05 tablet by ity of tablet 00:00: mouth [place] 00 daily. [facility] 2020-07 Yes [id number] 8.6mg Take 1 [facility] 8.6 mg 0-05 tablet by ity of tablet 00:00: mouth [place] 00 daily. [facility] 2020-07 Yes [id number] 8.6mg Take 1 [facility] 8.6 mg 0-05 tablet by ity of tablet 00:00: mouth [place] 00 daily. [facility] 2020-07 Yes [id number] 8.6mg Take 1 [facility] 8.6 mg 0-05 tablet by ity of tablet 00:00: mouth [place] 00 daily. [facility] 2020-07 Yes [id number] 8.6mg Take 1 [facility] 8.6 mg 0-05 tablet by ity of tablet 00:00: mouth [place] 00 daily. [facility] 2020-07 Yes [id number] 8.6mg Take 1 [facility] 8.6 mg 0-05 tablet by ity of tablet 00:00: mouth [place] 00 daily. [facility] 2020-07 Yes [id number] 8.6mg Take 1 [facility] 8.6 mg 0-05 tablet by ity of tablet 00:00: mouth [place] 00 daily. [facility] 2020-07 Yes [id number] 8.6mg Take 1 [facility] 8.6 mg 0-05 tablet by ity of tablet 00:00: mouth [place] 00 daily. [facility] 2020-07 Yes [id number] 8.6mg Take 1 [facility] 8.6 mg 0-05 tablet by ity of tablet 00:00: mouth [place] 00 daily. [facility] 2020-07 Yes [id number] 8.6mg Take 1 [facility] 8.6 mg 0-05 tablet by ity of tablet 00:00: mouth [place] 00 daily. [facility] 2020-07 Yes [id number] 8.6mg Take 1 [facility] 8.6 mg 0-05 tablet by ity of tablet 00:00: mouth [place] 00 daily. [facility] 2020-07 Yes [id number] 8.6mg Take 1 [facility] 8.6 mg 0-05 tablet by ity of tablet 00:00: mouth [place] 00 daily. [facility] 2020-07 Yes [id number] 8.6mg Take 1 [facility] 8.6 mg 0-05 tablet by ity of tablet 00:00: mouth [place] 00 daily. [facility] [facility] [place] 2020-07 Yes [id number] 8.6mg Take 1 [facility] 8.6 mg 0-05 tablet by ity of tablet 00:00: mouth [place] 00 daily. [facility] [place] 2020-07 Yes [id number] 8.6mg Take 1 [facility] 8.6 mg 0-05 tablet by ity of tablet 00:00: mouth [place] 00 daily. [facility] [place] 2020-07 Yes [id number] 8.6mg Take 1 [facility] 8.6 mg 0-05 tablet by ity of tablet 00:00: mouth [place] 00 daily. [facility] [place] 2020-07 Yes [id number] 8.6mg Take 1 [facility] 8.6 mg 0-05 tablet by ity of tablet 00:00: mouth [place] 00 daily. [facility] 2020-07 Yes [id number] 8.6mg Take 1 [facility] 8.6 mg 0-05 tablet by ity of tablet 00:00: mouth [place] 00 daily. [facility] [place] 2020-07 Yes [id number] 8.6mg Take 1 [facility] 8.6 mg 0-05 tablet by ity of tablet 00:00: mouth [place] 00 daily. [facility] 2020-07 Yes [id number] 8.6mg Take 1 [facility] 8.6 mg 0-05 tablet by ity of tablet 00:00: mouth [place] 00 daily. [facility] [place] 2020-07 Yes [id number] 8.6mg Take 1 [facility] 8.6 mg 0-05 tablet by ity of tablet 00:00: mouth [place] 00 daily. [facility] [place] 2020-07 Yes [id number] 8.6mg Take 1 [facility] 8.6 mg 0-05 tablet by ity of tablet 00:00: mouth [place] 00 daily. [facility] [place] 2020-07 Yes [id number] 8.6mg Take 1 [facility] 8.6 mg 0-05 tablet by ity of tablet 00:00: mouth [place] 00 daily. [facility] [place] 2020-07 Yes [id number] 8.6mg Take 1 [facility] 8.6 mg 0-05 tablet by ity of tablet 00:00: mouth [place] 00 daily. [facility] [place] 2020-07 Yes [id number] 8.6mg Take 1 [facility] 8.6 mg 0-05 tablet by ity of tablet 00:00: mouth [place] 00 daily. [facility] [place] 2020-07 Yes [id number] 8.6mg Take 1 [facility] 8.6 mg 0-05 tablet by ity of tablet 00:00: mouth [place] 00 daily. [facility] [place] 2020-07 Yes [id number] 8.6mg Take 1 [facility] 8.6 mg 0-05 tablet by ity of tablet 00:00: mouth [place] 00 daily. [facility] [place] 2020-07 Yes [id number] 8.6mg Take 1 [facility] 8.6 mg 0-05 tablet by ity of tablet 00:00: mouth [place] 00 daily. [facility] [place] 2020-07 Yes [id number] 8.6mg Take 1 [facility] 8.6 mg 0-05 tablet by ity of tablet 00:00: mouth [place] 00 daily. [facility] [place] 2020-07 Yes [id number] 8.6mg Take 1 [facility] 8.6 mg 0-05 tablet by ity of tablet 00:00: mouth [place] 00 daily. [facility] [place] 2020-07 Yes [id number] 8.6mg Take 1 [facility] 8.6 mg 0-05 tablet by ity of tablet 00:00: mouth [place] 00 daily. [facility] [place] 2020-07 Yes [id number] 8.6mg Take 1 [facility] 8.6 mg 0-05 tablet by ity of tablet 00:00: mouth [place] 00 daily. [facility] [place] 2020-07 Yes [id number] 8.6mg Take 1 [facility] 8.6 mg 0-05 tablet by ity of tablet 00:00: mouth [place] 00 daily. [facility] [place] 2020-07 Yes [id number] 8.6mg Take 1 [facility] 8.6 mg 0-05 tablet by ity of tablet 00:00: mouth [place] 00 daily. [facility] [place] 2020-07 Yes [id number] 8.6mg Take 1 [facility] 8.6 mg 0-05 tablet by ity of tablet 00:00: mouth [place] 00 daily. [facility] [place] 2020-07 Yes [id number] 8.6mg Take 1 [facility] 8.6 mg 0-05 tablet by ity of tablet 00:00: mouth [place] 00 daily. [facility] [place] 2020-07 Yes [id number] 8.6mg Take 1 [facility] 8.6 mg 0-05 tablet by ity of tablet 00:00: mouth [place] 00 daily. [facility] [place] 2020-07 Yes [id number] 8.6mg Take 1 [facility] 8.6 mg 0-05 tablet by ity of tablet 00:00: mouth [place] 00 daily. [facility] 2020-07 Yes [id number] 8.6mg Take 1 [facility] 8.6 mg 0-05 tablet by ity of tablet 00:00: mouth [place] 00 daily. [facility] [place] 2020-07 Yes [id number] 8.6mg Take 1 [facility] 8.6 mg 0-05 tablet by ity of tablet 00:00: mouth [place] 00 daily. [facility] [place] 2020-07 Yes [id number] 8.6mg Take 1 [facility] 8.6 mg 0-05 tablet by ity of tablet 00:00: mouth [place] 00 daily. [facility] 2020-07 Yes [id number] 8.6mg Take 1 [facility] 8.6 mg 0-05 tablet by ity of tablet 00:00: mouth [place] 00 daily. [facility] [place] 2020-07 Yes [id number] 8.6mg Take 1 [facility] 8.6 mg 0-05 tablet by ity of tablet 00:00: mouth [place] 00 daily. [facility] [place] 2020-07 Yes [id number] 8.6mg Take 1 [facility] 8.6 mg 0-05 tablet by ity of tablet 00:00: mouth [place] 00 daily. [facility] [place] 2020-07 Yes [id number] 8.6mg Take 1 [facility] 8.6 mg 0-05 tablet by ity of tablet 00:00: mouth [place] 00 daily. [facility] [place] 2020-07 Yes [id number] 8.6mg Take 1 [facility] 8.6 mg 0-05 tablet by ity of tablet 00:00: mouth [place] 00 daily. [facility] [place] 2020-07 Yes [id number] 8.6mg Take 1 [facility] 8.6 mg 0-05 tablet by ity of tablet 00:00: mouth [place] 00 daily. [facility] [place] 2020-07 Yes [id number] 8.6mg Take 1 [facility] 8.6 mg 0-05 tablet by ity of tablet 00:00: mouth [place] 00 daily. [facility] [place] 2020-07 Yes [id number] 8.6mg Take 1 [facility] 8.6 mg 0-05 tablet by ity of tablet 00:00: mouth [place] 00 daily. [facility] [place] 2020-07 Yes [id number] 8.6mg Take 1 [facility] 8.6 mg 0-05 tablet by ity of tablet 00:00: mouth [place] 00 daily. [facility] [place] 2020-07 Yes [id number] 8.6mg Take 1 [facility] 8.6 mg 0-05 tablet by ity of tablet 00:00: mouth [place] 00 daily. [facility] [place] 2020-07 Yes [id number] 8.6mg Take 1 [facility] 8.6 mg 0-05 tablet by ity of tablet 00:00: mouth [place] 00 daily. [facility] 2020-07 Yes [id number] 8.6mg Take 1 [facility] 8.6 mg 0-05 tablet by ity of tablet 00:00: mouth [place] 00 daily. [facility] [place] 2020-07 Yes [id number] 8.6mg Take 1 [facility] 8.6 mg 0-05 tablet by ity of tablet 00:00: mouth [place] 00 daily. [facility] 2020-07 Yes [id number] 8.6mg Take 1 [facility] 8.6 mg 0-05 tablet by ity of tablet 00:00: mouth [place] 00 daily. [facility] 2020-07 Yes [id number] 8.6mg Take 1 [facility] 8.6 mg 0-05 tablet by ity of tablet 00:00: mouth [place] 00 daily. [facility] sennosides 2020-07 Yes [id number] 8.6mg Take 1 [facility] 8.6 mg 0-05 tablet by ity of tablet 00:00: mouth [place] 00 daily. [facility] doxepin 25 2020-07 25mg Take 25 mg [facility] mg capsule 0-04-28 by mouth ity of 14:50: 00:00 at bedtime [place] 42 :00 as needed. [facility] doxepin 25 2020-07 No 25mg Take 25 mg [facility] mg capsule 0-04 by mouth ity of 14:50: 00:00 at bedtime [place] 42 :00 as needed. [facility] HYDROcodone 2020-07 (Schedule [facility] -acetaminop 04-28 II Drug) ity of hen 7.5-325 14:42: 00:00 TAKE 1 [place] as mg/15 mL 25 :00 TABLET BY Medica l solution MOUTH 3 Branch TIMES A DAY ergocalcife 2020-07 Yes [id number] Take 1 [facility] rol, 0-04 capsule by ity of vitamin d2, 00:00: mouth [place] 1,250 mcg 00 weekly. Medical (50,000 Branch unit) capsule Blood 2020-07 Yes [id number] Use as [facility] Pressure 0-04 directed ity of Kit Med & 00:00: [place] [facility] 00 Medical Branch ergocalcife 2020-07 Yes [id number] Take 1 [facility] rol, 0-04 capsule by ity of vitamin d2, 00:00: mouth [place] 1,250 mcg 00 weekly. Medical (50,000 Branch unit) capsule Blood 2020-07 Yes [id number] Use as [facility] Pressure 0-04 directed ity of Kit Med & 00:00: [place] [facility] 00 Medical [facility] ergocalcife 2020-07 Yes [id number] Take 1 [facility] rol, 0-04 capsule by ity of vitamin d2, 00:00: mouth [place] 1,250 mcg 00 weekly. Medical (50,000 Branch unit) capsule Blood 2020-07 Yes [id number] Use as [facility] Pressure 0-04 directed ity of Kit Med & 00:00: [place] [facility] 00 Medical Branch ergocalcife 2020-07 Yes [id number] Take 1 [facility] rol, 0-04 capsule by ity of vitamin d2, 00:00: mouth [place] 1,250 mcg 00 weekly. Medical (50,000 Branch unit) capsule Blood 2020-07 Yes [id number] Use as [facility] Pressure 0-04 directed ity of Kit Med & 00:00: [place] [facility] 00 Medical [facility] ergocalcife 2020-07 Yes [id number] Take 1 [facility] rol, 0-04 capsule by ity of vitamin d2, 00:00: mouth [place] 1,250 mcg 00 weekly. Medical (50,000 Branch unit) capsule Blood 2020-07 Yes [id number] Use as [facility] Pressure 0-04 directed ity of Kit Med & 00:00: [place] [facility] 00 Medical Branch ergocalcife 2020-07 Yes [id number] Take 1 [facility] rol, 0-04 capsule by ity of vitamin d2, 00:00: mouth [place] 1,250 mcg 00 weekly. Medical (50,000 Branch unit) capsule Blood 2020-07 Yes [id number] Use as [facility] Pressure 0-04 directed ity of Kit Med & 00:00: [place] [facility] Medical Branch ergocalcife 2020-07 Yes [id number] Take 1 [facility] rol, 0-04 capsule by ity of vitamin d2, 00:00: mouth [place] 1,250 mcg 00 weekly. Medical (50,000 Branch unit) capsule Blood 2020-07 Yes [id number] Use as [facility] Pressure 0-04 directed ity of Kit Med & 00:00: [place] [facility] 00 Medical Branch ergocalcife 2020-07 Yes [id number] Take 1 [facility] rol, 0-04 capsule by ity of vitamin d2, 00:00: mouth [place] 1,250 mcg 00 weekly. Medical (50,000 Branch unit) capsule Blood 2020-07 Yes [id number] Use as [facility] Pressure 0-04 directed ity of Kit Med & 00:00: [place] [facility] 00 Medical Branch ergocalcife 2020-07 Yes [id number] Take 1 [facility] rol, 0-04 capsule by ity of vitamin d2, 00:00: mouth [place] 1,250 mcg 00 weekly. Medical (50,000 Branch unit) capsule Blood 2020-07 Yes [id number] Use as [facility] Pressure 0-04 directed ity of Kit Med & 00:00: [place] [facility] 00 Medical Branch ergocalcife 2020-07 Yes [id number] Take 1 [facility] rol, 0-04 capsule by ity of vitamin d2, 00:00: mouth [place] 1,250 mcg 00 weekly. Medical (50,000 Branch unit) capsule Blood 2020-07 Yes [id number] Use as [facility] Pressure 0-04 directed ity of Kit Med & 00:00: [place] [facility] Medical Branch ergocalcife 2020-07 Yes [id number] Take 1 [facility] rol, 0-04 capsule by ity of vitamin d2, 00:00: mouth [place] 1,250 mcg 00 weekly. Medical (50,000 Branch unit) capsule Blood 2020-07 Yes [id number] Use as [facility] Pressure 0-04 directed ity of Kit Med & 00:00: [place] [facility] Medical Branch ergocalcife 2020-07 Yes [id number] Take 1 [facility] rol, 0-04 capsule by ity of vitamin d2, 00:00: mouth [place] 1,250 mcg 00 weekly. Medical (50,000 Branch unit) capsule Blood 2020-07 Yes [id number] Use as [facility] Pressure 0-04 directed ity of Kit Med & 00:00: [place] [facility] Medical Branch ergocalcife 2020-07 Yes [id number] Take 1 [facility] rol, 0-04 capsule by ity of vitamin d2, 00:00: mouth [place] 1,250 mcg 00 weekly. Medical (50,000 Branch unit) capsule Blood 2020-07 Yes [id number] Use as [facility] Pressure 0-04 directed ity of Kit Med & 00:00: [place] [facility] 00 Medical Branch ergocalcife 2020-07 Yes [id number] Take 1 [facility] rol, 0-04 capsule by ity of vitamin d2, 00:00: mouth [place] 1,250 mcg 00 weekly. Medical (50,000 Branch unit) capsule Blood 2020-07 Yes [id number] Use as [facility] Pressure 0-04 directed ity of Kit Med & 00:00: [place] [facility] 00 Medical Branch ergocalcife 2020-07 Yes [id number] Take 1 [facility] rol, 0-04 capsule by ity of vitamin d2, 00:00: mouth [place] 1,250 mcg 00 weekly. Medical (50,000 Branch unit) capsule Blood 2020-07 Yes [id number] Use as [facility] Pressure 0-04 directed ity of Kit Med & 00:00: [place] [facility] 00 Medical Branch ergocalcife 2020-07 Yes [id number] Take 1 [facility] rol, 0-04 capsule by ity of vitamin d2, 00:00: mouth [place] 1,250 mcg 00 weekly. Medical (50,000 Branch unit) capsule Blood 2020-07 Yes [id number] Use as [facility] Pressure 0-04 directed ity of Kit Med & 00:00: [place] [facility] 00 Medical Branch ergocalcife 2020-07 Yes [id number] Take 1 [facility] rol, 0-04 capsule by ity of vitamin d2, 00:00: mouth [place] 1,250 mcg 00 weekly. Medical (50,000 Branch unit) capsule Blood 2020-07 Yes [id number] Use as [facility] Pressure 0-04 directed ity of Kit Med & 00:00: [place] [facility] 00 Medical Branch ergocalcife 2020-07 Yes [id number] Take 1 [facility] rol, 0-04 capsule by ity of vitamin d2, 00:00: mouth [place] 1,250 mcg 00 weekly. Medical (50,000 Branch unit) capsule Blood 2020-07 Yes [id number] Use as [facility] Pressure 0-04 directed ity of Kit Med & 00:00: [place] [facility] 00 Medical Branch ergocalcife 2020-07 Yes [id number] Take 1 [facility] rol, 0-04 capsule by ity of vitamin d2, 00:00: mouth [place] 1,250 mcg 00 weekly. Medical (50,000 Branch unit) capsule Blood 2020-07 Yes [id number] Use as [facility] Pressure 0-04 directed ity of Kit Med & 00:00: [place] [facility] 00 Medical Branch ergocalcife 2020-07 Yes [id number] Take 1 [facility] rol, 0-04 capsule by ity of vitamin d2, 00:00: mouth [place] 1,250 mcg 00 weekly. Medical (50,000 Branch unit) capsule Blood 2020-07 Yes [id number] Use as [facility] Pressure 0-04 directed ity of Kit Med & 00:00: [place] [facility] 00 Medical Branch ergocalcife 2020-07 Yes [id number] Take 1 [facility] rol, 0-04 capsule by ity of vitamin d2, 00:00: mouth [place] 1,250 mcg 00 weekly. Medical (50,000 Branch unit) capsule Blood 2020-07 Yes [id number] Use as [facility] Pressure 0-04 directed ity of Kit Med & 00:00: [place] [facility] 00 Medical Branch ergocalcife 2020-07 Yes [id number] Take 1 [facility] rol, 0-04 capsule by ity of vitamin d2, 00:00: mouth [place] 1,250 mcg 00 weekly. Medical (50,000 Branch unit) capsule Blood 2020-07 Yes [id number] Use as [facility] Pressure 0-04 directed ity of Kit Med & 00:00: [place] [facility] 00 Medical Branch ergocalcife 2020-07 Yes [id number] Take 1 [facility] rol, 0-04 capsule by ity of vitamin d2, 00:00: mouth [place] 1,250 mcg 00 weekly. Medical (50,000 Branch unit) capsule Blood 2020-07 Yes [id number] Use as [facility] Pressure 0-04 directed ity of Kit Med & 00:00: [place] [facility] Kit Medical Branch ergocalcife 2020-07 Yes [id number] Take 1 [facility] rol, 0-04 capsule by ity of vitamin d2, 00:00: mouth [place] 1,250 mcg 00 weekly. Medical (50,000 Branch unit) capsule Blood 2020-07 Yes [id number] Use as [facility] Pressure 0-04 directed ity of Kit Med & 00:00: [place] [facility] 00 Medical Branch ergocalcife 2020-07 Yes [id number] Take 1 [facility] rol, 0-04 capsule by ity of vitamin d2, 00:00: mouth [place] 1,250 mcg 00 weekly. Medical (50,000 Branch unit) capsule Blood 2020-07 Yes [id number] Use as [facility] Pressure 0-04 directed ity of Kit Med & 00:00: [place] [facility] 00 Medical Branch ergocalcife 2020-07 Yes [id number] Take 1 [facility] rol, 0-04 capsule by ity of vitamin d2, 00:00: mouth [place] 1,250 mcg 00 weekly. Medical (50,000 Branch unit) capsule Blood 2020-07 Yes [id number] Use as [facility] Pressure 0-04 directed ity of Kit Med & 00:00: [place] [facility] 00 Medical Branch ergocalcife 2020-07 Yes [id number] Take 1 [facility] rol, 0-04 capsule by ity of vitamin d2, 00:00: mouth [place] 1,250 mcg 00 weekly. Medical (50,000 Branch unit) capsule Blood 2020-07 Yes [id number] Use as [facility] Pressure 0-04 directed ity of Kit Med & 00:00: [place] [facility] 00 Medical Branch ergocalcife 2020-07 Yes [id number] Take 1 [facility] rol, 0-04 capsule by ity of vitamin d2, 00:00: mouth [place] 1,250 mcg 00 weekly. Medical (50,000 Branch unit) capsule Blood 2020-07 Yes [id number] Use as [facility] Pressure 0-04 directed ity of Kit Med & 00:00: [place] [facility] Kit 00 Medical Branch ergocalcife 2020-07 Yes [id number] Take 1 [facility] rol, 0-04 capsule by ity of vitamin d2, 00:00: mouth [place] 1,250 mcg 00 weekly. Medical (50,000 Branch unit) capsule Blood 2020-07 Yes [id number] Use as [facility] Pressure 0-04 directed ity of Kit Med & 00:00: [place] [facility] Kit Medical Branch ergocalcife 2020-07 Yes [id number] Take 1 [facility] rol, 0-04 capsule by ity of vitamin d2, 00:00: mouth [place] 1,250 mcg 00 weekly. Medical (50,000 Branch unit) capsule Blood 2020-07 Yes [id number] Use as [facility] Pressure 0-04 directed ity of Kit Med & 00:00: [place] [facility] Kit Medical Branch ergocalcife 2020-07 Yes [id number] Take 1 [facility] rol, 0-04 capsule by ity of vitamin d2, 00:00: mouth [place] 1,250 mcg 00 weekly. Medical (50,000 Branch unit) capsule Blood 2020-07 Yes [id number] Use as [facility] Pressure 0-04 directed ity of Kit Med & 00:00: [place] [facility] Kit 00 Medical Branch ergocalcife 2020-07 Yes [id number] Take 1 [facility] rol, 0-04 capsule by ity of vitamin d2, 00:00: mouth [place] 1,250 mcg 00 weekly. Medical (50,000 Branch unit) capsule Blood 2020-07 Yes [id number] Use as [facility] Pressure 0-04 directed ity of Kit Med & 00:00: [place] [facility] Kit 00 Medical Branch ergocalcife 2020-07 Yes [id number] Take 1 [facility] rol, 0-04 capsule by ity of vitamin d2, 00:00: mouth [place] 1,250 mcg 00 weekly. Medical (50,000 Branch unit) capsule Blood 2020-07 Yes [id number] Use as [facility] Pressure 0-04 directed ity of Kit Med & 00:00: [place] [facility] 00 Medical Branch ergocalcife 2020-07 Yes [id number] Take 1 [facility] rol, 0-04 capsule by ity of vitamin d2, 00:00: mouth [place] 1,250 mcg 00 weekly. Medical (50,000 Branch unit) capsule Blood 2020-07 Yes [id number] Use as [facility] Pressure 0-04 directed ity of Kit Med & 00:00: [place] [facility] Kit Medical Branch ergocalcife 2020-07 Yes [id number] Take 1 [facility] rol, 0-04 capsule by ity of vitamin d2, 00:00: mouth [place] 1,250 mcg 00 weekly. Medical (50,000 Branch unit) capsule Blood 2020-07 Yes [id number] Use as [facility] Pressure 0-04 directed ity of Kit Med & 00:00: [place] [facility] Kit Medical Branch ergocalcife 2020-07 Yes [id number] Take 1 [facility] rol, 0-04 capsule by ity of vitamin d2, 00:00: mouth [place] 1,250 mcg 00 weekly. Medical (50,000 Branch unit) capsule Blood 2020-07 Yes [id number] Use as [facility] Pressure 0-04 directed ity of Kit Med & 00:00: [place] [facility] 00 Medical Branch ergocalcife 2020-07 Yes [id number] Take 1 [facility] rol, 0-04 capsule by ity of vitamin d2, 00:00: mouth [place] 1,250 mcg 00 weekly. Medical (50,000 Branch unit) capsule Blood 2020-07 Yes [id number] Use as [facility] Pressure 0-04 directed ity of Kit Med & 00:00: [place] [facility] 00 Medical Branch ergocalcife 2020-07 Yes [id number] Take 1 [facility] rol, 0-04 capsule by ity of vitamin d2, 00:00: mouth [place] 1,250 mcg 00 weekly. Medical (50,000 Branch unit) capsule Blood 2020-07 Yes [id number] Use as [facility] Pressure 0-04 directed ity of Kit Med & 00:00: [place] [facility] Kit 00 Medical Branch ergocalcife 2020-07 Yes [id number] Take 1 [facility] rol, 0-04 capsule by ity of vitamin d2, 00:00: mouth [place] 1,250 mcg 00 weekly. Medical (50,000 Branch unit) capsule Blood 2020-07 Yes [id number] Use as [facility] Pressure 0-04 directed ity of Kit Med & 00:00: [place] [facility] 00 Medical Branch ergocalcife 2020-07 Yes [id number] Take 1 [facility] rol, 0-04 capsule by ity of vitamin d2, 00:00: mouth [place] 1,250 mcg 00 weekly. Medical (50,000 Branch unit) capsule Blood 2020-07 Yes [id number] Use as [facility] Pressure 0-04 directed ity of Kit Med & 00:00: [place] [facility] 00 Medical Branch ergocalcife 2020-07 Yes [id number] Take 1 [facility] rol, 0-04 capsule by ity of vitamin d2, 00:00: mouth [place] 1,250 mcg 00 weekly. Medical (50,000 Branch unit) capsule Blood 2020-07 Yes [id number] Use as [facility] Pressure 0-04 directed ity of Kit Med & 00:00: [place] [facility] 00 Medical Branch ergocalcife 2020-07 Yes [id number] Take 1 [facility] rol, 0-04 capsule by ity of vitamin d2, 00:00: mouth [place] 1,250 mcg 00 weekly. Medical (50,000 Branch unit) capsule Blood 2020-07 Yes [id number] Use as [facility] Pressure 0-04 directed ity of Kit Med & 00:00: [place] [facility] Kit 00 Medical Branch ergocalcife 2020-07 Yes [id number] Take 1 [facility] rol, 0-04 capsule by ity of vitamin d2, 00:00: mouth [place] 1,250 mcg 00 weekly. Medical (50,000 Branch unit) capsule Blood 2020-07 Yes [id number] Use as [facility] Pressure 0-04 directed ity of Kit Med & 00:00: [place] [facility] 00 Medical Branch ergocalcife 2020-07 Yes [id number] Take 1 [facility] rol, 0-04 capsule by ity of vitamin d2, 00:00: mouth [place] 1,250 mcg 00 weekly. Medical (50,000 Branch unit) capsule Blood 2020-07 Yes [id number] Use as [facility] Pressure 0-04 directed ity of Kit Med & 00:00: [place] [facility] Kit 00 Medical Branch ergocalcife 2020-07 Yes [id number] Take 1 [facility] rol, 0-04 capsule by ity of vitamin d2, 00:00: mouth [place] 1,250 mcg 00 weekly. Medical (50,000 Branch unit) capsule Blood 2020-07 Yes [id number] Use as [facility] Pressure 0-04 directed ity of Kit Med & 00:00: [place] [facility] Kit 00 Medical Branch ergocalcife 2020-07 Yes [id number] Take 1 [facility] rol, 0-04 capsule by ity of vitamin d2, 00:00: mouth [place] 1,250 mcg 00 weekly. Medical (50,000 Branch unit) capsule Blood 2020-07 Yes [id number] Use as [facility] Pressure 0-04 directed ity of Kit Med & 00:00: [place] [facility] Kit Medical Branch ergocalcife 2020-07 Yes [id number] Take 1 [facility] rol, 0-04 capsule by ity of vitamin d2, 00:00: mouth [place] 1,250 mcg 00 weekly. Medical (50,000 Branch unit) capsule Blood 2020-07 Yes [id number] Use as [facility] Pressure 0-04 directed ity of Kit Med & 00:00: [place] [facility] Kit 00 Medical Branch ergocalcife 2020-07 Yes [id number] Take 1 [facility] rol, 0-04 capsule by ity of vitamin d2, 00:00: mouth [place] 1,250 mcg 00 weekly. Medical (50,000 Branch unit) capsule Blood 2020-07 Yes [id number] Use as [facility] Pressure 0-04 directed ity of Kit Med & 00:00: [place] [facility] Kit 00 Medical Branch ergocalcife 2020-07 Yes [id number] Take 1 [facility] rol, 0-04 capsule by ity of vitamin d2, 00:00: mouth [place] 1,250 mcg 00 weekly. Medical (50,000 Branch unit) capsule Blood 2020-07 Yes [id number] Use as [facility] Pressure 0-04 directed ity of Kit Med & 00:00: [place] [facility] Kit 00 Medical Branch ergocalcife 2020-07 Yes [id number] Take 1 [facility] rol, 0-04 capsule by ity of vitamin d2, 00:00: mouth [place] 1,250 mcg 00 weekly. Medical (50,000 Branch unit) capsule Blood 2020-07 Yes [id number] Use as [facility] Pressure 0-04 directed ity of Kit Med & 00:00: [place] [facility] Kit 00 Medical Branch ergocalcife 2020-07 Yes [id number] Take 1 [facility] rol, 0-04 capsule by ity of vitamin d2, 00:00: mouth [place] 1,250 mcg 00 weekly. Medical (50,000 Branch unit) capsule Blood 2020-07 Yes [id number] Use as [facility] Pressure 0-04 directed ity of Kit Med & 00:00: [place] [facility] Kit 00 Medical Branch ergocalcife 2020-07 Yes [id number] Take 1 [facility] rol, 0-04 capsule by ity of vitamin d2, 00:00: mouth [place] 1,250 mcg 00 weekly. Medical (50,000 Branch unit) capsule Blood 2020-07 Yes [id number] Use as [facility] Pressure 0-04 directed ity of Kit Med & 00:00: [place] [facility] Kit Medical Branch ergocalcife 2020-07 Yes [id number] Take 1 [facility] rol, 0-04 capsule by ity of vitamin d2, 00:00: mouth [place] 1,250 mcg 00 weekly. Medical (50,000 Branch unit) capsule Blood 2020-07 Yes [id number] Use as [facility] Pressure 0-04 directed ity of Kit Med & 00:00: [place] [facility] Kit Medical Branch ergocalcife 2020-07 Yes [id number] Take 1 [facility] rol, 0-04 capsule by ity of vitamin d2, 00:00: mouth [place] 1,250 mcg 00 weekly. Medical (50,000 Branch unit) capsule Blood 2020-07 Yes [id number] Use as [facility] Pressure 0-04 directed ity of Kit Med & 00:00: [place] [facility] Kit 00 Medical Branch ergocalcife 2020-07 Yes [id number] Take 1 [facility] rol, 0-04 capsule by ity of vitamin d2, 00:00: mouth [place] 1,250 mcg 00 weekly. Medical (50,000 Branch unit) capsule Blood 2020-07 Yes [id number] Use as [facility] Pressure 0-04 directed ity of Kit Med & 00:00: [place] [facility] Kit 00 Medical Branch ergocalcife 2020-07 Yes [id number] Take 1 [facility] rol, 0-04 capsule by ity of vitamin d2, 00:00: mouth [place] 1,250 mcg 00 weekly. Medical (50,000 Branch unit) capsule Blood 2020-07 Yes [id number] Use as [facility] Pressure 0-04 directed ity of Kit Med & 00:00: [place] [facility] Kit 00 Medical Branch ergocalcife 2020-07 Yes [id number] Take 1 [facility] rol, 0-04 capsule by ity of vitamin d2, 00:00: mouth [place] 1,250 mcg 00 weekly. Medical (50,000 Branch unit) capsule Blood 2020-07 Yes [id number] Use as [facility] Pressure 0-04 directed ity of Kit Med & 00:00: [place] [facility] Kit [facility] Branch ergocalcife 2020-07 Yes [id number] Take 1 [facility] rol, 0-04 capsule by ity of vitamin d2, 00:00: mouth [place] 1,250 mcg 00 weekly. Medical (50,000 Branch unit) capsule Blood 2020-07 Yes [id number] Use as [facility] Pressure 0-04 directed ity of Kit Med & 00:00: [place] [facility] Kit Medical Branch ergocalcife 2020-07 Yes [id number] Take 1 [facility] rol, 0-04 capsule by ity of vitamin d2, 00:00: mouth [place] 1,250 mcg 00 weekly. Medical (50,000 Branch unit) capsule Blood 2020-07 Yes [id number] Use as [facility] Pressure 0-04 directed [facility] of Kit Med & 00:00: [place] [facility] 00 Medical Branch ergocalcife 2020-07 Yes [id number] Take 1 [facility] rol, 0-04 capsule by ity of vitamin d2, 00:00: mouth [place] 1,250 mcg 00 weekly. Medical (50,000 Branch unit) capsule Blood 2020-07 Yes [id number] Use as [facility] Pressure 0-04 directed ity of Kit Med & 00:00: [place] [facility] 00 Medical Branch ergocalcife 2020-07 Yes [id number] Take 1 [facility] rol, 0-04 capsule by ity of vitamin d2, 00:00: mouth [place] 1,250 mcg 00 weekly. Medical (50,000 Branch unit) capsule Blood 2020-07 Yes [id number] Use as [facility] Pressure 0-04 directed ity of Kit Med & 00:00: [place] [facility] 00 Medical Branch ergocalcife 2020-07 Yes [id number] Take 1 [facility] rol, 0-04 capsule by ity of vitamin d2, 00:00: mouth [place] 1,250 mcg 00 weekly. Medical (50,000 Branch unit) capsule Blood 2020-07 Yes [id number] Use as [facility] Pressure 0-04 directed ity of Kit Med & 00:00: [place] [facility] 00 Medical Branch ergocalcife 2020-07 Yes [id number] Take 1 [facility] rol, 0-04 capsule by ity of vitamin d2, 00:00: mouth [place] 1,250 mcg 00 weekly. Medical (50,000 Branch unit) capsule Blood 2020-07 Yes [id number] Use as [facility] Pressure 0-04 directed ity of Kit Med & 00:00: [place] [facility] 00 Medical Branch ergocalcife 2020-07 Yes [id number] Take 1 [facility] rol, 0-04 capsule by ity of vitamin d2, 00:00: mouth [place] 1,250 mcg 00 weekly. Medical (50,000 Branch unit) capsule Blood 2020-07 Yes [id number] Use as [facility] Pressure 0-04 directed ity of Kit Med & 00:00: [place] [facility] 00 Medical Branch ergocalcife 2020-07 Yes [id number] Take 1 [facility] rol, 0-04 capsule by ity of vitamin d2, 00:00: mouth [place] 1,250 mcg 00 weekly. Medical (50,000 Branch unit) capsule Blood 2020-07 Yes [id number] Use as [facility] Pressure 0-04 directed ity of Kit Med & 00:00: [place] [facility] 00 Medical Branch ergocalcife 2020-07 Yes [id number] Take 1 [facility] rol, 0-04 capsule by ity of vitamin d2, 00:00: mouth [place] 1,250 mcg 00 weekly. Medical (50,000 Branch unit) capsule Blood 2020-07 Yes [id number] Use as [facility] Pressure 0-04 directed ity of Kit Med & 00:00: [place] [facility] 00 Medical Branch ergocalcife 2020-07 Yes [id number] Take 1 [facility] rol, 0-04 capsule by ity of vitamin d2, 00:00: mouth [place] 1,250 mcg 00 weekly. Medical (50,000 Branch unit) capsule Blood 2020-07 Yes [id number] Use as [facility] Pressure 0-04 directed ity of Kit Med & 00:00: [place] [facility] 00 Medical Branch ergocalcife 2020-07 Yes [id number] Take 1 [facility] rol, 0-04 capsule by ity of vitamin d2, 00:00: mouth [place] 1,250 mcg 00 weekly. Medical (50,000 Branch unit) capsule Blood 2020-07 Yes [id number] Use as [facility] Pressure 0-04 directed ity of Kit Med & 00:00: [place] [facility] 00 Medical Branch ergocalcife 2020-07 Yes [id number] Take 1 [facility] rol, 0-04 capsule by ity of vitamin d2, 00:00: mouth [place] 1,250 mcg 00 weekly. Medical (50,000 Branch unit) capsule Blood 2020-07 Yes [id number] Use as [facility] Pressure 0-04 directed ity of Kit Med & 00:00: [place] [facility] Medical Branch ergocalcife 2020-07 Yes [id number] Take 1 [facility] rol, 0-04 capsule by ity of vitamin d2, 00:00: mouth [place] 1,250 mcg 00 weekly. Medical (50,000 Branch unit) capsule Blood 2020-07 Yes [id number] Use as [facility] Pressure 0-04 directed ity of Kit Med & 00:00: [place] [facility] 00 Medical Branch ergocalcife 2020-07 Yes [id number] Take 1 [facility] rol, 0-04 capsule by ity of vitamin d2, 00:00: mouth [place] 1,250 mcg 00 weekly. Medical (50,000 Branch unit) capsule Blood 2020-07 Yes [id number] Use as [facility] Pressure 0-04 directed ity of Kit Med & 00:00: [place] [facility] 00 Medical Branch ergocalcife 2020-07 Yes [id number] Take 1 [facility] rol, 0-04 capsule by ity of vitamin d2, 00:00: mouth [place] 1,250 mcg 00 weekly. Medical (50,000 Branch unit) capsule Blood 2020-07 Yes [id number] Use as [facility] Pressure 0-04 directed ity of Kit Med & 00:00: [place] [facility] 00 Medical Branch ergocalcife 2020-07 Yes [id number] Take 1 [facility] rol, 0-04 capsule by ity of vitamin d2, 00:00: mouth [place] 1,250 mcg 00 weekly. Medical (50,000 Branch unit) capsule Blood 2020-07 Yes [id number] Use as [facility] Pressure 0-04 directed ity of Kit Med & 00:00: [place] [facility] 00 Medical Branch ergocalcife 2020-07 Yes [id number] Take 1 [facility] rol, 0-04 capsule by ity of vitamin d2, 00:00: mouth [place] 1,250 mcg 00 weekly. Medical (50,000 Branch unit) capsule Blood 2020-07 Yes [id number] Use as [facility] Pressure 0-04 directed ity of Kit Med & 00:00: [place] [facility] 00 Medical Branch ergocalcife 2020-07 Yes [id number] Take 1 [facility] rol, 0-04 capsule by ity of vitamin d2, 00:00: mouth [place] 1,250 mcg 00 weekly. Medical (50,000 Branch unit) capsule Blood 2020-07 Yes [id number] Use as [facility] Pressure 0-04 directed ity of Kit Med & 00:00: [place] [facility] Medical Branch ergocalcife 2020-07 Yes [id number] Take 1 [facility] rol, 0-04 capsule by ity of vitamin d2, 00:00: mouth [place] 1,250 mcg 00 weekly. Medical (50,000 Branch unit) capsule Blood 2020-07 Yes [id number] Use as [facility] Pressure 0-04 directed ity of Kit Med & 00:00: [place] [facility] Medical Branch ergocalcife 2020-07 Yes [id number] Take 1 [facility] rol, 0-04 capsule by ity of vitamin d2, 00:00: mouth [place] 1,250 mcg 00 weekly. Medical (50,000 Branch unit) capsule Blood 2020-07 Yes [id number] Use as [facility] Pressure 0-04 directed ity of Kit Med & 00:00: [place] [facility] 00 Medical Branch ergocalcife 2020-07 Yes [id number] Take 1 [facility] rol, 0-04 capsule by ity of vitamin d2, 00:00: mouth [place] 1,250 mcg 00 weekly. Medical (50,000 Branch unit) capsule Blood 2020-07 Yes [id number] Use as [facility] Pressure 0-04 directed ity of Kit Med & 00:00: [place] [facility] 00 Medical Branch ergocalcife 2020-07 Yes [id number] Take 1 [facility] rol, 0-04 capsule by ity of vitamin d2, 00:00: mouth [place] 1,250 mcg 00 weekly. Medical (50,000 Branch unit) capsule Blood 2020-07 Yes [id number] Use as [facility] Pressure 0-04 directed ity of Kit Med & 00:00: [place] [facility] 00 Medical Branch ergocalcife 2020-07 Yes [id number] Take 1 [facility] rol, 0-04 capsule by ity of vitamin d2, 00:00: mouth [place] 1,250 mcg 00 weekly. Medical (50,000 Branch unit) capsule Blood 2020-07 Yes [id number] Use as [facility] Pressure 0-04 directed ity of Kit Med & 00:00: [place] [facility] Medical Branch ergocalcife 2020-07 Yes [id number] Take 1 [facility] rol, 0-04 capsule by ity of vitamin d2, 00:00: mouth [place] 1,250 mcg 00 weekly. Medical (50,000 Branch unit) capsule Blood 2020-07 Yes [id number] Use as [facility] Pressure 0-04 directed ity of Kit Med & 00:00: [place] [facility] Medical Branch ergocalcife 2020-07 Yes [id number] Take 1 [facility] rol, 0-04 capsule by ity of vitamin d2, 00:00: mouth [place] 1,250 mcg 00 weekly. Medical (50,000 Branch unit) capsule Blood 2020-07 Yes [id number] Use as [facility] Pressure 0-04 directed ity of Kit Med & 00:00: [place] [facility] 00 Medical Branch ergocalcife 2020-07 Yes [id number] Take 1 [facility] rol, 0-04 capsule by ity of vitamin d2, 00:00: mouth [place] 1,250 mcg 00 weekly. Medical (50,000 Branch unit) capsule Blood 2020-07 Yes [id number] Use as [facility] Pressure 0-04 directed ity of Kit Med & 00:00: [place] [facility] Medical Branch ergocalcife 2020-07 Yes [id number] Take 1 [facility] rol, 0-04 capsule by ity of vitamin d2, 00:00: mouth [place] 1,250 mcg 00 weekly. Medical (50,000 Branch unit) capsule Blood 2020-07 Yes [id number] Use as [facility] Pressure 0-04 directed ity of Kit Med & 00:00: [place] [facility] 00 Medical Branch ergocalcife 2020-07 Yes [id number] Take 1 [facility] rol, 0-04 capsule by ity of vitamin d2, 00:00: mouth [place] 1,250 mcg 00 weekly. Medical (50,000 Branch unit) capsule Blood 2020-07 Yes [id number] Use as [facility] Pressure 0-04 directed ity of Kit Med & 00:00: [place] [facility] 00 Medical Branch ergocalcife 2020-07 Yes [id number] Take 1 [facility] rol, 0-04 capsule by ity of vitamin d2, 00:00: mouth [place] 1,250 mcg 00 weekly. Medical (50,000 Branch unit) capsule Blood 2020-07 Yes [id number] Use as [facility] Pressure 0-04 directed ity of Kit Med & 00:00: [place] [facility] Medical Branch ergocalcife 2020-07 Yes [id number] Take 1 [facility] rol, 0-04 capsule by ity of vitamin d2, 00:00: mouth [place] 1,250 mcg 00 weekly. Medical (50,000 Branch unit) capsule Blood 2020-07 Yes [id number] Use as [facility] Pressure 0-04 directed ity of Kit Med & 00:00: [place] [facility] Medical Branch ergocalcife 2020-07 Yes [id number] Take 1 [facility] rol, 0-04 capsule by ity of vitamin d2, 00:00: mouth [place] 1,250 mcg 00 weekly. Medical (50,000 Branch unit) capsule Blood 2020-07 Yes [id number] Use as [facility] Pressure 0-04 directed ity of Kit Med & 00:00: [place] [facility] 00 Medical Branch ergocalcife 2020-07 Yes [id number] Take 1 [facility] rol, 0-04 capsule by ity of vitamin d2, 00:00: mouth [place] 1,250 mcg 00 weekly. Medical (50,000 Branch unit) capsule Blood 2020-07 Yes [id number] Use as [facility] Pressure 0-04 directed ity of Kit Med & 00:00: [place] [facility] 00 Medical Branch ergocalcife 2020-07 Yes [id number] Take 1 [facility] rol, 0-04 capsule by ity of vitamin d2, 00:00: mouth [place] 1,250 mcg 00 weekly. Medical (50,000 Branch unit) capsule Blood 2020-07 Yes [id number] Use as [facility] Pressure 0-04 directed ity of Kit Med & 00:00: [place] [facility] 00 Medical Branch ergocalcife 2020-07 Yes [id number] Take 1 [facility] rol, 0-04 capsule by ity of vitamin d2, 00:00: mouth [place] 1,250 mcg 00 weekly. Medical (50,000 Branch unit) capsule Blood 2020-07 Yes [id number] Use as [facility] Pressure 0-04 directed ity of Kit Med & 00:00: [place] [facility] 00 Medical Branch ergocalcife 2020-07 Yes [id number] Take 1 [facility] rol, 0-04 capsule by ity of vitamin d2, 00:00: mouth [place] 1,250 mcg 00 weekly. Medical (50,000 Branch unit) capsule Blood 2020-07 Yes [id number] Use as [facility] Pressure 0-04 directed ity of Kit Med & 00:00: [place] [facility] Medical Branch ergocalcife 2020-07 Yes [id number] Take 1 [facility] rol, 0-04 capsule by ity of vitamin d2, 00:00: mouth [place] 1,250 mcg 00 weekly. Medical (50,000 Branch unit) capsule Blood 2020-07 Yes [id number] Use as [facility] Pressure 0-04 directed ity of Kit Med & 00:00: [place] [facility] 00 Medical Branch ergocalcife 2020-07 Yes [id number] Take 1 [facility] rol, 0-04 capsule by ity of vitamin d2, 00:00: mouth [place] 1,250 mcg 00 weekly. Medical (50,000 Branch unit) capsule Blood 2020-07 Yes [id number] Use as [facility] Pressure 0-04 directed ity of Kit Med & 00:00: [place] [facility] 00 Medical Branch ergocalcife 2020-07 Yes [id number] Take 1 [facility] rol, 0-04 capsule by ity of vitamin d2, 00:00: mouth [place] 1,250 mcg 00 weekly. Medical (50,000 Branch unit) capsule Blood 2020-07 Yes [id number] Use as [facility] Pressure 0-04 directed ity of Kit Med & 00:00: [place] [facility] 00 Medical Branch ergocalcife 2020-07 Yes [id number] Take 1 [facility] rol, 0-04 capsule by ity of vitamin d2, 00:00: mouth [place] 1,250 mcg 00 weekly. Medical (50,000 Branch unit) capsule Blood 2020-07 Yes [id number] Use as [facility] Pressure 0-04 directed ity of Kit Med & 00:00: [place] [facility] 00 Medical Branch ergocalcife 2020-07 Yes [id number] Take 1 [facility] rol, 0-04 capsule by ity of vitamin d2, 00:00: mouth [place] 1,250 mcg 00 weekly. Medical (50,000 Branch unit) capsule Blood 2020-07 Yes [id number] Use as [facility] Pressure 0-04 directed ity of Kit Med & 00:00: [place] [facility] 00 Medical Branch ergocalcife 2020-07 Yes [id number] Take 1 [facility] rol, 0-04 capsule by ity of vitamin d2, 00:00: mouth [place] 1,250 mcg 00 weekly. Medical (50,000 Branch unit) capsule Blood 2020-07 Yes [id number] Use as [facility] Pressure 0-04 directed ity of Kit Med & 00:00: [place] [facility] 00 Medical Branch ergocalcife 2020-07 Yes [id number] Take 1 [facility] rol, 0-04 capsule by ity of vitamin d2, 00:00: mouth [place] 1,250 mcg 00 weekly. Medical (50,000 Branch unit) capsule Blood 2020-07 Yes [id number] Use as [facility] Pressure 0-04 directed ity of Kit Med & 00:00: [place] [facility] 00 Medical Branch foLIC acid 2020-07- No [id number] 1mg Take 1 [facility] 1 mg tablet 0-04 04-05 tablet by it y of 00:00: 00:00 mouth [place] 00 :00 daily. Medical Branch hydrOXYchlo 2020-07- No [id number] 400mg Take 2 [facility] roQUINE 200 0-04 04-03 tablets by i ty of mg tablet 00:00: 04:59 mouth [place] 00 :00 daily for Medical 180 days. Branch ferrous 2020-07- No [id number] 325mg Take 1 Un violeta sulfate 325 0-04 -19 tablet by it y of mg (65 mg 00:00: 00:00 mouth [place] iron) 00 :00 every Medical tablet other day. Branch metFORMIN 2020- No [id number] 500mg Take 1 [facility] 500 mg 24 04-09 tablet by ity of hr tablet 00:00: 00:00 mouth [place] 00 :00 daily with Medical breakfast. Branch LISINOPRIL- 2020- No [id number] TAKE 1 Univers HYDROCHLORO -13 - TABLET BY it y of THIAZIDE 00:00: 00:00 MOUTH [place] 20-12.5 mg 00 :00 EVERY DAY Medi julian per tablet Branch zolpidem 5 2020- No [id number] 5mg Take 1 [facility] mg tablet 03-11 tablet by ity of 00:00: 00:00 mouth at [place] 00 :00 bedtime as Medical needed for Branch Insomnia. HYDROXYCHLO 2020- No [id number] TAKE 2 [facility] ROQUINE 200 -16 - TABLETS BY i ty of mg tablet 00:00: 00:00 MOUTH [place] 00 :00 EVERY DAY Medical Branch atorvastati 2021- No [id number] 10mg Take 1 [facility] n 10 mg 03-03 tablet by ity of tablet 00:00: 00:00 mouth at [place] 00 :00 bedtime. Medical Branch atorvastati 2021- No [id number] 10mg Take 1 [facility] n 10 mg 03-03 tablet by ity of tablet 00:00: 00:00 mouth at [place] 00 :00 bedtime. Medical Branch ibuprofen 2020- No [id number] 800mg Take 1 [facility] 800 mg 7-30 - tablet by ity of tablet 00:00: 00:00 mouth [place] 00 :00 every 6 Medical (six) Branch hours as needed for Pain (scale 4-6). gabapentin 2020- No [id number] 300mg Take 1 [facility] 300 mg 01-31- capsule by ity of capsule 00:00: 00:00 mouth 3 [place] 00 :00 (three) Medical times Branch daily. ondansetron 2020- No [id number] 4mg Take 1 [facility] (ZOFRAN) 4 6-18 05-04 tablet by ity of mg tablet 00:00: 00:00 mouth [place] 00 :00 every 6 Medical (six) Branch hours. Blood-Gluco 1-0 Yes [id number] Use as [facility] se Meter 6-08 directed ity of (ONETOUCH 00:00: [place] VERIO FLEX 00 Medical METER) Misc Branch lancets 1-0 Yes [id number] Use as Univ ers (ONETOUCH 6-08 directed ity of DELICA PLUS 00:00: [place] LANCET) 33 00 Medical gauge Misc Branch Blood-Gluco 2020-0 Yes [id number] Use as [facility] se Meter 6-08 directed ity of (ONETOUCH 00:00: [place] VERIO FLEX 00 Medical METER) Misc Branch lancets 2020-0 Yes [id number] Use as Univ ers (ONETOUCH 6-08 directed ity of DELICA PLUS 00:00: [place] LANCET) 33 00 Medical gauge Misc Branch Blood-Gluco 2020-0 Yes [id number] Use as [facility] se Meter 6-08 directed ity of (ONETOUCH 00:00: [place] VERIO FLEX 00 Medical METER) Misc Branch lancets 2020-0 Yes [id number] Use as Univ ers (ONETOUCH 6-08 directed ity of DELICA PLUS 00:00: [place] LANCET) 33 00 Medical gauge Misc Branch Blood-Gluco 1-0 Yes [id number] Use as [facility] se Meter 6-08 directed ity of (ONETOUCH 00:00: [place] VERIO FLEX 00 Medical METER) Misc Branch lancets 1-0 Yes [id number] Use as Univ ers (ONETOUCH 6-08 directed ity of DELICA PLUS 00:00: [place] LANCET) 33 00 Medical gauge Misc Branch Blood-Gluco 2021-0 Yes [id number] Use as [facility] se Meter 6-08 directed ity of (ONETOUCH 00:00: [place] VERIO FLEX 00 Medical METER) Misc Branch lancets 1-0 Yes [id number] Use as Univ ers (ONETOUCH 6-08 directed ity of DELICA PLUS 00:00: [place] LANCET) 33 00 Medical gauge Misc Branch Blood-Gluco 2021-0 Yes [id number] Use as [facility] se Meter 6-08 directed ity of (ONETOUCH 00:00: [place] VERIO FLEX 00 Medical METER) Misc Branch lancets 2021-0 Yes [id number] Use as Univ ers (ONETOUCH 6-08 directed ity of DELICA PLUS 00:00: [place] LANCET) 33 00 Medical gauge Misc Branch Blood-Gluco 2021-0 Yes [id number] Use as [facility] se Meter 6-08 directed ity of (ONETOUCH 00:00: [place] VERIO FLEX 00 Medical METER) Misc Branch lancets 2021-0 Yes [id number] Use as Univ ers (ONETOUCH 6-08 directed ity of DELICA PLUS 00:00: [place] LANCET) 33 00 Medical gauge Misc Branch Blood-Gluco 2021-0 Yes [id number] Use as [facility] se Meter 6-08 directed ity of (ONETOUCH 00:00: [place] VERIO FLEX 00 Medical METER) Misc Branch lancets 2020-0 Yes [id number] Use as Univ ers (ONETOUCH 6-08 directed ity of DELICA PLUS 00:00: [place] LANCET) 33 00 Medical gauge Misc Branch Blood-Gluco 1-0 Yes [id number] Use as [facility] se Meter 6-08 directed ity of (ONETOUCH 00:00: [place] VERIO FLEX 00 Medical METER) Misc Branch lancets 1-0 Yes [id number] Use as Univ ers (ONETOUCH 6-08 directed ity of DELICA PLUS 00:00: [place] LANCET) 33 00 Medical gauge Misc Branch Blood-Gluco 1-0 Yes [id number] Use as [facility] se Meter 6-08 directed ity of (ONETOUCH 00:00: [place] VERIO FLEX 00 Medical METER) Misc Branch lancets 2021-0 Yes [id number] Use as Univ ers (ONETOUCH 6-08 directed ity of DELICA PLUS 00:00: [place] LANCET) 33 00 Medical gauge Misc Branch Blood-Gluco 2021-0 Yes [id number] Use as [facility] se Meter 6-08 directed ity of (ONETOUCH 00:00: [place] VERIO FLEX 00 Medical METER) Misc Branch lancets 2021-0 Yes [id number] Use as Univ ers (ONETOUCH 6-08 directed ity of DELICA PLUS 00:00: [place] LANCET) 33 00 Medical gauge Misc Branch Blood-Gluco 2021-0 Yes [id number] Use as [facility] se Meter 6-08 directed ity of (ONETOUCH 00:00: [place] VERIO FLEX 00 Medical METER) Misc Branch lancets 2021-0 Yes [id number] Use as Univ ers (ONETOUCH 6-08 directed ity of DELICA PLUS 00:00: [place] LANCET) 33 00 Medical gauge Misc Branch Blood-Gluco 2021-0 Yes [id number] Use as [facility] se Meter 6-08 directed ity of (ONETOUCH 00:00: [place] VERIO FLEX 00 Medical METER) Misc Branch lancets 2021-0 Yes [id number] Use as Univ ers (ONETOUCH 6-08 directed ity of DELICA PLUS 00:00: [place] LANCET) 33 00 Medical gauge Misc Branch Blood-Gluco 2021-0 Yes [id number] Use as [facility] se Meter 6-08 directed ity of (ONETOUCH 00:00: [place] VERIO FLEX 00 Medical METER) Misc Branch lancets 1-0 Yes [id number] Use as Univ ers (ONETOUCH 6-08 directed ity of DELICA PLUS 00:00: [place] LANCET) 33 00 Medical gauge Misc Branch Blood-Gluco 2021-0 Yes [id number] Use as [facility] se Meter 6-08 directed ity of (ONETOUCH 00:00: [place] VERIO FLEX 00 Medical METER) Misc Branch lancets 1-0 Yes [id number] Use as Univ ers (ONETOUCH 6-08 directed ity of DELICA PLUS 00:00: [place] LANCET) 33 00 Medical gauge Misc Branch Blood-Gluco 2021-0 Yes [id number] Use as [facility] se Meter 6-08 directed ity of (ONETOUCH 00:00: [place] VERIO FLEX 00 Medical METER) Misc Branch lancets 2021-0 Yes [id number] Use as Univ ers (ONETOUCH 6-08 directed ity of DELICA PLUS 00:00: [place] LANCET) 33 00 Medical gauge Misc Branch Blood-Gluco 2021-0 Yes [id number] Use as [facility] se Meter 6-08 directed ity of (ONETOUCH 00:00: [place] VERIO FLEX 00 Medical METER) Misc Branch lancets 2021-0 Yes [id number] Use as Univ ers (ONETOUCH 6-08 directed ity of DELICA PLUS 00:00: [place] LANCET) 33 00 Medical gauge Misc Branch Blood-Gluco 2021-0 Yes [id number] Use as [facility] se Meter 6-08 directed ity of (ONETOUCH 00:00: [place] VERIO FLEX 00 Medical METER) Misc Branch lancets 2021-0 Yes [id number] Use as Univ ers (ONETOUCH 6-08 directed ity of DELICA PLUS 00:00: [place] LANCET) 33 00 Medical gauge Misc Branch Blood-Gluco 2021-0 Yes [id number] Use as [facility] se Meter 6-08 directed ity of (ONETOUCH 00:00: [place] VERIO FLEX 00 Medical METER) Misc Branch lancets 2021-0 Yes [id number] Use as Univ ers (ONETOUCH 6-08 directed ity of DELICA PLUS 00:00: [place] LANCET) 33 00 Medical gauge Misc Branch Blood-Gluco 2021-0 Yes [id number] Use as [facility] se Meter 6-08 directed ity of (ONETOUCH 00:00: [place] VERIO FLEX 00 Medical METER) Misc Branch lancets 2021-0 Yes [id number] Use as Univ ers (ONETOUCH 6-08 directed ity of DELICA PLUS 00:00: [place] LANCET) 33 00 Medical gauge Misc Branch Blood-Gluco 2021-0 Yes [id number] Use as [facility] se Meter 6-08 directed ity of (ONETOUCH 00:00: [place] VERIO FLEX 00 Medical METER) Misc Branch lancets 2021-0 Yes [id number] Use as Univ ers (ONETOUCH 6-08 directed ity of DELICA PLUS 00:00: [place] LANCET) 33 00 Medical gauge Misc Branch Blood-Gluco 2021-0 Yes [id number] Use as [facility] se Meter 6-08 directed ity of (ONETOUCH 00:00: [place] VERIO FLEX 00 Medical METER) Misc Branch lancets 2021-0 Yes [id number] Use as Univ ers (ONETOUCH 6-08 directed ity of DELICA PLUS 00:00: [place] LANCET) 33 00 Medical gauge Misc Branch Blood-Gluco 2021-0 Yes [id number] Use as [facility] se Meter 6-08 directed ity of (ONETOUCH 00:00: [place] VERIO FLEX 00 Medical METER) Misc Branch lancets 2021-0 Yes [id number] Use as Univ ers (ONETOUCH 6-08 directed ity of DELICA PLUS 00:00: [place] LANCET) 33 00 Medical gauge Misc Branch Blood-Gluco 2021-0 Yes [id number] Use as [facility] se Meter 6-08 directed ity of (ONETOUCH 00:00: [place] VERIO FLEX 00 Medical METER) Misc Branch lancets 2021-0 Yes [id number] Use as Univ ers (ONETOUCH 6-08 directed ity of DELICA PLUS 00:00: [place] LANCET) 33 00 Medical gauge Misc Branch Blood-Gluco 2021-0 Yes [id number] Use as [facility] se Meter 6-08 directed ity of (ONETOUCH 00:00: [place] VERIO FLEX 00 Medical METER) Misc Branch lancets 1-0 Yes [id number] Use as Univ ers (ONETOUCH 6-08 directed ity of DELICA PLUS 00:00: [place] LANCET) 33 00 Medical gauge Misc Branch Blood-Gluco 2020-0 Yes [id number] Use as [facility] se Meter 6-08 directed ity of (ONETOUCH 00:00: [place] VERIO FLEX 00 Medical METER) Misc Branch lancets 1-0 Yes [id number] Use as Univ ers (ONETOUCH 6-08 directed ity of DELICA PLUS 00:00: [place] LANCET) 33 00 Medical gauge Misc Branch Blood-Gluco 1-0 Yes [id number] Use as [facility] se Meter 6-08 directed ity of (ONETOUCH 00:00: [place] VERIO FLEX 00 Medical METER) Misc Branch lancets 2021-0 Yes [id number] Use as Univ ers (ONETOUCH 6-08 directed ity of DELICA PLUS 00:00: [place] LANCET) 33 00 Medical gauge Misc Branch Blood-Gluco 2021-0 Yes [id number] Use as [facility] se Meter 6-08 directed ity of (ONETOUCH 00:00: [place] VERIO FLEX 00 Medical METER) Misc Branch lancets 2021-0 Yes [id number] Use as Univ ers (ONETOUCH 6-08 directed ity of DELICA PLUS 00:00: [place] LANCET) 33 00 Medical gauge Misc Branch Blood-Gluco 2021-0 Yes [id number] Use as [facility] se Meter 6-08 directed ity of (ONETOUCH 00:00: [place] VERIO FLEX 00 Medical METER) Misc Branch lancets 2021-0 Yes [id number] Use as Univ ers (ONETOUCH 6-08 directed ity of DELICA PLUS 00:00: [place] LANCET) 33 00 Medical gauge Misc Branch Blood-Gluco 2021-0 Yes [id number] Use as [facility] se Meter 6-08 directed ity of (ONETOUCH 00:00: [place] VERIO FLEX 00 Medical METER) Misc Branch lancets 2021-0 Yes [id number] Use as Univ ers (ONETOUCH 6-08 directed ity of DELICA PLUS 00:00: [place] LANCET) 33 00 Medical gauge Misc Branch Blood-Gluco 2021-0 Yes [id number] Use as [facility] se Meter 6-08 directed ity of (ONETOUCH 00:00: [place] VERIO FLEX 00 Medical METER) Misc Branch lancets 2021-0 Yes [id number] Use as Univ ers (ONETOUCH 6-08 directed ity of DELICA PLUS 00:00: [place] LANCET) 33 00 Medical gauge Misc Branch Blood-Gluco 2021-0 Yes [id number] Use as [facility] se Meter 6-08 directed ity of (ONETOUCH 00:00: [place] VERIO FLEX 00 Medical METER) Misc Branch lancets 2021-0 Yes [id number] Use as Univ ers (ONETOUCH 6-08 directed ity of DELICA PLUS 00:00: [place] LANCET) 33 00 Medical gauge Misc Branch Blood-Gluco 2021-0 Yes [id number] Use as [facility] se Meter 6-08 directed ity of (ONETOUCH 00:00: [place] VERIO FLEX 00 Medical METER) Misc Branch lancets 2021-0 Yes [id number] Use as Univ ers (ONETOUCH 6-08 directed ity of DELICA PLUS 00:00: [place] LANCET) 33 00 Medical gauge Misc Branch Blood-Gluco 2021-0 Yes [id number] Use as [facility] se Meter 6-08 directed ity of (ONETOUCH 00:00: [place] VERIO FLEX 00 Medical METER) Misc Branch lancets 2021-0 Yes [id number] Use as Univ ers (ONETOUCH 6-08 directed ity of DELICA PLUS 00:00: [place] LANCET) 33 00 Medical gauge Misc Branch Blood-Gluco 2021-0 Yes [id number] Use as [facility] se Meter 6-08 directed ity of (ONETOUCH 00:00: [place] VERIO FLEX 00 Medical METER) Misc Branch lancets 2021-0 Yes [id number] Use as Univ ers (ONETOUCH 6-08 directed ity of DELICA PLUS 00:00: [place] LANCET) 33 00 Medical gauge Misc Branch Blood-Gluco 2021-0 Yes [id number] Use as Univers se Meter 6-08 directed ity of (ONETOUCH 00:00: [place] VERIO FLEX 00 Medical METER) Misc Branch lancets 1-0 Yes [id number] Use as Univ ers (ONETOUCH 6-08 directed ity of DELICA PLUS 00:00: [place] LANCET) 33 00 Medical gauge Misc Branch Blood-Gluco 2021-0 Yes [id number] Use as Univers se Meter 6-08 directed ity of (ONETOUCH 00:00: [place] VERIO FLEX 00 Medical METER) Misc Branch lancets 1-0 Yes [id number] Use as Univ ers (ONETOUCH 6-08 directed ity of DELICA PLUS 00:00: [place] LANCET) 33 00 Medical gauge Misc Branch Blood-Gluco 1-0 Yes [id number] Use as [facility] 6-08 directed ity of (ONETOUCH 00:00: [place] VERIO FLEX 00 Medical METER) Misc Branch lancets 1-0 Yes [id number] Use as [facility] (ONETOUCH 6-08 directed ity of DEL[place] PLUS 00:00: [place] LANCET) 33 00 Medical gauge Misc Branch Blood-Gluco 1-0 Yes [id number] Use as [facility] 6-08 directed ity of (ONETOUCH 00:00: [place] VERIO FLEX 00 Medical METER) Misc Branch lancets 2021-0 Yes [id number] Use as [facility] (ONETOUCH 6-08 directed ity of DEL[place] PLUS 00:00: [place] LANCET) 33 00 Medical gauge Misc Branch Blood-Gluco 2021-0 Yes [id number] Use as [facility] M[facility] 6-08 directed ity of (ONETOUCH 00:00: [place] VERIO FLEX 00 Medical METER) Misc Branch lancets 2021-0 Yes [id number] Use as [facility] (ONETOUCH 6-08 directed ity of DEL[place] PLUS 00:00: [place] LANCET) 33 00 Medical gauge Misc Branch Blood-Gluco 2021-0 Yes [id number] Use as [facility] M[facility] 6-08 directed ity of (ONETOUCH 00:00: [place] VERIO FLEX 00 Medical METER) Misc Branch lancets 2021-0 Yes [id number] Use as [facility] (ONETOUCH 6-08 directed ity of DEL[place] PLUS 00:00: [place] LANCET) 33 00 Medical gauge Misc Branch Blood-Gluco 2021-0 Yes [id number] Use as [facility] se Meter 6-08 directed ity of (ONETOUCH 00:00: [place] VERIO FLEX 00 Medical METER) Misc Branch lancets 2021-0 Yes [id number] Use as [facility] (ONETOUCH 6-08 directed ity of DEL[place] PLUS 00:00: [place] LANCET) 33 00 Medical gauge Misc Branch Blood-Gluco 2021-0 Yes [id number] Use as [facility] se Meter 6-08 directed ity of (ONETOUCH 00:00: [place] VERIO FLEX 00 Medical METER) Misc Branch lancets 2021-0 Yes [id number] Use as [facility] (ONETOUCH 6-08 directed ity of DEL[place] PLUS 00:00: [place] LANCET) 33 00 Medical gauge Misc Branch Blood-Gluco 2021-0 Yes [id number] Use as [facility] se Meter 6-08 directed ity of (ONETOUCH 00:00: [place] VERIO FLEX 00 Medical METER) Misc Branch lancets 1-0 Yes [id number] Use as [facility] (ONETOUCH 6-08 directed ity of DEL[place] PLUS 00:00: [place] LANCET) 33 00 Medical gauge Misc Branch Blood-Gluco 2021-0 Yes [id number] Use as [facility] M[facility] 6-08 directed ity of (ONETOUCH 00:00: [place] VERIO FLEX 00 Medical METER) Misc Branch lancets 2021-0 Yes [id number] Use as [facility] (ONETOUCH 6-08 directed ity of DEL[place] PLUS 00:00: [place] LANCET) 33 00 Medical gauge Misc Branch Blood-Gluco 2021-0 Yes [id number] Use as [facility] M[facility] 6-08 directed ity of (ONETOUCH 00:00: [place] VERIO FLEX 00 Medical METER) Misc Branch lancets 2021-0 Yes [id number] Use as [facility] (ONETOUCH 6-08 directed ity of DEL[place] PLUS 00:00: [place] LANCET) 33 00 Medical gauge Misc Branch Blood-Gluco 2021-0 Yes [id number] Use as [facility] 6-08 directed ity of (ONETOUCH 00:00: [place] VERIO FLEX 00 Medical METER) Misc Branch lancets 2021-0 Yes [id number] Use as [facility] (ONETOUCH 6-08 directed ity of DEL[place] PLUS 00:00: [place] LANCET) 33 00 Medical gauge Misc Branch Blood-Gluco 2021-0 Yes [id number] Use as [facility] 6-08 directed ity of (ONETOUCH 00:00: [place] VERIO FLEX 00 Medical METER) Misc Branch lancets 2021-0 Yes [id number] Use as [facility] (ONETOUCH 6-08 directed ity of DEL[place] PLUS 00:00: [place] LANCET) 33 00 Medical gauge Misc Branch Blood-Gluco 2021-0 Yes [id number] Use as [facility] M[facility] 6-08 directed ity of (ONETOUCH 00:00: [place] VERIO FLEX 00 Medical METER) Misc Branch lancets 2021-0 Yes [id number] Use as [facility] (ONETOUCH 6-08 directed ity of DEL[place] PLUS 00:00: [place] LANCET) 33 00 Medical gauge Misc Branch Blood-Gluco 2021-0 Yes [id number] Use as [facility] 6-08 directed ity of (ONETOUCH 00:00: [place] VERIO FLEX 00 Medical METER) Misc Branch lancets 2021-0 Yes [id number] Use as [facility] ers (ONETOUCH 6-08 directed ity of DEL[place] PLUS 00:00: [place] LANCET) 33 00 Medical gauge Misc Branch Blood-Gluco 2021-0 Yes [id number] Use as [facility] M[facility] 6-08 directed ity of (ONETOUCH 00:00: [place] VERIO FLEX 00 Medical METER) Misc Branch lancets 2021-0 Yes [id number] Use as [facility] ers (ONETOUCH 6-08 directed ity of DEL[place] PLUS 00:00: [place] LANCET) 33 00 Medical gauge Misc Branch Blood-Gluco 2021-0 Yes [id number] Use as [facility] se M[facility] 6-08 directed ity of (ONETOUCH 00:00: [place] VERIO FLEX 00 Medical METER) Misc Branch lancets 2021-0 Yes [id number] Use as [facility] ers (ONETOUCH 6-08 directed ity of DEL[place] PLUS 00:00: [place] LANCET) 33 00 Medical gauge Misc Branch Blood-Gluco 2021-0 Yes [id number] Use as [facility] se Meter 6-08 directed ity of (ONETOUCH 00:00: [place] VERIO FLEX 00 Medical METER) Misc Branch lancets 2021-0 Yes [id number] Use as [facility] ers (ONETOUCH 6-08 directed ity of DEL[place] PLUS 00:00: [place] LANCET) 33 00 Medical gauge Misc Branch Blood-Gluco 2021-0 Yes [id number] Use as [facility] M[facility] 6-08 directed ity of (ONETOUCH 00:00: [place] VERIO FLEX 00 Medical METER) Misc Branch lancets 2021-0 Yes [id number] Use as [facility] ers (ONETOUCH 6-08 directed ity of DEL[place] PLUS 00:00: [place] LANCET) 33 00 Medical gauge Misc Branch Blood-Gluco 2021-0 Yes [id number] Use as [facility] M[facility] 6-08 directed ity of (ONETOUCH 00:00: [place] VERIO FLEX 00 Medical METER) Misc Branch lancets 2021-0 Yes [id number] Use as [facility] ers (ONETOUCH 6-08 directed ity of DEL[place] PLUS 00:00: [place] LANCET) 33 00 Medical gauge Misc Branch Blood-Gluco 2021-0 Yes [id number] Use as [facility] se M[facility] 6-08 directed ity of (ONETOUCH 00:00: [place] VERIO FLEX 00 Medical METER) Misc Branch lancets 2021-0 Yes [id number] Use as [facility] ers (ONETOUCH 6-08 directed ity of DEL[place] PLUS 00:00: [place] LANCET) 33 00 Medical gauge Misc Branch Blood-Gluco 2021-0 Yes [id number] Use as [facility] M[facility] 6-08 directed ity of (ONETOUCH 00:00: [place] VERIO FLEX 00 Medical METER) Misc Branch lancets 2021-0 Yes [id number] Use as [facility] ers (ONETOUCH 6-08 directed ity of DEL[place] PLUS 00:00: [place] LANCET) 33 00 Medical gauge Misc Branch Blood-Gluco 2021-0 Yes [id number] Use as [facility] M[facility] 6-08 directed ity of (ONETOUCH 00:00: [place] VERIO FLEX 00 Medical METER) Misc Branch lancets 2021-0 Yes [id number] Use as [facility] ers (ONETOUCH 6-08 directed ity of DEL[place] PLUS 00:00: [place] LANCET) 33 00 Medical gauge Misc Branch Blood-Gluco 2021-0 Yes [id number] Use as [facility] M[facility] 6-08 directed ity of (ONETOUCH 00:00: [place] VERIO FLEX 00 Medical METER) Misc Branch lancets 2021-0 Yes [id number] Use as [facility] ers (ONETOUCH 6-08 directed ity of DEL[place] PLUS 00:00: [place] LANCET) 33 00 Medical gauge Misc Branch Blood-Gluco 2021-0 Yes [id number] Use as [facility] 6-08 directed ity of (ONETOUCH 00:00: [place] VERIO FLEX 00 Medical METER) Misc Branch lancets 1-0 Yes [id number] Use as [facility] ers (ONETOUCH 6-08 directed ity of DEL[place] PLUS 00:00: [place] LANCET) 33 00 Medical gauge Misc Branch Blood-Gluco 2021-0 Yes [id number] Use as [facility] se Meter 6-08 directed ity of (ONETOUCH 00:00: [place] VERIO FLEX 00 Medical METER) Misc Branch lancets 2021-0 Yes [id number] Use as [facility] ers (ONETOUCH 6-08 directed ity of DEL[place] PLUS 00:00: [place] LANCET) 33 00 Medical gauge Misc Branch Blood-Gluco 2021-0 Yes [id number] Use as [facility] 6-08 directed ity of (ONETOUCH 00:00: [place] VERIO FLEX 00 Medical METER) Misc Branch lancets 2021-0 Yes [id number] Use as [facility] (ONETOUCH 6-08 directed ity of DEL[place] PLUS 00:00: [place] LANCET) 33 00 Medical gauge Misc Branch Blood-Gluco 2021-0 Yes [id number] Use as [facility] 6-08 directed ity of (ONETOUCH 00:00: [place] VERIO FLEX 00 Medical METER) Misc Branch lancets 2021-0 Yes [id number] Use as [facility] (ONETOUCH 6-08 directed ity of DEL[place] PLUS 00:00: [place] LANCET) 33 00 Medical gauge Misc Branch Blood-Gluco 2021-0 Yes [id number] Use as [facility] M[facility] 6-08 directed ity of (ONETOUCH 00:00: [place] VERIO FLEX 00 Medical METER) Misc Branch lancets 2021-0 Yes [id number] Use as [facility] (ONETOUCH 6-08 directed ity of DEL[place] PLUS 00:00: [place] LANCET) 33 00 Medical gauge Misc Branch Blood-Gluco 2021-0 Yes [id number] Use as [facility] 6-08 directed ity of (ONETOUCH 00:00: [place] VERIO FLEX 00 Medical METER) Misc Branch lancets 2021-0 Yes [id number] Use as [facility] (ONETOUCH 6-08 directed ity of DEL[place] PLUS 00:00: [place] LANCET) 33 00 Medical gauge Misc Branch Blood-Gluco 2021-0 Yes [id number] Use as [facility] 6-08 directed ity of (ONETOUCH 00:00: [place] VERIO FLEX 00 Medical METER) Misc Branch lancets 2020-0 Yes [id number] Use as [facility] (ONETOUCH 6-08 directed ity of DEL[place] PLUS 00:00: [place] LANCET) 33 00 Medical gauge Misc Branch Blood-Gluco 1-0 Yes [id number] Use as [facility] 6-08 directed ity of (ONETOUCH 00:00: [place] VERIO FLEX 00 Medical METER) Misc Branch lancets 2020-0 Yes [id number] Use as [facility] (ONETOUCH 6-08 directed ity of DEL[place] PLUS 00:00: [place] LANCET) 33 00 Medical gauge Misc Branch Blood-Gluco 1-0 Yes [id number] Use as [facility] M[facility] 6-08 directed ity of (ONETOUCH 00:00: [place] VERIO FLEX 00 Medical METER) Misc Branch lancets 1-0 Yes [id number] Use as [facility] ers (ONETOUCH 6-08 directed ity of DEL[place] PLUS 00:00: [place] LANCET) 33 00 Medical gauge Misc Branch Blood-Gluco 2021-0 Yes [id number] Use as [facility] M[facility] 6-08 directed ity of (ONETOUCH 00:00: [place] VERIO FLEX 00 Medical METER) Misc Branch lancets 2021-0 Yes [id number] Use as [facility] ers (ONETOUCH 6-08 directed ity of DEL[place] PLUS 00:00: [place] LANCET) 33 00 Medical gauge Misc Branch Blood-Gluco 2021-0 Yes [id number] Use as [facility] se Meter 6-08 directed ity of (ONETOUCH 00:00: [place] VERIO FLEX 00 Medical METER) Misc Branch lancets 2021-0 Yes [id number] Use as [facility] ers (ONETOUCH 6-08 directed ity of DEL[place] PLUS 00:00: [place] LANCET) 33 00 Medical gauge Misc Branch Blood-Gluco 2021-0 Yes [id number] Use as [facility] se Meter 6-08 directed ity of (ONETOUCH 00:00: [place] VERIO FLEX 00 Medical METER) Misc Branch lancets 2021-0 Yes [id number] Use as [facility] ers (ONETOUCH 6-08 directed ity of DEL[place] PLUS 00:00: [place] LANCET) 33 00 Medical gauge Misc Branch Blood-Gluco 2021-0 Yes [id number] Use as [facility] se Meter 6-08 directed ity of (ONETOUCH 00:00: [place] VERIO FLEX 00 Medical METER) Misc Branch lancets 1-0 Yes [id number] Use as [facility] ers (ONETOUCH 6-08 directed ity of DEL[place] PLUS 00:00: [place] LANCET) 33 00 Medical gauge Misc Branch Blood-Gluco 2021-0 Yes [id number] Use as [facility] se Meter 6-08 directed ity of (ONETOUCH 00:00: [place] VERIO FLEX 00 Medical METER) Misc Branch lancets 1-0 Yes [id number] Use as [facility] ers (ONETOUCH 6-08 directed ity of DEL[place] PLUS 00:00: [place] LANCET) 33 00 Medical gauge Misc Branch Blood-Gluco 2021-0 Yes [id number] Use as [facility] se Meter 6-08 directed ity of (ONETOUCH 00:00: [place] VERIO FLEX 00 Medical METER) Misc Branch lancets 2021-0 Yes [id number] Use as [facility] (ONETOUCH 6-08 directed ity of DEL[place] PLUS 00:00: [place] LANCET) 33 00 Medical gauge Misc Branch Blood-Gluco 2021-0 Yes [id number] Use as [facility] 6-08 directed ity of (ONETOUCH 00:00: [place] VERIO FLEX 00 Medical METER) Misc Branch lancets 2021-0 Yes [id number] Use as [facility] ers (ONETOUCH 6-08 directed ity of DEL[place] PLUS 00:00: [place] LANCET) 33 00 Medical gauge Misc Branch Blood-Gluco 2021-0 Yes [id number] Use as [facility] se Meter 6-08 directed ity of (ONETOUCH 00:00: [place] VERIO FLEX 00 Medical METER) Misc Branch lancets 2021-0 Yes [id number] Use as [facility] ers (ONETOUCH 6-08 directed ity of DEL[place] PLUS 00:00: [place] LANCET) 33 00 Medical gauge Misc Branch Blood-Gluco 2021-0 Yes [id number] Use as [facility] M[facility] 6-08 directed ity of (ONETOUCH 00:00: [place] VERIO FLEX 00 Medical METER) Misc Branch lancets 2021-0 Yes [id number] Use as [facility] ers (ONETOUCH 6-08 directed ity of DEL[place] PLUS 00:00: [place] LANCET) 33 00 Medical gauge Misc Branch Blood-Gluco 2021-0 Yes [id number] Use as [facility] se M[facility] 6-08 directed ity of (ONETOUCH 00:00: [place] VERIO FLEX 00 Medical METER) Misc Branch lancets 2021-0 Yes [id number] Use as [facility] ers (ONETOUCH 6-08 directed ity of DEL[place] PLUS 00:00: [place] LANCET) 33 00 Medical gauge Misc Branch Blood-Gluco 2021-0 Yes [id number] Use as [facility] se Meter 6-08 directed ity of (ONETOUCH 00:00: [place] VERIO FLEX 00 Medical METER) Misc Branch lancets 2021-0 Yes [id number] Use as [facility] ers (ONETOUCH 6-08 directed ity of DEL[place] PLUS 00:00: [place] LANCET) 33 00 Medical gauge Misc Branch Blood-Gluco 2021-0 Yes [id number] Use as [facility] se Meter 6-08 directed ity of (ONETOUCH 00:00: [place] VERIO FLEX 00 Medical METER) Misc Branch lancets 2021-0 Yes [id number] Use as [facility] ers (ONETOUCH 6-08 directed ity of DEL[place] PLUS 00:00: [place] LANCET) 33 00 Medical gauge Misc Branch Blood-Gluco 2021-0 Yes [id number] Use as [facility] se Meter 6-08 directed ity of (ONETOUCH 00:00: [place] VERIO FLEX 00 Medical METER) Misc Branch lancets 2021-0 Yes [id number] Use as [facility] ers (ONETOUCH 6-08 directed ity of DEL[place] PLUS 00:00: [place] LANCET) 33 00 Medical gauge Misc Branch Blood-Gluco 2021-0 Yes [id number] Use as [facility] se Meter 6-08 directed ity of (ONETOUCH 00:00: [place] VERIO FLEX 00 Medical METER) Misc Branch lancets 2021-0 Yes [id number] Use as [facility] ers (ONETOUCH 6-08 directed ity of DEL[place] PLUS 00:00: [place] LANCET) 33 00 Medical gauge Misc Branch Blood-Gluco 2021-0 Yes [id number] Use as [facility] se Meter 6-08 directed ity of (ONETOUCH 00:00: [place] VERIO FLEX 00 Medical METER) Misc Branch lancets 2021-0 Yes [id number] Use as [facility] ers (ONETOUCH 6-08 directed ity of DEL[place] PLUS 00:00: [place] LANCET) 33 00 Medical gauge Misc Branch Blood-Gluco 1-0 Yes [id number] Use as [facility] se Meter 6-08 directed ity of (ONETOUCH 00:00: [place] VERIO FLEX 00 Medical METER) Misc Branch lancets 2021-0 Yes [id number] Use as [facility] ers (ONETOUCH 6-08 directed ity of DEL[place] PLUS 00:00: [place] LANCET) 33 00 Medical gauge Misc Branch Blood-Gluco 2021-0 Yes [id number] Use as [facility] se Meter 6-08 directed ity of (ONETOUCH 00:00: [place] VERIO FLEX 00 Medical METER) Misc Branch lancets 2021-0 Yes [id number] Use as [facility] ers (ONETOUCH 6-08 directed ity of DEL[place] PLUS 00:00: [place] LANCET) 33 00 Medical gauge Misc Branch Blood-Gluco 2021-0 Yes [id number] Use as [facility] se Meter 6-08 directed ity of (ONETOUCH 00:00: [place] VERIO FLEX 00 Medical METER) Misc Branch lancets 2021-0 Yes [id number] Use as [facility] ers (ONETOUCH 6-08 directed ity of DEL[place] PLUS 00:00: [place] LANCET) 33 00 Medical gauge Misc Branch Blood-Gluco 2021-0 Yes [id number] Use as [facility] se Meter 6-08 directed ity of (ONETOUCH 00:00: [place] VERIO FLEX 00 Medical METER) Misc Branch lancets 2021-0 Yes [id number] Use as [facility] ers (ONETOUCH 6-08 directed ity of DEL[place] PLUS 00:00: [place] LANCET) 33 00 Medical gauge Misc Branch Blood-Gluco 2021-0 Yes [id number] Use as [facility] se Meter 6-08 directed ity of (ONETOUCH 00:00: [place] VERIO FLEX 00 Medical METER) Misc Branch lancets 2021-0 Yes [id number] Use as [facility] ers (ONETOUCH 6-08 directed ity of DEL[place] PLUS 00:00: [place] LANCET) 33 00 Medical gauge Misc Branch Blood-Gluco 2021-0 Yes [id number] Use as [facility] se Meter 6-08 directed ity of (ONETOUCH 00:00: [place] VERIO FLEX 00 Medical METER) Misc Branch lancets 1-0 Yes [id number] Use as [facility] ers (ONETOUCH 6-08 directed ity of DEL[place] PLUS 00:00: [place] LANCET) 33 00 Medical gauge Misc Branch Blood-Gluco 1-0 Yes [id number] Use as [facility] se Meter 6-08 directed ity of (ONETOUCH 00:00: [place] VERIO FLEX 00 Medical METER) Misc Branch lancets 1-0 Yes [id number] Use as [facility] ers (ONETOUCH 6-08 directed ity of DEL[place] PLUS 00:00: [place] LANCET) 33 00 Medical gauge Misc Branch Blood-Gluco 1-0 Yes [id number] Use as [facility] se Meter 6-08 directed ity of (ONETOUCH 00:00: [place] VERIO FLEX 00 Medical METER) Misc Branch lancets 2021-0 Yes [id number] Use as [facility] ers (ONETOUCH 6-08 directed ity of DEL[place] PLUS 00:00: [place] LANCET) 33 00 Medical gauge Misc Branch Blood-Gluco 2021-0 Yes [id number] Use as [facility] se Meter 6-08 directed ity of (ONETOUCH 00:00: [place] VERIO FLEX 00 Medical METER) Misc Branch lancets 2021-0 Yes [id number] Use as [facility] ers (ONETOUCH 6-08 directed ity of DEL[place] PLUS 00:00: [place] LANCET) 33 00 Medical gauge Misc Branch Blood-Gluco 2021-0 Yes [id number] Use as [facility] se Meter 6-08 directed ity of (ONETOUCH 00:00: [place] VERIO FLEX 00 Medical METER) Misc Branch lancets 2021-0 Yes [id number] Use as [facility] ers (ONETOUCH 6-08 directed ity of DEL[place] PLUS 00:00: [place] LANCET) 33 00 Medical gauge Misc Branch Blood-Gluco 2021-0 Yes [id number] Use as [facility] se Meter 6-08 directed ity of (ONETOUCH 00:00: [place] VERIO FLEX 00 Medical METER) Misc Branch lancets 2021-0 Yes [id number] Use as [facility] ers (ONETOUCH 6-08 directed ity of DEL[place] PLUS 00:00: [place] LANCET) 33 00 Medical gauge Misc Branch Blood-Gluco 2021-0 Yes [id number] Use as [facility] se Meter 6-08 directed ity of (ONETOUCH 00:00: [place] VERIO FLEX 00 Medical METER) Misc Branch lancets 2021-0 Yes [id number] Use as [facility] ers (ONETOUCH 6-08 directed ity of DEL[place] PLUS 00:00: [place] LANCET) 33 00 Medical gauge Misc Branch Blood-Gluco 2021-0 Yes [id number] Use as [facility] se Meter 6-08 directed ity of (ONETOUCH 00:00: [place] VERIO FLEX 00 Medical METER) Misc Branch lancets 2021-0 Yes [id number] Use as [facility] ers (ONETOUCH 6-08 directed ity of DEL[place] PLUS 00:00: [place] LANCET) 33 00 Medical gauge Misc Branch Blood-Gluco 2021-0 Yes [id number] Use as [facility] se Meter 6-08 directed ity of (ONETOUCH 00:00: [place] VERIO FLEX 00 Medical METER) Misc Branch lancets 2021-0 Yes [id number] Use as [facility] ers (ONETOUCH 6-08 directed ity of DEL[place] PLUS 00:00: [place] LANCET) 33 00 Medical gauge Misc Branch Blood-Gluco 2021-0 Yes [id number] Use as [facility] se Meter 6-08 directed ity of (ONETOUCH 00:00: [place] VERIO FLEX 00 Medical METER) Misc Branch lancets 2021-0 Yes [id number] Use as [facility] ers (ONETOUCH 6-08 directed ity of DEL[place] PLUS 00:00: [place] LANCET) 33 00 Medical gauge Misc Branch Blood-Gluco 2021-0 Yes [id number] Use as [facility] se Meter 6-08 directed ity of (ONETOUCH 00:00: [place] VERIO FLEX 00 Medical METER) Misc Branch lancets 2021-0 Yes [id number] Use as [facility] ers (ONETOUCH 6-08 directed ity of [place] PLUS 00:00: [place] LANCET) 33 00 Medical gauge Misc Branch Blood-Gluco 0 Yes [id number] Use as [facility] se Meter 6-08 directed ity of (ONETOUCH 00:00: [place] VERIO FLEX 00 Medical METER) Misc Branch lancets 0 Yes [id number] Use as [facility] ers (ONETOUCH 6-08 directed ity of DEL[place] PLUS 00:00: [place] LANCET) 33 00 Medical gauge Misc Branch blood sugar 0 2020- No [id number] Use as [facility] diagnostic 6-08 10-07 directed ity of (ONETOUCH 00:00: 00:00 [place] VERIO TEST 00 :00 Medical STRIPS) Branch strip HYDROcodone 0 Yes Univer s -acetaminop 6-01 ity of hen 7.5-325 00:00: [place] mg per 00 Medical tablet Branch HYDROcodone 2020-0 Yes Univer s -acetaminop 6-01 ity of hen 7.5-325 00:00: [place] mg per 00 Medical tablet Branch HYDROcodone 2020-0 Yes Univer s -acetaminop 6-01 ity of hen 7.5-325 00:00: [place] mg per 00 Medical tablet Branch HYDROcodone 2020-0 Yes Univer s -acetaminop 6-01 ity of hen 7.5-325 00:00: [place] mg per 00 Medical tablet Branch HYDROcodone 2020-0 Yes Univer s -acetaminop 6-01 ity of hen 7.5-325 00:00: [place] mg per 00 Medical tablet Branch HYDROcodone 2020-0 Yes Univer s -acetaminop 6-01 ity of hen 7.5-325 00:00: [place] mg per 00 Medical tablet Branch HYDROcodone 2020-0 Yes Univer s -acetaminop 6-01 ity of hen 7.5-325 00:00: [place] mg per 00 Medical tablet Branch HYDROcodone 2020-0 Yes Univer s -acetaminop 6-01 ity of hen 7.5-325 00:00: [place] mg per 00 Medical tablet Branch HYDROcodone 2020-0 Yes Univer s -acetaminop 6-01 ity of hen 7.5-325 00:00: [place] mg per 00 Medical tablet Branch HYDROcodone 2021-0 Yes Univer s -acetaminop 6- ity of hen 7.5-325 00:00: [place] mg per 00 Medical tablet Branch HYDROcodone 2021-0 Yes Univer s -acetaminop 6- ity of hen 7.5-325 00:00: [place] mg per 00 Medical tablet Branch HYDROcodone 2021-0 Yes Univer s -acetaminop 6- ity of hen 7.5-325 00:00: [place] mg per 00 Medical tablet Branch HYDROcodone 2021-0 Yes Univer s -acetaminop 6- ity of hen 7.5-325 00:00: [place] mg per 00 Medical tablet Branch HYDROcodone 1-0 Yes Univer s -acetaminop 6- ity of hen 7.5-325 00:00: [place] mg per 00 Medical tablet Branch HYDROcodone 1-0 Yes Univer s -acetaminop 6- ity of hen 7.5-325 00:00: [place] mg per 00 Medical tablet Branch HYDROcodone 2021-0 Yes Univer s -acetaminop 6- ity of hen 7.5-325 00:00: [place] mg per 00 Medical tablet Branch HYDROcodone 2021-0 Yes Univer s -acetaminop 6- ity of hen 7.5-325 00:00: [place] mg per 00 Medical tablet Branch HYDROcodone 2021-0 Yes Univer s -acetaminop 6- ity of hen 7.5-325 00:00: [place] mg per 00 Medical tablet Branch HYDROcodone 2021-0 Yes Univer s -acetaminop 6- ity of hen 7.5-325 00:00: [place] mg per 00 Medical tablet Branch HYDROcodone 2021-0 Yes Univer s -acetaminop 6- ity of hen 7.5-325 00:00: [place] mg per 00 Medical tablet Branch HYDROcodone 2021-0 Yes Univer s -acetaminop 6- ity of hen 7.5-325 00:00: [place] mg per 00 Medical tablet Branch HYDROcodone 2021-0 Yes Univer s -acetaminop 6- ity of hen 7.5-325 00:00: [place] mg per 00 Medical tablet Branch HYDROcodone 2021-0 Yes Univer s -acetaminop 6-01 ity of hen 7.5-325 00:00: [place] mg per 00 Medical tablet Branch HYDROcodone 2021-0 Yes Univer s -acetaminop 6-01 ity of hen 7.5-325 00:00: [place] mg per 00 Medical tablet Branch HYDROcodone 2021-0 Yes Univer s -acetaminop 6-01 ity of hen 7.5-325 00:00: [place] mg per 00 Medical tablet Branch HYDROcodone 1-0 Yes Univer s -acetaminop 6- ity of hen 7.5-325 00:00: [place] mg per 00 Medical tablet Branch HYDROcodone 2020-0 Yes Univer s -acetaminop 6-01 ity of hen 7.5-325 00:00: [place] mg per 00 Medical tablet Branch HYDROcodone 2020-0 Yes Univer s -acetaminop 6- ity of hen 7.5-325 00:00: [place] mg per 00 Medical tablet Branch HYDROcodone 1-0 Yes Univer s -acetaminop 6- ity of hen 7.5-325 00:00: [place] mg per 00 Medical tablet Branch HYDROcodone 2021-0 Yes Univer s -acetaminop 6-01 ity of hen 7.5-325 00:00: [place] mg per 00 Medical tablet Branch HYDROcodone 2021-0 Yes Univer s -acetaminop 6- ity of hen 7.5-325 00:00: [place] mg per 00 Medical tablet Branch HYDROcodone 2021-0 Yes Univer s -acetaminop 6-01 ity of hen 7.5-325 00:00: [place] mg per 00 Medical tablet Branch HYDROcodone 2021-0 Yes Univer s -acetaminop 6-01 ity of hen 7.5-325 00:00: [place] mg per 00 Medical tablet Branch HYDROcodone 2021-0 Yes Univer s -acetaminop 6-01 ity of hen 7.5-325 00:00: [place] mg per 00 Medical tablet Branch HYDROcodone 2021-0 Yes Univer s -acetaminop 6-01 ity of hen 7.5-325 00:00: [place] mg per 00 Medical tablet Branch HYDROcodone 2021-0 Yes Univer s -acetaminop 6- ity of hen 7.5-325 00:00: [place] mg per 00 Medical tablet Branch HYDROcodone 2021-0 Yes Univer s -acetaminop 6- ity of hen 7.5-325 00:00: [place] mg per 00 Medical tablet Branch HYDROcodone 2021-0 Yes Univer s -acetaminop 6- ity of hen 7.5-325 00:00: [place] mg per 00 Medical tablet Branch HYDROcodone 2021-0 Yes Univer s -acetaminop 6- ity of hen 7.5-325 00:00: [place] mg per 00 Medical tablet Branch HYDROcodone 2021-0 Yes Univer s -acetaminop 6- ity of hen 7.5-325 00:00: [place] mg per 00 Medical tablet Branch HYDROcodone 2021-0 Yes Univer s -acetaminop 6- ity of hen 7.5-325 00:00: [place] mg per 00 Medical tablet Branch HYDROcodone 2021-0 Yes Univer s -acetaminop 6- ity of hen 7.5-325 00:00: [place] mg per 00 Medical tablet Branch HYDROcodone 2021-0 Yes Univer s -acetaminop 6- ity of hen 7.5-325 00:00: [place] mg per 00 Medical tablet Branch HYDROcodone 2021-0 Yes Univer s -acetaminop 6- ity of hen 7.5-325 00:00: [place] mg per 00 Medical tablet Branch HYDROcodone 2021-0 Yes Univer s -acetaminop 6- ity of hen 7.5-325 00:00: [place] mg per 00 Medical tablet Branch HYDROcodone 2021-0 Yes Univer s -acetaminop 6- ity of hen 7.5-325 00:00: [place] mg per 00 Medical tablet Branch HYDROcodone 2021-0 Yes Univer s -acetaminop 6-01 ity of hen 7.5-325 00:00: [place] mg per 00 Medical tablet Branch HYDROcodone 2021-0 Yes Univer s -acetaminop 6- ity of hen 7.5-325 00:00: [place] mg per 00 Medical tablet Branch HYDROcodone 2021-0 Yes Univer s -acetaminop 6- ity of hen 7.5-325 00:00: [place] mg per 00 Medical tablet Branch HYDROcodone 2021-0 Yes Univer s -acetaminop 6- ity of hen 7.5-325 00:00: [place] mg per 00 Medical tablet Branch HYDROcodone 2021-0 Yes Univer s -acetaminop 6-01 ity of hen 7.5-325 00:00: [place] mg per 00 Medical tablet Branch HYDROcodone 2021-0 Yes Univer s -acetaminop 6-01 ity of hen 7.5-325 00:00: [place] mg per 00 Medical tablet Branch HYDROcodone 1-0 Yes Univer s -acetaminop 6-01 ity of hen 7.5-325 00:00: [place] mg per 00 Medical tablet Branch HYDROcodone 1-0 Yes Univer s -acetaminop 6-01 ity of hen 7.5-325 00:00: [place] mg per 00 Medical tablet Branch HYDROcodone 1-0 Yes Univer s -acetaminop 6- ity of hen 7.5-325 00:00: [place] mg per 00 Medical tablet Branch HYDROcodone 1-0 Yes Univer s -acetaminop 6- ity of hen 7.5-325 00:00: [place] mg per 00 Medical tablet Branch HYDROcodone 2021-0 Yes [facility] -acetaminop 6-01 ity of hen 7.5-325 00:00: [place] mg per 00 Medical tablet Branch HYDROcodone 2021-0 Yes [facility] -acetaminop 6-01 ity of hen 7.5-325 00:00: [place] mg per 00 Medical tablet Branch HYDROcodone 2021-0 Yes [facility] -acetaminop 6-01 ity of hen 7.5-325 00:00: [place] mg per 00 Medical tablet Branch HYDROcodone 2021-0 Yes [facility] -acetaminop 6-01 ity of hen 7.5-325 00:00: [place] mg per 00 Medical tablet Branch HYDROcodone 2021-0 Yes [facility] -acetaminop 6-01 ity of hen 7.5-325 00:00: [place] mg per 00 Medical tablet Branch HYDROcodone 2021-0 Yes [facility] -acetaminop 6-01 ity of hen 7.5-325 00:00: [place] mg per 00 Medical tablet Branch HYDROcodone 2021-0 Yes [facility] -acetaminop 6-01 ity of hen 7.5-325 00:00: [place] mg per 00 Medical tablet Branch HYDROcodone 2021-0 Yes [facility] -acetaminop 6- ity of hen 7.5-325 00:00: [place] mg per 00 Medical tablet Branch HYDROcodone 2021-0 Yes [facility] -acetaminop 6- ity of hen 7.5-325 00:00: [place] mg per 00 Medical tablet Branch HYDROcodone 2021-0 Yes [facility] -acetaminop 6- ity of hen 7.5-325 00:00: [place] mg per 00 Medical tablet Branch HYDROcodone 2021-0 Yes [facility] -acetaminop 6- ity of hen 7.5-325 00:00: [place] mg per 00 Medical tablet Branch HYDROcodone 2021-0 Yes [facility] -acetaminop 6- ity of hen 7.5-325 00:00: [place] mg per 00 Medical tablet Branch HYDROcodone 2021-0 Yes [facility] -acetaminop 6- ity of hen 7.5-325 00:00: [place] mg per 00 Medical tablet Branch HYDROcodone 2021-0 Yes [facility] -acetaminop 6- ity of hen 7.5-325 00:00: [place] mg per 00 Medical tablet Branch HYDROcodone 2021-0 Yes [facility] -acetaminop 6- ity of hen 7.5-325 00:00: [place] mg per 00 Medical tablet Branch HYDROcodone 2021-0 Yes [facility] -acetaminop 6- ity of hen 7.5-325 00:00: [place] mg per 00 Medical tablet Branch HYDROcodone 2021-0 Yes [facility] -acetaminop 6- ity of hen 7.5-325 00:00: [place] mg per 00 Medical tablet Branch HYDROcodone 2021-0 Yes [facility] -acetaminop 6-01 ity of hen 7.5-325 00:00: [place] mg per 00 Medical tablet Branch HYDROcodone 2021-0 Yes [facility] -acetaminop 6- ity of hen 7.5-325 00:00: [place] mg per 00 Medical tablet Branch HYDROcodone 2021-0 Yes [facility] -acetaminop 6- ity of hen 7.5-325 00:00: [place] mg per 00 Medical tablet Branch HYDROcodone 2021-0 Yes [facility] -acetaminop 6- ity of hen 7.5-325 00:00: [place] mg per 00 Medical tablet Branch HYDROcodone 2021-0 Yes [facility] -acetaminop 6-01 ity of hen 7.5-325 00:00: [place] mg per 00 Medical tablet Branch HYDROcodone 2021-0 Yes [facility] -acetaminop 6-01 ity of hen 7.5-325 00:00: [place] mg per 00 Medical tablet Branch HYDROcodone 2021-0 Yes [facility] -acetaminop 6- ity of hen 7.5-325 00:00: [place] mg per 00 Medical tablet Branch HYDROcodone 2021-0 Yes [facility] -acetaminop 6-01 ity of hen 7.5-325 00:00: [place] mg per 00 Medical tablet Branch HYDROcodone 1-0 Yes [facility] -acetaminop 6- ity of hen 7.5-325 00:00: [place] mg per 00 Medical tablet Branch HYDROcodone 2021-0 Yes [facility] -acetaminop 6- ity of hen 7.5-325 00:00: [place] mg per 00 Medical tablet Branch HYDROcodone 2021-0 Yes [facility] -acetaminop 6-01 ity of hen 7.5-325 00:00: [place] mg per 00 Medical tablet Branch HYDROcodone 2021-0 Yes [facility] -acetaminop 6-01 ity of hen 7.5-325 00:00: [place] mg per 00 Medical tablet Branch HYDROcodone 2021-0 Yes [facility] -acetaminop 6-01 ity of hen 7.5-325 00:00: [place] mg per 00 Medical tablet Branch HYDROcodone 2021-0 Yes [facility] -acetaminop 6-01 ity of hen 7.5-325 00:00: [place] mg per 00 Medical tablet Branch HYDROcodone 2021-0 Yes [facility] -acetaminop 6-01 ity of hen 7.5-325 00:00: [place] mg per 00 Medical tablet Branch HYDROcodone 2021-0 Yes [facility] -acetaminop 6-01 ity of hen 7.5-325 00:00: [place] mg per 00 Medical tablet Branch HYDROcodone 2021-0 Yes [facility] -acetaminop 6-01 ity of hen 7.5-325 00:00: [place] mg per 00 Medical tablet Branch HYDROcodone 2020-0 Yes [facility] -acetaminop 6-01 ity of hen 7.5-325 00:00: [place] mg per 00 Medical tablet Branch HYDROcodone 2020-0 Yes [facility] -acetaminop 6- ity of hen 7.5-325 00:00: [place] mg per 00 Medical tablet Branch HYDROcodone 2020-0 Yes [facility] -acetaminop 6- ity of hen 7.5-325 00:00: [place] mg per 00 Medical tablet Branch HYDROcodone 2020-0 Yes [facility] -acetaminop 6-01 ity of hen 7.5-325 00:00: [place] mg per 00 Medical tablet Branch HYDROcodone 2020-0 Yes [facility] -acetaminop 6- ity of hen 7.5-325 00:00: [place] mg per 00 Medical tablet Branch HYDROcodone 2020-0 Yes [facility] -acetaminop 6- ity of hen 7.5-325 00:00: [place] mg per 00 Medical tablet Branch HYDROcodone 2020-0 Yes [facility] -acetaminop 6- ity of hen 7.5-325 00:00: [place] mg per 00 Medical tablet Branch HYDROcodone 2020-0 Yes [facility] -acetaminop 6-01 ity of hen 7.5-325 00:00: [place] mg per 00 Medical tablet Branch HYDROcodone 2020-0 Yes [facility] -acetaminop 6-01 ity of hen 7.5-325 00:00: [place] mg per 00 Medical tablet Branch HYDROcodone 2020-0 Yes [facility] -acetaminop 6- ity of hen 7.5-325 00:00: [place] mg per 00 Medical tablet Branch methotrexat 2020-0 1- No [id number] 12.5mg Take 5 [facility] e 2.5 mg 5-17 10-04 tablets by ity of tablet 00:00: 00:00 mouth [place] 00 :00 weekly Medical Branch gabapentin 2020-0 Yes [id number] 800mg Take 1 [facility] 800 mg 5-10 tablet by ity of tablet 00:00: mouth 3 (three) Medical times Branch daily. gabapentin 2020-0 Yes [id number] 800mg Take 1 [facility] 800 mg 5-10 tablet by ity of tablet 00:00: mouth 3 (three) Medical times Branch daily. gabapentin 2021-0 Yes [id number] 800mg Take 1 [facility] 800 mg 5-10 tablet by ity of tablet 00:00: mouth (three) Medical times Branch daily. gabapentin 2021-0 Yes [id number] 800mg Take 1 [facility] 800 mg 5-10 tablet by ity of tablet 00:00: mouth (three) Medical times Branch daily. gabapentin 2021-0 Yes [id number] 800mg Take 1 [facility] 800 mg 5-10 tablet by ity of tablet 00:00: mouth (three) Medical times Branch daily. gabapentin 2021-0 Yes [id number] 800mg Take 1 [facility] 800 mg 5-10 tablet by ity of tablet 00:00: mouth (three) Medical times Branch daily. gabapentin 2021-0 Yes [id number] 800mg Take 1 [facility] 800 mg 5-10 tablet by ity of tablet 00:00: mouth (three) Medical times Branch daily. gabapentin 2021-0 Yes [id number] 800mg Take 1 [facility] 800 mg 5-10 tablet by ity of tablet 00:00: mouth (three) Medical times Branch daily. gabapentin 2021-0 Yes [id number] 800mg Take 1 [facility] 800 mg 5-10 tablet by ity of tablet 00:00: mouth (three) Medical times Branch daily. gabapentin 2021-0 Yes [id number] 800mg Take 1 [facility] 800 mg 5-10 tablet by ity of tablet 00:00: mouth (three) Medical times Branch daily. gabapentin 2021-0 Yes [id number] 800mg Take 1 [facility] 800 mg 5-10 tablet by ity of tablet 00:00: mouth (three) Medical times Branch daily. gabapentin 2021-0 Yes [id number] 800mg Take 1 [facility] 800 mg 5-10 tablet by ity of tablet 00:00: mouth (three) Medical times Branch daily. gabapentin 2021-0 Yes [id number] 800mg Take 1 [facility] 800 mg 5-10 tablet by ity of tablet 00:00: mouth 3 (three) Medical times Branch daily. gabapentin 2021-0 Yes [id number] 800mg Take 1 [facility] 800 mg 5-10 tablet by ity of tablet 00:00: mouth 3 [place] 00 (three) Medical times Branch daily. gabapentin 2021-0 Yes [id number] 800mg Take 1 [facility] 800 mg 5-10 tablet by ity of tablet 00:00: mouth (three) Medical times Branch daily. gabapentin 2021-0 Yes [id number] 800mg Take 1 [facility] 800 mg 5-10 tablet by ity of tablet 00:00: mouth (three) Medical times Branch daily. gabapentin 2021-0 Yes [id number] 800mg Take 1 [facility] 800 mg 5-10 tablet by ity of tablet 00:00: mouth (three) Medical times Branch daily. gabapentin 2021-0 Yes [id number] 800mg Take 1 [facility] 800 mg 5-10 tablet by ity of tablet 00:00: mouth (three) Medical times Branch daily. gabapentin 2021-0 Yes [id number] 800mg Take 1 [facility] 800 mg 5-10 tablet by ity of tablet 00:00: mouth (three) Medical times Branch daily. gabapentin 2021-0 Yes [id number] 800mg Take 1 [facility] 800 mg 5-10 tablet by ity of tablet 00:00: mouth (three) Medical times Branch daily. gabapentin 2021-0 Yes [id number] 800mg Take 1 [facility] 800 mg 5-10 tablet by ity of tablet 00:00: mouth (three) Medical times Branch daily. gabapentin 2021-0 Yes [id number] 800mg Take 1 [facility] 800 mg 5-10 tablet by ity of tablet 00:00: mouth (three) Medical times Branch daily. gabapentin 2021-0 Yes [id number] 800mg Take 1 [facility] 800 mg 5-10 tablet by ity of tablet 00:00: mouth (three) Medical times Branch daily. gabapentin 2021-0 Yes [id number] 800mg Take 1 [facility] 800 mg 5-10 tablet by ity of tablet 00:00: mouth (three) Medical times Branch daily. gabapentin 2021-0 Yes [id number] 800mg Take 1 [facility] 800 mg 5-10 tablet by ity of tablet 00:00: mouth 3 (three) Medical times Branch daily. gabapentin 2021-0 Yes [id number] 800mg Take 1 [facility] 800 mg 5-10 tablet by ity of tablet 00:00: mouth (three) Medical times Branch daily. gabapentin 2021-0 Yes [id number] 800mg Take 1 [facility] 800 mg 5-10 tablet by ity of tablet 00:00: mouth () Medical times Branch daily. gabapentin 2021-0 Yes [id number] 800mg Take 1 [facility] 800 mg 5-10 tablet by ity of tablet 00:00: mouth (three) Medical times Branch daily. gabapentin 2021-0 Yes [id number] 800mg Take 1 [facility] 800 mg 5-10 tablet by ity of tablet 00:00: mouth () Medical times Branch daily. gabapentin 2021-0 Yes [id number] 800mg Take 1 [facility] 800 mg 5-10 tablet by ity of tablet 00:00: mouth () Medical times Branch daily. gabapentin 2021-0 Yes [id number] 800mg Take 1 [facility] 800 mg 5-10 tablet by ity of tablet 00:00: mouth () Medical times Branch daily. gabapentin 2021-0 Yes [id number] 800mg Take 1 [facility] 800 mg 5-10 tablet by ity of tablet 00:00: mouth () Medical times Branch daily. gabapentin 2021-0 Yes [id number] 800mg Take 1 [facility] 800 mg 5-10 tablet by ity of tablet 00:00: mouth () Medical times Branch daily. gabapentin 2021-0 Yes [id number] 800mg Take 1 [facility] 800 mg 5-10 tablet by ity of tablet 00:00: mouth () Medical times Branch daily. gabapentin 2021-0 Yes [id number] 800mg Take 1 [facility] 800 mg 5-10 tablet by ity of tablet 00:00: mouth (three) Medical times Branch daily. gabapentin 2021-0 Yes [id number] 800mg Take 1 [facility] 800 mg 5-10 tablet by ity of tablet 00:00: mouth () Medical times Branch daily. gabapentin 2021-0 Yes [id number] 800mg Take 1 [facility] 800 mg 5-10 tablet by ity of tablet 00:00: mouth (three) Medical times Branch daily. gabapentin 2021-0 Yes [id number] 800mg Take 1 [facility] 800 mg 5-10 tablet by ity of tablet 00:00: mouth (three) Medical times Branch daily. gabapentin 2021-0 Yes [id number] 800mg Take 1 [facility] 800 mg 5-10 tablet by ity of tablet 00:00: mouth (three) Medical times Branch daily. gabapentin 2021-0 Yes [id number] 800mg Take 1 [facility] 800 mg 5-10 tablet by ity of tablet 00:00: mouth (three) Medical times Branch daily. gabapentin 2021-0 Yes [id number] 800mg Take 1 [facility] 800 mg 5-10 tablet by ity of tablet 00:00: mouth (three) Medical times Branch daily. gabapentin 2021-0 Yes [id number] 800mg Take 1 [facility] 800 mg 5-10 tablet by ity of tablet 00:00: mouth (three) Medical times Branch daily. gabapentin 2021-0 Yes [id number] 800mg Take 1 [facility] 800 mg 5-10 tablet by ity of tablet 00:00: mouth () Medical times Branch daily. gabapentin 2021-0 Yes [id number] 800mg Take 1 [facility] 800 mg 5-10 tablet by ity of tablet 00:00: mouth () Medical times Branch daily. gabapentin 2021-0 Yes [id number] 800mg Take 1 [facility] 800 mg 5-10 tablet by ity of tablet 00:00: mouth () Medical times Branch daily. gabapentin 2021-0 Yes [id number] 800mg Take 1 [facility] 800 mg 5-10 tablet by ity of tablet 00:00: mouth (three) Medical times Branch daily. gabapentin 2021-0 Yes [id number] 800mg Take 1 [facility] 800 mg 5-10 tablet by ity of tablet 00:00: mouth (three) Medical times Branch daily. gabapentin 2021-0 Yes [id number] 800mg Take 1 [facility] 800 mg 5-10 tablet by ity of tablet 00:00: mouth (three) Medical times Branch daily. gabapentin 2021-0 Yes [id number] 800mg Take 1 [facility] 800 mg 5-10 tablet by ity of tablet 00:00: mouth (three) Medical times Branch daily. gabapentin 2021-0 Yes [id number] 800mg Take 1 [facility] 800 mg 5-10 tablet by ity of tablet 00:00: mouth (three) Medical times Branch daily. gabapentin 2021-0 Yes [id number] 800mg Take 1 [facility] 800 mg 5-10 tablet by ity of tablet 00:00: mouth (three) Medical times Branch daily. gabapentin 2021-0 Yes [id number] 800mg Take 1 [facility] 800 mg 5-10 tablet by ity of tablet 00:00: mouth (three) Medical times Branch daily. gabapentin 2021-0 Yes [id number] 800mg Take 1 [facility] 800 mg 5-10 tablet by ity of tablet 00:00: mouth (three) Medical times Branch daily. gabapentin 2021-0 Yes [id number] 800mg Take 1 [facility] 800 mg 5-10 tablet by ity of tablet 00:00: mouth (three) Medical times Branch daily. gabapentin 2021-0 Yes [id number] 800mg Take 1 [facility] 800 mg 5-10 tablet by ity of tablet 00:00: mouth (three) Medical times Branch daily. gabapentin 2021-0 Yes [id number] 800mg Take 1 [facility] 800 mg 5-10 tablet by ity of tablet 00:00: mouth (three) Medical times Branch daily. gabapentin 2021-0 Yes [id number] 800mg Take 1 [facility] 800 mg 5-10 tablet by ity of tablet 00:00: mouth (three) Medical times Branch daily. gabapentin 2021-0 Yes [id number] 800mg Take 1 [facility] 800 mg 5-10 tablet by ity of tablet 00:00: mouth (three) Medical times Branch daily. gabapentin 2021-0 Yes [id number] 800mg Take 1 [facility] 800 mg 5-10 tablet by ity of tablet 00:00: mouth (three) Medical times Branch daily. gabapentin 2021-0 Yes [id number] 800mg Take 1 [facility] 800 mg 5-10 tablet by ity of tablet 00:00: mouth (three) Medical times Branch daily. gabapentin 2021-0 Yes [id number] 800mg Take 1 [facility] 800 mg 5-10 tablet by ity of tablet 00:00: mouth (three) Medical times Branch daily. gabapentin 2021-0 Yes [id number] 800mg Take 1 [facility] 800 mg 5-10 tablet by ity of tablet 00:00: mouth (three) Medical times Branch daily. gabapentin 2021-0 Yes [id number] 800mg Take 1 [facility] 800 mg 5-10 tablet by ity of tablet 00:00: mouth (three) Medical times Branch daily. gabapentin 2021-0 Yes [id number] 800mg Take 1 [facility] 800 mg 5-10 tablet by ity of tablet 00:00: mouth (three) Medical times Branch daily. gabapentin 2021-0 Yes [id number] 800mg Take 1 [facility] 800 mg 5-10 tablet by ity of tablet 00:00: mouth (three) Medical times Branch daily. gabapentin 2021-0 Yes [id number] 800mg Take 1 [facility] 800 mg 5-10 tablet by ity of tablet 00:00: mouth (three) Medical times Branch daily. gabapentin 2021-0 Yes [id number] 800mg Take 1 [facility] 800 mg 5-10 tablet by ity of tablet 00:00: mouth (three) Medical times Branch daily. gabapentin 2021-0 Yes [id number] 800mg Take 1 [facility] 800 mg 5-10 tablet by ity of tablet 00:00: mouth (three) Medical times Branch daily. gabapentin 2021-0 Yes [id number] 800mg Take 1 [facility] 800 mg 5-10 tablet by ity of tablet 00:00: mouth (three) Medical times Branch daily. gabapentin 2021-0 Yes [id number] 800mg Take 1 [facility] 800 mg 5-10 tablet by ity of tablet 00:00: mouth (three) Medical times Branch daily. gabapentin 2021-0 Yes [id number] 800mg Take 1 [facility] 800 mg 5-10 tablet by ity of tablet 00:00: mouth (three) Medical times Branch daily. gabapentin 2021-0 Yes [id number] 800mg Take 1 [facility] 800 mg 5-10 tablet by ity of tablet 00:00: mouth (three) Medical times Branch daily. gabapentin 2021-0 Yes [id number] 800mg Take 1 [facility] 800 mg 5-10 tablet by ity of tablet 00:00: mouth (three) Medical times Branch daily. gabapentin 2021-0 Yes [id number] 800mg Take 1 [facility] 800 mg 5-10 tablet by ity of tablet 00:00: mouth (three) Medical times Branch daily. gabapentin 2021-0 Yes [id number] 800mg Take 1 [facility] 800 mg 5-10 tablet by ity of tablet 00:00: mouth (three) Medical times Branch daily. gabapentin 2021-0 Yes [id number] 800mg Take 1 [facility] 800 mg 5-10 tablet by ity of tablet 00:00: mouth (three) Medical times Branch daily. gabapentin 2021-0 Yes [id number] 800mg Take 1 [facility] 800 mg 5-10 tablet by ity of tablet 00:00: mouth (three) Medical times Branch daily. gabapentin 2021-0 Yes [id number] 800mg Take 1 [facility] 800 mg 5-10 tablet by ity of tablet 00:00: mouth (three) Medical times Branch daily. gabapentin 2021-0 Yes [id number] 800mg Take 1 [facility] 800 mg 5-10 tablet by ity of tablet 00:00: mouth (three) Medical times Branch daily. gabapentin 2021-0 Yes [id number] 800mg Take 1 [facility] 800 mg 5-10 tablet by ity of tablet 00:00: mouth (three) Medical times Branch daily. gabapentin 2021-0 Yes [id number] 800mg Take 1 [facility] 800 mg 5-10 tablet by ity of tablet 00:00: mouth (three) Medical times Branch daily. gabapentin 2021-0 Yes [id number] 800mg Take 1 [facility] 800 mg 5-10 tablet by ity of tablet 00:00: mouth (three) Medical times Branch daily. gabapentin 2021-0 Yes [id number] 800mg Take 1 [facility] 800 mg 5-10 tablet by ity of tablet 00:00: mouth (three) Medical times Branch daily. gabapentin 2021-0 Yes [id number] 800mg Take 1 [facility] 800 mg 5-10 tablet by ity of tablet 00:00: mouth (three) Medical times Branch daily. gabapentin 2021-0 Yes [id number] 800mg Take 1 [facility] 800 mg 5-10 tablet by ity of tablet 00:00: mouth (three) Medical times Branch daily. gabapentin 2021-0 Yes [id number] 800mg Take 1 [facility] 800 mg 5-10 tablet by ity of tablet 00:00: mouth (three) Medical times Branch daily. gabapentin 2021-0 Yes [id number] 800mg Take 1 [facility] 800 mg 5-10 tablet by ity of tablet 00:00: mouth (three) Medical times Branch daily. gabapentin 2021-0 Yes [id number] 800mg Take 1 [facility] 800 mg 5-10 tablet by ity of tablet 00:00: mouth (three) Medical times Branch daily. gabapentin 2021-0 Yes [id number] 800mg Take 1 [facility] 800 mg 5-10 tablet by ity of tablet 00:00: mouth (three) Medical times Branch daily. gabapentin 2021-0 Yes [id number] 800mg Take 1 [facility] 800 mg 5-10 tablet by ity of tablet 00:00: mouth (three) Medical times Branch daily. gabapentin 2021-0 Yes [id number] 800mg Take 1 [facility] 800 mg 5-10 tablet by ity of tablet 00:00: mouth (three) Medical times Branch daily. gabapentin 2021-0 Yes [id number] 800mg Take 1 [facility] 800 mg 5-10 tablet by ity of tablet 00:00: mouth (three) Medical times Branch daily. gabapentin 2021-0 Yes [id number] 800mg Take 1 [facility] 800 mg 5-10 tablet by ity of tablet 00:00: mouth (three) Medical times Branch daily. gabapentin 2021-0 Yes [id number] 800mg Take 1 [facility] 800 mg 5-10 tablet by ity of tablet 00:00: mouth (three) Medical times Branch daily. gabapentin 2021-0 Yes [id number] 800mg Take 1 [facility] 800 mg 5-10 tablet by ity of tablet 00:00: mouth (three) Medical times Branch daily. gabapentin 2021-0 Yes [id number] 800mg Take 1 [facility] 800 mg 5-10 tablet by ity of tablet 00:00: mouth (three) Medical times Branch daily. gabapentin 2021-0 Yes [id number] 800mg Take 1 [facility] 800 mg 5-10 tablet by ity of tablet 00:00: mouth (three) Medical times Branch daily. gabapentin 2021-0 Yes [id number] 800mg Take 1 [facility] 800 mg 5-10 tablet by ity of tablet 00:00: mouth 3 [place] 00 (three) Medical times Branch daily. gabapentin Yes [id number] 800mg Take 1 [facility] 800 mg 5-10 tablet by ity of tablet 00:00: mouth 3 00 (three) Medical times Branch daily. gabapentin Yes [id number] 800mg Take 1 [facility] 800 mg 5-10 tablet by ity of tablet 00:00: mouth 3 [place] 00 (three) Medical times Branch daily. allopurinoL 2020- No [id number] 100mg Take 1 [facility] 100 mg 5-10 10-07 tablet by ity of tablet 00:00: 00:00 mouth [place] 00 :00 daily. Medical Branch ferrous 2020- No [id number] 325mg Take 1 Un violeta sulfate 325 5-10 10-04 tablet by it y of mg (65 mg 00:00: 00:00 mouth [place] iron) 00 :00 every Medical tablet other day. Branch ergocalcife 2020- No [id number] 34541M Take 1 [facility] rol, 5-10 10-04 capsule by ity of vitamin d2, 00:00: 00:00 [place] 1,250 mcg 00 :00 weekly. Medical (50,000 Branch unit) capsule Fluocinolon Yes [id number] Apply to [facility] e-Hydroq.-T 506 area(s) at it y of retinoin 00:00: bedtime. [place] (TRI-JOHN) Medical 0.01-4-0.05 Branch % cream Fluocinolon Yes [id number] Apply to [facility] e-Hydroq.-T 5-06 area(s) at it y of retinoin 00:00: bedtime. [place] (TRI-JOHN) Medical 0.01-4-0.05 Branch % cream Fluocinolon Yes [id number] Apply to [facility] e-Hydroq.-T 5-06 area(s) at it y of retinoin 00:00: bedtime. [place] (TRI-JOHN) 00 Medical 0.01-4-0.05 Branch % cream Fluocinolon Yes [id number] Apply to [facility] e-Hydroq.-T 5- area(s) at it y of retinoin 00:00: bedtime. [place] (TRI-JOHN) 00 Medical 0.01-4-0.05 Branch % cream Fluocinolon 2021-0 Yes [id number] Apply to [facility] e-Hydroq.-T 5-06 area(s) at it y of retinoin 00:00: bedtime. [place] (TRI-JOHN) 00 Medical 0.01-4-0.05 Branch % cream Fluocinolon 2021-0 Yes [id number] Apply to [facility] e-Hydroq.-T 506 area(s) at it y of retinoin 00:00: bedtime. [place] (TRI-JOHN) 00 Medical 0.01-4-0.05 Branch % cream Fluocinolon 1-0 Yes [id number] Apply to [facility] e-Hydroq.-T 5 area(s) at it y of retinoin 00:00: bedtime. [place] (TRI-JOHN) 00 Medical 0.01-4-0.05 Branch % cream Fluocinolon 1-0 Yes [id number] Apply to [facility] e-Hydroq.-T 5 area(s) at it y of retinoin 00:00: bedtime. [place] (TRI-JOHN) 00 Medical 0.01-4-0.05 Branch % cream Fluocinolon 1-0 Yes [id number] Apply to [facility] e-Hydroq.-T 5 area(s) at it y of retinoin 00:00: bedtime. [place] (TRI-JOHN) 00 Medical 0.01-4-0.05 Branch % cream Fluocinolon 1-0 Yes [id number] Apply to [facility] e-Hydroq.-T 506 area(s) at it y of retinoin 00:00: bedtime. [place] (TRI-JOHN) 00 Medical 0.01-4-0.05 Branch % cream Fluocinolon 2021-0 Yes [id number] Apply to [facility] e-Hydroq.-T 5-06 area(s) at it y of retinoin 00:00: bedtime. [place] (TRI-JOHN) 00 Medical 0.01-4-0.05 Branch % cream Fluocinolon 2021-0 Yes [id number] Apply to [facility] e-Hydroq.-T 5 area(s) at it y of retinoin 00:00: bedtime. [place] (TRI-JOHN) 00 Medical 0.01-4-0.05 Branch % cream Fluocinolon 1-0 Yes [id number] Apply to [facility] e-Hydroq.-T 5 area(s) at it y of retinoin 00:00: bedtime. [place] (TRI-JOHN) 00 Medical 0.01-4-0.05 Branch % cream Fluocinolon 1-0 Yes [id number] Apply to [facility] e-Hydroq.-T 5 area(s) at it y of retinoin 00:00: bedtime. [place] (TRI-JOHN) 00 Medical 0.01-4-0.05 Branch % cream Fluocinolon 1-0 Yes [id number] Apply to [facility] e-Hydroq.-T 5 area(s) at it y of retinoin 00:00: bedtime. [place] (TRI-JOHN) 00 Medical 0.01-4-0.05 Branch % cream Fluocinolon 1-0 Yes [id number] Apply to [facility] e-Hydroq.-T 5 area(s) at it y of retinoin 00:00: bedtime. [place] (TRI-JOHN) 00 Medical 0.01-4-0.05 Branch % cream Fluocinolon 1-0 Yes [id number] Apply to [facility] e-Hydroq.-T 5 area(s) at it y of retinoin 00:00: bedtime. [place] (TRI-JOHN) 00 Medical 0.01-4-0.05 Branch % cream Fluocinolon 1-0 Yes [id number] Apply to [facility] e-Hydroq.-T 5 area(s) at it y of retinoin 00:00: bedtime. [place] (TRI-JOHN) 00 Medical 0.01-4-0.05 Branch % cream Fluocinolon 2021-0 Yes [id number] Apply to [facility] e-Hydroq.-T 5-06 area(s) at it y of retinoin 00:00: bedtime. [place] (TRI-JOHN) 00 Medical 0.01-4-0.05 Branch % cream Fluocinolon 2021-0 Yes [id number] Apply to [facility] e-Hydroq.-T 506 area(s) at it y of retinoin 00:00: bedtime. [place] (TR[facility]-JOHN) 00 Medical 0.01-4-0.05 Branch % cream Fluocinolon 2021-0 Yes [id number] Apply to [facility] e-Hydroq.-T 5-06 area(s) at it y of retinoin 00:00: bedtime. [place] (TR[facility]-JOHN) 00 Medical 0.01-4-0.05 Branch % cream Fluocinolon 2021-0 Yes [id number] Apply to [facility] e-Hydroq.-T 5-06 area(s) at it y of retinoin 00:00: bedtime. [place] (TRI-JOHN) 00 Medical 0.01-4-0.05 Branch % cream Fluocinolon 1-0 Yes [id number] Apply to [facility] e-Hydroq.-T 506 area(s) at it y of retinoin 00:00: bedtime. [place] (TRI-JOHN) 00 Medical 0.01-4-0.05 Branch % cream Fluocinolon 2021-0 Yes [id number] Apply to [facility] e-Hydroq.-T 5 area(s) at it y of retinoin 00:00: bedtime. [place] (TR[facility]-JOHN) 00 Medical 0.01-4-0.05 Branch % cream Fluocinolon 1-0 Yes [id number] Apply to [facility] e-Hydroq.-T 5 area(s) at it y of retinoin 00:00: bedtime. [place] (TRI-JOHN) 00 Medical 0.01-4-0.05 Branch % cream Fluocinolon 1-0 Yes [id number] Apply to [facility] e-Hydroq.-T 5-06 area(s) at it y of retinoin 00:00: bedtime. [place] (TRI-JOHN) 00 Medical 0.01-4-0.05 Branch % cream Fluocinolon 2021-0 Yes [id number] Apply to [facility] e-Hydroq.-T 5-06 area(s) at it y of retinoin 00:00: bedtime. [place] (TRI-JOHN) 00 Medical 0.01-4-0.05 Branch % cream Fluocinolon 2021-0 Yes [id number] Apply to [facility] e-Hydroq.-T 5-06 area(s) at it y of retinoin 00:00: bedtime. [place] (TRI-JOHN) 00 Medical 0.01-4-0.05 Branch % cream Fluocinolon 2021-0 Yes [id number] Apply to [facility] e-Hydroq.-T 5-06 area(s) at it y of retinoin 00:00: bedtime. [place] ([facility]) 00 Medical 0.01-4-0.05 Branch % cream Fluocinolon 1-0 Yes [id number] Apply to [facility] e-Hydroq.-T 5-06 area(s) at it y of retinoin 00:00: bedtime. [place] ([facility]) 00 Medical 0.01-4-0.05 Branch % cream Fluocinolon 1-0 Yes [id number] Apply to [facility] e-Hydroq.-T 5-06 area(s) at it y of retinoin 00:00: bedtime. [place] ([facility]) 00 Medical 0.01-4-0.05 Branch % cream Fluocinolon 1-0 Yes [id number] Apply to [facility] e-Hydroq.-T 5- area(s) at it y of retinoin 00:00: bedtime. [place] ([facility]) 00 Medical 0.01-4-0.05 Branch % cream Fluocinolon 1-0 Yes [id number] Apply to [facility] e-Hydroq.-T 5 area(s) at it y of retinoin 00:00: bedtime. [place] ([facility]) 00 Medical 0.01-4-0.05 Branch % cream Fluocinolon 1-0 Yes [id number] Apply to [facility] e-Hydroq.-T 5-06 area(s) at it y of retinoin 00:00: bedtime. [place] ([facility]) 00 Medical 0.01-4-0.05 Branch % cream Fluocinolon 2021-0 Yes [id number] Apply to [facility] e-Hydroq.-T 5-06 area(s) at it y of retinoin 00:00: bedtime. [place] ([facility]) 00 Medical 0.01-4-0.05 Branch % cream Fluocinolon 2021-0 Yes [id number] Apply to [facility] e-Hydroq.-T 5-06 area(s) at it y of retinoin 00:00: bedtime. [place] ([facility]) 00 Medical 0.01-4-0.05 Branch % cream Fluocinolon 2021-0 Yes [id number] Apply to [facility] e-Hydroq.-T 5 area(s) at it y of retinoin 00:00: bedtime. [place] ([facility]) 00 Medical 0.01-4-0.05 Branch % cream Fluocinolon 2021-0 Yes [id number] Apply to [facility] e-Hydroq.-T 5-06 area(s) at it y of retinoin 00:00: bedtime. [place] ([facility]) 00 Medical 0.01-4-0.05 Branch % cream Fluocinolon 1-0 Yes [id number] Apply to [facility] e-Hydroq.-T 5 area(s) at it y of retinoin 00:00: bedtime. [place] ([facility]) 00 Medical 0.01-4-0.05 Branch % cream Fluocinolon 1-0 Yes [id number] Apply to [facility] e-Hydroq.-T 5 area(s) at it y of retinoin 00:00: bedtime. [place] ([facility]) 00 Medical 0.01-4-0.05 Branch % cream Fluocinolon 1-0 Yes [id number] Apply to [facility] e-Hydroq.-T 5 area(s) at it y of retinoin 00:00: bedtime. [place] ([facility]) 00 Medical 0.01-4-0.05 Branch % cream Fluocinolon 1-0 Yes [id number] Apply to [facility] e-Hydroq.-T 5 area(s) at it y of retinoin 00:00: bedtime. [place] ([facility]) 00 Medical 0.01-4-0.05 Branch % cream Fluocinolon 2021-0 Yes [id number] Apply to [facility] e-Hydroq.-T 506 area(s) at it y of retinoin 00:00: bedtime. [place] ([facility]) 00 Medical 0.01-4-0.05 Branch % cream Fluocinolon 2021-0 Yes [id number] Apply to [facility] e-Hydroq.-T 5 area(s) at it y of retinoin 00:00: bedtime. [place] ([facility]) 00 Medical 0.01-4-0.05 Branch % cream Fluocinolon 2021-0 Yes [id number] Apply to [facility] e-Hydroq.-T 5-06 area(s) at it y of retinoin 00:00: bedtime. [place] ([facility]) 00 Medical 0.01-4-0.05 Branch % cream Fluocinolon 2021-0 Yes [id number] Apply to [facility] e-Hydroq.-T 5-06 area(s) at it y of retinoin 00:00: bedtime. [place] ([facility]) 00 Medical 0.01-4-0.05 Branch % cream Fluocinolon 2021-0 Yes [id number] Apply to [facility] e-Hydroq.-T 5-06 area(s) at it y of retinoin 00:00: bedtime. [place] ([facility]) 00 Medical 0.01-4-0.05 Branch % cream Fluocinolon 2021-0 Yes [id number] Apply to [facility] e-Hydroq.-T 5-06 area(s) at it y of retinoin 00:00: bedtime. [place] ([facility]) 00 Medical 0.01-4-0.05 Branch % cream Fluocinolon 1-0 Yes [id number] Apply to [facility] e-Hydroq.-T 5-06 area(s) at it y of retinoin 00:00: bedtime. [place] ([facility]) 00 Medical 0.01-4-0.05 Branch % cream Fluocinolon 1-0 Yes [id number] Apply to [facility] e-Hydroq.-T 5-06 area(s) at it y of retinoin 00:00: bedtime. [place] ([facility]) 00 Medical 0.01-4-0.05 Branch % cream Fluocinolon 2021-0 Yes [id number] Apply to [facility] e-Hydroq.-T 5-06 area(s) at it y of retinoin 00:00: bedtime. [place] ([facility]) 00 Medical 0.01-4-0.05 Branch % cream Fluocinolon 2021-0 Yes [id number] Apply to [facility] e-Hydroq.-T 5-06 area(s) at it y of retinoin 00:00: bedtime. [place] ([facility]) 00 Medical 0.01-4-0.05 Branch % cream Fluocinolon 2021-0 Yes [id number] Apply to [facility] e-Hydroq.-T 5-06 area(s) at it y of retinoin 00:00: bedtime. [place] ([facility]) 00 Medical 0.01-4-0.05 Branch % cream Fluocinolon 1-0 Yes [id number] Apply to [facility] e-Hydroq.-T 5-06 area(s) at it y of retinoin 00:00: bedtime. [place] ([facility]) 00 Medical 0.01-4-0.05 Branch % cream Fluocinolon 2020-0 Yes [id number] Apply to [facility] e-Hydroq.-T 5-06 area(s) at it y of retinoin 00:00: bedtime. [place] ([facility]) 00 Medical 0.01-4-0.05 Branch % cream Fluocinolon 2020-0 Yes [id number] Apply to [facility] e-Hydroq.-T 5-06 area(s) at it y of retinoin 00:00: bedtime. [place] ([facility]) 00 Medical 0.01-4-0.05 Branch % cream Fluocinolon 2020-0 Yes [id number] Apply to [facility] e-Hydroq.-T 5- area(s) at it y of retinoin 00:00: bedtime. [place] ([facility]) 00 Medical 0.01-4-0.05 Branch % cream Fluocinolon 2020-0 Yes [id number] Apply to [facility] e-Hydroq.-T 5-06 area(s) at it y of retinoin 00:00: bedtime. [place] ([facility]) 00 Medical 0.01-4-0.05 Branch % cream Fluocinolon 1-0 Yes [id number] Apply to [facility] e-Hydroq.-T 5-06 area(s) at it y of retinoin 00:00: bedtime. [place] ([facility]) 00 Medical 0.01-4-0.05 Branch % cream Fluocinolon 1-0 Yes [id number] Apply to [facility] e-Hydroq.-T 5-06 area(s) at it y of retinoin 00:00: bedtime. [place] ([facility]) 00 Medical 0.01-4-0.05 Branch % cream Fluocinolon 2021-0 Yes [id number] Apply to [facility] e-Hydroq.-T 5-06 area(s) at it y of retinoin 00:00: bedtime. [place] ([facility]) 00 Medical 0.01-4-0.05 Branch % cream Fluocinolon 2021-0 Yes [id number] Apply to [facility] e-Hydroq.-T 5-06 area(s) at it y of retinoin 00:00: bedtime. [place] ([facility]) 00 Medical 0.01-4-0.05 Branch % cream Fluocinolon 1-0 Yes [id number] Apply to [facility] e-Hydroq.-T 5-06 area(s) at it y of retinoin 00:00: bedtime. [place] ([facility]) 00 Medical 0.01-4-0.05 Branch % cream Fluocinolon 1-0 Yes [id number] Apply to [facility] e-Hydroq.-T 5-06 area(s) at it y of retinoin 00:00: bedtime. [place] ([facility]) 00 Medical 0.01-4-0.05 Branch % cream Fluocinolon 1-0 Yes [id number] Apply to [facility] e-Hydroq.-T 506 area(s) at it y of retinoin 00:00: bedtime. [place] ([facility]) 00 Medical 0.01-4-0.05 Branch % cream Fluocinolon 1-0 Yes [id number] Apply to [facility] e-Hydroq.-T 5-06 area(s) at it y of retinoin 00:00: bedtime. [place] ([facility]) 00 Medical 0.01-4-0.05 Branch % cream Fluocinolon 2021-0 Yes [id number] Apply to [facility] e-Hydroq.-T 5-06 area(s) at it y of retinoin 00:00: bedtime. [place] ([facility]) 00 Medical 0.01-4-0.05 Branch % cream Fluocinolon 2021-0 Yes [id number] Apply to [facility] e-Hydroq.-T 5-06 area(s) at it y of retinoin 00:00: bedtime. [place] ([facility]) 00 Medical 0.01-4-0.05 Branch % cream Fluocinolon 2021-0 Yes [id number] Apply to [facility] e-Hydroq.-T 5-06 area(s) at it y of retinoin 00:00: bedtime. [place] ([facility]) 00 Medical 0.01-4-0.05 Branch % cream Fluocinolon 2021-0 Yes [id number] Apply to [facility] e-Hydroq.-T 5-06 area(s) at it y of retinoin 00:00: bedtime. [place] ([facility]) 00 Medical 0.01-4-0.05 Branch % cream Fluocinolon 2021-0 Yes [id number] Apply to [facility] e-Hydroq.-T 506 area(s) at it y of retinoin 00:00: bedtime. [place] ([facility]) 00 Medical 0.01-4-0.05 Branch % cream Fluocinolon 2021-0 Yes [id number] Apply to [facility] e-Hydroq.-T 506 area(s) at it y of retinoin 00:00: bedtime. [place] ([facility]) 00 Medical 0.01-4-0.05 Branch % cream Fluocinolon 1-0 Yes [id number] Apply to [facility] e-Hydroq.-T 5 area(s) at it y of retinoin 00:00: bedtime. [place] ([facility]) 00 Medical 0.01-4-0.05 Branch % cream Fluocinolon 1-0 Yes [id number] Apply to [facility] e-Hydroq.-T 506 area(s) at it y of retinoin 00:00: bedtime. [place] ([facility]) 00 Medical 0.01-4-0.05 Branch % cream Fluocinolon 2021-0 Yes [id number] Apply to [facility] e-Hydroq.-T 5-06 area(s) at it y of retinoin 00:00: bedtime. [place] ([facility]) 00 Medical 0.01-4-0.05 Branch % cream Fluocinolon 2021-0 Yes [id number] Apply to [facility] e-Hydroq.-T 5-06 area(s) at it y of retinoin 00:00: bedtime. [place] ([facility]) 00 Medical 0.01-4-0.05 Branch % cream Fluocinolon 2021-0 Yes [id number] Apply to [facility] e-Hydroq.-T 5-06 area(s) at it y of retinoin 00:00: bedtime. [place] ([facility]) 00 Medical 0.01-4-0.05 Branch % cream Fluocinolon 2021-0 Yes [id number] Apply to [facility] e-Hydroq.-T 5-06 area(s) at it y of retinoin 00:00: bedtime. [place] ([facility]) 00 Medical 0.01-4-0.05 Branch % cream Fluocinolon 2021-0 Yes [id number] Apply to [facility] e-Hydroq.-T 5-06 area(s) at it y of retinoin 00:00: bedtime. [place] ([facility]) 00 Medical 0.01-4-0.05 Branch % cream Fluocinolon 2021-0 Yes [id number] Apply to [facility] e-Hydroq.-T 5-06 area(s) at it y of retinoin 00:00: bedtime. [place] ([facility]) 00 Medical 0.01-4-0.05 Branch % cream Fluocinolon 1-0 Yes [id number] Apply to [facility] e-Hydroq.-T 5-06 area(s) at it y of retinoin 00:00: bedtime. [place] ([facility]) 00 Medical 0.01-4-0.05 Branch % cream Fluocinolon 2021-0 Yes [id number] Apply to [facility] e-Hydroq.-T 5-06 area(s) at it y of retinoin 00:00: bedtime. [place] ([facility]) 00 Medical 0.01-4-0.05 Branch % cream Fluocinolon 2021-0 Yes [id number] Apply to [facility] e-Hydroq.-T 5-06 area(s) at it y of retinoin 00:00: bedtime. [place] ([facility]) 00 Medical 0.01-4-0.05 Branch % cream Fluocinolon 2021-0 Yes [id number] Apply to [facility] e-Hydroq.-T 5-06 area(s) at it y of retinoin 00:00: bedtime. [place] ([facility]) 00 Medical 0.01-4-0.05 Branch % cream Fluocinolon 2021-0 Yes [id number] Apply to [facility] e-Hydroq.-T 5-06 area(s) at it y of retinoin 00:00: bedtime. [place] ([facility]) 00 Medical 0.01-4-0.05 Branch % cream Fluocinolon 2021-0 Yes [id number] Apply to [facility] e-Hydroq.-T 5-06 area(s) at it y of retinoin 00:00: bedtime. [place] ([facility]) 00 Medical 0.01-4-0.05 Branch % cream Fluocinolon 2021-0 Yes [id number] Apply to [facility] e-Hydroq.-T 5-06 area(s) at it y of retinoin 00:00: bedtime. [place] ([facility]) 00 Medical 0.01-4-0.05 Branch % cream Fluocinolon 2021-0 Yes [id number] Apply to [facility] e-Hydroq.-T 5-06 area(s) at it y of retinoin 00:00: bedtime. [place] ([facility]) 00 Medical 0.01-4-0.05 Branch % cream Fluocinolon 2021-0 Yes [id number] Apply to [facility] e-Hydroq.-T 5-06 area(s) at it y of retinoin 00:00: bedtime. [place] ([facility]) 00 Medical 0.01-4-0.05 Branch % cream Fluocinolon 2021-0 Yes [id number] Apply to [facility] e-Hydroq.-T 5-06 area(s) at it y of retinoin 00:00: bedtime. [place] ([facility]) 00 Medical 0.01-4-0.05 Branch % cream Fluocinolon 2021-0 Yes [id number] Apply to [facility] e-Hydroq.-T 5-06 area(s) at it y of retinoin 00:00: bedtime. [place] ([facility]) 00 Medical 0.01-4-0.05 Branch % cream Fluocinolon 2021-0 Yes [id number] Apply to [facility] e-Hydroq.-T 5-06 area(s) at it y of retinoin 00:00: bedtime. [place] ([facility]) 00 Medical 0.01-4-0.05 Branch % cream Fluocinolon 2021-0 Yes [id number] Apply to [facility] e-Hydroq.-T 5-06 area(s) at it y of retinoin 00:00: bedtime. [place] ([facility]) 00 Medical 0.01-4-0.05 Branch % cream Fluocinolon 2021-0 Yes [id number] Apply to [facility] e-Hydroq.-T 5-06 area(s) at it y of retinoin 00:00: bedtime. [place] ([facility]) 00 Medical 0.01-4-0.05 Branch % cream Fluocinolon 2021-0 Yes [id number] Apply to [facility] e-Hydroq.-T 5-06 area(s) at it y of retinoin 00:00: bedtime. [place] ([facility]) 00 Medical 0.01-4-0.05 Branch % cream Fluocinolon 2021-0 Yes [id number] Apply to [facility] e-Hydroq.-T 5-06 area(s) at it y of retinoin 00:00: bedtime. [place] ([facility]) 00 Medical 0.01-4-0.05 Branch % cream Fluocinolon 2021-0 Yes [id number] Apply to [facility] e-Hydroq.-T 5-06 area(s) at it y of retinoin 00:00: bedtime. [place] ([facility]) 00 Medical 0.01-4-0.05 Branch % cream Fluocinolon 2021-0 Yes [id number] Apply to [facility] e-Hydroq.-T 5-06 area(s) at it y of retinoin 00:00: bedtime. [place] ([facility]) 00 Medical 0.01-4-0.05 Branch % cream Fluocinolon 2021-0 Yes [id number] Apply to [facility] e-Hydroq.-T 5-06 area(s) at it y of retinoin 00:00: bedtime. [place] ([facility]) 00 Medical 0.01-4-0.05 Branch % cream Fluocinolon 2021-0 Yes [id number] Apply to [facility] e-Hydroq.-T 5-06 area(s) at it y of retinoin 00:00: bedtime. [place] ([facility]) 00 Medical 0.01-4-0.05 Branch % cream CLOTRIMAZOL 2020- No [id number] APPLY TO [facility] E-BETAMETHA 11-21 11-10 AFFECTED ity of SONE cream 00:00: 00:00 AREA TWICE [place] 00 :00 A DAY Medical Branch SITagliptin 2020- No [id number] 100mg Take 1 [facility] ([facility]) 4- 10-04 tablet by ity of 100 mg 00:00: 00:00 mouth [place] tablet 00 :00 daily. Medical Branch Diclofenac Yes Apply 1 g Un violeta Sodium 4-13 to the ity of (VOLTAREN) 00:00: affected [place] as 1 % gel 00 area TID Medical PRN. Branch Diclofenac Yes Apply 1 g Un violeta Sodium 4-13 to the ity of (VOLTAREN) 00:00: affected [place] [facility] 1 % gel 00 area TID Medical PRN. Branch Diclofenac Yes Apply 1 g Un violeta Sodium 4-13 to the ity of (VOLTAREN) 00:00: affected [place] 1 % gel 00 area TID Medical PRN. Branch Diclofenac Yes Apply 1 g Un violeta Sodium 4-13 to the ity of (VOLTAREN) 00:00: affected [place] as 1 % gel 00 area TID Medical PRN. Branch Diclofenac Yes Apply 1 g Un violeta Sodium 4-13 to the ity of (VOLTAREN) 00:00: affected [place] [facility] 1 % gel 00 area TID Medical PRN. Branch Diclofenac Yes Apply 1 g Un violeta Sodium 4-13 to the ity of (VOLTAREN) 00:00: affected [place] 1 % gel 00 area TID Medical PRN. Branch Diclofenac Yes Apply 1 g Un violeta Sodium 4-13 to the ity of (VOLTAREN) 00:00: affected [place] 1 % gel 00 area TID Medical PRN. Branch Diclofenac Yes Apply 1 g Un violeta Sodium 4-13 to the ity of (VOLTAREN) 00:00: affected [place] as 1 % gel 00 area TID Medical PRN. Branch Diclofenac Yes Apply 1 g Un violeta Sodium 4-13 to the ity of (VOLTAREN) 00:00: affected [place] as 1 % gel 00 area TID Medical PRN. Branch Diclofenac Yes Apply 1 g Un violeta Sodium 4-13 to the ity of (VOLTAREN) 00:00: affected [place] 1 % gel 00 area TID Medical PRN. Branch Diclofenac Yes Apply 1 g Un violeta Sodium 4-13 to the ity of (VOLTAREN) 00:00: affected [place] 1 % gel 00 area TID Medical PRN. Branch Diclofenac Yes Apply 1 g Un violeta Sodium 4-13 to the ity of (VOLTAREN) 00:00: affected [place] as 1 % gel 00 area TID Medical PRN. Branch Diclofenac Yes Apply 1 g Un violeta Sodium 4-13 to the ity of (VOLTAREN) 00:00: affected [place] 1 % gel 00 area TID Medical PRN. Branch Diclofenac Yes Apply 1 g Un violeta Sodium 4-13 to the ity of (VOLTAREN) 00:00: affected [place] as 1 % gel 00 area TID Medical PRN. Branch Diclofenac Yes Apply 1 g Un violeta Sodium 4-13 to the ity of (VOLTAREN) 00:00: affected [place] as 1 % gel 00 area TID Medical PRN. Branch Diclofenac Yes Apply 1 g Un violeta Sodium 4-13 to the ity of (VOLTAREN) 00:00: affected [place] as 1 % gel 00 area TID Medical PRN. Branch Diclofenac Yes Apply 1 g Un violeta Sodium 4-13 to the ity of (VOLTAREN) 00:00: affected [place] as 1 % gel 00 area TID Medical PRN. Branch Diclofenac Yes Apply 1 g Un violeta Sodium 4-13 to the ity of (VOLTAREN) 00:00: affected [place] as 1 % gel 00 area TID Medical PRN. Branch Diclofenac 2020- Yes Apply 1 g Un violeta Sodium 4-13 to the ity of (VOLTAREN) 00:00: affected [place] as 1 % gel 00 area TID Medical PRN. Branch Diclofenac 2020- Yes Apply 1 g Un violeta Sodium 4-13 to the ity of (VOLTAREN) 00:00: affected [place] as 1 % gel 00 area TID Medical PRN. Branch Diclofenac Yes Apply 1 g Un violeta Sodium 4-13 to the ity of (VOLTAREN) 00:00: affected [place] as 1 % gel 00 area TID Medical PRN. Branch Diclofenac Yes Apply 1 g Un violeta Sodium 4-13 to the ity of (VOLTAREN) 00:00: affected [place] as 1 % gel 00 area TID Medical PRN. Branch Diclofenac Yes Apply 1 g Un violeta Sodium 4-13 to the ity of (VOLTAREN) 00:00: affected [place] as 1 % gel 00 area TID Medical PRN. Branch Diclofenac Yes Apply 1 g Un violeta Sodium 4-13 to the ity of (VOLTAREN) 00:00: affected [place] as 1 % gel 00 area TID Medical PRN. Branch Diclofenac Yes Apply 1 g Un violeta Sodium 4-13 to the ity of (VOLTAREN) 00:00: affected [place] as 1 % gel 00 area TID Medical PRN. Branch Diclofenac Yes Apply 1 g Un violeta Sodium 4-13 to the ity of (VOLTAREN) 00:00: affected [place] as 1 % gel 00 area TID Medical PRN. Branch Diclofenac Yes Apply 1 g Un violeta Sodium 4-13 to the ity of (VOLTAREN) 00:00: affected [place] as 1 % gel 00 area TID Medical PRN. Branch Diclofenac Yes Apply 1 g Un violeta Sodium 4-13 to the ity of (VOLTAREN) 00:00: affected [place] as 1 % gel 00 area TID Medical PRN. Branch Diclofenac Yes Apply 1 g Un violeta Sodium 4-13 to the ity of (VOLTAREN) 00:00: affected [place] as 1 % gel 00 area TID Medical PRN. Branch Diclofenac Yes Apply 1 g Un violeta Sodium 4-13 to the ity of (VOLTAREN) 00:00: affected [place] as 1 % gel 00 area TID Medical PRN. Branch Diclofenac Yes Apply 1 g Un violeta Sodium 4-13 to the ity of (VOLTAREN) 00:00: affected [place] as 1 % gel 00 area TID Medical PRN. Branch Diclofenac Yes Apply 1 g Un violeta Sodium 4-13 to the ity of (VOLTAREN) 00:00: affected [place] as 1 % gel 00 area TID Medical PRN. Branch Diclofenac Yes Apply 1 g Un violeta Sodium 4-13 to the ity of (VOLTAREN) 00:00: affected [place] as 1 % gel 00 area TID Medical PRN. Branch Diclofenac Yes Apply 1 g Un violeta Sodium 4-13 to the ity of (VOLTAREN) 00:00: affected [place] as 1 % gel 00 area TID Medical PRN. Branch Diclofenac Yes Apply 1 g Un violeta Sodium 4-13 to the ity of (VOLTAREN) 00:00: affected [place] as 1 % gel 00 area TID Medical PRN. Branch Diclofenac Yes Apply 1 g Un violeta Sodium 4-13 to the ity of (VOLTAREN) 00:00: affected [place] as 1 % gel 00 area TID Medical PRN. Branch Diclofenac Yes Apply 1 g Un violeta Sodium 4-13 to the ity of (VOLTAREN) 00:00: affected [place] as 1 % gel 00 area TID Medical PRN. Branch Diclofenac Yes Apply 1 g Un violeta Sodium 4-13 to the ity of (VOLTAREN) 00:00: affected [place] as 1 % gel 00 area TID Medical PRN. Branch Diclofenac Yes Apply 1 g Un violeta Sodium 4-13 to the ity of (VOLTAREN) 00:00: affected [place] as 1 % gel 00 area TID Medical PRN. Branch Diclofenac Yes Apply 1 g Un violeta Sodium 4-13 to the ity of (VOLTAREN) 00:00: affected [place] as 1 % gel 00 area TID Medical PRN. Branch Diclofenac Yes Apply 1 g Un violeta Sodium 4-13 to the ity of (VOLTAREN) 00:00: affected [place] as 1 % gel 00 area TID Medical PRN. Branch Diclofenac Yes Apply 1 g Un violeta Sodium 4-13 to the ity of (VOLTAREN) 00:00: affected [place] as 1 % gel 00 area TID Medical PRN. Branch Diclofenac Yes Apply 1 g Un violeta Sodium 4-13 to the ity of (VOLTAREN) 00:00: affected [place] as 1 % gel 00 area TID Medical PRN. Branch Diclofenac Yes Apply 1 g Un violeta Sodium 4-13 to the ity of (VOLTAREN) 00:00: affected [place] as 1 % gel 00 area TID Medical PRN. Branch Diclofenac Yes Apply 1 g Un violeta Sodium 4-13 to the ity of (VOLTAREN) 00:00: affected [place] as 1 % gel 00 area TID Medical PRN. Branch Diclofenac Yes Apply 1 g Un violeta Sodium 4-13 to the ity of (VOLTAREN) 00:00: affected [place] as 1 % gel 00 area TID Medical PRN. Branch Diclofenac Yes Apply 1 g Un violeta Sodium 4-13 to the ity of (VOLTAREN) 00:00: affected [place] as 1 % gel 00 area TID Medical PRN. Branch Diclofenac Yes Apply 1 g Un violeta Sodium 4-13 to the ity of (VOLTAREN) 00:00: affected [place] as 1 % gel 00 area TID Medical PRN. Branch Diclofenac Yes Apply 1 g Un violeta Sodium 4-13 to the ity of (VOLTAREN) 00:00: affected [place] as 1 % gel 00 area TID Medical PRN. Branch Diclofenac Yes Apply 1 g Un violeta Sodium 4-13 to the ity of (VOLTAREN) 00:00: affected [place] as 1 % gel 00 area TID Medical PRN. Branch Diclofenac Yes Apply 1 g Un violeta Sodium 4-13 to the ity of (VOLTAREN) 00:00: affected [place] as 1 % gel 00 area TID Medical PRN. Branch Diclofenac Yes Apply 1 g Un violeta Sodium 4-13 to the ity of (VOLTAREN) 00:00: affected [place] as 1 % gel 00 area TID Medical PRN. Branch Diclofenac Yes Apply 1 g Un violeta Sodium 4-13 to the ity of (VOLTAREN) 00:00: affected [place] as 1 % gel 00 area TID Medical PRN. Branch Diclofenac Yes Apply 1 g Un violeta Sodium 4-13 to the ity of (VOLTAREN) 00:00: affected [place] as 1 % gel 00 area TID Medical PRN. Branch Diclofenac Yes Apply 1 g Un violeta Sodium 4-13 to the ity of (VOLTAREN) 00:00: affected [place] as 1 % gel 00 area TID Medical PRN. Branch Diclofenac Yes Apply 1 g Un violeta Sodium 4-13 to the ity of (VOLTAREN) 00:00: affected [place] as 1 % gel 00 area TID Medical PRN. Branch Diclofenac Yes Apply 1 g Un violeta Sodium 4-13 to the ity of (VOLTAREN) 00:00: affected [place] as 1 % gel 00 area TID Medical PRN. Branch Diclofenac Yes Apply 1 g Un violeta Sodium 4-13 to the ity of (VOLTAREN) 00:00: affected [place] as 1 % gel 00 area TID Medical PRN. Branch Diclofenac Yes Apply 1 g Un violeta Sodium 4-13 to the ity of (VOLTAREN) 00:00: affected [place] as 1 % gel 00 area TID Medical PRN. Branch Diclofenac Yes Apply 1 g Un violeta Sodium 4-13 to the ity of (VOLTAREN) 00:00: affected [place] as 1 % gel 00 area TID Medical PRN. Branch Diclofenac Yes Apply 1 g Un violeta Sodium 4-13 to the ity of (VOLTAREN) 00:00: affected [place] as 1 % gel 00 area TID Medical PRN. Branch Diclofenac Yes Apply 1 g Un violeta Sodium 4-13 to the ity of (VOLTAREN) 00:00: affected [place] as 1 % gel 00 area TID Medical PRN. Branch Diclofenac Yes Apply 1 g Un violeta Sodium 4-13 to the ity of (VOLTAREN) 00:00: affected [place] as 1 % gel 00 area TID Medical PRN. Branch Diclofenac Yes Apply 1 g Un violeta Sodium 4-13 to the ity of (VOLTAREN) 00:00: affected [place] as 1 % gel 00 area TID Medical PRN. Branch Diclofenac Yes Apply 1 g Un violeta Sodium 4-13 to the ity of (VOLTAREN) 00:00: affected [place] as 1 % gel 00 area TID Medical PRN. Branch Diclofenac Yes Apply 1 g Un violeta Sodium 4-13 to the ity of (VOLTAREN) 00:00: affected [place] as 1 % gel 00 area TID Medical PRN. Branch Diclofenac Yes Apply 1 g Un violeta Sodium 4-13 to the ity of (VOLTAREN) 00:00: affected [place] as 1 % gel 00 area TID Medical PRN. Branch Diclofenac Yes Apply 1 g Un violeta Sodium 4-13 to the ity of (VOLTAREN) 00:00: affected [place] as 1 % gel 00 area TID Medical PRN. Branch Diclofenac Yes Apply 1 g Un violeta Sodium 4-13 to the ity of (VOLTAREN) 00:00: affected [place] 1 % gel 00 area [facility] PRN. Branch Diclofenac Yes Apply 1 g Un violeta Sodium 4-13 to the ity of (VOLTAREN) 00:00: affected [place] 1 % gel 00 area [facility] PRN. Branch Diclofenac Yes Apply 1 g Un violeta Sodium 4-13 to the ity of (VOLTAREN) 00:00: affected [place] 1 % gel 00 area [facility] PRN. Branch Diclofenac Yes Apply 1 g Un violeta Sodium 4-13 to the ity of (VOLTAREN) 00:00: affected [place] 1 % gel 00 area [facility] PRN. Branch Diclofenac Yes Apply 1 g Un violeta Sodium 4-13 to the ity of (VOLTAREN) 00:00: affected [place] 1 % gel 00 area [facility] PRN. Branch Diclofenac Yes Apply 1 g Un violeta Sodium 4-13 to the ity of (VOLTAREN) 00:00: affected [place] 1 % gel 00 area [facility] PRN. Branch Diclofenac Yes Apply 1 g Un violeta Sodium 4-13 to the ity of (VOLTAREN) 00:00: affected [place] 1 % gel 00 area [facility] PRN. Branch Diclofenac Yes Apply 1 g Un violeta Sodium 4-13 to the ity of (VOLTAREN) 00:00: affected [place] 1 % gel 00 area [facility] PRN. Branch Diclofenac Yes Apply 1 g Un violeta Sodium 4-13 to the ity of (VOLTAREN) 00:00: affected [place] as 1 % gel 00 area [facility] PRN. Branch Diclofenac Yes Apply 1 g Un violeta Sodium 4-13 to the ity of (VOLTAREN) 00:00: affected [place] 1 % gel 00 area [facility] PRN. Branch Diclofenac Yes Apply 1 g Un violeta Sodium 4-13 to the ity of (VOLTAREN) 00:00: affected [place] as 1 % gel 00 area [facility] PRN. Branch Diclofenac Yes Apply 1 g Un violeta Sodium 4-13 to the ity of (VOLTAREN) 00:00: affected [place] as 1 % gel 00 area [facility] PRN. Branch Diclofenac Yes Apply 1 g Un violeta Sodium 4-13 to the ity of (VOLTAREN) 00:00: affected [place] as 1 % gel 00 area [facility] PRN. Branch Diclofenac Yes Apply 1 g Un violeta Sodium 4-13 to the ity of (VOLTAREN) 00:00: affected [place] as 1 % gel 00 area [facility] PRN. Branch Diclofenac Yes Apply 1 g Un violeta Sodium 4-13 to the ity of (VOLTAREN) 00:00: affected [place] as 1 % gel 00 area [facility] PRN. Branch Diclofenac Yes Apply 1 g Un violeta Sodium 4-13 to the ity of (VOLTAREN) 00:00: affected [place] as 1 % gel 00 area TID Medical PRN. Branch Diclofenac Yes Apply 1 g Un violeta Sodium 4-13 to the ity of (VOLTAREN) 00:00: affected [place] as 1 % gel 00 area TID Medical PRN. Branch Diclofenac 2020- Yes Apply 1 g Un violeta Sodium 4-13 to the ity of (VOLTAREN) 00:00: affected [place] as 1 % gel 00 area TID Medical PRN. Branch Diclofenac Yes Apply 1 g Un viole[place] Sodium 4-13 to the ity of (VOLTAREN) 00:00: affected [place] as 1 % gel 00 area TID Medical PRN. Branch Diclofenac Yes Apply 1 g Un vio[place] Sodium 4-13 to the ity of (VOLTAREN) 00:00: affected [place] as 1 % gel 00 area TID Medical PRN. Branch Diclofenac Yes Apply 1 g Un violeta Sodium 4-13 to the ity of (VOLTAREN) 00:00: affected [place] 1 % gel 00 area TID Medical PRN. Branch Diclofenac Yes Apply 1 g Un violeta Sodium 4-13 to the ity of (VOLTAREN) 00:00: affected [place] 1 % gel 00 area TID Medical PRN. Branch Diclofenac Yes Apply 1 g Un viole[place] Sodium 4-13 to the ity of (VOLTAREN) 00:00: affected [place] 1 % gel 00 area TID Medical PRN. Branch Diclofenac Yes Apply 1 g Un violeta Sodium 4-13 to the ity of (VOLTAREN) 00:00: affected [place] 1 % gel 00 area TID Medical PRN. Branch Diclofenac Yes Apply 1 g Un viole[place] Sodium 4-13 to the ity of (VOLTAREN) 00:00: affected [place] 1 % gel 00 area TID Medical PRN. Branch Diclofenac Yes Apply 1 g Un violeta Sodium 4-13 to the ity of (VOLTAREN) 00:00: affected [place] 1 % gel 00 area TID Medical PRN. Branch Diclofenac Yes Apply 1 g Un violeta Sodium 4-13 to the ity of (VOLTAREN) 00:00: affected [place] 1 % gel 00 area TID Medical PRN. Branch Diclofenac Yes Apply 1 g Un violeta Sodium 4-13 to the ity of (VOLTAREN) 00:00: affected [place] 1 % gel 00 area TID Medical PRN. Branch Diclofenac 2020-0 Yes Apply 1 g Un violeta Sodium 4-13 to the ity of (VOLTAREN) 00:00: affected [place] 1 % gel 00 area TID Medical PRN. Branch Diclofenac 2020- Yes Apply 1 g Un violeta Sodium 4-13 to the ity of (VOLTAREN) 00:00: affected [place] 1 % gel 00 area TID Medical PRN. Branch Diclofenac Yes Apply 1 g Un vioelta Sodium 4-13 to the ity of (VOLTAREN) 00:00: affected [place] 1 % gel 00 area TID Medical PRN. Branch Diclofenac Yes Apply 1 g Un violeta Sodium 4-13 to the ity of (VOLTAREN) 00:00: affected [place] as 1 % gel 00 area TID Medical PRN. Branch ibuprofen 2020- No 800mg Take 1 [facility] ers 800 mg 4- 10- tablet by ity of tablet 00:00: 00:00 mouth 3 [place] 00 :00 (three) Medical times Branch daily. dapaglifloz 2020- No [id number] 10mg Take 1 [facility] in 3-08 04- tablet by ity of (FARXIGA) 00:00: 00:00 mouth [place] 10 mg 00 :00 daily. Medical tablet Branch meloxicam 2020- No 15mg Take 15 mg U nivers 15 mg 2-10 02-10 by mouth ity of tablet 19:25: 00:00 once daily [place] 56 :00 as needed Medical for Pain. Branch MELOXICAM 2020- No [id number] TAKE 1 U nivers 15 mg 2-10 10-04 TABLET ity of tablet 00:00: 00:00 DAILY [place] 00 :00 NEEDED FOR Medical JOINT PAIN Branch lisinopril- 2020- No 1{tbl} Take 1 U nivers hydrochloro -17 08-23 tablet by it y of thiazide 14:42: 00:00 mouth [place] 20-12.5 mg 39 :00 daily. Medical per tablet Branch lisinopril- 2020- No 1{tbl} Take 1 U nivers hydrochloro -17 08-23 tablet by it y of thiazide 14:42: 00:00 mouth [place] 20-12.5 mg 39 :00 daily. Medical per tablet Branch ergocalcife 2020- No [id number] Take 1 [facility] rol, 1-08 05-10 capsule by ity of vitamin d2, 00:00: 00:00 mouth [place] 1,250 mcg 00 :00 weekly. Medical (50,000 Branch unit) capsule ferrous 2020- No [id number] 325mg Take 1 Un violeta sulfate 325 08-0110 tablet by it y of mg (65 mg 00:00: 00:00 mouth [place] iron) 00 :00 every Medical tablet other day. Branch zolpidem 5 2020- No [id number] 5mg Take 1 [facility] mg tablet 08-01 tablet by ity of 00:00: 00:00 mouth at [place] 00 :00 bedtime as Medical needed for Branch Insomnia for up to 28 doses. metaxalone 2020- No 800mg Take 800 U nivers 800 mg 07-30 mg by ity of tablet 15:57: 00:00 mouth 4 [place] 21 :00 (four) Medical times Branch daily. lamoTRIgine 2020- No 150mg Take 150 [facility] 100 mg 07-30 mg by ity of tablet 15:57: 00:00 mouth at [place] 05 :00 bedtime. Medical Branch clonazePAM 2020- No 2mg Take 2 mg U nivers 2 mg tablet 07-30 by mouth ity of 10:42: 00:00 daily. [place] 03 :00 Medical Branch buPROPion 2020- No 300mg Take 300 Un violeta XL 300 mg 07-30 mg by ity of 24 hr 10:40: 00:00 mouth [place] tablet 54 :00 daily. Medical Branch FLUoxetine 2020- No 40mg Take 40 mg [facility] 40 mg 07-30 by mouth ity of capsule 10:40: 00:00 daily. [place] 48 :00 Medical Branch foLIC acid 2020- No [id number] 1mg Take 1 [facility] 1 mg tablet 07-30 tablet by it y of 00:00: 00:00 mouth [place] 00 :00 daily. Medical Branch ramelteon 8 2020- No [id number] 8mg Take 1 [facility] mg tablet 07-30 tablet by ity of 00:00: 00:00 mouth at [place] 00 :00 bedtime. Medical Branch cyanocobala 2020- No [id number] 2000ug Take 1 [facility] min 1-05 10-04 tablet by ity of (VITAMIN 00:00: 00:00 mouth [facility]-12) 2,000 00 :00 daily. Medica l mcg tablet Branch foLIC acid 2020- No [id number] 1mg Take 1 [facility] 1 mg tablet - 10-04 tablet by it y of 00:00: 00:00 mouth [place] 00 :00 daily. Medical Branch ramelteon 8 2020- No [id number] 8mg Take 1 [facility] mg tablet - 10-04 tablet by ity of 00:00: 00:00 mouth at [place] 00 :00 bedtime. Medical Branch cyanocobala 2020- No [id number] 2000ug Take 1 [facility] min 1-05 10-04 tablet by ity of (VITAMIN 00:00: 00:00 mouth [facility]-12) 2,000 00 :00 daily. Medica l mcg tablet Branch hydrOXYchlo 2020- No [id number] 400mg Take 2 Univers roQUINE 07-30 08-16 tablets by ity o f (PLAQUENIL) 00:00: 00:00 mouth [place] 200 mg 00 :00 daily. Medical tablet Branch methotrexat 2020- No [id number] 12.5mg Take 5 Univers e 2.5 mg 07-30-17 tablets by ity of tablet 00:00: 00:00 mouth [place] 00 :00 weekly Medical Branch atorvastati 2020- No [id number] 10mg Take 1 [facility] n 10 mg 07-30 05-10 tablet by ity of tablet 00:00: 00:00 mouth at [place] 00 :00 bedtime. Medical Branch ibuprofen 2019-07- No [id number] 800mg Take 1 [facility] 800 mg 2-29 02-10 tablet by ity of tablet 00:00: 00:00 mouth [place] 00 :00 every 6 Medical (six) Branch hours as needed for Pain (scale 4-6). LATANOPROST 2019-07- No [id number] PUT 1 DROP Univers 0.005 % -09 11-14 INTO BOTH ity of ophthalmic 00:00: 00:00 EYES EVERY [place] drops 00 :00 EVENING Medical Branch LATANOPROST 2019-07- No [id number] PUT 1 DROP Univers 0.005 % 2-17 04-14 INTO BOTH ity of ophthalmic 00:00: 00:00 EYES EVERY [place] drops 00 :00 EVENING Medical Branch LATANOPROST 2019-07- No [id number] PUT 1 DROP Univers 0.005 % 2-17 04-14 INTO BOTH ity of ophthalmic 00:00: 00:00 EYES EVERY [place] drops 00 :00 EVENING Medical Branch TIMOLOL 0.5 2019-07- No [id number] INSTILL 1 Univers % 2-11 04-14 DROP IN ity of ophthalmic 00:00: 00:00 BOTH EYES [place] solution 00 :00 EVERY Medical MORNING Branch TIMOLOL 0.5 2019-07- No [id number] INSTILL 1 [facility] % 2-11 04-14 DROP IN ity of ophthalmic 00:00: 00:00 BOTH EYES [place] solution 00 :00 EVERY Medical MORNING Branch TIMOLOL 0.5 2019-07- No [id number] INSTILL 1 Univers % 2-11 04-14 DROP IN ity of ophthalmic 00:00: 00:00 BOTH EYES [place] solution 00 :00 EVERY Medical MORNING Branch ammonium 2020- Yes [id number] Apply to U nivers lactate 12 2-08 area(s) ity of % cream 00:00: daily. Medical Branch ammonium 2020-1 Yes [id number] Apply to U nivers lactate 12 2-08 area(s) ity of % cream 00:00: daily. Medical Branch ammonium 2020-1 Yes [id number] Apply to U nivers lactate 12 2-08 area(s) ity of % cream 00:00: daily. Medical Branch ammonium 2020-1 Yes [id number] Apply to U nivers lactate 12 2-08 area(s) ity of % cream 00:00: daily. Medical Branch ammonium 2020-1 Yes [id number] Apply to U nivers lactate 12 2-08 area(s) ity of % cream 00:00: daily. Medical Branch ammonium 2020-1 Yes [id number] Apply to U nivers lactate 12 2-08 area(s) ity of % cream 00:00: daily. Medical Branch ammonium 2020-1 Yes [id number] Apply to U nivers lactate 12 2-08 area(s) ity of % cream 00:00: daily. Medical Branch ammonium 2020-1 Yes [id number] Apply to U nivers lactate 12 2-08 area(s) ity of % cream 00:00: daily. Medical Branch ammonium 2020-1 Yes [id number] Apply to U nivers lactate 12 2-08 area(s) ity of % cream 00:00: daily. Medical Branch ammonium 2020-1 Yes [id number] Apply to U nivers lactate 12 2-08 area(s) ity of % cream 00:00: daily. Medical Branch ammonium 2020-1 Yes [id number] Apply to U nivers lactate 12 2-08 area(s) ity of % cream 00:00: daily. Medical Branch ammonium 2020-1 Yes [id number] Apply to U nivers lactate 12 2-08 area(s) ity of % cream 00:00: daily. Medical Branch ammonium 2020-1 Yes [id number] Apply to U nivers lactate 12 2-08 area(s) ity of % cream 00:00: daily. Medical Branch ammonium 2020-1 Yes [id number] Apply to U nivers lactate 12 2-08 area(s) ity of % cream 00:00: daily. Medical Branch ammonium 2020-1 Yes [id number] Apply to U nivers lactate 12 2-08 area(s) ity of % cream 00:00: daily. Medical Branch ammonium 2020-1 Yes [id number] Apply to U nivers lactate 12 2-08 area(s) ity of % cream 00:00: daily. Medical Branch ammonium 2020-1 Yes [id number] Apply to U nivers lactate 12 2-08 area(s) ity of % cream 00:00: daily. Medical Branch ammonium 2020-1 Yes [id number] Apply to U nivers lactate 12 2-08 area(s) ity of % cream 00:00: daily. Medical Branch ammonium 2020-1 Yes [id number] Apply to U nivers lactate 12 2-08 area(s) ity of % cream 00:00: daily. Medical Branch ammonium 2020-1 Yes [id number] Apply to U nivers lactate 12 2-08 area(s) ity of % cream 00:00: daily. Medical Branch ammonium 2020-1 Yes [id number] Apply to U nivers lactate 12 2-08 area(s) ity of % cream 00:00: daily. Medical Branch ammonium 2020-1 Yes [id number] Apply to U nivers lactate 12 2-08 area(s) ity of % cream 00:00: daily. Medical Branch ammonium 2020-1 Yes [id number] Apply to U nivers lactate 12 2-08 area(s) ity of % cream 00:00: daily. Medical Branch ammonium 2020-1 Yes [id number] Apply to U nivers lactate 12 2-08 area(s) ity of % cream 00:00: daily. Medical Branch ammonium 2020-1 Yes [id number] Apply to U nivers lactate 12 2-08 area(s) ity of % cream 00:00: daily. Medical Branch ammonium 2020-1 Yes [id number] Apply to U nivers lactate 12 2-08 area(s) ity of % cream 00:00: daily. Medical Branch ammonium 2020-1 Yes [id number] Apply to U nivers lactate 12 2-08 area(s) ity of % cream 00:00: daily. Medical Branch ammonium 2020-1 Yes [id number] Apply to U nivers lactate 12 2-08 area(s) ity of % cream 00:00: daily. Medical Branch ammonium 2020-1 Yes [id number] Apply to U nivers lactate 12 2-08 area(s) ity of % cream 00:00: daily. Medical Branch ammonium 2020-1 Yes [id number] Apply to U nivers lactate 12 2-08 area(s) ity of % cream 00:00: daily. Medical Branch ammonium 2020-1 Yes [id number] Apply to U nivers lactate 12 2-08 area(s) ity of % cream 00:00: daily. Medical Branch ammonium 2020-1 Yes [id number] Apply to U nivers lactate 12 2-08 area(s) ity of % cream 00:00: daily. Medical Branch ammonium 2020-1 Yes [id number] Apply to U nivers lactate 12 2-08 area(s) ity of % cream 00:00: daily. Medical Branch ammonium 2020-1 Yes [id number] Apply to U nivers lactate 12 2-08 area(s) ity of % cream 00:00: daily. Medical Branch ammonium 2020-1 Yes [id number] Apply to U nivers lactate 12 2-08 area(s) ity of % cream 00:00: daily. Medical Branch ammonium 2020-1 Yes [id number] Apply to U nivers lactate 12 2-08 area(s) ity of % cream 00:00: daily. Medical Branch ammonium 2020-1 Yes [id number] Apply to U nivers lactate 12 2-08 area(s) ity of % cream 00:00: daily. Medical Branch ammonium 2020-1 Yes [id number] Apply to U nivers lactate 12 2-08 area(s) ity of % cream 00:00: daily. Medical Branch ammonium 2020-1 Yes [id number] Apply to U nivers lactate 12 2-08 area(s) ity of % cream 00:00: daily. Medical Branch ammonium 2020-1 Yes [id number] Apply to U nivers lactate 12 2-08 area(s) ity of % cream 00:00: daily. Medical Branch ammonium 2020-1 Yes [id number] Apply to U nivers lactate 12 2-08 area(s) ity of % cream 00:00: daily. Medical Branch ammonium 2020-1 Yes [id number] Apply to U nivers lactate 12 2-08 area(s) ity of % cream 00:00: daily. Medical Branch ammonium 2020-1 Yes [id number] Apply to U nivers lactate 12 2-08 area(s) ity of % cream 00:00: daily. Medical Branch ammonium 2020-1 Yes [id number] Apply to U nivers lactate 12 2-08 area(s) ity of % cream 00:00: daily. Medical Branch ammonium 2020-1 Yes [id number] Apply to U nivers lactate 12 2-08 area(s) ity of % cream 00:00: daily. Medical Branch ammonium 2020-1 Yes [id number] Apply to U nivers lactate 12 2-08 area(s) ity of % cream 00:00: daily. Medical Branch ammonium 2020-1 Yes [id number] Apply to U nivers lactate 12 2-08 area(s) ity of % cream 00:00: daily. Medical Branch ammonium 2020-1 Yes [id number] Apply to U nivers lactate 12 2-08 area(s) ity of % cream 00:00: daily. Medical Branch ammonium 2020-1 Yes [id number] Apply to U nivers lactate 12 2-08 area(s) ity of % cream 00:00: daily. Medical Branch ammonium 2020-1 Yes [id number] Apply to U nivers lactate 12 2-08 area(s) ity of % cream 00:00: daily. Medical Branch ammonium 2020-1 Yes [id number] Apply to U nivers lactate 12 2-08 area(s) ity of % cream 00:00: daily. Medical Branch ammonium 2020-1 Yes [id number] Apply to U nivers lactate 12 2-08 area(s) ity of % cream 00:00: daily. Medical Branch ammonium 2020-1 Yes [id number] Apply to U nivers lactate 12 2-08 area(s) ity of % cream 00:00: daily. Medical Branch ammonium 2020-1 Yes [id number] Apply to U nivers lactate 12 2-08 area(s) ity of % cream 00:00: daily. Medical Branch ammonium 2020-1 Yes [id number] Apply to U nivers lactate 12 2-08 area(s) ity of % cream 00:00: daily. Medical Branch ammonium 2020-1 Yes [id number] Apply to U nivers lactate 12 2-08 area(s) ity of % cream 00:00: daily. Medical Branch ammonium 2020-1 Yes [id number] Apply to U nivers lactate 12 2-08 area(s) ity of % cream 00:00: daily. Medical Branch ammonium 2020-1 Yes [id number] Apply to U nivers lactate 12 2-08 area(s) ity of % cream 00:00: daily. Medical Branch ammonium 2020-1 Yes [id number] Apply to U nivers lactate 12 2-08 area(s) ity of % cream 00:00: daily. Medical Branch ammonium 2020-1 Yes [id number] Apply to U nivers lactate 12 2-08 area(s) ity of % cream 00:00: daily. Medical Branch ammonium 2020-1 Yes [id number] Apply to U nivers lactate 12 2-08 area(s) ity of % cream 00:00: daily. Medical Branch ammonium 2020-1 Yes [id number] Apply to U nivers lactate 12 2-08 area(s) ity of % cream 00:00: daily. Medical Branch ammonium 2020-1 Yes [id number] Apply to U nivers lactate 12 2-08 area(s) ity of % cream 00:00: daily. Medical Branch ammonium 2020-1 Yes [id number] Apply to U nivers lactate 12 2-08 area(s) ity of % cream 00:00: daily. Medical Branch ammonium 2020-1 Yes [id number] Apply to U nivers lactate 12 2-08 area(s) ity of % cream 00:00: daily. Medical Branch ammonium 2020-1 Yes [id number] Apply to U nivers lactate 12 2-08 area(s) ity of % cream 00:00: daily. Medical Branch ammonium 2020-1 Yes [id number] Apply to U nivers lactate 12 2-08 area(s) ity of % cream 00:00: daily. Medical Branch ammonium 2020-1 Yes [id number] Apply to U nivers lactate 12 2-08 area(s) ity of % cream 00:00: daily. Medical Branch ammonium 2020-1 Yes [id number] Apply to U nivers lactate 12 2-08 area(s) ity of % cream 00:00: daily. Medical Branch ammonium 2020-1 Yes [id number] Apply to U nivers lactate 12 2-08 area(s) ity of % cream 00:00: daily. Medical Branch ammonium 2020-1 Yes [id number] Apply to U nivers lactate 12 2-08 area(s) ity of % cream 00:00: daily. Medical Branch ammonium 2020-1 Yes [id number] Apply to U nivers lactate 12 2-08 area(s) ity of % cream 00:00: daily. Medical Branch ammonium 2020-1 Yes [id number] Apply to U nivers lactate 12 2-08 area(s) ity of % cream 00:00: daily. Medical Branch ammonium 2020-1 Yes [id number] Apply to U nivers lactate 12 2-08 area(s) ity of % cream 00:00: daily. Medical Branch ammonium 2020-1 Yes [id number] Apply to U nivers lactate 12 2-08 area(s) ity of % cream 00:00: daily. Medical Branch ammonium 2020-1 Yes [id number] Apply to U nivers lactate 12 2-08 area(s) ity of % cream 00:00: daily. Medical Branch ammonium 2020-1 Yes [id number] Apply to U nivers lactate 12 2-08 area(s) ity of % cream 00:00: daily. Medical Branch ammonium 2020-1 Yes [id number] Apply to U nivers lactate 12 2-08 area(s) ity of % cream 00:00: daily. Medical Branch ammonium 2020-1 Yes [id number] Apply to U nivers lactate 12 2-08 area(s) ity of % cream 00:00: daily. Medical Branch ammonium 2020-1 Yes [id number] Apply to U nivers lactate 12 2-08 area(s) ity of % cream 00:00: daily. Medical Branch ammonium 2020-1 Yes [id number] Apply to U nivers lactate 12 2-08 area(s) ity of % cream 00:00: daily. Medical Branch ammonium 2020-1 Yes [id number] Apply to U nivers lactate 12 2-08 area(s) ity of % cream 00:00: daily. Medical Branch ammonium 2020-1 Yes [id number] Apply to U nivers lactate 12 2-08 area(s) ity of % cream 00:00: daily. Medical Branch ammonium 2020-1 Yes [id number] Apply to U nivers lactate 12 2-08 area(s) ity of % cream 00:00: daily. Medical Branch ammonium 2020-1 Yes [id number] Apply to U nivers lactate 12 2-08 area(s) ity of % cream 00:00: daily. Medical Branch ammonium 2020-1 Yes [id number] Apply to U nivers lactate 12 2-08 area(s) ity of % cream 00:00: daily. Medical Branch ammonium 2020-1 Yes [id number] Apply to U nivers lactate 12 2-08 area(s) ity of % cream 00:00: daily. Medical Branch ammonium 2020-1 Yes [id number] Apply to U nivers lactate 12 2-08 area(s) ity of % cream 00:00: daily. Medical Branch ammonium 2020-1 Yes [id number] Apply to U nivers lactate 12 2-08 area(s) ity of % cream 00:00: daily. Medical Branch ammonium 2020-1 Yes [id number] Apply to U nivers lactate 12 2-08 area(s) ity of % cream 00:00: daily. Medical Branch ammonium 2020-1 Yes [id number] Apply to U nivers lactate 12 2-08 area(s) ity of % cream 00:00: daily. Medical Branch ammonium 2020-1 Yes [id number] Apply to U nivers lactate 12 2-08 area(s) ity of % cream 00:00: daily. Medical Branch ammonium 2020-1 Yes [id number] Apply to U nivers lactate 12 2-08 area(s) ity of % cream 00:00: daily. Medical Branch ammonium 2020-1 Yes [id number] Apply to U nivers lactate 12 2-08 area(s) ity of % cream 00:00: daily. Medical Branch ammonium 2020-1 Yes [id number] Apply to U nivers lactate 12 2-08 area(s) ity of % cream 00:00: daily. Medical Branch ammonium 2020-1 Yes [id number] Apply to U nivers lactate 12 2-08 area(s) ity of % cream 00:00: daily. Medical Branch ammonium 2020-1 Yes [id number] Apply to U nivers lactate 12 2-08 area(s) ity of % cream 00:00: daily. Medical Branch ammonium 2020-1 Yes [id number] Apply to U nivers lactate 12 2-08 area(s) ity of % cream 00:00: daily. Medical Branch ammonium 2020-1 Yes [id number] Apply to U nivers lactate 12 2-08 area(s) ity of % cream 00:00: daily. Medical Branch ammonium 2020-1 Yes [id number] Apply to U nivers lactate 12 2-08 area(s) ity of % cream 00:00: daily. Medical Branch ammonium 2020-1 Yes [id number] Apply to U nivers lactate 12 2-08 area(s) ity of % cream 00:00: daily. Medical Branch ammonium 2020-1 Yes [id number] Apply to U nivers lactate 12 2-08 area(s) ity of % cream 00:00: daily. [place] [id number] Medical Branch TRIAMCINOLO 2019-07- No [id number] Apply to [facility] 09-02 area(s) at ity of ACETONIDE-H 00:00: 00:00 bedtime. [place] YDROQUINONE 00 :00 Medical -TRETINOIN Branch 0.025-4-0.0 5 % TOPICAL CREAM TRIAMCINOLO 2019-07- No [id number] Apply to [facility] 09-02 area(s) at ity of ACETONIDE-H 00:00: 00:00 bedtime. [place] YDROQUINONE 00 :00 Medical -TRETINOIN Branch 0.025-4-0.0 5 % TOPICAL CREAM clotrimazol 2019-07- No [id number] Apply to [facility] e-betametha 09-01 area(s) 2 it y of sone cream 00:00: 00:00 (two) [place] 00 :00 times Medical daily. Branch Metformin Metformin 2019-07 No 1{table BID Metformin HCl 1000 MG HCl 1000 MG 0-30 t_with_ HCl 1000 00:00: meals} MG 00 Metformin Metformin 2019-07 No 1{table BID Metformin HCl 1000 MG HCl 1000 MG 0-30 t_with_ HCl 1000 00:00: meals} MG 00 Metformin Metformin 2019-07 No 1{table BID Metformin HCl 1000 MG HCl 1000 MG 0-30 t_with_ HCl 1000 00:00: meals} MG 00 Metformin Metformin 2019-07 No 1{table BID Metformin HCl 1000 MG HCl 1000 MG 0-30 t_with_ HCl 1000 00:00: meals} MG 00 Allopurinol Allopurinol 2019-07- No 1{table TID Allopurino 100 MG 100 MG 0-30 - t} l 100 MG 00:00: 00:00 00 :00 Allopurinol Allopurinol 2019-07- No 1{table TID Allopurino 100 MG 100 MG 0-30 - t} l 100 MG 00:00: 00:00 00 :00 Colchicine Colchicine 2019-07 2020- No TID Colchicine 0.6 MG 0.6 MG 0-30 -28 0.6 MG 00:00: 00:00 00 :00 Colchicine Colchicine 2019-07- No TID Colchicine 0.6 MG 0.6 MG 0-30 12-28 0.6 MG 00:00: 00:00 00 :00 Colchicine Colchicine 2019-07- No TID Colchicine 0.6 MG 0.6 MG 0-30 12-28 0.6 MG 00:00: 00:00 00 :00 Colchicine Colchicine 2019-07- No TID Colchicine 0.6 MG 0.6 MG 0-30 12-28 0.6 MG 00:00: 00:00 00 :00 Diclofenac No [id number] Apply to [facility] Sodium 04-23- area(s) 3 ity of (VOLTAREN) 00:00: 00:00 (three) [place] as 1 % gel 00 :00 times Medical daily as Branch needed for Pain (scale 4-6). Diclofenac [id number] Apply to [facility] Sodium 04-23- area(s) 3 ity of (VOLTAREN) 00:00: 00:00 (three) [place] as 1 % gel 00 :00 times Medical daily as Branch needed for Pain (scale 4-6). ibuprofen TAKE 1 Unive rs 800 mg 04-1810 TABLET BY ity of tablet 00:00: 00:00 MOUTH [place] 00 :00 TWICE A Medical DAY WITH Branch FOOD DURING THE DAY AND AT NIGHT BEFORE BED NEEDED OR PRN latanoprost No [id number] 1[drp] Place 1 [facility] 0.005 % 02-04-17 Drop in ity of ophthalmic 00:00: 00:00 both eyes [place] drops 00 :00 every Medical evening. Branch timolol 0.5 No [id number] 1[drp] Place 1 [facility] % 02-04 09-08 Drop in ity of ophthalmic 00:00: 00:00 both eyes [place] solution 00 :00 every Medical morning. Branch hydroxychlo No [id number] 300mg Take 1.5 [facility] roquine 01-01-05 tablets by ity o f (PLAQUENIL) 00:00: 00:00 mouth [place] 200 mg 00 :00 daily. Medical tablet Branch foLIC acid 2020- No [id number] 1mg Take 1 [facility] 1 mg tablet 01-01 tablet by it y of 00:00: 00:00 mouth [place] 00 :00 daily. Medical Branch methotrexat 2020- No [id number] 12.5mg Take 5 [facility] e 2.5 mg 01-01 tablets by ity of tablet 00:00: 00:00 mouth [place] 00 :00 weekly Medical Branch TRIAMCINOLO 2019- 2020- No Apply to U nivers NE 12-31 area(s) at ity of ACETONIDE-H 00:00: 00:00 bedtime. [place] YDROQUINONE 00 :00 Medical -TRETINOIN Branch 0.025-4-0.0 5 % TOPICAL CREAM hydrocortis 2020- No [id number] Apply to [facility] one 2.5 % 12-27 affected ity o f ointment 00:00: 00:00 area(s) 2 [place] 00 :00 (two) Medical times Branch daily. hydrocortis 2020- No [id number] Apply to [facility] one 2.5 % 12-27 affected ity o f ointment 00:00: 00:00 area(s) 2 [place] as 00 :00 (two) Medical times Branch daily. diphenhydrA 2020-0 Yes [id number] Apply to [facility] MINE-zinc 5-27 area(s) 3 ity o f acetate 00:00: (three) [place] (BENADRYL 00 times Medical ITCH daily as Branch STOPPING) needed for cream Itching. diphenhydrA 2020-0 Yes [id number] Apply to [facility] MINE-zinc 5-27 area(s) 3 ity o f acetate 00:00: (three) [place] (BENADRYL 00 times Medical ITCH daily as Branch STOPPING) needed for cream Itching. diphenhydrA 2020-0 Yes [id number] Apply to [facility] MINE-zinc 5-27 area(s) 3 ity o f acetate 00:00: (three) [place] (BENADRYL 00 times Medical ITCH daily as Branch STOPPING) needed for cream Itching. diphenhydrA 2020-0 Yes [id number] Apply to [facility] MINE-zinc 5-27 area(s) 3 ity o f acetate 00:00: (three) [place] (BENADRYL 00 times Medical ITCH daily as Branch STOPPING) needed for cream Itching. diphenhydrA 2020-0 Yes [id number] [facility] [place] [facility] ity o f acetate 00:00: (three) [place] (BENADRYL 00 times Medical ITCH daily as Branch STOPPING) needed for cream Itching. diphenhydrA 2020-0 Yes [id number] [facility] [place] [facility] area(s[facility] 3 ity o f acetate 00:00: (three) [place] (BENADRYL 00 times Medical ITCH daily as Branch STOPPING) needed for cream Itching. diphenhydrA 2020-0 Yes [id number] [facility] [place] [facility] area(s[facility] 3 ity o f acetate 00:00: (three) [place] (BENADRYL 00 times Medical ITCH daily as Branch STOPPING) needed for cream Itching. diphenhydrA 2020-0 Yes [id number] [facility] to [place] [facility] [facility] area(s) 3 ity o f acetate 00:00: (three) [place] (BENADRYL 00 times Medical ITCH daily as Branch STOPPING) needed for cream Itching. diphenhydrA 2020-0 Yes [id number] Apply to [facility] 5-27 area(s) 3 ity o f acetate 00:00: (three) [place] (BENADRYL 00 times Medical ITCH daily as Branch STOPPING) needed for cream Itching. diphenhydrA 2020-0 Yes [id number] Apply to [facility] 5-27 area(s) 3 ity o f acetate 00:00: (three) [place] (BENADRYL 00 times Medical ITCH daily as Branch STOPPING) needed for cream Itching. diphenhydrA 2020-0 Yes [id number] Apply to [facility] 5-27 area(s) 3 ity o f acetate 00:00: (three) [place] (BENADRYL 00 times Medical ITCH daily as Branch STOPPING) needed for cream Itching. diphenhydrA 2020-0 Yes [id number] Apply to [facility] 5-27 area(s) 3 ity o f acetate 00:00: (three) [place] (BENADRYL 00 times Medical ITCH daily as Branch STOPPING) needed for cream Itching. diphenhydrA 2020-0 Yes [id number] Apply to [facility] 5-27 area(s) 3 ity o f acetate 00:00: (three) [place] (BENADRYL 00 times Medical ITCH daily as Branch STOPPING) needed for cream Itching. diphenhydrA 2020-0 Yes [id number] Apply to [facility] area(s) 3 ity o f acetate 00:00: (three) [place] (BENADRYL 00 times Medical ITCH daily as Branch STOPPING) needed for cream Itching. diphenhydrA 2020-0 Yes [id number] Apply to [facility] 527 area(s) 3 ity o f acetate 00:00: (three) [place] (BENADRYL 00 times Medical ITCH daily as Branch STOPPING) needed for cream Itching. diphenhydrA 2020-0 Yes [id number] Apply to [facility] area(s) 3 ity o f acetate 00:00: (three) [place] (BENADRYL 00 times Medical ITCH daily as Branch STOPPING) needed for cream Itching. diphenhydrA 2020-0 Yes [id number] Apply to [place] [address] area(s) 3 ity o f acetate 00:00: (three) [place] (BENADRYL 00 times Medical ITCH daily as Branch STOPPING) needed for cream Itching. diphenhydrA 2020-0 Yes [id number] Apply to [place] [address] area(s) 3 ity o f acetate 00:00: (three) [place] (BENADRYL 00 times Medical ITCH daily as Branch STOPPING) needed for cream Itching. diphenhydrA 2020-0 Yes [id number] Apply to [place] [address] area(s) 3 ity o f acetate 00:00: (three) [place] (BENADRYL 00 times Medical ITCH daily as Branch STOPPING) needed for cream Itching. diphenhydrA 2020-0 Yes [id number] Apply to [facility] area(s) 3 ity o f acetate 00:00: (three) [place] (BENADRYL 00 times Medical ITCH daily as Branch STOPPING) needed for cream Itching. diphenhydrA 2020-0 Yes [id number] Apply to [facility] 527 area(s) 3 ity o f acetate 00:00: (three) [place] (BENADRYL 00 times Medical ITCH daily as Branch STOPPING) needed for cream Itching. diphenhydrA 2020-0 Yes [id number] Apply to [facility] area(s) 3 ity o f acetate 00:00: (three) [place] (BENADRYL 00 times Medical ITCH daily as Branch STOPPING) needed for cream Itching. diphenhydrA 2020-0 Yes [id number] Apply to [facility] area(s) 3 ity o f acetate 00:00: (three) [place] (BENADRYL 00 times Medical ITCH daily as Branch STOPPING) needed for cream Itching. diphenhydrA 2020-0 Yes [id number] Apply to [facility] area(s) 3 ity o f acetate 00:00: (three) [place] (BENADRYL 00 times Medical ITCH daily as Branch STOPPING) needed for cream Itching. diphenhydrA 2020-0 Yes [id number] Apply to [facility] area(s) 3 ity o f acetate 00:00: (three) [place] (BENADRYL 00 times Medical ITCH daily as Branch STOPPING) needed for cream Itching. diphenhydrA 2020-0 Yes [id number] Apply to [facility] area(s) 3 ity o f acetate 00:00: (three) [place] (BENADRYL 00 times Medical ITCH daily as Branch STOPPING) needed for cream Itching. diphenhydrA 2020-0 Yes [id number] Apply to [facility] area(s) 3 ity o f acetate 00:00: (three) [place] (BENADRYL 00 times Medical ITCH daily as Branch STOPPING) needed for cream Itching. diphenhydrA 2020-0 Yes [id number] Apply to [place] [facility] area(s) 3 ity o f acetate 00:00: (three) [place] (BENADRYL 00 times Medical ITCH daily as Branch STOPPING) needed for cream Itching. diphenhydrA 2020-0 Yes [id number] Apply to [facility] area(s) 3 ity o f acetate 00:00: (three) [place] (BENADRYL 00 times Medical ITCH daily as Branch STOPPING) needed for cream Itching. diphenhydrA 2020-0 Yes [id number] Apply to [place] [facility] area(s) 3 ity o f acetate 00:00: (three) [place] (BENADRYL 00 times Medical ITCH daily as Branch STOPPING) needed for cream Itching. diphenhydrA 2020-0 Yes [id number] Apply to [facility] 5-27 area(s) 3 ity o f acetate 00:00: (three) [place] (BENADRYL 00 times Medical ITCH daily as Branch STOPPING) needed for cream Itching. diphenhydrA 2020-0 Yes [id number] Apply to [facility] 5-27 area(s) 3 ity o f acetate 00:00: (three) [place] (BENADRYL 00 times Medical ITCH daily as Branch STOPPING) needed for cream Itching. diphenhydrA 2020-0 Yes [id number] Apply to [facility] 5-27 area(s) 3 ity o f acetate 00:00: (three) [place] (BENADRYL 00 times Medical ITCH daily as Branch STOPPING) needed for cream Itching. diphenhydrA 2020-0 Yes [id number] Apply to [facility] 5-27 area(s) 3 ity o f acetate 00:00: (three) [place] (BENADRYL 00 times Medical ITCH daily as Branch STOPPING) needed for cream Itching. diphenhydrA 2020-0 Yes [id number] Apply to [facility] 5-27 area(s) 3 ity o f acetate 00:00: (three) [place] (BENADRYL 00 times Medical ITCH daily as Branch STOPPING) needed for cream Itching. diphenhydrA 2020-0 Yes [id number] Apply to [facility] 5-27 area(s) 3 ity o f acetate 00:00: (three) [place] (BENADRYL 00 times Medical ITCH daily as Branch STOPPING) needed for cream Itching. diphenhydrA 2020-0 Yes [id number] Apply to [facility] 5-27 area(s) 3 ity o f acetate 00:00: (three) [place] (BENADRYL 00 times Medical ITCH daily as Branch STOPPING) needed for cream Itching. diphenhydrA 2020-0 Yes [id number] Apply to [facility] 5-27 area(s) 3 ity o f acetate 00:00: (three) [place] (BENADRYL 00 times Medical ITCH daily as Branch STOPPING) needed for cream Itching. diphenhydrA 2020-0 Yes [id number] Apply to [facility] 5-27 area(s) 3 ity o f acetate 00:00: (three) [place] (BENADRYL 00 times Medical ITCH daily as Branch STOPPING) needed for cream Itching. diphenhydrA 2020-0 Yes [id number] Apply to [facility] 5-27 area(s) 3 ity o f acetate 00:00: (three) [place] (BENADRYL 00 times Medical ITCH daily as Branch STOPPING) needed for cream Itching. diphenhydrA 2020-0 Yes [id number] Apply to [facility] 5-27 area(s) 3 ity o f acetate 00:00: (three) [place] (BENADRYL 00 times Medical ITCH daily as Branch STOPPING) needed for cream Itching. diphenhydrA 2020-0 Yes [id number] Apply to [facility] 5-27 area(s) 3 ity o f acetate 00:00: (three) [place] (BENADRYL 00 times Medical ITCH daily as Branch STOPPING) needed for cream Itching. diphenhydrA 2020-0 Yes [id number] Apply to [facility] 27 area(s) 3 ity o f acetate 00:00: (three) [place] (BENADRYL 00 times Medical ITCH daily as Branch STOPPING) needed for cream Itching. diphenhydrA 2020-0 Yes [id number] Apply to [facility] 527 area(s) 3 ity o f acetate 00:00: (three) [place] (BENADRYL 00 times Medical ITCH daily as Branch STOPPING) needed for cream Itching. diphenhydrA 2020-0 Yes [id number] Apply to [facility] 527 area(s) 3 ity o f acetate 00:00: (three) [place] (BENADRYL 00 times Medical ITCH daily as Branch STOPPING) needed for cream Itching. diphenhydrA 2020-0 Yes [id number] Apply to [facility] 5-27 area(s) 3 ity o f acetate 00:00: (three) [place] (BENADRYL 00 times Medical ITCH daily as Branch STOPPING) needed for cream Itching. diphenhydrA 2020-0 Yes [id number] Apply to [facility] 5-27 area(s) 3 ity o f acetate 00:00: (three) [place] (BENADRYL 00 times Medical ITCH daily as Branch STOPPING) needed for cream Itching. diphenhydrA 2020-0 Yes [id number] Apply to [facility] area(s) 3 ity o f acetate 00:00: (three) [place] (BENADRYL 00 times Medical ITCH daily as Branch STOPPING) needed for cream Itching. diphenhydrA 2020-0 Yes [id number] Apply to [facility] area(s) 3 ity o f acetate 00:00: (three) [place] (BENADRYL 00 times Medical ITCH daily as Branch STOPPING) needed for cream Itching. diphenhydrA 2020-0 Yes [id number] Apply to [facility] area(s) 3 ity o f acetate 00:00: (three) [place] (BENADRYL 00 times Medical ITCH daily as Branch STOPPING) needed for cream Itching. diphenhydrA 2020-0 Yes [id number] Apply to [facility] area(s) 3 ity o f acetate 00:00: (three) [place] (BENADRYL 00 times Medical ITCH daily as Branch STOPPING) needed for cream Itching. diphenhydrA 2020-0 Yes [id number] Apply to [facility] area(s) 3 ity o f acetate 00:00: (three) [place] (BENADRYL 00 times Medical ITCH daily as Branch STOPPING) needed for cream Itching. diphenhydrA 2020-0 Yes [id number] Apply to [place] [address] area(s) 3 ity o f acetate 00:00: (three) [place] (BENADRYL 00 times Medical ITCH daily as Branch STOPPING) needed for cream Itching. diphenhydrA 2020-0 Yes [id number] Apply to [facility] area(s) 3 ity o f acetate 00:00: (three) [place] (BENADRYL 00 times Medical ITCH daily as Branch STOPPING) needed for cream Itching. diphenhydrA 2020-0 Yes [id number] Apply to [facility] area(s) 3 ity o f acetate 00:00: (three) [place] (BENADRYL 00 times Medical ITCH daily as Branch STOPPING) needed for cream Itching. diphenhydrA 2020-0 Yes [id number] Apply to [facility] area(s) 3 ity o f acetate 00:00: (three) [place] (BENADRYL 00 times Medical ITCH daily as Branch STOPPING) needed for cream Itching. diphenhydrA 2020-0 Yes [id number] Apply to [facility] 5-27 area(s) 3 ity o f acetate 00:00: (three) [place] (BENADRYL 00 times Medical ITCH daily as Branch STOPPING) needed for cream Itching. diphenhydrA 2020-0 Yes [id number] Apply to [facility] 5-27 area(s) 3 ity o f acetate 00:00: (three) [place] (BENADRYL 00 times Medical ITCH daily as Branch STOPPING) needed for cream Itching. diphenhydrA 2020-0 Yes [id number] Apply to [facility] 5-27 area(s) 3 ity o f acetate 00:00: (three) [place] (BENADRYL 00 times Medical ITCH daily as Branch STOPPING) needed for cream Itching. diphenhydrA 2020-0 Yes [id number] Apply to [facility] 5-27 area(s) 3 ity o f acetate 00:00: (three) [place] (BENADRYL 00 times Medical ITCH daily as Branch STOPPING) needed for cream Itching. diphenhydrA 2020-0 Yes [id number] Apply to [facility] 5-27 area(s) 3 ity o f acetate 00:00: (three) [place] (BENADRYL 00 times Medical ITCH daily as Branch STOPPING) needed for cream Itching. diphenhydrA 2020-0 Yes [id number] Apply to [facility] 5-27 area(s) 3 ity o f acetate 00:00: (three) [place] (BENADRYL 00 times Medical ITCH daily as Branch STOPPING) needed for cream Itching. diphenhydrA 2020-0 Yes [id number] Apply to [facility] 5-27 area(s) 3 ity o f acetate 00:00: (three) [place] (BENADRYL 00 times Medical ITCH daily as Branch STOPPING) needed for cream Itching. diphenhydrA 2020-0 Yes [id number] Apply to [facility] 5-27 area(s) 3 ity o f acetate 00:00: (three) [place] (BENADRYL 00 times Medical ITCH daily as Branch STOPPING) needed for cream Itching. diphenhydrA 2020-0 Yes [id number] Apply to [facility] area(s) 3 ity o f acetate 00:00: (three) [place] (BENADRYL 00 times Medical ITCH daily as Branch STOPPING) needed for cream Itching. diphenhydrA 2020-0 Yes [id number] Apply to [place] [facility] 527 area(s) 3 ity o f acetate 00:00: (three) [place] (BENADRYL 00 times Medical ITCH daily as Branch STOPPING) needed for cream Itching. diphenhydrA 2020-0 Yes [id number] Apply to [place] [facility] area(s) 3 ity o f acetate 00:00: (three) [place] (BENADRYL 00 times Medical ITCH daily as Branch STOPPING) needed for cream Itching. diphenhydrA 2020-0 Yes [id number] Apply to [place] [facility] area(s) 3 ity o f acetate 00:00: (three) [place] (BENADRYL 00 times Medical ITCH daily as Branch STOPPING) needed for cream Itching. diphenhydrA 2020-0 Yes [id number] Apply to [facility] area(s) 3 ity o f acetate 00:00: (three) [place] (BENADRYL 00 times Medical ITCH daily as Branch STOPPING) needed for cream Itching. diphenhydrA 2020-0 Yes [id number] Apply to [facility] area(s) 3 ity o f acetate 00:00: (three) [place] (BENADRYL 00 times Medical ITCH daily as Branch STOPPING) needed for cream Itching. diphenhydrA 2020-0 Yes [id number] Apply to [place] [facility] area(s) 3 ity o f acetate 00:00: (three) [place] (BENADRYL 00 times Medical ITCH daily as Branch STOPPING) needed for cream Itching. diphenhydrA 2020-0 Yes [id number] Apply to [place] [facility] area(s) 3 ity o f acetate 00:00: (three) [place] (BENADRYL 00 times Medical ITCH daily as Branch STOPPING) needed for cream Itching. diphenhydrA 2020-0 Yes [id number] Apply to [place] [facility] area(s) 3 ity o f acetate 00:00: (three) [place] (BENADRYL 00 times Medical ITCH daily as Branch STOPPING) needed for cream Itching. diphenhydrA 2020-0 Yes [id number] Apply to [place] [facility] 5-27 area(s) 3 ity o f acetate 00:00: (three) [place] (BENADRYL 00 times Medical ITCH daily as Branch STOPPING) needed for cream Itching. diphenhydrA 2020-0 Yes [id number] Apply to [facility] 5-27 area(s) 3 ity o f acetate 00:00: (three) [place] (BENADRYL 00 times Medical ITCH daily as Branch STOPPING) needed for cream Itching. diphenhydrA 2020-0 Yes [id number] Apply to [facility] 5-27 area(s) 3 ity o f acetate 00:00: (three) [place] (BENADRYL 00 times Medical ITCH daily as Branch STOPPING) needed for cream Itching. diphenhydrA 2020-0 Yes [id number] Apply to [facility] 5-27 area(s) 3 ity o f acetate 00:00: (three) [place] (BENADRYL 00 times Medical ITCH daily as Branch STOPPING) needed for cream Itching. diphenhydrA 2020-0 Yes [id number] Apply to [place] [facility] 5-27 area(s) 3 ity o f acetate 00:00: (three) [place] (BENADRYL 00 times Medical ITCH daily as Branch STOPPING) needed for cream Itching. diphenhydrA 2020-0 Yes [id number] Apply to [place] [facility] 5-27 area(s) 3 ity o f acetate 00:00: (three) [place] (BENADRYL 00 times Medical ITCH daily as Branch STOPPING) needed for cream Itching. diphenhydrA 2020-0 Yes [id number] Apply to [place] [facility] 5-27 area(s) 3 ity o f acetate 00:00: (three) [place] (BENADRYL 00 times Medical ITCH daily as Branch STOPPING) needed for cream Itching. diphenhydrA 2020-0 Yes [id number] Apply to [facility] 5-27 area(s) 3 ity o f acetate 00:00: (three) [place] (BENADRYL 00 times Medical ITCH daily as Branch STOPPING) needed for cream Itching. diphenhydrA 2020-0 Yes [id number] Apply to [facility] 5-27 area(s) 3 ity o f acetate 00:00: (three) [place] (BENADRYL 00 times Medical ITCH daily as Branch STOPPING) needed for cream Itching. diphenhydrA 2020-0 Yes [id number] Apply to [place] [address] area(s) 3 ity o f acetate 00:00: (three) [place] (BENADRYL 00 times Medical ITCH daily as Branch STOPPING) needed for cream Itching. diphenhydrA 2020-0 Yes [id number] Apply to [place] [address] area(s) 3 ity o f acetate 00:00: (three) [place] (BENADRYL 00 times Medical ITCH daily as Branch STOPPING) needed for cream Itching. diphenhydrA 2020-0 Yes [id number] Apply to [place] [address] area(s) 3 ity o f acetate 00:00: (three) [place] (BENADRYL 00 times Medical ITCH daily as Branch STOPPING) needed for cream Itching. diphenhydrA 2020-0 Yes [id number] Apply to [place] [address] area(s) 3 ity o f acetate 00:00: (three) [place] (BENADRYL 00 times Medical ITCH daily as Branch STOPPING) needed for cream Itching. diphenhydrA 2020-0 Yes [id number] Apply to [place] [address] area(s) 3 ity o f acetate 00:00: (three) [place] (BENADRYL 00 times Medical ITCH daily as Branch STOPPING) needed for cream Itching. diphenhydrA 2020-0 Yes [id number] Apply to [place] [address] area(s) 3 ity o f acetate 00:00: (three) [place] (BENADRYL 00 times Medical ITCH daily as Branch STOPPING) needed for cream Itching. diphenhydrA 2020-0 Yes [id number] Apply to [facility] area(s) 3 ity o f acetate 00:00: (three) [place] (BENADRYL 00 times Medical ITCH daily as Branch STOPPING) needed for cream Itching. diphenhydrA 2020-0 Yes [id number] Apply to [facility] area(s) 3 ity o f acetate 00:00: (three) [place] (BENADRYL 00 times Medical ITCH daily as Branch STOPPING) needed for cream Itching. diphenhydrA 2020-0 Yes [id number] Apply to [facility] area(s) 3 ity o f acetate 00:00: (three) [place] (BENADRYL 00 times Medical ITCH daily as Branch STOPPING) needed for cream Itching. diphenhydrA 2020-0 Yes [id number] Apply to [facility] area(s) 3 ity o f acetate 00:00: (three) [place] (BENADRYL 00 times Medical ITCH daily as Branch STOPPING) needed for cream Itching. diphenhydrA 2020-0 Yes [id number] Apply to [facility] area(s) 3 ity o f acetate 00:00: (three) [place] (BENADRYL 00 times Medical ITCH daily as Branch STOPPING) needed for cream Itching. diphenhydrA 2020-0 Yes [id number] Apply to [facility] area(s) 3 ity o f acetate 00:00: (three) [place] (BENADRYL 00 times Medical ITCH daily as Branch STOPPING) needed for cream Itching. diphenhydrA 2020-0 Yes [id number] Apply to [place] [facility] area(s) 3 ity o f acetate 00:00: (three) [place] (BENADRYL 00 times Medical ITCH daily as Branch STOPPING) needed for cream Itching. diphenhydrA 2020-0 Yes [id number] Apply to [facility] area(s) 3 ity o f acetate 00:00: (three) [place] (BENADRYL 00 times Medical ITCH daily as Branch STOPPING) needed for cream Itching. diphenhydrA 2020-0 Yes [id number] Apply to [facility] area(s) 3 ity o f acetate 00:00: (three) [place] (BENADRYL 00 times Medical ITCH daily as Branch STOPPING) needed for cream Itching. diphenhydrA 2020-0 Yes [id number] Apply to [facility] area(s) 3 ity o f acetate 00:00: (three) [place] (BENADRYL 00 times Medical ITCH daily as Branch STOPPING) needed for cream Itching. diphenhydrA 2020-0 Yes [id number] Apply to [facility] area(s) 3 ity o f acetate 00:00: (three) [place] (BENADRYL 00 times Medical ITCH daily as Branch STOPPING) needed for cream Itching. diphenhydrA 2020-0 Yes [id number] Apply to [facility] 5-27 area(s) 3 ity o f acetate 00:00: (three) [place] (BENADRYL 00 times Medical ITCH daily as Branch STOPPING) needed for cream Itching. diphenhydrA 2020-0 Yes [id number] Apply to [facility] 5-27 area(s) 3 ity o f acetate 00:00: (three) [place] (BENADRYL 00 times Medical ITCH daily as Branch STOPPING) needed for cream Itching. diphenhydrA 2020-0 Yes [id number] Apply to [facility] 527 area(s) 3 ity o f acetate 00:00: (three) [place] (BENADRYL 00 times Medical ITCH daily as Branch STOPPING) needed for cream Itching. diphenhydrA 2020-0 Yes [id number] Apply to [facility] 527 area(s) 3 ity o f acetate 00:00: (three) [place] (BENADRYL 00 times Medical ITCH daily as Branch STOPPING) needed for cream Itching. diphenhydrA 2020-0 Yes [id number] Apply to [facility] 527 area(s) 3 ity o f acetate 00:00: (three) [place] (BENADRYL 00 times Medical ITCH daily as Branch STOPPING) needed for cream Itching. diphenhydrA 2020-0 Yes [id number] Apply to [facility] 527 area(s) 3 ity o f acetate 00:00: (three) [place] (BENADRYL 00 times Medical ITCH daily as Branch STOPPING) needed for cream Itching. metFORMIN 2019-0 2020- No [id number] 500mg Take 1 [facility] 500 mg 24 12-11- tablet by ity of hr tablet 00:00: 00:00 mouth [place] 00 :00 daily with Medical breakfast. Branch metFORMIN 2019-0 2020- No [id number] 500mg Take 1 [facility] 500 mg 24 5-11 10- tablet by ity of hr tablet 00:00: 00:00 mouth [place] 00 :00 daily with Medical breakfast. Branch hydrocortis 2020-0 Yes [id number] Apply to [facility] one 2.5 % 1-02 affected ity of cream 00:00: area(s) 2 [place] 00 (two) Medical times Branch daily. Apply to itchy areas on arms, legs, trunk twice daily as needed hydrocortis 2020-0 Yes [id number] Apply to [facility] one 2.5 % 1-02 affected ity of cream 00:00: area(s) 2 [place] (two) Medical times Branch daily. Apply to itchy areas on arms, legs, trunk twice daily as needed hydrocortis 2020-0 Yes [id number] Apply to [facility] one 2.5 % 1-02 affected ity of cream 00:00: area(s) 2 [place] (two) Medical times Branch daily. Apply to itchy areas on arms, legs, trunk twice daily as needed hydrocortis 2020-0 Yes [id number] Apply to [facility] one 2.5 % 1-02 affected ity of cream 00:00: area(s) 2 [place] (two) Medical times Branch daily. Apply to itchy areas on arms, legs, trunk twice daily as needed hydrocortis 2020-0 Yes [id number] [facility] to [facility] 2.5 % 1-02 affected ity of cream 00:00: area(s) 2 [place] (two) Medical times Branch daily. Apply to itchy areas on arms, legs, trunk twice daily as needed hydrocortis 2020-0 Yes [id number] Apply to [facility] 2.5 % 1-02 affected ity of cream 00:00: area(s) 2 [place] (two) Medical times Branch daily. Apply to itchy areas on arms, legs, trunk twice daily as needed hydrocortis 2020-0 Yes [id number] Apply to [facility] 2.5 % 1-02 affected ity of cream 00:00: area(s) 2 [place] (two) Medical times Branch daily. Apply to itchy areas on arms, legs, trunk twice daily as needed hydrocortis 2020-0 Yes [id number] Apply to [facility] 2.5 % 1-02 affected ity of cream 00:00: area(s) 2 [place] (two) Medical times Branch daily. Apply to itchy areas on arms, legs, trunk twice daily as needed hydrocortis 2020-0 Yes [id number] Apply to [facility] 2.5 % 1-02 affected ity of cream 00:00: area(s) 2 [place] [address] (two) Medical times Branch daily. Apply to itchy areas on arms, legs, trunk twice daily as needed hydrocortis 2020-0 Yes [id number] Apply to [facility] 2.5 % 1-02 affected ity of cream 00:00: area(s) 2 [place] 00 (two) Medical times Branch daily. Apply to itchy areas on arms, legs, trunk twice daily as needed hydrocortis 2020-0 Yes [id number] Apply to [facility] 2.5 % 1-02 affected ity of cream 00:00: area(s) 2 [place] 00 (two) Medical times Branch daily. Apply to itchy areas on arms, legs, trunk twice daily as needed hydrocortis 2020-0 Yes [id number] Apply to [facility] 2.5 % 1-02 affected ity of cream 00:00: area(s) 2 [place] (two) Medical times Branch daily. Apply to itchy areas on arms, legs, trunk twice daily as needed hydrocortis 2020-0 Yes [id number] Apply to [facility] 2.5 % 1-02 affected ity of cream 00:00: area(s) 2 [place] (two) Medical times Branch daily. Apply to itchy areas on arms, legs, trunk twice daily as needed hydrocortis 2020-0 Yes [id number] Apply to [facility] 2.5 % 1-02 affected ity of cream 00:00: area(s) 2 [place] 00 (two) Medical times Branch daily. Apply to itchy areas on arms, legs, trunk twice daily as needed hydrocortis 2020-0 Yes [id number] Apply to [facility] 2.5 % 1-02 affected ity of cream 00:00: area(s) 2 [place] 00 (two) Medical times Branch daily. Apply to itchy areas on arms, legs, trunk twice daily as needed hydrocortis 2020-0 Yes [id number] Apply to [facility] 2.5 % 1-02 affected ity of cream 00:00: area(s) 2 [place] 00 (two) Medical times Branch daily. Apply to itchy areas on arms, legs, trunk twice daily as needed hydrocortis 2020-0 Yes [id number] Apply to [facility] 2.5 % 1-02 affected ity of cream 00:00: area(s) 2 [place] 00 (two) Medical times Branch daily. Apply to itchy areas on arms, legs, trunk twice daily as needed hydrocortis 2020-0 Yes [id number] Apply to [facility] 2.5 % 1-02 affected ity of cream 00:00: area(s) 2 [place] 00 (two) Medical times Branch daily. Apply to itchy areas on arms, legs, trunk twice daily as needed hydrocortis 2020-0 Yes [id number] Apply to [facility] 2.5 % 1-02 affected ity of cream 00:00: area(s) 2 [place] 00 (two) Medical times Branch daily. Apply to itchy areas on arms, legs, trunk twice daily as needed hydrocortis 2020-0 Yes [id number] Apply to [facility] 2.5 % 1-02 affected ity of cream 00:00: area(s) 2 [place] 00 (two) Medical times Branch daily. Apply to itchy areas on arms, legs, trunk twice daily as needed hydrocortis 2020-0 Yes [id number] Apply to [facility] 2.5 % 1-02 affected ity of cream 00:00: area(s) 2 [place] 00 (two) Medical times Branch daily. Apply to itchy areas on arms, legs, trunk twice daily as needed hydrocortis 2020-0 Yes [id number] Apply to [facility] 2.5 % 1-02 affected ity of cream 00:00: area(s) 2 [place] 00 (two) Medical times Branch daily. Apply to itchy areas on arms, legs, trunk twice daily as needed hydrocortis 2020-0 Yes [id number] Apply to [facility] 2.5 % 1-02 affected ity of cream 00:00: area(s) 2 [place] 00 (two) Medical times Branch daily. Apply to itchy areas on arms, legs, trunk twice daily as needed hydrocortis 2020-0 Yes [id number] Apply to [facility] 2.5 % 1-02 affected ity of cream 00:00: area(s) 2 [place] 00 (two) Medical times Branch daily. Apply to itchy areas on arms, legs, trunk twice daily as needed hydrocortis 2020-0 Yes [id number] Apply to [facility] 2.5 % 1-02 affected ity of cream 00:00: area(s) 2 [place] 00 (two) Medical times Branch daily. Apply to itchy areas on arms, legs, trunk twice daily as needed hydrocortis 2020-0 Yes [id number] Apply to [facility] 2.5 % 1-02 affected ity of cream 00:00: area(s) 2 [place] [address] (two) Medical times Branch daily. Apply to itchy areas on arms, legs, trunk twice daily as needed hydrocortis 2020-0 Yes [id number] Apply to [facility] 2.5 % 1-02 affected ity of cream 00:00: area(s) 2 [place] (two) Medical times Branch daily. Apply to itchy areas on arms, legs, trunk twice daily as needed hydrocortis 2020-0 Yes [id number] Apply to [facility] 2.5 % 1-02 affected ity of cream 00:00: area(s) 2 [place] (two) Medical times Branch daily. Apply to itchy areas on arms, legs, trunk twice daily as needed hydrocortis 2020-0 Yes [id number] Apply to [facility] 2.5 % 1-02 affected ity of cream 00:00: area(s) 2 [place] (two) Medical times Branch daily. Apply to itchy areas on arms, legs, trunk twice daily as needed hydrocortis 2020-0 Yes [id number] Apply to [facility] 2.5 % 1-02 affected ity of cream 00:00: area(s) 2 [place] (two) Medical times Branch daily. Apply to itchy areas on arms, legs, trunk twice daily as needed hydrocortis 2020-0 Yes [id number] Apply to [facility] 2.5 % 1-02 affected ity of cream 00:00: area(s) 2 [place] (two) Medical times Branch daily. Apply to itchy areas on arms, legs, trunk twice daily as needed hydrocortis 2020-0 Yes [id number] Apply to [facility] 2.5 % 1-02 affected ity of cream 00:00: area(s) 2 [place] (two) Medical times Branch daily. Apply to itchy areas on arms, legs, trunk twice daily as needed hydrocortis 2020-0 Yes [id number] Apply to [facility] 2.5 % 1-02 affected ity of cream 00:00: area(s) 2 [place] (two) Medical times Branch daily. Apply to itchy areas on arms, legs, trunk twice daily as needed hydrocortis 2020-0 Yes [id number] Apply to [facility] 2.5 % 1-02 affected ity of cream 00:00: area(s) 2 [place] [address] (two) Medical times Branch daily. Apply to itchy areas on arms, legs, trunk twice daily as needed hydrocortis 2020-0 Yes [id number] Apply to [facility] 2.5 % 1-02 affected ity of cream 00:00: area(s) 2 [place] 00 (two) Medical times Branch daily. Apply to itchy areas on arms, legs, trunk twice daily as needed hydrocortis 2020-0 Yes [id number] Apply to [facility] 2.5 % 1-02 affected ity of cream 00:00: area(s) 2 [place] 00 (two) Medical times Branch daily. Apply to itchy areas on arms, legs, trunk twice daily as needed hydrocortis 2020-0 Yes [id number] Apply to [facility] 2.5 % 1-02 affected ity of cream 00:00: area(s) 2 [place] (two) Medical times Branch daily. Apply to itchy areas on arms, legs, trunk twice daily as needed hydrocortis 2020-0 Yes [id number] Apply to [facility] 2.5 % 1-02 affected ity of cream 00:00: area(s) 2 [place] (two) Medical times Branch daily. Apply to itchy areas on arms, legs, trunk twice daily as needed hydrocortis 2020-0 Yes [id number] Apply to [facility] 2.5 % 1-02 affected ity of cream 00:00: area(s) 2 [place] 00 (two) Medical times Branch daily. Apply to itchy areas on arms, legs, trunk twice daily as needed hydrocortis 2020-0 Yes [id number] Apply to [facility] 2.5 % 1-02 affected ity of cream 00:00: area(s) 2 [place] 00 (two) Medical times Branch daily. Apply to itchy areas on arms, legs, trunk twice daily as needed hydrocortis 2020-0 Yes [id number] Apply to [facility] 2.5 % 1-02 affected ity of cream 00:00: area(s) 2 [place] 00 (two) Medical times Branch daily. Apply to itchy areas on arms, legs, trunk twice daily as needed hydrocortis 2020-0 Yes [id number] Apply to [facility] 2.5 % 1-02 affected ity of cream 00:00: area(s) 2 [place] 00 (two) Medical times Branch daily. Apply to itchy areas on arms, legs, trunk twice daily as needed hydrocortis 2020-0 Yes [id number] Apply to [facility] 2.5 % 1-02 affected ity of cream 00:00: area(s) 2 [place] 00 (two) Medical times Branch daily. Apply to itchy areas on arms, legs, trunk twice daily as needed hydrocortis 2020-0 Yes [id number] Apply to [facility] 2.5 % 1-02 affected ity of cream 00:00: area(s) 2 [place] 00 (two) Medical times Branch daily. Apply to itchy areas on arms, legs, trunk twice daily as needed hydrocortis 2020-0 Yes [id number] Apply to [facility] 2.5 % 1-02 affected ity of cream 00:00: area(s) 2 [place] 00 (two) Medical times Branch daily. Apply to itchy areas on arms, legs, trunk twice daily as needed hydrocortis 2020-0 Yes [id number] Apply to [facility] 2.5 % 1-02 affected ity of cream 00:00: area(s) 2 [place] 00 (two) Medical times Branch daily. Apply to itchy areas on arms, legs, trunk twice daily as needed hydrocortis 2020-0 Yes [id number] Apply to [facility] 2.5 % 1-02 affected ity of cream 00:00: area(s) 2 [place] 00 (two) Medical times Branch daily. Apply to itchy areas on arms, legs, trunk twice daily as needed hydrocortis 2020-0 Yes [id number] Apply to [facility] 2.5 % 1-02 affected ity of cream 00:00: area(s) 2 [place] 00 (two) Medical times Branch daily. Apply to itchy areas on arms, legs, trunk twice daily as needed hydrocortis 2020-0 Yes [id number] Apply to [facility] 2.5 % 1-02 affected ity of cream 00:00: area(s) 2 [place] 00 (two) Medical times Branch daily. Apply to itchy areas on arms, legs, trunk twice daily as needed hydrocortis 2020-0 Yes [id number] Apply to [facility] 2.5 % 1-02 affected ity of cream 00:00: area(s) 2 [place] 00 (two) Medical times Branch daily. Apply to itchy areas on arms, legs, trunk twice daily as needed hydrocortis 2020-0 Yes [id number] Apply to [facility] 2.5 % 1-02 affected ity of cream 00:00: area(s) 2 [place] [address] (two) Medical times Branch daily. Apply to itchy areas on arms, legs, trunk twice daily as needed hydrocortis 2020-0 Yes [id number] Apply to [facility] 2.5 % 1-02 affected ity of cream 00:00: area(s) 2 [place] (two) Medical times Branch daily. Apply to itchy areas on arms, legs, trunk twice daily as needed hydrocortis 2020-0 Yes [id number] Apply to [facility] 2.5 % 1-02 affected ity of cream 00:00: area(s) 2 [place] (two) Medical times Branch daily. Apply to itchy areas on arms, legs, trunk twice daily as needed hydrocortis 2020-0 Yes [id number] Apply to [facility] 2.5 % 1-02 affected ity of cream 00:00: area(s) 2 [place] (two) Medical times Branch daily. Apply to itchy areas on arms, legs, trunk twice daily as needed hydrocortis 2020-0 Yes [id number] Apply to [facility] 2.5 % 1-02 affected ity of cream 00:00: area(s) 2 [place] (two) Medical times Branch daily. Apply to itchy areas on arms, legs, trunk twice daily as needed hydrocortis 2020-0 Yes [id number] Apply to [facility] 2.5 % 1-02 affected ity of cream 00:00: area(s) 2 [place] (two) Medical times Branch daily. Apply to itchy areas on arms, legs, trunk twice daily as needed hydrocortis 2020-0 Yes [id number] Apply to [facility] 2.5 % 1-02 affected ity of cream 00:00: area(s) 2 [place] (two) Medical times Branch daily. Apply to itchy areas on arms, legs, trunk twice daily as needed hydrocortis 2020-0 Yes [id number] Apply to [facility] 2.5 % 1-02 affected ity of cream 00:00: area(s) 2 [place] (two) Medical times Branch daily. Apply to itchy areas on arms, legs, trunk twice daily as needed hydrocortis 2020-0 Yes [id number] Apply to [facility] 2.5 % 1-02 affected ity of cream 00:00: area(s) 2 [place] [address] (two) Medical times Branch daily. Apply to itchy areas on arms, legs, trunk twice daily as needed hydrocortis 2020-0 Yes [id number] Apply to [facility] 2.5 % 1-02 affected ity of cream 00:00: area(s) 2 [place] 00 (two) Medical times Branch daily. Apply to itchy areas on arms, legs, trunk twice daily as needed hydrocortis 2020-0 Yes [id number] Apply to [facility] 2.5 % 1-02 affected ity of cream 00:00: area(s) 2 [place] 00 (two) Medical times Branch daily. Apply to itchy areas on arms, legs, trunk twice daily as needed hydrocortis 2020-0 Yes [id number] Apply to [facility] 2.5 % 1-02 affected ity of cream 00:00: area(s) 2 [place] (two) Medical times Branch daily. Apply to itchy areas on arms, legs, trunk twice daily as needed hydrocortis 2020-0 Yes [id number] Apply to [facility] 2.5 % 1-02 affected ity of cream 00:00: area(s) 2 [place] (two) Medical times Branch daily. Apply to itchy areas on arms, legs, trunk twice daily as needed hydrocortis 2020-0 Yes [id number] Apply to [facility] 2.5 % 1-02 affected ity of cream 00:00: area(s) 2 [place] 00 (two) Medical times Branch daily. Apply to itchy areas on arms, legs, trunk twice daily as needed hydrocortis 2020-0 Yes [id number] Apply to [facility] 2.5 % 1-02 affected ity of cream 00:00: area(s) 2 [place] 00 (two) Medical times Branch daily. Apply to itchy areas on arms, legs, trunk twice daily as needed hydrocortis 2020-0 Yes [id number] Apply to [facility] 2.5 % 1-02 affected ity of cream 00:00: area(s) 2 [place] 00 (two) Medical times Branch daily. Apply to itchy areas on arms, legs, trunk twice daily as needed hydrocortis 2020-0 Yes [id number] Apply to [facility] 2.5 % 1-02 affected ity of cream 00:00: area(s) 2 [place] 00 (two) Medical times Branch daily. Apply to itchy areas on arms, legs, trunk twice daily as needed hydrocortis 2020-0 Yes [id number] Apply to [facility] 2.5 % 1-02 affected ity of cream 00:00: area(s) 2 [place] 00 (two) Medical times Branch daily. Apply to itchy areas on arms, legs, trunk twice daily as needed hydrocortis 2020-0 Yes [id number] Apply to [facility] 2.5 % 1-02 affected ity of cream 00:00: area(s) 2 [place] 00 (two) Medical times Branch daily. Apply to itchy areas on arms, legs, trunk twice daily as needed hydrocortis 2020-0 Yes [id number] Apply to [facility] 2.5 % 1-02 affected ity of cream 00:00: area(s) 2 [place] 00 (two) Medical times Branch daily. Apply to itchy areas on arms, legs, trunk twice daily as needed hydrocortis 2020-0 Yes [id number] Apply to [facility] 2.5 % 1-02 affected ity of cream 00:00: area(s) 2 [place] 00 (two) Medical times Branch daily. Apply to itchy areas on arms, legs, trunk twice daily as needed hydrocortis 2020-0 Yes [id number] Apply to [facility] 2.5 % 1-02 affected ity of cream 00:00: area(s) 2 [place] 00 (two) Medical times Branch daily. Apply to itchy areas on arms, legs, trunk twice daily as needed hydrocortis 2020-0 Yes [id number] Apply to [facility] 2.5 % 1-02 affected ity of cream 00:00: area(s) 2 [place] 00 (two) Medical times Branch daily. Apply to itchy areas on arms, legs, trunk twice daily as needed hydrocortis 2020-0 Yes [id number] Apply to [facility] 2.5 % 1-02 affected ity of cream 00:00: area(s) 2 [place] 00 (two) Medical times Branch daily. Apply to itchy areas on arms, legs, trunk twice daily as needed hydrocortis 2020-0 Yes [id number] Apply to [facility] 2.5 % 1-02 affected ity of cream 00:00: area(s) 2 [place] 00 (two) Medical times Branch daily. Apply to itchy areas on arms, legs, trunk twice daily as needed hydrocortis 2020-0 Yes [id number] Apply to [facility] 2.5 % 1-02 affected ity of cream 00:00: area(s) 2 [place] [address] (two) Medical times Branch daily. Apply to itchy areas on arms, legs, trunk twice daily as needed hydrocortis 2020-0 Yes [id number] Apply to [facility] 2.5 % 1-02 affected ity of cream 00:00: area(s) 2 [place] (two) Medical times Branch daily. Apply to itchy areas on arms, legs, trunk twice daily as needed hydrocortis 2020-0 Yes [id number] Apply to [facility] 2.5 % 1-02 affected ity of cream 00:00: area(s) 2 [place] (two) Medical times Branch daily. Apply to itchy areas on arms, legs, trunk twice daily as needed hydrocortis 2020-0 Yes [id number] Apply to [facility] 2.5 % 1-02 affected ity of cream 00:00: area(s) 2 [place] (two) Medical times Branch daily. Apply to itchy areas on arms, legs, trunk twice daily as needed hydrocortis 2020-0 Yes [id number] Apply to [facility] 2.5 % 1-02 affected ity of cream 00:00: area(s) 2 [place] (two) Medical times Branch daily. Apply to itchy areas on arms, legs, trunk twice daily as needed hydrocortis 2020-0 Yes [id number] Apply to [facility] 2.5 % 1-02 affected ity of cream 00:00: area(s) 2 [place] (two) Medical times Branch daily. Apply to itchy areas on arms, legs, trunk twice daily as needed hydrocortis 2020-0 Yes [id number] Apply to [facility] 2.5 % 1-02 affected ity of cream 00:00: area(s) 2 [place] (two) Medical times Branch daily. Apply to itchy areas on arms, legs, trunk twice daily as needed hydrocortis 2020-0 Yes [id number] Apply to [facility] 2.5 % 1-02 affected ity of cream 00:00: area(s) 2 [place] (two) Medical times Branch daily. Apply to itchy areas on arms, legs, trunk twice daily as needed hydrocortis 2020-0 Yes [id number] Apply to [facility] 2.5 % 1-02 affected ity of cream 00:00: area(s) 2 [place] [address] (two) Medical times Branch daily. Apply to itchy areas on arms, legs, trunk twice daily as needed hydrocortis 2020-0 Yes [id number] Apply to [facility] 2.5 % 1-02 affected ity of cream 00:00: area(s) 2 [place] 00 (two) Medical times Branch daily. Apply to itchy areas on arms, legs, trunk twice daily as needed hydrocortis 2020-0 Yes [id number] Apply to [facility] 2.5 % 1-02 affected ity of cream 00:00: area(s) 2 [place] 00 (two) Medical times Branch daily. Apply to itchy areas on arms, legs, trunk twice daily as needed hydrocortis 2020-0 Yes [id number] Apply to [facility] 2.5 % 1-02 affected ity of cream 00:00: area(s) 2 [place] (two) Medical times Branch daily. Apply to itchy areas on arms, legs, trunk twice daily as needed hydrocortis 2020-0 Yes [id number] Apply to [facility] 2.5 % 1-02 affected ity of cream 00:00: area(s) 2 [place] (two) Medical times Branch daily. Apply to itchy areas on arms, legs, trunk twice daily as needed hydrocortis 2020-0 Yes [id number] Apply to [facility] 2.5 % 1-02 affected ity of cream 00:00: area(s) 2 [place] 00 (two) Medical times Branch daily. Apply to itchy areas on arms, legs, trunk twice daily as needed hydrocortis 2020-0 Yes [id number] Apply to [facility] 2.5 % 1-02 affected ity of cream 00:00: area(s) 2 [place] 00 (two) Medical times Branch daily. Apply to itchy areas on arms, legs, trunk twice daily as needed hydrocortis 2020-0 Yes [id number] Apply to [facility] 2.5 % 1-02 affected ity of cream 00:00: area(s) 2 [place] 00 (two) Medical times Branch daily. Apply to itchy areas on arms, legs, trunk twice daily as needed hydrocortis 2020-0 Yes [id number] Apply to [facility] 2.5 % 1-02 affected ity of cream 00:00: area(s) 2 [place] 00 (two) Medical times Branch daily. Apply to itchy areas on arms, legs, trunk twice daily as needed hydrocortis 2020-0 Yes [id number] Apply to [facility] 2.5 % 1-02 affected ity of cream 00:00: area(s) 2 [place] 00 (two) Medical times Branch daily. Apply to itchy areas on arms, legs, trunk twice daily as needed hydrocortis 2020-0 Yes [id number] Apply to [facility] 2.5 % 1-02 affected ity of cream 00:00: area(s) 2 [place] 00 (two) Medical times Branch daily. Apply to itchy areas on arms, legs, trunk twice daily as needed hydrocortis 2020-0 Yes [id number] Apply to [facility] 2.5 % 1-02 affected ity of cream 00:00: area(s) 2 [place] 00 (two) Medical times Branch daily. Apply to itchy areas on arms, legs, trunk twice daily as needed hydrocortis 2020-0 Yes [id number] Apply to [facility] 2.5 % 1-02 affected ity of cream 00:00: area(s) 2 [place] 00 (two) Medical times Branch daily. Apply to itchy areas on arms, legs, trunk twice daily as needed hydrocortis 2020-0 Yes [id number] Apply to [facility] 2.5 % 1-02 affected ity of cream 00:00: area(s) 2 [place] 00 (two) Medical times Branch daily. Apply to itchy areas on arms, legs, trunk twice daily as needed hydrocortis 2020-0 Yes [id number] Apply to [facility] 2.5 % 1-02 affected ity of cream 00:00: area(s) 2 [place] 00 (two) Medical times Branch daily. Apply to itchy areas on arms, legs, trunk twice daily as needed hydrocortis 2020-0 Yes [id number] Apply to [facility] 2.5 % 1-02 affected ity of cream 00:00: area(s) 2 [place] 00 (two) Medical times Branch daily. Apply to itchy areas on arms, legs, trunk twice daily as needed hydrocortis 2020-0 Yes [id number] Apply to [facility] 2.5 % 1-02 affected ity of cream 00:00: area(s) 2 [place] 00 (two) Medical times Branch daily. Apply to itchy areas on arms, legs, trunk twice daily as needed hydrocortis 2020-0 Yes [id number] Apply to [facility] 2.5 % 1-02 affected ity of cream 00:00: area(s) 2 [place] [address] (two) Medical times Branch daily. Apply to itchy areas on arms, legs, trunk twice daily as needed hydrocortis Yes [id number] Apply to [facility] 2.5 % 1-02 affected ity of cream 00:00: area(s) 2 [place] [address] (two) Medical times Branch daily. Apply to itchy areas on arms, legs, trunk twice daily as needed hydrocortis Yes [id number] Apply to [facility] 2.5 % 1- affected ity of cream 00:00: area(s) 2 [place] [address] (two) Medical times Branch daily. Apply to itchy areas on arms, legs, trunk twice daily as needed hydrocortis Yes [id number] Apply to [facility] 2.5 % 1- affected ity of cream 00:00: area(s) 2 [place] [address] (two) Medical times Branch daily. Apply to itchy areas on arms, legs, trunk twice daily as needed hydrocortis Yes [id number] Apply to [facility] 2.5 % 1- affected ity of cream 00:00: area(s) 2 [place] [address] (two) Medical times Branch daily. Apply to itchy areas on arms, legs, trunk twice daily as needed VITAMIN C 2020- No 500mg Take 500 Un violeta 500 mg 08-28 01-05 mg by ity of tablet 00:00: 00:00 mouth [place] 00 :00 daily. Medical Branch Fluocinolon 2017-07- No [id number] Apply to [facility] e-Hydroq.-T 08-23 area(s) at i ty of retinoin 00:00: [place] 00 :00 Medical 0.01-4-0.05 Branch % cream Fluocinolon 2017-07- No [id number] Apply to [facility] e-Hydroq.-T 08-23 area(s) at i ty of retinoin 00:00: [place] 00 :00 Medical 0.01-4-0.05 Branch % cream Pantoprazol Pantoprazol No Pantoprazo e Sodium 40 e Sodium 40 le Sodium MG MG 40 MG BuPROPion BuPROPion No BuPROPion HCl ER (XL) HCl ER (XL) HCl ER 300 MG 300 MG (XL) 300 MG Lisinopril- Lisinopril- No QD Lisinopril Hydrochloro Hydrochloro -Hydrochlo thiazide thiazide rothiazide 20-12.5 MG 20-12.5 MG 20-12.5 MG Metformin Metformin No Metformin HCl 500 MG HCl 500 MG HCl 500 MG Triamcinolo Triamcinolo No Triamcinol ne ne one Acetonide Acetonide Acetonide 0.1 % 0.1 % 0.1 % Fluoxetine Fluoxetine No Fluoxetine HCl 40 MG HCl 40 MG HCl 40 MG Hydroxychlo Hydroxychlo No Hydroxychl roquine roquine oroquine Sulfate 200 Sulfate 200 Sulfate MG MG 200 MG Folic Acid Folic Acid No 1{table QD Folic Acid 1 MG 1 MG t} 1 MG Clonazepam Clonazepam No Clonazepam 2 MG 2 MG 2 MG Lamotrigine Lamotrigine No Lamotrigin 100 MG 100 MG e 100 MG BuPROPion BuPROPion No 1{table BID BuPROPion HCl 100 MG HCl 100 MG t} HCl 100 MG Hydrocodone Hydrocodone No Hydrocodon -Acetaminop -Acetaminop e-Acetamin hen 7.5-325 hen 7.5-325 ophen MG MG 7.5-325 MG Leflunomide Leflunomide No Leflunomid 20 MG 20 MG e 20 MG BuPROPion BuPROPion No 2{table BID BuPROPion HCl 75 MG HCl 75 MG ts} HCl 75 MG Timolol Timolol No Timolol Maleate 0.5 Maleate 0.5 Maleate % % 0.5 % Metformin Metformin No 1{table QD Metformin HCl 500 MG HCl 500 MG t_with_ HCl 500 MG a_meal} Furosemide Furosemide No Furosemide 40 MG 40 MG 40 MG Mobic 7.5 Mobic 7.5 No 1{table QD Mobic 7.5 MG MG t} MG Latuda 40 Latuda 40 No 1{table QD Latuda 40 MG MG t_with_ MG food} OneTouch OneTouch No OneTouch Verio - Verio - Verio - Allopurinol Allopurinol No Allopurino 100 MG 100 MG l 100 MG Gabapentin Gabapentin No Gabapentin 800 MG 800 MG 800 MG Azithromyci Azithromyci No Azithromyc n 250 MG n 250 MG in 250 MG Metaxalone Metaxalone No Metaxalone 800 MG 800 MG 800 MG Pantoprazol Pantoprazol No Pantoprazo e Sodium 40 e Sodium 40 le Sodium MG MG 40 MG BuPROPion BuPROPion No BuPROPion HCl ER (XL) HCl ER (XL) HCl ER 300 MG 300 MG (XL) 300 MG Lisinopril- Lisinopril- No QD Lisinopril Hydrochloro Hydrochloro -Hydrochlo thiazide thiazide rothiazide 20-12.5 MG 20-12.5 MG 20-12.5 MG Metformin Metformin No Metformin HCl 500 MG HCl 500 MG HCl 500 MG Triamcinolo Triamcinolo No Triamcinol ne ne one Acetonide Acetonide Acetonide 0.1 % 0.1 % 0.1 % Fluoxetine Fluoxetine No Fluoxetine HCl 40 MG HCl 40 MG HCl 40 MG Hydroxychlo Hydroxychlo No Hydroxychl roquine roquine oroquine Sulfate 200 Sulfate 200 Sulfate MG MG 200 MG Folic Acid Folic Acid No 1{table QD Folic Acid 1 MG 1 MG t} 1 MG Clonazepam Clonazepam No Clonazepam 2 MG 2 MG 2 MG Lamotrigine Lamotrigine No Lamotrigin 100 MG 100 MG e 100 MG BuPROPion BuPROPion No 1{table BID BuPROPion HCl 100 MG HCl 100 MG t} HCl 100 MG Hydrocodone Hydrocodone No Hydrocodon -Acetaminop -Acetaminop e-Acetamin hen 7.5-325 hen 7.5-325 ophen MG MG 7.5-325 MG Leflunomide Leflunomide No Leflunomid 20 MG 20 MG e 20 MG BuPROPion BuPROPion No 2{table BID BuPROPion HCl 75 MG HCl 75 MG ts} HCl 75 MG Timolol Timolol No Timolol Maleate 0.5 Maleate 0.5 Maleate % % 0.5 % Metformin Metformin No 1{table QD Metformin HCl 500 MG HCl 500 MG t_with_ HCl 500 MG a_meal} Furosemide Furosemide No Furosemide 40 MG 40 MG 40 MG Mobic 7.5 Mobic 7.5 No 1{table QD Mobic 7.5 MG MG t} MG Latuda 40 Latuda 40 No 1{table QD Latuda 40 MG MG t_with_ MG food} OneTouch OneTouch No OneTouch Verio - Verio - Verio - Allopurinol Allopurinol No Allopurino 100 MG 100 MG l 100 MG Timolol Timolol No Timolol Maleate 0.5 Maleate 0.5 Maleate % % 0.5 % Leflunomide Leflunomide No Leflunomid 20 MG 20 MG e 20 MG Allopurinol Allopurinol No 1{table QD Allopurino 100 MG 100 MG t} l 100 MG Lamotrigine Lamotrigine No Lamotrigin 100 MG 100 MG e 100 MG Gabapentin Gabapentin No Gabapentin 800 MG 800 MG 800 MG Pantoprazol Pantoprazol No Pantoprazo e Sodium 40 e Sodium 40 le Sodium MG MG 40 MG Metaxalone Metaxalone No Metaxalone 800 MG 800 MG 800 MG Lisinopril- Lisinopril- No Lisinopril Hydrochloro Hydrochloro -Hydrochlo thiazide thiazide rothiazide 20-12.5 MG 20-12.5 MG 20-12.5 MG Triamcinolo Triamcinolo No Triamcinol ne ne one Acetonide Acetonide Acetonide 0.1 % 0.1 % 0.1 % Metformin Metformin No Metformin HCl 500 MG HCl 500 MG HCl 500 MG Azithromyci Azithromyci No Azithromyc n 250 MG n 250 MG in 250 MG Hydroxychlo Hydroxychlo No Hydroxychl roquine roquine oroquine Sulfate 200 Sulfate 200 Sulfate MG MG 200 MG Folic Acid Folic Acid No 1{table QD Folic Acid 1 MG 1 MG t} 1 MG Allopurinol Allopurinol No Allopurino 100 MG 100 MG l 100 MG Fluoxetine Fluoxetine No Fluoxetine HCl 40 MG HCl 40 MG HCl 40 MG BuPROPion BuPROPion No 1{table BID BuPROPion HCl 100 MG HCl 100 MG t} HCl 100 MG BuPROPion BuPROPion No BuPROPion HCl ER (XL) HCl ER (XL) HCl ER 300 MG 300 MG (XL) 300 MG Hydrocodone Hydrocodone No Hydrocodon -Acetaminop -Acetaminop e-Acetamin hen 7.5-325 hen 7.5-325 ophen MG MG 7.5-325 MG BuPROPion BuPROPion No 2{table BID BuPROPion HCl 75 MG HCl 75 MG ts} HCl 75 MG Metformin Metformin No 1{table QD Metformin HCl 500 MG HCl 500 MG t_with_ HCl 500 MG a_meal} Clonazepam Clonazepam No Clonazepam 2 MG 2 MG 2 MG Latuda 40 Latuda 40 No 1{table QD Latuda 40 MG MG t_with_ MG food} Furosemide Furosemide No Furosemide 40 MG 40 MG 40 MG Mobic 7.5 Mobic 7.5 No 1{table QD Mobic 7.5 MG MG t} MG OneTouch OneTouch No OneTouch Verio - Verio - Verio - Timolol Timolol No Timolol Maleate 0.5 Maleate 0.5 Maleate % % 0.5 % Leflunomide Leflunomide No Leflunomid 20 MG 20 MG e 20 MG Allopurinol Allopurinol No 1{table QD Allopurino 100 MG 100 MG t} l 100 MG Lamotrigine Lamotrigine No Lamotrigin 100 MG 100 MG e 100 MG Gabapentin Gabapentin No Gabapentin 800 MG 800 MG 800 MG Pantoprazol Pantoprazol No Pantoprazo e Sodium 40 e Sodium 40 le Sodium MG MG 40 MG Metaxalone Metaxalone No Metaxalone 800 MG 800 MG 800 MG Lisinopril- Lisinopril- No Lisinopril Hydrochloro Hydrochloro -Hydrochlo thiazide thiazide rothiazide 20-12.5 MG 20-12.5 MG 20-12.5 MG Triamcinolo Triamcinolo No Triamcinol ne ne one Acetonide Acetonide Acetonide 0.1 % 0.1 % 0.1 % Metformin Metformin No Metformin HCl 500 MG HCl 500 MG HCl 500 MG Azithromyci Azithromyci No Azithromyc n 250 MG n 250 MG in 250 MG Hydroxychlo Hydroxychlo No Hydroxychl roquine roquine oroquine Sulfate 200 Sulfate 200 Sulfate MG MG 200 MG Folic Acid Folic Acid No 1{table QD Folic Acid 1 MG 1 MG t} 1 MG Allopurinol Allopurinol No Allopurino 100 MG 100 MG l 100 MG Fluoxetine Fluoxetine No Fluoxetine HCl 40 MG HCl 40 MG HCl 40 MG BuPROPion BuPROPion No 1{table BID BuPROPion HCl 100 MG HCl 100 MG t} HCl 100 MG BuPROPion BuPROPion No BuPROPion HCl ER (XL) HCl ER (XL) HCl ER 300 MG 300 MG (XL) 300 MG Hydrocodone Hydrocodone No Hydrocodon -Acetaminop -Acetaminop e-Acetamin hen 7.5-325 hen 7.5-325 ophen MG MG 7.5-325 MG BuPROPion BuPROPion No 2{table BID BuPROPion HCl 75 MG HCl 75 MG ts} HCl 75 MG Metformin Metformin No 1{table QD Metformin HCl 500 MG HCl 500 MG t_with_ HCl 500 MG a_meal} Clonazepam Clonazepam No Clonazepam 2 MG 2 MG 2 MG Latuda 40 Latuda 40 No 1{table QD Latuda 40 MG MG t_with_ MG food} Furosemide Furosemide No Furosemide 40 MG 40 MG 40 MG Mobic 7.5 Mobic 7.5 No 1{table QD Mobic 7.5 MG MG t} MG OneTouch OneTouch No OneTouch Verio - Verio - Verio - Metaxalone Metaxalone Yes Jono TAKE 1 Common Diamond TABLET BY [facility] MOU[facility] - [facility] EVERY DAY [facility] Furosemide Furosemide Yes Jono TAKE 1 Common Diamond TABLET BY Spirit MOUTH - [facility] TWICE A [facility] Lisinopril- Lisinopril- Yes Jono TAKE 1 Common Hydrochloro Hydrochloro Diamond TABLET BY [facility] thiazide thiazide MOUTH - [facility] EVERY [facility] Hydrocodone Hydrocodone Yes Jono (Schedule Common -Acetaminop -Acetaminop Diamond II Drug) Spirit hen hen TAKE 1 - [facility] TABLET BY [facility] TIMES A [facility] DAY [place] Fluoxetine Fluoxetine Yes Jono TAKE 1 Common HCl HCl Diamond CAPSULE BY Spirit MOUTH - [facility] EVERY DAY [facility] OneTouch OneTouch Yes Jono USE ONCE A Common Verio Verio Diamond DAY IN [facility] MORNING - [facility] Allopurinol Allopurinol Yes Jono TAKE 1/2 Common Diamond TABLET Spirit TWICE A - [facility] DAY [facility] Lamotrigine Lamotrigine Yes Jono TAKE 1 Common Diamond TABLET BY Spirit MOUTH - [facility] EVERY DAY [facility] Gabapentin Gabapentin Yes Jono TAKE 1 Common Diamond TABLET BY [facility] MOU[facility] - [facility] THREE [facility] TIMES A [facility] BuPROPion BuPROPion Yes Jono TAKE 1 Common HCl ER (XL) HCl ER (XL) Diamond TABLET Spirit EVERY - [facility] MORNING [facility] Mobic Mobic Yes Jono 1 tablet Common Diamond Spirit - [facility] Latuda Latuda Yes Jono 1 tablet Comm on Diamond with food [facility] Clonazepam Clonazepam Yes Jono (Schedule Common Diamond IV Drug) Mandeep TAKE 1 - [facility] TABLET BY [facility] 3 [facility] TIMES A Medical DAY FOR 30 Center DAYS Triamcinolo Triamcinolo Yes Jono APPLY 1-2 Common ne ne Diamond GRAMS TO Spirit Acetonide Acetonide AFFECTED - [facility] AREA(S) UP St TO 3-4 [facility] TIMES Medical DAILY Center NEEDED, AVOID FACE. USE 2 WEEKS ON, 1 WEEK OFF LONG DIRECTED BY PHYSICIAN Metformin Metformin Yes Jono TAKE 1 Common HCl HCl Diamond TABLET BY [facility] MOUTH - [facility] TW[facility] Leflunomide Leflunomide Yes Jono TAKE 1 Common Diamond TABLET BY [facility] MOUTH - [facility] EVERY DAY [facility] Azithromyci Azithromyci Yes Jono TAKE 2 Common n n Diamond TABLETS BY [facility] MOU[facility] - [facility] TODAY, St THEN TAKE [facility] 1 TABLET Medical DAILY FOR Center 4 DAYS Timolol Timolol Yes Jono INSTILL 1 C ommon Maleate Maleate Diamond DROP INTO Spir it BOTH EYES - [facility] EVERY St MORNING [facility] Pantoprazol Pantoprazol Yes Jono TAKE 1 Common e Sodium e Sodium Diamond TABLET BY Sp adriel MOUTH - [facility] DAILY [address] MINUTES [facility] BEFORE Medical BREAKFAST Center (ON AN EMPTY STOMACH) Gabapentin Gabapentin No Gabapentin 800 MG 800 MG 800 MG Azithromyci Azithromyci No Azithromyc n 250 MG n 250 MG in 250 MG Metaxalone Metaxalone No Metaxalone 800 MG 800 MG 800 MG Immunizations Ordered Filled Immunization Date Status Comments Sour e Immunization Name Name Influenza Virus 2022-04-27 Completed [facility]:00:00 [facility], Preserv and ABX Branc h Free 18-64 YRS Influenza Virus 2022-04-27 Completed [facility] 00:00:00 [facility], Preserv and ABX Branc h Free 18-64 YRS Influenza Virus 2022-04-27 Completed [facility] 00:00:00 [facility], Preserv and ABX Branc h Free 1864 YRS Influenza Virus 2022-04-27 Completed [facility] 00:00:00 [facility], Preserv and ABX Branc h Free 1864 YRS Influenza Virus 2022-04-27 Completed [facility] 00:00:00 [facility], Preserv and ABX Branc h Free 18-64 YRS Influenza Virus 2022-04-27 Completed [facility] 00:00:00 [facility], Preserv and ABX Branc h Free 18-64 YRS Influenza Virus 2022-04-27 Completed [facility] Vaccine [facility] 00:00:00 [facility], Preserv and ABX Branc h Free 18-64 YRS Influenza Virus 2022-04-27 Completed [facility] 00:00:00 [facility], Preserv and ABX Branc h Free 18-64 YRS Influenza Virus 2022-04-27 Completed [facility] 00:00:00 [facility], Preserv and ABX Branc h Free 18-64 YRS Influenza Virus 2022-04-27 Completed [facility] 00:00:00 [facility], Preserv and ABX Branc h Free 18-64 YRS Influenza Virus 2022-04-27 Completed [facility] 00:00:00 [facility], Preserv and ABX Branc h Free 18-64 YRS Influenza Virus 2022-04-27 Completed [facility] 00:00:00 [facility], Preserv and ABX Branc h Free 18-64 YRS Influenza Virus 2022-04-27 Completed [facility]ine [facility] 00:00:00 [facility], Preserv and ABX Branc h Free 18-64 YRS Influenza Virus 2022-04-27 Completed [facility] 00:00:00 [facility], Preserv and ABX Branc h Free 18-64 YRS Influenza Virus 2022-04-27 Completed [facility] 00:00:00 [facility], Preserv and ABX Branc h Free 18-64 YRS Influenza Virus 2022-04-27 Completed [facility] 00:00:00 [facility], Preserv and ABX Branc h Free 18-64 YRS Influenza Virus 2022-04-27 Completed [facility]ine [facility] 00:00:00 [facility], Preserv and ABX Branc h Free 18-64 YRS Influenza Virus 2022-04-27 Completed [facility] 00:00:00 [facility], Preserv and ABX Branc h Free 18-64 YRS Influenza Virus 2022-04-27 Completed [facility] 00:00:00 [facility], Preserv and ABX Branc h Free 18-64 YRS Influenza Virus 2022-04-27 Completed [facility]ine [facility] 00:00:00 [facility], Preserv and ABX Branc h Free 18-64 YRS Influenza Virus 2022-04-27 Completed [facility]ine [facility] 00:00:00 [facility], Preserv and ABX Branc h Free 18-64 YRS Influenza Virus 2022-04-27 Completed [facility] 00:00:00 [facility], Preserv and ABX Branc h Free 18-64 YRS Influenza Virus 2022-04-27 Completed [facility] 00:00:00 [facility], Preserv and ABX Branc h Free 18-64 YRS Influenza Virus 2022-04-27 Completed [facility]ine [facility] 00:00:00 [facility], Preserv and ABX Branc h Free 18-64 YRS Influenza Virus 2022-04-27 Completed [facility]ine [facility] 00:00:00 [facility], Preserv and ABX Branc h Free 18-64 YRS Influenza Virus 2022-04-27 Completed [facility]ine [facility] 00:00:00 [facility], Preserv and ABX Branc h Free 18-64 YRS Influenza Virus 2022-04-27 Completed [facility] 00:00:00 [facility], Preserv and ABX Branc h Free 18-64 YRS Influenza Virus 2022-04-27 Completed [facility] 00:00:00 [facility], Preserv and ABX Branc h Free 18-64 YRS Influenza Virus 2022-04-27 Completed [facility] 00:00:00 [facility], Preserv and ABX Branc h Free 18-64 YRS Influenza Virus 2022-04-27 Completed [facility]ine [facility] 00:00:00 [facility], Preserv and ABX Branc h Free 18-64 YRS Influenza Virus 2022-04-27 Completed [facility] 00:00:00 [facility], Preserv and ABX Branc h Free 18-64 YRS Influenza Virus 2022-04-27 Completed [facility] 00:00:00 [facility], Preserv and ABX Branc h Free 18-64 YRS Influenza Virus 2022-04-27 Completed [facility]ine [facility] 00:00:00 [facility], Preserv and ABX Branc h Free 18-64 YRS Influenza Virus 2022-04-27 Completed [facility] Vaccine [facility] 00:00:00 [facility], Preserv and ABX Branc h Free 18-64 YRS Influenza Virus 2022-04-27 Completed [facility]ine [facility] 00:00:00 [facility], Preserv and ABX Branc h Free 18-64 YRS Influenza Virus 2022-04-27 Completed [facility]ine [facility] 00:00:00 [facility], Preserv and ABX Branc h Free 18-64 YRS Influenza Virus 2022-04-27 Completed [facility]ine [facility] 00:00:00 [facility], Preserv and ABX Branc h Free 18-64 YRS Influenza Virus 2022-04-27 Completed [facility] Vaccine [facility] 00:00:00 [facility], Preserv and ABX Branc h Free 18-64 YRS Influenza Virus 2022-04-27 Completed [facility]ine [facility] 00:00:00 [facility], Preserv and ABX Branc h Free 18-64 YRS Influenza Virus 2022-04-27 Completed [facility]ine [facility] 00:00:00 [facility], Preserv and ABX Branc h Free 18-64 YRS Influenza Virus 2022-04-27 Completed [facility] 00:00:00 [facility], Preserv and ABX Branc h Free 18-64 YRS Influenza Virus 2022-04-27 Completed [facility] Vaccine [facility] 00:00:00 [facility], Preserv and ABX Branc h Free 18-64 YRS Influenza Virus 2022-04-27 Completed [facility]ine [facility] 00:00:00 [facility], Preserv and ABX Branc h Free 18-64 YRS Influenza Virus 2022-04-27 Completed [facility]ine [facility] 00:00:00 [facility], Preserv and ABX Branc h Free 18-64 YRS Influenza Virus 2022-04-27 Completed [facility]ine [facility] 00:00:00 [facility], Preserv and ABX Branc h Free 18-64 YRS Influenza Virus 2022-04-27 Completed [facility] Vaccine [facility] 00:00:00 [facility], Preserv and ABX Branc h Free 18-64 YRS Influenza Virus 2022-04-27 Completed [facility] Vaccine [facility] 00:00:00 [facility], Preserv and ABX Branc h Free 18-64 YRS Influenza Virus 2022-04-27 Completed [facility] Vaccine [facility] 00:00:00 [facility], Preserv and ABX Branc h Free 18-64 YRS Influenza Virus 2022-04-27 Completed [facility] Vaccine [facility] 00:00:00 [facility], Preserv and ABX Branc h Free 18-64 YRS Influenza Virus 2022-04-27 Completed [facility] Vaccine [facility] 00:00:00 [facility], Preserv and ABX Branc h Free 18-64 YRS Influenza Virus 2022-04-27 Completed [facility] Vaccine [facility] 00:00:00 [facility], Preserv and ABX Branc h Free 18-64 YRS Influenza Virus 2022-04-27 Completed [facility] Vaccine [facility] 00:00:00 [facility], Preserv and ABX Branc h Free 18-64 YRS Influenza Virus 2022-04-27 Completed [facility] Vaccine [facility] 00:00:00 [facility], Preserv and ABX Branc h Free 18-64 YRS Influenza Virus 2022-04-27 Completed [facility] Vaccine [facility] 00:00:00 [facility], Preserv and ABX Branc h Free 18-64 YRS Influenza Virus 2022-04-27 Completed [facility] Vaccine [facility] 00:00:00 [facility], Preserv and ABX Branc h Free 18-64 YRS Influenza Virus 2022-04-27 Completed [facility] Vaccine [facility] 00:00:00 [facility], Preserv and ABX Branc h Free 18-64 YRS Influenza Virus 2022-04-27 Completed [facility] Vaccine [facility] 00:00:00 [facility], Preserv and ABX Branc h Free 18-64 YRS Influenza Virus 2022-04-27 Completed [facility] Vaccine [facility] 00:00:00 [facility], Preserv and ABX Branc h Free 18-64 YRS Influenza Virus 2022-04-27 Completed [facility] Vaccine [facility] 00:00:00 [facility], Preserv and ABX Branc h Free 18-64 YRS Influenza Virus 2022-04-27 Completed [facility] Vaccine [facility] 00:00:00 [facility], Preserv and ABX Branc h Free 18-64 YRS Influenza Virus 2022-04-27 Completed [facility] Vaccine [facility] 00:00:00 [facility], Preserv and ABX Branc h Free 18-64 YRS Influenza Virus 2022-04-27 Completed [facility] Vaccine [facility] 00:00:00 [facility], Preserv and ABX Branc h Free 18-64 YRS Influenza Virus 2022-04-27 Completed [facility] Vaccine [facility] 00:00:00 [facility], Preserv and ABX Branc h Free 18-64 YRS Influenza Virus 2022-04-27 Completed [facility] Vaccine [facility] 00:00:00 [facility], Preserv and ABX Branc h Free 18-64 YRS Influenza Virus 2022-04-27 Completed [facility] 00:00:00 [facility], Preserv and ABX Branc h Free 18-64 YRS SARS-COV-2 COVID-19 2022-03-17 Completed [facility]ive [facility] of VACCINE - (MODERNA) 00:00:00 [facility] SARS-COV-2 COVID-19 2022-03-17 Completed [facility]ive rsity of VACCINE - (MODERNA) 00:00:00 [facility] SARS-COV-2 COVID-19 2022-03-17 Completed [facility]ive rsity of VACCINE - (MODERNA) 00:00:00 [facility] SARS-COV-2 COVID-19 2022-03-17 Completed [facility]ive [facility] of VACCINE - (MODERNA) 00:00:00 [facility] SARS-COV-2 COVID-19 2022-03-17 Completed [facility]ive [facility] of VACCINE - (MODERNA) 00:00:00 [facility] SARS-COV-2 COVID-19 2022-03-17 Completed [facility]ive [facility] of VACCINE - (MODERNA) 00:00:00 [facility] SARS-COV-2 COVID-19 2022-03-17 Completed [facility]ive rsity of VACCINE - (MODERNA) 00:00:00 [facility] SARS-COV-2 COVID-19 2022-03-17 Completed [facility]ive rs[facility] of VACCINE - (MODERNA) 00:00:00 [facility] SARS-COV-2 COVID-19 2022-03-17 Completed [facility] of VACCINE - (MODERNA) 00:00:00 [facility] SARS-COV-2 COVID-19 2022-03-17 Completed [facility]ive rsity of VACCINE - (MODERNA) 00:00:00 [facility] SARS-COV-2 COVID-19 2022-03-17 Completed [facility]ive [facility] of VACCINE - (MODERNA) 00:00:00 [facility] SARS-COV-2 COVID-19 2022-03-17 Completed [facility]ive [facility] of VACCINE - (MODERNA) 00:00:00 [facility] SARS-COV-2 COVID-19 2022-03-17 Completed [facility] of VACCINE - (MODERNA) 00:00:00 [facility] SARS-COV-2 COVID-19 2022-03-17 Completed [facility] of VACCINE - (MODERNA) 00:00:00 [facility] SARS-COV-2 COVID-19 2022-03-17 Completed [facility] of VACCINE - (MODERNA) 00:00:00 [facility] SARS-COV-2 COVID-19 2022-03-17 Completed [facility] of VACCINE - (MODERNA) 00:00:00 [facility] SARS-COV-2 COVID-19 2022-03-17 Completed [facility] of VACCINE - (MODERNA) 00:00:00 [facility] SARS-COV-2 COVID-19 2022-03-17 Completed [facility] of VACCINE - (MODERNA) 00:00:00 [facility] SARS-COV-2 COVID-19 2022-03-17 Completed [facility] of VACCINE - (MODERNA) 00:00:00 [facility] SARS-COV-2 COVID-19 2022-03-17 Completed [facility] of VACCINE - (MODERNA) 00:00:00 [facility] SARS-COV-2 COVID-19 2022-03-17 Completed [facility]ive [facility] of VACCINE - (MODERNA) 00:00:00 [facility] SARS-COV-2 COVID-19 2022-03-17 Completed [facility] of VACCINE - (MODERNA) 00:00:00 [facility] SARS-COV-2 COVID-19 2022-03-17 Completed [facility] of VACCINE - (MODERNA) 00:00:00 [facility] SARS-COV-2 COVID-19 2022-03-17 Completed [facility] of VACCINE - (MODERNA) 00:00:00 [facility] SARS-COV-2 COVID-19 2022-03-17 Completed [facility] of VACCINE - (MODERNA) 00:00:00 [facility] SARS-COV-2 COVID-19 2022-03-17 Completed [facility] of VACCINE - (MODERNA) 00:00:00 [facility] SARS-COV-2 COVID-19 2022-03-17 Completed [facility] of VACCINE - (MODERNA) 00:00:00 [facility] SARS-COV-2 COVID-19 2022-03-17 Completed [facility] of VACCINE - (MODERNA) 00:00:00 [facility] SARS-COV-2 COVID-19 2022-03-17 Completed [facility] of VACCINE - (MODERNA) 00:00:00 [facility] SARS-COV-2 COVID-19 2022-03-17 Completed [facility] of VACCINE - (MODERNA) 00:00:00 [facility] SARS-COV-2 COVID-19 2022-03-17 Completed [facility] of VACCINE - (MODERNA) 00:00:00 [facility] SARS-COV-2 COVID-19 2022-03-17 Completed [facility] of VACCINE - (MODERNA) 00:00:00 [facility] SARS-COV-2 COVID-19 2022-03-17 Completed [facility] of VACCINE - (MODERNA) 00:00:00 [facility] SARS-COV-2 COVID-19 2022-03-17 Completed [facility] of VACCINE - (MODERNA) 00:00:00 [facility] SARS-COV-2 COVID-19 2022-03-17 Completed [facility] of VACCINE - (MODERNA) 00:00:00 [facility] SARS-COV-2 COVID-19 2022-03-17 Completed [facility] of VACCINE - (MODERNA) 00:00:00 [facility] SARS-COV-2 COVID-19 2022-03-17 Completed [facility] of VACCINE - (MODERNA) 00:00:00 [facility] SARS-COV-2 COVID-19 2022-03-17 Completed [facility] of VACCINE - (MODERNA) 00:00:00 [facility] SARS-COV-2 COVID-19 2022-03-17 Completed [facility] of VACCINE - (MODERNA) 00:00:00 [facility] SARS-COV-2 COVID-19 2022-03-17 Completed [facility] of VACCINE - (MODERNA) 00:00:00 [facility] SARS-COV-2 COVID-19 2022-03-17 Completed [facility] of VACCINE - (MODERNA) 00:00:00 [facility] SARS-COV-2 COVID-19 2022-03-17 Completed [facility] of VACCINE - (MODERNA) 00:00:00 [facility] SARS-COV-2 COVID-19 2022-03-17 Completed [facility] of VACCINE - (MODERNA) 00:00:00 [facility] SARS-COV-2 COVID-19 2022-03-17 Completed [facility] of VACCINE - (MODERNA) 00:00:00 [facility] SARS-COV-2 COVID-19 2022-03-17 Completed [facility] of VACCINE - (MODERNA) 00:00:00 [facility] SARS-COV-2 COVID-19 2022-03-17 Completed [facility] of VACCINE - (MODERNA) 00:00:00 [facility] SARS-COV-2 COVID-19 2022-03-17 Completed [facility] of VACCINE - (MODERNA) 00:00:00 [facility] SARS-COV-2 COVID-19 2022-03-17 Completed [facility] of VACCINE - (MODERNA) 00:00:00 [facility] SARS-COV-2 COVID-19 2022-03-17 Completed [facility] of VACCINE - (MODERNA) 00:00:00 [facility] SARS-COV-2 COVID-19 2022-03-17 Completed [facility] of VACCINE - (MODERNA) 00:00:00 [facility] SARS-COV-2 COVID-19 2022-03-17 Completed [facility] of VACCINE - (MODERNA) 00:00:00 [facility] SARS-COV-2 COVID-19 2022-03-17 Completed [facility] of VACCINE - (MODERNA) 00:00:00 [facility] SARS-COV-2 COVID-19 2022-03-17 Completed [facility] of VACCINE - (MODERNA) 00:00:00 [facility] SARS-COV-2 COVID-19 2022-03-17 Completed [facility] of VACCINE - (MODERNA) 00:00:00 [facility] SARS-COV-2 COVID-19 2022-03-17 Completed [facility] of VACCINE - (MODERNA) 00:00:00 [facility] SARS-COV-2 COVID-19 2022-03-17 Completed [facility] of VACCINE - (MODERNA) 00:00:00 [facility] SARS-COV-2 COVID-19 2022-03-17 Completed [facility] of VACCINE - (MODERNA) 00:00:00 [facility] SARS-COV-2 COVID-19 2022-03-17 Completed [facility] of VACCINE - (MODERNA) 00:00:00 [facility] SARS-COV-2 COVID-19 2022-03-17 Completed [facility] of VACCINE - (MODERNA) 00:00:00 [facility] SARS-COV-2 COVID-19 2022-03-17 Completed [facility] of VACCINE - (MODERNA) 00:00:00 [facility] SARS-COV-2 COVID-19 2022-03-17 Completed [facility] VACCINE - (MODERNA) 00:00:00 [facility] SARS-COV-2 COVID-19 2022-03-17 Completed [facility] VACCINE - (MODERNA) 00:00:00 [facility] SARS-COV-2 COVID-19 2022-03-17 Completed [facility] VACCINE - (MODERNA) 00:00:00 [facility] SARS-COV-2 COVID-19 2022-03-17 Completed [facility] VACCINE - (MODERNA) 00:00:00 [facility] SARS-COV-2 COVID-19 2022-03-17 Completed [facility] VACCINE - (MODERNA) 00:00:00 [facility] Influenza Virus 2021-04-28 Completed [facility] Vaccine [facility] .5 mL 00:00:00 [facility] (FLUZONE/FLULAVAL/F LUARIX) Influenza Virus 2021-04-28 Completed [facility] .5 mL 00:00:00 [facility] Influenza Virus 2021-04-28 Completed [facility] .5 mL 00:00:00 [facility] Influenza Virus 2021-04-28 Completed [facility] .5 mL 00:00:00 [facility] Influenza Virus 2021-04-28 Completed [facility] .5 mL 00:00:00 [facility] Influenza Virus 2021-04-28 Completed [facility] .5 mL 00:00:00 [facility] Influenza Virus 2021-04-28 Completed [facility] .5 mL 00:00:00 [facility] Influenza Virus 2021-04-28 Completed [facility]ine [facility] .5 mL 00:00:00 [facility] Influenza Virus 2021-04-28 Completed [facility]ine [facility] .5 mL 00:00:00 [facility] Influenza Virus 2021-04-28 Completed [facility] Vaccine [facility] .5 mL 00:00:00 [facility] Influenza Virus 2021-04-28 Completed [facility] Vaccine [facility] .5 mL 00:00:00 [facility] Influenza Virus 2021-04-28 Completed [facility]ine [facility] .5 mL 00:00:00 [facility] Influenza Virus 2021-04-28 Completed [facility] Vaccine [facility] .5 mL 00:00:00 [facility] Influenza Virus 2021-04-28 Completed [facility] Vaccine [facility] .5 mL 00:00:00 [facility] Influenza Virus 2021-04-28 Completed [facility] Vaccine [facility] .5 mL 00:00:00 [facility] Influenza Virus 2021-04-28 Completed [facility] Vaccine [facility] .5 mL 00:00:00 [facility] Influenza Virus 2021-04-28 Completed [facility] Vaccine [facility] .5 mL 00:00:00 [facility] Influenza Virus 2021-04-28 Completed [facility] Vaccine [facility] .5 mL 00:00:00 [facility] Influenza Virus 2021-04-28 Completed [facility]ine [facility] .5 mL 00:00:00 [facility] Influenza Virus 2021-04-28 Completed [facility] Vaccine [facility] .5 mL 00:00:00 [facility] Influenza Virus 2021-04-28 Completed [facility]ine [facility] .5 mL 00:00:00 [facility] Influenza Virus 2021-04-28 Completed [facility] Vaccine [facility] .5 mL 00:00:00 [facility] Influenza Virus 2021-04-28 Completed [facility] Vaccine [facility] .5 mL 00:00:00 [facility] Influenza Virus 2021-04-28 Completed [facility] Vaccine [facility] .5 mL 00:00:00 [facility] Influenza Virus 2021-04-28 Completed [facility] Vaccine [facility] .5 mL 00:00:00 [facility] Influenza Virus 2021-04-28 Completed [facility]ine [facility] .5 mL 00:00:00 [facility] Influenza Virus 2021-04-28 Completed [facility] Vaccine [facility] .5 mL 00:00:00 [facility] Influenza Virus 2021-04-28 Completed [facility] Vaccine [facility] .5 mL 00:00:00 [facility] Influenza Virus 2021-04-28 Completed [facility] Vaccine [facility] .5 mL 00:00:00 [facility] Influenza Virus 2021-04-28 Completed [facility]ine [facility] .5 mL 00:00:00 [facility] Influenza Virus 2021-04-28 Completed [facility] Vaccine [facility] .5 mL 00:00:00 [facility] Influenza Virus 2021-04-28 Completed [facility] Vaccine [facility] .5 mL 00:00:00 [facility] Influenza Virus 2021-04-28 Completed [facility] Vaccine [facility] .5 mL 00:00:00 [facility] Influenza Virus 2021-04-28 Completed [facility] Vaccine [facility] .5 mL 00:00:00 [facility] Influenza Virus 2021-04-28 Completed [facility] Vaccine [facility] .5 mL 00:00:00 [facility] Influenza Virus 2021-04-28 Completed [facility] Vaccine [facility] .5 mL 00:00:00 [facility] Influenza Virus 2021-04-28 Completed [facility] Vaccine [facility] .5 mL 00:00:00 [facility] Influenza Virus 2021-04-28 Completed [facility] Vaccine [facility] .5 mL 00:00:00 [facility] Influenza Virus 2021-04-28 Completed [facility] Vaccine [facility] .5 mL 00:00:00 [facility] Influenza Virus 2021-04-28 Completed [facility] Vaccine [facility] .5 mL 00:00:00 [facility] Influenza Virus 2021-04-28 Completed [facility] Vaccine [facility] .5 mL 00:00:00 [facility] Influenza Virus 2021-04-28 Completed [facility] Vaccine [facility] .5 mL 00:00:00 [facility] Influenza Virus 2021-04-28 Completed [facility] Vaccine [facility] .5 mL 00:00:00 [facility] Influenza Virus 2021-04-28 Completed [facility] Vaccine [facility] .5 mL 00:00:00 [facility] Influenza Virus 2021-04-28 Completed [facility] Vaccine [facility] .5 mL 00:00:00 [facility] Influenza Virus 2021-04-28 Completed [facility] Vaccine [facility] .5 mL 00:00:00 [facility] Influenza Virus 2021-04-28 Completed [facility] Vaccine [facility] .5 mL 00:00:00 [facility] Influenza Virus 2021-04-28 Completed [facility] Vaccine [facility] .5 mL 00:00:00 [facility] Influenza Virus 2021-04-28 Completed [facility] Vaccine [facility] .5 mL 00:00:00 [facility] Influenza Virus 2021-04-28 Completed [facility] Vaccine [facility] .5 mL 00:00:00 [facility] Influenza Virus 2021-04-28 Completed [facility] Vaccine [facility] .5 mL 00:00:00 [facility] Influenza Virus 2021-04-28 Completed [facility] Vaccine [facility] .5 mL 00:00:00 [facility] Influenza Virus 2021-04-28 Completed [facility] Vaccine [facility] .5 mL 00:00:00 [facility] Influenza Virus 2021-04-28 Completed [facility] Vaccine [facility] .5 mL 00:00:00 [facility] Influenza Virus 2021-04-28 Completed [facility] Vaccine Quad .5 mL 00:00:00 [facility] Influenza Virus 2021-04-28 Completed [facility] Vaccine [facility] .5 mL 00:00:00 [facility] Influenza Virus 2021-04-28 Completed [facility] Vaccine Quad .5 mL 00:00:00 [facility] Influenza Virus 2021-04-28 Completed [facility] Vaccine [facility] .5 mL 00:00:00 [facility] Influenza Virus 2021-04-28 Completed [facility] Vaccine [facility] .5 mL 00:00:00 [facility] Influenza Virus 2021-04-28 Completed [facility] Vaccine Quad .5 mL 00:00:00 [facility] Influenza Virus 2021-04-28 Completed [facility] Vaccine [facility] .5 mL 00:00:00 [facility] Influenza Virus 2021-04-28 Completed [facility] Vaccine [facility] .5 mL 00:00:00 [facility] Influenza Virus 2021-04-28 Completed [facility] Vaccine [facility] .5 mL 00:00:00 [facility] Influenza Virus 2021-04-28 Completed [facility] Vaccine [facility] .5 mL 00:00:00 [facility] Influenza Virus 2021-04-28 Completed [facility] Vaccine [facility] .5 mL 00:00:00 [facility] Influenza Virus 2021-04-28 Completed [facility] Vaccine Quad .5 mL 00:00:00 [facility] Influenza Virus 2021-04-28 Completed [facility] Vaccine [facility] .5 mL 00:00:00 [facility] Influenza Virus 2021-04-28 Completed [facility] Vaccine Quad .5 mL 00:00:00 [facility] Influenza Virus 2021-04-28 Completed [facility] Vaccine Quad .5 mL 00:00:00 [facility] Influenza Virus 2021-04-28 Completed [facility] Vaccine [facility] .5 mL 00:00:00 [facility] Influenza Virus 2021-04-28 Completed [facility] Vaccine Quad .5 mL 00:00:00 [facility] 6[facility] MO [facility] Influenza Virus 2021-04-28 Completed [facility] Vaccine Quad .5 mL 00:00:00 [facility] Influenza Virus 2021-04-28 Completed [facility] Vaccine Quad .5 mL 00:00:00 [facility] Influenza Virus 2021-04-28 Completed [facility] Vaccine Quad .5 mL 00:00:00 [facility] Influenza Virus 2021-04-28 Completed [facility] Vaccine [facility] .5 mL 00:00:00 [facility] 6[facility] MO [facility] Influenza Virus 2021-04-28 Completed [facility] Vaccine [facility] .5 mL 00:00:00 [facility] 6[facility] MO [facility] (FLUZONE/FLULAVAL/F LUARIX) SARS-COV-2 COVID-19 2021-04-18 Completed [facility] VACCINE - (MODERNA) 00:00:00 [facility] SARS-COV-2 COVID-19 2021-04-18 Completed [facility] VACCINE - (MODERNA) 00:00:00 [facility] SARS-COV-2 COVID-19 2021-04-18 Completed [facility] VACCINE - (MODERNA) 00:00:00 [facility] SARS-COV-2 COVID-19 2021-04-18 Completed [facility] VACCINE - (MODERNA) 00:00:00 [facility] SARS-COV-2 COVID-19 2021-04-18 Completed [facility] VACCINE - (MODERNA) 00:00:00 [facility] SARS-COV-2 COVID-19 2021-04-18 Completed [facility] VACCINE - (MODERNA) 00:00:00 [facility] SARS-COV-2 COVID-19 2021-04-18 Completed [facility] VACCINE - (MODERNA) 00:00:00 [facility] SARS-COV-2 COVID-19 2021-04-18 Completed [facility] VACCINE - (MODERNA) 00:00:00 [facility] SARS-COV-2 COVID-19 2021-04-18 Completed [facility] VACCINE - (MODERNA) 00:00:00 [facility] SARS-COV-2 COVID-19 2021-04-18 Completed [facility] VACCINE - (MODERNA) 00:00:00 [facility] SARS-COV-2 COVID-19 2021-04-18 Completed [facility] VACCINE - (MODERNA) 00:00:00 [facility] SARS-COV-2 COVID-19 2021-04-18 Completed [facility] VACCINE - (MODERNA) 00:00:00 [facility] SARS-COV-2 COVID-19 2021-04-18 Completed [facility] VACCINE - (MODERNA) 00:00:00 [facility] SARS-COV-2 COVID-19 2021-04-18 Completed [facility] VACCINE - (MODERNA) 00:00:00 [facility] SARS-COV-2 COVID-19 2021-04-18 Completed [facility] VACCINE - (MODERNA) 00:00:00 [facility] SARS-COV-2 COVID-19 2021-04-18 Completed [facility] VACCINE - (MODERNA) 00:00:00 [facility] SARS-COV-2 COVID-19 2021-04-18 Completed [facility] VACCINE - (MODERNA) 00:00:00 [facility] SARS-COV-2 COVID-19 2021-04-18 Completed [facility] VACCINE - (MODERNA) 00:00:00 [facility] SARS-COV-2 COVID-19 2021-04-18 Completed [facility] VACCINE - (MODERNA) 00:00:00 [facility] SARS-COV-2 COVID-19 2021-04-18 Completed [facility] VACCINE - (MODERNA) 00:00:00 [facility] SARS-COV-2 COVID-19 2021-04-18 Completed [facility] VACCINE - (MODERNA) 00:00:00 [facility] SARS-COV-2 COVID-19 2021-04-18 Completed [facility] VACCINE - (MODERNA) 00:00:00 [facility] SARS-COV-2 COVID-19 2021-04-18 Completed [facility] VACCINE - (MODERNA) 00:00:00 [facility] SARS-COV-2 COVID-19 2021-04-18 Completed [facility] VACCINE - (MODERNA) 00:00:00 [facility] SARS-COV-2 COVID-19 2021-04-18 Completed [facility] VACCINE - (MODERNA) 00:00:00 [facility] SARS-COV-2 COVID-19 2021-04-18 Completed [facility] VACCINE - (MODERNA) 00:00:00 [facility] SARS-COV-2 COVID-19 2021-04-18 Completed [facility] VACCINE - (MODERNA) 00:00:00 [facility] SARS-COV-2 COVID-19 2021-04-18 Completed [facility] VACCINE - (MODERNA) 00:00:00 [facility] SARS-COV-2 COVID-19 2021-04-18 Completed [facility] VACCINE - (MODERNA) 00:00:00 [facility] SARS-COV-2 COVID-19 2021-04-18 Completed [facility] VACCINE - (MODERNA) 00:00:00 [facility] SARS-COV-2 COVID-19 2021-04-18 Completed [facility] VACCINE - (MODERNA) 00:00:00 [facility] SARS-COV-2 COVID-19 2021-04-18 Completed [facility] VACCINE - (MODERNA) 00:00:00 [facility] SARS-COV-2 COVID-19 2021-04-18 Completed [facility] VACCINE - (MODERNA) 00:00:00 [facility] SARS-COV-2 COVID-19 2021-04-18 Completed [facility] VACCINE - (MODERNA) 00:00:00 [facility] SARS-COV-2 COVID-19 2021-04-18 Completed [facility] VACCINE - (MODERNA) 00:00:00 [facility] SARS-COV-2 COVID-19 2021-04-18 Completed [facility] VACCINE - (MODERNA) 00:00:00 [facility] SARS-COV-2 COVID-19 2021-04-18 Completed [facility] VACCINE - (MODERNA) 00:00:00 [facility] SARS-COV-2 COVID-19 2021-04-18 Completed [facility] VACCINE - (MODERNA) 00:00:00 [facility] SARS-COV-2 COVID-19 2021-04-18 Completed [facility] VACCINE - (MODERNA) 00:00:00 [facility] SARS-COV-2 COVID-19 2021-04-18 Completed [facility] VACCINE - (MODERNA) 00:00:00 [facility] SARS-COV-2 COVID-19 2021-04-18 Completed [facility] VACCINE - (MODERNA) 00:00:00 [facility] SARS-COV-2 COVID-19 2021-04-18 Completed [facility] VACCINE - (MODERNA) 00:00:00 [facility] SARS-COV-2 COVID-19 2021-04-18 Completed [facility] VACCINE - (MODERNA) 00:00:00 [facility] SARS-COV-2 COVID-19 2021-04-18 Completed [facility] VACCINE - (MODERNA) 00:00:00 [facility] SARS-COV-2 COVID-19 2021-04-18 Completed [facility] VACCINE - (MODERNA) 00:00:00 [facility] SARS-COV-2 COVID-19 2021-04-18 Completed [facility] VACCINE - (MODERNA) 00:00:00 [facility] SARS-COV-2 COVID-19 2021-04-18 Completed [facility] VACCINE - (MODERNA) 00:00:00 [facility] SARS-COV-2 COVID-19 2021-04-18 Completed [facility] VACCINE - (MODERNA) 00:00:00 [facility] SARS-COV-2 COVID-19 2021-04-18 Completed [facility] VACCINE - (MODERNA) 00:00:00 [facility] SARS-COV-2 COVID-19 2021-04-18 Completed [facility] VACCINE - (MODERNA) 00:00:00 [facility] SARS-COV-2 COVID-19 2021-04-18 Completed [facility] VACCINE - (MODERNA) 00:00:00 [facility] SARS-COV-2 COVID-19 2021-04-18 Completed [facility] VACCINE - (MODERNA) 00:00:00 [facility] SARS-COV-2 COVID-19 2021-04-18 Completed [facility] VACCINE - (MODERNA) 00:00:00 [facility] SARS-COV-2 COVID-19 2021-04-18 Completed [facility] VACCINE - (MODERNA) 00:00:00 [facility] SARS-COV-2 COVID-19 2021-04-18 Completed [facility] VACCINE - (MODERNA) 00:00:00 [facility] SARS-COV-2 COVID-19 2021-04-18 Completed [facility] VACCINE - (MODERNA) 00:00:00 [facility] SARS-COV-2 COVID-19 2021-04-18 Completed [facility] VACCINE - (MODERNA) 00:00:00 [facility] SARS-COV-2 COVID-19 2021-04-18 Completed [facility] VACCINE - (MODERNA) 00:00:00 [facility] SARS-COV-2 COVID-19 2021-04-18 Completed [facility] VACCINE - (MODERNA) 00:00:00 [facility] SARS-COV-2 COVID-19 2021-04-18 Completed [facility] VACCINE - (MODERNA) 00:00:00 [facility] SARS-COV-2 COVID-19 2021-04-18 Completed [facility] VACCINE - (MODERNA) 00:00:00 [facility] SARS-COV-2 COVID-19 2021-04-18 Completed [facility] VACCINE - (MODERNA) 00:00:00 [facility] SARS-COV-2 COVID-19 2021-04-18 Completed [facility] VACCINE - (MODERNA) 00:00:00 [facility] SARS-COV-2 COVID-19 2021-04-18 Completed [facility] VACCINE - (MODERNA) 00:00:00 [facility] SARS-COV-2 COVID-19 2021-04-18 Completed [facility] VACCINE - (MODERNA) 00:00:00 [facility] SARS-COV-2 COVID-19 2020-10-05 Completed [facility] MODERNA 12+ YRS 00:00:00 [facility] SARS-COV-2 COVID-19 2020-10-05 Completed [facility] MODERNA 12+ YRS 00:00:00 [facility] SARS-COV-2 COVID-19 2020-10-05 Completed [facility] MODERNA 12+ YRS 00:00:00 [facility] SARS-COV-2 COVID-19 2020-10-05 Completed [facility] MODERNA 12+ YRS 00:00:00 [facility] SARS-COV-2 COVID-19 2020-10-05 Completed [facility] MODERNA 12+ YRS 00:00:00 [facility] SARS-COV-2 COVID-19 2020-10-05 Completed [facility] MODERNA 12+ YRS 00:00:00 [facility] SARS-COV-2 COVID-19 2020-10-05 Completed [facility] MODERNA 12+ YRS 00:00:00 [facility] SARS-COV-2 COVID-19 2020-10-05 Completed [facility] MODERNA 12+ YRS 00:00:00 [facility] SARS-COV-2 COVID-19 2020-10-05 Completed [facility] MODERNA 12+ YRS 00:00:00 [facility] SARS-COV-2 COVID-19 2020-10-05 Completed [facility] MODERNA 12+ YRS 00:00:00 [facility] SARS-COV-2 COVID-19 2020-10-05 Completed [facility] MODERNA 12+ YRS 00:00:00 [facility] SARS-COV-2 COVID-19 2020-10-05 Completed [facility] MODERNA 12+ YRS 00:00:00 [facility] SARS-COV-2 COVID-19 2020-10-05 Completed [facility] MODERNA 12+ YRS 00:00:00 [facility] SARS-COV-2 COVID-19 2020-10-05 Completed [facility] MODERNA 12+ YRS 00:00:00 [facility] SARS-COV-2 COVID-19 2020-10-05 Completed [facility] MODERNA 12+ YRS 00:00:00 [facility] SARS-COV-2 COVID-19 2020-10-05 Completed [facility] MODERNA 12+ YRS 00:00:00 [facility] SARS-COV-2 COVID-19 2020-10-05 Completed [facility] MODERNA 12+ YRS 00:00:00 [facility] SARS-COV-2 COVID-19 2020-10-05 Completed [facility] MODERNA 12+ YRS 00:00:00 [facility] SARS-COV-2 COVID-19 2020-10-05 Completed [facility] MODERNA 12+ YRS 00:00:00 [facility] SARS-COV-2 COVID-19 2020-10-05 Completed [facility] MODERNA 12+ YRS 00:00:00 [facility] SARS-COV-2 COVID-19 2020-10-05 Completed [facility] MODERNA 12+ YRS 00:00:00 [facility] SARS-COV-2 COVID-19 2020-10-05 Completed [facility] MODERNA 12+ YRS 00:00:00 [facility] SARS-COV-2 COVID-19 2020-10-05 Completed [facility] MODERNA 12+ YRS 00:00:00 [facility] SARS-COV-2 COVID-19 2020-10-05 Completed [facility] MODERNA 12+ YRS 00:00:00 [facility] SARS-COV-2 COVID-19 2020-10-05 Completed [facility] MODERNA 12+ YRS 00:00:00 [facility] SARS-COV-2 COVID-19 2020-10-05 Completed [facility] MODERNA 12+ YRS 00:00:00 [facility] SARS-COV-2 COVID-19 2020-10-05 Completed [facility] MODERNA 12+ YRS 00:00:00 [facility] SARS-COV-2 COVID-19 2020-10-05 Completed [facility] MODERNA 12+ YRS 00:00:00 [facility] SARS-COV-2 COVID-19 2020-10-05 Completed [facility] MODERNA 12+ YRS 00:00:00 [facility] SARS-COV-2 COVID-19 2020-10-05 Completed [facility] MODERNA 12+ YRS 00:00:00 [facility] SARS-COV-2 COVID-19 2020-10-05 Completed [facility] MODERNA 12+ YRS 00:00:00 [facility] SARS-COV-2 COVID-19 2020-10-05 Completed [facility] MODERNA 12+ YRS 00:00:00 [facility] SARS-COV-2 COVID-19 2020-10-05 Completed [facility] MODERNA 12+ YRS 00:00:00 [facility] SARS-COV-2 COVID-19 2020-10-05 Completed [facility] MODERNA 12+ YRS 00:00:00 [facility] SARS-COV-2 COVID-19 2020-10-05 Completed [facility] MODERNA 12+ YRS 00:00:00 [facility] SARS-COV-2 COVID-19 2020-10-05 Completed [facility] MODERNA 12+ YRS 00:00:00 [facility] SARS-COV-2 COVID-19 2020-10-05 Completed [facility] of MODERNA 12+ YRS 00:00:00 [facility] SARS-COV-2 COVID-19 2020-10-05 Completed [facility] MODERNA 12+ YRS 00:00:00 [facility] SARS-COV-2 COVID-19 2020-10-05 Completed [facility] of MODERNA 12+ YRS 00:00:00 [facility] SARS-COV-2 COVID-19 2020-10-05 Completed [facility] of MODERNA 12+ YRS 00:00:00 [facility] SARS-COV-2 COVID-19 2020-10-05 Completed [facility] of MODERNA 12+ YRS 00:00:00 [facility] SARS-COV-2 COVID-19 2020-10-05 Completed [facility] of MODERNA 12+ YRS 00:00:00 [facility] SARS-COV-2 COVID-19 2020-10-05 Completed [facility] MODERNA 12+ YRS 00:00:00 [facility] SARS-COV-2 COVID-19 2020-10-05 Completed [facility] MODERNA 12+ YRS 00:00:00 [facility] SARS-COV-2 COVID-19 2020-10-05 Completed [facility] of MODERNA 12+ YRS 00:00:00 [facility] SARS-COV-2 COVID-19 2020-10-05 Completed [facility] of MODERNA 12+ YRS 00:00:00 [facility] SARS-COV-2 COVID-19 2020-10-05 Completed [facility] of MODERNA 12+ YRS 00:00:00 [facility] SARS-COV-2 COVID-19 2020-10-05 Completed [facility] of MODERNA 12+ YRS 00:00:00 [facility] SARS-COV-2 COVID-19 2020-10-05 Completed [facility] of MODERNA 12+ YRS 00:00:00 [facility] SARS-COV-2 COVID-19 2020-10-05 Completed [facility] of MODERNA 12+ YRS 00:00:00 [facility] SARS-COV-2 COVID-19 2020-10-05 Completed [facility] of MODERNA 12+ YRS 00:00:00 [facility] SARS-COV-2 COVID-19 2020-10-05 Completed [facility] of MODERNA 12+ YRS 00:00:00 [facility] SARS-COV-2 COVID-19 2020-10-05 Completed [facility] of MODERNA 12+ YRS 00:00:00 [facility] SARS-COV-2 COVID-19 2020-10-05 Completed [facility] of MODERNA 12+ YRS 00:00:00 [facility] SARS-COV-2 COVID-19 2020-10-05 Completed [facility] of MODERNA 12+ YRS 00:00:00 [facility] SARS-COV-2 COVID-19 2020-10-05 Completed [facility] MODERNA 12+ YRS 00:00:00 [facility] SARS-COV-2 COVID-19 2020-10-05 Completed [facility] of MODERNA 12+ YRS 00:00:00 [facility] SARS-COV-2 COVID-19 2020-10-05 Completed [facility] of MODERNA 12+ YRS 00:00:00 [facility] SARS-COV-2 COVID-19 2020-10-05 Completed [facility] of MODERNA 12+ YRS 00:00:00 [facility] SARS-COV-2 COVID-19 2020-10-05 Completed [facility] of MODERNA 12+ YRS 00:00:00 [facility] SARS-COV-2 COVID-19 2020-10-05 Completed [facility] MODERNA 12+ YRS 00:00:00 [facility] SARS-COV-2 COVID-19 2020-10-05 Completed [facility] of MODERNA 12+ YRS 00:00:00 [facility] SARS-COV-2 COVID-19 2020-10-05 Completed [facility] of MODERNA 12+ YRS 00:00:00 [facility] SARS-COV-2 COVID-19 2020-10-05 Completed [facility] of MODERNA 12+ YRS 00:00:00 [facility] SARS-COV-2 COVID-19 2020-10-05 Completed [facility] of MODERNA 12+ YRS 00:00:00 [facility] SARS-COV-2 COVID-19 2020-10-05 Completed [facility] of MODERNA 12+ YRS 00:00:00 [facility] SARS-COV-2 COVID-19 2020-10-05 Completed [facility] of MODERNA 12+ YRS 00:00:00 [facility] SARS-COV-2 COVID-19 2020-10-05 Completed [facility] of MODERNA 12+ YRS 00:00:00 [facility] SARS-COV-2 COVID-19 2020-10-05 Completed [facility] of MODERNA 12+ YRS 00:00:00 [facility] SARS-COV-2 COVID-19 2020-10-05 Completed [facility] of MODERNA 12+ YRS 00:00:00 [facility] SARS-COV-2 COVID-19 2020-10-05 Completed [facility] of MODERNA 12+ YRS 00:00:00 [facility] SARS-COV-2 COVID-19 2020-10-05 Completed [facility] of MODERNA 12+ YRS 00:00:00 [facility] SARS-COV-2 COVID-19 2020-10-05 Completed [facility] of MODERNA 12+ YRS 00:00:00 [facility] SARS-COV-2 COVID-19 2020-10-05 Completed [facility] 12+ YRS 00:00:00 [place] [facility] SARS-COV-2 COVID-19 2020-10-05 Completed [facility] 12+ YRS 00:00:00 [place] [facility] SARS-COV-2 COVID-19 2020-10-05 Completed [facility] 12+ YRS 00:00:00 [place] [facility] SARS-COV-2 COVID-19 2020-08-30 Completed [facility] 12+ YRS 00:00:00 [place] [facility] SARS-COV-2 COVID-19 2020-08-30 Completed [facility] 12+ YRS 00:00:00 [place] [facility] SARS-COV-2 COVID-19 2020-08-30 Completed [facility] 12+ YRS 00:00:00 [place] [facility] SARS-COV-2 COVID-19 2020-08-30 Completed [facility] 12+ YRS 00:00:00 [place] [facility] SARS-COV-2 COVID-19 2020-08-30 Completed [facility] 12+ YRS 00:00:00 [place] [facility] SARS-COV-2 COVID-19 2020-08-30 Completed [facility] 12+ YRS 00:00:00 [place] [facility] SARS-COV-2 COVID-19 2020-08-30 Completed [facility] 12+ YRS 00:00:00 [place] [facility] SARS-COV-2 COVID-19 2020-08-30 Completed [facility] 12+ YRS 00:00:00 [place] [facility] SARS-COV-2 COVID-19 2020-08-30 Completed [facility] 12+ YRS 00:00:00 [place] [facility] SARS-COV-2 COVID-19 2020-08-30 Completed [facility] 12+ YRS 00:00:00 [place] [facility] SARS-COV-2 COVID-19 2020-08-30 Completed [facility] 12+ YRS 00:00:00 [place] [facility] SARS-COV-2 COVID-19 2020-08-30 Completed [facility] 12+ YRS 00:00:00 [place] [facility] SARS-COV-2 COVID-19 2020-08-30 Completed [facility] 12+ YRS 00:00:00 [place] [facility] SARS-COV-2 COVID-19 2020-08-30 Completed [facility] 12+ YRS 00:00:00 [place] [facility] SARS-COV-2 COVID-19 2020-08-30 Completed [facility] 12+ YRS 00:00:00 [place] [facility] SARS-COV-2 COVID-19 2020-08-30 Completed [facility] 12+ YRS 00:00:00 [place] [facility] SARS-COV-2 COVID-19 2020-08-30 Completed [facility] 12+ YRS 00:00:00 [place] [facility] SARS-COV-2 COVID-19 2020-08-30 Completed [facility] 12+ YRS 00:00:00 [place] [facility] SARS-COV-2 COVID-19 2020-08-30 Completed [facility] 12+ YRS 00:00:00 [place] [facility] SARS-COV-2 COVID-19 2020-08-30 Completed [facility] 12+ YRS 00:00:00 [place] [facility] SARS-COV-2 COVID-19 2020-08-30 Completed [facility] 12+ YRS 00:00:00 [place] [facility] SARS-COV-2 COVID-19 2020-08-30 Completed [facility] 12+ YRS 00:00:00 [place] [facility] SARS-COV-2 COVID-19 2020-08-30 Completed [facility] 12+ YRS 00:00:00 [facility] SARS-COV-2 COVID-19 2020-08-30 Completed [facility] 12+ YRS 00:00:00 [place] [facility] SARS-COV-2 COVID-19 2020-08-30 Completed [facility] 12+ YRS 00:00:00 [place] [facility] SARS-COV-2 COVID-19 2020-08-30 Completed [facility] 12+ YRS 00:00:00 [place] [facility] SARS-COV-2 COVID-19 2020-08-30 Completed [facility] 12+ YRS 00:00:00 [place] [facility] SARS-COV-2 COVID-19 2020-08-30 Completed [facility] 12+ YRS 00:00:00 [place] [facility] SARS-COV-2 COVID-19 2020-08-30 Completed [facility] 12+ YRS 00:00:00 [place] [facility] SARS-COV-2 COVID-19 2020-08-30 Completed [facility] 12+ YRS 00:00:00 [place] [facility] SARS-COV-2 COVID-19 2020-08-30 Completed [facility] 12+ YRS 00:00:00 [place] [facility] SARS-COV-2 COVID-19 2020-08-30 Completed [facility] 12+ YRS 00:00:00 [place] [facility] SARS-COV-2 COVID-19 2020-08-30 Completed [facility] 12+ YRS 00:00:00 [place] [facility] SARS-COV-2 COVID-19 2020-08-30 Completed [facility] 12+ YRS 00:00:00 [place] [facility] SARS-COV-2 COVID-19 2020-08-30 Completed [facility] 12+ YRS 00:00:00 [place] [facility] SARS-COV-2 COVID-19 2020-08-30 Completed [facility] 12+ YRS 00:00:00 [place] [facility] SARS-COV-2 COVID-19 2020-08-30 Completed [facility] 12+ YRS 00:00:00 [place] [facility] SARS-COV-2 COVID-19 2020-08-30 Completed [facility] 12+ YRS 00:00:00 [place] [facility] SARS-COV-2 COVID-19 2020-08-30 Completed [facility] 12+ YRS 00:00:00 [place] [facility] SARS-COV-2 COVID-19 2020-08-30 Completed [facility] 12+ YRS 00:00:00 [place] [facility] SARS-COV-2 COVID-19 2020-08-30 Completed [facility] 12+ YRS 00:00:00 [place] [facility] SARS-COV-2 COVID-19 2020-08-30 Completed [facility] 12+ YRS 00:00:00 [place] [facility] SARS-COV-2 COVID-19 2020-08-30 Completed [facility] 12+ YRS 00:00:00 [place] [facility] SARS-COV-2 COVID-19 2020-08-30 Completed [facility] 12+ YRS 00:00:00 [place] [facility] SARS-COV-2 COVID-19 2020-08-30 Completed [facility] 12+ YRS 00:00:00 [place] [facility] SARS-COV-2 COVID-19 2020-08-30 Completed [facility] 12+ YRS 00:00:00 [place] [facility] SARS-COV-2 COVID-19 2020-08-30 Completed [facility] 12+ YRS 00:00:00 [place] [facility] SARS-COV-2 COVID-19 2020-08-30 Completed [facility] 12+ YRS 00:00:00 [place] [facility] SARS-COV-2 COVID-19 2020-08-30 Completed [facility] 12+ YRS 00:00:00 [place] [facility] SARS-COV-2 COVID-19 2020-08-30 Completed [facility] 12+ YRS 00:00:00 [place] [facility] SARS-COV-2 COVID-19 2020-08-30 Completed [facility] 12+ YRS 00:00:00 [place] [facility] SARS-COV-2 COVID-19 2020-08-30 Completed [facility] 12+ YRS 00:00:00 [place] [facility] SARS-COV-2 COVID-19 2020-08-30 Completed [facility] 12+ YRS 00:00:00 [place] [facility] SARS-COV-2 COVID-19 2020-08-30 Completed [facility] 12+ YRS 00:00:00 [place] [facility] SARS-COV-2 COVID-19 2020-08-30 Completed [facility] 12+ YRS 00:00:00 [facility] SARS-COV-2 COVID-19 2020-08-30 Completed [facility] 12+ YRS 00:00:00 [facility] SARS-COV-2 COVID-19 2020-08-30 Completed [facility] 12+ YRS 00:00:00 [place] [facility] SARS-COV-2 COVID-19 2020-08-30 Completed [facility] 12+ YRS 00:00:00 [place] [facility] SARS-COV-2 COVID-19 2020-08-30 Completed [facility] 12+ YRS 00:00:00 [place] [facility] SARS-COV-2 COVID-19 2020-08-30 Completed [facility] 12+ YRS 00:00:00 [place] [facility] SARS-COV-2 COVID-19 2020-08-30 Completed [facility] 12+ YRS 00:00:00 [place] [facility] SARS-COV-2 COVID-19 2020-08-30 Completed [facility] 12+ YRS 00:00:00 [place] [facility] SARS-COV-2 COVID-19 2020-08-30 Completed [facility] 12+ YRS 00:00:00 [place] [facility] SARS-COV-2 COVID-19 2020-08-30 Completed [facility] 12+ YRS 00:00:00 [place] [facility] SARS-COV-2 COVID-19 2020-08-30 Completed [facility] 12+ YRS 00:00:00 [place] [facility] SARS-COV-2 COVID-19 2020-08-30 Completed [facility] 12+ YRS 00:00:00 [place] [facility] SARS-COV-2 COVID-19 2020-08-30 Completed [facility] 12+ YRS 00:00:00 [place] [facility] SARS-COV-2 COVID-19 2020-08-30 Completed [facility] 12+ YRS 00:00:00 [place] [facility] SARS-COV-2 COVID-19 2020-08-30 Completed [facility] 12+ YRS 00:00:00 [place] [facility] SARS-COV-2 COVID-19 2020-08-30 Completed [facility]ERNA 12+ YRS 00:00:00 [place] [facility] SARS-COV-2 COVID-19 2020-08-30 Completed [facility]NA 12+ YRS 00:00:00 [place] [facility] SARS-COV-2 COVID-19 2020-08-30 Completed [facility]ER[facility] 12+ YRS 00:00:00 [place] [facility] SARS-COV-2 COVID-19 2020-08-30 Completed [facility]NA 12+ YRS 00:00:00 [place] [facility] SARS-COV-2 COVID-19 2020-08-30 Completed [facility] 12+ YRS 00:00:00 [place] [facility] SARS-COV-2 COVID-19 2020-08-30 Completed [facility]ERNA 12+ YRS 00:00:00 [place] [facility] SARS-COV-2 COVID-19 2020-08-30 Completed [facility] 12+ YRS 00:00:00 [place] [facility] Pneumococcal 2020-07-30 Completed [facility] Polys[facility], 00:00:00 [place] [facility] PPSV23 (PNEUMOVAX) [facility] Pneumococcal 2020-07-30 Completed [facility] Polys[facility], 00:00:00 [place] [facility] PPSV23 (PNEUMOVAX) [facility] Pneumococcal 2020-07-30 Completed [facility] Polysaccharide, 00:00:00 [place] [facility] PPSV23 (PNEUMOVAX) [facility] Pneumococcal 2020-07-30 Completed [facility] Polysaccharide, 00:00:00 [place] [facility] PPSV23 (PNEUMOVAX) [facility] Pneumococcal 2020-07-30 Completed [facility] Polysaccharide, 00:00:00 [place] [facility] PPSV23 (PNEUMOVAX) [facility] Pneumococcal 2020-07-30 Completed [facility] Polysaccharide, 00:00:00 [place] [facility] PPSV23 (PNEUMOVAX) [facility] Pneumococcal 2020-07-30 Completed [facility] Polysaccharide, 00:00:00 [place] [facility] PPSV23 (PNEUMOVAX) [facility] Pneumococcal 2020-07-30 Completed [facility] Polysaccharide, 00:00:00 [place] [facility] PPSV23 (PNEUMOVAX) [facility] Pneumococcal 2020-07-30 Completed [facility] Polysaccharide, 00:00:00 [place] [facility] PPSV23 (PNEUMOVAX) [facility] Pneumococcal 2020-07-30 Completed [facility] Polysaccharide, 00:00:00 [place] [facility] PPSV23 (PNEUMOVAX) [facility] Pneumococcal 2020-07-30 Completed [facility] Polysaccharide, 00:00:00 [place] [facility] PPSV23 (PNEUMOVAX) [facility] Pneumococcal 2020-07-30 Completed [facility] Polysaccharide, 00:00:00 [place] [facility] PPSV23 (PNEUMOVAX) [facility] Pneumococcal 2020-07-30 Completed [facility] Polysaccharide, 00:00:00 [place] [facility] PPSV23 (PNEUMOVAX) [facility] Pneumococcal 2020-07-30 Completed [facility] Polysaccharide, 00:00:00 [place] [facility] PPSV23 (PNEUMOVAX) [facility] Pneumococcal 2020-07-30 Completed [facility] Polysaccharide, 00:00:00 [place] [facility] PPSV23 (PNEUMOVAX) [facility] Pneumococcal 2020-07-30 Completed [facility] Polysaccharide, 00:00:00 [place] [facility] PPSV23 (PNEUMOVAX) [facility] Pneumococcal 2020-07-30 Completed [facility] Polysaccharide, 00:00:00 [place] [facility] PPSV23 (PNEUMOVAX) [facility] Pneumococcal 2020-07-30 Completed [facility] Polysaccharide, 00:00:00 [place] [facility] PPSV23 (PNEUMOVAX) [facility] Pneumococcal 2020-07-30 Completed [facility] Polysaccharide, 00:00:00 [place] [facility] PPSV23 (PNEUMOVAX) [facility] Pneumococcal 2020-07-30 Completed [facility] Polysaccharide, 00:00:00 [place] [facility] PPSV23 (PNEUMOVAX) [facility] Pneumococcal 2020-07-30 Completed [facility] Polysaccharide, 00:00:00 [place] [facility] PPSV23 (PNEUMOVAX) [facility] Pneumococcal 2020-07-30 Completed [facility] Polysaccharide, 00:00:00 [place] [facility] PPSV23 (PNEUMOVAX) [facility] Pneumococcal 2020-07-30 Completed [facility] Polysaccharide, 00:00:00 [place] [facility] PPSV23 (PNEUMOVAX) [facility] Pneumococcal 2020-07-30 Completed [facility] Polysaccharide, 00:00:00 [place] [facility] PPSV23 (PNEUMOVAX) [facility] Pneumococcal 2020-07-30 Completed [facility] Polysaccharide, 00:00:00 [place] [facility] PPSV23 (PNEUMOVAX) [facility] Pneumococcal 2020-07-30 Completed [facility] Polysaccharide, 00:00:00 [place] [facility] PPSV23 (PNEUMOVAX) [facility] Pneumococcal 2020-07-30 Completed [facility] Polysaccharide, 00:00:00 [place] [facility] PPSV23 (PNEUMOVAX) [facility] Pneumococcal 2020-07-30 Completed [facility] Polysaccharide, 00:00:00 [place] [facility] PPSV23 (PNEUMOVAX) [facility] Pneumococcal 2020-07-30 Completed [facility] Polysaccharide, 00:00:00 [place] [facility] PPSV23 (PNEUMOVAX) [facility] Pneumococcal 2020-07-30 Completed [facility] Polysaccharide, 00:00:00 [place] [facility] PPSV23 (PNEUMOVAX) [facility] Pneumococcal 2020-07-30 Completed [facility] Polysaccharide, 00:00:00 [place] [facility] PPSV23 (PNEUMOVAX) [facility] Pneumococcal 2020-07-30 Completed [facility] Polysaccharide, 00:00:00 [place] [facility] PPSV23 (PNEUMOVAX) [facility] Pneumococcal 2020-07-30 Completed [facility] Polysaccharide, 00:00:00 [place] [facility] PPSV23 (PNEUMOVAX) [facility] Pneumococcal 2020-07-30 Completed [facility] Polysaccharide, 00:00:00 [place] [facility] PPSV23 (PNEUMOVAX) [facility] Pneumococcal 2020-07-30 Completed [facility] Polysaccharide, 00:00:00 [place] [facility] PPSV23 (PNEUMOVAX) [facility] Pneumococcal 2020-07-30 Completed [facility] Polysaccharide, 00:00:00 [place] [facility] PPSV23 (PNEUMOVAX) [facility] Pneumococcal 2020-07-30 Completed [facility] Polysaccharide, 00:00:00 [place] [facility] PPSV23 (PNEUMOVAX) [facility] Pneumococcal 2020-07-30 Completed [facility] Polysaccharide, 00:00:00 [place] [facility] PPSV23 (PNEUMOVAX) [facility] Pneumococcal 2020-07-30 Completed [facility] Polysaccharide, 00:00:00 [place] [facility] PPSV23 (PNEUMOVAX) [facility] Pneumococcal 2020-07-30 Completed [facility] Polysaccharide, 00:00:00 [place] [facility] PPSV23 (PNEUMOVAX) [facility] Pneumococcal 2020-07-30 Completed [facility] Polysaccharide, 00:00:00 [place] [facility] PPSV23 (PNEUMOVAX) [facility] Pneumococcal 2020-07-30 Completed [facility] Polysaccharide, 00:00:00 [place] [facility] PPSV23 (PNEUMOVAX) [facility] Pneumococcal 2020-07-30 Completed [facility] Polysaccharide, 00:00:00 [place] [facility] PPSV23 (PNEUMOVAX) Branch Pneumococcal 2020-07-30 Completed [facility] Polysaccharide, 00:00:00 [place] [facility] PPSV23 (PNEUMOVAX) Branch Pneumococcal 2020-07-30 Completed [facility] Polysaccharide, 00:00:00 [place] [facility] PPSV23 (PNEUMOVAX) Branch Pneumococcal 2020-07-30 Completed [facility] Polysaccharide, 00:00:00 [place] [facility] PPSV23 (PNEUMOVAX) Branch Pneumococcal 2020-07-30 Completed [facility] Polysaccharide, 00:00:00 [place] [facility] PPSV23 (PNEUMOVAX) Branch Pneumococcal 2020-07-30 Completed [facility] Polysaccharide, 00:00:00 [place] [facility] PPSV23 (PNEUMOVAX) Branch Pneumococcal 2020-07-30 Completed [facility] Polysaccharide, 00:00:00 [place] [facility] PPSV23 (PNEUMOVAX) Branch Pneumococcal 2020-07-30 Completed [facility] Polysaccharide, 00:00:00 [place] [facility] PPSV23 (PNEUMOVAX) Branch Pneumococcal 2020-07-30 Completed [facility] Polysaccharide, 00:00:00 [place] [facility] PPSV23 (PNEUMOVAX) Branch Pneumococcal 2020-07-30 Completed [facility] Polysaccharide, 00:00:00 [place] [facility] PPSV23 (PNEUMOVAX) Branch Pneumococcal 2020-07-30 Completed [facility] Polysaccharide, 00:00:00 [place] [facility] PPSV23 (PNEUMOVAX) Branch Pneumococcal 2020-07-30 Completed [facility] Polysaccharide, 00:00:00 [place] [facility] PPSV23 (PNEUMOVAX) Branch Pneumococcal 2020-07-30 Completed [facility] Polysaccharide, 00:00:00 [place] [facility] PPSV23 (PNEUMOVAX) Branch Pneumococcal 2020-07-30 Completed [facility] Polysaccharide, 00:00:00 [place] [facility] PPSV23 (PNEUMOVAX) Branch Pneumococcal 2020-07-30 Completed [facility] Polysaccharide, 00:00:00 [place] [facility] PPSV23 (PNEUMOVAX) Branch Pneumococcal 2020-07-30 Completed [facility] Polysaccharide, 00:00:00 [place] [facility] PPSV23 (PNEUMOVAX) Branch Pneumococcal 2020-07-30 Completed [facility] Polysaccharide, 00:00:00 [place] [facility] PPSV23 (PNEUMOVAX) Branch Pneumococcal 2020-07-30 Completed [facility] Polysaccharide, 00:00:00 [place] [facility] PPSV23 (PNEUMOVAX) Branch Pneumococcal 2020-07-30 Completed [facility] Polysaccharide, 00:00:00 [place] [facility] PPSV23 (PNEUMOVAX) Branch Pneumococcal 2020-07-30 Completed [facility] Polysaccharide, 00:00:00 [place] [facility] PPSV23 (PNEUMOVAX) Branch Pneumococcal 2020-07-30 Completed [facility] Polysaccharide, 00:00:00 [place] [facility] PPSV23 (PNEUMOVAX) Branch Pneumococcal 2020-07-30 Completed [facility] Polysaccharide, 00:00:00 [place] [facility] PPSV23 (PNEUMOVAX) Branch Pneumococcal 2020-07-30 Completed [facility] Polysaccharide, 00:00:00 [place] [facility] PPSV23 (PNEUMOVAX) Branch Pneumococcal 2020-07-30 Completed [facility] Polysaccharide, 00:00:00 [place] [facility] PPSV23 (PNEUMOVAX) Branch Pneumococcal 2020-07-30 Completed [facility] Polysaccharide, 00:00:00 [place] [facility] PPSV23 (PNEUMOVAX) Branch Pneumococcal 2020-07-30 Completed [facility] Polysaccharide, 00:00:00 [place] [facility] PPSV23 (PNEUMOVAX) Branch Pneumococcal 2020-07-30 Completed [facility] Polysaccharide, 00:00:00 [place] [facility] PPSV23 (PNEUMOVAX) Branch Pneumococcal 2020-07-30 Completed [facility] Polysaccharide, 00:00:00 [place] [facility] PPSV23 (PNEUMOVAX) Branch Pneumococcal 2020-07-30 Completed [facility] Polysaccharide, 00:00:00 [place] [facility] PPSV23 (PNEUMOVAX) Branch Pneumococcal 2020-07-30 Completed [facility] Polysaccharide, 00:00:00 [place] [facility] PPSV23 (PNEUMOVAX) Branch Pneumococcal 2020-07-30 Completed [facility] Polysaccharide, 00:00:00 [place] [facility] PPSV23 (PNEUMOVAX) Branch Pneumococcal 2020-07-30 Completed [facility] Polysaccharide, 00:00:00 [place] [facility] PPSV23 (PNEUMOVAX) Branch Pneumococcal 2020-07-30 Completed [facility] Polysaccharide, 00:00:00 [place] [facility] PPSV23 (PNEUMOVAX) Branch Pneumococcal 2020-07-30 Completed [facility] Polysaccharide, 00:00:00 [place] [facility] PPSV23 (PNEUMOVAX) [facility] Kenalog Kenalog 2019-10-12 Completed [facility] - (Triamcinolone) (Triamcinolone) 10:00:00 [facility] Kenalog Kenalog 2019-10-12 Completed [facility] - (Triamcinolone) (Triamcinolone) 10:00:00 [facility] Kenalog Kenalog 2019-10-12 Completed [facility] - (Triamcinolone) (Triamcinolone) 10:00:00 [facility] Kenalog Kenalog 2019-10-12 Completed [facility] - (Triamcinolone) (Triamcinolone) 10:00:00 [facility] Bupivicaine Old Lyme Bupivicaine Old Lyme 2019-10-12 Completed [facility] - 09:59:00 [facility] Bupivicaine Old Lyme Bupivicaine Old Lyme 2019-10-12 Completed [facility] - 09:59:00 [facility] Bupivicaine Old Lyme Bupivicaine Old Lyme 2019-10-12 Completed [facility] - 09:59:00 [facility] Bupivicaine Old Lyme Bupivicaine Old Lyme 2019-10-12 Completed [facility] - 09:59:00 [facility] Influenza Virus 2019-04-27 Completed [facility]ine 00:00:00 [facility] Influenza Virus 2019-04-27 Completed [facility] Vaccine 00:00:00 [facility] Influenza Virus 2019-04-27 Completed [facility] Vaccine 00:00:00 [facility] Influenza Virus 2019-04-27 Completed [facility] Vaccine 00:00:00 [facility] Influenza Virus 2019-04-27 Completed [facility] Vaccine 00:00:00 [facility] Influenza Virus 2019-04-27 Completed [facility] Vaccine 00:00:00 [facility] Influenza Virus 2019-04-27 Completed [facility] Vaccine 00:00:00 [facility] Influenza Virus 2019-04-27 Completed [facility] Vaccine 00:00:00 [facility] Influenza Virus 2019-04-27 Completed [facility] Vaccine 00:00:00 [facility] Influenza Virus 2019-04-27 Completed [facility] Vaccine 00:00:00 [facility] Influenza Virus 2019-04-27 Completed [facility] Vaccine 00:00:00 [facility] Influenza Virus 2019-04-27 Completed [facility] Vaccine 00:00:00 [facility] Influenza Virus 2019-04-27 Completed [facility] Vaccine 00:00:00 [facility] Influenza Virus 2019-04-27 Completed [facility] Vaccine 00:00:00 [facility] Influenza Virus 2019-04-27 Completed [facility] Vaccine 00:00:00 [facility] Influenza Virus 2019-04-27 Completed [facility] Vaccine 00:00:00 [facility] Influenza Virus 2019-04-27 Completed [facility] Vaccine 00:00:00 [facility] Influenza Virus 2019-04-27 Completed [facility] Vaccine 00:00:00 [facility] Influenza Virus 2019-04-27 Completed [facility] Vaccine 00:00:00 [facility] Influenza Virus 2019-04-27 Completed [facility] Vaccine 00:00:00 [facility] Influenza Virus 2019-04-27 Completed [facility] Vaccine 00:00:00 [facility] Influenza Virus 2019-04-27 Completed [facility] Vaccine 00:00:00 [facility] Influenza Virus 2019-04-27 Completed [facility] Vaccine 00:00:00 [facility] Influenza Virus 2019-04-27 Completed [facility] Vaccine 00:00:00 [facility] Influenza Virus 2019-04-27 Completed [facility] Vaccine 00:00:00 [facility] Influenza Virus 2019-04-27 Completed [facility] Vaccine 00:00:00 [facility] Influenza Virus 2019-04-27 Completed [facility] Vaccine 00:00:00 [facility] Influenza Virus 2019-04-27 Completed [facility] Vaccine 00:00:00 [facility] Influenza Virus 2019-04-27 Completed [facility] Vaccine 00:00:00 [facility] Influenza Virus 2019-04-27 Completed [facility] Vaccine 00:00:00 [facility] Influenza Virus 2019-04-27 Completed [facility] Vaccine 00:00:00 [facility] Influenza Virus 2019-04-27 Completed [facility] Vaccine 00:00:00 [facility] Influenza Virus 2019-04-27 Completed [facility] Vaccine 00:00:00 [facility] Influenza Virus 2019-04-27 Completed [facility] Vaccine 00:00:00 [facility] Influenza Virus 2019-04-27 Completed [facility] Vaccine 00:00:00 [facility] Influenza Virus 2019-04-27 Completed [facility] Vaccine 00:00:00 [facility] Influenza Virus 2019-04-27 Completed [facility] Vaccine 00:00:00 [facility] Influenza Virus 2019-04-27 Completed [facility] Vaccine 00:00:00 [facility] Influenza Virus 2019-04-27 Completed [facility] Vaccine 00:00:00 [facility] Influenza Virus 2019-04-27 Completed [facility] Vaccine 00:00:00 [facility] Influenza Virus 2019-04-27 Completed [facility] Vaccine 00:00:00 [facility] Influenza Virus 2019-04-27 Completed [facility] Vaccine 00:00:00 [facility] Influenza Virus 2019-04-27 Completed [facility] Vaccine 00:00:00 [facility] Influenza Virus 2019-04-27 Completed [facility] Vaccine 00:00:00 [facility] Influenza Virus 2019-04-27 Completed [facility] Vaccine 00:00:00 [facility] Influenza Virus 2019-04-27 Completed [facility] Vaccine 00:00:00 [facility] Influenza Virus 2019-04-27 Completed [facility] Vaccine 00:00:00 [facility] Influenza Virus 2019-04-27 Completed [facility] Vaccine 00:00:00 [facility] Influenza Virus 2019-04-27 Completed [facility] Vaccine 00:00:00 [facility] Influenza Virus 2019-04-27 Completed [facility] Vaccine 00:00:00 [facility] Influenza Virus 2019-04-27 Completed [facility] Vaccine 00:00:00 [facility] Influenza Virus 2019-04-27 Completed [facility] Vaccine 00:00:00 [facility] Influenza Virus 2019-04-27 Completed [facility] Vaccine 00:00:00 [facility] Influenza Virus 2019-04-27 Completed [facility] Vaccine 00:00:00 [facility] Influenza Virus 2019-04-27 Completed [facility] Vaccine 00:00:00 [facility] Influenza Virus 2019-04-27 Completed [facility] Vaccine 00:00:00 [facility] Influenza Virus 2019-04-27 Completed [facility] Vaccine 00:00:00 [facility] Influenza Virus 2019-04-27 Completed [facility] Vaccine 00:00:00 [facility] Influenza Virus 2019-04-27 Completed [facility] Vaccine 00:00:00 [facility] Influenza Virus 2019-04-27 Completed [facility] Vaccine 00:00:00 [facility] Influenza Virus 2019-04-27 Completed [facility] of Vaccine 00:00:00 [facility] Influenza Virus 2019-04-27 Completed [facility] Vaccine 00:00:00 [facility] Influenza Virus 2019-04-27 Completed [facility] Vaccine 00:00:00 [facility] Influenza Virus 2019-04-27 Completed [facility] of Vaccine 00:00:00 [facility] Influenza Virus 2019-04-27 Completed [facility] of Vaccine 00:00:00 [facility] Influenza Virus 2019-04-27 Completed [facility] y of Vaccine 00:00:00 [facility] Influenza Virus 2019-04-27 Completed [facility] y of Vaccine 00:00:00 [facility] Influenza Virus 2019-04-27 Completed [facility] Vaccine 00:00:00 [facility] Influenza Virus 2019-04-27 Completed [facility] of Vaccine 00:00:00 [facility] Influenza Virus 2019-04-27 Completed [facility] of Vaccine 00:00:00 [facility] Influenza Virus 2019-04-27 Completed [facility] y of Vaccine 00:00:00 [facility] Influenza Virus 2019-04-27 Completed [facility] of Vaccine 00:00:00 [facility] Influenza Virus 2019-04-27 Completed [facility] of Vaccine 00:00:00 [facility] Influenza Virus 2019-04-27 Completed [facility] of Vaccine 00:00:00 [facility] Influenza Virus 2019-04-27 Completed [facility] of Vaccine 00:00:00 [facility] Influenza Virus 2019-04-27 Completed [facility] Vaccine 00:00:00 [facility] Kenalog Kenalog 2018-10-11 Completed [facility] (Triam[facility]olone) (Triamcinolone) 14:49:00 [facility] Kenalog Kenalog 2018-10-11 Completed [facility] - (Triamcinolone) (Triamcinolone) 14:49:00 [facility] Kenalog Kenalog 2018-10-11 Completed [facility] - (Triamcinolone) (Triamcinolone) 14:49:00 [facility] Kenalog Kenalog 2018-10-11 Completed [facility] - (Triamcinolone) (Triamcinolone) 14:49:00 [facility] LIDOCAINE HCL LIDOCAINE HCL 2018-10-11 Completed [facility] - 10MG/ML 10MG/ML 14:48:00 [facility] LIDOCAINE HCL LIDOCAINE HCL 2018-10-11 Completed [facility] - 10MG/ML 10MG/ML 14:48:00 [facility] LIDOCAINE HCL LIDOCAINE HCL 2018-10-11 Completed [facility] - 10MG/ML 10MG/ML 14:48:00 [facility] LIDOCAINE HCL LIDOCAINE HCL 2018-10-11 Completed [facility] - 10MG/ML 10MG/ML 14:48:00 [facility] Hyalgan 20 mg Hyalgan 20 mg 2018-06-28 Completed [facility] - 11:19:00 [facility] Hyalgan 20 mg Hyalgan 20 mg 2018-06-28 Completed [facility] - 11:19:00 [facility] Hyalgan 20 mg Hyalgan 20 mg 2018-06-28 Completed [facility] - 11:19:00 [facility] Hyalgan 20 mg Hyalgan 20 mg 2018-06-28 Completed [facility] - 11:19:00 [facility] Hyalgan 20 mg Hyalgan 20 mg 2018-06-21 Completed [facility] - 11:12:00 [facility] Hyalgan 20 mg Hyalgan 20 mg 2018-06-21 Completed [facility] - 11:12:00 [facility] Hyalgan 20 mg Hyalgan 20 mg 2018-06-21 Completed [facility] - 11:12:00 [facility] Hyalgan 20 mg Hyalgan 20 mg 2018-06-21 Completed [facility] - 11:12:00 [facility] Hyalgan 20 mg Hyalgan 20 mg 2018-06-21 Completed [facility] - 11:10: [facility] Hyalgan 20 mg Hyalgan 20 mg 2018-06-21 Completed [facility] - 11:10: [facility] Hyalgan 20 mg Hyalgan 20 mg 2018-06-21 Completed [facility] - 11:10: [facility] Hyalgan 20 mg Hyalgan 20 mg 2018-06-21 Completed [facility] - 11:10: [facility] Hyalgan 20 mg Hyalgan 20 mg 2018-06-14 Completed [facility] - 11:11: [facility] Hyalgan 20 mg Hyalgan 20 mg 2018-06-14 Completed [facility] - 11:11: [facility] Hyalgan 20 mg Hyalgan 20 mg 2018-06-14 Completed [facility] - 11:11: [facility] Hyalgan 20 mg Hyalgan 20 mg 2018-06-14 Completed [facility] - 11:11: [facility] Hyalgan 20 mg Hyalgan 20 mg 2018-06-14 Completed [facility] - 11:08: [facility] Hyalgan 20 mg Hyalgan 20 mg 2018-06-14 Completed [facility] - 11:08: [facility] Hyalgan 20 mg Hyalgan 20 mg 2018-06-14 Completed [facility] - 11:08: [facility] Hyalgan 20 mg Hyalgan 20 mg 2018-06-14 Completed [facility] - 11:08:00 [facility] Betamethasone Betamethasone 2018-05-16 Completed [facility] - Sodium Phosphate Sodium Phosphate 10:52:00 [facility] LIDOCAINE HCL LIDOCAINE HCL 2018-05-16 Completed [facility] - 10MG/ML 10MG/ML 10:52:00 [facility] Betamethasone Betamethasone 2018-05-16 Completed [facility] - Sodium Phosphate Sodium Phosphate 10:52:00 [facility] LIDOCAINE HCL LIDOCAINE HCL 2018-05-16 Completed [facility] - 10MG/ML 10MG/ML 10:52:00 [facility] Betamethasone Betamethasone 2018-05-16 Completed [facility] - Sodium Phosphate Sodium Phosphate 10:52:00 [facility] LIDOCAINE HCL LIDOCAINE HCL 2018-05-16 Completed [facility] - 10MG/ML 10MG/ML 10:52:00 [facility] Betamethasone Betamethasone 2018-05-16 Completed [facility] - Sodium Phosphate Sodium Phosphate 10:52:00 [facility] LIDOCAINE HCL LIDOCAINE HCL 2018-05-16 Completed [facility] - 10MG/ML 10MG/ML 10:52:00 [facility] Betamethasone Betamethasone 2018-04-28 Completed [facility] - Sodium Phosphate Sodium Phosphate 09:31:00 [facility] LIDOCAINE HCL LIDOCAINE HCL 2018-04-28 Completed [facility] - 10MG/ML 10MG/ML 09:31:00 [facility] Betamethasone Betamethasone 2018-04-28 Completed [facility] - Sodium Phosphate Sodium Phosphate 09:31:00 [facility] LIDOCAINE HCL LIDOCAINE HCL 2018-04-28 Completed [facility] - 10MG/ML 10MG/ML 09:31:00 [facility] Betamethasone Betamethasone 2018-04-28 Completed [facility] - Sodium Phosphate Sodium Phosphate 09:31:00 [facility] LIDOCAINE HCL LIDOCAINE HCL 2018-04-28 Completed [facility] - 10MG/ML 10MG/ML 09:31:00 [facility] Betamethasone Betamethasone 2018-04-28 Completed [facility] - Sodium Phosphate Sodium Phosphate 09:31:00 [facility] LIDOCAINE HCL LIDOCAINE HCL 2018-04-28 Completed [facility] - 10MG/ML 10MG/ML 09:31:00 [facility] TDAP 2014-07-26 Completed [facility] of 00:00:00 [facility] TDAP 2014-07-26 Completed [facility] of 00:00:00 [facility] TDAP 2014-07-26 Completed University of 00:00:00 [facility] TDAP 2014-07-26 Completed [facility] of 00:00:00 [facility] TDAP 2014-07-26 Completed [facility] of 00:00:00 [facility] TDAP 2014-07-26 Completed [facility] of 00:00:00 [facility] TDAP 2014-07-26 Completed [facility] 00:00:00 [facility] TDAP 2014-07-26 Completed [facility] of 00:00:00 [facility] TDAP 2014-07-26 Completed [facility] of 00:00:00 [facility] TDAP 2014-07-26 Completed [facility] of 00:00:00 [facility] TDAP 2014-07-26 Completed [facility] of 00:00:00 [facility] TDAP 2014-07-26 Completed [facility] of 00:00:00 [facility] TDAP 2014-07-26 Completed [facility] of 00:00:00 [facility] TDAP 2014-07-26 Completed [facility] of 00:00:00 [facility] TDAP 2014-07-26 Completed [facility] of 00:00:00 [facility] TDAP 2014-07-26 Completed [facility] of 00:00:00 [facility] TDAP 2014-07-26 Completed [facility] of 00:00:00 [facility] TDAP 2014-07-26 Completed University of 00:00:00 [facility] TDAP 2014-07-26 Completed University of 00:00:00 [facility] TDAP 2014-07-26 Completed University of 00:00:00 [facility] TDAP 2014-07-26 Completed University of 00:00:00 [facility] TDAP 2014-07-26 Completed University of 00:00:00 [facility] TDAP 2014-07-26 Completed University of 00:00:00 [facility] TDAP 2014-07-26 Completed University of 00:00:00 [facility] TDAP 2014-07-26 Completed University of 00:00:00 [facility] TDAP 2014-07-26 Completed University of 00:00:00 [facility] TDAP 2014-07-26 Completed University of 00:00:00 [facility] TDAP 2014-07-26 Completed [facility] of 00:00:00 [facility] TDAP 2014-07-26 Completed University of 00:00:00 [facility] TDAP 2014-07-26 Completed [facility] of 00:00:00 [facility] TDAP 2014-07-26 Completed University of 00:00:00 [facility] TDAP 2014-07-26 Completed [facility] of 00:00:00 [facility] TDAP 2014-07-26 Completed [facility] of 00:00:00 [facility] TDAP 2014-07-26 Completed University of 00:00:00 [facility] TDAP 2014-07-26 Completed University of 00:00:00 [facility] TDAP 2014-07-26 Completed University of 00:00:00 [facility] TDAP 2014-07-26 Completed [facility] of 00:00:00 [facility] TDAP 2014-07-26 Completed University of 00:00:00 [facility] TDAP 2014-07-26 Completed University of 00:00:00 [facility] TDAP 2014-07-26 Completed University of 00:00:00 [facility] TDAP 2014-07-26 Completed University of 00:00:00 [facility] TDAP 2014-07-26 Completed University of 00:00:00 [facility] TDAP 2014-07-26 Completed [facility] of 00:00:00 [facility] TDAP 2014-07-26 Completed [facility] of 00:00:00 [facility] TDAP 2014-07-26 Completed [facility] of 00:00:00 [facility] TDAP 2014-07-26 Completed [facility] of 00:00:00 [facility] TDAP 2014-07-26 Completed [facility] of 00:00:00 [facility] TDAP 2014-07-26 Completed [facility] of 00:00:00 [facility] TDAP 2014-07-26 Completed [facility] of 00:00:00 [facility] TDAP 2014-07-26 Completed [facility] of 00:00:00 [facility] TDAP 2014-07-26 Completed [facility] of 00:00:00 [facility] TDAP 2014-07-26 Completed [facility] of 00:00:00 [facility] TDAP 2014-07-26 Completed [facility] of 00:00:00 [facility] TDAP 2014-07-26 Completed [facility] of 00:00:00 [facility] TDAP 2014-07-26 Completed [facility] of 00:00:00 [facility] TDAP 2014-07-26 Completed [facility] of 00:00:00 [facility] TDAP 2014-07-26 Completed [facility] of 00:00:00 [facility] TDAP 2014-07-26 Completed [facility] of 00:00:00 [facility] TDAP 2014-07-26 Completed [facility] of 00:00:00 [facility] TDAP 2014-07-26 Completed [facility] of 00:00:00 [facility] TDAP 2014-07-26 Completed [facility] of 00:00:00 [facility] TDAP 2014-07-26 Completed [facility] of 00:00:00 [facility] TDAP 2014-07-26 Completed [facility] of 00:00:00 [facility] TDAP 2014-07-26 Completed [facility] of 00:00:00 [facility] TDAP 2014-07-26 Completed [facility] of 00:00:00 [facility] TDAP 2014-07-26 Completed [facility] 00:00:00 [facility] TDAP 2014-07-26 Completed [facility] 00:00:00 [facility] TDAP 2014-07-26 Completed [facility] of 00:00:00 [facility] TDAP 2014-07-26 Completed [facility] of 00:00:00 [facility] TDAP 2014-07-26 Completed [facility] of 00:00:00 [facility] TDAP 2014-07-26 Completed [facility] of 00:00:00 [facility] TDAP 2014-07-26 Completed [facility] of 00:00:00 [facility] TDAP 2014-07-26 Completed [facility] of 00:00:00 [facility] TDAP 2014-07-26 Completed [facility] of 00:00:00 [facility] TDAP 2014-07-26 Completed [facility] of 00:00:00 [facility] TDAP 2014-07-26 Completed [facility] of 00:00:00 [facility] Influenza Virus 2012-05-03 Completed [facility] Vaccine 00:00:00 [facility] Influenza Virus 2012-05-03 Completed [facility] of Vaccine 00:00:00 [facility] Influenza Virus 2012-05-03 Completed [facility] of Vaccine 00:00:00 [facility] Influenza Virus 2012-05-03 Completed [facility] y of Vaccine 00:00:00 [facility] Influenza Virus 2012-05-03 Completed [facility] y of Vaccine 00:00:00 [facility] Influenza Virus 2012-05-03 Completed [facility] y of Vaccine 00:00:00 [facility] Influenza Virus 2012-05-03 Completed [facility] of Vaccine 00:00:00 [facility] Influenza Virus 2012-05-03 Completed [facility] of Vaccine 00:00:00 [facility] Influenza Virus 2012-05-03 Completed [facility] y of Vaccine 00:00:00 [facility] Influenza Virus 2012-05-03 Completed [facility] y of Vaccine 00:00:00 [facility] Influenza Virus 2012-05-03 Completed [facility] Vaccine 00:00:00 [facility] Influenza Virus 2012-05-03 Completed [facility] y of Vaccine 00:00:00 [facility] Influenza Virus 2012-05-03 Completed [facility] y of Vaccine 00:00:00 [facility] Influenza Virus 2012-05-03 Completed [facility] y of Vaccine 00:00:00 [facility] Influenza Virus 2012-05-03 Completed [facility] of Vaccine 00:00:00 [facility] Influenza Virus 2012-05-03 Completed [facility] y of Vaccine 00:00:00 [facility] Influenza Virus 2012-05-03 Completed [facility] of Vaccine 00:00:00 [facility] Influenza Virus 2012-05-03 Completed [facility] of Vaccine 00:00:00 [facility] Influenza Virus 2012-05-03 Completed [facility] of Vaccine 00:00:00 [facility] Influenza Virus 2012-05-03 Completed [facility] of Vaccine 00:00:00 [facility] Influenza Virus 2012-05-03 Completed [facility] y of Vaccine 00:00:00 [facility] Influenza Virus 2012-05-03 Completed [facility] y of Vaccine 00:00:00 [facility] Influenza Virus 2012-05-03 Completed [facility] y of Vaccine 00:00:00 [facility] Influenza Virus 2012-05-03 Completed [facility] of Vaccine 00:00:00 [facility] Influenza Virus 2012-05-03 Completed [facility] of Vaccine 00:00:00 [facility] Influenza Virus 2012-05-03 Completed [facility] y of Vaccine 00:00:00 [facility] Influenza Virus 2012-05-03 Completed [facility] y of Vaccine 00:00:00 [facility] Influenza Virus 2012-05-03 Completed [facility] y of Vaccine 00:00:00 [facility] Influenza Virus 2012-05-03 Completed [facility] of Vaccine 00:00:00 [facility] Influenza Virus 2012-05-03 Completed [facility] of Vaccine 00:00:00 [facility] Influenza Virus 2012-05-03 Completed [facility] of Vaccine 00:00:00 [facility] Influenza Virus 2012-05-03 Completed [facility] of Vaccine 00:00:00 [facility] Influenza Virus 2012-05-03 Completed [facility] of Vaccine 00:00:00 [facility] Influenza Virus 2012-05-03 Completed [facility] of Vaccine 00:00:00 [facility] Influenza Virus 2012-05-03 Completed [facility] of Vaccine 00:00:00 [facility] Influenza Virus 2012-05-03 Completed [facility] y of Vaccine 00:00:00 [facility] Influenza Virus 2012-05-03 Completed [facility] y of Vaccine 00:00:00 [facility] Influenza Virus 2012-05-03 Completed [facility] y of Vaccine 00:00:00 [facility] Influenza Virus 2012-05-03 Completed [facility] y of Vaccine 00:00:00 [facility] Influenza Virus 2012-05-03 Completed [facility] y of Vaccine 00:00:00 [facility] Influenza Virus 2012-05-03 Completed [facility] y of Vaccine 00:00:00 [facility] Influenza Virus 2012-05-03 Completed [facility] of Vaccine 00:00:00 [facility] Influenza Virus 2012-05-03 Completed [facility] y of Vaccine 00:00:00 [facility] Influenza Virus 2012-05-03 Completed [facility] y of Vaccine 00:00:00 [facility] Influenza Virus 2012-05-03 Completed [facility] y of Vaccine 00:00:00 [facility] Influenza Virus 2012-05-03 Completed [facility] y of Vaccine 00:00:00 [facility] Influenza Virus 2012-05-03 Completed [facility] y of Vaccine 00:00:00 [facility] Influenza Virus 2012-05-03 Completed [facility] y of Vaccine 00:00:00 [facility] Influenza Virus 2012-05-03 Completed [facility] y of Vaccine 00:00:00 [facility] Influenza Virus 2012-05-03 Completed [facility] y of Vaccine 00:00:00 [facility] Influenza Virus 2012-05-03 Completed [facility] y of Vaccine 00:00:00 [facility] Influenza Virus 2012-05-03 Completed [facility] y of Vaccine 00:00:00 [facility] Influenza Virus 2012-05-03 Completed [facility] y of Vaccine 00:00:00 [facility] Influenza Virus 2012-05-03 Completed [facility] y of Vaccine 00:00:00 [facility] Influenza Virus 2012-05-03 Completed [facility] y of Vaccine 00:00:00 [facility] Influenza Virus 2012-05-03 Completed [facility] y of Vaccine 00:00:00 [facility] Influenza Virus 2012-05-03 Completed [facility] y of Vaccine 00:00:00 [facility] Influenza Virus 2012-05-03 Completed [facility] y of Vaccine 00:00:00 [facility] Influenza Virus 2012-05-03 Completed [facility] y of Vaccine 00:00:00 [facility] Influenza Virus 2012-05-03 Completed [facility] y of Vaccine 00:00:00 [facility] Influenza Virus 2012-05-03 Completed [facility] y of Vaccine 00:00:00 [facility] Influenza Virus 2012-05-03 Completed [facility] y of Vaccine 00:00:00 [facility] Influenza Virus 2012-05-03 Completed [facility] of Vaccine 00:00:00 [facility] Influenza Virus 2012-05-03 Completed [facility] y of Vaccine 00:00:00 [facility] Influenza Virus 2012-05-03 Completed [facility] of Vaccine 00:00:00 [facility] Influenza Virus 2012-05-03 Completed [facility] y of Vaccine 00:00:00 [facility] Influenza Virus 2012-05-03 Completed [facility] y of Vaccine 00:00:00 [facility] Influenza Virus 2012-05-03 Completed [facility] y of Vaccine 00:00:00 [facility] Influenza Virus 2012-05-03 Completed [facility] y of Vaccine 00:00:00 [facility] Influenza Virus 2012-05-03 Completed [facility] of Vaccine 00:00:00 [facility] Influenza Virus 2012-05-03 Completed [facility] of Vaccine 00:00:00 [facility] Influenza Virus 2012-05-03 Completed [facility] of Vaccine 00:00:00 [facility] Influenza Virus 2012-05-03 Completed [facility] of Vaccine 00:00:00 [facility] Influenza Virus 2012-05-03 Completed [facility] of Vaccine 00:00:00 [facility] Influenza Virus 2012-05-03 Completed [facility] of Vaccine 00:00:00 [facility] Influenza Virus 2012-05-03 Completed [facility] y of Vaccine 00:00:00 [facility] Influenza Virus Unknown Completed [facility] y of Vaccine [facility] Influenza Virus Unknown Completed [facility] y of Vaccine [facility] TDAP Unknown Completed [facility] Pneumococcal Unknown Completed University o f Polysaccharide, [facility] ica PPSV23 (PNEUMOVAX) Branch SARS-COV-2 COVID-19 Unknown Completed Unive rsity of MODERNA 12+ YRS [facility] VACCINE [facility] SARS-COV-2 COVID-19 Unknown Completed Unive rsity of MODERNA 12+ YRS [facility] VACC[facility] Influenza Virus Unknown Completed Universit y of Vaccine Quad .5 mL [facility] 6+ MO Branch (FLUZONE/FLULAVAL/F LUARIX) SARS-COV-2 COVID-19 Unknown Completed Unive rsity of VACCINE - (MODERNA) [facility] SARS-COV-2 COVID-19 Unknown Completed Unive rsity of VACCINE - (MODERNA) [facility] Influenza Virus Unknown Completed Univers[facility] y of Vaccine Recomb Quad [facility], Preserv and ABX Branc h Free 18-64 YRS Influenza Virus Unknown Completed [facility] y of Vaccine [facility] Influenza Virus Unknown Completed [facility] y of Vaccine [facility] TDAP Unknown Completed [facility] Pneumococcal Unknown Completed University o f Polysaccharide, [facility] PPSV23 (PNEUMOVAX) Branch SARS-COV-2 COVID-19 Unknown Completed Unive rsity of MODERNA 12+ YRS [facility] VACCINE [facility] SARS-COV-2 COVID-19 Unknown Completed Unive rsity of MODERNA 12+ YRS [facility] VACCINE [facility] Influenza Virus Unknown Completed [facility] of Vaccine Quad .5 mL [facility] 6+ [place] [facility] (FLUZONE/FLULAVAL/F LUARIX) SARS-COV-2 COVID-19 Unknown Completed Unive rsity of VACCINE - (MODERNA) [facility] SARS-COV-2 COVID-19 Unknown Completed Unive rsity of VACCINE - (MODERNA) [facility] Influenza Virus Unknown Completed Universit y of Vaccine Recomb Quad [facility] IM, Preserv and ABX Branc h Free 18-64 YRS Influenza Virus Unknown Completed [facility] y of Vaccine [facility] Influenza Virus Unknown Completed [facility] y of Vaccine [facility] TDAP Unknown Completed [facility] Pneumococcal Unknown Completed [facility] o f Polysaccharide, [facility] PPSV23 (PNEUMOVAX) Branch SARS-COV-2 COVID-19 Unknown Completed Unive rsity of MODERNA 12+ YRS [facility] VACCINE [facility] SARS-COV-2 COVID-19 Unknown Completed Unive rsity of MODERNA 12+ YRS [facility] VACCINE [facility] Influenza Virus Unknown Completed [facility] of Vaccine Quad .5 mL [facility] 6+ [place] [facility] (FLUZONE/FLULAVAL/F LUARIX) SARS-COV-2 COVID-19 Unknown Completed Unive rsity of VACCINE - (MODERNA) [facility] SARS-COV-2 COVID-19 Unknown Completed Unive rsity of VACCINE - (MODERNA) [facility] Influenza Virus Unknown Completed [facility] of Vaccine Recomb Quad [facility], Preserv and ABX Branc h Free 18-64 YRS Influenza Virus Unknown Completed [facility] of Vaccine [facility] Influenza Virus Unknown Completed [facility] of Vaccine [facility] TDAP Unknown Completed [facility] Pneumococcal Unknown Completed University o f Polysaccharide, [facility] ical PPSV23 (PNEUMOVAX) Branch SARS-COV-2 COVID-19 Unknown Completed Unive rsity of MODERNA 12+ YRS [facility] VACCINE [facility] SARS-COV-2 COVID-19 Unknown Completed Unive rsity of MODERNA 12+ YRS [facility] VACC[facility] Influenza Virus Unknown Completed [facility] of Vaccine Quad .5 mL [facility] 6+ [facility] (FLUZONE/FLULAVAL/F LUARIX) SARS-COV-2 COVID-19 Unknown Completed Unive rsity of VACCINE - (MODERNA) [facility] SARS-COV-2 COVID-19 Unknown Completed Unive rsity of VACCINE - (MODERNA) [facility] Influenza Virus Unknown Completed Universit y of Vaccine Recomb Quad [facility] IM, Preserv and ABX Branc h Free 18-64 YRS Influenza Virus Unknown Completed [facility] y of Vaccine [facility] Influenza Virus Unknown Completed [facility] y of Vaccine [facility] TDAP Unknown Completed [facility] Pneumococcal Unknown Completed University o f Polysaccharide, [facility] ical PPSV23 (PNEUMOVAX) Branch SARS-COV-2 COVID-19 Unknown Completed Unive rsity of MODERNA 12+ YRS [facility] VACC[facility] SARS-COV-2 COVID-19 Unknown Completed Unive rsity of MODERNA 12+ YRS [facility] ical VACCINE Branch Influenza Virus Unknown Completed [facility] y of Vaccine Quad .5 mL [facility] 6+ [place] [facility] (FLUZONE/FLULAVAL/F LUARIX) SARS-COV-2 COVID-19 Unknown Completed Unive rsity of VACCINE - (MODERNA) [facility] SARS-COV-2 COVID-19 Unknown Completed Unive rsity of VACCINE - (MODERNA) [facility] Influenza Virus Unknown Completed Universit y of Vaccine Recomb Quad [facility], Preserv and ABX Branc h Free 18-64 YRS Influenza Virus Unknown Completed Universit y of Vaccine [facility] Influenza Virus Unknown Completed [facility] y of Vaccine [facility] TDAP Unknown Completed [facility] Pneumococcal Unknown Completed University o f Polysaccharide, [place] [facility] PPSV23 (PNEUMOVAX) Branch SARS-COV-2 COVID-19 Unknown Completed Unive rsity of MODERNA 12+ YRS [place] [facility] VACCINE [facility] SARS-COV-2 COVID-19 Unknown Completed Unive rsity of MODERNA 12+ YRS [place] [facility] VACCINE [facility] Influenza Virus Unknown Completed Universit y of Vaccine Quad .5 mL [facility] 6+ MO Branch (FLUZONE/FLULAVAL/F LUARIX) SARS-COV-2 COVID-19 Unknown Completed Unive rsity of VACCINE - (MODERNA) [facility] Influenza Virus Unknown Completed [facility]it y of Vaccine [facility] Influenza Virus Unknown Completed [facility]it y of Vaccine [facility] TDAP Unknown Completed [facility] Pneumococcal Unknown Completed University o f Polysaccharide, [place] [facility] PPSV23 (PNEUMOVAX) Branch SARS-COV-2 COVID-19 Unknown Completed Unive rsity of MODERNA 12+ YRS [place] [facility] VACCINE [facility] SARS-COV-2 COVID-19 Unknown Completed Unive rsity of MODERNA 12+ YRS [facility] ical VACCINE Branch Influenza Virus Unknown Completed Universit y of Vaccine Quad .5 mL [facility] 6+ MO Branch (FLUZONE/FLULAVAL/F LUARIX) SARS-COV-2 COVID-19 Unknown Completed Unive rsity of VACCINE - (MODERNA) [facility] Influenza Virus Unknown Completed [facility]it y of Vaccine [facility] Influenza Virus Unknown Completed [facility]it y of Vaccine [facility] TDAP Unknown Completed [facility] Pneumococcal Unknown Completed University o f Polysaccharide, [place] [facility] PPSV23 (PNEUMOVAX) Branch SARS-COV-2 COVID-19 Unknown Completed Unive rsity of MODERNA 12+ YRS [place] [facility] VACCINE [facility] SARS-COV-2 COVID-19 Unknown Completed Unive rsity of MODERNA 12+ YRS [place] [facility] VACCINE [facility] Influenza Virus Unknown Completed [facility]it y of Vaccine Quad .5 mL [facility] 6+ MO Branch (FLUZONE/FLULAVAL/F LUARIX) SARS-COV-2 COVID-19 Unknown Completed Unive rsity of VACCINE - (MODERNA) [facility] Influenza Virus Unknown Completed [facility] Vaccine [facility] [place] Influenza Virus Unknown Completed [facility] Vaccine [facility] [place] TDAP Unknown Completed [facility] Pneumococcal Unknown Completed University o f Polysaccharide, [facility] ical PPSV23 (PNEUMOVAX) Branch SARS-COV-2 COVID-19 Unknown Completed Unive rsity of MODERNA 12+ YRS [place] [facility] VACCINE [facility] SARS-COV-2 COVID-19 Unknown Completed Unive rsity of MODERNA 12+ YRS [facility] ical VACCINE Branch Influenza Virus Unknown Completed [facility]it y of Vaccine Quad .5 mL [facility] 6+ MO Branch (FLUZONE/FLULAVAL/F LUARIX) SARS-COV-2 COVID-19 Unknown Completed Unive rsity of VACCINE - (MODERNA) [facility] Influenza Virus Unknown Completed [facility] Vaccine [facility] [place] Influenza Virus Unknown Completed [facility]it y of Vaccine [facility] TDAP Unknown Completed [facility] Pneumococcal Unknown Completed University o f Polysaccharide, [facility] ical PPSV23 (PNEUMOVAX) Branch SARS-COV-2 COVID-19 Unknown Completed Unive rsity of MODERNA 12+ YRS [facility] ica VACCINE Branch SARS-COV-2 COVID-19 Unknown Completed Unive rsity of MODERNA 12+ YRS [facility] ica VACCINE Branch Influenza Virus Unknown Completed Universit y of Vaccine Quad .5 mL [facility] 6+ MO Branch (FLUZONE/FLULAVAL/F LUARIX) SARS-COV-2 COVID-19 Unknown Completed Unive rsity of VACCINE - (MODERNA) [facility] [place] Influenza Virus Unknown Completed [facility]it y of Vaccine [facility] Influenza Virus Unknown Completed [facility]it y of Vaccine [facility] TDAP Unknown Completed [facility] Pneumococcal Unknown Completed University o f Polysaccharide, [facility] ical PPSV23 (PNEUMOVAX) Branch SARS-COV-2 COVID-19 Unknown Completed Unive rsity of MODERNA 12+ YRS [facility] ical VACCINE Branch SARS-COV-2 COVID-19 Unknown Completed Unive rsity of MODERNA 12+ YRS [facility] ica VACCINE Branch Influenza Virus Unknown Completed [facility]it y of Vaccine Quad .5 mL [facility] 6+ MO Branch (FLUZONE/FLULAVAL/F LUARIX) SARS-COV-2 COVID-19 Unknown Completed Unive rsity of VACCINE - (MODERNA) [facility] Influenza Virus Unknown Completed [facility] Vaccine [facility] Influenza Virus Unknown Completed [facility]it y of Vaccine [facility] TDAP Unknown Completed [facility] Pneumococcal Unknown Completed [facility] o f Polysaccharide, [place] [facility] PPSV23 (PNEUMOVAX) Branch SARS-COV-2 COVID-19 Unknown Completed Unive rsity of MODERNA 12+ YRS [place] [facility] VACCINE [facility] SARS-COV-2 COVID-19 Unknown Completed Unive rsity of MODERNA 12+ YRS [place] [facility] VACCINE [facility] Influenza Virus Unknown Completed Universit y of Vaccine Quad .5 mL [facility] IM 6+ MO Branch (FLUZONE/FLULAVAL/F LUARIX) SARS-COV-2 COVID-19 Unknown Completed Unive rsity of VACCINE - (MODERNA) [facility] Influenza Virus Unknown Completed [facility] Vaccine [facility] [place] Influenza Virus Unknown Completed [facility]it y of Vaccine [facility] TDAP Unknown Completed [facility] Pneumococcal Unknown Completed University o f Polysaccharide, [place] [facility] PPSV23 (PNEUMOVAX) Branch SARS-COV-2 COVID-19 Unknown Completed Unive rsity of MODERNA 12+ YRS [place] [facility] VACCINE [facility] SARS-COV-2 COVID-19 Unknown Completed Unive rsity of MODERNA 12+ YRS [place] [facility] VACCINE [facility] Influenza Virus Unknown Completed [facility]it y of Vaccine [facility] Influenza Virus Unknown Completed [facility]it y of Vaccine [facility] TDAP Unknown Completed [facility] Pneumococcal Unknown Completed University o f Polysaccharide, [place] [facility] PPSV23 (PNEUMOVAX) Branch SARS-COV-2 COVID-19 Unknown Completed Unive rsity of MODERNA 12+ YRS [place] [facility] VACCINE [facility] SARS-COV-2 COVID-19 Unknown Completed Unive rsity of MODERNA 12+ YRS [place] [facility] VACCINE [facility] Influenza Virus Unknown Completed [facility] Vaccine [facility] [place] Influenza Virus Unknown Completed [facility] y of Vaccine [facility] TDAP Unknown Completed [facility] Pneumococcal Unknown Completed University o f Polysaccharide, [place] [facility] PPSV23 (PNEUMOVAX) Branch Influenza Virus Unknown Completed [facility]it y of Vaccine [facility] Influenza Virus Unknown Completed [facility] y of Vaccine [facility] TDAP Unknown Completed [facility] Influenza Virus Unknown Completed [facility]it y of Vaccine [facility] Influenza Virus Unknown Completed [facility] y of Vaccine [facility] TDAP Unknown Completed [facility] Influenza Virus Unknown Completed [facility] y of Vaccine [facility] [place] Influenza Virus Unknown Completed [facility]it y of Vaccine [facility] TDAP Unknown Completed [facility] Influenza Virus Unknown Completed [facility]it y of Vaccine [facility] Influenza Virus Unknown Completed [facility]it y of Vaccine [facility] TDAP Unknown Completed [facility] Pneumococcal Unknown Completed [facility] o f Polysaccharide, [place] [facility] PPSV23 (PNEUMOVAX) Branch SARS-COV-2 COVID-19 Unknown Completed Unive rsity of MODERNA 12+ YRS [place] [facility] VACCINE [facility] SARS-COV-2 COVID-19 Unknown Completed Unive rsity of MODERNA 12+ YRS [place] [facility] VACCINE [facility] Influenza Virus Unknown Completed [facility]it y of Vaccine Quad .5 mL [facility] 6+ MO Branch (FLUZONE/FLULAVAL/F LUARIX) SARS-COV-2 COVID-19 Unknown Completed Unive rsity of VACCINE - (MODERNA) [facility] SARS-COV-2 COVID-19 Unknown Completed Unive rsity of VACCINE - (MODERNA) [facility] [place] Influenza Virus Unknown Completed [facility]it y of Vaccine Recomb Quad [facility], Preserv and ABX Branc h Free 18-64 YRS Influenza Virus Unknown Completed [facility]it y of Vaccine [facility] Influenza Virus Unknown Completed [facility]it y of Vaccine [facility] TDAP Unknown Completed [facility] Pneumococcal Unknown Completed University o f Polysaccharide, [place] [facility] PPSV23 (PNEUMOVAX) Branch SARS-COV-2 COVID-19 Unknown Completed Unive rsity of MODERNA 12+ YRS [place] [facility] VACCINE [facility] SARS-COV-2 COVID-19 Unknown Completed Unive rsity of MODERNA 12+ YRS [place] [facility] VACCINE [facility] Influenza Virus Unknown Completed [facility]it y of Vaccine Quad .5 mL [facility] 6+ MO [facility] (FLUZONE/FLULAVAL/F LUARIX) SARS-COV-2 COVID-19 Unknown Completed Unive rsity of VACCINE - (MODERNA) [facility] SARS-COV-2 COVID-19 Unknown Completed Unive rsity of VACCINE - (MODERNA) [facility] Influenza Virus Unknown Completed [facility]it y of Vaccine Recomb Quad [facility], Preserv and ABX Branc h Free 18-64 YRS Influenza Virus Unknown Completed [facility]it y of Vaccine [facility] Influenza Virus Unknown Completed [facility]it y of Vaccine [facility] TDAP Unknown Completed [facility] Pneumococcal Unknown Completed University o f Polysaccharide, [place] [facility] PPSV23 (PNEUMOVAX) Branch SARS-COV-2 COVID-19 Unknown Completed Unive rsity of MODERNA 12+ YRS [place] [facility] VACCINE [facility] SARS-COV-2 COVID-19 Unknown Completed Unive rsity of MODERNA 12+ YRS [facility] VACCINE [facility] Influenza Virus Unknown Completed [facility]it y of Vaccine Quad .5 mL [facility] 6+ MO Branch (FLUZONE/FLULAVAL/F LUARIX) SARS-COV-2 COVID-19 Unknown Completed Unive rsity of VACCINE - (MODERNA) [facility] SARS-COV-2 COVID-19 Unknown Completed Unive rsity of VACCINE - (MODERNA) [facility] Influenza Virus Unknown Completed [facility]it y of Vaccine Recomb Quad [facility], Preserv and ABX Branc h Free 18-64 YRS Influenza Virus Unknown Completed [facility]it y of Vaccine [facility] Influenza Virus Unknown Completed [facility]it y of Vaccine [facility] TDAP Unknown Completed [facility] Pneumococcal Unknown Completed University o f Polysaccharide, [facility] ical PPSV23 (PNEUMOVAX) Branch SARS-COV-2 COVID-19 Unknown Completed Unive rsity of MODERNA 12+ YRS [place] [facility] VACCINE [facility] SARS-COV-2 COVID-19 Unknown Completed Unive rsity of MODERNA 12+ YRS [facility] VACCINE [facility] Influenza Virus Unknown Completed [facility]it y of Vaccine Quad .5 mL [facility] 6+ [facility] Branch (FLUZONE/FLULAVAL/F LUARIX) SARS-COV-2 COVID-19 Unknown Completed Unive rsity of VACCINE - (MODERNA) [facility] SARS-COV-2 COVID-19 Unknown Completed Unive rsity of VACCINE - (MODERNA) [facility] Influenza Virus Unknown Completed [facility]it y of Vaccine Recomb Quad [facility], Preserv and ABX Branc h Free 18-64 YRS Influenza Virus Unknown Completed [facility]it y of Vaccine [facility] Influenza Virus Unknown Completed [facility] Vaccine [facility] [place] TDAP Unknown Completed [facility] Pneumococcal Unknown Completed University o f Polysaccharide, [place] [facility] PPSV23 (PNEUMOVAX) Branch SARS-COV-2 COVID-19 Unknown Completed Unive rsity of MODERNA 12+ YRS [place] [facility] VACCINE [facility] SARS-COV-2 COVID-19 Unknown Completed Unive rsity of MODERNA 12+ YRS [place] [facility] VACCINE [facility] Influenza Virus Unknown Completed [facility]it y of Vaccine Quad .5 mL [facility] 6+ MO Branch (FLUZONE/FLULAVAL/F LUARIX) SARS-COV-2 COVID-19 Unknown Completed Unive rsity of VACCINE - (MODERNA) [facility] SARS-COV-2 COVID-19 Unknown Completed Unive rsity of VACCINE - (MODERNA) [facility] Influenza Virus Unknown Completed Universit y of Vaccine Recomb Quad [facility], Preserv and ABX Branc h Free 18-64 YRS Influenza Virus Unknown Completed [facility]it y of Vaccine [facility] Influenza Virus Unknown Completed [facility]it y of Vaccine [facility] TDAP Unknown Completed [facility] Pneumococcal Unknown Completed University o f Polysaccharide, [place] [facility] PPSV23 (PNEUMOVAX) Branch SARS-COV-2 COVID-19 Unknown Completed Unive rsity of MODERNA 12+ YRS [place] [facility] VACCINE [facility] SARS-COV-2 COVID-19 Unknown Completed Unive rsity of MODERNA 12+ YRS [place] [facility] VACCINE [facility] Influenza Virus Unknown Completed [facility]it y of Vaccine Quad .5 mL [facility] 6+ MO Branch (FLUZONE/FLULAVAL/F LUARIX) SARS-COV-2 COVID-19 Unknown Completed Unive rsity of VACCINE - (MODERNA) [facility] SARS-COV-2 COVID-19 Unknown Completed Unive rsity of VACCINE - (MODERNA) [facility] Influenza Virus Unknown Completed Universit y of Vaccine Recomb Quad [facility], Preserv and ABX Branc h Free 18-64 YRS Influenza Virus Unknown Completed [facility]it y of Vaccine [facility] Influenza Virus Unknown Completed [facility]it y of Vaccine [facility] TDAP Unknown Completed [facility] Pneumococcal Unknown Completed University o f Polysaccharide, [place] [facility] PPSV23 (PNEUMOVAX) Branch SARS-COV-2 COVID-19 Unknown Completed Unive rsity of MODERNA 12+ YRS [place] [facility] VACCINE [facility] SARS-COV-2 COVID-19 Unknown Completed Unive rsity of MODERNA 12+ YRS [place] [facility] VACCINE [facility] Influenza Virus Unknown Completed [facility]it y of Vaccine Quad .5 mL [facility] 6+ MO Branch (FLUZONE/FLULAVAL/F LUARIX) SARS-COV-2 COVID-19 Unknown Completed Unive rsity of VACCINE - (MODERNA) [facility] SARS-COV-2 COVID-19 Unknown Completed Unive rsity of VACCINE - (MODERNA) [facility] Influenza Virus Unknown Completed Universit y of Vaccine Recomb Quad [facility], Preserv and ABX Branc h Free 18-64 YRS Influenza Virus Unknown Completed Universit y of Vaccine [facility] Influenza Virus Unknown Completed Universit y of Vaccine [facility] TDAP Unknown Completed [facility] Pneumococcal Unknown Completed University o f Polysaccharide, [place] [facility] PPSV23 (PNEUMOVAX) Branch SARS-COV-2 COVID-19 Unknown Completed Unive rsity of MODERNA 12+ YRS [place] [facility] VACCINE [facility] SARS-COV-2 COVID-19 Unknown Completed Unive rsity of MODERNA 12+ YRS [facility] VACCINE [facility] Influenza Virus Unknown Completed [facility]it y of Vaccine Quad .5 mL [facility] 6+ MO Branch (FLUZONE/FLULAVAL/F LUARIX) SARS-COV-2 COVID-19 Unknown Completed Unive rsity of VACCINE - (MODERNA) [facility] SARS-COV-2 COVID-19 Unknown Completed Unive rsity of VACCINE - (MODERNA) [facility] Influenza Virus Unknown Completed Universit y of Vaccine Recomb Quad [facility], Preserv and ABX Branc h Free 18-64 YRS Influenza Virus Unknown Completed [facility]it y of Vaccine [facility] Influenza Virus Unknown Completed [facility]it y of Vaccine [facility] TDAP Unknown Completed [facility] Pneumococcal Unknown Completed University o f Polysaccharide, [facility] ical PPSV23 (PNEUMOVAX) Branch SARS-COV-2 COVID-19 Unknown Completed Unive rsity of MODERNA 12+ YRS [place] [facility] VACCINE [facility] SARS-COV-2 COVID-19 Unknown Completed Unive rsity of MODERNA 12+ YRS [facility] VACCINE [facility] Influenza Virus Unknown Completed Universit y of Vaccine Quad .5 mL [facility] 6+ MO Branch (FLUZONE/FLULAVAL/F LUARIX) SARS-COV-2 COVID-19 Unknown Completed Unive rsity of VACCINE - (MODERNA) [facility] SARS-COV-2 COVID-19 Unknown Completed Unive rsity of VACCINE - (MODERNA) [facility] Influenza Virus Unknown Completed Universit y of Vaccine Recomb Quad [facility], Preserv and ABX Branc h Free 18-64 YRS Influenza Virus Unknown Completed [facility]it y of Vaccine [facility] Influenza Virus Unknown Completed [facility]it y of Vaccine [facility] TDAP Unknown Completed [facility] Pneumococcal Unknown Completed University o f Polysaccharide, [place] [facility] PPSV23 (PNEUMOVAX) Branch SARS-COV-2 COVID-19 Unknown Completed Unive rsity of MODERNA 12+ YRS [place] [facility] VACCINE [facility] SARS-COV-2 COVID-19 Unknown Completed Unive rsity of MODERNA 12+ YRS [place] [facility] VACCINE [facility] Influenza Virus Unknown Completed [facility]it y of Vaccine Quad .5 mL [facility] 6+ MO Branch (FLUZONE/FLULAVAL/F LUARIX) SARS-COV-2 COVID-19 Unknown Completed Unive rsity of VACCINE - (MODERNA) [facility] SARS-COV-2 COVID-19 Unknown Completed Unive rsity of VACCINE - (MODERNA) [facility] Influenza Virus Unknown Completed Universit y of Vaccine Recomb Quad [facility], Preserv and ABX Branc h Free 18-64 YRS Influenza Virus Unknown Completed [facility]it y of Vaccine [facility] Influenza Virus Unknown Completed [facility]it y of Vaccine [facility] TDAP Unknown Completed [facility] Pneumococcal Unknown Completed University o f Polysaccharide, [facility] ical PPSV23 (PNEUMOVAX) Branch SARS-COV-2 COVID-19 Unknown Completed Unive rsity of MODERNA 12+ YRS [facility] ica VACCINE Branch SARS-COV-2 COVID-19 Unknown Completed Unive rsity of MODERNA 12+ YRS [facility] ica VACCINE Branch Influenza Virus Unknown Completed Universit y of Vaccine Quad .5 mL [facility] 6+ MO Branch (FLUZONE/FLULAVAL/F LUARIX) SARS-COV-2 COVID-19 Unknown Completed Unive rsity of VACCINE - (MODERNA) [facility] SARS-COV-2 COVID-19 Unknown Completed Unive rsity of VACCINE - (MODERNA) [facility] Influenza Virus Unknown Completed [facility]it y of Vaccine Recomb Quad [facility], Preserv and ABX Branc h Free 18-64 YRS Vital Signs Vital Name Observation Time Observation Value Comments Source Systolic blood 2022-10-05 18:38:00 137 mm[Hg] Univer sity of pressure [facility] Diastolic blood 2022-10-05 18:38:00 62 mm[Hg] Unive rsity of pressure [facility] Heart rate 2022-10-05 18:38:00 90 /min [facility] Body temperature 2022-10-05 18:38:00 36 [place] [facility] Body height 2022-10-05 18:38:00 160 cm [facility] Body weight 2022-10-05 18:38:00 103.556 kg [facility] BMI 2022-10-05 18:38:00 40.44 kg/m2 [facility] Systolic blood 2022-09-09 20:35:00 114 mm[Hg] Univer sity of pressure [facility] Diastolic blood 2022-09-09 20:35:00 70 mm[Hg] Unive rsity of pressure [facility] Heart rate 2022-09-09 20:35:00 84 /min [facility] Body temperature 2022-09-09 20:35:00 36.67 [place] [facility] Respiratory rate 2022-09-09 20:35:00 16 /min [facility] Body height 2022-09-09 20:35:00 160 cm [facility] Body weight 2022-09-09 20:35:00 104.69 kg [facility] BMI 2022-09-09 20:35:00 40.88 kg/m2 [facility] Oxygen saturation in 2022-09-09 20:35:00 100 /min University Arterial blood by [facility] Pulse oximetry Branch Systolic blood 2022-08-20 20:00:00 176 mm[Hg] Univer sity of pressure [facility] Diastolic blood 2022-08-20 20:00:00 82 mm[Hg] Unive rsity of pressure [facility] Heart rate 2022-08-20 20:00:00 93 /min [facility] Respiratory rate 2022-08-20 20:00:00 18 /min Univ ersity of [facility] Body height 2022-08-20 20:00:00 160 cm [facility] Body weight 2022-08-20 20:00:00 106.414 kg [facility] BMI 2022-08-20 20:00:00 41.56 kg/m2 [facility] of [facility] Oxygen saturation in 2022-08-20 20:00:00 98 /min [facility] blood by [facility] Pulse oximetry Branch Body temperature 2022-04-10 19:45:00 36.83 [place] [facility] Body height 2022-04-10 19:45:00 160 cm [facility] Body weight 2022-04-10 19:45:00 108.863 kg [facility] BMI 2022-04-10 19:45:00 42.51 kg/m2 [facility] height 2020-05-24 09:40:00 63 [in_i] [facility] weight 2020-05-24 09:40:00 255.6 [lb_av] [facility] temperature 2020-05-24 09:40:00 97.1 [degF] [facility] bmi 2020-05-24 09:40:00 45.27 kg/m2 [facility] oximetry 2020-05-24 09:40:00 96 % [facility] respiratory rate 2020-05-24 09:40:00 18 /min [facility] on [facility] blood pressure 2020-05-24 09:40:00 154 mm[Hg] [facility] systolic [facility] blood pressure 2020-05-24 09:40:00 76 mm[Hg] [facility] diastolic [facility] Procedures Procedure Date / Time Performed Performing Clinician [facility] e CBC (INCLUDES 2023-03-24 18:36:00 Karely Posadas [facility] [place] DIFF/PLT)-Q [facility] CBC (INCLUDES 2022-12-14 14:47:00 Karely Posadas [place] [facility] [place] DIFF/PLT)-Q [facility] REFERRAL- 2022-11-09 05:01:00 Doctor Unassigned, No [facility]ONSE Name [facility] 2022-10-05 18:03:54 Doctor Unassigned, No [facility] POLICY Name Medical Branch REFERRAL- 2022-08-28 06:01:00 Doctor Unassigned, No Univer sity [facility] REQUEST/RESPONSE Name Medical Branch ELECTROPHORESIS, SERUM 2022-08-20 20:50:00 [facility] C-REACTIVE PROTEIN 2022-08-20 20:50:00 Karely Posadas [facility] COMP. METABOLIC PANEL 2022-08-20 20:50:00 Karely Posadas [facility] ([id number]) [facility] [place] CBC WITH DIFF 2022-08-20 20:50:00 Karely Posadas [facility] VITAMIN D, 25-[place] 2022-08-20 20:50:00 Karely Posadas [facility] ELECTROPHORESIS, URINE 2022-08-20 20:50:00 Karely Posadas [facility] ASSIGNMENT OF BENEFITS 2022-08-20 19:38:46 Doctor Unassigned, No [facility] EXTERNAL PROVIDER 2022-08-04 06:01:00 Doctor Unassigned, No Univ [facility] PHYSICIAN ORDERS 2022-04-10 05:01:00 [facility] Encounters Start End Encounter Admission Attending Care Care Encounter Source Date/Time Date/Time Type Type Clinicians Facility Department ID 2021-08-20 Outpatient [facility] [id number] Common 12:24:43 James [id number] [facility] 2021-08-20 Out[facility] Sud[facility] CENTER [id number] Common 12:15:42 James 28333 [facility] 2021-08-20 Outpatient Felipe Rosas [facility] [id number] Common 12:05:15 [id number] [facility] 2021-08-20 Outpatient Felipe Rosas STRIGO [facility] [id number] Common 12:00:40 [id number] [facility] 2021-08-20 Outpatient Felipe Rosas [facility] [id number] Common 11:58:53 [id number] [facility] 2021-08-20 Outpatient Jeb STRIGO [facility] [id number] Common 11:14:44 Gretel [id number] [facility] 2021-05-26 Outpatient R [facility]ALDINO [facility] S[facility] [id number] Univers 03:37:13 ANTHONY rick [facility] 2021-05-25 Inpatient GALDINO [facility] S[facility] [id number] Univers 12:29:10 ANTHONY rick [facility] 2021-05-22 Outpatient TAYLORLILIBETH [facility] [id number] Univers 18:41:[address] [facility] 2023-09-13 2023-09-13 Outpatient R CHELY [facility] B [id number] Univers 11:30:00 11:30:[address] [facility] 2023-06-07 2023-06-07 Outpatient R PAULIE CHAYO [facility] [id number] Univers 12:00:00 12:00:00 ity [facility] 2023-05-27 2023-05-[address] [facility] 1.2.936.672 [id number] Univers 00:00:00 00:00:00 Karely Quigley MULTISPEC 350.1.13.10 ity of IALTY 4.2.7.2.686 [facility] [place] [id number] [facility] AND [address] [facility] 2023-05-14 2023-05-14 Patient Cuauhtemoc [facility] 1.2.840.114 [id number] Univers 00:00:00 00:00:00 Secure Msg Karely FRAZIERPEC 350.1.13.10 ity of IALTY 4.2.7.2.686 [facility] [place] [id number] [facility] AND [address] [facility] 2023-05-14 2023-05-14 Patient Cuauhtemoc [facility] 1.2.840.114 [id number] Univers 00:00:00 00:00:00 Secure Msg Karely Quigley MULTISPEC 350.1.13.10 ity of IALTY 4.2.7.2.686 [facility] [place] [id number] [facility] AND [address] [facility] 2023-05-13 2023-05-13 Line Person Vtc-Lab [facility] 1.2.840.114 [id number] Univers 15:15:00 15:30:00 Visit Karely Posadas 350.1.13.10 ity of IALTY 4.2.7.2.686 [facility] [place] [id number] [address] [facility] 2023-05-13 2023-05-13 Outpatient R KARELY POSADAS [facility] 1 [id number] Univers 15:15:00 15:15:00 KARELY POSADAS itrick of [facility] 2023-05-10 2023-05-[address] [facility] 1.2.840.114 [id number] Univers 00:00:00 00:00:00 Karely FRAZIERPEC 350.1.13.10 ity of IALTY 4.2.7.2.686 [facility] [id number] [address] DIABETES [facility] 2023-04-30 2023-04-30 Outpatient R FREDERIC MO [facility] B [id number] Univers 08:44:27 23:59:00 FREDERIC MO ity [facility] 2023-04-30 2023-04-30 [facility] 1.2.840.114 1 [id number] Univers 08:44:27 23:59:00 Encounter Frederic JACKSON 350.1.13.10 ity of [place] 4.2.7.2.686 [facility] [id number] [facility] [address] 2023-04-14 2023-04-[address] [facility] 1.2.840.114 [id number] Univers 00:00:00 00:00:00 Karely FRAZIERPEC 350.1.13.10 ity of IALTY 4.2.7.2.686 [facility] [place] [id number] [address] [facility] 2023-04-13 2023-04-[address] [facility] 1.2.840.114 [id number] Univers 00:00:00 00:00:00 Karely FRAZIERPEC 350.1.13.10 ity of IALTY 4.2.7.2.686 [facility] [place] [id number] [address] [facility] 2023-04-02 2023-04-02 Outpatient R SHERIDAN [facility] [id number] Univers 11:30:00 11:30:00 NASH ity of [facility] 2023-03-25 2023-03-25 Patient Posadas [facility] 1.2.840.114 [id number] Univers 00:00:00 00:00:00 Secure Msg Karely Quigley MULTISPEC 350.1.13.10 it[place] [id number] [facility] AND [address] [facility] 2023-03-24 2023-03-24 Orders COLT Posadas 1.2.840.114 [id number] Univers 00:00:00 00:00:00 Only Karely Quigley ROCKY 350.1.13.10 it y of [facility] 4.2.7.2.686 [place] [id number] [address] 2023-03-21 2023-03-[address] [facility] 1.2.840.114 [id number] Univers 00:00:00 00:00:00 Karely Quigley MULTISPEC 350.1.13.10 it[place] [id number] [facility] AND [address] [facility] 2023-03-14 2023-03-14 Patient Posadas [facility] 1.2.840.114 [id number] Univers 00:00:00 00:00:00 Secure Msg Karely Quigley MULTISPEC 350.1.13.10 it[place] [id number] [facility] AND [address] [facility] 2023-03-12 2023-03-12 Telephone MARILU Saavedra 1.2.082.845 [id number] [id number] Univers 00:00:00 00:00:00 Sendy DANG 350.1.13.10 [place] [id number] [address] 2023-03-05 2023-03-05 Outpatient R GALDINO [facility] [id number] Univers 15:10:00 15:10:00 ANTHONY cullen [facility] 2023-02-05 2023-02-05 Outpatient Elizabeth AHMADI [facility] [id number] Univers 13:20:00 13:20:00 ANTHONY cullen [facility] 2023-01-25 2023-01-25 Outpatient Elizabeth POSADAS [facility] [id number] Univers 15:15:00 15:15:00 KARELY cullen [facility] 2023-01-14 2023-01-14 Outpatient SFA [facility] [id number] Sonu 11:55:26 11:55:26 0622 F Amauri 2022-12-29 2022-12-29 Carmen Posadas [facility] 1.2.840.114 [id number] Univers 00:00:00 00:00:00 Karely Quigley MULTISPEC 350.1.13.10 it[place] [id number] [address] DIABETES [facility] 2022-12-26 2022-12-26 Carmen Posadas [facility] 1.2.840.114 [id number] Univers 00:00:00 00:00:00 Karely FRAZIERPEC 350.1.13.10 it[place] [id number] [address] DIABETES [facility] 2022-12-15 2022-12-15 Patient PANKAJ Posadas 1.2.840.114 [id number] Univers 00:00:00 00:00:00 Secure Msg Karely FRAZIERPEC 350.1.13.10 it[place] [id number] [facility] AND [address] [facility]ES [facility]IC 2022-12-14 2022-12-14 Orders COLT Posadas 1.2.840.114 [id number] Univers 00:00:00 00:00:00 Only Karely Quigley ROCKY 350.1.13.10 it y of HOSPITAL 4.2.7.2.686 [place] [id number] [address] 2022-12-04 2022-12-04 Carmen Ahmadi [facility] 1.2.840.114 [id number] Univers 00:00:00 00:00:00 Anthony A SPECIALTY 350.1.13.10 ity of CARE 4.2.7.2.686 [place] AT [id number] Ky carla RANDHAWA [address] [place] [address] 2022-12-03 2022-12-03 Patient Doctor [facility] 1.2.840.114 [id number] Univers 00:00:00 00:00:00 Secure Msg Unassigned, MULTISPEC 350.1.13.10 ity of [place] I[place] 4.2.[place].2.[place] [id number] [address] DIABETES [facility] 2022-12-02 2022-12-[address] [facility] 1.2.840.114 [id number] Univers 00:00:00 00:00:00 Karely Quigley MULTISPEC 350.1.13.10 ity of IALTY 4.2.7.2.686 [facility] [place] [id number] [address] [facility]ES [facility] 2022-11-23 2022-11-23 Telephone Gloria MICHEL 1.2.840.114 [id number] Univers 00:00:00 00:00:00 , Alexandria DANG 350.1.13.10 [place] 4.2.7.2.686 [facility] [id number] [address] 2022-11-19 2022-11-19 Out[facility] [id number] Univers 13:15:00 13:15:00 KARELY ity of [facility] 2022-11-16 2022-11-[address] [facility] 1.2.657.938 [id number] Univers 00:00:00 00:00:00 Karely Quigley MULTISPEC 350.1.13.10 ity of IALTY 4.2.7.2.686 [facility] [place] [id number] [address] [facility]ES [facility]INIC 2022-11-11 2022-11-[address] [facility] 1.2.840.114 [id number] Univers 00:00:00 00:00:00 Karely A MULTISPEC 350.1.13.10 it[place]7.2.[place] [id number] Marco jordan AND BERTO [address] DIAB[facility]ES CLINIC 2022-11-09 2022-11-09 Orders Doctor COLT 1.2.840.114 [id number] Univers 00:00:00 00:00:00 Only Unassigned, ROCKY 350.1.13.10 ity of [place] [facility] 4.2.7.2.686 [place] [id number] [facility] [address] 2022-10-28 2022-10-28 Outpatient HILARY THIBODEAUX [facility] [id number] Univers 11:30:00 11:30:00 HILARY NELSON [facility] 2022-10-14 2022-10-14 Outpatient Elizabeth NELSON [facility] [id number] Univers 11:00:00 11:00:00 HILARY itrick [facility] 2022-10-10 2022-10-[address] [facility] 1.2.840.114 [id number] Univers 00:00:00 00:00:00 Anthony A SPECIALTY 350.1.13.10 ity [place] C[place] [id number] Ky carla RANDHAWA 198 [facility] 2022-10-10 2022-10-[address] [facility] 1.2.840.114 [id number] Univers 00:00:00 00:00:00 Anthony A SPECIALTY 350.1.13.10 ity of C[place] 4.2.7.2.[place] AT [id number] Ky carla RANDHAWA 198 [facility] 2022-10-07 2022-10-[address] [facility] 1.2.840.114 [id number] Univers 00:00:00 00:00:00 Shashi JACKSON 350.1.13.10 ity of [place] 4.2.7.2.686 [place] [id number] Ky carla NAL 044 [facility] 2022-10-05 2022-10-05 Outpatient [facility] [id number] Univers 13:40:00 14:33:33 ANTHONY ity of [facility] 2022-10-05 2022-10-[address] [facility] 1.2.840.114 [id number] Univers 13:40:00 14:33:33 Visit Anthony A SPECIALTY 350.1.13.10 it[place]2.[place] AT [id number] Ky ginnyjackson Ordaz [facility] 2022-10-05 2022-10-05 Outpatient R GALDINO [facility] [id number] Univers 13:40:00 13:40:00 ANTHONY ity of [facility] 2022-10-05 2022-10-05 Orders Doctor COLT 1.2.840.114 [id number] Univers 00:00:00 00:00:00 Only Unassigned, ROCKY 350.1.13.10 ity of [place] HOSPITAL 4.2.7.2.686 [place] [id number] [facility] [address] 2022-10-05 2022-10-[address] [facility] 1.2.343.547 [id number] Univers 00:00:00 00:00:00 Anthony A SPECIALTY 350.1.13.10 ity of C[place] 4[place]2.7.2.[place] AT [id number] Ky ginnyjackson Ordaz [facility] 2022-09-29 2022-09-29 Patient Doctor COLT 1.2.840.114 [id number] Univers 00:00:00 00:00:00 Secure Msg Unassigned, ROCKY 350.1.13.10 ity of [place] HOSPITAL 4.2.7.2.686 [place] [id number] [facility] [address] 2022-09-21 2022-09-[address] [facility] 1.2.840.114 [id number] Univers 00:00:00 00:00:00 Secure Msg Karely A PRIMARY 350.1.13.10 ity of C[place] 4.2.7.2.[place] [id number] [place] carla [address] 2022-09-17 2022-09-17 Outpatient R MOISÉS [facility] [id number] Univers 13:00:00 13:00:00 , TOMMY it y of [facility] 2022-09-17 2022-09-17 Telephone COLT Kim 1.2.038.153 [id number] [id number] Univers 00:00:00 00:00:00 Bettie Ogden [place] 350.1.13.10 i [facility] 4.2.7.2.686 [place] [id number] [address] 2022-09-16 2022-09-[address] [facility] 1.2.035.664 [id number] Univers 00:00:00 00:00:00 Karely Quigley MULTISPEC 350.1.13.10 it[place] [id number] [facility] AND [address] DIABETES CLINIC 2022-09-16 2022-09-16 Patient Cuauhtemoc [facility] 1.2.840.114 [id number] Univers 00:00:00 00:00:00 Secure Msg Karely Quigley MULTISPEC 350.1.13.10 it[place].2.[place] [id number] [address] DIABETES CLINIC 2022-09-16 2022-09-16 Patient Cuauhtemoc [facility] 1.2.840.114 [id number] Univers 00:00:00 00:00:00 Secure Msg Karely A MULTISPEC 350.1.13.10 ity of IALTY 4.2.7.2.686 [facility] [place] [id number] [address] DIABETES CLINIC 2022-09-16 2022-09-[address] [facility] 1.2.281.477 [id number] [id number] Univers 00:00:00 00:00:00 Karely Quigley PRIMARY 350.1.13.10 it y of CARE 4.2.7.2.686 [place] [facility] [id number] [address] 2022-09-16 2022-09-[address] [facility] 1.2.562.787 [id number] [id number] Univers 00:00:00 00:00:00 Karely Quigley MULTISPEC 350.1.13.10 ity of [place].2.[place] [id number] [facility] AND [place] [address] DIAB[facility]ES [facility]INIC 2022-09-15 2022-09-15 Patient Doctor COLT 1.2.840.114 [id number] Univers 00:00:00 00:00:00 Secure Msg Unassigned, ROCKY 350.1.13.10 [facility] 4.2.7.2.686 [place] [id number] [facility] [address] 2022-09-14 2022-09-14 Refill [facility], UNIVERSIT 1.2.840.114 100 [id number] Univers 00:00:00 00:00:00 Aishat Y 350.1.13.10 it y of [facility] [place].7.2.[place] [facility] [id number] [facility] BLDG. [address] 2022-09-14 2022-09-14 Telephone [facility] 1.2.821.562 [id number] [id number] Univers 00:00:00 00:00:00 Karely CASTANEDA 350.1.13.10 ity of [facility] 4.2.7.2.[place] [id number] [address] DIABETES CLINIC 2022-09-14 2022-09-14 Patient Elizabethquin [facility] 1.2.840.114 [id number] Univers 00:00:00 00:00:00 Secure Msg Frederic NELSON 350.1.13.10 it[place] of PEDI[place]RIC [place] [id number] [facility] [address] 2022-09-14 2022-09-14 [facility] 1.2.840.114 [id number] Univers 00:00:00 00:00:00 Shashi JACKSON 350.1.13.10 ity of [place].2.686 [place] [facility] [id number] [place] dical NAL [address] [facility] 2022-09-13 2022-09-13 Refill Darrel, UNIVERSIT 1.2.840.114 100 [id number] Univers 00:00:00 00:00:00 Aishat Y 350.1.13.10 it y of [facility] [place].7.2.[place] [id number] [facility] BLDG. [address] 2022-09-11 2022-09-11 Telephone Cuauhtemoc [facility] 1.2.032.068 3022 [id number] Univers 00:00:00 00:00:00 Karely A MULTISPEC 350.1.13.10 ity of I[place] 4.2.7.2.686 [place] [id number] [facility] [address] DIAB[facility]ES CLINIC 2022-09-10 2022-09-10 Patient Chely [facility] 1.2.840.114 [id number] Univers 00:00:00 00:00:00 Secure Msg Frederic LESLIE 350.1.13.10 ity of W[place]'S 4[place]2.7.2.[place] HE[place] [id number] [facility] [address] 2022-09-10 2022-09-10 Telephone Guilherme [facility] 1.2.840.114 100 [id number] Univers 00:00:00 00:00:00 Ognate JACKSON 350.1.13.10 ity of [place] 4.2.7.2.[place] [id number] Ky dical NAL 044 [facility] 2022-09-10 2022-09-10 Patient Cuauhtemoc [facility] 1.2.840.114 [id number] Univers 00:00:00 00:00:00 Secure Msg Karely Soraida PRIMARY 350.1.13.10 ity of CARE 4.2.7.2.[place] PAV[place] [id number] [place] dical [address] 2022-09-09 2022-09-09 Outpatient R FREDERIC MO [facility] B [id number] Univers 14:15:00 15:04:16 FREDERIC MO ity of [facility] 2022-09-09 2022-09-09 Office Chely [facility] 1.2.840.114 [id number] Univers 14:15:00 15:04:16 Visit Frederic NELSON 350.1.13.10 it y of W[place]'S 4[place].7.2.[place] 361.3018051 [facility] [address] 2022-09-08 2022-09-08 Telephone [facility] 1.2.840.114 [id number] Univers 00:00:00 00:00:00 Ogauroraukwu RENETTA 350.1.13.10 ity of [facility] 4.2.7.2.[place] [id number] Ky dical NAL 044 [facility] 2022-09-03 2022-09-03 [facility] 1.2.840.114 [id number] Univers 00:00:00 00:00:00 Ogechukwu ANGLEJENNA 350.1.13.10 ity of [facility] 4.2.7.2.[place] [id number] [place] dical NAL 044 [facility] 2022-09-02 2022-09-02 Pre Visit MARILU Criag 1.2.116.325 1252 [id number] Univers 00:00:00 00:00:00 Outreach Nancy ALTON 350.1.13.10 i ty of [place].2.[place] [id number] [facility] [address] 2022-09-02 2022-09-[address] [facility] 1.2.840.114 [id number] Univers 00:00:00 00:00:00 Anthony Quigley SPECIALTY 350.1.13.10 ity of C[place]2.7.2.[place] AT [id number] Ky dical VICTORY 198 [facility] 2022-08-28 2022-08-28 Orders Doctor COLT 1.2.840.114 [id number] Univers 00:00:00 00:00:00 Only Unassigned, ROCKY 350.1.13.10 ity of [place] [facility] 4.2.7.2.686 [place] 434.9787699 [facility] [address] 2022-08-21 2022-08-21 Patient Justice [facility] 1.2.840.114 [id number] Univers 00:00:00 00:00:00 Secure Msg Karyn Smith MULTISPEC 350.1.13.10 ity of [place]2.[place] [id number] [address] DIABETES CLINIC 2022-08-20 2022-08-20 Line Person Vtc-Lab [facility] 1.2.840.114 100 [id number] Univers 15:00:00 15:15:00 Visit Karely Posadas MULTISPEC 350.1.13.10 ity of IALTY 4.2.7.2.686 [facility] [id number] [address] DIABETES CLINIC 2022-08-20 2022-08-20 Outpatient R CUAUHTEMOC [facility] [id number] Univers 14:15:00 14:44:43 KARELY cullen of [facility] 2022-08-20 2022-08-20 Office Cuauhtemoc [facility] 1.2.840.114 [id number] Univers 14:15:00 14:44:43 Visit Karely Quigley MULTISPEC 350.1.13.10 ity of IALTY 4.2.7.2.686 [facility] [place] [id number] [facility] AND [address] DIABETES CLINIC 2022-08-20 2022-08-20 Orders Doctor COLT 1.2.840.114 [id number] Univers 00:00:00 00:00:00 Only Unassigned, ROCKY 350.1.13.10 ity of [place] HOSPITAL 4.2.7.2.686 [place] [id number] [address] 2022-08-14 2022-08-14 Outpatient R FREDERIC MO [facility] B [id number] Univers 14:00:00 14:00:00 FREDERIC MO itrick of [facility] 2022-08-14 2022-08-14 Patient Galdino [facility] 1.2.840.114 [id number] Univers 00:00:00 00:00:00 Secure Msg Anthony Quigley SPECIALTY 350.1.13.10 ity of CARE 4.2.7.2.686 [facility] AT [id number] Ky carla RANDHAWA [address] [place] [address] 2022-08-12 2022-08-12 Magali Ahmadi [facility] 1.2.735.063 [id number] 0217 Univers 00:00:00 00:00:00 Anthony A SPECIALTY 350.1.13.10 ity [place] C[place]2.[place] AT [id number] Ky carla RANDHAWA 198 [facility] 2022-08-07 2022-08-07 Pre Visit MARILU Craig 1.2.128.870 3027 0597 Univers 00:00:00 00:00:00 Outreach Nancy DANG 350.1.13.10 i ty [place] [id number] [facility] [address] 2022-08-04 2022-08-04 Orders Doctor COLT 1.2.840.114 [id number] Univers 00:00:00 00:00:00 Only Unassigned, ROCKY 350.1.13.10 ity of [place] HOSPITAL 4.2.7.2.686 [place] [id number] [facility] [address] 2022-07-30 2022-07-30 Carmen Ahmadi [facility] 1.2.840.114 [id number] Univers 00:00:00 00:00:00 Anthony A SPECIALTY 350.1.13.10 ity of C[place]7.2.[place] AT [id number] Ky carla RANDHAWA 198 [facility] 2022-07-30 2022-07-30 PANKAJ Hunt 1.2.840.114 [id number] Univers 00:00:00 00:00:00 Karely Quigley MULTISPEC 350.1.13.10 it[place] [id number] [address] [facility] 2022-06-25 2022-06-25 PANKAJ Hunt 1.2.840.114 [id number] [facility] 00:00:00 00:00:00 Karely Quigley MULTISPEC 350.1.13.10 [place] [id number] [address] [facility] 2022-06-14 2022-06-14 Carmen Posadas WVJANY 1.2.840.114 [id number] Univers 00:00:00 00:00:00 Karely Quigley MULTISPEC 350.1.13.10 ity of IALTY 4.2.7.2.686 [facility] [place] [id number] [address] DIAB[facility]ES [facility] 2022-06-02 2022-06-02 Patient Doctor [facility] 1.2.840.114 [id number] Univers 00:00:00 00:00:00 Secure Msg Unassigned, MULTISPEC 350.1.13.10 ity of [place] IALTY 4.2.7.2.686 [facility] [place] [id number] [address] DIABETES [facility] 2022-05-28 2022-05-[address] [facility] 1.2.840.114 [id number] Univers 00:00:00 00:00:00 Karely FRAZIERPEC 350.1.13.10 ity of [facility]ALTY [facility].2.7.[facility] [place] [id number] [address] DIABETES [facility] 2022-05-25 2022-05-[address] [facility] 1.2.840.114 [id number] Univers 00:00:00 00:00:00 Anthony Quigley SPECIALTY 350.1.13.10 ity of CARE 4.2.7.2.686 [facility] [place] AT [id number] [address] 2022-05-11 2022-05-11 Outpatient Elizabeth POSADAS [facility] [id number] Univers 13:45:00 13:45:00 KARELY ity of [facility] 2022-05-08 2022-05-[address] [facility] 1.2.840.114 [id number] Univers 00:00:00 00:00:00 Karely Quigley MULTISPEC 350.1.13.10 ity of IALTY 4.2.7.2.686 [facility] [id number] [address] DIABETES [facility] 2022-05-06 2022-05-06 Outpatient R FREDERIC MO [facility] B [id number] Univers 13:30:00 13:30:00 VENKATESHROXANNAGILBERTOFREDERIC [place]OL[place]O ity [facility] 2022-04-15 2022-04-15 Outpatient R BLANCA [facility] [id number] Univers 11:15:00 11:15:00 MEHDI itrick [facility] 2022-04-14 2022-04-14 Telephone Blanca [facility] 1.2.840.114 [id number] Univers 00:00:00 00:00:00 Mehdi JACKSON 350.1.13.10 i ty of [id number] [place] 134 [facility] 2022-04-10 2022-04-10 Outpatient R GALDINO [facility] [id number] Univers 15:10:00 15:22:35 ANTHONY cullen [facility] 2022-04-10 2022-04-[address] [facility] 1.2.840.114 [id number] Univers 15:10:00 15:22:35 Visit Anthony Quigley SPECIALTY 350.1.13.10 [place] [phone] [place] 198 [facility] 2022-04-10 2022-04-10 Orders Doctor COLT 1.2.840.114 [id number] Univers 00:00:00 00:00:00 Only Unassigned, ROCKY 350.1.13.10 ity of [place] [facility] 4.2.7.2.686 [place] as [id number] [facility] [address] 2022-04-02 2022-04-02 Patient Cuauhtemoc [facility] 1.2.840.114 [id number] Univers 00:00:00 00:00:00 Secure Msg Karely Soraida MULTISPEC 350.1.13.10 [place] [phone] [facility] [facility] AND BERTO [address] [facility] 2022-04-01 2022-04-[address] [facility] 1.2.712.334 [id number] Univers 00:00:00 00:00:00 Anthony Quigley SPECIALTY 350.1.13.10 it[place] [phone] Ky carla MONIQUEY 198 [facility] 2022-04-01 2022-04-[address] [facility] 1.2.033.532 [id number] Univers 00:00:00 00:00:00 Anthony Quigley SPECIALTY 350.1.13.10 it[place] [id number] Ky carla RANDHAWA 198 [facility] 2022-04-01 2022-04-[address] [facility] 1.2.613.464 [id number] Univers 00:00:00 00:00:00 Karely Quigley MULTISPEC 350.1.13.10 it[place] of [place] [id number] [facility] BERTO [address] [place] [address] DIABETES CLINIC 2022-03-30 2022-03-30 Carmen Mcclure [facility] 1.2.840.114 [id number] Univers 00:00:00 00:00:00 Shashi JACKSON 350.1.13.10 ity of [place].7.2.[place] [id number] Ky carla GILLIAM 044 [facility] 2022-03-27 2022-03-27 Outpatient Elizabeth AHMADI [facility] [id number] Univers 16:10:00 16:10:00 ANTHONY cullen [facility] 2022-03-02 2022-03-02 Outpatient Elizabeth AHMADI [facility] [id number] Univers 12:40:00 12:40:00 ANTHONY cullen [facility] 2022-02-26 2022-02-[address] [facility] 1.2.840.114 [id number] Univers 00:00:00 00:00:00 Karely FRAZIERPEC 350.1.13.10 it[place] of [place] [id number] [facility] AND BERTO [address] [place] [address] DIABETES CLINIC 2022-02-16 2022-02-16 Outpatient Elizabeth AHMADI [facility] [id number] Univers 10:20:00 10:20:00 ANTHONY cullen [facility] 2022-02-09 2022-02-09 Telephone Galdino [facility] 1.2.273.704 [id number] Univers 00:00:00 00:00:00 Anthony Quigley SPECIALTY 350.1.13.10 ity of CARE 4.2.7.2.686 [facility] [phone] Ky carla RANDHAWA [address] [place] [address] 2022-02-02 2022-02-02 Line Person Vtc-Lab [facility] 1.2.840.114 [id number] Univers 14:45:00 15:00:00 Visit Karely PosadasPEC 350.1.13.10 ity of IALTY 4.2.7.2.686 [facility] [id number] [facility] AND BERTO [address] [facility] 2022-02-02 2022-02-02 Outpatient Elizabeth POSADAS [facility] [id number] Univers 13:45:00 14:31:59 KARELY cullen [facility] 2022-02-02 2022-02-[address] [facility] 1.2.840.114 [id number] Univers 13:45:00 14:31:59 Visit Karely FRAZIERPEC 350.1.13.10 ity of IALTY 4.2.7.2.686 [facility] s [place] [id number] [facility] BERTO [address] [facility] 2022-02-02 2022-02-02 Outpatient Elizabeth POSADAS [facility] [id number] Univers 13:45:00 13:45:00 KARELY cullen [facility] 2022-02-02 2022-02-02 Outpatient Elizabeth POSADAS [facility] [id number] Univers 13:45:00 13:45:00 KARELY cullen [facility] 2022-01-28 2022-01-28 Outpatient MICHEL DEXTER [facility] [id number] Univers 10:30:00 10:30:00 MICHEL COVARRUBIAS [facility] 2022-01-22 2022-01-22 Outpatient Elizabeth POSADAS [facility] [id number] Univers 14:15:00 14:15:00 KARELY cullen [facility] 2022-01-21 2022-01-21 Patient Cuauhtemoc [facility] 1.2.840.114 [id number] Univers 00:00:00 00:00:00 Secure Msg Karely A MULTISPEC 350.1.13.10 it[place] of [place] 4.2.7.2.[place] [id number] [address] DIABETES CLINIC 2022-01-19 2022-01-19 [facility] [id number] Univers 12:00:00 12:00:00 SHANE ity of [facility] 2022-01-19 2022-01-19 [facility] 1.2.840.114 [id number] Univers 00:00:00 00:00:00 Aishat Y 350.1.13.10 it y of [employer] [place].2.[place] [id number] [facility] BLDG. [address] 2021-12-30 2021-12-[address] [facility] 1.2.840.114 [id number] Univers 00:00:00 00:00:00 Ogechukwu [place] 350.1.13.10 ity of [place] 4.2.7.2.[place] [id number] Ky dical NAL 044 [facility] 2021-12-27 2021-12-[address] [facility] 1.2.840.114 [id number] Univers 00:00:00 00:00:00 Karely Quigley MULTISPEC 350.1.13.10 ity of [place].2.[place] [id number] [address] [facility]ABETES CLINIC 2021-12-18 2021-12-[address] [facility] 1.2.840.114 [id number] Univers 00:00:00 00:00:00 Ogechukwu [place] 350.1.13.10 ity of [place] 4.2.7.2.[place] [phone] Ky dical NAL 044 [facility] 2021-12-11 2021-12-11 Outpatient [facility] [id number] Univers 13:45:00 15:45:32 AISHAT ity [facility] 2021-12-11 2021-12-11 Office RIVAS Rojo 1.2.840.114 [id number] Univers 13:45:00 15:45:32 Visit Martin Dumont 350.1.13.10 it y of [facility] 4.2.7.2.686 [facility] [id number] [facility] BLDG. [address] 2021-12-11 2021-12-11 Outpatient [facility] [id number] Univers 13:45:00 13:45:00 AIST ity [facility] 2021-12-11 2021-12-11 Orders Doctor GREGORY 1.2.840.114 [id number] Univers 00:00:00 00:00:00 Only Unassigned, ROCKY 350.1.13.10 it[facility] 4.2.7.2.686 [place] as [phone] [address] 2021-12-09 2021-12-09 Outpatient R CLARIBEL [facility] [id number] Univers 10:15:00 10:15:00 [facility] 2021-12-09 2021-12-09 Outpatient R [facility] [id number] Univers 10:15:00 10:15:00 [facility] 2021-12-03 2021-12-[address] [facility] 1..840.114 [id number] Univers 00:00:00 00:00:00 ShaneBerst 350.1.13.10 it y of [place] 4.2.7.2.686 [place] as SHLOMO?BLEA [phone] [place] carla SANTILLAN [address] [place] [address] MEDICAL OFFICE BUILDING 2021-11-24 2021-11-24 Outpatient [facility] [id number] Univers 09:20:00 09:34:43 ANTHONY cullen [facility] 2021-11-24 2021-11-[address] [facility] 1.2.840.114 [id number] Univers 09:20:00 09:34:43 Visit Anthony FORMAN 350.1.13.10 ity of [facility] 4.2.7.2.686 [facility] AT [phone] Ky carla RANDHAWA 198 [facility] 2021-11-24 2021-11-24 Outpatient R GALDINO [facility] [id number] Univers 09:20:00 09:20:00 ANTHONY loririck [facility] 2021-11-24 2021-11-24 Outpatient R GALDINO [facility] [id number] Univers 09:20:00 09:20:00 ANTHONY loririck [facility] 2021-11-14 2021-11-14 Outpatient R [facility] [id number] Univers 13:08:45 23:59:00 NICOLE subhash [facility] 2021-11-14 2021-11-14 [facility] 1.2.840.114 [id number] Univers 13:00:00 23:59:00 Encounter Nicole JACKSON 350.1.13.10 ity of Stacia [facility] 4.2.7.2.686 [facility] [id number] [facility] [address] 2021-11-10 2021-11-10 Outpatient R SHASHI MCCLURE [facility] [id number] Univers 11:30:00 11:30:00 SHASHI MCCLURE ity [facility] 2021-11-06 2021-11-06 Out[facility] [id number] Univers 14:00:00 15:45:22 MARTIN ity [facility] 2021-11-06 2021-11-06 Office HALIMA RojoIT 1.2.840.114 [id number] Univers 14:00:00 15:45:22 Visit Martin Dumont 350.1.13.10 it y of [facility] 4.2.7.2.686 [facility] [id number] [facility] BLDG. [address] 2021-11-06 2021-11-06 Outpatient R [facility] [id number] Univers 14:00:00 14:00:00 DESHAWNT ity [facility] 2021-10-29 2021-10-29 Patient Galdino [facility] 1.2.840.114 [id number] Univers 00:00:00 00:00:00 Secure Msg Anthony Quigley SPECIALTY 350.1.13.10 ity of CARE 4.2.7.2.686 [facility] [place] AT [phone] [place] ginny[address] 2021-10-28 2021-10-28 Telephone Cuauhtemoc [facility] 1.2.538.054 [id number] Univers 00:00:00 00:00:00 Karely Quigley MULTISPEC 350.1.13.10 ity of IALTY 4.2.7.2.686 [facility] [place] [id number] [address] DIABETES CLINIC 2021-10-27 2021-10-27 Line Person [facility] 1.2.840.114 [id number] Univers 15:15:00 15:30:00 Visit Karely Posadas 350.1.13.10 ity of IALTY 4.2.7.2.686 [facility] [place] [id number] [facility] AND [address] DIABETES CLINIC 2021-10-27 2021-10-[address] [facility] 1.2.840.114 [id number] Univers 14:15:00 14:55:31 Visit Karely FRAZIERPEC 350.1.13.10 ity of IALTY 4.2.7.2.686 [facility] [place] [id number] [address] DIABETES CLINIC 2021-10-27 2021-10-27 Outpatient Elizabeth POSADAS [facility] [id number] Univers 14:15:00 14:55:31 KARELY cullen [facility] 2021-10-27 2021-10-27 Outpatient Elizabeth POSADAS [facility] [id number] Univers 14:15:00 14:55:31 KARELY cullen [facility] 2021-10-27 2021-10-27 Office Cuauhtemoc [facility] 1.2.840.114 [id number] Univers 14:15:00 14:55:31 Visit Karely CASTANEDA 350.1.13.10 it[place] of [place].2.[place] [id number] [facility] AND THOMSON [address] [place] [address] DIABETES CLINIC 2021-10-27 2021-10-27 Outpatient Elizabeth POSADAS [facility] [id number] Univers 14:15:00 14:55:31 KARELY cullen [facility] 2021-10-27 2021-10-27 Outpatient Elizabeth POSADAS [facility] [id number] Univers 14:15:00 14:15:00 KARELY cullen [facility] 2021-10-27 2021-10-27 Outpatient Elizabeth POSADAS [facility] [id number] Univers 14:15:00 14:15:00 KARELY cullen [facility] 2021-10-27 2021-10-27 Outpatient Elizabeth POSADAS [facility] [id number] Univers 14:15:00 14:15:00 KARELY cullen [facility] 2021-10-27 2021-10-27 Outpatient Elizabeth POSADAS [facility] [id number] Univers 14:15:00 14:15:00 KARELY cullen [facility] 2021-10-27 2021-10-27 Patient Cuauhtemoc W[place]JANY 1.2.840.114 [id number] Univers 00:00:00 00:00:00 Secure Msg Karely Quigley MULTISPEC 350.1.13.10 ity of IALTY 4.2.7.2.686 [facility] [id number] [facility] AND [address] DIABETES CLINIC 2021-10-20 2021-10-20 Telephone Galdino [facility] 1.2.155.249 [id number] Univers 00:00:00 00:00:00 Atnhony Quigley SPECIALTY 350.1.13.10 ity of CARE 4.2.7.2.686 [facility] AT [id number] Ky ginnyjackson ENEIDARick [address] [place] [address] 2021-10-17 2021-10-17 Outpatient Elizabeth AHMADI [facility] [id number] Univers 16:10:00 16:10:00 ANTHONY cullen [facility] 2021-10-07 2021-10-07 Patient Cuauhtemoc [facility] 1.2.840.114 [id number] Univers 00:00:00 00:00:00 Secure Msg Karely A MULTISPEC 350.1.13.10 ity of [place] 4.[place].7.2.[place] [id number] [address] DIABETES CLINIC 2021-10-07 2021-10-[address] [facility] 1.2.840.114 [id number] Univers 00:00:00 00:00:00 Secure Msg Karely A MULTISPEC 350.1.13.10 it[place] of [place].2.[place] [id number] [address] DIABETES CLINIC 2021-10-07 2021-10-[address] [facility] 1.2.495.794 [id number] Univers 00:00:00 00:00:00 Anthony Soraida PRIMARY 350.1.13.10 it y of CARE 4.2.7.2.686 [place] [facility] [phone] [address] 2021-10-06 2021-10-06 Outpatient R GALDINO [facility] [id number] Univers 13:00:00 13:00:00 ANTHONY ity of [facility] 2021-10-06 2021-10-06 Telephone [facility] 1.2.349.958 [id number] Univers 00:00:00 00:00:00 Anthony Quigley SPECIALTY 350.1.13.10 ity of [place].2.[place] AT [id number] [address] 2021-09-27 2021-09-27 Carmen Liu [facility] 1.2.840.114 [id number] Univers 00:00:00 00:00:00 Sunday Rubin MULTISPEC 350.1.13.10 ity of I[place] 4.2.[place].2.686 [place] [id number] [address] DIABETES CLINIC 2021-09-23 2021-09-23 Carmen Mcclure [facility] 1.2.840.114 [id number] Univers 00:00:00 00:00:00 Shashi JACKSON 350.1.13.10 ity of [place] 4.2.7.2.[place] [id number] Ky dical NAL 044 [facility] 2021-09-16 2021-09-16 Telephone Guilherme [facility] 1.2.840.114 [id number] Univers 00:00:00 00:00:00 Shashi JACKSON 350.1.13.10 ity of [facility] 4.2.7.2.686 [place] [id number] Ky dical NAL 044 [facility] 2021-09-15 2021-09-15 Outpatient R JONATHAN [facility] [id number] Univers 11:00:00 11:00:00 SHANE ity [facility] 2021-09-10 2021-09-[address] [facility] 1.2.754.055 [id number] [facility] 00:00:00 00:00:00 Anthony Quigley SPECIALTY 350.1.13.10 ity of C[place] 4.2.7.2.[place] AT [phone] Ky dicjackson VICTORY 198 [facility] 2021-09-01 2021-09-01 Outpatient R GALDINO [facility] [id number] Univers 09:50:00 10:23:54 ANTHONY cullen [facility] 2021-09-01 2021-09-[address] [facility] 1.2.840.114 [id number] Univers 09:50:00 10:23:54 Visit Anthony Quigley SPECIALTY 350.1.13.10 ity of [place]2.[place].2.[place] AT [phone] Ky dicjackson VICTORY 198 [facility] 2021-09-01 2021-09-01 [facility] [id number] Univers 09:50:00 09:50:00 ANTHONY cullen [facility] 2021-09-01 2021-09-01 Orders Doctor GREGORY 1.2.840.114 [id number] Univers 00:00:00 00:00:00 Only Unassigned, ROCKY 350.1.13.10 ity of [place] [facility] 4.2.7.2.686 [place] [id number] [address] 2021-08-26 2021-08-26 Patient Doctor [facility] 1.2.840.114 [id number] Univers 00:00:00 00:00:00 Secure Msg Unassigned, SPECIALTY 350.1.13.10 ity of [place] C[place] 4.2.7.2.[place] AT [id number] Ky carla EDIS 198 [facility] 2021-08-17 2021-08-17 Jerzychucky Jonathan [facility] 1.2.840.114 [id number] Univers 00:00:00 00:00:00 Shane JACKSON 350.1.13.10 i ty of [place] 4.2.7.2.686 [place] [id number] Ky carla NAL 220 [facility] 2021-08-15 2021-08-15 Orders Doctor COLT 1.2.840.114 [id number] Univers 00:00:00 00:00:00 Only Unassigned, ROCKY 350.1.13.10 ity of [place] [facility] 4.2.7.2.686 [place] [id number] [address] 2021-08-12 2021-08-12 Outpatient R SHASHI MCCLURE [facility] [id number] Univers 13:00:00 13:59:16 SHASHI MCCLURE ity [facility] 2021-08-12 2021-08-12 Office Guilherme [facility] 1.2.840.114 [id number] Univers 13:00:00 13:59:16 Visit Shashi JACKSON 350.1.13.10 ity of [place] 4.2.7.2.686 [place] [id number] Ky carla GILLIAM 044 [facility] 2021-08-12 2021-08-12 Outpatient R MEG [facility] [id number] Univers 09:20:00 09:20:00 SAM cullen [facility] 2021-08-06 2021-08-06 Orders Doctor COLT 1.2.840.114 [id number] Univers 00:00:00 00:00:00 Only Unassigned, ROCKY 350.1.13.10 ity of [place] HOSPITAL 4.2.7.2.686 [place] as [id number] [facility] [address] 2021-08-05 2021-08-05 Patient Doctor [facility] 1.2.840.114 [id number] Univers 00:00:00 00:00:00 Secure Msg Unassigned, MULTISPEC 350.1.13.10 ity of [place].2.7.2.686 [place] [id number] [address] DIABETES CLINIC 2021-08-04 2021-08-[address] [facility] 1.2.840.114 [id number] Univers 00:00:00 00:00:00 Frantz MULTISPEC 350.1.13.10 ity of [place] 4.2.7.2.686 [place] [id number] [address] DIABETES CLINIC 2021-08-01 2021-08-01 Outpatient R GALDINO [facility] [id number] Univers 14:00:00 14:00:00 ANTHONY ity of [facility] 2021-08-01 2021-08-[address] [facility] 1.2.331.895 [id number] Univers 00:00:00 00:00:00 Anthony Quigley PRIMARY 350.1.13.10 it y of CARE 4.2.7.2.686 [place] [facility] [id number] [facility] [address] 2021-07-28 2021-07-[address] [facility] 1.2.840.114 [id number] Univers 00:00:00 00:00:00 Sunday Rubin MULTISPEC 350.1.13.10 ity of [place] 4.2.7.2.686 [place] [id number] [address] DIABETES CLINIC 2021-07-24 2021-07-24 Orders Doctor COLT 1.2.840.114 [id number] Univers 00:00:00 00:00:00 Only Unassigned, ROCKY 350.1.13.10 ity of [place] HOSPITAL 4.2.7.2.686 [place] [id number] [address] 2021-07-21 2021-07-21 Outpatient R MARX, [facility] [id number] Univers 13:45:00 13:45:00 BUBBA ity [facility] 2021-07-21 2021-07-21 Outpatient R ARASELI, [facility] [id number] Univers 13:45:00 13:45:00 BUBBA ity [facility] 2021-07-14 2021-07-[address] [facility] 1.2.500.948 [id number] Univers 00:00:00 00:00:00 Anthony A SPECIALTY 350.1.13.10 ity of C[place] 4.2.7.2.686 [place] AT [id number] Ky carla MONIQUERick 198 [facility] 2021-07-14 2021-07-14 Telephone Pamela [facility] 1.2.265.963 [id number] [id number] Univers 00:00:00 00:00:00 Frantz MULTISPEC 350.1.13.10 ity of [place] 4.2.7.2.686 [place] [id number] [facility] AND BERTO [address] DIAB[facility]ES CLINIC 2021-07-08 2021-07-08 Orders Doctor COLT 1.2.840.114 [id number] Univers 00:00:00 00:00:00 Only Unassigned, ROCKY 350.1.13.10 ity of [place] [facility] 4.2.7.2.686 [place] [id number] [facility] [address] 2021-07-04 2021-07-[address] [facility] 1.2.485.783 [id number] [id number] Univers 00:00:00 00:00:00 Anthony A SPECIALTY 350.1.13.10 ity of C[place] 4.2.7.2.686 [place] AT [id number] Ky carla ENEIDAY [address] [place] 2021-07-03 2021-07-03 Carmen Castillo [facility] 1.2.840.114 [id number] Univers 00:00:00 00:00:00 Shane JACKSON 350.1.13.10 i ty of [place] 4.2.7.2.686 [place] [id number] Ky dical NAL 220 [facility] 2021-07-03 2021-07-03 Telephone Galdino [facility] 1.2.100.112 [id number] [id number] Univers 00:00:00 00:00:00 Anthony FORMAN 350.1.13.10 ity of CARE 4.2.7.2.686 [facility] AT [phone] Ky dicjackson VICTORY 198 [facility] 2021-07-01 2021-07-01 Outpatient Elizabeth RIOS [facility] [id number] Univers 10:45:00 10:45:00 [facility] 2021-07-01 2021-07-01 Outpatient Elizabeth RIOS [facility] [id number] Univers 10:45:00 10:45:00 [facility] 2021-07-01 2021-07-01 Outpatient Elizabeht RIOS [facility] [id number] Univers 10:45:00 10:45:00 [facility] 2021-06-23 2021-06-23 Telephone COLT Santiago 1.2.805.010 [id number] Univers 00:00:00 00:00:00 Frantz HIDALGO 350.1.13.10 ity of HOSPITAL 4.2.7.2.686 [place] as [id number] [facility] [address] 2021-06-23 2021-06-23 Refill Pamela [facility] 1.2.840.114 [id number] Univers 00:00:00 00:00:00 Frantz CASTANEDA 350.1.13.10 ity of IALTY 4.2.7.2.686 [facility] CENTER [id number] [facility] AND [place] [address] DIABETES CLINIC 2021-06-23 2021-06-23 Orders Doctor COLT 1.2.840.114 [id number] Univers 00:00:00 00:00:00 Only UnassignedROCKY 350.1.13.10 ity of [place] HOSPITAL 4.2.7.2.686 [place] as [id number] [facility] [address] 2021-06-17 2021-06-17 Patient Pamela [facility] 1.2.840.114 [id number] Univers 00:00:00 00:00:00 Secure Msg Frantz MULTISPEC 350.1.13.10 ity of [place] 4.2.7.2.686 [place] [id number] [facility] AND [place] [address] [facility] 2021-06-11 2021-06-11 Patient RIVAS Dexter 1.2.465.623 [id number] Univers 00:00:00 00:00:00 Secure Msg [facility] HEALTH 350.1.13.10 it[place] [id number] [facility] [address] 2021-06-11 2021-06-11 [facility] 1.2.840.114 [id number] Univers 00:00:00 00:00:00 Shane HEALTH 350.1.13.10 it y of [place] 4.2.7.2.686 [place] as SHLOMO?BLEA [id number] [address] MEDICAL OFFICE BUILDING 2021-06-06 2021-06-06 [facility] 1.2.840.114 [id number] Univers 00:00:00 00:00:00 Shane HEALTH 350.1.13.10 it y of [place] 4.2.7.2.686 [place]OMO?BLEA [id number] [address] MEDICAL OFFICE BUILDING 2021-06-06 2021-06-06 [facility] 1.2.840.114 [id number] Univers 00:00:00 00:00:00 Shane HEALTH 350.1.13.10 it y of [place] 4.2.7.2.686 [place]OMO?BLEA [phone] [address] MEDICAL OFFICE BUILDING 2021-06-06 2021-06-06 Orders Doctor COLT 1.2.840.114 [id number] Univers 00:00:00 00:00:00 Only Unassigned, ROCKY 350.1.13.10 ity of [place] [facility] 4.2.7.2.686 [place] [phone] [facility] [address] 2021-06-04 2021-06-04 Office Justice Dexter [facility] 1.2.840.1 [id number] Univers 11:22:12 12:05:27 Visit Marilyn Weston [facility] 350.1.13.1 0 ity of CL[place] [id number] [facility] [address] 2021-06-04 2021-06-04 Outpatient R TRISTA [facility] [id number] Univers 11:15:00 12:05:27 MARILYN rick [facility] 2021-06-04 2021-06-04 Outpatient R TRISTA [facility] [id number] Univers 11:15:00 11:15:[address] [facility] 2021-06-04 2021-06-04 Outpatient Elizabeth WESTON [facility] [id number] Univers 11:15:00 11:15:00 [facility] 2021-06-04 2021-06-04 [facility] 1.2.840.114 [id number] Univers 00:00:00 00:00:00 Karely Quigley MULTISPEC 350.1.13.10 [place] [phone] [place] [facility] AND BERTO [address] [facility] 2021-05-29 2021-05-29 Outpatient Elizabeth MARX [facility] [id number] Univers 14:15:00 14:15:[address] [facility] 2021-05-28 2021-05-[address] [facility] 1.2.304.178 [id number] Univers 00:00:00 00:00:00 Anthony A SPECIALTY 350.1.13.10 it[place] [phone] [place] carla RANDHAWA 198 [facility] 2021-05-28 2021-05-[address] [facility] 1.2.105.733 [id number] Univers 00:00:00 00:00:00 Anthony A SPECIALTY 350.1.13.10 it[place] [phone] Ky carla RANDHAWA 198 [facility] 2021-05-26 2021-05-26 Patient Frederic [facility] 1.2.840.114 [id number] Univers 00:00:00 00:00:00 Secure Msg Mike R MULTISPEC 350.1.13.10 it[place] of [place] [phone] [address] [facility] 2021-05-23 2021-05-23 [facility] [id number] Univers 14:10:00 15:38:08 ANTHONY cullen [facility] 2021-05-23 2021-05-23 Office [facility] 1.2.840.114 [id number] Univers 13:50:45 15:38:08 Visit Anthony Quigley SPECIALTY 350.1.13.10 it[place] [phone] [place] carla R[place] [address] [place] [address] 2021-05-23 2021-05-23 Outpatient R GALDINO [facility] [id number] Univers 14:10:00 14:10:00 ANTHONY cullen [facility] 2021-05-23 2021-05-23 Orders Doctor COLT 1.2.840.114 [id number] Univers 00:00:00 00:00:00 Only Unassigned, ROCKY 350.1.13.10 ity of [place] [facility] 4.2.7.2.686 [place] [phone] [facility] [address] 2021-05-22 2021-05-22 Patient RIVAS Sesay 1.2.840.114 [id number] Univers 00:00:00 00:00:00 Secure Msg Kristyna Y HEALTH 350.1.13.10 ity of CLINICS 4.2.7.2.[place] [id number] [facility] [address] 2021-05-19 2021-05-19 Telephone [facility] 1.2.773.560 [id number] Univers 00:00:00 00:00:00 Anthony Quigley SPECIALTY 350.1.13.10 it[place] [phone] [place] carla R[place] [address] [place] [address] 2021-05-15 2021-05-[address] [facility] 1.2.911.421 [id number] Univers 00:00:00 00:00:00 Anthony Quigley SPECIALTY 350.1.13.10 ity of CARE 4.2.7.2.686 [facility] [phone] Ky carla R[place] 198 [facility] 2021-05-12 2021-05-[address] [facility] 1.2.840.114 [id number] Univers 11:28:37 11:58:37 Visit Alkermes 350.1.13.10 it y of [place] 4.2.7.2.686 [place] as Shlomo?Blea [phone] [place] carla santillan [address] [facility] 2021-05-12 2021-05-12 [facility] [id number] Univers 11:30:00 11:30:00 [facility] ity of [facility] 2021-05-06 2021-05-06 Orders Doctor COLT 1.2.840.114 [id number] Univers 00:00:00 00:00:00 Only Unassigned, ROCKY 350.1.13.10 ity of [place] HOSPITAL 4.2.7.2.686 [place] as [phone] [address] 2021-05-05 2021-05-05 Outpatient R JONATHAN [facility] [id number] Univers 13:30:00 13:30:00 [facility] ity of [facility] 2021-05-02 2021-05-[address] [facility] 1.2.840.114 [id number] Univers 00:00:00 00:00:00 Sunday Rubin MULTISPEC 350.1.13.10 it[place] of [place].2.[place].2.[place] [id number] [facility] AND [address] [facility]ETES [facility] 2021-05-01 2021-05-01 Patient Doctor COLT 1.2.840.114 [id number] Univers 00:00:00 00:00:00 Secure Msg Unassigned, ROCKY 350.1.13.10 ity of [place] HOSPITAL 4.2.7.2.686 [place] as [phone] [facility] [address] 2021-04-30 2021-04-30 Patient Doctor [facility] 1.2.094.628 [id number] Univers 00:00:00 00:00:00 Secure Msg Unassigned, ICAL 350.1.13.10 ity of [place] SCIENCES 4.2.7.2.686 [place] as BLDG [phone] [facility] [address] 2021-04-30 2021-04-[address] [facility] 1.2.840.114 [id number] Univers 00:00:00 00:00:00 Secure Msg Frantz PRIMARY 350.1.13.10 ity of CARE 4.2.7.2.686 [place] [id number] [place] dical [address] 2021-04-30 2021-04-[address] [facility] 1.2.840.114 [id number] Univers 00:00:00 00:00:00 Shane Jackson 350.1.13.10 i ty of [place] 4.[place].7.2.686 [place] [facility] [phone] [place] dical nal [address] Building 2021-04-30 2021-04-30 Telephone Paemla [facility] 1.2.104.433 [id number] Univers 00:00:00 00:00:00 Frantz MULTISPEC 350.1.13.10 ity of IALTY 4.2.7.2.686 [place] [phone] [facility] AND BERTO [address] [facility] 2021-04-29 2021-04-29 Line Person 1, Adc Lab [facility] 1.2.840.114 [id number] Univers 13:51:06 14:06:06 Visit Nicole Marx 350.1. 13.10 ity of [place] 4.2.7.2.686 [place] [id number] [facility] [address] 2021-04-29 2021-04-29 Outpatient R ARASELI [facility] [id number] Univers 13:30:00 13:30:00 NICOLE cullen of [facility] 2021-04-29 2021-04-[address] [facility] 1.2.840.114 [id number] [facility] 00:00:00 00:00:00 Lotus Olmstead MULTISPEC 350.1.13.10 it[place] of IAL[place] 4.2.[place].2.[place] [id number] [facility] AND [address] [facility]IC 2021-04-29 2021-04-29 Refill Alexa [facility] 1.2.840.114 [id number] Univers 00:00:00 00:00:00 Sunday Rubin MULTISPEC 350.1.13.10 ity of IALTY 4.2.7.2.[place] [id number] [facility] AND [address] [facility]ETES [facility]INIC 2021-04-28 2021-04-28 Office [facility] 1.2.840 .114 [id number] [facility] 14:10:26 16:04:28 Visit Nicole Marx MULTISPEC 350.1 .13.10 ity of IALTY 4.2.7.2.686 [facility] [id number] [facility] AND [address] [facility] 2021-04-28 2021-04-28 Office Leo [facility] 1.2.840 .114 [id number] [facility] 14:10:26 16:04:28 Visit Nicole Marx MULTISPEC 350.1 .13.10 ity of IALTY 4.2.7.2.686 [facility] [phone] [facility] AND [address] [facility]ETES CLINIC 2021-04-28 2021-04-28 Outpatient R [facility] [id number] Univers 15:40:00 15:40:00 ity of [facility] 2021-04-28 2021-04-28 Office Cuauhtemoc [facility] 1.2.840.114 [id number] Univers 14:09:59 15:01:44 Visit Karely Quigley MULTISPEC 350.1.13.10 it[place] of [place] 4.2.[place].2.[place] [id number] [facility] AND [address] DIABETES CLINIC 2021-04-28 2021-04-28 Refchucky Shah, [facility] 1.2.840.114 [id number] Univers 00:00:00 00:00:00 Emma MULTISPEC 350.1.13.10 ity of [place] I[place].2.7.2.[place] [phone] [facility] [address] [facility] 2021-04-28 2021-04-28 Patient Leo, [facility] 1.2.840.114 [id number] Univers 00:00:00 00:00:00 Secure Msg Melissa-Rehma MULTISPEC 350.1.13.10 ity of n IALTY 4.2.7.2.[place] [id number] [facility] [address] [facility] 2021-04-24 2021-04-24 Outpatient R JORDAN [facility] [id number] Univers 13:00:00 13:00:00 DESEAN ity of [facility] 2021-04-21 2021-04-21 Outpatient R [facility] [id number] Univers 13:30:00 13:30:00 ity of [facility] 2021-04-21 2021-04-21 Orders Doctor COLT 1.2.840.114 [id number] Univers 00:00:00 00:00:00 Only Unassigned, ROCKY 350.1.13.10 ity of [place] [facility] 4.2.7.2.686 [place] [phone] [address] 2021-04-16 2021-04-16 Patient Doctor [facility] 1.2.840.114 [id number] Univers 00:00:00 00:00:00 Secure Msg Unassigned, MULTISPEC 350.1.13.10 ity of [place] I[place]TY 4.2.7.2.[place] [id number] [facility] [address] [facility] 2021-04-08 2021-04-[address] [facility] 1.2.840.114 [id number] Univers 00:00:00 00:00:00 Shane Jackson 350.1.13.10 i ty of [place] 4.2.7.2.686 [place] Profess[place] [phone] [place] dical nal [address] Building 2021-04-07 2021-04-07 Outpatient R JONATHAN, [facility] [id number] Univers 12:00:00 12:00:00 SHANE ity [facility] 2021-04-07 2021-04-07 Outpatient R JONATHAN [facility] [id number] Univers 10:00:00 10:00:00 SHANE ity [facility] 2021-04-07 2021-04-07 Line Person Shelby, Adc Lab Main [facility] 1.2.8 40.114 [id number] Univers 09:20:11 09:35:11 Visit Shane Castillo 350.1.13.10 ity of [place] 4.2.7.2.[place] Profess[place] [phone] [place] dical [facility] [address] Building 2021-04-07 2021-04-07 Orders Doctor COLT 1.2.840.114 [id number] Univers 00:00:00 00:00:00 Only Unassigned, ROCKY 350.1.13.10 ity of [place] [facility] 4.2.7.2.686 [place] [phone] [facility] [address] 2021-04-06 2021-04-06 Carmen Liu [facility] 1.2.840.114 [id number] Univers 00:00:00 00:00:00 Sunday Rubin MULTISPEC 350.1.13.10 ity of [place] 4.2.7.2.686 [place] [id number] [facility] AND THOMSON [address] DIABETES CLINIC 2021-04-04 2021-04-04 Telephone Jonathan [facility] 1.2.840.114 [id number] Univers 00:00:00 00:00:00 [facility] 350.1.13.10 it y of [place] 4.2.7.2.686 [place] as Shlomo?Blea [phone] [place] dical kney [address] [facility] 2021-04-04 2021-04-04 Refchucky Castillo [facility] 1.2.840.114 [id number] Univers 00:00:00 00:00:00 Shane Jackson 350.1.13.10 i ty [facility] [place].2.7.2.[place] [phone] [place] carla gilliam 220 [facility] 2021-04-03 2021-04-03 Outpatient Elizabeth POSADAS [facility] [id number] Univers 14:15:00 14:15:00 KARELY loririck [facility] 2021-03-28 2021-03-28 Office [facility] 1.2.840.114 [id number] Univers 13:41:10 14:18:57 Visit Anthony Quiglye SPECIALTY 350.1.13.10 ity of C[place] 4.2.[place].2.[place] AT [phone] [place] carla RANDHAWA [address] [place] [address] 2021-03-28 2021-03-28 Outpatient [facility] [id number] Univers 14:00:00 14:00:00 ANTHONY cullen [facility] 2021-03-28 2021-03-28 Orders Doctor GREGORY 1.2.840.114 [id number] Univers 00:00:00 00:00:00 Only Unassigned, ROCKY 350.1.13.10 ity of [place] [facility] 4.2.7.2.686 [place] [phone] [address] 2021-03-27 2021-03-27 Outpatient Elizabeth POSADAS [facility] [id number] Univers 13:45:00 13:45:00 KARELY cullen [facility] 2021-03-21 2021-03-21 Outpatient Elizabeth [facility] [id number] Univers 14:50:00 14:50:00 ANTHONY cullen [facility] 2021-03-18 2021-03-18 Telephone [facility] 1.2.232.957 [id number] Univers 00:00:00 00:00:00 Anthony A SPECIALTY 350.1.13.10 it[place] of C[place].2.7.2.[place] AT [phone] Ky carla EDIS 198 [facility] 2021-03-17 2021-03-17 Orders Doctor GREGORY 1.2.840.114 [id number] Univers 00:00:00 00:00:00 Only Unassigned, ROCKY 350.1.13.10 [facility] 4.2.7.2.686 [facility] [phone] [place] [address] [address] 2021-03-13 2021-03-13 Outpatient R CUAUHTEMOC [facility] [id number] Univers 13:45:00 13:45:[address] [facility] 2021-02-21 2021-02-21 Outpatient R GALDINO [facility] [id number] Univers 15:20:00 15:20:00 ANTHONY rick [facility] 2021-01-31 2021-01-31 [facility] [id number] Univers 13:50:00 13:50:[address] [facility] 2021-01-14 2021-01-14 Outpatient R RAMYA [facility] [id number] Univers 14:00:00 14:00:00 SATNAM rick [facility] 2020-12-17 2020-12-17 Outpatient R [facility] [id number] Univers 13:30:00 13:30:00 [facility] 2020-12-02 2020-12-02 Outpatient R ALEXA [facility] [id number] Univers 14:00:00 14:00:[address] [facility] 2020-11-28 2020-11-28 Outpatient R FREDERIC [facility] [id number] Univers 15:15:00 15:15:[address] [facility] 2020-11-21 2020-11-[address] [facility] 1.2.840.114 [id number] Univers 00:00:00 00:00:00 Frantz MULTISPEC 350.1.13.10 ity [facility] 4.2.7.2.686 [facility] [id number] [facility] AND [address] DIABETES CLINIC 2020-11-05 2020-11-05 Outpatient R [facility] [id number] Univers 14:10:00 14:10:[address] [facility] 2020-11-01 2020-11-01 [facility] [id number] Univers 10:20:00 10:20:00 ANTHONY ity [facility] 2020-10-24 2020-10-24 Outpatient R ARASELI, [facility] [id number] Univers 13:30:00 13:30:00 BUBBA ity [facility] 2020-10-09 2020-10-09 Patient Doctor [facility]ERS[facility] 1.2.246.832 [id number] Univers 00:00:00 00:00:00 Secure Msg Unassigned, Y HEALTH 350.1.13.10 ity of [place] CLINICS 4.2.7.2.[place] [phone] [facility] [address] 2020-09-23 2020-09-23 Outpatient R JONATHAN, [facility] [id number] Univers 12:00:00 12:00:00 SHANE ity [facility] 2020-08-06 2020-08-06 Patient Doctor [facility] 1.2.385.544 [id number] Univers 00:00:00 00:00:00 Secure Msg Unassigned, ICAL 350.1.13.10 ity of [place] SCIENCES 4.2.7.2.686 [place] as BLDG [phone] [facility] [address] 2020-07-30 2020-07-30 Outpatient R ALEXA, [facility] [id number] Univers 15:30:00 15:30:00 SUNDAY ity [facility] 2020-07-30 2020-07-30 Outpatient Elizabeth NAVARRO, [facility] [id number] Univers 09:00:00 09:00:00 WONDIFUL ity o f [facility] 2020-07-23 2020-07-23 Outpatient Elizabeth AHMADI, [facility] [id number] Univers 14:20:00 14:20:[address] [facility] 2020-07-16 2020-07-16 (TEL) STLMLC STLMLC [id number] Co mmon 00:00:00 00:00:00 [facility] 2020-07-16 2020-07-16 (TEL) STLMLC STLMLC [id number] Co mmon 00:00:00 00:00:00 [facility] 2020-07-11 2020-07-11 Outpatient R ARASELI, [facility] [id number] Univers 13:30:00 13:30:00 BUBBA cullen [facility] 2020-07-05 2020-07-05 Outpatient R GALDINO, [facility] [id number] Univers 09:10:00 09:10:00 ANTHONY cullen [facility] 2020-07-02 2020-07-02 Outpatient R JESSICA, [facility] [id number] Univers 14:30:00 14:30:00 PAVAN loririck o f [facility] 2020-07-01 2020-07-01 Outpatient R DIPESHROSANA, [facility] [id number] Univers 10:30:00 10:30:00 MEHDI cullen [facility] 2020-07-01 2020-07-01 Outpatient R BLANCA, [facility] [id number] Univers 10:30:00 10:30:[address] [facility] 2020-06-24 2020-06-24 Outpatient R JONATHAN, [facility] [id number] Univers 13:00:00 13:00:00 SHANETHERESA cullen [facility] 2020-06-04 2020-06-04 Outpatient R MARYBEL, [facility] [id number] Univers 09:30:00 09:30:00 ROSEMARIE subhash [facility] 2020-05-31 2020-05-31 [facility] [id number] Univers 10:20:00 10:20:00 ANTHONY cullen [facility] 2020-05-31 2020-05-31 (TEL) STLMLC STLMLC [id number] Co mmon 00:00:00 00:00:00 [facility] 2020-05-24 2020-05-24 OFFICE STLMLC STLMLC [id number] Co mmon 00:00:00 00:00:00 VISIT EST Spir it PT LEVEL 3 - [facility] 2020-05-10 2020-05-[address] [facility] 1.2.971.555 [id number] 00:00:00 00:00:00 Anthony Quigley SPECIALTY 350.1.13.10 CARE 4.2.7.2.686 CENTER AT [id number] EDIS BARDALES 2020-05-07 2020-05-07 Outpatient R PABLO, [facility] [id number] Univers 11:40:00 11:40:00 EMMA ity [facility] 2020-05-06 2020-05-06 Outpatient R MARX, [facility] [id number] Univers 13:00:00 13:00:00 BUBBA ity [facility] 2020-05-04 2020-05-04 Nurse COLT [place] 1.2.937.575 [id number] 00:00:00 00:00:00 Triage Nomi R[place]Y 350.1.13.10 HOSPITAL 4.2.7.2.686 [id number] 2020-05-02 2020-05-02 Hospital Radiology [facility] 1.2.840.114 [id number] 09:23:43 23:59:00 Encounter [place] 350.1.13.10 [place] 4.2.7.2.686 [place] [id number] 2020-05-02 2020-05-02 Outpatient R RADIOLOGY [facility] [id number] Univers 09:23:43 23:59:00 ity of [facility] 2020-05-02 2020-05-02 Outpatient R RADIOLOGY [facility] [id number] Univers 00:00:00 00:00:00 ity [facility] 2020-05-02 2020-05-02 Orders Doctor COLT 1.2.840.114 [id number] 00:00:00 00:00:00 Only Unassigned, [place] 350.1.13.10 [place] [facility] 4.2.7.2.686 [id number] 2020-04-26 2020-04-26 Patient Doctor [facility] 1.2.840.114 [id number] Univers 00:00:00 00:00:00 Secure Msg Unassigned, MULTISPEC 350.1.13.10 ity of [place] [facility] 4.2.7.2.686 [facility] [id number] Marco jordan AND BERTO [address] [facility] 2020-04-25 2020-04-25 Refill Pablo [facility] 1.2.840.114 [id number] 00:00:00 00:00:00 Emma MULTISPEC 350.1.13.10 [place] IALTY 4.2.7.2.686 CENTER [id number] AND [place] [address] DI[facility]ETES CLINIC 2020-04-23 2020-04-23 Outpatient Elizabeth AHMADI [facility] [id number] Univers 11:00:00 11:00:00 ANTHONY rick [facility] 2020-04-09 2020-04-09 Outpatient Elizabeth AHMADI [facility] [id number] Univers 00:00:00 00:00:00 ANTHONY subhash [facility] 2020-03-29 2020-03-29 Outpatient Elizabeth AHMADI [facility] [id number] Univers 10:30:00 10:30:00 ANTHONY rick [facility] 2020-03-22 2020-03-22 Outpatient Elizabeth AHMADI [facility] [id number] Univers 11:20:00 11:20:[address] [facility] 2020-03-14 2020-03-14 Outpatient Elizabeth AHMADI [facility] [id number] Univers 00:00:00 23:59:[address] [facility] 2020-03-14 2020-03-14 Outpatient Elizabeth AHMADI [facility] [id number] Univers 00:00:00 00:00:[address] [facility] 2020-02-23 2020-02-23 Outpatient Elizabeth AHMADI [facility] [id number] Univers 13:15:54 23:59:[address] [facility] 2020-02-23 2020-02-23 Outpatient Elizabeth AHMADI [facility] [id number] Univers 13:00:00 13:00:00 [facility] 2020-02-23 2020-02-23 Patient Doctor UN[facility]ERSIT 1.2.496.183 [id number] Univers 00:00:00 00:00:00 Secure Msg Unassigned, HEALTH 350.1.13.10 ity of [place] CLINICS 4.2.7.2.686 [facility] [id number] [facility] [address] 2020-02-19 2020-02-19 Outpatient Elizabeth AHMADI [facility] [id number] Univers 14:40:00 14:40:[address] [facility] 2020-02-19 2020-02-19 Patient Doctor [facility]ERSIT 1.2.865.316 [id number] Univers 00:00:00 00:00:00 Secure Msg Unassigned, [facility] 350.1.13.10 ity of [place] CLINICS 4.2.7.2.686 Griselda goldstein [id number] [address] 2020-02-05 2020-02-05 Outpatient R MARX, [facility] [id number] Univers 13:45:00 13:45:[address] [facility] 2020-01-29 2020-01-29 Outpatient R FAILLACE, [facility] [id number] Univers 12:49:55 23:59:[address] [facility] 2020-01-29 2020-01-29 Outpatient R FAILLACE, [facility] [id number] Univers 13:10:00 13:10:[address] [facility] 2020-01-11 2020-01-11 Outpatient R CLARIBEL, [facility] [id number] Univers 14:45:00 14:45:[address] [facility] 2020-01-02 2020-01-02 Outpatient R PABLO, [facility] [id number] Univers 11:20:00 11:20:[address] [facility] 2019-12-28 2019-12-28 Outpatient R WANDERALMA [facility] [id number] Univers 10:40:00 10:40:00 [facility] 2019-12-26 2019-12-26 Outpatient R FAILLACE, [facility] [id number] Univers 13:58:52 23:59:[address] [facility] 2019-12-26 2019-12-26 Outpatient R FAILLACE, [facility] [id number] Univers 00:00:00 00:00:[address] [facility] 2019-12-25 2019-12-25 Outpatient R FAILLACE, [facility] [id number] Univers 16:20:00 16:20:[address] [facility] 2019-12-11 2019-12-11 Outpatient R JONATHAN, [facility] [id number] Univers 13:00:00 13:00:[address] [facility] 2019-12-06 2019-12-06 Outpatient R ARASELI, [facility] [id number] Univers 10:00:00 10:00:[address] [facility] 2019-11-29 2019-11-29 Outpatient R ARASELI [facility] [id number] Univers 13:30:00 13:30:[address] [facility] 2019-11-27 2019-11-27 Outpatient R TAYLORLILIBETH [facility] [id number] Univers 10:50:00 10:50:[address] [facility] 2019-11-15 2019-11-15 Outpatient R ADINA [facility] [id number] Univers 09:00:00 09:00:[address] [facility] 2019-11-14 2019-11-14 Outpatient R YESSENIA [facility] [id number] Univers 14:15:00 14:15:[address] [facility] 2019-11-14 2019-11-14 Abstract Gloria [facility] [id number] Univers 00:00:00 00:00:00 [facility] [id number] [id number] [address] 2019-10-12 2019-10-12 Outpatient José Miguel Valdezt [id number] Common 10:00:00 10:00:00 [facility] 2019-09-28 2019-09-28 Outpatient Elizabeth BUI [facility] [id number] Univers 10:30:00 10:30:[address] [facility] 2019-09-07 2019-09-07 [id number] Common 11:39:00 11:39:00 t [facility] 2019-09-07 2019-09-07 Outpatient José Miguel [facility] [id number] Common 11:38:00 11:38:00 t [facility] Sp[facility] 2019-09-05 2019-09-05 [facility] [id number] Common 13:30:00 13:30:00 t [facility] Bone [facility] Sp[facility] t and [facility] 2019-06-28 2019-06-28 [facility] [id number] Common 15:10:00 15:10:00 t [facility] 2019-06-19 2019-06-19 [id number] Common 15:03:00 15:03:00 t [facility] Bone [facility] Spiri t and Joint [facility] - [facility] 2019-06-12 2019-06-12 [facility] [id number] Common 11:10:00 11:10:00 t Bone Bone and Spiri t and Joint Joint - [facility] 2019-06-12 2019-06-12 [facility] 27 [id number] Common 10:30:00 10:30:00 t Bone Bone and Spiri t and Joint Joint - [facility] 2019-05-04 2019-05-04 [facility] [id number] Common 15:30:00 15:30:00 t Bone Bone and Spiri t and Joint Joint - [facility] 2019-04-26 2019-04-26 [facility] 27 [id number] Common 10:00:00 10:00:00 t Bone Bone and Spiri t and Joint Joint - [facility] 2019-04-19 2019-04-19 [facility] 27 [id number] Common 08:26:00 08:26:00 t Bone Bone and Spiri t and Joint Joint - [facility] 2019-04-04 2019-04-04 [facility] 27 [id number] Common 10:43:00 10:43:00 t Bone Bone and Spiri t and Joint Joint - [facility] 2019-04-03 2019-04-03 [facility] [id number] Common 13:25:00 13:25:00 t Bone Bone and Spiri t and Joint Joint - [facility] 2019-03-06 2019-03-06 [facility] [id number] Common 14:00:00 14:00:00 t Bone Bone and Spiri t and Joint Joint - [facility] 2019-02-02 2019-02-02 [facility] 26 [id number] Common 13:30:00 13:30:00 t Bone Bone and Spiri t and Joint Joint - [facility] 2018-10-27 2018-10-27 [facility] 24 [id number] Common 09:30:00 09:30:00 t Bone Bone and Spiri t and Joint Joint - [facility] 2018-06-28 2018-06-28 [facility] 15 [id number] Common 11:00:00 11:00:00 t Bone Bone and Spiri t and Joint Joint - [facility] 2018-04-28 2018-04-28 [facility] [id number] Common 09:00:00 09:00:00 t Bone Bone and Spiri t and Joint Joint - [facility] 2018-03-01 2018-03-01 [facility] 15 [id number] Common 14:30:00 14:30:00 t Bone Bone and Spiri t and Joint Joint - [facility] Results Test Description Test Time Test Comments Results Result Comments Source CBC (INCLUDES DIFF/PLT)-Q 2023-03-25 03:00:00 Test Item Value Reference Range Interpretation Comme nts WHITE BLOOD CELL COUNT-Q 4.8 See_Comment [A utomated message] The (test code = 6690-2) system which generated this result tra nsmitted reference range : 3.8 - 10.8 Thousand/u L. The reference range was not used to interpr et this result as lourdes l/abnormal. RED BLOOD CELL COUNT-Q 2.85 See_Comment L [Aut omated message] The (test code = 789-8) system w [employer] generated this result tra nsmitted reference range : 3.80 - 5.10 Million/uL . The reference range was not used to interpr et this result as lourdes l/abnormal. HEMOGLOBIN-Q (test code 9.6 g/dL 11.7-15.5 L = 718-7) HEMATOCRIT-Q (test code 26.6 % 35.0-45.0 L = 4544-3) MCV-Q (test code = 93.3 fL 80.0-100.0 787-2) MCH-Q (test code = 33.7 pg 27.0-33.0 H 785-6) MCHC-Q (test code = 36.1 g/dL 32.0-36.0 H 786-4) RDW-Q (test code = 14.4 % 11.0-15.0 788-0) PLATELET COUNT-Q (test 157 See_Comment [Aut omated message] The code = 777-3) system which g enerated this result tra nsmitted reference range : 140 - 400 Thousand/uL. Th e reference range was not u sed to interpret this result as normal/abnormal . MPV-Q (test code = 12.2 fL 7.5-12.5 776-5) ABSOLUTE NEUTROPHILS-Q 2424 See_Comment [Aut omated message] The (test code = 751-8) system w [employer] generated this result tra nsmitted reference range : 1500 - 7800 cells/uL. The reference range was not used to interpr et this result as lourdes l/abnormal. ABSOLUTE LYMPHOCYTES-Q 2026 See_Comment [Aut omated message] The (test code = 731-0) system w [employer] generated this result tra nsmitted reference range : 850 - 3900 cells/uL. The reference range was not used to interpr et this result as lourdes l/abnormal. ABSOLUTE MONOCYTES-Q 259 See_Comment [Autom ated message] The (test code = 742-7) system w [employer] generated this result tra nsmitted reference range : 200 - 950 cells/uL. The r eference range was not u sed to interpret this result as normal/abnormal . ABSOLUTE EOSINOPHILS-Q 62 See_Comment [Aut omated message] The (test code = 711-2) system w [employer] generated this result tra nsmitted reference range : 15 - 500 cells/uL. The r eference range was not u sed to interpret this result as normal/abnormal . ABSOLUTE BASOPHILS-Q 29 See_Comment [Autom ated message] The (test code = 704-7) system w Shout[employer] generated this result tra nsmitted reference range : 0 - 200 cells/uL. The r eference range was not u sed to interpret this result as normal/abnormal . NEUTROPHILS-Q (test code 50.5 % = 770-8) LYMPHOCYTES-Q (test code 42.2 % = 736-9) MONOCYTES-Q (test code = 5.4 % 5905-5) EOSINOPHILS-Q (test code 1.3 % = 713-8) BASOPHILS-Q (test code = 0.6 % RE PORT COMMENT:FASTING:NO 706-2) UNRULY (test code = UNRULY) PERFORMED BY [facility]; [address] [place] [phone]; JULES MOORE MD,PHD. Lab Interpretation (test Abnormal code = 29467-7) [facility] (INCLUDES DIFF/PLT)-[id number] 22:00:00 Test Item Value Reference Range Interpretation Comments WHITE BLOOD CELL 6.2 See_Comment [Automated COUNT-Q (test code = message ] The 6690-2) system which generated this result transmitted reference range : 3.8 - 10.8 Thousand/uL. Th e reference range was not used to interpret this result as normal/abnormal . RED BLOOD CELL 3.24 See_Comment L [Automated COUNT-Q (test code = message ] The 849-8) system which generated this result transmitted reference range : 3.80 - 5.10 Million/uL. The reference range was not used to interpret this result as normal/abnormal . HEMOGLOBIN-Q (test 9.6 g/dL 11.7-15.5 L code = 718-7) HEMATOCRIT-Q (test 28.8 % 35.0-45.0 L code = 4544-3) MCV-Q (test code = 88.9 fL 80.0-100.0 787-2) MCH-Q (test code = 29.6 pg 27.0-33.0 785-6) MCHC-Q (test code = 33.3 g/dL 32.0-36.0 786-4) RDW-Q (test code = 16.5 % 11.0-15.0 H 788-0) PLATELET COUNT-Q 208 See_Comment [Automated (test code = 777-3) message] The system which generated this result transmitted reference range : 140 - 400 Thousand/uL. Th e reference range was not used to interpret this result as normal/abnormal . MPV-Q (test code = 11.0 fL 7.5-12.5 776-5) ABSOLUTE 3646 See_Comment [Automated NEUTROPHILS-Q (test message] The code = 751-8) system which generated this result transmitted reference range : 1500 - 7800 cells/uL. The reference range was not used to interpret this result as normal/abnormal . ABSOLUTE 1879 See_Comment [Automated LYMPHOCYTES-Q (test message] The code = 731-0) system which generated this result transmitted reference range : 850 - 3900 cells/uL. The reference range was not used to interpret this result as normal/abnormal . ABSOLUTE MONOCYTES-Q 558 See_Comment [Autom ated (test code = 742-7) message] The system which generated this result transmitted reference range : 200 - 950 cells/uL. The reference range was not used to interpret this result as normal/abnormal . ABSOLUTE 68 See_Comment [Automated EOSINOPHILS-Q (test message] The code = 711-2) system which generated this result transmitted reference range : 15 - 500 cells/uL. The reference range was not used to interpret this result as normal/abnormal . ABSOLUTE BASOPHILS-Q 50 See_Comment [Autom ated (test code = 704-7) message] The system which generated this result transmitted reference range : 0 - 200 cells/u L. The reference range was not used to interpr et this result as normal/abnormal . NEUTROPHILS-Q (test 58.8 % code = 770-8) LYMPHOCYTES-Q (test 30.3 % code = 736-9) MONOCYTES-Q (test 9.0 % code = 5905-5) EOSINOPHILS-Q (test 1.1 % code = 713-8) BASOPHILS-Q (test 0.8 % code = 706-2) UNRULY (test code = UNRULY) PERFORMED BY [facility]; [address] [place] [address]; RON MOREAU MD Lab Interpretation Abnormal (test code = 01088-9) [facility] Notes Date/Time Note Provider Source 2023-04-13 08:31:21 9366-82-73X57:31:21Formatting [facility] of this note is different from the original.Requested Prescriptions Pending Prescriptions Disp Refills FOLIC ACID 1 mg tablet [Pharmacy Med Name: FOLIC ACID 1 MG TABLET] 90 tablet Sig: TAKE 1 TABLET BY MOUTH EVERY DAY There is no refill protocol information for this order Lrx 03/25/2023#180 sent 03/25/2023 Too soon to refill 79833-5Mpiddledp encounter ZopmBJ3616-03-37M08:40:47Teleph one encounter NoteTXT1.2.840.733998.1.13.104. 2.7.2.657106|[id number] [facility] uqzk71942-8RzkuLOIVQMPYDR[address] 14813HIMUIEPZCNKZBHNKUBASAW3482 -09-19T08:40:471.2.840.601372.1 .72.3.15|1.2.840.458969.1.13.10 4.2.7.2.727879_[id number] 2023-03-25 14:07:34 2328-05-53G69:07:34Formatting [facility] of this note is different from the original.Called pt to discuss. Reviewed with pt providers note. Reviewed new dose/sig on both prescriptions. methotrexate 2.5 mg tablet 48 tablet 0 03/25/2023 06/23/2023 No Sig: Take 4 tablets by mouth weekly foLIC acid 1 mg tablet 180 tablet 0 03/25/2023 No Sig: Take 2 tablets by mouth in the morning. Pt repeated back and verbalized understanding. Pt states she will follow up with opthamologist as vision issues may be related to glaucoma. Advised pt call us with any changes or concerns. [place] [address]-8Fhbwkocwj encounter ZnevGN1147-91-68I12:13:26Teleph one encounter NoteTXT1.2.840.033303.1.13.104. 2.7.2.935378|[id number] ble for patient mypw54050-1WvvuINKUDAACWS[address] ZraqKqnvmddjtFbhiuvhilTIJG86066 79556QOJLVJCFOTJOGUOVUQQNFA1869 -08-31T14:13:261.2.840.895595.1 .72.3.15|1.2.840.356638.1.13.10 4.2.7.2.727879_[id number] 2023-03-25 11:53:46 1108-57-05K59:53:46Formatting [facility] of this note might be different from the original.Called pt to discuss No answer. VM note set up Nurse to attempt to julian at later time 20821-5Oodaksysm encounter JguvQT8838-39-51D77:03:13Teleph one encounter NoteTXT1.2.840.843609.1.13.104. 2.7.2.828363|[id number] ble for patient ondt71021-5ZiatFYJIOFATNR[address] VjgnTkrivzkscFzjesscnkXVAG62895 29806MRLYMMHHCYNJTBVDOFBWHA4863 -08-31T12:03:131.2.840.474485.1 .72.3.15|1.2.840.419148.1.13.10 4.2.7.2.727879_[id number] 2023-03-25 09:08:02 4882-06-51A31:08:02[facility] this note might be different from the original.Recommend increasing folic acid to 2 mg daily. Also decrease methotrexate dose to 4 pills once a week. Agree with seeing chief merchandising officer for blurry vision. Can by symptom of dry eyes. Highly unlikely this is related to Plaquenil especially since her last eye exam did not show evidence of toxicity. 53839-9Enefnitgv encounter DmcbLS9232-62-33F19:15:18Teleph one encounter NoteTXT1.2.840.253322.1.13.104. 2.7.2.839012|[id number] ble for patient gkjz56178-0IaazWVVTOYREZY[address] EpjpHvlstfqkwIzqviexuiVABX34794 53805RVEEJETHKBPLPYGZPFZMDW1780 -08-31T09:15:181.2.840.446814.1 .72.3.15|1.2.840.246961.1.13.10 4.2.7.2.727879_[id number] 2023-03-25 08:36:06 5790-98-85L24:36:06Form[facility] of this note might be different from the original.Images from the original note were not included.Karely Posadas PA-C Cavazos, Susana L, Arinas reviewed. OK to refill MTX. Remind patient that she must be seen for an office visit in order to receive further refills. Also she is still anemic - is this being addressed by her PCP? Nurse called pt to discuss. Pt states her pcp is aware of her anemia and she is getting iron infusions; last infusion Wednesday. Pt states she will provide a copy of labs to her PCP and has an appt to see him next Wednesday. Pt c/o of upset stomach every time she takes methotrexate. C/O diarrhea and cramping. Nurse reviewed with pt how she is taking MTX; pt confirm 4 in am and 4 in Pm once weekly and folic acid 1 mg daily.Pt states her eye vision has been "blurred" and wants to know if this is related to plaquenil. Advised pt to see chief merchandising officer (Gerard). Pt can not recall when last plaquenil eye exam was. Estimated 3 months ago. Records show last eye exam 10/27/22Advised pt to call and see if they can get her on the schedule. Pt agrees with plan. Routing to provider. JUN 04PT aware that she will need to be seen in Follow up for further refills 53902-9Poupiqnzb encounter JyelMX9794-76-15X97:04:36Teleph one encounter NoteTXT1.2.840.384943.1.13.104. 2.7.2.532877|[id number] ble for patient dkuo46620-5JawmWDEIVJINYN[address] StreetTX[place] 99758RKYTZWNTYFBBURAELTYEGY7125 -08-31T09:04:361.2.840.869914.1 .72.3.15|1.2.840.971727.1.13.10 4.2.7.2.727879_[id number] 2023-03-23 09:31:59 1079-62-19I79:31:59Formatting [facility] of this note might be different from the original.Awaiting pt to provide lab work results from [facility]; once received provider will review and sent in scriptPt notified via [employer]. 41294-0Fhljbmtdd encounter RswbGT6206-35-42N27:32:39Teleph one encounter NoteTXT1.2.840.388160.1.13.104. 2.7.2.516042|[id number] ble for patient jxod22498-4NdgyQAWQDNRPXH[address] 33893BWAQSXDRWKWYLOBRXQVPQG9566 -08-29T09:32:391.2.840.953459.1 .72.3.15|1.2.840.658108.1.13.10 4.2.7.2.727879_[id number] 2023-03-22 09:19:48 9577-20-21K26:19:48Formatting [facility] of this note is different from the original.Per JUSTINE pt to RTC in 3-4 monthsRefill request routed to provider for review:Requested Prescriptions Pending Prescriptions Disp Refills METHOTREXATE 2.5 mg tablet [Pharmacy Med Name: METHOTREXATE 2.5 MG TABLET] 32 tablet 2 Sig: TAKE 8 TABLETS BY MOUTH WEEKLY TAKE 4 PILLS IN THE MORNING AND 4 PILLS IN THE EVENING There is no refill protocol information for this order Recent VisitsDate Type Provider Dept 08/20/22 Office Visit Karely Posadas PA-C [facility] Showing recent visits within past 365 days and meeting all other requirementsFuture AppointmentsDate Type Provider Dept 05/13/23 Appointment Karely Posadas PA-C [facility] Showing future appointments within next 365 days and meeting all other requirements Orders Only on 12/14/2022 Component Date Value GLUCOSE-Q 12/14/2022 87 UREA NITROGEN (BUN)-Q 12/14/2022 9 CREATININE-Q 12/14/2022 0.81 EGFR-Q 12/14/2022 84 BUN/CREATININE RATIO-Q 12/14/2022 NOT APPLICABLE SODIUM-Q 12/14/2022 137 POTASSIUM-Q 12/14/2022 4.1 CHLORIDE-Q 12/14/2022 102 CARBON DIOXIDE-Q 12/14/2022 27 CALCIUM-Q 12/14/2022 9.9 PROTEIN, TOTAL-Q 12/14/2022 6.6 ALBUMIN-Q 12/14/2022 3.8 GLOBULIN-Q 12/14/2022 2.8 ALBUMIN/GLOBULIN RATIO-Q 12/14/2022 1.4 BILIRUBIN, TOTAL-Q 12/14/2022 0.4 ALKALINE PHOSPHATASE-Q 12/14/2022 118 AST-Q 12/14/2022 22 ALT-Q 12/14/2022 14 WHITE BLOOD CELL COUNT-Q 12/14/2022 6.2 RED BLOOD CELL COUNT-Q 12/14/2022 3.24 (L) HEMOGLOBIN-Q 12/14/2022 9.6 (L) HEMATOCRIT-Q 12/14/2022 28.8 (L) MCV-Q 12/14/2022 88.9 MCH-Q 12/14/2022 29.6 MCHC-Q 12/14/2022 33.3 RDW-Q 12/14/2022 16.5 (H) PLATELET COUNT-Q 12/14/2022 208 MPV-Q 12/14/2022 11.0 ABSOLUTE NEUTROPHILS-Q 12/14/2022 3646 ABSOLUTE LYMPHOCYTES-Q 12/14/2022 1879 ABSOLUTE MONOCYTES-Q 12/14/2022 558 ABSOLUTE EOSINOPHILS-Q 12/14/2022 68 ABSOLUTE BASOPHILS-Q 12/14/2022 50 NEUTROPHILS-Q 12/14/2022 58.8 LYMPHOCYTES-Q 12/14/2022 30.3 MONOCYTES-Q 12/14/2022 9.0 EOSINOPHILS-Q 12/14/2022 1.1 BASOPHILS-Q 12/14/2022 0.8 C-REACTIVE PROTEIN-Q 12/14/2022 1.0 ICD-10-CM 1. Sjogren's syndrome, with unspecified organ involvement M35.00 2. Polyarthralgia: RF 30, CCP 21 M25.50 Please advise.Jany Griffith RN 03/22/2023 9:19 AM 47700-4Mtpuclgrz encounter GpygCB2530-87-92U60:20:21Teleph one encounter NoteTXT1.2.840.453034.1.13.104. 2.7.2.817448|[id number] ble for patient xejs59201-3ZvkrYJHTJXNLPN[address] RjneWewfshdloHqiqiixrgLFDZ38[address] 93129TRSKLNALGNHPMZUNJYBUYX0663 -08-28T09:20:211.2.840.790798.1 .72.3.15|1.2.840.502712.1.13.10 4.2.7.2.727879_[id number] 2023-03-16 16:16:51 7544-19-93P03:16:51Formatting Jany levy RN [facility] of this note might be different from the original.Called pt to discuss. No answer. 54682-6Zpdoeswoc encounter PdckZN9762-55-90W84:19:28Teleph one encounter NoteTXT1.2.840.155209.1.13.104. 2.7.2.448632|[id number] ble for patient yfqo76116-8NytcPX347625122Skxat a L Cavazos RN[address] 38270YWILMTBQVAJZMVHLWCSMPA7776 -08-22T16:19:281.2.840.625015.1 .72.3.15|1.2.840.812636.1.13.10 4.2.7.2.727879_[id number] 2023-03-16 14:09:25 2297-83-51W39:09:25Formatting [facility] of this note might be different from the original.Can fax lab order for CBC and CMP. Can give 90 day supply after we review lab results but she must be seen face to face for further refills. 85069-3Idtabfgdl encounter EnaiHE1822-40-07O59:11:23Teleph one encounter NoteTXT1.2.840.512326.1.13.104. 2.7.2.696442|[id number] ble for patient flnz22789-9EnozSNYFVHHRDA[address]TX[address] 01203JSNARKVHLLRWKKDOGOIJED3294 -08-22T14:11:231.2.840.896872.1 .72.3.15|1.2.840.351181.1.13.10 4.2.7.2.727879_[id number] 2023-03-16 13:27:55 8543-02-76K22:27:55Formatting [facility] of this note might be different from the original.Justine NOTE 08/20/22Labs last done 11/2022 52682-7Kiamhjeuo encounter NssqEI4306-19-45E83:31:15Teleph one encounter NoteTXT1.2.840.138584.1.13.104. 2.7.2.154704|[id number] [facility] vxdo55823-4ZesrTVDIRCJQIY[address] LhhhNmwuvnayxGvwmbmfftLGEF73111 34785DXOGJMCRWMVFNMKACXBNOT6494 -08-22T13:31:151.2.840.179513.1 .72.3.15|1.2.840.290396.1.13.10 4.2.7.2.727879_[id number] 2023-03-12 09:08:57 7480-01-02V36:08:57Formatting [facility] - Health of this note is different from the original.Jackeline Weinstein 947028V99/18/23Incoming call from patient after receiving a text message from [facility] regarding overdue A1c. [facility]. Patient was interested in seeing a diabetic doctor in [place] or [place], I was unable to schedule a new appointment for Endo- I gave patient the number to the endo clinic in [place] and transferred the call. Current overdue topics are as followsHealth Maintenance Due Topic Date Due MENINGOCOCCAL B VACCINES (1 of 4 - Increased Risk Bexsero 2-dose series) Never done Depression Screening Never done Zoster Recombinant Vaccine (SHINGRIX) (1 of 2) Never done Colorectal Cancer Screening Never done PNEUMOCOCCAL 0-64 YEARS COMBINED SERIES (2 - PCV) 07/30/2021 HgA1C 10/05/2021 URINE MICROALBUMIN 04/29/2022 LDL-C 04/29/2022 FOOT EXAM 05/12/2022 SARS-CoV-2 (COVID-19) Vaccine (5 - Moderna risk series) 05/12/2022 EYE EXAM 11/06/2022 Breast Cancer Screening (MAMMOGRAM) 11/14/2022 39718-5Hrdudcxca encounter HzdxHV6746-90-01M38:20:49Teleph one encounter NoteTXT1.2.840.523802.1.13.104. 2.7.2.965334|[id number] [facility] egvq13018-2XmkjPI198097993Tfvls a [place] [address] CyxvCvpnffabsRskyweksyCNNN[address] 84364ADVVIWEMRWHSKTGATWHPWZ0514 -08-18T09:20:491.2.840.545294.1 .72.3.15|1.2.840.488609.1.13.10 4.2.7.2.727879_[id number]
[2023-06-21 12:00] LABS: Albumin 3.8 g/dL (3.4-5.0); Bilirubin Total 0.8 mg/dL (0.2-1.0); Potassium 3.5 mEq/L (3.5-5.1); Protein, Total 7.3 g/dL (6.4-8.2)
[2023-06-21 12:12] LABS: Specific Gravity 1.016 (1.005-1.030); Urine Bacteria >50 /HPF (<20); Urine Bilirubin NEGATIVE (Negative); Urine Blood Negative (Negative); Urine Clarity Extremely Turbid (Clear); Urine Color Yellow (Yellow); Urine Glucose NEGATIVE (Negative); Urine Mucus Slight /HPF (None Seen); Urine Protein TRACE (Negative); Urine RBC <5 /HPF (None Seen); Urine Urobilinogen Normal (Normal); Urine pH 5.5 (5.0-7.0)
--- NOTE | 2023-06-21 12:41 | RAD REPORT ---
EXAM DESCRIPTION: CT - Abdomen Pelvis W Contrast - 06/21/2023 12:12 pm CLINICAL HISTORY: Nausea and vomiting History of gastric bypass COMPARISON: No comparisons TECHNIQUE: Thin cut axial CT imaging of the abdomen and pelvis was performed following intravenous a dministration of 100 mL Isovue 300. Multiplanar reformats were generated and reviewed. All CT scans are performed using dose optimization technique as appropriate and may include automated exposure control or mA/KV adjustment according to patient size. FINDINGS: No suspicious findings in the lung bases. The liver, spleen, adrenal glands, and pancreas show no suspicious findings. Gallbladder was surgical ly removed Symmetric renal function is seen with no hydronephrosis or suspicious renal mass. Sequelae of Dayday-en-Y gastric bypass. Distended upper abdominal small bowel loops, with air-fluid lev els. Distention extending beyond the gastrojejunostomy and jejunojejunostomy, with gradual transition to nondistended small bowel in the flanks bilaterally and lower abdomen. No bowel wall thickening. N o free air, free fluid or inflammatory stranding. No hernia, mass or bulky lymphadenopathy. The urina ry bladder is decompressed limiting evaluation. No suspicious bony findings. IMPRESSION: Distended upper abdominal small bowel loops, with gradual transition to nondistended bow el in the flanks and lower abdomen, suggestive of ileus. Sequelae of Dayday-en-Y gastric bypass and cholecystectomy.
[2023-06-21] MEDS ORDERED: NA CHLORIDE 0.9% 1,000 ML ONE (12:52)
[2023-06-21] MEDS ORDERED: ONDANSETRON 4 MG/2 ML VIAL ONE (12:52)
--- NOTE | 2023-06-21 14:44 | ER ---
Nurse's Notes [facility] Name: Jackeline Weinstein Age: 57 yrs Sex: Female : 1965 Arrival Date: 06/21/2023 Time: 10:53 Bed 8 Private MD: Diagnosis: Ileus, unspecified;UTI/ Urinary tract infection, site not specified Presentation: 06/21 11:02 Chief complaint: Patient states: "for the past couple weeks, I've had N/V and feeling mb9 more tired than usual. I was taking Ozempic for weight loss but i've been off them since 06/05/23". Coronavirus screen: Vaccine status: Patient reports receiving the 2nd dose of the covid vaccine. Ebola Screen: No symptoms or risks identified at this time. Initial Sepsis Screen: Does the patient meet any 2 criteria? No. Patient's initial sepsis screen is negative. Does the patient have a suspected source of infection? No. Patient's initial sepsis screen is negative. Risk Assessment: Do you want to hurt yourself or someone else? Patient reports no desire to harm self or others. Onset of symptoms was June 21, 2023. 11:02 Method Of Arrival: Ambulatory mb9 11:02 Acuity: CHELSY 3 mb9 Triage Assessment: 11:06 General: Appears uncomfortable, Behavior is calm, cooperative. Pain: Complains of pain mb9 in abdomen. EENT: No signs and/or symptoms were reported regarding the EENT system. Neuro: Loja Agitation-Sedation Scale (RASS): 0 - Alert and Calm Level of Consciousness is awake, alert, obeys commands. Cardiovascular: Patient's skin is warm and dry. Respiratory: Airway is patent Respiratory effort is even, unlabored, Respiratory pattern is regular, symmetrical. GI: Reports nausea, vomiting. : No signs and/or symptoms were reported regarding the genitourinary system. Derm: Skin is pink, warm \\T\\ dry. Musculoskeletal: Range of motion: intact in all extremities. Historical: - Allergies: 11:04 Lyrica; mb9 - Home Meds: 11:04 allopurinol 100 mg oral tablet [Active]; lisinopril 20 mg oral tablet [Active]; mb9 bupropion HCl 200 mg oral tablet, sustained-release 12 hr [Active]; atorvastatin 10 mg oral tablet [Active]; gabapentin 800 mg Oral tab 1 tab 3 times per day [Active]; - PMHx: 11:04 Chronic pain; Fibromyalgia; Gout; Hypertension; Rheumatoid Arthritis; mb9 - PSHx: 11:04 gastric bypass; section; mb9 - Immunization history:: Adult Immunizations up to date. - Social history:: Smoking status: Patient denies any tobacco usage or history of. - Family history:: not pertinent. Screenin:54 [facility] ED Fall Risk Assessment (Adult) Score/Fall Risk Level 0 - 2 = Low Risk. Abuse iw screen: Denies threats or abuse. Denies injuries from another. Nutritional screening: No deficits noted. Tuberculosis screening: No symptoms or risk factors identified. Assessment: 12:54 General: Appears in no apparent distress. Behavior is calm, cooperative. Pain: Denies iw pain. Neuro: Level of Consciousness is awake, alert, obeys commands, Oriented to person, place, time, situation, Moves all extremities. Full function. Cardiovascular: Patient's skin is warm and dry. Respiratory: Respiratory effort is even, unlabored, Respiratory pattern is regular, symmetrical. GI: Reports diarrhea, nausea, vomiting. Derm: Skin is intact, is healthy with good turgor. Musculoskeletal: No signs and/or symptoms reported regarding the musculoskeletal system. Range of motion: intact in all extremities. Vital Signs: 11:02 BP 159 / 80; Pulse 88; Resp 18; Temp 97.5; Pulse Ox 100% ; Weight 79.38 kg; Height 5 mb9 ft. 3 in. ; 12:59 BP 139 / 74; Pulse 78; Resp 16; Pulse Ox 98% on R/A; iw 11:02 Body Mass Index 31.00 (79.38 kg, 160.02 cm) mb9 ED Course: 10:54 Patient arrived in ED. rg4 10:55 Andrei Dudley MD is Attending Physician. rt 11:02 Arm band placed on. mb9 11:04 Triage completed. mb9 11:22 CBC with Diff Sent. bc6 11:22 CMP Sent. bc6 11:22 Lipase Sent. bc6 11:22 Inserted saline lock: 20 gauge in left antecubital area, using aseptic technique. Blood bc6 collected. 12:13 CT Abd/Pelvis - IV Contrast Only In Process Unspecified. EDMS 12:31 Teresa Baum, RN is Primary Nurse. iw 14:43 Juve Pham MD is Referral Physician. rt 14:53 Patient has correct armband on for positive identification. Provided Education on: . iw 14:53 No provider procedures requiring assistance completed. IV discontinued, intact, iw bleeding controlled, No redness/swelling at site. Pressure dressing applied. Administered Medications: 12:54 Drug: NS 0.9% IV 1000 ml IV at 1 bolus Per protocol; 1000 mL bolus Route: IV; Rate: 1 iw bolus; Site: left antecubital; 14:00 Follow up: IV Status: Completed infusion iw 12:54 Drug: Ondansetron IVP 4 mg IVP once; over 2 minutes Route: IVP; Site: left antecubital; iw 13:30 Follow up: Response: No adverse reaction iw Medication: 12:55 VIS not applicable for this client. iw Outcome: 14:44 Discharge ordered by MD. rt 14:53 Discharged to home ambulatory, with family, iw 14:53 Condition: good 14:53 Discharge instructions given to patient, family, Instructed on discharge instructions, follow up and referral plans. medication usage, Demonstrated understanding of instructions, follow-up care, medications, Prescriptions given X 2, 14:54 Patient left the ED. iw Signatures: Dispatcher [employer] EDMS Teresa Baum, RN RN iw Sherlyn Jacobs rg4 Sunshine Mathis, RN RN mb9 Andrei Dudley MD MD rt Valentina Sequeira bc6 Corrections: (The following items were deleted from the chart) 14:54 14:53 Discharge instructions given to patient, family, Instructed on discharge iw instructions, follow up and referral plans. medication usage, Demonstrated understanding of instructions, follow-up care, medications, Prescriptions given X 1, iw
--- NOTE | 2023-06-21 14:44 | EDPHYS ---
Physician Documentation [facility] Name: Jackeline Weinstein Age: 57 yrs Sex: Female : 1965 Arrival Date: 06/21/2023 Time: 10:53 Bed 8 Private MD: ED Physician Andrei Dudley HPI: 06/21 11:46 This 57 yrs old Female presents to ER via Ambulatory with complaints of Flu rt Symptoms. 11:46 Patient presents to the ED with nausea vomiting off and on for few weeks. Patient did rt have a prior gastric bypass surgery. She recently had her dose of Ozempic increased, she attributes this to her increasing nausea vomiting. She states that she has difficulty tolerating by mouth. States symptoms have worsened. Denies any significant abdominal pain, does report a mild generalized weakness. Denies other acute complaint at this time, symptoms are moderate severity, no other aggravating alleviating factors.. Historical: - Allergies: 11:04 Lyrica; mb9 - Home Meds: 11:04 allopurinol 100 mg oral tablet [Active]; lisinopril 20 mg oral tablet [Active]; mb9 bupropion HCl 200 mg oral tablet, sustained-release 12 hr [Active]; atorvastatin 10 mg oral tablet [Active]; gabapentin 800 mg Oral tab 1 tab 3 times per day [Active]; - PMHx: 11:04 Chronic pain; Fibromyalgia; Gout; Hypertension; Rheumatoid Arthritis; mb9 - PSHx: 11:04 gastric bypass; section; mb9 - Immunization history:: Adult Immunizations up to date. - Social history:: Smoking status: Patient denies any tobacco usage or history of. - Family history:: not pertinent. ROS: 11:46 Constitutional: Negative for fever, chills, and weight loss, Cardiovascular: Negative rt for chest pain, palpitations, and edema, Respiratory: Negative for shortness of breath, cough, wheezing, and pleuritic chest pain, MS/Extremity: Negative for injury and deformity, Skin: Negative for injury, rash, and discoloration, Neuro: Negative for headache, weakness, numbness, tingling, and seizure, Psych: Negative for depression, anxiety, suicide ideation, homicidal ideation, and hallucinations, 11:46 Abdomen/GI: Positive for nausea, vomiting, Exam: 11:46 Constitutional: This is a well developed, well nourished patient who is awake, alert, rt and in no acute distress. Head/Face: Normocephalic, atraumatic. Chest/axilla: Normal chest wall appearance and motion. Nontender with no deformity. No lesions are appreciated. Cardiovascular: Regular rate and rhythm with a normal S1 and S2. No gallops, murmurs, or rubs. Normal PMI, no JVD. No pulse deficits. Respiratory: Lungs have equal breath sounds bilaterally, clear to auscultation and percussion. No rales, rhonchi or wheezes noted. No increased work of breathing, no retractions or nasal flaring. Abdomen/GI: Soft, non-tender, with normal bowel sounds. No distension or tympany. No guarding or rebound. No evidence of tenderness throughout. Skin: Warm, dry with normal turgor. Normal color with no rashes, no lesions, and no evidence of cellulitis. MS/ Extremity: Pulses equal, no cyanosis. Neurovascular intact. Full, normal range of motion. Neuro: Awake and alert, GCS 15, oriented to person, place, time, and situation. Cranial nerves II-XII grossly intact. Motor strength 5/5 in all extremities. Sensory grossly intact. Cerebellar exam normal. Normal gait. Psych: Awake, alert, with orientation to person, place and time. Behavior, mood, and affect are within normal limits. Vital Signs: 11:02 BP 159 / 80; Pulse 88; Resp 18; Temp 97.5; Pulse Ox 100% ; Weight 79.38 kg; Height 5 mb9 ft. 3 in. ; 12:59 BP 139 / 74; Pulse 78; Resp 16; Pulse Ox 98% on R/A; iw 11:02 Body Mass Index 31.00 (79.38 kg, 160.02 cm) mb9 MDM: 11:06 Patient medically screened. rt 21:34 Differential diagnosis: Obstruction, ileus, medication side effect, electrolyte rt disturbance. Data reviewed: vital signs, nurses notes, lab test result(s), radiologic studies. Consideration of Admission/Observation Escalation of care including admission/observation considered. Patient strongly desirous of discharge, symptoms significantly improving with treatment in the ED, after discussion with surgeon, patient is appropriate for outpatient care, patient to follow-up as an outpatient. Return precautions discussed. Independent interpretation of the following test(s) in the Emergency Department CT Scan: My interpretation is No bowel obstruction patient CT scan images. Care significantly affected by the following chronic conditions: Hypertension. Counseling: I had a detailed discussion with the patient and/or guardian regarding the historical points, exam findings, and any diagnostic results supporting the discharge/admit diagnosis, lab results, radiology results, the need for outpatient follow up, to return to the emergency department if symptoms worsen or persist or if there are any questions or concerns that arise at home. Response to treatment: the patient's symptoms have markedly improved after treatment. 06/21 11:07 Order name: CBC with Diff; Complete Time: 12:44 rt 06/21 11:07 Order name: CMP; Complete Time: 12:44 rt 06/21 11:07 Order name: Lipase; Complete Time: 12:44 rt 06/21 11:07 Order name: Urinalysis w/ reflexes; Complete Time: 12:44 rt 06/21 12:16 Order name: Urine Culture EDMS 06/21 11:07 Order name: CT Abd/Pelvis - IV Contrast Only; Complete Time: 12:44 rt 06/21 11:07 Order name: IV Saline Lock; Complete Time: 11:22 rt 06/21 11:07 Order name: Labs collected and sent; Complete Time: 11:22 rt Administered Medications: 12:54 Drug: NS 0.9% IV 1000 ml IV at 1 bolus Per protocol; 1000 mL bolus Route: IV; Rate: 1 iw bolus; Site: left antecubital; 14:00 Follow up: IV Status: Completed infusion iw 12:54 Drug: Ondansetron IVP 4 mg IVP once; over 2 minutes Route: IVP; Site: left antecubital; iw 13:30 Follow up: Response: No adverse reaction iw Disposition Summary: 06/21/23 14:44 Discharge Ordered Notes: Location: Home rt Problem: new rt Symptoms: have improved rt Condition: Stable rt Diagnosis - Ileus, unspecified rt - UTI/ Urinary tract infection, site not specified rt Followup: rt - With: Juve Pham MD - When: 5 - 6 days - Reason: Discharge Instructions: - Discharge Summary Sheet rt - Urinary Tract Infection, Adult rt - Ileus rt Forms: - Medication Reconciliation Form rt - Thank You Letter rt - Antibiotic Education rt - Prescription Opioid Use rt - Patient Portal Instructions rt - Leadership Thank You Letter rt Prescriptions: - ondansetron 4 mg Oral Tablet,disintegrating - take 1 tablet ORAL route every 6 hours; 30 tablet; Refills: 0, Product rt Selection Permitted - Cephalexin 500 mg Oral capsule - take 1 capsule ORAL route every 8 hours for 7 days; 21 capsule; Refills: 0, rt Product Selection Permitted Signatures: Dispatcher [employer] Teresa Isaac RN RN iw Breneman, Mary Beth RN RN mb9 Andrei Dudley MD MD rt
[2023-06-21 15:08] VITALS: TEMP 97.5
[2023-06-21 15:46] VITALS: BP 139/74; O2SAT 98
== END 2023-06-21 14:54 | disposition home or self-care (01) ==
LOC: ER 10:53
DX: N39.0 Urinary tract infection, site not specified (principal); K56.7 Ileus, unspecified; I10 Essential (primary) hypertension; M06.9 Rheumatoid arthritis, unspecified; M79.7 Fibromyalgia
CPT/HCPCS: 96361; 87088; 85025; 81001; 87086; 36415; 87077; 87186; 83690; 80053; 74177; 96374; 99284; Q9967; J2405; J7030